=== PATIENT | female | born 1965 | race Caucasian/White ===

== ENCOUNTER 2016-09-20 15:02 | Outpatient (RCR) | payer OTHER, MEDICAID ==
[~2016-09-20 15:02] MED LIST: ASP81CT; ASP81TEC PO; C250T; CLD600T; CTLP20T PO; ENAL2.5T PO; FRSM20T PO; GABA600T2; GBPN600T; HYDR-3720; INSULIN PUMP; LEVO75TA57; MTC10T; MTP25TSR PO; MULT1TAB63; OMEP40CA36 PO; ONDA8TAB6 PO; ONDAN4ODT PO; OTC POTASSIUM; POTA10TA6 PO; PRILOSEC; VARE1TAB17 PO; decadron; humalog; levemir; oxycodone
[2016-09-20 15:18] LABS: BASOPHILS # (AUTO) 0.1 10^3/uL (0.0-0.1); BASOPHILS % (AUTO) 1 % (0-10); EOSINOPHILS # (AUTO) 0.1 10^3/uL (0.0-0.3); EOSINOPHILS % (AUTO) 2 % (0-10); LYMPHOCYTES # (AUTO) 1.1 X 10^3 (1.0-4.0); LYMPHOCYTES % (AUTO) 31 % (12-44); MEAN CORPUSCULAR HEMOGLOBIN 32 PG (25-34); MEAN CORPUSCULAR HGB CONC 34 G/DL (32-36); MEAN CORPUSCULAR VOLUME 95 FL (80-99); MEAN PLATELET VOLUME 8.9 FL (7.4-10.4); MONOCYTES # (AUTO) 0.4 X 10^3 (0.0-1.0); MONOCYTES % (AUTO) 10 % (0-12); NEUTROPHILS % (AUTO) 55 % (42-75); PLATELET COUNT 250 10^3/uL (130-400); RED BLOOD COUNT 4.11 10^6/uL (4.35-5.85); RED CELL DISTRIBUTION WIDTH 13.2 % (10.0-14.5); WHITE BLOOD COUNT 3.6 10^3/uL (4.3-11.0)
[2016-09-20 16:15] LABS: ALANINE AMINOTRANSFERASE 22 U/L (0-55); ALBUMIN 3.9 G/DL (3.2-4.5); ANION GAP 6 MMOL/L (5-14); ASPARTATE AMINO TRANSFERASE 26 U/L (5-34); BILIRUBIN,TOTAL 0.3 MG/DL (0.1-1.0); BLOOD UREA NITROGEN 17 MG/DL (7-18); BUN/CREATININE RATIO 20; CALCIUM 9.4 MG/DL (8.5-10.1); CARBON DIOXIDE 26 MMOL/L (21-32); CHLORIDE 105 MMOL/L (98-107); CREATININE SERUM 0.87 MG/DL (0.60-1.30); GFR ESTIMATED > 60; GLUCOSE 304 MG/DL (70-105); POTASSIUM 4.6 MMOL/L (3.6-5.0); SODIUM 137 MMOL/L (135-145); TOTAL PROTEIN 6.9 G/DL (6.4-8.2)
[2016-10-21] MEDS ORDERED: GLUC-144 PO (10:14)
[2016-10-21] MEDS ORDERED: CHOL400C9 PO (10:14)
[2016-10-21] MEDS ORDERED: CALC-6 PO (10:14)
[2016-10-21] MEDS ORDERED: PRAV20TA3 PO (10:14)
[2016-10-21] MEDS ORDERED: INSU100V16 (10:15)
[2016-10-21] MEDS ORDERED: LEVO200T6 PO (10:15)
[2016-10-21] MEDS ORDERED: GABA-488 PO (10:15)
[2016-10-21] MEDS ORDERED: POTA99TA7 PO (10:15)
[2016-10-21] MEDS ORDERED: LETR2.5T5 PO (10:15)
== END 2016-12-19 | disposition home or self-care (01) ==
LOC: ONC 15:02
PROVIDERS: ATTEND Internal Medicine Hematology & Oncology
DX: C50.511 Malignant neoplasm of lower-outer quadrant of right female breast (principal); C77.3 Secondary and unspecified malignant neoplasm of axilla and upper limb lymph nodes; R10.11 Right upper quadrant pain; M85.80 Other specified disorders of bone density and structure, unspecified site; Z17.0 Estrogen receptor positive status [ER+]; Z90.11 Acquired absence of right breast and nipple; Z92.3 Personal history of irradiation; Z79.811 Long term (current) use of aromatase inhibitors
CPT/HCPCS: 36415; 80053; 85025; 99213

== ENCOUNTER 2016-10-21 07:58 | Inpatient (IN) | payer OTHER, MEDICAID ==
[~2016-10-21] VITALS: Ht 170.2 cm; Wt 79.4 kg
[2016-10-21] MEDS ORDERED: NS IV 1000 ML 1,000 ML IV STA (08:10)
[2016-10-21] MEDS ORDERED: ONDANSETRON 4 MG/2 ML (SDV) Z0FRAN IVP ONE (08:15)
--- NOTE | 2016-10-21 08:19 | ED General ---
General Chief Complaint: Glucose Problems Stated Complaint: ELEV BLOOD SUGAR Source of Information: Patient Exam Limitations: No Limitations History of Present Illness Time Seen by Provider: 08:03 Initial Comments Here with report of elevated blood sugars, body aches and overall not feeling well for the last 24-36 hours. States that she believes she may have the flu. Does report nausea and vomiting as well as fatigue. No diarrhea. Patient does have insulin pump but does not seem to know how it's managed or her rates. She is unsure about bolus dosing. States that she just does not feel well. She is requesting ice chips or water but also states that she is nauseated. Timing/Duration: 1-2 Days Severity: Moderate Associated Systoms: No Cough, Fever/Chills, No Headaches, Malaise, Nausea/ Vomiting, No Shortness of Air, Weakness Allergies and Home Medications Allergies Coded Allergies: Penicillins (Verified Allergy, Unknown, 02/13/08) Home Medications Aspirin 81 Mg Tabec, 81 MG PO DAILY, (Reported) Enalapril Maleate 2.5 Mg Tablet, 2.5 MG PO BID, (Reported) Furosemide 20 Mg Tab, 20 MG PO DAILY, (Reported) Levothyroxine Sodium 75 Mcg Tablet, DAILY, Ref 0 (Reported) Metoprolol Succinate 25 Mg Tab.sr.24h, 1 EACH PO DAILY, (Reported) Omeprazole 40 Mg Capsule.dr, 40 MG PO DAILY, (Reported) Ondansetron Hcl 8 Mg Tablet, 8 MG PO PRN, (Reported) Potassium Chloride 10 Meq Tablet.sa, 1 EACH PO DAILY WITH FOOD, (Reported) [decadron] , UD, (Reported) [humalog] , UD, (Reported) [levemir] , UD, (Reported) [oxycodone] , PRN, (Reported) Constitutional: see HPI, chills, No fever EENTM: No nose congestion, No throat pain Respiratory: no symptoms reported, No cough, No short of breath Cardiovascular: no symptoms reported Gastrointestinal: see HPI, No abdominal pain, nausea, vomiting Genitourinary: No dysuria, No frequency, No pain Musculoskeletal: no symptoms reported Skin: no symptoms reported Psychiatric/Neurological: Denies Headache, Weakness Hematologic/Lymphatic: No Symptoms Reported All Other Systems Reviewed Negative Unless Noted: Yes Past Mgkzdeu-Cuapxd-Nvnkzn Hx Patient Social History Alcohol Use: Occasionally Uses Recreational Drug Use: No (2-3CIGS/ DAY) Smoking Status: Current Someday Smoker Recent Hopitalizations: Yes Surgeries HX Surgeries: Yes (C-SECT.X3,RUY, HYSTERECTOMY) Surgeries: Breast, Section, Hysterectomy Respiratory Hx Respiratory Disorders: No Cardiovascular Hx Cardiac Disorders: No Neurological Hx Neurological Disorders: Yes Reproductive System Hx Reproductive Disorders: Yes Sexually Transmitted Disease: No Genitourinary Hx Genitourinary Disorders: No Gastrointestinal Hx Gastrointestinal Disorders: Yes Musculoskeletal Hx Musculoskeletal Disorders: No Endocrine Hx Endocrine Disorders: Yes Endocrine Disorders: Diabetes, Insulin dep, Hypothyroidsim HEENT HX ENT Disorders: No Psychosocial Hx Psychiatric Problems: Yes Blood Transfusions Hx Blood Disorders: No Reviewed Nursing Assessment Reviewed/Agree w Nursing PMH: Yes Family Medical History Significant Family History: No Pertinent Family Hx Physical Exam Vital Signs Capillary Refill : General Appearance: WD/WN HEENT: PERRL/EOMI, Pharynx Normal Neck: Non Tender, Supple Respiratory: Lungs Clear, Normal Breath Sounds Cardiovascular: No Murmur, Tachycardia Gastrointestinal: Non Tender, Soft Back: Normal Inspection, No CVA Tenderness, No Vertebral Tenderness Extremity: Non Tender, No Calf Tenderness Neurologic/Psychiatric: Alert, Oriented x3 Skin: Normal Color, Warm/Dry Progress/Results/Core Measures Results/Orders Lab Results Laboratory Tests Test 10/21/16 08:20 Range/Units My Orders Orders - JASS COLLAZO MD Ondansetron Injection (Zofran Injectio (10/21/16 08:15) Ns Iv 1000 Ml (Sodium Chloride 0.9%) (10/21/16 08:10) Saline Lock/Iv-Start (10/21/16 08:10) Cbc With Automated Diff (10/21/16 08:10) Comprehensive Metabolic Panel (10/21/16 08:10) Hs C Reactive Protein (10/21/16 08:10) Magnesium (10/21/16 08:10) Ua Culture If Indicated (10/21/16 08:10) Influenza A And B Antigens (10/21/16 08:10) Phosphorus (10/21/16 08:10) Chest 1 View, Ap/Pa Only (10/21/16 08:10) Accucheck Stat ONCE (10/21/16 08:19) Medications Given in ED Current Medications Medications Dose Ordered Sig/[place] Route Start Time Stop Time Status Last Admin Dose Admin Ondansetron HCl 4 mg ONCE ONCE IVP 10/21/16 08:15 10/21/16 08:16 DC 10/21/16 08:21 4 MG Progress Note : Progress Note Seen and evaluated. IV, labs, UA, chest x-ray, normal saline 1 L bolus and Zofran 4 mg IV ordered. Monitor patient. Departure Departure-Patient Inst. Referrals: [facility] (PCP/Family) Primary Care Physician JASS COLLAZO MD Oct 21, 2016 08:19
[2016-10-21 08:27] LABS: BASOPHILS % (AUTO) 0 % (0-10); EOSINOPHILS % (AUTO) 0 % (0-10); LYMPHOCYTES # (AUTO) 0.9 X 10^3 (1.0-4.0); LYMPHOCYTES % (AUTO) 6 % (12-44); MEAN CORPUSCULAR HEMOGLOBIN 32 PG (25-34); MEAN CORPUSCULAR HGB CONC 33 G/DL (32-36); MEAN CORPUSCULAR VOLUME 97 FL (80-99); MEAN PLATELET VOLUME 9.8 FL (7.4-10.4); MONOCYTES # (AUTO) 1.5 X 10^3 (0.0-1.0); MONOCYTES % (AUTO) 9 % (0-12); NEUTROPHILS # (AUTO) 13.2 X 10^3 (1.8-7.8); NEUTROPHILS % (AUTO) 85 % (42-75); PLATELET COUNT 249 10^3/uL (130-400); RED BLOOD COUNT 4.53 10^6/uL (4.35-5.85); RED CELL DISTRIBUTION WIDTH 12.4 % (10.0-14.5); WHITE BLOOD COUNT 15.5 10^3/uL (4.3-11.0)
[2016-10-21 08:42] LABS: BAND NEUTROPHILS 7 %; BASOPHILS % (MANUAL) 0 %; EOSINOPHILS % (MANUAL) 0 %; LYMPHOCYTES % (MANUAL) 7 %; NEUTROPHILS % (MANUAL) 76 %
[2016-10-21 08:43] LABS: BURR CELLS SLIGHT
[2016-10-21 08:53] LABS: ALBUMIN 4.6 G/DL (3.2-4.5); BILIRUBIN,TOTAL 0.7 MG/DL (0.1-1.0); CALCIUM 10.2 MG/DL (8.5-10.1); CREATININE SERUM 2.03 MG/DL (0.60-1.30); MAGNESIUM 2.4 MG/DL (1.8-2.4); PHOSPHORUS 8.1 MG/DL (2.3-4.7); POTASSIUM 5.7 MMOL/L (3.6-5.0); hs C REACTIVE PROTEIN 1.13 MG/DL (0.00-0.50)
--- NOTE | 2016-10-21 08:55 | Diagnostic Imaging Report ---
Portable upright radiograph of the chest. INDICATION: Shortness of breath. FINDINGS: The lungs are clear. The heart size is normal. No effusion or pneumothorax The mediastinum and matias appear unremarkable. IMPRESSION: Unremarkable exam. Dictated by: Dictated on workstation # [id number]
[2016-10-21] MEDS ORDERED: inSUlin (REGULAR) HUMAN 1 UNIT/0.01 ML (CHARGE PER UNIT) IV STA (09:25)
[2016-10-21 10:07] LABS: ABG BASE EXCESS -23.6 MMOL/L (-2.5-2.5); ABG OXYGEN SATURATION 98 % (94-100); ABG PO2 123 MMHG (79-93); ABG TCO2 5.5 MMOL/L (21.0-31.0)
[2016-10-21] MEDS ORDERED: GLUC-144 PO (10:14)
[2016-10-21] MEDS ORDERED: PRAV20TA3 PO (10:14)
[2016-10-21] MEDS ORDERED: CALC-6 PO (10:14)
[2016-10-21] MEDS ORDERED: CHOL400C9 PO (10:14)
[2016-10-21] MEDS ORDERED: LEVO200T6 PO (10:15)
[2016-10-21] MEDS ORDERED: INSU100V16 (10:15)
[2016-10-21] MEDS ORDERED: GABA-488 PO (10:15)
[2016-10-21] MEDS ORDERED: LETR2.5T5 PO (10:15)
[2016-10-21] MEDS ORDERED: POTA99TA7 PO (10:15)
[2016-10-21 10:21] LABS: ABG HCO3 5 MMOL/L (23-27); ABG PCO2 19 MMHG (35-45); ABG PH 7.05 (7.37-7.43); ALLENS TEST YES-POS; PATIENT TEMP 98.5
[2016-10-21] MEDS ORDERED: NS IV 1000 ML 1,000 ML IV ONE ×2 (10:47→12:23)
[2016-10-21 12:00] VITALS: BP 93/56
[2016-10-21] MEDS ORDERED: [UNRECOGNIZED DRUG - OTHER] IV SCH ×2 (12:30)
[2016-10-21] MEDS ORDERED: CATHETER FLUSH 10 ML SYR IV PRN (12:30)
[2016-10-21] MEDS ORDERED: NS IV SCH ×2 (12:30)
[2016-10-21] MEDS ORDERED: D5 1/2 NS 1000 ML IV SOLUTION 1,000 ML IV SCH (12:30)
[2016-10-21] MEDS: 1/2 NS W/KCL 20 MEQ/L 1,000 ML IV SCH ×2 (12:34→14:22)
[2016-10-21] MEDS: D5 1/2 NS W/KCL 20 MEQ/L 1,000 ML IV SCH ×3 (12:35→18:48)
[2016-10-21] MEDS: 1/2 NS IV SOLUTION 1,000 ML IV SCH ×2 (13:00→16:47)
[2016-10-21 13:33] LABS: CALCIUM 8.3 MG/DL (8.5-10.1); CREATININE SERUM 1.62 MG/DL (0.60-1.30); POTASSIUM 4.6 MMOL/L (3.6-5.0)
[2016-10-21 15:30] LABS: CALCIUM 9.1 MG/DL (8.5-10.1); CREATININE SERUM 1.71 MG/DL (0.60-1.30); POTASSIUM 4.5 MMOL/L (3.6-5.0)
[2016-10-21 15:56] LABS: BILIRUBIN,URINE NEGATIVE (NEGATIVE); KETONES,URINE 4+ (NEGATIVE); LEUKOCYTE ESTERASE ,URINE NEGATIVE (NEGATIVE); NITRITE,URINE NEGATIVE (NEGATIVE); PH,URINE 5 (5-9); PROTEIN,URINE NEGATIVE (NEGATIVE); SQUAMOUS EPITHELIAL CELL,UR 0-2 /HPF; UROBILINOGEN,URINE NORMAL (NORMAL); WBC,URINE 0-2 /HPF
[2016-10-21 16:00] VITALS: BP 91/47
[2016-10-21 18:58] LABS: CREATININE SERUM 1.27 MG/DL (0.60-1.30); POTASSIUM 5.3 MMOL/L (3.6-5.0)
[2016-10-21 22:00] VITALS: BP 85/45
[2016-10-21 23:00] VITALS: BP 86/50
[2016-10-22] VITALS (19 sets, daily range): BP systolic 86–112; BP diastolic 42–66
[2016-10-22] MEDS: D5 1/2 NS W/KCL 20 MEQ/L 1,000 ML IV SCH ×2 (00:04→07:36)
[2016-10-22] MEDS ORDERED: DEXTROSE 10% IV SOLUTION 1,000 ML IV ONE (00:46)
[2016-10-22] MEDS: DEXTROSE 10% IV SOLUTION 1,000 ML IV SCH ×2 (00:55→07:36)
[2016-10-22 03:01] LABS: ANION GAP 10 MMOL/L (5-14); BLOOD UREA NITROGEN 27 MG/DL (7-18); BUN/CREATININE RATIO 28; CALCIUM 8.8 MG/DL (8.5-10.1); CARBON DIOXIDE 19 MMOL/L (21-32); CHLORIDE 105 MMOL/L (98-107); CREATININE SERUM 0.96 MG/DL (0.60-1.30); GFR ESTIMATED > 60; GLUCOSE 173 MG/DL (70-105); POTASSIUM 4.8 MMOL/L (3.6-5.0); SODIUM 134 MMOL/L (135-145)
[2016-10-22 05:00] LABS: BASOPHILS % (AUTO) 0 % (0-10); EOSINOPHILS % (AUTO) 0 % (0-10); LYMPHOCYTES # (AUTO) 1.3 X 10^3 (1.0-4.0); LYMPHOCYTES % (AUTO) 13 % (12-44); MEAN CORPUSCULAR HGB CONC 34 G/DL (32-36); MEAN CORPUSCULAR VOLUME 93 FL (80-99); MEAN PLATELET VOLUME 8.9 FL (7.4-10.4); MONOCYTES # (AUTO) 1.1 X 10^3 (0.0-1.0); MONOCYTES % (AUTO) 11 % (0-12); NEUTROPHILS % (AUTO) 76 % (42-75); PLATELET COUNT 203 10^3/uL (130-400); RED BLOOD COUNT 3.37 10^6/uL (4.35-5.85); RED CELL DISTRIBUTION WIDTH 12.1 % (10.0-14.5); WHITE BLOOD COUNT 10.5 10^3/uL (4.3-11.0)
[2016-10-22 05:06] LABS: MEAN CORPUSCULAR HEMOGLOBIN 31 PG (25-34)
[2016-10-22] MEDS: ACETAMINOPHEN 500 MG TAB (TYLENOL) PO PRN (05:16)
[2016-10-22 05:17] LABS: ALANINE AMINOTRANSFERASE 25 U/L (0-55); ALBUMIN 3.2 G/DL (3.2-4.5); ANION GAP 8 MMOL/L (5-14); ASPARTATE AMINO TRANSFERASE 27 U/L (5-34); BILIRUBIN,TOTAL 0.7 MG/DL (0.1-1.0); BLOOD UREA NITROGEN 24 MG/DL (7-18); BUN/CREATININE RATIO 27; CALCIUM 8.6 MG/DL (8.5-10.1); CARBON DIOXIDE 18 MMOL/L (21-32); CHLORIDE 106 MMOL/L (98-107); GFR ESTIMATED > 60; GLUCOSE 266 MG/DL (70-105); POTASSIUM 4.4 MMOL/L (3.6-5.0); SODIUM 132 MMOL/L (135-145); TOTAL PROTEIN 5.3 G/DL (6.4-8.2)
[2016-10-22] MEDS: 1/2 NS IV SOLUTION 1,000 ML IV SCH (07:35)
[2016-10-22] MEDS: 1/2 NS W/KCL 20 MEQ/L 1,000 ML IV SCH (07:36)
[2016-10-22] MEDS: LEVOTHYROXINE 100 MCG (LEVOTHROID) TAB PO SCH (10:43)
[2016-10-22] MEDS ORDERED: inSUlin ASPART (NovoLOG) 1 UNIT/0.01 ML (CHARGE PER UNIT) SQ SCH (10:45)
[2016-10-22] MEDS ORDERED: inSUlin ASPART (NovoLOG) 1 UNIT/0.01 ML (CHARGE PER UNIT) SC SCH (11:00)
--- NOTE | 2016-10-22 16:09 | History & Physicial (CHS) ---
HPI History of Present Illness: 51 yo F immunocompromised due to breast cancer treatment that presented to ER with elevated blood sugars, N/V. Patient was found to be in DKA. States that several days ago she started to get body aches and sore throat. Denies any fever or chills. The day of admission she had vomited 2 times. Denies any blood in vomit. Denies any abd pain or diarrhea. States that she has insulin pump and it has been difficult to keep her sugars under control for the last several days. She has had pump since 2007. Source: patient, RN/MD, old records Exam Limitations: no limitations Date seen by provider: Oct 22, 2016 Attending Physician Karlie Bradley MD PCP [facility] Date of Admission Oct 21, 2016 at 10:45 Home Medications Home Medications Reviewed patient Home Medication Reconciliation Form Allergies Coded Allergies: Penicillins (Verified Allergy, Unknown, 02/13/08) QFP-Cvucyn-Euwyma Hx Patient Social History Alcohol Use: Occasionally Uses Recreational Drug Use: No (2-3CIGS/ DAY) Smoking Status: Current Someday Smoker Type Used: Cigarettes Recent Foreign Travel: No Contact w/other who traveled: No Recent Hopitalizations: Yes Recent Infectious Disease Expo: No Physical Abuse Screen: No Sexual Abuse: No Immunizations Up To Date Date of Pneumonia Vaccine: Oct 12, 2011 Past Medical History Breast Cancer Insulin Dependent DM: on insulin pump from Endocrine in [place] Tobacco abuse Family Medical History Significant Family History: No Pertinent Family Hx Review of Systems (CHC) Constitutional: No chills, No dizziness, No fever, malaise, weakness EENTM: throat pain, No ear pain, No mouth pain, No nose congestion Respiratory: no symptoms reported, No cough, No dyspnea on exertion, No short of breath Cardiovascular: no symptoms reported, No chest pain, No edema, No palpitations Gastrointestinal: No abdominal pain, No constipation, No diarrhea, No hematemesis, loss of appetite, nausea, vomiting Genitourinary: no symptoms reported, No discharge, No dysuria, No frequency, No hematuria : No Musculoskeletal: muscle pain Skin: no symptoms reported, No lesions, No rash Psychiatric/Neurological: No Symptoms Reported, Denies Anxiety, Denies Depressed Reviewed Test Results Reviewed Test Results Lab Laboratory Tests Test 10/21/16 08:20 4/27/17 08:27 10/21/16 10:00 10/21/16 10:46 Range/Units White Blood Count 15.5 H 4.3-11.0 10^3/uL Red Blood Count 4.53 4.35-5.85 10^6/uL Hemoglobin 14.4 11.5-16.0 G/DL Hematocrit 44 35-52 % Mean Corpuscular Volume 97 80-99 FL Mean Corpuscular Hemoglobin 32 25-34 PG Mean Corpuscular Hemoglobin Concent 33 32-36 G/DL Red Cell Distribution Width 12.4 10.0-14.5 % Platelet Count 249 130-400 10^3/uL Mean Platelet Volume 9.8 7.4-10.4 FL Neutrophils (%) (Auto) 85 H 42-75 % Lymphocytes (%) (Auto) 6 L 12-44 % Monocytes (%) (Auto) 9 0-12 % Eosinophils (%) (Auto) 0 0-10 % Basophils (%) (Auto) 0 0-10 % Neutrophils # (Auto) 13.2 H 1.8-7.8 X 10^3 Lymphocytes # (Auto) 0.9 L 1.0-4.0 X 10^3 Monocytes # (Auto) 1.5 H 0.0-1.0 X 10^3 Eosinophils # (Auto) 0.0 0.0-0.3 10^3/uL Basophils # (Auto) 0.0 0.0-0.1 10^3/uL Neutrophils % (Manual) 76 % Lymphocytes % (Manual) 7 % Monocytes % (Manual) 10 % Eosinophils % (Manual) 0 % Basophils % (Manual) 0 % Band Neutrophils 7 % Diya Cells SLIGHT Sodium Level 132 L 135-145 MMOL/L Potassium Level 5.7 H 3.6-5.0 MMOL/L Chloride Level 94 L 98-107 MMOL/L Carbon Dioxide Level 6 *L 21-32 MMOL/L Anion Gap 32 H 5-14 MMOL/L Blood Urea Nitrogen 41 H 7-18 MG/DL Creatinine 2.03 H 0.60-1.30 MG/DL Estimat Glomerular Filtration Rate 26 BUN/Creatinine Ratio 20 Glucose Level 665 *H 70-105 MG/DL Calcium Level 10.2 H 8.5-10.1 MG/DL Phosphorus Level 8.1 H 2.3-4.7 MG/DL Magnesium Level 2.4 1.8-2.4 MG/DL Total Bilirubin 0.7 0.1-1.0 MG/DL Aspartate Amino Transf (AST/SGOT) 35 H 5-34 U/L Alanine Aminotransferase (ALT/SGPT) 31 0-55 U/L Alkaline Phosphatase 80 40-136 U/L C-Reactive Protein High Sensitivity 1.13 H 0.00-0.50 MG/DL Total Protein 8.0 6.4-8.2 G/DL Albumin 4.6 H 3.2-4.5 G/DL Glucometer 546 *H 538 *H 70-110 MG/DL Blood Gas Puncture Site L BRACH Blood Gas Patient Temperature 98.5 Arterial Blood pH 7.05 *L 7.37-7.43 Arterial Blood Partial Pressure CO2 19 *L 35-45 MMHG Arterial Blood Partial Pressure O2 123 H 79-93 MMHG Arterial Blood HCO3 5 *L 23-27 MMOL/L Arterial Blood Total CO2 5.5 L 21.0-31.0 MMOL/L Arterial Blood Oxygen Saturation 98 94-100 % Arterial Blood Base Excess -23.6 L -2.5-2.5 MMOL/L Tom Test YES-POS Blood Gas Ventilator Setting NO Blood Gas Inspired Oxygen RA Test 10/21/16 12:28 10/21/16 12:35 10/21/16 14:01 10/21/16 14:50 Range/Units Glucometer 512 *H 467 *H 70-110 MG/DL Sodium Level 135 136 135-145 MMOL/L Potassium Level 4.6 4.5 3.6-5.0 MMOL/L Chloride Level 103 102 98-107 MMOL/L Carbon Dioxide Level 9 *L 9 *L 21-32 MMOL/L Anion Gap 23 H 25 H 5-14 MMOL/L Blood Urea Nitrogen 40 H 42 H 7-18 MG/DL Creatinine 1.62 H 1.71 H 0.60-1.30 MG/DL Estimat Glomerular Filtration Rate 34 32 BUN/Creatinine Ratio 25 25 Glucose Level 538 *H 451 *H 70-105 MG/DL Hemoglobin A1c 8.8 H 4.5-6.2 % Calcium Level 8.3 L 9.1 8.5-10.1 MG/DL Test 10/21/16 15:05 10/21/16 15:17 10/21/16 16:21 10/21/16 17:32 Range/Units Glucometer 392 H 343 H 291 H 70-110 MG/DL Urine Color YELLOW Urine Clarity CLEAR Urine pH 5 5-9 Urine Specific [place] 1.020 1.016-1.022 Urine Protein NEGATIVE NEGATIVE Urine Glucose (UA) 4+ H NEGATIVE Urine Ketones 4+ H NEGATIVE Urine Nitrite NEGATIVE NEGATIVE Urine Bilirubin NEGATIVE NEGATIVE Urine Urobilinogen NORMAL NORMAL MG/DL Urine Leukocyte Esterase NEGATIVE NEGATIVE Urine RBC (Auto) 2+ H NEGATIVE Urine RBC 0-2 /HPF Urine WBC 0-2 /HPF Urine Squamous Epithelial Cells 0-2 /HPF Urine Crystals NONE /LPF Urine Bacteria TRACE /HPF Urine Casts NONE /LPF Urine Mucus SMALL H /LPF Urine Culture Indicated NO Test 10/21/16 18:25 10/21/16 18:40 10/21/16 19:44 10/21/16 20:51 Range/Units Sodium Level 134 L 135-145 MMOL/L Potassium Level 5.3 H 3.6-5.0 MMOL/L Chloride Level 111 H 98-107 MMOL/L Carbon Dioxide Level 11 L 21-32 MMOL/L Anion Gap 12 5-14 MMOL/L Blood Urea Nitrogen 35 H 7-18 MG/DL Creatinine 1.27 0.60-1.30 MG/DL Estimat Glomerular Filtration Rate 45 BUN/Creatinine Ratio 28 Glucose Level 263 H 70-105 MG/DL Calcium Level 9.0 8.5-10.1 MG/DL Glucometer 247 H 226 H 224 H 70-110 MG/DL Test 10/21/16 21:52 10/21/16 22:46 10/21/16 23:56 10/22/16 00:42 Range/Units Glucometer 189 H 153 H 121 H 106 70-110 MG/DL Test 10/22/16 01:38 10/22/16 02:11 10/22/16 02:16 10/22/16 02:53 Range/Units Glucometer 126 H 139 H 197 H 70-110 MG/DL Sodium Level 134 L 135-145 MMOL/L Potassium Level 4.8 3.6-5.0 MMOL/L Chloride Level 105 98-107 MMOL/L Carbon Dioxide Level 19 L 21-32 MMOL/L Anion Gap 10 5-14 MMOL/L Blood Urea Nitrogen 27 H 7-18 MG/DL Creatinine 0.96 0.60-1.30 MG/DL Estimat Glomerular Filtration Rate > 60 BUN/Creatinine Ratio 28 Glucose Level 173 H 70-105 MG/DL Calcium Level 8.8 8.5-10.1 MG/DL Test 10/22/16 03:37 10/22/16 04:45 10/22/16 04:47 10/22/16 05:40 Range/Units Glucometer 276 H 265 H 236 H 70-110 MG/DL White Blood Count 10.5 4.3-11.0 10^3/uL Red Blood Count 3.37 L 4.35-5.85 10^6/uL Hemoglobin 10.6 #L 11.5-16.0 G/DL Hematocrit 31 L 35-52 % Mean Corpuscular Volume 93 80-99 FL Mean Corpuscular Hemoglobin 31 25-34 PG Mean Corpuscular Hemoglobin Concent 34 32-36 G/DL Red Cell Distribution Width 12.1 10.0-14.5 % Platelet Count 203 130-400 10^3/uL Mean Platelet Volume 8.9 7.4-10.4 FL Neutrophils (%) (Auto) 76 H 42-75 % Lymphocytes (%) (Auto) 13 12-44 % Monocytes (%) (Auto) 11 0-12 % Eosinophils (%) (Auto) 0 0-10 % Basophils (%) (Auto) 0 0-10 % Neutrophils # (Auto) 8.0 H 1.8-7.8 X 10^3 Lymphocytes # (Auto) 1.3 1.0-4.0 X 10^3 Monocytes # (Auto) 1.1 H 0.0-1.0 X 10^3 Eosinophils # (Auto) 0.0 0.0-0.3 10^3/uL Basophils # (Auto) 0.0 0.0-0.1 10^3/uL Sodium Level 132 L 135-145 MMOL/L Potassium Level 4.4 3.6-5.0 MMOL/L Chloride Level 106 98-107 MMOL/L Carbon Dioxide Level 18 L 21-32 MMOL/L Anion Gap 8 5-14 MMOL/L Blood Urea Nitrogen 24 H 7-18 MG/DL Creatinine 0.90 0.60-1.30 MG/DL Estimat Glomerular Filtration Rate > 60 BUN/Creatinine Ratio 27 Glucose Level 266 H 70-105 MG/DL Calcium Level 8.6 8.5-10.1 MG/DL Total Bilirubin 0.7 0.1-1.0 MG/DL Aspartate Amino Transf (AST/SGOT) 27 5-34 U/L Alanine Aminotransferase (ALT/SGPT) 25 0-55 U/L Alkaline Phosphatase 48 40-136 U/L Total Protein 5.3 L 6.4-8.2 G/DL Albumin 3.2 3.2-4.5 G/DL Test 10/22/16 06:42 10/22/16 08:41 10/22/16 09:54 10/22/16 12:47 Range/Units Glucometer 192 H 154 H 218 H 278 H 70-110 MG/DL Radiology ADMIT DATE: 10/21/16/ER Signed Date of Exam: 10/21/16 CHEST 1 VIEW, AP/PA ONLY Portable upright radiograph of the chest. INDICATION: Shortness of breath. FINDINGS: The lungs are clear. The heart size is normal. No effusion or pneumothorax The mediastinum and matias appear unremarkable. IMPRESSION: Unremarkable exam. Physical Exam-(CHC) Physical Exam Vital Signs VS - Last 72 Hours, by Label 10/21/16 10/21/16 10/21/16 10/21/16 08:01 11:32 12:00 12:07 Temp 97.2 97.5 Pulse 100 92 88 Resp 18 16 B/P (MAP) 104/35 93/56 Pulse Ox 96 96 96 O2 Delivery Room Air Room Air 10/21/16 10/21/16 10/21/16 10/21/16 12:32 13:10 15:15 16:00 Temp 98.9 Pulse 109 109 98 Resp 18 B/P (MAP) 91/47 Pulse Ox 96 98 O2 Delivery Room Air 10/21/16 10/21/16 10/21/16 10/21/16 18:59 19:00 20:05 20:55 Temp 99.1 Pulse 95 Pulse Ox 96 96 10/21/16 10/21/16 10/21/16 10/22/16 20:55 22:00 23:00 00:00 Pulse 100 91 93 B/P (MAP) 85/45 86/50 93/48 Pulse Ox 96 97 99 99 O2 Delivery Room Air Room Air Room Air 10/22/16 10/22/16 10/22/16 10/22/16 00:00 01:00 01:00 02:00 Pulse 90 90 88 B/P (MAP) 93/47 95/49 Pulse Ox 99 99 99 O2 Delivery Room Air Room Air 10/22/16 10/22/16 10/22/16 10/22/16 03:00 04:00 04:00 05:00 Pulse 87 92 92 B/P (MAP) 94/52 86/46 97/55 Pulse Ox 99 95 96 95 O2 Delivery Room Air Room Air Room Air 10/22/16 10/22/16 10/22/16 10/22/16 06:00 07:00 07:31 07:40 Pulse 87 89 B/P (MAP) Pulse Ox 97 97 96 O2 Delivery Room Air 10/22/16 10/22/16 10/22/16 10/22/16 08:00 09:00 11:28 12:00 Temp 98.0 98.7 Pulse Ox 96 99 10/22/16 10/22/16 13:00 15:21 Pulse 104 Pulse Ox 99 Capillary Refill : Less Than 3 Seconds General Appearance: WD/WN, no apparent distress HEENT: PERRL/EOMI, normal ENT inspection, pharyngeal erythema Neck: non-tender, full range of motion, supple, normal inspection, No lymphadenopathy (R), No lymphadenopathy (L) Respiratory: chest non-tender, lungs clear, normal breath sounds, no respiratory distress, no accessory muscle use Cardiovascular: normal peripheral pulses, regular rate, rhythm, no edema, no gallop, no JVD, no murmur Gastrointestinal: normal bowel sounds, non tender, soft, no organomegaly, No guarding, No rebound Back: normal inspection, no CVA tenderness, no vertebral tenderness Extremities: normal range of motion, non-tender, normal inspection, no pedal edema, no calf tenderness, normal capillary refill Neurologic/Psychiatric: bean dumper II-XII nml as tested, no motor/sensory deficits, alert, normal mood/affect, oriented x 3 Skin: normal color, warm/dry Lymphatic: no adenopathy Assessment/Plan Assessment/Plan Plan 51 yo F known DM with insulin pump that was admitted in DKA DKA in insulin Dependent DM: pump controlled - Drip was d/c this AM and patient was transitioned to sub cutaneous insulin - Will get pump started this afternoon and continue to monitor sugars - A1c 8.8, down from 10.9 1.5 months ago - Continue PO hydration, D/c IV fluids Nausea and Vomiting - Zofran PRN - Influenza pending Normocytic Anemia - No signs of acute bleeding, at patients baseline - Fe studies pending Hypothyroidism - TSH pending, Continue home dose of 200 mcg HLD - Continue Statin Hypokalemia: Replaced PO, repeat BMP in AM HypoMg: Replaced IV and PO, repeat in AM FEN: DM diet DVT PPX: Lovenox Dispo: Will get patient started back on insulin pump and monitor blood sugars if stable plan to d/c in AM Diagnosis/Problems: Clinical Quality Measures DVT/VTE Risk/Contraindication: Risk Factor Score Per Nursin RFS Level Per Nursing on Admit: 2=Moderate Copy Copies To 1: [facility] R MD Oct 22, 2016 16:09
[2016-10-22] MEDS ORDERED: ENOXAPARIN 40 MG/0.4 ML (LOVENOX) SYR SC SCH (18:00)
[2016-10-22] MEDS: GABAPENTIN 300 MG (NEURONTIN) CAP PO SCH (20:58)
[2016-10-22] MEDS ORDERED: SIMvastatin 10 MG (ZOCOR) TAB PO SCH (21:00)
[2016-10-23] VITALS: BP 102/58
[2016-10-23 04:00] VITALS: BP 102/58
[2016-10-23 04:18] LABS: BASOPHILS % (AUTO) 1 % (0-10); EOSINOPHILS % (AUTO) 1 % (0-10); LYMPHOCYTES # (AUTO) 1.6 X 10^3 (1.0-4.0); LYMPHOCYTES % (AUTO) 25 % (12-44); MEAN CORPUSCULAR HEMOGLOBIN 32 PG (25-34); MEAN CORPUSCULAR HGB CONC 34 G/DL (32-36); MEAN CORPUSCULAR VOLUME 94 FL (80-99); MEAN PLATELET VOLUME 9.2 FL (7.4-10.4); MONOCYTES # (AUTO) 0.5 X 10^3 (0.0-1.0); MONOCYTES % (AUTO) 8 % (0-12); NEUTROPHILS % (AUTO) 65 % (42-75); PLATELET COUNT 200 10^3/uL (130-400); RED BLOOD COUNT 3.74 10^6/uL (4.35-5.85); RED CELL DISTRIBUTION WIDTH 12.9 % (10.0-14.5); WHITE BLOOD COUNT 6.2 10^3/uL (4.3-11.0)
[2016-10-23 04:38] LABS: ALANINE AMINOTRANSFERASE 25 U/L (0-55); ALBUMIN 3.8 G/DL (3.2-4.5); ANION GAP 9 MMOL/L (5-14); ASPARTATE AMINO TRANSFERASE 20 U/L (5-34); BILIRUBIN,TOTAL 0.7 MG/DL (0.1-1.0); BLOOD UREA NITROGEN 12 MG/DL (7-18); BUN/CREATININE RATIO 16; CALCIUM 9.6 MG/DL (8.5-10.1); CARBON DIOXIDE 27 MMOL/L (21-32); CHLORIDE 104 MMOL/L (98-107); CREATININE SERUM 0.73 MG/DL (0.60-1.30); GFR ESTIMATED > 60; GLUCOSE 109 MG/DL (70-105); POTASSIUM 3.8 MMOL/L (3.6-5.0); SODIUM 140 MMOL/L (135-145); TOTAL PROTEIN 6.5 G/DL (6.4-8.2)
[2016-10-23] MEDS: LEVOTHYROXINE 100 MCG (LEVOTHROID) TAB PO SCH (05:26)
[2016-10-23] MEDS: ACETAMINOPHEN 500 MG TAB (TYLENOL) PO PRN (06:23)
[2016-10-23] MEDS: GABAPENTIN 300 MG (NEURONTIN) CAP PO SCH (08:57)
[2016-10-23] MEDS ORDERED: LETROZOLE 2.5 MG (FEMARA) TAB PO SCH (09:00)
--- NOTE | 2016-10-23 12:05 | Discharge Summary ---
Diagnosis/Chief Complaint Date of Admission Oct 21, 2016 at 10:45 Date of Discharge 10/23/16 Admission Diagnosis Admission Diagnosis DKA in Insulin Dependent DM on pump Nausea and Vomiting ESTHER Discharge Diagnosis See Above Chief Complaint/HPI Chief Complaint/HPI 51 yo F immunocompromised due to breast cancer treatment that presented to ER with elevated blood sugars, N/V. Patient was found to be in DKA. States that several days ago she started to get body aches and sore throat. Denies any fever or chills. The day of admission she had vomited 2 times. Denies any blood in vomit. Denies any abd pain or diarrhea. States that she has insulin pump and it has been difficult to keep her sugars under control for the last several days. She has had pump since 2007. Discharge Summary-Simple/Stand Procedures None Consultations No Consults Discharge Physical Examination Allergies: Coded Allergies: Penicillins (Verified Allergy, Unknown, 02/13/08) Vitals & I&Os Vital Sign - Last 12Hours Date Time Temp Pulse Resp B/P (MAP) Pulse Ox O2 Delivery O2 Flow Rate FiO2 10/23/16 09:00 98 10/23/16 07:29 97.1 10/23/16 07:00 86 10/23/16 04:00 16 102/58 Room Air Intake and Output 10/23/16 00:00 Intake Total 485 ml Output Total 1250 ml Balance -765 ml General Appearance: Alert, Oriented X3, Cooperative, No Acute Distress HEENT: Atraumatic, PERRLA, EOMI, Mucous Memb Moist/[place] Respiratory: Clear to Auscultation, Normal Air Movement Cardiovascular: Regular Rate, Normal S1, Normal S2, No Murmurs Abdominal: Normal Bowel Sounds, Soft, No Tenderness, No Hepatosplenomegaly, No Masses Extremities: No Edema, Normal Pulses, No Tenderness/Swelling Skin: No Rashes, No Breakdown Neuro: Normal Gait, Normal Speech, Strength at 5/5 X4 Ext, Sensation Intact, Cranial Nerves 3-12 NL Psych/Mental Status: Mental Status NL, Mood NL Hospital Course See final discharge diagnosis. Labs A1c: 8.8 Pending Labs None pending Radiology Reviewed ADMIT DATE: 10/21/16/ER Signed Date of Exam: 10/21/16 CHEST 1 VIEW, AP/PA ONLY Portable upright radiograph of the chest. INDICATION: Shortness of breath. FINDINGS: The lungs are clear. The heart size is normal. No effusion or pneumothorax The mediastinum and matias appear unremarkable. IMPRESSION: Unremarkable exam. Discussion & Recommendations 51 yo F with known IDDM on insulin pump who presented in DKA DKA in IDDM controlled with pump: Patient was placed on insulin drip and her pump was turned off. Labs improved with hydration and drip. Day 2 patient was placed back on her pump with her basal insulin unchanged and patient bolus as she normally would. We continued to monitor blood sugars and they were much better controlled. Abdominal pain, N/V resolved. A1c 8.8 which patient states is down from over 10 one and a half months ago. Patient follows with Endocrinology in [place] for her pump and sees him next month. Nausea and Vomiting: Likely viral and exacerbated by DKA. Resolved at time of discharge. Acute Renal Failure: Patient was very dehydrated at time of admission. Cr quickly returned to baseline after aggressive fluid hydration. Has appt with [facility] next week with Dr Gabriel Discharge Condition at discharge Stable Instructions to patient/family Please see electonic discharge instructions given to patient. Discharge Medications Reviewed and agree with Discharge Medication list on patient's Discharge Instruction sheet Clinical Quality Measures DVT/VTE Risk/Contraindication: Risk Factor Score Per Nursin RFS Level Per Nursing on Admit: 2=Moderate Copy Copies To 1: [facility] MD Oct 23, 2016 12:05
--- NOTE | 2016-10-23 12:14 | Discharge Instructions ---
Discharge [facility] Discharge Medications New, Converted or Re-Newed RX: Other (No new medication) Continued Medications: Calcium Carbonate/Vitamin D3 (Calcium 600 + Vit D 200 Tablet) 1 Each Tablet 1 TAB PO DAILY, TAB Cholecalciferol (Vitamin D3) (Vitamin D3) 400 Unit Capsule 400 UNIT PO DAILY, CAP Gabapentin (Gabapentin) 300 Mg Capsule 300 MG PO BID, CAP LAST FILLED #60 08-12-16 Glucosamine HCl/Chondr Garcia A Na (Osteo Bi-Flex Caplet) 1 Each Tablet 1 TAB PO BID, TAB Insulin Aspart (Novolog) 100 Unit/1 Ml Susp PER INSULIN PUMP, EA Letrozole (Letrozole) 2.5 Mg Tablet 2.5 MG PO DAILY, TAB LAST FILLED #30 17 Levothyroxine Sodium (Levothyroxine Sodium) 200 Mcg Tablet 200 MCG PO DAILY, TAB Potassium (Potassium) 99 Mg Tablet 99 MG PO DAILY, TAB Pravastatin Sodium (Pravastatin Sodium) 20 Mg Tablet 20 MG PO HS, TAB Patient Instructions Goal/Follow Up Appt: You have a follow up appt with Dr Gabriel on October 28 1:20pm After this appt you will follow with your PCP Stephanie Brooks Patient Instructions: Make sure that you check your blood sugars Follow diabetic diet Stay well hydrated Return to The Hospital For: Nausea and Vomiting chest pain Shortness of breath Activity & Diet Discharge Diet: ADA Diet Activity as Tolerated: Yes Copy Copies To 1: [facility]ahnie HOLLY R MD Oct 23, 2016 12:14
[2016-10-23 13:24] VITALS: BP 102/58
== END 2016-10-23 13:27 | disposition home or self-care (01) | DRG 638 ==
LOC: EDUNIT# 07:58 → ER 07:59 → ICU 10:45 → 4TH 10-22 14:21 → ICU 10-22 14:21
PROVIDERS: ADMIT Family Medicine; ATTEND Family Medicine
DX: E13.10 Other specified diabetes mellitus with ketoacidosis without coma (principal); N17.9 Acute kidney failure, unspecified; F17.210 Nicotine dependence, cigarettes, uncomplicated; C50.511 Malignant neoplasm of lower-outer quadrant of right female breast; E03.9 Hypothyroidism, unspecified; D64.9 Anemia, unspecified; E78.5 Hyperlipidemia, unspecified; E87.6 Hypokalemia; E83.42 Hypomagnesemia; Z79.4 Long term (current) use of insulin
CPT/HCPCS: 36415; 71010; 80048; 80053; 81000; 82805; 82962; 83036; 83735; 84100; 85007; 85025; 85027; 86141; 87804; 94760; 96361; 96374; 96375

== ENCOUNTER → 2017-03-10 | Outpatient (CLI) | payer OTHER, MEDICAID ==
[~2017-03-10] MED LIST changes: +CALC-6 PO; +CHOL400C9 PO; +GABA-488 PO; +GLUC-144 PO; +INSU100V16; +LETR2.5T5 PO; +LEVO200T6 PO; +POTA99TA7 PO; +PRAV20TA3 PO
--- NOTE | 2017-03-10 21:44 | Diagnostic Imaging Report ---
Diagnostic left breast mammogram with tomography. INDICATION: History of breast cancer. COMPARISON: 09/22/15. The current study was also evaluated with a Computer Aided Detection (CAD) system. FINDINGS: The left breast is composed of scattered fibroglandular densities. There is a benign-appearing calcification seen. There is no mass, architectural distortion or suspicious cluster of calcification. Allowing for technique and positional differences, no suspicious change is seen. IMPRESSION: No significant change. ACR BI-RADS Category 2: Benign findings. Result letter will be mailed to the patient. Note: At least 10% of breast cancer is not imaged by mammography. Dictated by: Dictated on workstation # [id number]
== END ==
LOC: RAD 08:49
PROVIDERS: ATTEND Nurse Practitioner Adult Health
DX: C50.511 Malignant neoplasm of lower-outer quadrant of right female breast (principal); Z84.81 Family history of carrier of genetic disease

== ENCOUNTER 2017-03-30 12:48 | Outpatient (RCR) | payer OTHER, MEDICAID ==
[2017-03-30 13:23] LABS: BASOPHILS # (AUTO) 0.1 10^3/uL (0.0-0.1); BASOPHILS % (AUTO) 1 % (0-10); EOSINOPHILS # (AUTO) 0.1 10^3/uL (0.0-0.3); EOSINOPHILS % (AUTO) 1 % (0-10); HEMATOCRIT 43 % (35-52); HEMOGLOBIN 14.7 G/DL (11.5-16.0); LYMPHOCYTES # (AUTO) 1.4 X 10^3 (1.0-4.0); LYMPHOCYTES % (AUTO) 34 % (12-44); MEAN CORPUSCULAR HEMOGLOBIN 32 PG (25-34); MEAN CORPUSCULAR HGB CONC 34 G/DL (32-36); MEAN CORPUSCULAR VOLUME 93 FL (80-99); MEAN PLATELET VOLUME 9.4 FL (7.4-10.4); MONOCYTES # (AUTO) 0.3 X 10^3 (0.0-1.0); MONOCYTES % (AUTO) 7 % (0-12); NEUTROPHILS # (AUTO) 2.4 X 10^3 (1.8-7.8); NEUTROPHILS % (AUTO) 57 % (42-75); PLATELET COUNT 214 10^3/uL (130-400); RED BLOOD COUNT 4.64 10^6/uL (4.35-5.85); RED CELL DISTRIBUTION WIDTH 12.5 % (10.0-14.5); WHITE BLOOD COUNT 4.1 10^3/uL (4.3-11.0)
[2017-03-30 13:47] LABS: ALANINE AMINOTRANSFERASE 18 U/L (0-55); ALBUMIN 4.4 GM/DL (3.2-4.5); ALKALINE PHOSPHATASE 66 U/L (40-136); BILIRUBIN,TOTAL 0.7 MG/DL (0.1-1.0); BUN/CREATININE RATIO 19; CALCIUM 9.8 MG/DL (8.5-10.1); CARBON DIOXIDE 23 MMOL/L (21-32); CHLORIDE 103 MMOL/L (98-107); CREATININE SERUM 0.74 MG/DL (0.60-1.30); GFR ESTIMATED > 60; GLUCOSE 209 MG/DL (70-105); POTASSIUM 3.7 MMOL/L (3.6-5.0); SODIUM 137 MMOL/L (135-145); TOTAL PROTEIN 7.8 GM/DL (6.4-8.2)
== END 2017-06-28 | disposition home or self-care (01) ==
LOC: ONC 12:48
PROVIDERS: ATTEND Internal Medicine Hematology & Oncology
DX: C50.511 Malignant neoplasm of lower-outer quadrant of right female breast (principal); C77.3 Secondary and unspecified malignant neoplasm of axilla and upper limb lymph nodes; R10.11 Right upper quadrant pain; M85.80 Other specified disorders of bone density and structure, unspecified site; Z17.0 Estrogen receptor positive status [ER+]; Z90.11 Acquired absence of right breast and nipple; Z92.3 Personal history of irradiation; Z79.811 Long term (current) use of aromatase inhibitors
CPT/HCPCS: 36415; 80053; 85025; 99213

== ENCOUNTER 2017-09-28 15:28 | Outpatient (RCR) | payer OTHER, MEDICAID ==
[2017-09-28 15:48] LABS: BASOPHILS % (AUTO) 1 % (0-10); EOSINOPHILS # (AUTO) 0.2 10^3/uL (0.0-0.3); EOSINOPHILS % (AUTO) 4 % (0-10); HEMATOCRIT 38 % (35-52); HEMOGLOBIN 13.3 G/DL (11.5-16.0); LYMPHOCYTES % (AUTO) 23 % (12-44); MEAN CORPUSCULAR HEMOGLOBIN 32 PG (25-34); MEAN CORPUSCULAR HGB CONC 35 G/DL (32-36); MEAN CORPUSCULAR VOLUME 92 FL (80-99); MEAN PLATELET VOLUME 9.2 FL (7.4-10.4); MONOCYTES # (AUTO) 0.3 X 10^3 (0.0-1.0); MONOCYTES % (AUTO) 7 % (0-12); NEUTROPHILS # (AUTO) 2.9 X 10^3 (1.8-7.8); NEUTROPHILS % (AUTO) 65 % (42-75); PLATELET COUNT 235 10^3/uL (130-400); RED BLOOD COUNT 4.16 10^6/uL (4.35-5.85); RED CELL DISTRIBUTION WIDTH 12.3 % (10.0-14.5); WHITE BLOOD COUNT 4.5 10^3/uL (4.3-11.0)
[2017-09-28 16:14] LABS: ALANINE AMINOTRANSFERASE 23 U/L (0-55); ALBUMIN 4.1 GM/DL (3.2-4.5); ALKALINE PHOSPHATASE 71 U/L (40-136); BILIRUBIN,TOTAL 0.2 MG/DL (0.1-1.0); BUN/CREATININE RATIO 33; CALCIUM 9.5 MG/DL (8.5-10.1); CARBON DIOXIDE 27 MMOL/L (21-32); CHLORIDE 103 MMOL/L (98-107); CREATININE SERUM 0.76 MG/DL (0.60-1.30); GFR ESTIMATED > 60; GLUCOSE 308 MG/DL (70-105); SODIUM 137 MMOL/L (135-145)
== END 2017-12-27 | disposition home or self-care (01) ==
LOC: ONC 15:28
PROVIDERS: ATTEND Internal Medicine Hematology & Oncology
DX: C50.511 Malignant neoplasm of lower-outer quadrant of right female breast (principal); C77.3 Secondary and unspecified malignant neoplasm of axilla and upper limb lymph nodes; M85.80 Other specified disorders of bone density and structure, unspecified site; Z17.0 Estrogen receptor positive status [ER+]; Z90.11 Acquired absence of right breast and nipple; Z92.3 Personal history of irradiation; Z79.811 Long term (current) use of aromatase inhibitors
CPT/HCPCS: 36415; 80053; 85025; 99213

== ENCOUNTER 2018-06-01 14:10 | Emergency (ER) | payer MEDICAID ==
[~2018-06-01] VITALS: Ht 170.2 cm; Wt 81.6 kg
[2018-06-01] MEDS ORDERED: NS IV 1000 ML 1,000 ML IV SCH (14:32)
--- NOTE | 2018-06-01 14:44 | ED Integumentary General ---
General Stated Complaint: NAUSEA;RASH Source: patient, other Exam Limitations: no limitations History of Present Illness Date Seen by Provider: Jun 01, 2018 Time Seen by Provider: 14:26 Initial Comments The patient presents to ER by private conveyance with chief complaint that she' s having a rash that started up today. Started on her back of her right arm above the elbow and then has also appeared on her right anterior trunk and around her right flank to the belly button and just crossing the midline at the level of her breast as well as around her back. Bright red itchy painful. She had a shingles vaccination shot about one year ago. She's had nausea body aches feeling poorly and spent all day yesterday asleep in bed which is unusual for her. She has a history of mastectomy on the right side secondary to breast cancer about 5 years ago. She is status post chemotherapy therapy. She is not on any immunosuppressants. She has not taken any new medications, new soaps or shampoos or laundry detergent, dryer sheets etc. She has 3 dogs that go outside as well as a cat which Occasionally sleeps with her. She denies any tick bites or bug bites. Allergies and Home Medications Allergies Coded Allergies: Penicillins (Verified Allergy, Unknown, 02/13/08) Home Medications Calcium Carbonate/Vitamin D3 1 Each Tablet, 1 TAB PO DAILY, (Reported) Cholecalciferol (Vitamin D3) 400 Unit Capsule, 400 UNIT PO DAILY, (Reported) Gabapentin 300 Mg Capsule, 300 MG PO BID, (Reported) LAST FILLED #60 2-16-17 Glucosamine HCl/Chondr Garcia A Na 1 Each Tablet, 1 TAB PO BID, (Reported) Insulin Aspart 100 Unit/1 Ml Susp, PER INSULIN PUMP, (Reported) Letrozole 2.5 Mg Tablet, 2.5 MG PO DAILY, (Reported) LAST FILLED #30 2-16-17 Levothyroxine Sodium 200 Mcg Tablet, 200 MCG PO DAILY, (Reported) Potassium 99 Mg Tablet, 99 MG PO DAILY, (Reported) Pravastatin Sodium 20 Mg Tablet, 20 MG PO HS, (Reported) Patient Home Medication List Home Medication List Reviewed: Yes Review of Systems Review of Systems Constitutional: No chills, No diaphoresis, No fever; malaise EENTM: No ear discharge, No ear pain Respiratory: No cough, No short of breath Cardiovascular: No chest pain, No edema Gastrointestinal: No abdominal pain, No constipation, No diarrhea; nausea; No vomiting Genitourinary: No discharge, No dysuria Musculoskeletal: No back pain, No joint pain Skin: pruritus, rash Psychiatric/Neurological: Denies Numbness, Denies Paresthesia Past Cgvneqq-Sbmmez-Irgias Hx Patient Social History Alcohol Use: Occasionally Uses Alcohol Beverage of Choice: Beer Recreational Drug Use: No Smoking Status: Current Everyday Smoker Type Used: Cigarettes Recent Hopitalizations: Yes Immunizations Up To Date Date of Pneumonia Vaccine: Oct 12, 2011 Seasonal Allergies Seasonal Allergies: No Past Medical History Surgeries: Yes (C-SECT.X3,RUY, HYSTERECTOMY) Breast, Section, Hysterectomy Respiratory: No Cardiac: No Neurological: Yes Reproductive Disorders: Yes Sexually Transmitted Disease: No Genitourinary: No Gastrointestinal: No Musculoskeletal: No Endocrine: Yes Diabetes, Insulin dep, Hypothyroidsim HEENT: No Cancer: Yes Breast Did You Recieve Any Treatments: Yes What Type of Treatment Did You: Chemotherapy, Radiation Psychosocial: No Integumentary: No Blood Disorders: No Family Medical History No Pertinent Family Hx Physical Exam Vital Signs Capillary Refill : General Appearance: WD/WN, mild distress HEENT: PERRL/EOMI, normal ENT inspection, pharynx normal Neck: non-tender, full range of motion, supple, normal inspection Cardiovascular: normal peripheral pulses, regular rate, rhythm Respiratory: lungs clear, normal breath sounds, no respiratory distress, no accessory muscle use Gastrointestinal: normal bowel sounds, non tender, soft Extremities: normal capillary refill Neurologic/Psychiatric: alert, normal mood/affect, oriented x 3 Skin: rash (erythematous confluence is along the right trunk just crossing the midline at the level of the breast and down to the waistline going around the right flank and along the right back. Irregular border. Blanchable. There is also a similar irregularly bordered erythematous patch approximately 8 cm diameter on the distal portion overlying the triceps heads of the right arm. There is no scaling, papules, crusting. Mildly tender but described as painful and very pruritic.) Progress/Results/Core Measures Results/Orders Lab Results Laboratory Tests Test 06/01/18 15:21 06/01/18 15:31 06/01/18 15:41 Range/Units White Blood Count 13.0 H 4.3-11.0 10^3/uL Red Blood Count 4.29 L 4.35-5.85 10^6/uL Hemoglobin 13.4 11.5-16.0 G/DL Hematocrit 40 35-52 % Mean Corpuscular Volume 92 80-99 FL Mean Corpuscular Hemoglobin 31 25-34 PG Mean Corpuscular Hemoglobin Concent 34 32-36 G/DL Red Cell Distribution Width 12.9 10.0-14.5 % Platelet Count 225 130-400 10^3/uL Mean Platelet Volume 9.2 7.4-10.4 FL Neutrophils (%) (Auto) 84 H 42-75 % Lymphocytes (%) (Auto) 9 L 12-44 % Monocytes (%) (Auto) 7 0-12 % Eosinophils (%) (Auto) 0 0-10 % Basophils (%) (Auto) 0 0-10 % Neutrophils # (Auto) 10.9 H 1.8-7.8 X 10^3 Lymphocytes # (Auto) 1.2 1.0-4.0 X 10^3 Monocytes # (Auto) 0.9 0.0-1.0 X 10^3 Eosinophils # (Auto) 0.0 0.0-0.3 10^3/uL Basophils # (Auto) 0.0 0.0-0.1 10^3/uL Sodium Level 133 L 135-145 MMOL/L Potassium Level 3.6 3.6-5.0 MMOL/L Chloride Level 100 98-107 MMOL/L Carbon Dioxide Level 24 21-32 MMOL/L Anion Gap 9 5-14 MMOL/L Blood Urea Nitrogen 11 7-18 MG/DL Creatinine 0.70 0.60-1.30 MG/DL Estimat Glomerular Filtration Rate > 60 BUN/Creatinine Ratio 16 Glucose Level 216 H 70-105 MG/DL Calcium Level 9.2 8.5-10.1 MG/DL Corrected Calcium 9.4 8.5-10.1 MG/DL Total Bilirubin 0.7 0.1-1.0 MG/DL Aspartate Amino Transf (AST/SGOT) 17 5-34 U/L Alanine Aminotransferase (ALT/SGPT) 14 0-55 U/L Alkaline Phosphatase 82 40-136 U/L C-Reactive Protein High Sensitivity 13.31 H 0.00-0.50 MG/DL Total Protein 6.9 6.4-8.2 GM/DL Albumin 3.7 3.2-4.5 GM/DL Lactic Acid Level 0.89 0.50-2.00 MMOL/L My Orders Orders - ESDRAS DUMONT Cbc With Automated Diff (06/01/18 14:32) Comprehensive Metabolic Panel (06/01/18 14:32) Hs C Reactive Protein (06/01/18 14:32) Blood Culture (06/01/18 14:32) Saline Lock/Iv-Start (06/01/18 14:32) Ns Iv 1000 Ml (Sodium Chloride 0.9%) (06/01/18 14:32) Lactic Acid Analyzer (06/01/18 14:32) Ondansetron Injection (Zofran Injectio (06/01/18 14:45) Ketorolac Injection (Toradol Injection) (06/01/18 14:45) Hydroxyzine Oral (Vistaril Capsule) (06/01/18 15:00) Chest Pa/Lat (2 View) (06/01/18 15:00) Medications Given in ED Current Medications Medications Dose Ordered Sig/One[place] Route Start Time Stop Time Status Last Admin Dose Admin Hydroxyzine Pamoate 50 mg ONCE ONCE PO 06/01/18 15:00 12 15:01 DC 18 15:24 50 MG Ketorolac Tromethamine 30 mg ONCE ONCE IVP 06/01/18 14:45 06/01/18 14:46 DC 06/01/18 15:05 30 MG Ondansetron HCl 4 mg ONCE ONCE IVP 06/01/18 14:45 06/01/18 14:46 DC 06/01/18 15:05 4 MG Progress Progress Note : Time: 14:57 Progress Note We'll check basic labs, culture. If this was smaller. We will think about contact dermatitis. Because of her history of breast cancer and lymph node disruption on the same side we'll consider a more broad differential includes malignancy. It crosses the midline and does not conform to just one dermatome so a single lesion does not seem to explain this. The patch on the arm and the large confluence covering 75% of the right side of the chest do not touch. It originated on the arm and then showed up later the same day on her chest. It is not necessarily on any of the light exposed surfaces. Start something for pain, nausea and antibiotics and reevaluate. Chest x-ray to look for significant adenopathy. Diagnostic Imaging Diagonstic Imaging: Xray Plain Films/CT/US/NM/MRI: chest Comments [facility], [facility]. [place], [place] NAME: CLARE PHILIP [facility] REC#: [id number] PT STATUS: REG ER : 1965 PHYSICIAN: ESDRAS DUMONT MD ADMIT DATE: 06/01/18/ER Draft Date of Exam:06/01/18 CHEST PA/LAT (2 VIEW) Procedure: Chest PA/LAT (2 view). Indication: Nausea and rash. Shortness of breath. Comparison: 10/21/2016. Findings: No focal pneumonic consolidation, pleural effusion or pneumothorax. Stable right apical subpleural scarring which may be due to radiation fibrosis. Normal heart size and pulmonary vasculature. Right axillary lymph node dissection and right mastectomy are noted. Impression: No acute cardiopulmonary process. Dictated on workstation # [id number] Dict: 06/01/18 1629 Trans: 06/01/18 1636 [facility] [id number] Interpreted by: NAA ASH MD Electronically signed by: Reviewed: Reviewed by Me Departure Impression Primary Impression: Pruritic erythematous rash Disposition: 01 HOME, SELF-CARE Condition: Stable Departure-Patient Inst. Decision time for Depature: 17:07 Referrals: VONNIE BAUMANN MD (PCP) Primary Care Physician EUGENIO BELTRAN (Family) Primary Care Physician Patient Instructions: Skin Rash (DC) Add. Discharge Instructions: Use a hypoallergenic skin ointment such as Nutraderm, Cetaphil, CeraVe daily to keep your skin moisturized healthy. Take Claritin or Zyrtec one tablet once or twice a day for the itching. You can also use the Vistaril 1-2 tablets every 6 hours as needed for breakthrough itching. Vistaril will cause drowsiness. If you 're having significant pain that is not treated with Tylenol 1000 mg or ibuprofen 800 mg and you can use tramadol 1 tablet every 6 hours as needed. Follow up with your primary care provider and if your rash persists consider doing a biopsy. Scripts Tramadol HCl (Tramadol HCl) 50 Mg Tablet 50 MG PO Q6H PRN for PAIN, #20 TAB 0 Refills Prov: ESDRAS DUMONT 06/01/18 Hydroxyzine Pamoate (Vistaril) 25 Mg Capsule 1-2 EA PO Q6H PRN for ITCHING, #30 CAP 0 Refills Prov: ESDRAS DUMONT 06/01/18 Copy Copies To 1: JACOB DAWSON TITUS J Jun 01, 2018 14:44
[2018-06-01] MEDS ORDERED: ONDANSETRON 4 MG/2 ML (SDV) Z0FRAN IVP ONE (14:45)
[2018-06-01] MEDS ORDERED: KETOROLAC 30 MG/ML VIAL IVP ONE (14:45)
[2018-06-01] MEDS ORDERED: hydrOXYzine (VISTARIL) 25 MG CAP PO ONE (15:00)
[2018-06-01 15:27] LABS: BASOPHILS % (AUTO) 0 % (0-10); EOSINOPHILS % (AUTO) 0 % (0-10); HEMATOCRIT 40 % (35-52); HEMOGLOBIN 13.4 G/DL (11.5-16.0); LYMPHOCYTES # (AUTO) 1.2 X 10^3 (1.0-4.0); LYMPHOCYTES % (AUTO) 9 % (12-44); MEAN CORPUSCULAR HEMOGLOBIN 31 PG (25-34); MEAN CORPUSCULAR HGB CONC 34 G/DL (32-36); MEAN CORPUSCULAR VOLUME 92 FL (80-99); MEAN PLATELET VOLUME 9.2 FL (7.4-10.4); MONOCYTES # (AUTO) 0.9 X 10^3 (0.0-1.0); MONOCYTES % (AUTO) 7 % (0-12); NEUTROPHILS # (AUTO) 10.9 X 10^3 (1.8-7.8); NEUTROPHILS % (AUTO) 84 % (42-75); PLATELET COUNT 225 10^3/uL (130-400); RED BLOOD COUNT 4.29 10^6/uL (4.35-5.85); RED CELL DISTRIBUTION WIDTH 12.9 % (10.0-14.5)
[2018-06-01 16:09] LABS: ALANINE AMINOTRANSFERASE 14 U/L (0-55); ALBUMIN 3.7 GM/DL (3.2-4.5); ALKALINE PHOSPHATASE 82 U/L (40-136); BILIRUBIN,TOTAL 0.7 MG/DL (0.1-1.0); BUN/CREATININE RATIO 16; CALCIUM 9.2 MG/DL (8.5-10.1); CARBON DIOXIDE 24 MMOL/L (21-32); CHLORIDE 100 MMOL/L (98-107); GFR ESTIMATED > 60; GLUCOSE 216 MG/DL (70-105); POTASSIUM 3.6 MMOL/L (3.6-5.0); SODIUM 133 MMOL/L (135-145); TOTAL PROTEIN 6.9 GM/DL (6.4-8.2)
--- OUTSIDE RECORDS SUMMARY | 2018-06-01 16:21 | XMS REPORT ---
Author Author EUGENIO BELTRAN Organization [facility] Address [address] [place] [address] Care Team Providers Care Director Of Student Life Name Role Phone EUGENIO BELTRAN Unavailable PROBLEMS Type Condition ICD9-CM Code [id number] Code Onset Dates Condition Status SNOMED Code Problem Primary osteoarthritis involving multiple joints M15.0 Active 833081585 Problem Rheumatoid arthritis involving multiple sites with positive rheumatoid factor M05.79 Active 652557647 Problem Dysthymia F34.1 Active 38245188 Problem Diabetes E11.9 Active 23894486 Problem Hypothyroid E03.9 Active 09559868 Problem Rheumatoid arthritis M06.9 Active 55885430 Problem History of breast cancer Z85.3 Active 327107262 ALLERGIES Substance Reaction Event Type Date Status Penicillin G Sodium hives Drug Allergy Jan, Active ENCOUNTERS Encounter Location Date Diagnosis [facility] [id number] [place] [address] 20145- 4193 Jan, Diabetes E11.9 ; Hypothyroid E03.9 ; Dysthymia F34.1 and History of breast cancer Z85.3 [facility] [address], [place] [address] Dec, [facility] [id number] [place] [address] 14516- 0818 Sep, Diabetes E11.9 [facility] [address], [place] [address] 0538 Aug, [facility] [id number] [place] [address] 73312- 5159 Jul, [facility] [address], [place] [address] 2418 Jul, [facility] [id number] [address] 7785 Jul, [facility] [id number] [place] [address] 66633- 1623 Jul, Diabetes E11.9 and Dysthymia F34.1 [facility] [id number] [place] [address] 33656- 6989 Jul, [facility] [id number] [place] [address] 45330- 5710 Jun, Callus L84 and Diabetes E11.9 [facility] [id number] [place] [address] 84260- 4518 May, [facility] [id number] [place] [address] 96272- 7254 Apr, [facility] [id number] [place] [address] 53082- 2599 Apr, [facility] [id number] [place] [address] 13292- 7746 Apr, Diabetes E11.9 ; Hypothyroid E03.9 ; Dysthymia F34.1 ; Tobacco abuse Z72.0 ; Colon cancer screening Z12.11 and Encounter for immunization Z23 [facility] [address], [place] [address]- 0286 Dec, [facility] [id number] [place] [address] 68095- 4746 Dec, [facility] [id number] [place] [address] 61926- 1939 Dec, Hypothyroid E03.9 and Diabetes E11.9 [facility] [id number] [place] [address] 22919- 6367 Nov, [facility] [id number] [place] [address] 74224- 0410 Nov, [facility] [id number] [place] [address] 44101- 8690 Nov, [facility] [address], [place] [address]- 1118 Nov, Hypothyroid E03.9 [facility] [address] 7435 October, Hypothyroid E03.9 [facility] [address] [place] [address] 06006- 0705 October, Diabetes E11.9 [facility] [id number] [place] [address] 27723- 8814 Aug, Hypothyroid E03.9 [facility] [id number] [place] [address] 72915- 1941 Aug, Hypothyroid E03.9 [facility] [address], [place] [address]- 8177 Apr, Hypothyroid E03.9 [facility] [id number] [place] [address] 27546- 4634 Apr, Diabetes E11.9 and Hypothyroid E03.9 [facility] [id number] [place] [address] 73156- 9036 Mar, Encounter for immunization Z23 [facility] [address] [place] [address] 24779- 8940 Feb, Diabetes E11.9 [facility] [address] [place] [address] 42495- 5054 Jan, [facility] [address], [place] [address]- 5593 Jan, [facility] [id number] [place] [address] 16906- 6518 Jan, Diabetes E11.9 [facility] [id number] [address]- 2905 Dec, Trigger middle finger of right hand M65.331 ; Trigger finger of right thumb M65.311 ; Trigger finger of left thumb M65.312 and Trigger ring finger of left hand M65.342 [facility] [address] [place] [address]- 8556 Dec, [facility] [id number] [place] [address]- 2546 Dec, Hypothyroid E03.9 [facility] [address] [place] [address]- 6496 Nov, [facility] [id number], [place] [address]- 9379 October, [facility] [id number] [address]- 7823 October, Hypothyroid E03.9 [facility] [address] [place] [address]- 4696 October, [facility] [address], [place] [address]- 8658 Sep, Hypothyroid E03.9 and Diabetes E11.9 [facility] [address] [address]- 5582 Sep, Diabetes E11.9 and Hypothyroid E03.9 [facility] [address], [place] [address]- 2927 Sep, [facility] [address], [place] [address]- 0438 Aug, [facility] [id number] [address]- 254 Aug, [facility] [address] [address] 8880 Aug, [facility] [id number] [address]- 2544 Aug, [facility] [address], [place] [address]- 8518 Aug, [facility] [id number], [place] [address]- 4936 Jul, [facility] [address]- 2696 Jun, [facility] [address] 9579 Jun, Rheumatoid arthritis involving multiple sites with positive rheumatoid factor M05.79 [facility] [address] 3250 Jun, [facility] [id number] [place] [address] 565077- 3960 May, [facility] [address] [place] [address] 108060- 1672 May, Rheumatoid arthritis involving multiple sites with positive rheumatoid factor M05.79 [facility] [id number] [place] [address] 23790- 9197 May, [facility] [address], [place] [address]- 9694 May, Rheumatoid arthritis involving multiple sites with positive rheumatoid factor M05.79 [facility] [address], [place] [address]- 4745 Apr, Diabetes E11.9 ; Long-term insulin use Z79.4 ; Insulin pump in place Z96.41 ; Arthralgia of hand, unspecified laterality M79.643 and History of breast cancer Z85.3 [facility] [address], [place] [address]- 9370 Apr, [facility] [id number] [address]- 3603 Mar, [facility] [address], [place] [address]- 2259 Mar, [facility] [address], [place] [address]- 3730 28 Feb, 2015 UTI (urinary tract infection) 599.0 [facility] [address] [id number], [place] [address]- 8826 28 Feb, 2015 UTI (urinary tract infection) 599.0 [facility] [address] [id number], [place] [address]- 7466 28 Feb, 2015 UTI (urinary tract infection) 599.0 [facility] [address] [id number], [place] [address]- 3925 28 Feb, 2015 UTI (urinary tract infection) 599.0 [facility] [address] [id number], [place] [address]- 1281 22 Feb, 2015 [facility] [address] [id number], [place] [address]- 2484 17 Feb, 2015 [facility] [address] [id number], [place] [address]- 8341 15 Feb, 2015 [facility] [address] [id number], [place] [address]- 7210 14 Feb, 2015 [facility] [address] [id number], [place] [address]- 4578 11 Nov, 2014 Trigger finger of right hand 727.03 [facility] [address] [id number], [place] [address]- 3752 14 Sep, 2014 [facility] [address] [id number], [place] [address]- 8752 13 Sep, 2014 [facility] [address] [id number], [place] [address]- 3152 Aug, [facility] [address] [id number], [place] [address]- 8186 Aug, [facility] [address] [id number], [place] [address]- 7280 02 Aug, 2014 [facility] [address] [id number], [place] [address]- 7395 Aug, [facility] [place] [facility] [address] [id number] [place] [address]- 5224 Jul, [facility] [place] [facility] [address] [id number] [place] [address]- 8697 Jul, [facility] [place] [facility] [address] [id number] [place] [address]- 6079 Jul, [facility] [place] [facility] [address] [id number] [place] [address]- 7577 Jul, [facility] [place] [facility] [address] [id number] [place] [address]- 7894 Jun, [facility] [place] [facility] [address] [id number] [place] [address]- 6760 Jun, [facility] [place] [facility] [address] [id number] [place] [address]- 8600 May, [facility] [place] [facility] [address] [id number] [place] [address]- 9793 May, [facility] [place] [facility] [address] [id number] [place] [address]- 6777 May, [facility] [place] [facility] [address] [id number] [place] [address]- 4098 May, [facility] [place] [facility] [address] [id number] [place] [address]- 0209 Apr, [facility] [place] [facility] [address] [id number] [place] [address]- 7433 Apr, [facility] [place] [facility] [address] [id number] [place] [address]- 6637 Mar, [facility] [place] [facility] [address] [id number] [place] [address]- 6398 14 Mar, 2014 [facility] [place] [facility] [address] [id number] [place] [address]- 7379 14 Mar, 2014 [facility] [place] [facility] [address] [id number] [place] [address]- 0146 14 Mar, 2013 [facility] [place] [facility] [address] [id number] [place] [address]- 1219 09 Mar, 2013 [facility] [place] [facility] [address] [id number] [place] [address]- 6938 09 Mar, 2013 [facility] [place] [facility] [address] [id number] [place] [address]- 0581 07 Mar, 2013 [facility] [place] [facility] [address] [id number] [place] [address]- 1618 07 Mar, 2013 [facility] [place] [facility] [address] [id number] [place] [address]- 8217 25 Sep, 2013 [facility] [place] [facility] [address] [id number] [place] [address]- 0463 25 Sep, 2013 [facility] [place] [facility] [address] [id number] [place] [address]- 4247 18 Sep, 2013 [facility] [place] [facility] [address] [id number] [place] [address]- 1879 18 Sep, 2013 [facility] [place] [facility] [address] [id number] [place] [address]- 254 10 Sep, 2013 [facility] [place] [facility] [address] [id number] [place] [address]- 5338 10 Sep, 2013 [facility] [place] [facility] [address] [id number] [place] [address]- 254 05 Sep, 2013 [facility] [place] [facility] [address] [id number] [place] [address]- 2549 05 Sep, 2013 [facility] [place] [facility] [address] [id number] [place] [address]- 2543 05 Sep, 2013 [facility] [place] [facility] [address] [id number] [place] [address]- 2545 05 Sep, 2013 [facility] [place] [facility] [address] [id number] [place] [address]- 0386 Feb, [facility] [place] [facility] [address] [id number] [place] [address]- 6441 Feb, [facility] [place] [facility] [address] [id number] [place] [address]- 4628 Jan, [facility] [place] [facility] [address] [id number] [place] [address]- 6679 Jan, [facility] [place] [facility] [address] [id number] [place] [address]- 1994 Jan, [facility] [place] [facility] [address] [id number] [place] [address]- 4235 Jan, [facility] [place] [facility] [address] [id number] [place] [address]- 9648 Dec, [facility] [place] [facility] [address] [id number] [place] [address]- 5785 Dec, [facility] [place] [facility] [address] [id number] [place] [address]- 5056 Dec, [facility] [place] [facility] [address] [id number] [place] [address]- 9410 Dec, [facility] [place] [facility] [address] [id number] [place] [address]- 9398 Dec, [facility] [place] [facility] [address] [id number] [place] [address]- 8501 Dec, [facility] [place] [facility] [address] [id number] [place] [address]- 6845 Dec, [facility] [place] [facility] [address] [id number] [place] [address]- 7840 Dec, [facility] [place] [facility] [address] [id number] [place] [address]- 6069 Dec, [facility] [place] [facility] [address] [id number] [place] [address]- 0417 Dec, [facility] [place] [facility] [address] [id number] [place] [address]- 2200 Dec, [facility] [place] [facility] [address] [id number] [place] [address]- 0553 Dec, [facility] [place] [facility] [address] [id number] [place] [address]- 0733 October, [facility] [place] [facility] [address] [id number] [place] [address]- 2643 October, [facility] [place] [facility] [address] [id number] [place] [address]- 4857 Aug, [facility] [place] [facility] [address] [id number] [place] [address]- 3858 Aug, [facility] [place] [facility] [address] [id number] [place] [address]- 2618 Aug, [facility] [place] [facility] [address] [id number] [place] [address]- 7793 Aug, [facility] [place] [facility] [address] [id number] [place] [address]- 8919 Jun, [facility] [place] [facility] [address] [id number] [place] [address]- 6435 Jun, [facility] [place] [facility] [address] [id number] [place] [address]- 4571 Jun, [facility] [place] [facility] [address] [id number] [place] [address]- 6292 Jun, [facility] [place] [facility] [address] [id number] [place] [address]- 5663 Jun, [facility] [place] [facility] [address] [id number] [place] [address]- 6632 Jun, [facility] [place] [facility] [address] [id number] [place] [address]- 5730 Jun, [facility] [place] [facility] [address] [id number] [place] [address]- 7635 Jun, [facility] [place] [facility] [address] [id number] [place] [address]- 0442 May, [facility] [place] [facility] [address] [id number] [place] [address]- 8522 May, [facility] [place] [facility] [address] [id number] [place] [address]- 0957 Apr, [facility] [place] [facility] [address] [id number] [place] [address]- 7651 Apr, [facility] [place] [facility] [address] [id number] [place] [address]- 5271 15 Apr, 2013 [facility] [place] [facility] [address] [id number] [place] [address]- 4828 Apr, [facility] [place] [facility] [address] [id number] [place] [address]- 1609 Apr, [facility] [place] [facility] [address] [id number] [place] [address]- 2872 Mar, [facility] [place] [facility] [address] [id number] [place] [address]- 5534 Mar, [facility] [place] [facility] [address] [id number] [place] [address]- 0244 Mar, [facility] [place] [facility] [address] [id number] [place] [address]- 3547 Mar, [facility] [place] [facility] [address] [id number] [place] [address]- 2855 Feb, [facility] [place] [facility] [address] [id number] [place] [address]- 2541 Jan, [facility] [place] [facility] [address] [id number] [place] [address]- 2546 Dec, [facility] [place] [facility] [address] [id number] [place] [address]- 2546 Dec, [facility] [place] [facility] [address] [id number] [place] [address]- 5974 Dec, [facility] [address] [id number] [place] [address]- 9617 Dec, [facility] [address] [id number] [place] [address]- 6557 Nov, [facility] [address] [id number] [place] [address]- 5089 October, [facility] [address] [id number] [place] [address]- 4612 October, [facility] [address] [id number] [place] [address]- 7408 October, [facility] [address] [id number] [place] [address]- 2407 October, [facility] [address] [id number] [place] [address]- 7544 October, [facility] [address] [id number] [place] [address]- 7191 October, [facility] [address] [id number] [place] [address]- 5437 October, [facility] [address] [id number] [place] [address]- 2191 October, [facility] [address] [id number] [place] [address]- 1373 Sep, [facility] [place] [facility] [address] [id number] [place] [address]- 5133 Sep, [facility] [place] [facility] [address] [id number] [place] [address]- 1930 Sep, [facility] [place] [facility] [address] [id number] [place] [address]- 2306 Aug, [facility] [place] [facility] [address] [id number] [place] [address]- 2544 Aug, [facility] [place] [facility] [address] [id number] [place] [address]- 4767 28 Aug, 2012 [facility] [place] [facility] [address] [id number] [place] [address]- 8357 27 Aug, 2012 [facility] [place] [facility] [address] [id number] [place] [address]- 7046 14 Aug, 2012 [facility] [place] [facility] [address] [id number] [place] [address]- 9311 05 Aug, 2012 [facility] [place] [facility] [address] [id number] [place] [address] Jul, [facility] [place] [facility] [address] [id number] [place] [address] Jun, [facility] [place] [facility] [address] [id number] [place] [address] 24 Mar, 2012 [facility] [place] [facility] [address] [id number] [place] [address] 24 Mar, 2012 [facility] [place] [facility] [address] [id number] [place] [address] Mar, [facility] [place] [facility] [address] [id number] [place] [address] 18 Mar, 2012 [facility] [place] [facility] [address] [id number] [place] [address] 18 Mar, 2012 [facility] [place] [facility] [address] [id number] [place] [address]46 25 Feb, 2012 [facility] [place] [facility] [address] [id number] [place] [address] 24 Feb, 2011 [facility] [place] [facility] [address] [id number] [place] [address] 20 Sep, 2011 [facility] [place] [facility] [address] [id number] [place] [address]46 04 Sep, 2011 [facility] [place] [facility] [address] [id number] [place] [address] 2543 04 Feb, 2012 [facility] [place] [facility] [address] [id number] [place] [address] Jan, [facility] [place] [facility] [address] [id number] [place] [address] Nov, [facility] [place] [facility] [address] [id number] [place] [address] Nov, [facility] [place] [facility] [address] [id number] [place] [address] Nov, [facility] [address] [id number] [place] [address] Sep, [facility] [place] [facility] [address] [id number] [place] [address] Sep, [facility] [address] [id number] [place] [address] Sep, [facility] [address] [id number] [place] [address] Aug, [facility] [address] [id number] [place] [address] 47[address] Aug, [facility] [address] [id number] [place] [address] Jul, [facility] [place] [facility] [address] [id number] [place] [address] Jul, [facility] [address] [id number] [place] [address] Jun, [facility] [place] [facility] [address] [id number] [place] [address] Jun, [facility] [place] [facility] [address] [id number] [place] [address] May, [facility] [place] [facility] [address] [id number] [place] [address] May, [facility] [place] [facility] [address] [id number], [place] [address] 20 May, 2011 [facility] [address] [id number] [place] [address] 14 May, 2011 [facility] [place] [facility] [address] [id number] [place] [address] 14 May, 2011 [facility] [address] [id number] [place] [address] 23 Apr, 2011 [facility] [place] [facility] [address] [id number] [place] [address] 10 Aug, 2010 [facility] [address] [id number] [place] [address] 18 Jul, 2010 [facility] [place] [facility] [address] [id number] [place] [address] 18 Apr, 2010 [facility] [address] [facility] [id number] [place] [address] Apr, [facility] [place] [facility] [address] [id number] [place] [address] Apr, [facility] [address] [facility] [id number] [place] [address] 14 Mar, 2010 [facility] [place] [facility] [address] [facility] [id number] [place] [address] Jan, [facility] [address] [id number] [place] [address] 16 Sep, 2009 [facility] [place] [facility] [address] [id number], [place] [address] Jun, [facility] [place] [facility] [address] [id number] [place] [address] 29 May, 2009 [facility] [place] [facility] [address] [id number] [place] [address] 07 May, 2009 [facility] [place] [facility] [address] [facility] [id number] [place] [address] May, [facility] [place] [facility] [address] [facility] [place] [id number] [place] [address] Mar, [facility] [address] [facility] [place] [id number], [place] [address] Feb, [facility] [address] [facility] [place] [id number][place] [address] Nov, [facility] [address] [facility] [place] [id number], [place] [address] Aug, IMMUNIZATIONS No Known Immunizations SOCIAL HISTORY Never Assessed REASON FOR VISIT DM check up. KENNA Dumont PLAN OF CARE Activity Details Follow Up 3 Months Reason:DM VITAL SIGNS Height 67 in 2018-02-06 Weight 187.5 lbs 2018-02-06 Temperature 97.2 degrees Fahrenheit 2018-02-06 Heart Rate 68 bpm 2018-02-06 Respiratory Rate 18 2018-02-06 BMI 29.36 kg/m2 2018-02-06 Blood pressure systolic 124 mmHg 2018-02-06 Blood pressure diastolic 60 mmHg 2018-02-06 MEDICATIONS Medication Instructions Dosage Frequency Start Date End Date Duration Status Eun Contour Test N/A test blood sugar Feb, Active Ibuprofen 200 MG Active Eun Contour next Link w/Device Active B Complex Active Vitamin D 1000 UNIT Orally Once a day 1 tablet 24h Active Gabapentin 300 MG Orally 2 times a day 1 capsule 12h 90 Active Gelatin 650 MG Orally Once a day 4 capsules after a meal 24h Not- Taking Femara 2.5 mg take 1 tablet (2.5 mg) by oral route once daily Apr, Active Krill Oil Ultra Strength 1500 MG Orally Once a day 1 capsule 24h Active Levothyroxine Sodium 200 MCG TAKE ONE TABLET BY MOUTH ONCE DAILY 90 Active Ketone Test N/A In Vitro PRN as directed Feb, Active Escitalopram Oxalate 20 MG Orally Once a day 1 tablet 24h Jul, 90 Active Osteo Bi-Flex Regular Strength 250-200 MG Orally 2 times a day 1 tablet with a meal 12h Active potassium Oral Once a day 1 tablet 24h Active Humalog 100 UNIT/ML as directed per insulin pump Sep, Active Calcium Oral Once a day 2 tablets 24h Active Wellbutrin XL 150 MG Orally Once a day 1 tablet in the morning 24h Jan, 90 days Active RESULTS Name Result Date Reference Range A1C (IN HOUSE) 2018-02-06 A1C IN HOUSE 10.2 4.3 - 5.6 % Previous A1c 10.2 Lot [id number] Exp date 08/2019 PROCEDURES Procedure Date Ordered Result Body Site GLYCATED HEMOGLOBIN TEST Feb 06, 2018 INSTRUCTIONS MEDICATIONS ADMINISTERED No Known Medications MEDICAL (GENERAL) HISTORY Type Description Date Medical History DM Medical History Cholecystectomy Medical History Breast Cancer 04/2012 Surgical History post cholecystectomy Surgical History Hysterectomy Surgical History Masectomy Surgical History section x 3 Surgical History carpal tunnel release bilateral Surgical History bilateral trigger finger release Hospitalization History DKA at in [place] September 2016
--- OUTSIDE RECORDS SUMMARY | 2018-06-01 16:21 | XMS REPORT ---
Author Author EUGENIO BELTRAN Organization [facility] Address [address] [place] [address] Care Team Providers Care Sql Architect Name Role Phone EUGENIO BELTRAN Unavailable PROBLEMS Type Condition ICD9-CM Code [id number] Code Onset Dates Condition Status SNOMED Code Problem Primary osteoarthritis involving multiple joints M15.0 Active 563930096 Problem Rheumatoid arthritis involving multiple sites with positive rheumatoid factor M05.79 Active 498470958 Problem Dysthymia F34.1 Active 56335969 Problem Diabetes E11.9 Active 38685174 Problem Hypothyroid E03.9 Active 43552451 Problem Rheumatoid arthritis M06.9 Active 52964408 Problem History of breast cancer Z85.3 Active [id number] ALLERGIES No Information ENCOUNTERS Encounter Location Date Diagnosis [facility] [id number] [place] [address] 48530- 4930 Mar, Encounter for immunization Z23 [facility] [id number] [place] [address] 84397- 3654 Jan, Diabetes E11.9 ; Hypothyroid E03.9 ; Dysthymia F34.1 and History of breast cancer Z85.3 [facility] [id number] [place] [address] 00779- 9529 Dec, [facility] [place] [id number] [place] [address] 40486- 5001 Sep, Diabetes E11.9 [facility] [place] [id number] [place] [address] 50187- 1057 Aug, [facility] [place] [id number] [place] [address] 78675- 8019 Jul, [facility] [place] [id number] [place] [address] 33298- 6493 Jul, [facility] [address] [address] 2460 Jul, [facility] [id number] [place] [address] 57597- 1510 Jul, Diabetes E11.9 and Dysthymia F34.1 [facility] [id number] [place] [address] 53601- 6280 Jul, [facility] [id number] [place] [address] 79449- 6296 Jun, Callus L84 and Diabetes E11.9 [facility] [id number] [place] [address] 77053- 6313 May, [facility] [id number] [place] [address] 27698- 1507 Apr, [facility] [id number] [place] [address] 90647- 2327 Apr, [facility] [id number] [place] [address] 11016- 0714 Apr, Diabetes E11.9 ; Hypothyroid E03.9 ; Dysthymia F34.1 ; Tobacco abuse Z72.0 ; Colon cancer screening Z12.11 and Encounter for immunization Z23 [facility] [address], [place] [address] 6180 Dec, [facility] [id number] [place] [address] 28476- 7623 Dec, [facility] [id number] [place] [address] 16615- 0267 Dec, Hypothyroid E03.9 and Diabetes E11.9 [facility] [id number] [place] [address] 81616- 3502 Nov, [facility] [id number] [place] [address] 24922- 4866 Nov, [facility] [address], [place] [address]- 8717 Nov, [facility] [address] [place] [address]- 7977 Nov, Hypothyroid E03.9 [facility] [address] [place] [address]- 3516 October, Hypothyroid E03.9 [facility] [id number] [place] [address] 40090- 3955 October, Diabetes E11.9 [facility] [id number] [place] [address], [place] [address]- 4882 Aug, Hypothyroid E03.9 [facility] [address] [place] [address]- 0090 Aug, Hypothyroid E03.9 [facility] [id number] [place] [address], [place] [address]- 8179 Apr, Hypothyroid E03.9 [facility] [address] [place] [address]- 8242 Apr, Diabetes E11.9 and Hypothyroid E03.9 [facility] [address] [address]- 8468 Mar, Encounter for immunization Z23 [facility] [address], [place] [address]- 8957 Feb, Diabetes E11.9 [facility] [address], [place] [address]- 0277 Jan, [facility] [id number] [place] [address]- 8408 Jan, [facility] [address], [place] [address]- 1728 Jan, Diabetes E11.9 [facility] [address] [place] [address]- 7947 Dec, Trigger middle finger of right hand M65.331 ; Trigger finger of right thumb M65.311 ; Trigger finger of left thumb M65.312 and Trigger ring finger of left hand M65.342 [facility] [address], [place] [address]- 3937 Dec, [facility] [address], [place] [address]- 3313 Dec, Hypothyroid E03.9 [facility] [id number] [place] [address] 44311- 3860 Nov, [facility] [id number] [place] [address] 96737- 6941 October, [facility] [id number] [address]- 4282 October, Hypothyroid E03.9 [facility] [address] [place] [address] 39873- 4544 October, [facility] [id number] [place] [address] 62244- 9476 Sep, Hypothyroid E03.9 and Diabetes E11.9 [facility] [address], [place] [address]- 6987 Sep, Diabetes E11.9 and Hypothyroid E03.9 [facility] [address], [place] [address]- 0594 Sep, [facility] [address], [place] [address]- 0992 Aug, [facility] [address], [place] [address]- 1601 Aug, [facility] [address], [place] [address]- 8425 Aug, [facility] [address], [place] [address]- 7982 Aug, [facility] [id number], [place] [address]- 4931 Aug, [facility] [address], [place] [address]- 5003 Jul, [facility] [address] 1166 Jun, [facility] [address] 3119 Jun, Rheumatoid arthritis involving multiple sites with positive rheumatoid factor M05.79 [facility] [address], [place] [address]- 7197 Jun, [facility] [address] 7392 May, [facility] [address] 5113 May, Rheumatoid arthritis involving multiple sites with positive rheumatoid factor M05.79 [facility] [address], [place] [address]- 2307 May, [facility] [address] 9610 May, Rheumatoid arthritis involving multiple sites with positive rheumatoid factor M05.79 [facility] [address] 2357 Apr, Diabetes E11.9 ; Long-term insulin use Z79.4 ; Insulin pump in place Z96.41 ; Arthralgia of hand, unspecified laterality M79.643 and History of breast cancer Z85.3 [facility] [id number] 2376 Apr, [facility] [address] 6536 Mar, [facility] [id number] 3142 Mar, [facility] [address] [id number], [place] [address]- 9043 28 Feb, 2015 UTI (urinary tract infection) 599.0 [facility] [address] [id number], [place] [address] 2546 28 Feb, 2015 UTI (urinary tract infection) 599.0 [facility] [address] [id number], [place] [address] 2546 28 Feb, 2015 UTI (urinary tract infection) 599.0 [facility] [address] [id number], [place] [address] 2547 28 Feb, 2015 UTI (urinary tract infection) 599.0 [facility] [address] [id number], [place] [address]- 2106 22 Feb, 2015 [facility] [address] [id number], [place] [address]- 7666 17 Feb, 2015 [facility] [address] [id number], [place] [address]- 5468 15 Feb, 2015 [facility] [address] [id number], [place] [address]- 2042 14 Feb, 2015 [facility] [address] [facility] [id number], [place] [address]- 6279 Nov, Trigger finger of right hand 727.03 [facility] [address] [id number], [place] [address]- 7826 Sep, [facility] [address] [id number], [place] [address]- 254 Sep, [facility] [address] [id number] 6181 Aug, [facility] [address] [id number] 5816 Aug, [facility] [address] [id number] 5151 Aug, [facility] [place] [facility] [address] [id number] [place] [address]- 5558 Aug, [facility] [place] [facility] [address] [id number] [place] [address]- 4558 Jul, [facility] [place] [facility] [address] [id number] [place] [address]- 1356 Jul, [facility] [place] [facility] [address] [id number] [place] [address]- 4350 Jul, [facility] [place] [facility] [address] [id number] [place] [address]- 2391 Jul, [facility] [place] [facility] [address] [id number] [place] [address]- 2276 Jun, [facility] [place] [facility] [address] [id number] [place] [address]- 6908 Jun, [facility] [place] [facility] [address] [id number] [place] [address]- 3567 18 May, 2014 [facility] [place] [facility] [address] [id number] [place] [address]- 8928 18 May, 2014 [facility] [place] [facility] [address] [id number] [place] [address]- 8228 18 May, 2014 [facility] [place] [facility] [address] [id number] [place] [address]- 1687 18 May, 2014 [facility] [place] [facility] [address] [id number] [place] [address]- 3301 Apr, [facility] [place] [facility] [address] [id number] [place] [address]- 1221 Apr, [facility] [place] [facility] [address] [id number] [place] [address]- 4967 14 Mar, 2014 [facility] [place] [facility] [address] [id number] [place] [address]- 8596 14 Mar, 2014 [facility] [place] [facility] [address] [id number], [place] [address]- 9666 14 Mar, 2014 [facility] [place] [facility] [address] [id number] [place] [address]- 9251 14 Mar, 2014 [facility] [place] [facility] [address] [id number] [place] [address]- 9647 Mar, [facility] [place] [facility] [address] [id number] [place] [address]- 0593 Mar, [facility] [place] [facility] [address] [id number] [place] [address]- 6947 Mar, [facility] [place] [facility] [address] [id number] [place] [address]- 3002 Mar, [facility] [place] [facility] [address] [id number] [place] [address]- 0545 25 Feb, 2013 [facility] [place] [facility] [address] [id number] [place] [address]- 0862 25 Feb, 2013 [facility] [place] [facility] [address] [id number] [place] [address]- 8177 18 Sep, 2013 [facility] [place] [facility] [address] [id number] [place] [address]- 8308 18 Sep, 2013 [facility] [place] [facility] [address] [id number] [place] [address]- 6426 10 Feb, 2013 [facility] [place] [facility] [address] [id number], [place] [address]- 8234 10 Sep, 2013 [facility] [place] [facility] [address] [id number], [place] [address]- 6519 05 Sep, 2013 [facility] [place] [facility] [address] [id number] [place] [address]- 2544 05 Sep, 2013 [facility] [place] [facility] [address] [id number], [place] [address]- 2542 05 Sep, 2013 [facility] [place] [facility] [address] [id number] [place] [address]- 2549 05 Sep, 2013 [facility] [place] [facility] [address] [id number] [place] [address]- 9034 Feb, [facility] [place] [facility] [address] [id number] [place] [address]- 1926 Feb, [facility] [place] [facility] [address] [id number] [place] [address]- 2736 Jan, [facility] [place] [facility] [address] [id number] [place] [address]- 2284 Jan, [facility] [place] [facility] [address] [id number] [place] [address]- 6541 Jan, [facility] [place] [facility] [address] [id number] [place] [address]- 1128 Jan, [facility] [place] [facility] [address] [id number] [place] [address]- 0647 Dec, [facility] [place] [facility] [address] [id number] [place] [address]- 2177 Dec, [facility] [place] [facility] [address] [id number] [place] [address]- 6890 Dec, [facility] [place] [facility] [address] [id number] [place] [address]- 9149 Dec, [facility] [place] [facility] [address] [id number] [place] [address]- 3727 Dec, [facility] [place] [facility] [address] [id number] [place] [address]- 7307 Dec, [facility] [place] [facility] [address] [id number] [place] [address]- 5448 Dec, [facility] [place] [facility] [address] [id number] [place] [address]- 2452 Dec, [facility] [place] [facility] [address] [id number] [place] [address]- 9261 Dec, [facility] [place] [facility] [address] [id number] [place] [address]- 2802 Dec, [facility] [place] [facility] [address] [id number] [place] [address]- 9953 Dec, [facility] [place] [facility] [address] [id number] [place] [address]- 8763 Dec, [facility] [place] [facility] [address] [id number] [place] [address]- 5981 October, [facility] [place] [facility] [address] [id number] [place] [address]- 6511 October, [facility] [place] [facility] [address] [id number] [place] [address]- 4274 Aug, [facility] [place] [facility] [address] [id number] [place] [address]- 9271 Aug, [facility] [place] [facility] [address] [id number] [place] [address]- 9030 Aug, [facility] [place] [facility] [address] [id number] [place] [address]- 3498 Aug, [facility] [place] [facility] [address] [id number] [place] [address]- 8979 Jun, [facility] [place] [facility] [address] [id number] [place] [address]- 5415 Jun, [facility] [place] [facility] [address] [id number] [place] [address]- 2533 Jun, [facility] [place] [facility] [address] [id number] [place] [address]- 1613 15 Jun, 2013 [facility] [place] [facility] [address] [id number] [place] [address]- 5037 Jun, [facility] [place] [facility] [address] [id number] [place] [address]- 9701 Jun, [facility] [place] [facility] [address] [id number] [place] [address]- 4225 Jun, [facility] [place] [facility] [address] [id number] [place] [address]- 8233 14 Jun, 2013 [facility] [address] [id number] [place] [address]- 5021 May, [facility] [place] [facility] [address] [id number] [place] [address]- 4212 20 May, 2013 [facility] [place] [facility] [address] [id number] [place] [address]- 2214 Apr, [facility] [place] [facility] [address] [id number] [place] [address]- 7581 20 Apr, 2013 [facility] [place] [facility] [address] [id number] [place] [address]- 1783 15 Apr, 2013 [facility] [place] [facility] [address] [id number] [place] [address]- 7091 Apr, [facility] [place] [facility] [address] [id number] [place] [address]- 8653 Apr, [facility] [place] [facility] [address] [id number] [place] [address]- 6480 Mar, [facility] [place] [facility] [address] [id number] [place] [address]- 6094 Mar, [facility] [place] [facility] [address] [id number] [place] [address]- 7249 Mar, [facility] [place] [facility] [address] [id number] [place] [address]- 7323 Mar, [facility] [place] [facility] [address] [id number], [place] [address]- 6140 Feb, [facility] [place] [facility] [address] [id number] [place] [address]- 1294 Jan, [facility] [place] [facility] [address] [id number] [place] [address]- 1507 Dec, [facility] [place] [facility] [address] [id number] [place] [address]- 6557 Dec, [facility] [place] [facility] [address] [id number] [place] [address] 2542 Dec, [facility] [address] [id number] [place] [address]- 2255 Dec, [facility] [address] [id number] [place] [address]- 2546 Nov, [facility] [address] [id number] [place] [address]- 7476 October, [facility] [address] [id number] [place] [address]- 8176 October, [facility] [address] [id number] [place] [address]- 0099 October, [facility] [address] [id number] [place] [address]- 8971 October, [facility] [address] [id number] [place] [address]- 9595 October, [facility] [address] [id number] [place] [address]- 3852 October, [facility] [address] [id number] [place] [address]- 9416 October, [facility] [address] [id number] [place] [address]- 2797 October, [facility] [address] [id number] [place] [address]- 9815 Sep, [facility] [place] [facility] [address] [id number] [place] [address]- 2549 Sep, [facility] [place] [facility] [address] [id number] [place] [address]- 4526 Sep, [facility] [place] [facility] [address] [id number] [place] [address]- 254 Aug, [facility] [place] [facility] [address] [id number] [place] [address]- 1553 Aug, 2012 [facility] [place] [facility] [address] [id number] [place] [address]- 1131 28 Aug, 2012 [facility] [place] [facility] [address] [id number] [place] 2176 27 Aug, 2012 [facility] [place] [facility] [address] [id number] [place] [address]- 1706 14 Aug, 2012 [facility] [place] [facility] [address] [id number] [place] [address]- 6630 05 Aug, 2012 [facility] [place] [facility] [address] [id number] [place] [address]- 9247 Jul, [facility] [place] [facility] [address] [id number] [place] 8558 Jun, [facility] [place] [facility] [address] [id number] [place] [address]- 1285 24 Mar, 2012 [facility] [place] [facility] [address] [id number] [place] [address]- 7447 24 Mar, 2012 [facility] [place] [facility] [address] [id number] [place] [address]- 6967 Mar, [facility] [place] [facility] [address] [id number] [place] [address]- 1605 Mar, [facility] [place] [facility] [address] [id number], [place] [address]- 1393 18 Mar, 2012 [facility] [place] [facility] [address] [id number], [place] [address]- 254 25 Feb, 2012 [facility] [place] [facility] [address] [id number] [place] [address] 24 Feb, 2012 [facility] [place] [facility] [address] [id number] [place] [address] 20 Feb, 2012 [facility] [place] [facility] [address] [id number] [place] [address]46 04 Feb, 2012 [facility] [place] [facility] [address] [id number] [place] [address] 04 Feb, 2012 [facility] [address] [id number] [place] [address] Jan, [facility] [address] [id number] [place] [address] Nov, [facility] [address] [id number] [place] [address] Nov, [facility] [address] [id number] [place] [address] Nov, [facility] [address] [id number] [place] [address] Sep, [facility] [address] [id number] [place] [address] Sep, [facility] [address] [id number] [place] [address] Sep, [facility] [address] [id number] [place] [address] Aug, [facility] [address] [id number] [place] [address] Aug, [facility] [address] [id number] [place] [address] Jul, [facility] [address] [id number] [place] [address] Jul, [facility] [address] [id number] [place] [address] Jun, [facility] [address] [id number] [place] [address] Jun, [facility] [address] [id number] [place] [address] May, [facility] [address] [id number] [place] [address] May, [facility] [address] [id number] [place] [address] May, [facility] [place] [facility] [address] [id number] [place] [address] 14 May, 2011 [facility] [place] [facility] [address] [id number] [id number] [address] 14 May, 2011 [facility] [place] [facility] [address] [id number] [place] [address] Apr, [facility] [place] [facility] [address] [id number] [place] [address] Aug, [facility] [place] [facility] [address] [id number] [place] [address] 18 Jul, 2010 [facility] [place] [facility] [address] [id number] [place] [address] Apr, [facility] [place] [facility] [address] [id number] [place] [address] 18 Apr, 2010 [facility] [place] [facility] [address] [id number] [place] [address] Apr, [facility] [place] [facility] [address] [id number] [place] [address] 14 Mar, 2010 [facility] [place] [facility] [address] [id number] [place] [address] Jan, [facility] [place] [facility] [address] [id number] [place] [address] 16 Sep, 2009 [facility] [place] [facility] [address] [id number] [place] [address] Jun, [facility] [place] [facility] [address] [id number] [place] [address] 29 May, 2009 [facility] [place] [facility] [address] [id number] [place] [address] 07 May, 2009 [facility] [place] [facility] [address] [id number], [place] [address] May, [facility] [address] [facility] [id number], [place] [address] Mar, [facility] [address] [facility] [id number], [place] [address] Feb, [facility] [address] [facility] [id number], [place] [address] Nov, [facility] [address] [facility] [id number], [place] [address] Aug, IMMUNIZATIONS Vaccine Route Administration Date Status FLULAVAL QUAD 0.5ML (6 MO & UP) 2018 IM Intramuscular Apr 05, 2018 Administered SOCIAL HISTORY Never Assessed REASON FOR VISIT Flu shot PLAN OF CARE VITAL SIGNS MEDICATIONS Unknown Medications RESULTS No Results PROCEDURES Procedure Date Ordered Result Body Site FLULAVAL QUAD 0.5ML (6 MO AND UP) 2018 Apr 05, 2018 SINGLE IMMUNIZATION ADMIN Apr 05, 2018 INSTRUCTIONS MEDICATIONS ADMINISTERED No Known Medications MEDICAL (GENERAL) HISTORY Type Description Date Medical History DM Medical History Cholecystectomy Medical History Breast Cancer 04/2012 Surgical History post cholecystectomy Surgical History Hysterectomy Surgical History Masectomy Surgical History section x 3 Surgical History carpal tunnel release bilateral Surgical History bilateral trigger finger release Hospitalization History DKA at in [place] September 2016
--- OUTSIDE RECORDS SUMMARY | 2018-06-01 16:22 | XMS REPORT ---
Author Author EUGENIO BELTRAN Organization [facility] Address [address] [place] [address] Care Team Providers Care Client Manager Large Law Name Role Phone EUGENIO BELTRAN Unavailable PROBLEMS Type Condition ICD9-CM Code PQC60-FV Code Onset Dates Condition Status SNOMED Code Problem Primary osteoarthritis involving multiple joints M15.0 Active 937029527 Problem Rheumatoid arthritis involving multiple sites with positive rheumatoid factor M05.79 Active 236809917 Problem Dysthymia F34.1 Active 19419378 Problem Diabetes E11.9 Active 66568878 Problem Hypothyroid E03.9 Active 13667830 Problem Rheumatoid arthritis M06.9 Active 55725193 Problem History of breast cancer Z85.3 Active [id number] ALLERGIES No Information ENCOUNTERS Encounter Location Date Diagnosis [place] [id number] [place] [address]61- 1944 Jan, Diabetes E11.9 ; Hypothyroid E03.9 ; Dysthymia F34.1 and History of breast cancer Z85.3 [facility] [address] [place] [address] 68284- 1192 Dec, [facility] [id number] [place] [address] 81505- 2729 Sep, Diabetes E11.9 [facility] [address] [place] [address] 28746- 3382 Aug, [facility] [id number] [place] [address] 54488- 9214 Jul, [facility] [id number] [place] [address] 31845- 6588 Jul, [facility] [id number] [place] [address] 26165- 8885 Jul, [facility] [id number] [place] [address] 99205- 1451 Jul, Diabetes E11.9 and Dysthymia F34.1 [facility] [id number] [place] [address] 36779- 6736 Jul, [facility] [id number] [place] [address] 50415- 6918 Jun, Callus L84 and Diabetes E11.9 [facility] [id number] [place] [address] 83796- 4744 May, [facility] [address] [address]397- 5525 Apr, [facility] [id number] [place] [address] 04055- 7563 Apr, [facility] [id number] [place] [address] 32673- 7178 Apr, Diabetes E11.9 ; Hypothyroid E03.9 ; Dysthymia F34.1 ; Tobacco abuse Z72.0 ; Colon cancer screening Z12.11 and Encounter for immunization Z23 [facility] [id number] [place] [address] 56483- 1713 Dec, [facility] [id number] [place] [address] 18787- 8920 Dec, [facility] [id number] [place] [address] 66536- 9953 Dec, Hypothyroid E03.9 and Diabetes E11.9 [facility] [id number] [place] [address] 51792- 5652 Nov, [facility] [id number] [place] [address] 56141- 3605 Nov, [facility] [id number] [place] [address] 27503- 3798 Nov, [facility] [address] [address] 1899 Nov, Hypothyroid E03.9 [facility] [address] [place] [address] 95013- 1099 October, Hypothyroid E03.9 [facility] [address] [address]- 5505 October, Diabetes E11.9 [facility] [address] [place] [address] 72772- 0509 Aug, Hypothyroid E03.9 [facility] [address] [place] [address] 57491- 6008 Aug, Hypothyroid E03.9 [facility] [address] [address]- 9870 Apr, Hypothyroid E03.9 [facility] [id number] [place] [address] 00390- 3577 Apr, Diabetes E11.9 and Hypothyroid E03.9 [facility] [address] [address]- 9800 Mar, Encounter for immunization Z23 [facility] [address] [address]- 8051 Feb, Diabetes E11.9 [facility] [address] [address]- 0109 Jan, [facility] [address] [address]- 9949 Jan, [facility] [address] [address]- 8831 Jan, Diabetes E11.9 [facility] [address] [address]- 5295 Dec, Trigger middle finger of right hand M65.331 ; Trigger finger of right thumb M65.311 ; Trigger finger of left thumb M65.312 and Trigger ring finger of left hand M65.342 [facility] [id number] [place] [address]- 5268 Dec, [facility] [address] [place] [address]- 3586 Dec, Hypothyroid E03.9 [facility] [id number] [place] [address]- 8340 Nov, [facility] [id number] [place] [address]- 9404 October, [facility] [address] [place] [address]- 1966 October, Hypothyroid E03.9 [facility] [address] [place] [address]- 1165 October, [facility] [id number] [place] [address]- 0826 Sep, Hypothyroid E03.9 and Diabetes E11.9 [facility] [id number] [place] [address]- 7899 Sep, Diabetes E11.9 and Hypothyroid E03.9 [facility] [address] [place] [address]- 8086 Sep, [facility] [address] [address]- 3849 Aug, [facility] [id number] [address]- 1493 Aug, [facility] [id number] [place] [address]- 4311 Aug, [facility] [id number] [address]- 0071 Aug, [facility] [id number] [place] [address]- 8427 Aug, [facility] [address], [place] [address]- 8318 Jul, [facility] [address], [place] [address]- 1243 Jun, [facility] [address], [place] [address]- 8083 Jun, Rheumatoid arthritis involving multiple sites with positive rheumatoid factor M05.79 [facility] [address] [place] [address] 71178- 3400 Jun, [facility] [address] [place] [address] 77710- 3364 May, [facility] [id number] [place] [address] 49258- 8086 May, Rheumatoid arthritis involving multiple sites with positive rheumatoid factor M05.79 [place] [id number] [place] [address] 56770- 9786 May, [facility] [address] [address]- 7982 May, Rheumatoid arthritis involving multiple sites with positive rheumatoid factor M05.79 [facility] [address] [place] [address] 18559- 5521 Apr, Diabetes E11.9 ; Long-term insulin use Z79.4 ; Insulin pump in place Z96.41 ; Arthralgia of hand, unspecified laterality M79.643 and History of breast cancer Z85.3 [facility] [address], [place] [address]- 5870 Apr, [facility] [address] [place] [address] 66270- 4606 Mar, [facility] [address] [address]- 6464 Mar, [facility] [address], [place] [address]- 0954 Feb, UTI (urinary tract infection) 599.0 [facility] [place] [facility] [address] [id number], [place] [address]- 8219 28 Feb, 2015 UTI (urinary tract infection) 599.0 [facility] [place] [facility] [address] [id number], [place] [address]- 9816 28 Feb, 2015 UTI (urinary tract infection) 599.0 [facility] [place] [facility] [address] [id number], [place] [address]- 6966 28 Feb, 2015 UTI (urinary tract infection) 599.0 [facility] [place] [facility] [address] [id number], [place] [address]- 7338 22 Feb, 2015 [facility] [address] [id number], [place] [address]- 8806 17 Feb, 2015 [facility] [address] [id number], [place] [address]- 9334 15 Feb, 2015 [facility] [address] [id number], [place] [address]- 8669 14 Feb, 2015 [facility] [address] [id number], [place] [address]- 2779 11 Nov, 2014 Trigger finger of right hand 727.03 [facility] [address] [id number], [place] [address]- 4424 14 Sep, 2014 [facility] [place] [facility] [address] [id number], [place] [address]- 3414 13 Sep, 2014 [facility] [place] [facility] [address] [id number], [place] [address]- 3827 Aug, [facility] [place] [facility] [address] [id number], [place] [address]- 3169 Aug, [facility] [place] [facility] [address] [id number], [place] [address]- 7736 Aug, [facility] [place] [facility] [address] [id number], [place] [address]- 1816 Aug, [facility] [address] [id number] [place] [address]- 6864 24 Jul, 2014 [facility] [place] [facility] [address] [id number] [place] [address]- 1860 Jul, 2014 [facility] [place] [facility] [address] [id number] [place] [address]- 0646 20 Jul, 2014 [facility] [place] [facility] [address] [id number] [place] 8047 20 Jul, 2014 [facility] [place] [facility] [address] [id number] [place] [address]- 7795 14 Jun, 2014 [facility] [place] [facility] [address] [id number] [place] [address]- 5642 14 Jun, 2014 [facility] [place] [facility] [address] [id number] [place] [address]- 8790 18 May, 2014 [facility] [place] [facility] [address] [id number] [place] [address]- 1756 18 May, 2014 [facility] [place] [facility] [address] [id number] [place] [address]- 5196 18 May, 2014 [facility] [place] [facility] [address] [id number] [place] [address]- 6119 18 May, 2014 [facility] [place] [facility] [address] [id number] [place] [address]- 0757 12 Apr, 2014 [facility] [place] [facility] [address] [id number] [place] [address]- 6810 12 Apr, 2014 [facility] [place] [facility] [address] [id number] [place] [address]- 4511 14 Mar, 2014 [facility] [place] [facility] [address] [id number] [place] [address]- 7246 14 Mar, 2014 [facility] [place] [facility] [address] [id number] [place] [address]- 8339 14 Mar, 2014 [facility] [place] [facility] [address] [id number] [place] [address]- 3832 14 Mar, 2014 [facility] [place] [facility] [address] [id number] [place] [address]- 4641 09 Mar, 2014 [facility] [place] [facility] [address] [id number] [place] [address]- 2010 09 Mar, 2014 [facility] [place] [facility] [address] [id number] [place] [address]- 4730 Mar, [facility] [place] [facility] [address] [id number] [place] [address]- 7320 Mar, [facility] [place] [facility] [address] [id number] [place] [address]- 4103 25 Sep, 2013 [facility] [place] [facility] [address] [id number] [place] [address]- 3889 25 Feb, 2013 [facility] [place] [facility] [address] [id number] [place] [address]- 3428 18 Sep, 2013 [facility] [place] [facility] [address] [id number] [place] [address]- 4382 18 Sep, 2013 [facility] [place] [facility] [address] [id number] [place] [address]- 7605 10 Sep, 2013 [facility] [place] [facility] [address] [id number] [place] [address]- 5219 10 Sep, 2013 [facility] [place] [facility] [address] [id number], [place] [address]- 5506 05 Sep, 2013 [facility] [place] [facility] [address] [id number], [place] [address]- 1774 05 Sep, 2013 [facility] [place] [facility] [address] [id number] [place] [address]- 3995 05 Sep, 2013 [facility] [place] [facility] [address] [id number], [place] [address]- 7852 05 Sep, 2013 [facility] [place] [facility] [address] [id number], [place] [address]- 3568 03 Sep, 2013 [facility] [place] [facility] [address] [id number] [place] [address]- 9066 Feb, [facility] [place] [facility] [address] [id number] [place] [address]- 9924 Jan, [facility] [place] [facility] [address] [id number] [place] [address]- 7844 Jan, [facility] [place] [facility] [address] [id number] [place] [address]- 3808 Jan, [facility] [place] [facility] [address] [id number] [place] [address]- 3648 Jan, [facility] [place] [facility] [address] [id number] [place] [address]- 6885 Dec, [facility] [place] [facility] [address] [id number] [place] [address]- 5684 Dec, [facility] [place] [facility] [address] [id number] [place] [address]- 9591 Dec, [facility] [place] [facility] [address] [id number] [place] [address]- 8903 Dec, [facility] [place] [facility] [address] [id number] [place] [address]- 2269 Dec, [facility] [place] [facility] [address] [id number] [place] [address]- 2805 Dec, [facility] [place] [facility] [address] [id number] [place] [address]- 5229 Dec, [facility] [place] [facility] [address] [id number] [place] [address]- 2442 Dec, [facility] [place] [facility] [address] [id number] [place] [address]- 1556 Dec, [facility] [place] [facility] [address] [id number] [place] [address]- 0471 Dec, [facility] [place] [facility] [address] [id number] [place] [address]- 1306 Dec, [facility] [place] [facility] [address] [id number] [place] [address]- 1200 Dec, [facility] [place] [facility] [address] [id number] [place] [address]- 5108 October, [facility] [place] [facility] [address] [id number] [place] [address]- 2141 October, [facility] [place] [facility] [address] [id number] [place] [address]- 5831 Aug, [facility] [place] [facility] [address] [id number] [place] [address]- 0750 Aug, [facility] [place] [facility] [address] [id number] [place] [address]- 4978 Aug, [facility] [place] [facility] [address] [id number] [place] [address]- 6783 Aug, [facility] [place] [facility] [address] [id number] [place] [address]- 7873 Jun, [facility] [place] [facility] [address] [id number] [place] [address]- 7344 Jun, [facility] [place] [facility] [address] [id number] [place] [address]- 3585 Jun, [facility] [place] [facility] [address] [id number] [place] [address]- 6934 Jun, [facility] [place] [facility] [address] [id number] [place] [address]- 5958 Jun, [facility] [place] [facility] [address] [id number] [place] [address]- 6215 Jun, [facility] [place] [facility] [address] [id number] [place] [address]- 2990 Jun, [facility] [place] [facility] [address] [id number] [place] [address]- 4770 Jun, [facility] [place] [facility] [address] [id number] [place] [address]- 6711 May, [facility] [place] [facility] [address] [id number] [place] [address]- 5539 May, [facility] [place] [facility] [address] [id number] [place] [address]- 0704 Apr, [facility] [place] [facility] [address] [id number] [place] [address]- 8442 Apr, [facility] [place] [facility] [address] [id number] [place] [address]- 0983 15 Apr, 2013 [facility] [place] [facility] [address] [id number] [place] [address]- 6756 Apr, [facility] [place] [facility] [address] [id number] [place] [address]- 0421 Apr, [facility] [place] [facility] [address] [id number] [place] [address]- 7128 Mar, [facility] [place] [facility] [address] [id number] [place] [address]- 3052 Mar, [facility] [place] [facility] [address] [id number] [place] [address]- 6252 Mar, [facility] [place] [facility] [address] [id number] [place] [address]- 7494 Mar, [facility] [place] [facility] [address] [id number] [place] [address]- 7024 Feb, [facility] [place] [facility] [address] [id number] [place] [address]- 4947 Jan, [facility] [place] [facility] [address] [id number] [place] [address]- 3970 Dec, [facility] [place] [facility] [address] [id number] [place] [address]- 3605 Dec, [facility] [place] [facility] [address] [id number] [place] [address]- 0977 Dec, [facility] [place] [facility] [address] [id number] [place] [address]- 2546 Dec, [facility] [address] [id number] [place] [address]- 8463 Nov, [facility] [address] [id number] [place] [address]- 2546 October, [facility] [place] [facility] [address] [id number] [place] [address]- 6066 October, [facility] [address] [id number] [place] [address]- 0306 October, [facility] [address] [id number] [place] [address]- 0786 October, [facility] [address] [id number] [place] [address]- 5356 October, [facility] [place] [facility] [address] [id number] [place] [address]- 7186 October, [facility] [place] [facility] [address] [id number] [place] [address]- 3859 October, [facility] [address] [id number] [place] [address]- 6256 October, [facility] [address] [id number] [place] [address]- 1946 Sep, [facility] [address] [id number] [place] [address]- 2546 Sep, [facility] [address] [id number] [place] [address]- 2546 Sep, [facility] [address] [id number] [place] [address]- 2546 Aug, [facility] [address] [id number] [place] [address]- 2546 Aug, [facility] [address] [id number] [place] [address]- 2735 Aug, [facility] [place] [facility] [address] [id number] [place] [address]- 1189 27 Aug, 2012 [facility] [place] [facility] [address] [id number] [place] [address]- 9196 14 Aug, 2012 [facility] [place] [facility] [address] [id number] [place] [address]- 7264 05 Aug, 2012 [facility] [place] [facility] [address] [id number] [place] [address]- 4394 Jul, [facility] [place] [facility] [address] [id number] [place] [address]- 6328 Jun, [facility] [place] [facility] [address] [id number] [place] [address]- 0749 Mar, [facility] [place] [facility] [address] [id number] [place] [address]- 3584 Mar, [facility] [place] [facility] [address] [id number] [place] [address]- 6819 Mar, [facility] [place] [facility] [address] [id number] [place] [address]- 7563 Mar, [facility] [place] [facility] [address] [id number] [place] [address] Mar, [facility] [place] [facility] [address] [id number] [place] [address] 25 Feb, 2012 [facility] [place] [facility] [address] [id number] [place] [address] 24 Feb, 2012 [facility] [place] [facility] [address] [id number] [place] [address] 20 Feb, 2012 [facility] [place] [facility] [address] [id number] [place] [address] 04 Feb, 2012 [facility] [place] [facility] [address] [id number] [place] [address] 04 Feb, 2012 [facility] [place] [facility] [address] [id number] [place] [address] 30 Jan, 2012 [facility] [address] [id number] [place] [address] 07 Nov, 2011 [facility] [place] [facility] [address] [id number] [place] [address] 06 Nov, 2011 [facility] [address] [id number] [place] [address] 05 Nov, 2011 [facility] [place] [facility] [address] [id number] [place] [address] 30 Sep, 2011 [facility] [address] [id number] [place] [address] Sep, [facility] [place] [facility] [address] [id number] [place] [address] Sep, [facility] [address] [id number] [place] [address] Aug, [facility] [place] [facility] [address] [id number] [place] [address] Aug, [facility] [address] [id number] [place] [address] Jul, [facility] [address] [id number] [place] [address] Jul, [facility] [address] [id number] [place] [address] Jun, [facility] [place] [facility] [address] [id number] [place] [address] Jun, [facility] [place] [facility] [address] [id number] [place] [address] May, [facility] [place] [facility] [address] [id number] [place] [address] May, [facility] [place] [facility] [address] [id number] [place] [address] May, [facility] [place] [facility] [address] [id number] [place] [address] 14 May, 2011 [facility] [address] [id number] [place] [address] 14 May, 2011 [facility] [place] [facility] [address] [id number] [place] [address] 23 Apr, 2011 [facility] [address] [id number] [place] [address] Aug, [facility] [address] [id number] [place] [address] Jul, [facility] [place] [facility] [address] [id number] [place] [address] Apr, [facility] [address] [id number] [place] [address] Apr, [facility] [address] [id number] [place] [address] Apr, [facility] [address] [id number] [place] [address] Mar, [facility] [address] [id number] [place] [address] Jan, [facility] [place] [facility] [address] [id number] [place] [address] 16 Sep, 2009 [facility] [place] [facility] [address] [id number] [place] [address] Jun, [facility] [place] [facility] [address] [id number] [place] [address] May, [facility] [place] [facility] [address] [id number] [place] [address] May, [facility] [place] [facility] [address] [id number] [place] [address] May, [facility] [place] [facility] [address] [id number] [place] [address] Mar, [facility] [address] [facility] [id number] [place] [address] Feb, [facility] [address] [facility] [id number], [place] [address] Nov, [facility] [address] [facility] [id number] [place] [address] Aug, IMMUNIZATIONS No Known Immunizations SOCIAL HISTORY Never Assessed REASON FOR VISIT Ipro start PLAN OF CARE VITAL SIGNS MEDICATIONS No Known Medications RESULTS No Results PROCEDURES No Known procedures INSTRUCTIONS MEDICATIONS ADMINISTERED No Known Medications MEDICAL (GENERAL) HISTORY Type Description Date Medical History DM Medical History Cholecystectomy Medical History Breast Cancer 04/2012 Surgical History post cholecystectomy Surgical History Hysterectomy Surgical History Masectomy Surgical History section x 3 Surgical History carpal tunnel release bilateral Surgical History bilateral trigger finger release Hospitalization History DKA at in [place] September 2016
--- OUTSIDE RECORDS SUMMARY | 2018-06-01 16:23 | XMS REPORT ---
Author Author EUGEINO BELTRAN Organization [facility] Address [address] [place] [address] Care Team Providers Care Checker Cashier Name Role Phone EUGENIO BELTRAN Unavailable PROBLEMS Type Condition ICD9-CM Code [id number] Code Onset Dates Condition Status SNOMED Code Problem Primary osteoarthritis involving multiple joints M15.0 Active 851403229 Problem Rheumatoid arthritis involving multiple sites with positive rheumatoid factor M05.79 Active 935780843 Problem Dysthymia F34.1 Active 95498655 Problem Diabetes E11.9 Active 52179884 Problem Hypothyroid E03.9 Active 16875578 Problem Rheumatoid arthritis M06.9 Active 78520781 Problem History of breast cancer Z85.3 Active [id number] ALLERGIES No Information ENCOUNTERS Encounter Location Date Diagnosis [address] [id number] [place] [address] 10280- 3417 Jan, Diabetes E11.9 ; Hypothyroid E03.9 ; Dysthymia F34.1 and History of breast cancer Z85.3 [facility] [id number] [place] [address] 89714- 6529 Dec, [facility] [id number] [place] [address] 95664- 7377 Sep, Diabetes E11.9 [facility] [id number] [place] [address] 99172- 2837 Aug, [facility] [id number] [place] [address] 56320- 3790 Jul, [facility] [id number] [place] [address] 08118- 3207 Jul, [facility] [id number] [place] [address] 59035- 3170 Jul, [facility] [id number] [place] [address] 63108- 6479 Jul, Diabetes E11.9 and Dysthymia F34.1 [facility] [id number] [place] [address] 55039- 5653 Jul, [facility] [id number] [place] [address] 66583- 5226 Jun, Callus L84 and Diabetes E11.9 [facility] [id number] [place] [address] 28449- 8021 May, [facility] [address] [address]- 0293 Apr, [facility] [id number] [place] [address] 84664- 9656 Apr, [facility] [id number] [place] [address] 62184- 4701 Apr, Diabetes E11.9 ; Hypothyroid E03.9 ; Dysthymia F34.1 ; Tobacco abuse Z72.0 ; Colon cancer screening Z12.11 and Encounter for immunization Z23 [facility] [id number] [place] [address] 23491- 8555 Dec, [facility] [id number] [place] [address] 66304- 8200 Dec, [facility] [id number] [place] [address] 22227- 3567 Dec, Hypothyroid E03.9 and Diabetes E11.9 [facility] [id number] [place] [address] 08734- 9107 Nov, [facility] [id number] [place] [address] 50373- 1417 Nov, [facility] [id number] [place] [address] 03948- 1850 Nov, [facility] [address] [address]- 2533 Nov, Hypothyroid E03.9 [facility] [id number] [place] [address] 02556- 6204 October, Hypothyroid E03.9 [facility] [address] [address]- 8601 October, Diabetes E11.9 [facility] [id number] [place] [address] 81308- 4986 Aug, Hypothyroid E03.9 [facility] [id number] [place] [address] 68313- 3694 Aug, Hypothyroid E03.9 [facility] [address] [address]- 3053 Apr, Hypothyroid E03.9 [facility] [id number] [place] [address] 37511- 2967 Apr, Diabetes E11.9 and Hypothyroid E03.9 [facility] [address] [address]- 4134 Mar, Encounter for immunization Z23 [facility] [address] [address]- 0749 Feb, Diabetes E11.9 [facility] [address] [address]- 2465 Jan, [facility] [address], [place] [address]- 8367 Jan, [facility] [address] [address]- 3234 Jan, Diabetes E11.9 [facility] [address] [address]- 1790 Dec, Trigger middle finger of right hand M65.331 ; Trigger finger of right thumb M65.311 ; Trigger finger of left thumb M65.312 and Trigger ring finger of left hand M65.342 [facility] [id number] [address]- 8640 Dec, [facility] [address] [address]- 7676 Dec, Hypothyroid E03.9 [facility] [id number] [address]- 0436 Nov, [facility] [id number] [address]- 7658 October, [facility] [address] [address]- 5113 October, Hypothyroid E03.9 [facility] [address] [address]- 0332 October, [facility] [id number] [address]- 9320 Sep, Hypothyroid E03.9 and Diabetes E11.9 [facility] [id number] [address]- 6513 Sep, Diabetes E11.9 and Hypothyroid E03.9 [facility] [address] [address]- 8042 Sep, [facility] [address], [place] [address]- 2945 Aug, [facility] [id number] [address]- 5257 Aug, [facility] [id number] [address]- 8504 Aug, [facility] [id number] [address]- 5585 Aug, [facility] [id number] [address]- 4080 Aug, [facility] [address], [place] [address]- 6938 Jul, [facility] [address], [place] [address]- 1009 Jun, [facility] [address], [place] [address]- 4157 Jun, Rheumatoid arthritis involving multiple sites with positive rheumatoid factor M05.79 [facility] [id number] [place] [address] 16034- 5037 Jun, [facility] [id number] [place] [address] 97668- 5730 May, [facility] [id number] [place] [address] 76183- 2027 May, Rheumatoid arthritis involving multiple sites with positive rheumatoid factor M05.79 [place] [id number] [place] [address] 35566- 2676 May, [facility] [address], [place] [address]- 5460 May, Rheumatoid arthritis involving multiple sites with positive rheumatoid factor M05.79 [facility] [id number] [place] [address] 47887- 5260 Apr, Diabetes E11.9 ; Long-term insulin use Z79.4 ; Insulin pump in place Z96.41 ; Arthralgia of hand, unspecified laterality M79.643 and History of breast cancer Z85.3 [facility] [address], [place] [address]- 6187 Apr, [facility] [id number] [place] [address] 28252- 3988 Mar, [facility] [address], [place] [address]- 8395 Mar, [facility] [address], [place] [address]- 8825 Feb, UTI (urinary tract infection) 599.0 [facility] [address] [id number], [place] [address]- 5423 28 Feb, 2015 UTI (urinary tract infection) 599.0 [facility] [address] [id number], [place] [address]- 9706 28 Feb, 2015 UTI (urinary tract infection) 599.0 [facility] [address] [id number], [place] [address]- 5446 28 Feb, 2015 UTI (urinary tract infection) 599.0 [facility] [address] [id number], [place] [address]- 2434 22 Feb, 2015 [facility] [address] [id number], [place] [address]- 5686 17 Feb, 2015 [facility] [address] [id number], [place] [address]- 5870 15 Feb, 2015 [facility] [address] [id number], [place] [address]- 6034 14 Feb, 2015 [facility] [address] [id number], [place] [address]- 7269 11 Nov, 2014 Trigger finger of right hand 727.03 [facility] [address] [id number], [place] [address]- 1646 14 Sep, 2014 [facility] [address] [id number], [place] [address]- 8823 13 Sep, 2014 [facility] [address] [id number], [place] [address]- 4273 Aug, [facility] [address] [id number], [place] [address]- 0511 Aug, [facility] [address] [id number], [place] [address]- 4550 Aug, [facility] [address] [id number], [place] [address]- 0476 Aug, [facility] [address] [id number] [place] [address]- 5275 24 Jul, 2014 [facility] [place] [facility] [address] [id number] [place] [address]- 9653 Jul, 2014 [facility] [place] [facility] [address] [id number] [place] [address]- 0561 20 Jul, 2014 [facility] [place] [facility] [address] [id number] [place] 1525 20 Jul, 2014 [facility] [place] [facility] [address] [id number] [place] [address]- 9715 14 Jun, 2014 [facility] [place] [facility] [address] [id number] [place] [address]- 4779 14 Jun, 2014 [facility] [place] [facility] [address] [id number] [place] [address]- 9625 18 May, 2014 [facility] [place] [facility] [address] [id number] [place] [address]- 6558 18 May, 2014 [facility] [place] [facility] [address] [id number] [place] [address]- 2739 18 May, 2014 [facility] [place] [facility] [address] [id number] [place] [address]- 8190 18 May, 2014 [facility] [place] [facility] [address] [id number] [place] [address]- 9056 12 Apr, 2014 [facility] [place] [facility] [address] [id number] [place] [address]- 5813 12 Apr, 2014 [facility] [place] [facility] [address] [id number] [place] [address]- 5051 14 Mar, 2014 [facility] [place] [facility] [address] [id number] [place] [address]- 4642 14 Mar, 2014 [facility] [place] [facility] [address] [id number] [place] [address]- 1188 14 Mar, 2014 [facility] [place] [facility] [address] [id number] [place] [address]- 7799 14 Mar, 2014 [facility] [place] [facility] [address] [id number] [place] [address]- 7354 09 Mar, 2014 [facility] [place] [facility] [address] [id number] [place] [address]- 9902 09 Mar, 2014 [facility] [place] [facility] [address] [id number] [place] [address]- 2150 Mar, [facility] [place] [facility] [address] [id number] [place] [address]- 7307 Mar, [facility] [place] [facility] [address] [id number] [place] [address]- 4069 25 Sep, 2013 [facility] [place] [facility] [address] [id number] [place] [address]- 0646 25 Feb, 2013 [facility] [place] [facility] [address] [id number] [place] [address]- 7955 18 Sep, 2013 [facility] [place] [facility] [address] [id number] [place] [address]- 8190 18 Sep, 2013 [facility] [place] [facility] [address] [id number] [place] [address]- 2284 10 Sep, 2013 [facility] [place] [facility] [address] [id number] [place] [address]- 4927 10 Sep, 2013 [facility] [place] [facility] [address] [id number], [place] [address]- 0370 05 Sep, 2013 [facility] [place] [facility] [address] [id number], [place] [address]- 2201 05 Sep, 2013 [facility] [place] [facility] [address] [id number] [place] [address]- 6437 05 Sep, 2013 [facility] [place] [facility] [address] [id number], [place] [address]- 8549 05 Sep, 2013 [facility] [place] [facility] [address] [id number], [place] [address]- 4618 03 Sep, 2013 [facility] [place] [facility] [address] [id number] [place] [address]- 6294 Feb, [facility] [place] [facility] [address] [id number] [place] [address]- 4014 Jan, [facility] [place] [facility] [address] [id number] [place] [address]- 9209 Jan, [facility] [place] [facility] [address] [id number] [place] [address]- 2046 Jan, [facility] [place] [facility] [address] [id number] [place] [address]- 8545 Jan, [facility] [place] [facility] [address] [id number] [place] [address]- 9052 Dec, [facility] [place] [facility] [address] [id number] [place] [address]- 5798 Dec, [facility] [place] [facility] [address] [id number] [place] [address]- 0914 Dec, [facility] [place] [facility] [address] [id number] [place] [address]- 2641 Dec, [facility] [place] [facility] [address] [id number] [place] [address]- 8212 Dec, [facility] [place] [facility] [address] [id number] [place] [address]- 0182 Dec, [facility] [place] [facility] [address] [id number] [place] [address]- 4544 Dec, [facility] [place] [facility] [address] [id number] [place] [address]- 6863 Dec, [facility] [place] [facility] [address] [id number] [place] [address]- 6478 Dec, [facility] [place] [facility] [address] [id number] [place] [address]- 4305 Dec, [facility] [place] [facility] [address] [id number] [place] [address]- 6461 Dec, [facility] [place] [facility] [address] [id number] [place] [address]- 5754 Dec, [facility] [place] [facility] [address] [id number] [place] [address]- 3404 October, [facility] [place] [facility] [address] [id number] [place] [address]- 7539 October, [facility] [place] [facility] [address] [id number] [place] [address]- 1072 Aug, [facility] [place] [facility] [address] [id number] [place] [address]- 5487 Aug, [facility] [place] [facility] [address] [id number] [place] [address]- 3343 Aug, [facility] [place] [facility] [address] [id number] [place] [address]- 2066 Aug, [facility] [place] [facility] [address] [id number] [place] [address]- 9161 Jun, [facility] [place] [facility] [address] [id number] [place] [address]- 3034 Jun, [facility] [place] [facility] [address] [id number] [place] [address]- 5366 Jun, [facility] [place] [facility] [address] [id number] [place] [address]- 4382 Jun, [facility] [place] [facility] [address] [id number] [place] [address]- 3554 Jun, [facility] [place] [facility] [address] [id number] [place] [address]- 4586 Jun, [facility] [place] [facility] [address] [id number] [place] [address]- 9377 Jun, [facility] [place] [facility] [address] [id number] [place] [address]- 6365 Jun, [facility] [place] [facility] [address] [id number] [place] [address]- 5696 May, [facility] [place] [facility] [address] [id number] [place] [address]- 7717 May, [facility] [place] [facility] [address] [id number] [place] [address]- 7148 Apr, [facility] [place] [facility] [address] [id number] [place] [address]- 4871 Apr, [facility] [place] [facility] [address] [id number] [place] [address]- 4286 15 Apr, 2013 [facility] [place] [facility] [address] [id number] [place] [address]- 0333 Apr, [facility] [place] [facility] [address] [id number] [place] [address]- 0009 Apr, [facility] [place] [facility] [address] [id number] [place] [address]- 2703 Mar, [facility] [place] [facility] [address] [id number] [place] [address]- 1413 Mar, [facility] [place] [facility] [address] [id number] [place] [address]- 6742 Mar, [facility] [place] [facility] [address] [id number] [place] [address]- 7930 Mar, [facility] [place] [facility] [address] [id number] [place] [address]- 5793 Feb, [facility] [place] [facility] [address] [id number] [place] [address]- 2779 Jan, [facility] [place] [facility] [address] [id number] [place] [address]- 0091 Dec, [facility] [place] [facility] [address] [id number] [place] [address]- 0524 Dec, [facility] [place] [facility] [address] [id number] [place] [address]- 1291 Dec, [facility] [place] [facility] [address] [id number] [place] [address]- 2546 Dec, [facility] [address] [id number] [place] [address]- 2268 Nov, [facility] [address] [id number] [place] [address]- 2546 October, [facility] [address] [id number] [place] [address]- 1446 October, [facility] [address] [id number] [place] [address]- 9641 October, [facility] [address] [id number] [place] [address]- 0986 October, [facility] [address] [id number] [place] [address]- 0786 October, [facility] [address] [id number] [place] [address]- 3206 October, [facility] [address] [id number] [place] [address]- 9534 October, [facility] [address] [id number] [place] [address]- 3256 October, [facility] [address] [id number] [place] [address]- 2656 Sep, [facility] [address] [id number] [place] [address]- 2546 Sep, [facility] [address] [id number] [place] [address]- 2546 Sep, [facility] [address] [id number] [place] [address]- 2546 Aug, [facility] [address] [id number] [place] [address]- 2546 Aug, [facility] [address] [id number] [place] [address]- 1861 Aug, [facility] [place] [facility] [address] [id number] [place] [address]- 5649 27 Aug, 2012 [facility] [place] [facility] [address] [id number] [place] [address]- 3093 14 Aug, 2012 [facility] [place] [facility] [address] [id number] [place] [address]- 9205 05 Aug, 2012 [facility] [place] [facility] [address] [id number] [place] [address]- 6524 Jul, [facility] [place] [facility] [address] [id number] [place] [address] Jun, [facility] [place] [facility] [address] [id number] [place] [address] Mar, [facility] [place] [facility] [address] [id number] [place] [address] Mar, [facility] [place] [facility] [address] [id number] [place] [address] Mar, [facility] [place] [facility] [address] [id number] [place] [address] Mar, [facility] [place] [facility] [address] [id number] [place] [address] Mar, [facility] [place] [facility] [address] [id number] [place] [address] 25 Feb, 2012 [facility] [place] [facility] [address] [id number] [place] [address] 24 Feb, 2012 [facility] [place] [facility] [address] [id number] [place] [address] 20 Feb, 2012 [facility] [place] [facility] [address] [id number] [place] [address] 04 Feb, 2012 [facility] [place] [facility] [address] [id number] [place] [address] 04 Feb, 2012 [facility] [place] [facility] [address] [id number] [place] [address] 30 Jan, 2012 [facility] [address] [id number] [place] [address] 07 Nov, 2011 [facility] [place] [facility] [address] [id number] [place] [address]- [address] 06 Nov, 2011 [facility] [address] [id number] [place] [address] 05 Nov, 2011 [facility] [place] [facility] [address] [id number] [place] [address] 30 Sep, 2011 [facility] [address] [id number] [place] [address] Sep, [facility] [place] [facility] [address] [id number] [place] [address] Sep, [facility] [address] [id number] [place] [address] Aug, [facility] [place] [facility] [address] [id number] [place] [address] Aug, [facility] [address] [id number] [place] [address] Jul, [facility] [address] [id number] [place] [address] Jul, [facility] [address] [id number] [place] [address] Jun, [facility] [place] [facility] [address] [id number] [place] [address] Jun, [facility] [place] [facility] [address] [id number] [place] [address] May, [facility] [place] [facility] [address] [id number] [place] [address] May, [facility] [place] [facility] [address] [id number] [place] [address] May, [facility] [place] [facility] [address] [id number] [place] [address]- [address] 14 May, 2011 [facility] [address] [id number] [place] [address] 14 May, 2011 [facility] [place] [facility] [address] [id number] [place] [address]- [address] 23 Apr, 2011 [facility] [address] [id number] [place] [address] Aug, [facility] [address] [id number] [place] [address]661 Jul, [facility] [place] [facility] [address] [id number] [place] [address] Apr, [facility] [address] [id number] [place] [address] Apr, [facility] [address] [id number] [place] [address] Apr, [facility] [address] [id number] [place] [address] Mar, [facility] [address] [id number] [place] [address] Jan, [facility] [place] [facility] [address] [id number] [place] [address] 16 Sep, 2009 [facility] [place] [facility] [address] [id number] [place] [address] Jun, [facility] [place] [facility] [address] [id number] [place] [address] May, [facility] [place] [facility] [address] [id number] [place] [address]- 8466 May, [facility] [place] [facility] [address] [id number] [place] [address]295 May, [facility] [place] [facility] [address] [id number] [place] [address] Mar, [facility] [address] [facility] [id number] [place] [address] Feb, [facility] [address] [facility] [id number], [place] [address] Nov, [facility] [address] [facility] [id number] [place] [address] Aug, IMMUNIZATIONS No Known Immunizations SOCIAL HISTORY Never Assessed REASON FOR VISIT [employer] upload info PLAN OF CARE VITAL SIGNS MEDICATIONS No [...] finger release Hospitalization History DKA at in [place] September 2016
--- OUTSIDE RECORDS SUMMARY | 2018-06-01 16:23 | XMS REPORT ---
Author Author EUGENIO BELTRAN Organization [facility] Address [address] [place] [address] Care Team Providers Care Seismic Prospecting Observer Helper Name Role Phone EUGENIO BELTRAN Unavailable PROBLEMS Type Condition ICD9-CM Code MWL99-XB Code Onset Dates Condition Status SNOMED Code Problem Dysthymia F34.1 Active 25926009 Problem Rheumatoid arthritis M06.9 Active 64693535 Problem Hypothyroid E03.9 Active 40446590 Problem Primary osteoarthritis involving multiple joints M15.0 Active 745690381 Problem History of breast cancer Z85.3 Active 501704448 Problem Diabetes E11.9 Active [id number] ALLERGIES No Information ENCOUNTERS Encounter Location Date Diagnosis [place] [id number] [place] [address]277- 3778 Jan, [facility] [id number] [place] [address] 30308- 0330 Dec, [facility] [id number] [place] [address] 21734- 9039 Sep, Diabetes E[address].9 [facility] [id number] [place] [address] 59355- 7024 Aug, [facility] [id number] [place] [address] 26677- 4060 Jul, [facility] [id number] [place] [address] 10316- 9218 Jul, [facility] [id number] [place] [address] 03552- 4028 Jul, [facility] [id number] [place] [address] 94893- 7709 Jul, Diabetes E11.[address] [facility] [address] [address] Jul, [facility] [id number] [place] [address] 17303- 0128 Jun, Callus L[address] [facility] [id number] [place] [address] 60402- 9984 May, [facility] [id number] [place] [address] 04801- 9067 Apr, [facility] [id number] [place] [address] 32712- 2724 Apr, [facility] [id number] [place] [address] 00593- 6189 Apr, Diabetes E11.9 ; Hypothyroid E03.9 ; Dysthymia F34.1 ; Tobacco abuse Z72.0 ; Colon cancer screening Z12.11 and Encounter for immunization Z23 [facility] [id number] [place] [address] 72299- 0640 Dec, [facility] [id number] [place] [address] 15893- 3890 Dec, [facility] [id number] [place] [address] 43104- 2745 Dec, Hypothyroid E03.[address] [facility] [id number] [place] [address] 05940- 9761 Nov, [facility] [id number] [place] [address] 74861- 9411 Nov, [facility] [id number] [place] [address] 98120- 1228 Nov, [facility] [id number] [place] [address] 53624- 9972 Nov, Hypothyroid E03.9 [facility] [id number] [address]- 5347 October, Hypothyroid E03.9 [facility] [id number] [place] [address] 75592- 6530 October, Diabetes E11.9 [facility] [id number] [place] [address] 54369- 4009 Aug, [address]roid E03.9 [facility] [id number] [place] [address] 05242- 8079 Aug, Hypothyroid E03.9 [facility] [id number] [place] [address] 28115- 8372 Apr, [address]roid E03.9 [facility] [id number] [place] [address] 74525- 2581 Apr, Diabetes E11.[address] [facility] [id number] [place] [address] 29099- 5218 Mar, Encounter for immunization Z23 [facility] [id number] [place] [address] 27731- 8818 Feb, Diabetes E11.9 [facility] [id number] [place] [address] 00672- 1043 Jan, [facility] [address], [place] [address]- 3686 Jan, [facility] [id number] [place] [address] 85090- 9914 Jan, Diabetes E11.9 [facility] [id number] [address]- 6220 Dec, Trigger middle finger of right hand M65.331 ; Trigger finger of right thumb M65.311 ; Trigger finger of left thumb M65.312 and Trigger ring finger of left hand M65.342 [facility] [address], [place] [address]- 6485 Dec, [facility] [address] [facility] [id number] [place] [address]- 7816 Dec, Hypothyroid E03.9 [facility] [address] [facility] [id number] [place] [address]- 0943 Nov, [facility] [address] [facility] [id number] [place] [address] October, [facility] [address] [facility] [id number] [place] [address]- 2905 October, Hypothyroid E03.9 [facility] [address] [facility] [id number] [place] 0[address] October, [facility] [address] [facility] [id number] [place] [address]- 3400 Sep, Hypothyroid E03.[address] [facility] [address] [facility] [id number] [place] [address]- 1007 Sep, Diabetes E11.[address] [facility] [id number] [place] [address]- [address]91 Sep, [facility] [id number] [address] 3713 Aug, [facility] [id number] [address] 6373 Aug, [facility] [address] [facility] [id number] [place] [address]- 2923 Aug, [facility] [address] [facility] [id number] [place] [address]- 5326 Aug, [facility] [address] [facility] [id number] [place] [address]04 Aug, [facility] [address] [facility] [id number] [place] [address]- 9716 Jul, [facility] [id number] [address]- 4936 Jun, [facility] [id number] 2355 Jun, Rheumatoid arthritis involving multiple sites with positive rheumatoid factor M05.79 [facility] [address] [facility] [id number], [place] [address]- 4526 Jun, [facility] [address] 2575 May, [facility] [address], [place] [address]- 6637 May, Rheumatoid arthritis involving multiple sites with positive rheumatoid factor M05.79 [facility] [id number] [place] [address] 54578- 4626 May, [facility] [address] 1626 May, Rheumatoid arthritis involving multiple sites with positive rheumatoid factor M05.79 [facility] [address], [place] [address]- 0592 Apr, Diabetes E11.9 ; Long-term insulin use Z79.4 ; Insulin pump in place Z96.41 ; Arthralgia of hand, unspecified laterality M79.643 and History of breast cancer Z85.3 [facility] [id number], [place] [address]- 0380 Apr, [facility] [id number] [address] 2873 Mar, [facility] [id number] 3813 Mar, [facility] [id number] 8370 Feb, UTI (urinary tract infection) 599.0 [facility] [id number] 8214 Feb, UTI (urinary tract infection) 599.0 [facility] [address] [id number], [place] [address]- 5134 28 Feb, 2015 UTI (urinary tract infection) 599.0 [facility] [address] [id number], [place] [address] 2546 28 Feb, 2015 UTI (urinary tract infection) 599.0 [facility] [address] [id number], [place] [address]- 1736 22 Feb, 2015 [facility] [address] [id number], [place] [address] 2542 17 Feb, 2015 [facility] [address] [id number], [place] [address]- 6532 15 Feb, 2015 [facility] [address] [id number], [place] [address]- 6661 14 Feb, 2015 [facility] [address] [facility] [id number], [place] [address]- 9554 11 Nov, 2014 Trigger finger of right hand 727.03 [facility] [address] [id number], [place] [address]- 8150 Sep, [facility] [address] [id number], [place] [address]- 4076 [address], [address] [facility] [address] [id number], [place] [address]- 0524 Aug, [facility] [address] [id number], [place] [address]- 2541 Aug, [facility] [address] [id number], [place] [address]- 6090 Aug, [facility] [address] [id number], [place] [address] 2544 Aug, [facility] [address] [id number], [place] [address]- 2513 24 Jul, 2014 [facility] [address] [id number], [place] [address]- 1728 Jul, [facility] [place] [facility] [address] [id number] [place] [address]- 0958 Jul, [facility] [place] [facility] [address] [id number] [place] 9205 20 Jul, 2014 [facility] [place] [facility] [address] [id number] [place] [address]- 9836 14 Jun, 2014 [facility] [place] [facility] [address] [id number] [place] [address]- 7434 14 Jun, 2014 [facility] [place] [facility] [address] [id number] [place] [address]- 8704 18 May, 2014 [facility] [place] [facility] [address] [id number] [place] [address]- 5882 18 May, 2014 [facility] [place] [facility] [address] [id number] [place] [address]- 2230 18 May, 2014 [facility] [place] [facility] [address] [id number] [place] [address]- 1779 18 May, 2014 [facility] [place] [facility] [address] [id number] [place] [address]- 9596 Apr, [facility] [place] [facility] [address] [id number] [place] [address]- 0036 Apr, [facility] [place] [facility] [address] [id number], [place] [address]- 0256 14 Mar, 2014 [facility] [place] [facility] [address] [id number], [place] [address]- 8499 14 Mar, 2014 [facility] [place] [facility] [address] [id number] [place] [address]- 2241 14 Mar, 2014 [facility] [place] [facility] [address] [id number], [place] [address]- 5796 14 Mar, 2014 [facility] [place] [facility] [address] [id number] [place] [address]- 4579 09 Mar, 2014 [facility] [place] [facility] [address] [id number] [place] [address]- 0394 09 Mar, 2013 [facility] [place] [facility] [address] [id number] [place] [address]- 3758 07 Mar, 2013 [facility] [place] [facility] [address] [id number] [place] [address]- 8536 07 Mar, 2013 [facility] [place] [facility] [address] [id number] [place] [address]- 2919 25 Feb, 2013 [facility] [place] [facility] [address] [id number] [place] [address]- 5699 25 Sep, 2013 [facility] [place] [facility] [address] [id number] [place] [address]- 0533 18 Feb, 2013 [facility] [place] [facility] [address] [id number] [place] [address]- 3807 18 Feb, 2013 [facility] [place] [facility] [address] [id number] [place] [address]- 8865 10 Feb, 2013 [facility] [place] [facility] [address] [id number] [place] [address]- 2541 10 Feb, 2013 [facility] [place] [facility] [address] [id number] [place] [address]- 2540 05 Sep, 2013 [facility] [place] [facility] [address] [id number] [place] [address]- 1996 05 Sep, 2013 [facility] [place] [facility] [address] [id number] [place] [address]- 2543 05 Sep, 2013 [facility] [place] [facility] [address] [id number] [place] [address] 2548 05 Sep, 2013 [facility] [place] [facility] [address] [id number] [place] [address]- 2545 03 Feb, 2013 [facility] [place] [facility] [address] [id number] [place] [address]- 2546 03 Feb, 2013 [facility] [place] [facility] [address] [id number] [place] [address]- 7404 Jan, [facility] [place] [facility] [address] [id number] [place] [address]- 5463 Jan, [facility] [place] [facility] [address] [id number] [place] [address]- 8517 Jan, [facility] [place] [facility] [address] [id number] [place] [address]- 8959 Jan, [facility] [place] [facility] [address] [id number] [place] [address]- 9385 Dec, [facility] [place] [facility] [address] [id number] [place] [address]- 4967 Dec, [facility] [place] [facility] [address] [id number] [place] [address]- 5786 Dec, [facility] [place] [facility] [address] [id number] [place] [address]- 6077 Dec, [facility] [place] [facility] [address] [id number] [place] [address]- 9851 Dec, [facility] [place] [facility] [address] [id number] [place] [address]- 2241 Dec, [facility] [place] [facility] [address] [id number] [place] [address]- 2142 Dec, [facility] [place] [facility] [address] [id number] [place] [address]- 3450 Dec, [facility] [place] [facility] [address] [id number] [place] [address]- 7362 Dec, [facility] [place] [facility] [address] [id number] [place] [address]- 0480 Dec, [facility] [place] [facility] [address] [id number] [place] [address]- 0130 Dec, [facility] [place] [facility] [address] [id number] [place] [address]- 8536 Dec, [facility] [place] [facility] [address] [id number] [place] [address]- 2227 October, [facility] [place] [facility] [address] [id number] [place] [address]- 9814 October, [facility] [place] [facility] [address] [id number] [place] [address]- 2838 Aug, [facility] [place] [facility] [address] [id number] [place] [address]- 8166 Aug, [facility] [place] [facility] [address] [id number] [place] [address]- 3796 Aug, [facility] [place] [facility] [address] [id number] [place] [address]- 3860 Aug, [facility] [place] [facility] [address] [id number] [place] [address]- 9228 Jun, [facility] [place] [facility] [address] [id number] [place] [address]- 7201 Jun, [facility] [place] [facility] [address] [id number] [place] [address]- 4704 Jun, [facility] [place] [facility] [address] [id number] [place] [address]- 5933 Jun, [facility] [place] [facility] [address] [id number] [place] [address]- 8191 Jun, [facility] [place] [facility] [address] [id number] [place] [address]- 1307 Jun, [facility] [place] [facility] [address] [id number] [place] [address]- 6585 Jun, [facility] [place] [facility] [address] [id number] [place] [address]- 3200 Jun, [facility] [place] [facility] [address] [id number] [place] [address]- 5552 May, [facility] [place] [facility] [address] [id number] [place] [address]- 9521 May, [facility] [place] [facility] [address] [id number] [place] [address]- 8016 Apr, [facility] [place] [facility] [address] [id number] [place] [address]- 5949 Apr, [facility] [place] [facility] [address] [id number] [place] [address]- 5852 15 Apr, 2013 [facility] [place] [facility] [address] [id number] [place] [address]- 2245 Apr, [facility] [place] [facility] [address] [id number] [place] [address]- 3283 Apr, [facility] [place] [facility] [address] [id number] [place] [address]- 0736 Mar, [facility] [place] [facility] [address] [id number] [place] [address]- 2369 Mar, [facility] [place] [facility] [address] [id number] [place] [address]- 6063 Mar, [facility] [place] [facility] [address] [id number] [place] [address]- 3514 Mar, [facility] [place] [facility] [address] [id number] [place] [address]- 6448 Feb, [facility] [place] [facility] [address] [id number] [place] [address]- 3413 Jan, [facility] [place] [facility] [address] [id number] [place] [address]- 7471 Dec, [facility] [place] [facility] [address] [id number] [place] [address]- 1933 Dec, [facility] [place] [facility] [address] [id number] [place] [address]- 5520 Dec, [facility] [place] [facility] [address] [id number] [place] [address]- 8454 Dec, [facility] [place] [facility] [address] [id number] [place] [address]- 9917 Nov, [facility] [address] [id number] [place] [address]- 1376 October, [facility] [address] [id number] [place] [address]- 9726 October, [facility] [address] [id number] [place] [address]- 1454 October, [facility] [address] [id number] [place] [address]- 5396 October, [facility] [address] [id number] [place] [address]- 8351 October, [facility] [address] [id number] [place] [address]- 7017 October, [facility] [address] [id number] [place] [address]- 6296 October, [facility] [address] [id number] [place] [address]- 9366 October, [facility] [address] [id number] [place] [address]- 9502 Sep, [facility] [place] [facility] [address] [id number] [place] [address]- 3425 Sep, [facility] [address] [id number] [place] [address]- 0592 Sep, [facility] [place] [facility] [address] [id number] [place] [address]- 9307 Aug, [facility] [place] [facility] [address] [id number] [place] [address]- 8419 Aug, [facility] [place] [facility] [address] [id number] [place] [address]- 9995 Aug, [facility] [place] [facility] [address] [id number] [place] [address]- 3136 Aug, [facility] [place] [facility] [address] [id number] [place] [address]- 0298 Aug, [facility] [address] [id number] [place] [address]- 0262 Aug, [facility] [place] [facility] [address] [id number] [place] [address]- 1965 Jul, [facility] [address] [id number] [place] [address]- 1128 Jun, [facility] [place] [facility] [address] [id number] [place] [address]- 8260 Mar, [facility] [address] [id number] [place] [address]- 8537 Mar, [facility] [place] [facility] [address] [id number] [place] [address]- 9109 Mar, [facility] [place] [facility] [address] [id number] [place] [address]- 9860 Mar, [facility] [address] [id number] [place] [address]- 0001 Mar, [facility] [place] [facility] [address] [id number] [place] [address]- 8505 25 Feb, 2012 [facility] [place] [facility] [address] [id number] [place] [address]- 3236 24 Feb, 2012 [facility] [place] [facility] [address] [id number] [place] [address] 2542 20 Feb, 2012 [facility] [place] [facility] [address] [id number] [place] [address] 2549 Feb, [facility] [place] [facility] [address] [id number] [place] [address]- 9028 04 Feb, 2012 [facility] [place] [facility] [address] [id number] [place] [address] 30 Jan, 2012 [facility] [place] [facility] [address] [id number] [place] [address] Nov, [facility] [address] [id number] [place] [address] 06 Nov, 2011 [facility] [place] [facility] [address] [id number] [place] [address] Nov, [facility] [place] [facility] [address] [id number] [place] [address] 30 Sep, 2011 [facility] [place] [facility] [address] [id number] [place] [address] Sep, [facility] [address] [id number] [place] [address] 2006 Sep, [facility] [place] [facility] [address] [id number] [place] [address] Aug, [facility] [place] [facility] [address] [id number] [place] [address] Aug, [facility] [address] [id number] [place] [address] Jul, [facility] [place] [facility] [address] [id number] [place] [address] Jul, [facility] [place] [facility] [address] [id number] [place] [address] Jun, [facility] [place] [facility] [address] [id number] [place] [address] Jun, [facility] [place] [facility] [address] [id number] [place] [address] May, [facility] [place] [facility] [address] [id number] [place] [address] May, [facility] [place] [facility] [address] [id number] [place] [address] May, [facility] [place] [facility] [address] [id number] [place] [address] 14 May, 2011 [facility] [place] [facility] [address] [id number] [place] [address] 14 May, 2011 [facility] [address] [id number] [place] [address] 23 Apr, 2011 [facility] [place] [facility] [address] [id number] [place] 10 Aug, 2010 [facility] [place] [facility] [address] [id number] [place] [address] 18 Jul, 2010 [facility] [place] [facility] [address] [id number] [place] [address] Apr, [facility] [place] [facility] [address] [id number] [place] [address] Apr, [facility] [place] [facility] [address] [id number] [place] [address] Apr, [facility] [place] [facility] [address] [id number] [place] [address] 14 Mar, 2010 [facility] [place] [facility] [address] [id number] [place] [address] Jan, [facility] [place] [facility] [address] [id number] [place] [address] 16 Sep, 2009 [facility] [place] [facility] [address] [facility] [id number] [place] [address] Jun, [facility] [place] [facility] [address] [id number] [place] [address] 29 May, 2009 [facility] [place] [facility] [address] [id number], [place] [address] 07 May, 2009 [facility] [place] [facility] [address] [id number] [place] [address] May, [facility] [place] [facility] [address] [id number] [place] [address] 29 Mar, 2009 [facility] [place] [facility] [address] [id number], [place] [address] 10 Feb, 2009 [facility] [place] [facility] [address] [facility] [id number] [place] [address] Nov, [facility] [address] [facility] [id number], [place] [address] Aug, IMMUNIZATIONS No Known Immunizations SOCIAL HISTORY Never Assessed REASON FOR VISIT Novolog/Med Change PLAN OF CARE VITAL SIGNS MEDICATIONS Medication Instructions Dosage Frequency Start Date End Date Duration Status Humalog 100 UNIT/ML as directed per insulin pump Sep, Active RESULTS No Results PROCEDURES No Known procedures INSTRUCTIONS MEDICATIONS ADMINISTERED No Known Medications MEDICAL (GENERAL) HISTORY Type Description Date Medical History DM Medical History Cholecystectomy Medical History Breast Cancer 04/2012 Surgical History post cholecystectomy Surgical History Hysterectomy Surgical History Masectomy Surgical History section x 3 Surgical History carpal tunnel release bilateral Surgical History bilateral trigger finger release Hospitalization History DKA at in [place] September 2016
--- OUTSIDE RECORDS SUMMARY | 2018-06-01 16:24 | XMS REPORT ---
Author Author EUGENIO BELTRAN Organization [facility] Address [address] [place] [address] Care Team Providers Care Air Pumper Name Role Phone EUGENIO BELTRAN Unavailable PROBLEMS Type Condition ICD9-CM Code XVB64-IN Code Onset Dates Condition Status SNOMED Code Problem Dysthymia F34.1 Active 44470254 Problem Rheumatoid arthritis M06.9 Active 06544138 Problem Hypothyroid E03.9 Active 20795389 Problem Primary osteoarthritis involving multiple joints M15.0 Active 243942865 Problem History of breast cancer Z85.3 Active 148950614 Problem Diabetes E11.9 Active 79756829 ALLERGIES No Information ENCOUNTERS Encounter Location Date Diagnosis [facility] [id number] [place] [address] 13796- 5590 Jan, [facility] [id number] [place] [address] 01531- 3784 Dec, [facility] [id number] [place] [address] 62930- 8907 Sep, Diabetes E11.9 [facility] [id number] [place] [address] 97319- 2993 Sep, [facility] [id number] [place] [address] 09373- 7921 Aug, [facility] [id number] [place] [address] 47569- 5920 Jul, [facility] [id number] [place] [address] 71810- 8732 Jul, [facility] [id number] [place] [address] 05976- 7520 Jul, [facility] [id number] [place] [address] 16445- 9858 Jul, Diabetes E11.9 and Dysthymia F34.1 [facility] [address] 17160- 8547 Jul, [facility] [id number] [place] [address] 66909- 6036 Jun, Callus L84 and Diabetes E11.9 [facility] [address] 49641- 7846 May, [facility] [address] 89972- 3270 Apr, [facility] [address] 02374- 4183 Apr, [facility] [address] 95326- 0740 Apr, Diabetes E11.9 ; Hypothyroid E03.9 ; Dysthymia F34.1 ; Tobacco abuse Z72.0 ; Colon cancer screening Z12.11 and Encounter for immunization Z23 [facility] [id number] [place] [address] 31025- 1614 Dec, [facility] [id number] [place] [address] 62245- 3395 Dec, [facility] [id number] [place] [address] 25804- 2253 Dec, Hypothyroid E03.9 and Diabetes E11.9 [facility] [id number] [place] [address] 39095- 7822 Nov, [facility] [address] 54603- 0678 Nov, [facility] [id number] [place] [address] 50322- 5090 Nov, [facility] [address] 52513- 5454 Nov, Hypothyroid E03.9 [facility] [address] [address] 8906 October, Hypothyroid E03.9 [facility] [address] [address]- 5736 October, Diabetes E11.9 [facility] [id number] [place] [address] 63394- 0057 Aug, Hypothyroid E03.9 [facility] [address] [address]- 1048 Aug, Hypothyroid E03.9 [facility] [id number] [place] [address] 84380- 3082 Apr, Hypothyroid E03.9 [facility] [id number] [place] [address] 58045- 0149 Apr, Diabetes E11.9 and Hypothyroid E03.9 [facility] [address], [place] [address]- 6767 Mar, Encounter for immunization Z23 [facility] [id number] [place] [address] 62666- 9326 Feb, Diabetes E11.9 [facility] [address], [place] [address]- 5077 Jan, [facility] [id number] [place] [address] 36544- 6314 Jan, [facility] [id number] [address]- 3260 Jan, Diabetes E11.9 [facility] [address] 8586 Dec, Trigger middle finger of right hand M65.331 ; Trigger finger of right thumb M65.311 ; Trigger finger of left thumb M65.312 and Trigger ring finger of left hand M65.342 [facility] [address] [id number] [place] [address]- 4579 Dec, [facility] [address] [facility] [id number] [place] [address]- 7087 Dec, Hypothyroid E03.9 [facility] [address] [facility] [id number] [place] [address]- 8014 Nov, [facility] [address] [facility] [id number] [place] [address]- 0068 October, [facility] [address] [facility] [id number] [place] [address]- 8740 October, Hypothyroid E03.9 [facility] [address] [facility] [id number] [place] [address]- 5856 October, [facility] [address] [facility] [id number] [place] [address]- 9690 Sep, Hypothyroid E03.9 and Diabetes E11.9 [facility] [address] [facility] [id number] [place] [address]- 4128 Sep, Diabetes E11.9 and Hypothyroid E03.9 [facility] [address] [facility] [id number] [place] [address]- 9138 Sep, [facility] [address] [facility] [id number] [place] [address]- 0162 Aug, [facility] [address] [facility] [id number] [place] [address]- 9743 Aug, [facility] [address] [facility] [id number] [place] [address]- 2119 Aug, [facility] [address] [facility] [id number] [place] [address]- 5608 Aug, [facility] [address] [facility] [id number] [place] [address]- 8922 08 Aug, 2015 [facility] [address] [facility] [id number] [place] [address]- 2093 Jul, [facility] [id number] [address]- 3866 Jun, [facility] [id number] [place] [address] 678151- 8980 Jun, Rheumatoid arthritis involving multiple sites with positive rheumatoid factor M05.79 [facility] [id number] [place] [address] 11209- 9356 Jun, [facility] [id number] [place] [address] 74233- 8543 May, [facility] [id number] [place] [address] 871154- 7960 May, Rheumatoid arthritis involving multiple sites with positive rheumatoid factor M05.79 [address] [id number] [place] [address] 58519- 9304 May, [facility] [id number] [place] [address] 45223- 8168 May, Rheumatoid arthritis involving multiple sites with positive rheumatoid factor M05.79 [facility] [id number] [place] [address] 745682- 8185 Apr, Diabetes E11.9 ; Long-term insulin use Z79.4 ; Insulin pump in place Z96.41 ; Arthralgia of hand, unspecified laterality M79.643 and History of breast cancer Z85.3 [facility] [id number] [place] [address] 23128- 7175 Apr, [facility] [address], [place] [address]- 2696 Mar, [facility] [id number] [place] [address] 965747- 1997 Mar, [facility] [address], [place] [address]- 0324 Feb, UTI (urinary tract infection) 599.0 [facility] [id number] [address]- 4791 28 Feb, 2015 UTI (urinary tract infection) 599.0 [facility] [address] [id number] [place] [address]- 8926 28 Feb, 2015 UTI (urinary tract infection) 599.0 [facility] [address] [id number], [place] [address] 2546 28 Feb, 2014 UTI (urinary tract infection) 599.0 [facility] [address] [id number], [place] [address] 2546 22 Feb, 2015 [facility] [address] [id number], [place] [address]- 7547 17 Feb, 2015 [facility] [address] [id number], [place] [address]- 1808 15 Feb, 2015 [facility] [address] [id number], [place] [address]- 7808 14 Feb, 2015 [facility] [address] [id number], [place] [address]- 0443 11 Nov, 2014 Trigger finger of right hand 727.03 [facility] [address] [id number], [place] [address]- 9506 14 Sep, 2014 [facility] [address] [id number], [place] [address]- 7391 13 Sep, 2014 [facility] [address] [id number], [place] [address]- 9472 03 Aug, 2014 [facility] [address] [id number], [place] [address]- 2077 Aug, [facility] [address] [id number], [place] [address]- 3827 02 Aug, 2014 [facility] [address] [id number], [place] [address]- 3193 02 Aug, 2014 [facility] [address] [id number], [place] [address]- 4090 Jul, 2014 [facility] [place] [facility] [address] [id number] [place] [address]- 0776 Jul, [facility] [place] [facility] [address] [id number] [place] [address]- 0449 Jul, [facility] [place] [facility] [address] [id number] [place] [address]- 7336 Jul, [facility] [place] [facility] [address] [id number] [place] [address]- 5458 14 Jun, 2014 [facility] [place] [facility] [address] [id number] [place] [address]- 2367 14 Jun, 2014 [facility] [place] [facility] [address] [id number] [place] [address]- 0599 18 May, 2014 [facility] [place] [facility] [address] [id number] [place] [address]- 2152 18 May, 2014 [facility] [place] [facility] [address] [id number] [place] [address]- 7416 18 May, 2014 [facility] [place] [facility] [address] [id number] [place] [address]- 1391 18 May, 2014 [facility] [place] [facility] [address] [id number] [place] [address]- 2803 Apr, [facility] [place] [facility] [address] [id number], [place] [address]- 8103 Apr, [facility] [place] [facility] [address] [id number], [place] [address]- 6629 14 Mar, 2014 [facility] [place] [facility] [address] [id number] [place] [address]- 9957 14 Mar, 2014 [facility] [place] [facility] [address] [id number] [place] [address]- 3526 14 Mar, 2014 [facility] [place] [facility] [address] [id number] [place] [address]- 4588 14 Mar, 2014 [facility] [place] [facility] [address] [id number] [place] [address]- 6895 09 Mar, 2013 [facility] [place] [facility] [address] [id number] [place] [address]- 6805 09 Mar, 2013 [facility] [place] [facility] [address] [id number] [place] [address]- 8976 Mar, 2013 [facility] [place] [facility] [address] [id number] [place] [address]- 0332 07 Mar, 2013 [facility] [place] [facility] [address] [id number] [place] [address]- 3536 25 Sep, 2013 [facility] [place] [facility] [address] [id number] [place] [address]- 0557 25 Sep, 2013 [facility] [place] [facility] [address] [id number] [place] [address]- 3779 18 Sep, 2013 [facility] [place] [facility] [address] [id number] [place] [address]- 0446 18 Sep, 2013 [facility] [place] [facility] [address] [id number] [place] [address]- 2544 10 Sep, 2013 [facility] [place] [facility] [address] [id number] [place] [address]- 2548 10 Sep, 2013 [facility] [place] [facility] [address] [id number] [place] [address]- 5209 05 Sep, 2013 [facility] [place] [facility] [address] [id number] [place] [address]- 2541 05 Sep, 2013 [facility] [place] [facility] [address] [id number] [place] [address] 2542 05 Sep, 2013 [facility] [place] [facility] [address] [id number] [place] [address] 2546 05 Sep, 2013 [facility] [place] [facility] [address] [id number] [place] [address]- 2541 03 Sep, 2013 [facility] [place] [facility] [address] [id number] [place] [address]- 9942 Feb, [facility] [place] [facility] [address] [id number] [place] [address]- 1296 Jan, [facility] [place] [facility] [address] [id number] [place] [address]- 1495 Jan, [facility] [place] [facility] [address] [id number] [place] [address]- 7886 Jan, [facility] [place] [facility] [address] [id number] [place] [address]- 0045 Jan, [facility] [place] [facility] [address] [id number] [place] [address]- 6335 Dec, [facility] [place] [facility] [address] [id number] [place] [address]- 7592 Dec, [facility] [place] [facility] [address] [id number] [place] [address]- 3932 Dec, [facility] [place] [facility] [address] [id number] [place] [address]- 8734 Dec, [facility] [place] [facility] [address] [id number] [place] [address]- 8623 Dec, [facility] [place] [facility] [address] [id number] [place] [address]- 0415 Dec, [facility] [place] [facility] [address] [id number] [place] [address]- 1047 Dec, [facility] [place] [facility] [address] [id number] [place] [address]- 6172 Dec, [facility] [place] [facility] [address] [id number] [place] [address]- 1227 Dec, [facility] [place] [facility] [address] [id number] [place] [address]- 5798 Dec, [facility] [place] [facility] [address] [id number] [place] [address]- 9074 Dec, [facility] [place] [facility] [address] [id number] [place] [address]- 0165 07 Dec, 2013 [facility] [place] [facility] [address] [id number] [place] [address]- 9509 October, [facility] [place] [facility] [address] [id number] [place] [address]- 8806 October, [facility] [place] [facility] [address] [id number] [place] [address]- 8361 Aug, [facility] [place] [facility] [address] [id number] [place] [address]- 0428 Aug, [facility] [place] [facility] [address] [id number] [place] [address]- 2545 Aug, [facility] [place] [facility] [address] [id number] [place] [address]- 6160 Aug, [facility] [place] [facility] [address] [id number] [place] [address]- 8201 Jun, [facility] [place] [facility] [address] [id number] [place] [address]- 5430 Jun, [facility] [place] [facility] [address] [id number] [place] [address]- 5783 Jun, [facility] [place] [facility] [address] [id number] [place] [address]- 6947 15 Jun, 2013 [facility] [place] [facility] [address] [id number] [place] [address]- 4261 14 Jun, 2013 [facility] [place] [facility] [address] [id number] [place] [address]- 0131 14 Jun, 2013 [facility] [place] [facility] [address] [id number] [place] [address]- 9503 Jun, [facility] [place] [facility] [address] [id number] [place] [address]- 1266 Jun, [facility] [place] [facility] [address] [id number] [place] [address]- 0831 May, [facility] [place] [facility] [address] [id number] [place] [address]- 5980 May, [facility] [place] [facility] [address] [id number] [place] [address]- 9724 Apr, [facility] [place] [facility] [address] [id number] [place] [address]- 7226 Apr, [facility] [place] [facility] [address] [id number] [place] [address]- 5424 15 Apr, 2013 [facility] [place] [facility] [address] [id number] [place] [address]- 1457 Apr, [facility] [place] [facility] [address] [id number] [place] [address]- 8077 Apr, [facility] [place] [facility] [address] [id number] [place] [address]- 3619 Mar, [facility] [place] [facility] [address] [id number] [place] [address]- 7460 Mar, [facility] [place] [facility] [address] [id number] [place] [address]- 7539 Mar, [facility] [place] [facility] [address] [id number] [place] [address]- 1256 Mar, [facility] [place] [facility] [address] [id number] [place] [address]- 0553 Feb, [facility] [place] [facility] [address] [id number] [place] [address]- 1167 Jan, [facility] [place] [facility] [address] [id number] [place] [address]- 7902 Dec, [facility] [place] [facility] [address] [id number] [place] [address]- 1776 Dec, [facility] [place] [facility] [address] [id number] [place] [address]- 0514 Dec, [facility] [place] [facility] [address] [id number] [place] [address]- 6270 Dec, [facility] [address] [id number] [place] [address]- 4034 Nov, [facility] [address] [id number] [place] [address]- 9596 October, [facility] [address] [id number] [place] [address]- 9746 October, [facility] [address] [id number] [place] [address]- 2950 October, [facility] [address] [id number] [place] [address]- 7200 October, [facility] [address] [id number] [place] [address]- 0946 October, [facility] [address] [id number] [place] [address]- 1586 October, [facility] [address] [id number] [place] [address]- 0484 October, [facility] [address] [id number] [place] [address]- 6346 October, [facility] [address] [id number] [place] [address]- 0716 Sep, [facility] [address] [id number] [place] [address]- 2246 Sep, [facility] [place] [facility] [address] [id number] [place] [address]- 2543 Sep, [facility] [place] [facility] [address] [id number] [place] [address]- 2541 Aug, [facility] [place] [facility] [address] [id number] [place] [address]- 7677 Aug, [facility] [place] [facility] [address] [id number] [place] [address]- 2197 Aug, [facility] [place] [facility] [address] [id number] [place] [address]- 0827 27 Aug, 2012 [facility] [address] [id number] [place] [address]- 2508 Aug, [facility] [place] [facility] [address] [id number] [place] [address]- 6378 05 Aug, 2012 [facility] [address] [id number] [place] [address]- 7507 Jul, [facility] [place] [facility] [address] [id number] [place] [address]- 9624 Jun, [facility] [address] [id number] [place] [address]- 3905 Mar, [facility] [address] [id number] [place] [address]- 0843 Mar, [facility] [place] [facility] [address] [id number] [place] [address]- 7059 Mar, [facility] [address] [id number] [place] [address]- 9928 Mar, [facility] [place] [facility] [address] [id number] [place] [address]- 5055 Mar, [facility] [address] [id number] [place] [address]- 7626 25 Feb, 2012 [facility] [place] [facility] [address] [id number] [place] [address] 24 Feb, 2012 [facility] [place] [facility] [address] [id number] [place] [address] 20 Feb, 2012 [facility] [place] [facility] [address] [id number] [place] [address] Feb, [facility] [place] [facility] [address] [id number] [place] [address] Feb, [facility] [place] [facility] [address] [id number] [place] [address] 30 Jan, 2012 [facility] [address] [id number] [place] [address] 07 Nov, 2011 [facility] [place] [facility] [address] [id number] [place] [address] Nov, [facility] [place] [facility] [address] [id number] [place] [address] 05 Nov, 2011 [facility] [place] [facility] [address] [id number] [place] [address] 30 Sep, 2011 [facility] [place] [facility] [address] [id number] [place] [address] Sep, [facility] [place] [facility] [address] [id number] [place] [address] Sep, [facility] [place] [facility] [address] [id number] [place] [address] Aug, [facility] [place] [facility] [address] [id number] [place] [address] Aug, [facility] [place] [facility] [address] [id number] [place] [address] Jul, [facility] [place] [facility] [address] [id number] [place] [address] Jul, [facility] [place] [facility] [address] [id number] [place] [address] Jun, [facility] [place] [facility] [address] [id number] [place] [address] Jun, [facility] [place] [facility] [address] [id number] [place] [address] May, [facility] [place] [facility] [address] [id number] [place] [address] May, [facility] [place] [facility] [address] [id number] [place] [address] May, [facility] [place] [facility] [address] [id number] [place] [address] 14 May, 2011 [facility] [address] [id number] [place] [address] 14 May, 2011 [facility] [place] [facility] [address] [id number] [place] [address] 23 Apr, 2011 [facility] [place] [facility] [address] [id number] [place] [address] Aug, [facility] [place] [facility] [address] [id number] [place] [address] 18 Jul, 2010 [facility] [place] [facility] [address] [id number] [place] [address] Apr, [facility] [place] [facility] [address] [id number] [place] [address] Apr, [facility] [place] [facility] [address] [id number] [place] [address] Apr, [facility] [place] [facility] [address] [id number] [place] [address] Mar, [facility] [place] [facility] [address] [id number] [place] [address] Jan, [facility] [place] [facility] [address] [facility] [id number] [place] [address] 16 Sep, 2009 [facility] [place] [facility] [address] [id number] [place] [address] Jun, [facility] [place] [facility] [address] [id number], [place] [address] 29 May, 2009 [facility] [place] [facility] [address] [id number] [place] [address] May, [facility] [place] [facility] [address] [id number] [place] [address] May, [facility] [place] [facility] [address] [id number], [place] [address] 29 Mar, 2009 [facility] [place] [facility] [address] [facility] [id number] [place] [id number] Feb, [facility] [address] [facility] [id number], [place] [address] Nov, [facility] [address] [facility] [id number], [place] [address] Aug, IMMUNIZATIONS No Known Immunizations SOCIAL HISTORY Never Assessed REASON FOR VISIT IPRO results shared with pt PLAN OF CARE VITAL SIGNS MEDICATIONS Unknown Medications RESULTS No Results PROCEDURES No Known procedures INSTRUCTIONS MEDICATIONS ADMINISTERED No Known Medications MEDICAL (GENERAL) HISTORY Type Description Date Medical History DM Medical History Cholecystectomy Medical History Breast Cancer 04/2012 Surgical History post cholecystectomy Surgical History Hysterectomy Surgical History Masectomy Surgical History section x 3 Surgical History carpal tunnel release bilateral Surgical History bilateral trigger finger release Hospitalization History DKA at in [place] September 2016
--- OUTSIDE RECORDS SUMMARY | 2018-06-01 16:24 | XMS REPORT ---
Author Author EUGENIO BELTRAN Organization [facility] Address [address] [place] [address] Care Team Providers Care Staff Development Manager Name Role Phone EUGENIO BELTRAN Unavailable PROBLEMS Type Condition ICD9-CM Code INE19-LG Code Onset Dates Condition Status SNOMED Code Problem Dysthymia F34.1 Active 39866653 Problem Rheumatoid arthritis M06.9 Active 57673600 Problem Hypothyroid E03.9 Active 68042558 Problem Primary osteoarthritis involving multiple joints M15.0 Active 612042384 Problem History of breast cancer Z85.3 Active 886369986 Problem Diabetes E11.9 Active [id number] ALLERGIES No Information ENCOUNTERS Encounter Location Date Diagnosis [facility] [id number] [place] [address] 94784- 5664 Jan, [facility] [id number] [place] [address] 29275- 6643 Dec, [facility] [id number] [place] [address] 66511- 9180 Sep, Diabetes E11.9 [facility] [id number] [place] [address] 09232- 4271 Sep, [facility] [id number] [place] [address] 13853- 2361 Aug, [facility] [id number] [place] [address] 58314- 9051 Jul, [facility] [id number] [place] [address] 60028- 2145 Jul, [facility] [id number] [place] [address] 83255- 9963 Jul, [facility] [id number] [place] [address] 47990- 7315 Jul, Diabetes E11.9 and Dysthymia F34.1 [facility] [address] 72877- 2027 Jul, [facility] [id number] [place] [address] 49644- 0501 Jun, Callus L84 and Diabetes E11.9 [facility] [address] 18671- 4924 May, [facility] [address] 63588- 9731 Apr, [facility] [address] 16531- 9910 Apr, [facility] [address] 03955- 9736 Apr, Diabetes E11.9 ; Hypothyroid E03.9 ; Dysthymia F34.1 ; Tobacco abuse Z72.0 ; Colon cancer screening Z12.11 and Encounter for immunization Z23 [facility] [id number] [place] [address] 09911- 4231 Dec, [facility] [id number] [place] [address] 00223- 6034 Dec, [facility] [id number] [place] [address] 44763- 5672 Dec, Hypothyroid E03.9 and Diabetes E11.9 [facility] [id number] [place] [address] 90496- 1984 Nov, [facility] [address] 23459- 7323 Nov, [facility] [id number] [place] [address] 47471- 1662 Nov, [facility] [address] 30540- 2029 Nov, Hypothyroid E03.9 [facility] [address] [address] 5506 October, Hypothyroid E03.9 [facility] [address] [address]- 6076 October, Diabetes E11.9 [facility] [address] [place] [address] 48815- 5814 Aug, Hypothyroid E03.9 [facility] [address] [address]- 5830 Aug, Hypothyroid E03.9 [facility] [address] [place] [address] 27646- 0980 Apr, Hypothyroid E03.9 [facility] [address] [place] [address] 27381- 1230 Apr, Diabetes E11.9 and Hypothyroid E03.9 [facility] [address] [address]- 1162 Mar, Encounter for immunization Z23 [facility] [id number] [place] [address] 57939- 5296 Feb, Diabetes E11.9 [facility] [address] [address]- 6789 Jan, [facility] [address] [place] [address] 06774- 3265 Jan, [facility] [id number] [address]- 6266 Jan, Diabetes E11.9 [facility] [address] 3168 Dec, Trigger middle finger of right hand M65.331 ; Trigger finger of right thumb M65.311 ; Trigger finger of left thumb M65.312 and Trigger ring finger of left hand M65.342 [facility] [address] [id number] [place] [address]- 4255 Dec, [facility] [address] [facility] [id number] [place] [address]- 5516 Dec, Hypothyroid E03.9 [facility] [address] [facility] [id number] [place] [address]- 3451 Nov, [facility] [address] [facility] [id number] [place] [address]- 4993 October, [facility] [address] [facility] [id number] [place] [address]- 2694 October, Hypothyroid E03.9 [facility] [address] [facility] [id number] [place] [address]- 0953 October, [facility] [address] [facility] [id number] [place] [address]- 4079 Sep, Hypothyroid E03.9 and Diabetes E11.9 [facility] [address] [facility] [id number] [place] [address]- 7509 Sep, Diabetes E11.9 and Hypothyroid E03.9 [facility] [address] [facility] [id number] [place] [address]- 9286 Sep, [facility] [address] [facility] [id number] [place] [address]- 6344 Aug, [facility] [address] [facility] [id number] [place] [address]- 8064 Aug, [facility] [address] [facility] [id number] [place] [address]- 9378 Aug, [facility] [address] [facility] [id number] [place] [address]- 9929 Aug, [facility] [address] [facility] [id number] [place] [address]- 9623 08 Aug, 2015 [facility] [address] [facility] [id number] [place] [address]- 2000 Jul, [facility] [id number] [address]- 1139 Jun, [facility] [address] [place] [address] 175668- 5618 Jun, Rheumatoid arthritis involving multiple sites with positive rheumatoid factor M05.79 [facility] [address] [place] [address] 85020- 7037 Jun, [facility] [address] [place] [address] 09816- 0340 May, [facility] [id number] [place] [address] 203603- 2217 May, Rheumatoid arthritis involving multiple sites with positive rheumatoid factor M05.79 [facility] [address] [place] [address] 06685- 0355 May, [facility] [id number] [place] [address] 88445- 1783 May, Rheumatoid arthritis involving multiple sites with positive rheumatoid factor M05.79 [facility] [address] [place] [address] 562992- 3193 Apr, Diabetes E11.9 ; Long-term insulin use Z79.4 ; Insulin pump in place Z96.41 ; Arthralgia of hand, unspecified laterality M79.643 and History of breast cancer Z85.3 [facility] [address] [place] [address] 03152- 5887 Apr, [facility] [address] [address]- 4543 Mar, [facility] [address] [place] [address] 114811- 5229 Mar, [facility] [address] [address]- 8106 Feb, UTI (urinary tract infection) 599.0 [facility] [id number] [address]- 1407 28 Feb, 2015 UTI (urinary tract infection) 599.0 [facility] [address] [id number] [place] [address]- 2906 28 Feb, 2015 UTI (urinary tract infection) 599.0 [facility] [address] [id number] [address] 2546 28 Feb, 2014 UTI (urinary tract infection) 599.0 [facility] [address] [id number] [address] 2546 22 Feb, 2015 [facility] [address] [id number] [address]- 0592 17 Feb, 2015 [facility] [address] [id number] [address]- 4554 15 Feb, 2015 [facility] [address] [id number] [address]- 5161 14 Feb, 2015 [facility] [address] [id number] [place] [address]- 1758 11 Nov, 2014 Trigger finger of right hand 727.03 [facility] [address] [id number] [place] [address]- 9402 14 Sep, 2014 [facility] [address] [id number] [place] [address]- 9591 13 Sep, 2014 [facility] [address] [id number] [address]- 1880 03 Aug, 2014 [facility] [address] [id number] [place] [address]- 6997 Aug, [facility] [address] [id number] [place] [address]- 0014 02 Aug, 2014 [facility] [address] [id number] [address]- 3957 02 Aug, 2014 [facility] [address] [id number] [place] [address]- 4839 Jul, 2014 [facility] [place] [facility] [address] [id number] [place] [address]- 7500 Jul, [facility] [place] [facility] [address] [id number] [place] [address]- 6540 Jul, [facility] [place] [facility] [address] [id number] [place] [address]- 7751 Jul, [facility] [place] [facility] [address] [id number] [place] [address]- 5821 14 Jun, 2014 [facility] [place] [facility] [address] [id number] [place] [address]- 5095 14 Jun, 2014 [facility] [place] [facility] [address] [id number] [place] [address]- 5659 18 May, 2014 [facility] [place] [facility] [address] [id number] [place] [address]- 9981 18 May, 2014 [facility] [place] [facility] [address] [id number] [place] [address]- 9129 18 May, 2014 [facility] [place] [facility] [address] [id number] [place] [address]- 4713 18 May, 2014 [facility] [place] [facility] [address] [id number] [place] [address]- 7658 Apr, [facility] [place] [facility] [address] [id number] [place] [address]- 6889 Apr, [facility] [place] [facility] [address] [id number] [place] [address]- 0345 14 Mar, 2014 [facility] [place] [facility] [address] [id number] [place] [address]- 5118 14 Mar, 2014 [facility] [place] [facility] [address] [id number] [place] [address]- 0066 14 Mar, 2014 [facility] [place] [facility] [address] [id number] [place] [address]- 7194 14 Mar, 2014 [facility] [place] [facility] [address] [id number] [place] [address]- 0995 09 Mar, 2013 [facility] [place] [facility] [address] [id number] [place] [address]- 6377 09 Mar, 2013 [facility] [place] [facility] [address] [id number] [place] [address]- 9846 Mar, 2013 [facility] [place] [facility] [address] [id number] [place] [address]- 5541 07 Mar, 2013 [facility] [place] [facility] [address] [id number] [place] [address]- 4415 25 Sep, 2013 [facility] [place] [facility] [address] [id number] [place] [address]- 9261 25 Sep, 2013 [facility] [place] [facility] [address] [id number] [place] [address]- 4653 18 Sep, 2013 [facility] [place] [facility] [address] [id number] [place] [address]- 7948 18 Sep, 2013 [facility] [place] [facility] [address] [id number] [place] [address]- 2545 10 Sep, 2013 [facility] [place] [facility] [address] [id number] [place] [address]- 2543 10 Sep, 2013 [facility] [place] [facility] [address] [id number] [place] [address]- 6293 05 Sep, 2013 [facility] [place] [facility] [address] [id number] [place] [address]- 2543 05 Sep, 2013 [facility] [place] [facility] [address] [id number] [place] [address] 2545 05 Sep, 2013 [facility] [place] [facility] [address] [id number] [place] [address] 2546 05 Sep, 2013 [facility] [place] [facility] [address] [id number] [place] [address]- 2545 03 Sep, 2013 [facility] [place] [facility] [address] [id number] [place] [address]- 2928 Feb, [facility] [place] [facility] [address] [id number] [place] [address]- 7196 Jan, [facility] [place] [facility] [address] [id number] [place] [address]- 9509 Jan, [facility] [place] [facility] [address] [id number] [place] [address]- 3223 Jan, [facility] [place] [facility] [address] [id number] [place] [address]- 5820 Jan, [facility] [place] [facility] [address] [id number] [place] [address]- 7938 Dec, [facility] [place] [facility] [address] [id number] [place] [address]- 2796 Dec, [facility] [place] [facility] [address] [id number] [place] [address]- 4794 Dec, [facility] [place] [facility] [address] [id number] [place] [address]- 7585 Dec, [facility] [place] [facility] [address] [id number] [place] [address]- 1668 Dec, [facility] [place] [facility] [address] [id number] [place] [address]- 7241 Dec, [facility] [place] [facility] [address] [id number] [place] [address]- 4072 Dec, [facility] [place] [facility] [address] [id number] [place] [address]- 0195 Dec, [facility] [place] [facility] [address] [id number] [place] [address]- 3263 Dec, [facility] [place] [facility] [address] [id number] [place] [address]- 6228 Dec, [facility] [place] [facility] [address] [id number] [place] [address]- 9723 Dec, [facility] [place] [facility] [address] [id number] [place] [address]- 3037 07 Dec, 2013 [facility] [place] [facility] [address] [id number] [place] [address]- 8069 October, [facility] [place] [facility] [address] [id number] [place] [address]- 1262 October, [facility] [place] [facility] [address] [id number] [place] [address]- 0457 Aug, [facility] [place] [facility] [address] [id number] [place] [address]- 3008 Aug, [facility] [place] [facility] [address] [id number] [place] [address]- 1232 Aug, [facility] [place] [facility] [address] [id number] [place] [address]- 6290 Aug, [facility] [place] [facility] [address] [id number] [place] [address]- 5916 Jun, [facility] [place] [facility] [address] [id number] [place] [address]- 4070 Jun, [facility] [place] [facility] [address] [id number] [place] [address]- 5030 Jun, [facility] [place] [facility] [address] [id number] [place] [address]- 4648 15 Jun, 2013 [facility] [place] [facility] [address] [id number] [place] [address]- 2865 14 Jun, 2013 [facility] [place] [facility] [address] [id number] [place] [address]- 9973 14 Jun, 2013 [facility] [place] [facility] [address] [id number] [place] [address]- 5956 Jun, [facility] [place] [facility] [address] [id number] [place] [address]- 6140 Jun, [facility] [place] [facility] [address] [id number] [place] [address]- 4446 May, [facility] [place] [facility] [address] [id number] [place] [address]- 6918 May, [facility] [place] [facility] [address] [id number] [place] [address]- 3825 Apr, [facility] [place] [facility] [address] [id number] [place] [address]- 5213 Apr, [facility] [place] [facility] [address] [id number] [place] [address]- 2564 15 Apr, 2013 [facility] [place] [facility] [address] [id number] [place] [address]- 9497 Apr, [facility] [place] [facility] [address] [id number] [place] [address]- 1475 Apr, [facility] [place] [facility] [address] [id number] [place] [address]- 0614 Mar, [facility] [place] [facility] [address] [id number] [place] [address]- 9338 Mar, [facility] [place] [facility] [address] [id number] [place] [address]- 0772 Mar, [facility] [place] [facility] [address] [id number] [place] [address]- 9668 Mar, [facility] [place] [facility] [address] [id number] [place] [address]- 6610 Feb, [facility] [place] [facility] [address] [id number] [place] [address]- 2818 Jan, [facility] [place] [facility] [address] [id number] [place] [address]- 5575 Dec, [facility] [place] [facility] [address] [id number] [place] [address]- 6738 Dec, [facility] [place] [facility] [address] [id number] [place] [address]- 4164 Dec, [facility] [place] [facility] [address] [id number] [place] [address]- 4162 Dec, [facility] [address] [id number] [place] [address]- 1718 Nov, [facility] [address] [id number] [place] [address]- 0896 October, [facility] [address] [id number] [place] [address]- 0814 October, [facility] [address] [id number] [place] [address]- 4011 October, [facility] [address] [id number] [place] [address]- 8982 October, [facility] [address] [id number] [place] [address]- 5066 October, [facility] [address] [id number] [place] [address]- 6636 October, [facility] [address] [id number] [place] [address]- 0890 October, [facility] [address] [id number] [place] [address]- 1171 October, [facility] [address] [id number] [place] [address]- 8140 Sep, [facility] [address] [id number] [place] [address]- 6086 Sep, [facility] [place] [facility] [address] [id number] [place] [address]- 2549 Sep, [facility] [place] [facility] [address] [id number] [place] [address]- 2543 Aug, [facility] [place] [facility] [address] [id number] [place] [address]- 6112 Aug, [facility] [place] [facility] [address] [id number] [place] [address]- 0260 Aug, [facility] [place] [facility] [address] [id number] [place] [address]- 4224 27 Aug, 2012 [facility] [address] [id number] [place] [address]- 1895 Aug, [facility] [place] [facility] [address] [id number] [place] [address]- 7995 05 Aug, 2012 [facility] [address] [id number] [place] [address]- 0982 Jul, [facility] [place] [facility] [address] [id number] [place] [address]- 5980 Jun, [facility] [address] [id number] [place] [address]- 9093 Mar, [facility] [address] [id number] [place] [address]- 1209 Mar, [facility] [place] [facility] [address] [id number] [place] [address]- 1510 Mar, [facility] [address] [id number] [place] [address]- 6160 Mar, [facility] [place] [facility] [address] [id number] [place] [address]- 0354 Mar, [facility] [address] [id number] [place] [address]- 5698 25 Feb, 2012 [facility] [place] [facility] [address] [id number] [place] [address]- 2545 24 Feb, 2012 [facility] [place] [facility] [address] [id number] [place] [address]- 2540 20 Feb, 2012 [facility] [place] [facility] [address] [id number] [place] [address] Feb, [facility] [place] [facility] [address] [id number] [place] [address] Feb, [facility] [place] [facility] [address] [id number] [place] [address] 30 Jan, 2012 [facility] [address] [id number] [place] [address] 07 Nov, 2011 [facility] [place] [facility] [address] [id number] [place] [address] Nov, [facility] [place] [facility] [address] [id number] [place] [address] 05 Nov, 2011 [facility] [place] [facility] [address] [id number] [place] [address] 30 Sep, 2011 [facility] [place] [facility] [address] [id number] [place] [address] Sep, [facility] [place] [facility] [address] [id number] [place] [address] Sep, [facility] [place] [facility] [address] [id number] [place] [address] Aug, [facility] [place] [facility] [address] [id number] [place] [address] Aug, [facility] [place] [facility] [address] [id number] [place] [address] Jul, [facility] [place] [facility] [address] [id number] [place] [address] Jul, [facility] [place] [facility] [address] [id number] [place] [address] Jun, [facility] [place] [facility] [address] [id number] [place] [address] Jun, [facility] [place] [facility] [address] [id number] [place] [address] May, [facility] [place] [facility] [address] [id number] [place] [address] May, [facility] [place] [facility] [address] [id number] [place] [address] May, [facility] [place] [facility] [address] [id number] [place] [address] 14 May, 2011 [facility] [address] [id number] [place] 14 May, 2011 [facility] [place] [facility] [address] [id number] [place] [address]- [address]61 23 Apr, 2011 [facility] [place] [facility] [address] [id number] [place] [address] Aug, [facility] [place] [facility] [address] [id number] [place] [address] 18 Jul, 2010 [facility] [place] [facility] [address] [id number] [place] [address] Apr, [facility] [place] [facility] [address] [id number] [place] [address] Apr, [facility] [place] [facility] [address] [id number] [place] [address] Apr, [facility] [place] [facility] [address] [id number] [place] [address] Mar, [facility] [place] [facility] [address] [id number] [place] [address] Jan, [facility] [place] [facility] [address] [facility] [id number] [place] [address] 16 Sep, 2009 [facility] [place] [facility] [address] [id number] [place] [address] Jun, [facility] [place] [facility] [address] [id number] [address] 29 May, 2009 [facility] [place] [facility] [address] [id number] [place] [address] May, [facility] [place] [facility] [address] [id number] [place] [address] May, [facility] [place] [facility] [address] [id number] [address] 29 Mar, 2009 [facility] [place] [facility] [address] [facility] [id number] [place] [address] Feb, [facility] [address] [facility] [id number] [address] Nov, [facility] [address] [facility] [id number] [place] [address] Aug, IMMUNIZATIONS No Known Immunizations SOCIAL HISTORY Never Assessed REASON FOR VISIT IPro start PLAN OF CARE VITAL SIGNS MEDICATIONS Unknown [...] finger release Hospitalization History DKA at in [place] September 2016
--- OUTSIDE RECORDS SUMMARY | 2018-06-01 16:25 | XMS REPORT ---
Author Author EUGENIO BELTRAN [facility] Address [address] [place] [address] Care Team Providers Care Egg Candler Name Role Phone EUGENIO BELTRAN Unavailable PROBLEMS Type Condition ICD9-CM Code [id number] Code Onset Dates Condition Status SNOMED Code Problem Dysthymia F34.1 Active 93856022 Problem Rheumatoid arthritis M06.9 Active 28641767 Problem Hypothyroid E03.9 Active 14843366 Problem Primary osteoarthritis involving multiple joints M15.0 Active 713439199 Problem History of breast cancer Z85.3 Active 252791455 Problem Diabetes E11.9 Active 05448637 ALLERGIES No Information SOCIAL HISTORY Never Assessed PLAN OF CARE VITAL SIGNS MEDICATIONS Medication Instructions Dosage Frequency Start Date End Date Duration Status Gabapentin 300 MG Orally 2 times a day 1 capsule 12h Dec, 30 Active RESULTS No Results PROCEDURES No Known procedures IMMUNIZATIONS No Known Immunizations MEDICAL (GENERAL) HISTORY Type Description Date Medical History DM Medical History Cholecystectomy Medical History Breast Cancer 04/2012 Surgical History post cholecystectomy Surgical History Hysterectomy Surgical History Masectomy Surgical History section x 3 Surgical History carpal tunnel release bilateral Surgical History bilateral trigger finger release Hospitalization History [place]KA at in [place] September 2016
--- OUTSIDE RECORDS SUMMARY | 2018-06-01 16:25 | XMS REPORT ---
Author Author EUGENIO BELTRAN Organization [facility] Address [address] [place] [address] Care Team Providers Care Tassel Maker Name Role Phone EUGENIO BELTRAN Unavailable PROBLEMS Type Condition ICD9-CM Code SOC42-HX Code Onset Dates Condition Status SNOMED Code Problem Dysthymia F34.1 Active 91411359 Problem Rheumatoid arthritis M06.9 Active 66808435 Problem Hypothyroid E03.9 Active 92112670 Problem Primary osteoarthritis involving multiple joints M15.0 Active 775161015 Problem History of breast cancer Z85.3 Active 439035419 Problem Diabetes E11.9 Active 23612220 ALLERGIES No Information ENCOUNTERS Encounter Location Date Diagnosis [place] [id number] [place] [address] 07426- 4511 Sep, Diabetes E11.9 [facility] [id number] [place] [address] 82275- 4497 Sep, [facility] [id number] [place] [address] 40060- 1522 Aug, [facility] [id number] [place] [address] 00528- 5039 Jul, [facility] [id number] [place] [address] 30754- 1783 Jul, [facility] [id number] [place] [address] 23877- 1946 Jul, [facility] [id number] [place] [address] 66405- 3360 Jul, Diabetes E11.9 and Dysthymia F34.1 [facility] [id number] [place] [address] 09204- 1607 Jul, [facility] [address] [address] 6114 Jun, Callus L84 and Diabetes E11.9 [facility] [id number] [place] [address] 16949- 3851 May, [facility] [id number] [place] [address] 23596- 7264 Apr, [facility] [id number] [place] [address] 81015- 2484 Apr, [facility] [id number] [place] [address] 64224- 2363 Apr, Diabetes E11.9 ; Hypothyroid E03.9 ; Dysthymia F34.1 ; Tobacco abuse Z72.0 ; Colon cancer screening Z12.11 and Encounter for immunization Z23 [facility] [id number] [place] [address] 35898- 6349 Dec, [facility] [id number] [place] [address] 46091- 2455 Dec, [facility] [id number] [place] [address] 04172- 6641 Dec, Hypothyroid E03.9 and Diabetes E11.9 [facility] [id number] [place] [address] 58942- 4301 Nov, [facility] [id number] [place] [address] 90329- 7412 Nov, [facility] [id number] [place] [address] 56234- 5475 Nov, [facility] [id number] [place] [address] 32749- 9395 Nov, Hypothyroid E03.9 [facility] [id number] [address]- 3939 October, Hypothyroid E03.9 [facility] [address] [address]- 1011 October, Diabetes E11.9 [facility] [id number] [place] [address] 44284- 9695 Aug, Hypothyroid E03.9 [facility] [address] [address]- 2291 Aug, Hypothyroid E03.9 [facility] [id number] [place] [address] 31081- 5897 Apr, Hypothyroid E03.9 [facility] [id number] [place] [address] 02510- 2793 Apr, Diabetes E11.9 and Hypothyroid E03.9 [facility] [id number] [place] [address] 22951- 5681 Mar, Encounter for immunization Z23 [facility] [id number] [place] [address] 76897- 9504 Feb, Diabetes E11.9 [facility] [id number] [place] [address] 88206- 4878 Jan, [facility] [id number] [place] [address] 49832- 6287 Jan, [facility] [address] [address]- 6286 Jan, Diabetes E11.9 [facility] [address] [address]- 8160 Dec, Trigger middle finger of right hand M65.331 ; Trigger finger of right thumb M65.311 ; Trigger finger of left thumb M65.312 and Trigger ring finger of left hand M65.342 [facility] [address] [address]- 5419 Dec, [facility] [address], [place] [address]- 2548 Dec, Hypothyroid E03.9 [facility] [address] [id number] [place] [address]- 6791 Nov, [facility] [address] [facility] [address] [facility] [id number] [place] [address]- 4097 October, [facility] [address] [facility] [id number] [place] [address]- 5956 October, Hypothyroid E03.9 [facility] [address] [facility] [id number] [place] [address]- 1422 October, [facility] [address] [facility] [id number] [place] [address]- 7650 Sep, Hypothyroid E03.9 and Diabetes E11.9 [facility] [address] [facility] [id number] [place] [address]- 9276 Sep, Diabetes E11.9 and Hypothyroid E03.9 [facility] [address] [facility] [id number] [place] [address]- 4068 Sep, [facility] [id number] [place] [address]- 1109 Aug, [facility] [address] [facility] [id number] [place] [address]- 7347 Aug, [facility] [address] [facility] [id number] [place] [address]- 6470 Aug, [facility] [address] [facility] [id number] [place] [address]- 2693 Aug, [facility] [address] [facility] [id number] [place] 1524 Aug, [facility] [address] [facility] [id number] [place] 9102 Jul, [facility] [address] [facility] [id number] [place] [address]- 5516 Jun, [facility] [address] [facility] [id number], [place] [address]- 3429 Jun, Rheumatoid arthritis involving multiple sites with positive rheumatoid factor M05.79 [facility] [address] [facility] [id number], [place] [address]- 6250 Jun, [facility] [address] [facility] [id number] [address]- 9643 May, [facility] [address] [address]- 2731 May, Rheumatoid arthritis involving multiple sites with positive rheumatoid factor M05.79 [facility] [id number] 7713 May, [facility] [address] [place] [address] 68058- 8916 May, Rheumatoid arthritis involving multiple sites with positive rheumatoid factor M05.79 [place] [address] [place] [address] 64833- 0862 Apr, Diabetes E11.9 ; Long-term insulin use Z79.4 ; Insulin pump in place Z96.41 ; Arthralgia of hand, unspecified laterality M79.643 and History of breast cancer Z85.3 [place] [id number] [address]- 8785 Apr, [place] [id number] [address]- 2145 Mar, [facility] [id number] [address]- 5718 Mar, [facility] [id number] [address]- 7669 Feb, UTI (urinary tract infection) 599.0 [place] [id number] 4515 Feb, UTI (urinary tract infection) 599.0 [facility] [id number] [address]- 1173 Feb, UTI (urinary tract infection) 599.0 [facility] [address] [id number] [address]- 6367 28 Feb, 2015 UTI (urinary tract infection) 599.0 [facility] [address] [id number], [place] [address]- 0988 22 Feb, 2015 [facility] [address] [id number], [place] [address]- 0353 17 Feb, 2015 [facility] [address] [id number], [place] [address]- 8966 15 Feb, 2015 [facility] [address] [id number], [place] [address]- 5669 14 Feb, 2015 [facility] [address] [facility] [id number], [place] [address]- 9827 Nov, Trigger finger of right hand 727.03 [facility] [address] [id number], [place] [address]- 9589 Sep, [facility] [address] [facility] [id number], [place] [address]- 9372 Sep, [facility] [address] [facility] [id number], [place] [address]- 6821 Aug, [facility] [address] [facility] [id number], [place] [address]- 5089 Aug, [facility] [address] [id number], [place] [address]- 5412 Aug, [facility] [address] [id number], [place] [address]- 6273 Aug, [facility] [address] [id number], [place] [address]- 7731 Jul, [facility] [address] [id number], [place] [address]- 7636 Jul, [facility] [address] [id number], [place] [address]- 1099 Jul, [facility] [place] [facility] [address] [id number] [place] [address]- 4511 Jul, [facility] [place] [facility] [address] [id number] [place] [address]- 7548 14 Jun, 2014 [facility] [place] [facility] [address] [id number] [place] [address]- 5177 Jun, [facility] [place] [facility] [address] [id number] [place] [address]- 6483 18 May, 2014 [facility] [place] [facility] [address] [id number] [place] [address]- 9670 May, [facility] [place] [facility] [address] [id number] [place] [address]- 9164 May, [facility] [place] [facility] [address] [id number] [place] [address]- 9115 May, [facility] [place] [facility] [address] [id number] [place] [address]- 6998 Apr, [facility] [place] [facility] [address] [id number] [place] [address]- 7940 Apr, [facility] [place] [facility] [address] [id number] [place] [address]- 4822 Mar, [facility] [place] [facility] [address] [id number], [place] [address]- 7245 Mar, [facility] [place] [facility] [address] [id number], [place] [address]- 2950 Mar, [facility] [place] [facility] [address] [id number] [place] [address]- 4103 Mar, [facility] [place] [facility] [address] [id number], [place] [address]- 8036 Mar, [facility] [place] [facility] [address] [id number] [place] [address]- 3623 Mar, [facility] [place] [facility] [address] [id number] [place] [address]- 9925 07 Mar, 2013 [facility] [place] [facility] [address] [id number] [place] [address]- 1052 07 Mar, 2013 [facility] [place] [facility] [address] [id number] [place] [address]- 5836 25 Feb, 2013 [facility] [place] [facility] [address] [id number] [place] [address]- 4096 25 Feb, 2013 [facility] [place] [facility] [address] [id number] [place] [address]- 8608 18 Feb, 2013 [facility] [place] [facility] [address] [id number] [place] [address]- 3939 18 Feb, 2013 [facility] [place] [facility] [address] [id number] [place] [address]- 0495 10 Feb, 2013 [facility] [place] [facility] [address] [id number] [place] [address]- 7759 10 Feb, 2013 [facility] [place] [facility] [address] [id number] [place] [address]- 9279 05 Sep, 2013 [facility] [place] [facility] [address] [id number] [place] [address]- 2544 05 Feb, 2013 [facility] [place] [facility] [address] [id number] [place] [address]- 0016 05 Sep, 2013 [facility] [place] [facility] [address] [id number] [place] [address]- 2547 05 Sep, 2013 [facility] [place] [facility] [address] [id number] [place] [address]- 2549 03 Feb, 2013 [facility] [place] [facility] [address] [id number] [place] [address]- 2547 Feb, 2013 [facility] [place] [facility] [address] [id number] [place] [address]- 9258 Jan, [facility] [place] [facility] [address] [id number] [place] [address]- 7956 Jan, [facility] [place] [facility] [address] [id number] [place] [address]- 1750 Jan, [facility] [place] [facility] [address] [id number] [place] [address]- 8829 Jan, [facility] [place] [facility] [address] [id number] [place] [address]- 6017 Dec, [facility] [place] [facility] [address] [id number] [place] [address]- 9327 Dec, [facility] [place] [facility] [address] [id number] [place] [address]- 0734 Dec, [facility] [place] [facility] [address] [id number] [place] [address]- 4692 Dec, [facility] [place] [facility] [address] [id number] [place] [address]- 8759 Dec, [facility] [place] [facility] [address] [id number] [place] [address]- 0464 Dec, [facility] [place] [facility] [address] [id number] [place] [address]- 0492 Dec, [facility] [place] [facility] [address] [id number] [place] [address]- 2194 Dec, [facility] [place] [facility] [address] [id number] [place] [address]- 7766 Dec, [facility] [place] [facility] [address] [id number] [place] [address]- 2983 Dec, [facility] [place] [facility] [address] [id number] [place] [address]- 7246 Dec, [facility] [place] [facility] [address] [id number] [place] [address]- 1788 Dec, [facility] [place] [facility] [address] [id number] [place] [address]- 6824 October, [facility] [place] [facility] [address] [id number] [place] [address]- 2621 October, [facility] [place] [facility] [address] [id number] [place] [address]- 2260 Aug, [facility] [place] [facility] [address] [id number] [place] [address]- 6141 19 Aug, 2013 [facility] [place] [facility] [address] [id number] [place] [address]- 1116 10 Aug, 2013 [facility] [place] [facility] [address] [id number] [place] [address]- 4158 10 Aug, 2013 [facility] [place] [facility] [address] [id number] [place] [address]- 5925 Jun, [facility] [place] [facility] [address] [id number] [place] [address]- 0886 31 Jun, 2013 [facility] [place] [facility] [address] [id number] [place] [address]- 2934 15 Jun, 2013 [facility] [place] [facility] [address] [id number] [place] [address]- 3878 15 Jun, 2013 [facility] [place] [facility] [address] [id number] [place] [address]- 5860 14 Jun, 2013 [facility] [place] [facility] [address] [id number] [place] [address]- 2611 14 Jun, 2013 [facility] [place] [facility] [address] [id number] [place] [address]- 2587 14 Jun, 2013 [facility] [place] [facility] [address] [id number] [place] [address]- 2680 14 Jun, 2013 [facility] [place] [facility] [address] [id number] [place] [address]- 8575 May, [facility] [place] [facility] [address] [id number] [place] [address]- 2802 May, [facility] [place] [facility] [address] [id number] [place] [address]- 7597 Apr, [facility] [place] [facility] [address] [id number] [place] [address]- 5247 Apr, [facility] [place] [facility] [address] [id number] [place] [address]- 6055 15 Apr, 2013 [facility] [place] [facility] [address] [id number] [place] [address]- 9675 Apr, [facility] [place] [facility] [address] [id number] [place] [address]- 4761 Apr, [facility] [place] [facility] [address] [id number] [place] [address]- 1685 Mar, [facility] [place] [facility] [address] [id number] [place] [address]- 4741 Mar, [facility] [place] [facility] [address] [id number] [place] [address]- 9498 Mar, [facility] [place] [facility] [address] [id number] [place] [address]- 6249 Mar, [facility] [place] [facility] [address] [id number] [place] [address]- 1117 Feb, [facility] [place] [facility] [address] [id number] [place] [address]- 2308 Jan, [facility] [place] [facility] [address] [id number] [place] [address]- 3698 Dec, [facility] [place] [facility] [address] [id number] [place] [address]- 8751 Dec, [facility] [place] [facility] [address] [id number] [place] [address]- 5589 Dec, [facility] [place] [facility] [address] [id number] [place] [address]- 8934 Dec, [facility] [place] [facility] [address] [id number] [place] [address]- 8293 Nov, [facility] [place] [facility] [address] [id number] [place] [address]- 6966 October, [facility] [address] [id number] [place] [address]- 0582 October, [facility] [address] [id number] [place] [address]- 9840 October, [facility] [address] [id number] [place] [address]- 5892 October, [facility] [address] [id number] [place] [address]- 4352 October, [facility] [address] [id number] [place] [address]- 4496 October, [facility] [address] [id number] [place] [address]- 5727 October, [facility] [address] [id number] [place] [address]- 6033 October, [facility] [address] [id number] [place] [address]- 1759 Sep, [facility] [address] [id number] [place] [address]- 8962 Sep, [facility] [place] [facility] [address] [id number] [place] [address]- 5358 Sep, [facility] [address] [id number] [place] [address]- 3084 31 Aug, 2012 [facility] [place] [facility] [address] [id number] [place] [address]- 7160 29 Aug, 2012 [facility] [place] [facility] [address] [id number] [place] [address]- 2502 28 Aug, 2012 [facility] [place] [facility] [address] [id number] [place] [address]- 8216 27 Aug, 2012 [facility] [place] [facility] [address] [id number] [place] [address] 14 Aug, 2012 [facility] [place] [facility] [address] [id number] [place] [address] Aug, [facility] [address] [id number] [place] [address] Jul, [facility] [place] [facility] [address] [id number] [place] [address] Jun, [facility] [address] [id number] [place] [address] Mar, [facility] [place] [facility] [address] [id number] [place] [address] 77[address] Mar, [facility] [address] [id number] [place] [address], [place] [address]- [address] Mar, [facility] [place] [facility] [address] [id number] [place] [address] Mar, [facility] [place] [facility] [address] [id number] [place] [address] Mar, [facility] [address] [id number] [place] [address] Feb, [facility] [place] [facility] [address] [id number] [place] [address] 24 Feb, 2012 [facility] [address] [id number] [place] [address] Feb, [facility] [place] [facility] [address] [id number] [place] [address] 254 Feb, [facility] [place] [facility] [address] [id number] [place] [address]- [address] Feb, [facility] [place] [facility] [address] [id number] [place] [address] Jan, [facility] [place] [facility] [address] [id number] [place] [address] Nov, [facility] [place] [facility] [address] [facility] [id number] [place] [address] Nov, [facility] [address] [id number] [place] [address]- 2016 05 Nov, 2011 [facility] [place] [facility] [address] [id number] [place] [address] 30 Sep, 2011 [facility] [place] [facility] [address] [id number] [place] [address]- [address] Sep, [facility] [place] [facility] [address] [id number] [place] [address] Sep, [facility] [address] [id number] [place] [address] 39[address] Aug, [facility] [place] [facility] [address] [id number] [place] [address]- [address] Aug, [facility] [address] [id number] [place] [address]- [address] 08 Jul, 2011 [facility] [address] [id number] [place] [address]- 4756 Jul, [facility] [address] [id number] [place] [address] 4776 Jun, [facility] [address] [id number] [place] [address]- [address] Jun, [facility] [address] [id number] [place] [address] 1566 May, [facility] [place] [facility] [address] [id number] [place] [address]- [address] May, [facility] [place] [facility] [address] [id number] [place] [address] 114[address] 20 May, 2011 [facility] [place] [facility] [address] [id number] [place] [address] 14 May, 2011 [facility] [place] [facility] [address] [id number] [place] [address]- [address] 14 May, 2011 [facility] [place] [facility] [address] [id number] [place] [address]- [address] Apr, [facility] [address] [id number] [place] [address]- 379[address] Aug, [facility] [place] [facility] [address] [id number] [place] [address]- [address]687 Jul, [facility] [place] [facility] [address] [id number] [place] [address]- [address] Apr, [facility] [place] [facility] [address] [id number] [place] [address]- [address] Apr, [facility] [place] [facility] [address] [id number] [place] [address]- [address] Apr, [facility] [place] [facility] [address] [id number] [place] [address]- [address] 14 Mar, 2010 [facility] [place] [facility] [address] [id number] [place] [address] Jan, [facility] [place] [facility] [address] [id number] [place] [address]- [address] 16 Sep, 2009 [facility] [place] [facility] [address] [id number] [place] [address]- [address] Jun, [facility] [place] [facility] [address] [facility] [id number] [place] [address]- [address] May, [facility] [place] [facility] [address] [id number] [place] [address]- 89[address] 07 May, 2009 [facility] [place] [facility] [address] [id number] [address] May, [facility] [place] [facility] [address] [id number], [place] [address] 29 Mar, 2009 [facility] [place] [facility] [address] [id number] [place] [address] 5319 10 Feb, 2009 [facility] [place] [facility] [address] [id number], [place] [address] 11 Nov, 2008 [facility] [place] [facility] [address] [facility] [id number] [place] [address] Aug, IMMUNIZATIONS No Known Immunizations SOCIAL HISTORY Never Assessed REASON FOR VISIT Medication refill request PLAN OF CARE VITAL SIGNS MEDICATIONS Medication Instructions Dosage Frequency Start Date End Date Duration Status Gabapentin 300 MG Orally 2 times a day 1 capsule 12h 90 Active Levothyroxine Sodium 200 MCG Orally Once a day 1 tablet 24h 90 days Active NovoLog 100 UNIT/ML Subcutaneous per pump as directed Feb, Active RESULTS No Results PROCEDURES No Known procedures INSTRUCTIONS MEDICATIONS ADMINISTERED No Known Medications MEDICAL (GENERAL) HISTORY Type Description Date Medical History DM Medical History Cholecystectomy Medical History Breast Cancer 04/2012 Surgical History post cholecystectomy Surgical History Hysterectomy Surgical History Masectomy Surgical History section x 3 Surgical History carpal tunnel release bilateral Surgical History bilateral trigger finger release Hospitalization History DKA at in [place] September 2016
--- OUTSIDE RECORDS SUMMARY | 2018-06-01 16:25 | XMS REPORT ---
Author Author EUGENIO BELTRAN Organization [facility] Address [address] [place] [address] Care Team Providers Care Polisher And Buffer Name Role Phone EUGENIO BELTRAN Unavailable PROBLEMS Type Condition ICD9-CM Code TCQ30-VH Code Onset Dates Condition Status SNOMED Code Problem Dysthymia F34.1 Active 92114270 Problem Rheumatoid arthritis M06.9 Active 90484653 Problem Hypothyroid E03.9 Active 08751677 Problem Primary osteoarthritis involving multiple joints M15.0 Active 780677428 Problem History of breast cancer Z85.3 Active 489402541 Problem Diabetes E11.9 Active [id number] ALLERGIES No Information ENCOUNTERS Encounter Location Date Diagnosis [facility] [id number] [place] [address] 70863- 6606 Jan, [facility] [id number] [place] [address] 28055- 8425 Dec, [facility] [id number] [place] [address] 21896- 5247 Sep, Diabetes E11.9 [facility] [id number] [place] [address] 00420- 9900 Sep, [facility] [id number] [place] [address] 56790- 9550 Aug, [facility] [id number] [place] [address] 36619- 8409 Jul, [facility] [id number] [place] [address] 31899- 3564 Jul, [facility] [id number] [place] [address] 98486- 6178 Jul, [facility] [id number] [place] [address] 12663- 6560 Jul, Diabetes E11.9 and Dysthymia F34.1 [facility] [address] 27097- 1571 Jul, [facility] [id number] [place] [address] 14129- 4759 Jun, Callus L84 and Diabetes E11.9 [facility] [address] 93777- 4731 May, [facility] [address] 13612- 8387 Apr, [facility] [address] 72115- 9870 Apr, [facility] [address] 58759- 4201 Apr, Diabetes E11.9 ; Hypothyroid E03.9 ; Dysthymia F34.1 ; Tobacco abuse Z72.0 ; Colon cancer screening Z12.11 and Encounter for immunization Z23 [facility] [id number] [place] [address] 12504- 6424 Dec, [facility] [id number] [place] [address] 36974- 2020 Dec, [facility] [id number] [place] [address] 09267- 5891 Dec, Hypothyroid E03.9 and Diabetes E11.9 [facility] [id number] [place] [address] 45186- 3287 Nov, [facility] [address] 42896- 0431 Nov, [facility] [id number] [place] [address] 14759- 1930 Nov, [facility] [address] 43057- 1059 Nov, Hypothyroid E03.9 [facility] [address] [address]- 4106 October, Hypothyroid E03.9 [facility] [address] [address]- 8676 October, Diabetes E11.9 [facility] [id number] [place] [address] 94564- 3542 Aug, Hypothyroid E03.9 [facility] [address] [address]- 7745 Aug, Hypothyroid E03.9 [facility] [id number] [place] [address] 98550- 1029 Apr, Hypothyroid E03.9 [facility] [id number] [place] [address] 55863- 0067 Apr, Diabetes E11.9 and Hypothyroid E03.9 [facility] [address] [address]- 8053 Mar, Encounter for immunization Z23 [facility] [id number] [place] [address] 41417- 4966 Feb, Diabetes E11.9 [facility] [address] [address]- 6542 Jan, [facility] [id number] [place] [address] 46098- 1959 Jan, [facility] [id number] [address]- 0829 Jan, Diabetes E11.9 [facility] [address] 9155 Dec, Trigger middle finger of right hand M65.331 ; Trigger finger of right thumb M65.311 ; Trigger finger of left thumb M65.312 and Trigger ring finger of left hand M65.342 [facility] [address] [id number] [place] [address]- 0156 Dec, [facility] [address] [facility] [id number] [place] [address]- 0049 Dec, Hypothyroid E03.9 [facility] [address] [facility] [id number] [place] [address]- 0018 Nov, [facility] [address] [facility] [id number] [place] [address]- 7524 October, [facility] [address] [facility] [id number] [place] [address]- 6820 October, Hypothyroid E03.9 [facility] [address] [facility] [id number] [place] [address]- 5999 October, [facility] [address] [facility] [id number] [place] [address]- 3673 Sep, Hypothyroid E03.9 and Diabetes E11.9 [facility] [address] [facility] [id number] [place] [address]- 6814 Sep, Diabetes E11.9 and Hypothyroid E03.9 [facility] [address] [facility] [id number] [place] [address]- 1463 Sep, [facility] [address] [facility] [id number] [place] [address]- 2246 Aug, [facility] [address] [facility] [id number] [place] [address]- 8794 Aug, [facility] [address] [facility] [id number] [place] [address]- 5351 Aug, [facility] [address] [facility] [id number] [place] [address]- 0176 Aug, [facility] [address] [facility] [id number] [place] [address]- 1997 08 Aug, 2015 [facility] [address] [facility] [id number] [place] [address]- 5093 Jul, [facility] [id number] [address]- 4076 Jun, [facility] [id number] [place] [address] 020449- 6855 Jun, Rheumatoid arthritis involving multiple sites with positive rheumatoid factor M05.79 [facility] [id number] [place] [address] 67414- 9016 Jun, [facility] [id number] [place] [address] 66691- 6803 May, [facility] [id number] [place] [address] 355407- 4288 May, Rheumatoid arthritis involving multiple sites with positive rheumatoid factor M05.79 [id number] [place] [address] 93998- 8462 May, [facility] [id number] [place] [address] 20414- 3245 May, Rheumatoid arthritis involving multiple sites with positive rheumatoid factor M05.79 [facility] [address] [place] [address] 994061- 4971 Apr, Diabetes E11.9 ; Long-term insulin use Z79.4 ; Insulin pump in place Z96.41 ; Arthralgia of hand, unspecified laterality M79.643 and History of breast cancer Z85.3 [facility] [address] [place] [address] 35845- 9726 Apr, [facility] [address] [address]- 0383 Mar, [facility] [id number] [place] [address] 295273- 2749 Mar, [facility] [address] [address]- 1569 Feb, UTI (urinary tract infection) 599.0 [facility] [id number] [address]- 6383 28 Feb, 2015 UTI (urinary tract infection) 599.0 [facility] [address] [id number] [place] [address]- 5106 28 Feb, 2015 UTI (urinary tract infection) 599.0 [facility] [address] [id number] [address] 2546 28 Feb, 2014 UTI (urinary tract infection) 599.0 [facility] [address] [id number] [address] 2546 22 Feb, 2015 [facility] [address] [id number] [address]- 8800 17 Feb, 2015 [facility] [address] [id number] [address]- 5702 15 Feb, 2015 [facility] [address] [id number] [address]- 6080 14 Feb, 2015 [facility] [address] [id number], [place] [address]- 0404 11 Nov, 2014 Trigger finger of right hand 727.03 [facility] [address] [id number] [address]- 5662 14 Sep, 2014 [facility] [address] [id number], [place] [address]- 1903 13 Sep, 2014 [facility] [address] [id number] [address]- 3754 03 Aug, 2014 [facility] [address] [id number], [place] [address]- 5441 Aug, [facility] [address] [id number], [place] [address]- 1503 02 Aug, 2014 [facility] [address] [id number] [address]- 8801 02 Aug, 2014 [facility] [address] [id number] [address]- 2254 Jul, 2014 [facility] [place] [facility] [address] [id number] [place] [address]- 8063 Jul, [facility] [place] [facility] [address] [id number] [place] [address]- 0358 Jul, [facility] [place] [facility] [address] [id number] [place] [address]- 1761 Jul, [facility] [place] [facility] [address] [id number] [place] [address]- 9804 14 Jun, 2014 [facility] [place] [facility] [address] [id number] [place] [address]- 7919 14 Jun, 2014 [facility] [place] [facility] [address] [id number] [place] [address]- 0696 18 May, 2014 [facility] [place] [facility] [address] [id number] [place] [address]- 6735 18 May, 2014 [facility] [place] [facility] [address] [id number] [place] [address]- 6643 18 May, 2014 [facility] [place] [facility] [address] [id number] [place] [address]- 1526 18 May, 2014 [facility] [place] [facility] [address] [id number] [place] [address]- 9938 Apr, [facility] [place] [facility] [address] [id number], [place] [address]- 5726 Apr, [facility] [place] [facility] [address] [id number], [place] [address]- 7877 14 Mar, 2014 [facility] [place] [facility] [address] [id number] [place] [address]- 4546 14 Mar, 2014 [facility] [place] [facility] [address] [id number] [place] [address]- 4484 14 Mar, 2014 [facility] [place] [facility] [address] [id number] [place] [address]- 2458 14 Mar, 2014 [facility] [place] [facility] [address] [id number] [place] [address]- 2443 09 Mar, 2013 [facility] [place] [facility] [address] [id number] [place] [address]- 8016 09 Mar, 2013 [facility] [place] [facility] [address] [id number] [place] [address]- 7316 Mar, 2013 [facility] [place] [facility] [address] [id number] [place] [address]- 4659 07 Mar, 2013 [facility] [place] [facility] [address] [id number] [place] [address]- 6664 25 Sep, 2013 [facility] [place] [facility] [address] [id number] [place] [address]- 3098 25 Sep, 2013 [facility] [place] [facility] [address] [id number] [place] [address]- 2784 18 Sep, 2013 [facility] [place] [facility] [address] [id number] [place] [address]- 1357 18 Sep, 2013 [facility] [place] [facility] [address] [id number] [place] [address]- 2541 10 Sep, 2013 [facility] [place] [facility] [address] [id number] [place] [address]- 2543 10 Sep, 2013 [facility] [place] [facility] [address] [id number] [place] [address]- 3755 05 Sep, 2013 [facility] [place] [facility] [address] [id number] [place] [address]- 2549 05 Sep, 2013 [facility] [place] [facility] [address] [id number] [place] [address] 2543 05 Sep, 2013 [facility] [place] [facility] [address] [id number] [place] [address] 2546 05 Sep, 2013 [facility] [place] [facility] [address] [id number] [place] [address]- 2542 03 Sep, 2013 [facility] [place] [facility] [address] [id number] [place] [address]- 1055 Feb, [facility] [place] [facility] [address] [id number] [place] [address]- 7623 Jan, [facility] [place] [facility] [address] [id number] [place] [address]- 5650 Jan, [facility] [place] [facility] [address] [id number] [place] [address]- 3519 Jan, [facility] [place] [facility] [address] [id number] [place] [address]- 9001 Jan, [facility] [place] [facility] [address] [id number] [place] [address]- 4503 Dec, [facility] [place] [facility] [address] [id number] [place] [address]- 7649 Dec, [facility] [place] [facility] [address] [id number] [place] [address]- 5108 Dec, [facility] [place] [facility] [address] [id number] [place] [address]- 7768 Dec, [facility] [place] [facility] [address] [id number] [place] [address]- 5213 Dec, [facility] [place] [facility] [address] [id number] [place] [address]- 4493 Dec, [facility] [place] [facility] [address] [id number] [place] [address]- 8158 Dec, [facility] [place] [facility] [address] [id number] [place] [address]- 7658 Dec, [facility] [place] [facility] [address] [id number] [place] [address]- 9841 Dec, [facility] [place] [facility] [address] [id number] [place] [address]- 4206 Dec, [facility] [place] [facility] [address] [id number] [place] [address]- 3893 Dec, [facility] [place] [facility] [address] [id number] [place] [address]- 0469 07 Dec, 2013 [facility] [place] [facility] [address] [id number] [place] [address]- 8248 October, [facility] [place] [facility] [address] [id number] [place] [address]- 9870 October, [facility] [place] [facility] [address] [id number] [place] [address]- 4191 Aug, [facility] [place] [facility] [address] [id number] [place] [address]- 9581 Aug, [facility] [place] [facility] [address] [id number] [place] [address]- 7975 Aug, [facility] [place] [facility] [address] [id number] [place] [address]- 6088 Aug, [facility] [place] [facility] [address] [id number] [place] [address]- 6671 Jun, [facility] [place] [facility] [address] [id number] [place] [address]- 6370 Jun, [facility] [place] [facility] [address] [id number] [place] [address]- 9986 Jun, [facility] [place] [facility] [address] [id number] [place] [address]- 1418 15 Jun, 2013 [facility] [place] [facility] [address] [id number] [place] [address]- 0162 14 Jun, 2013 [facility] [place] [facility] [address] [id number] [place] [address]- 3098 14 Jun, 2013 [facility] [place] [facility] [address] [id number] [place] [address]- 1555 Jun, [facility] [place] [facility] [address] [id number] [place] [address]- 9902 Jun, [facility] [place] [facility] [address] [id number] [place] [address]- 2985 May, [facility] [place] [facility] [address] [id number] [place] [address]- 7779 May, [facility] [place] [facility] [address] [id number] [place] [address]- 2961 Apr, [facility] [place] [facility] [address] [id number] [place] [address]- 9911 Apr, [facility] [place] [facility] [address] [id number] [place] [address]- 9090 15 Apr, 2013 [facility] [place] [facility] [address] [id number] [place] [address]- 2051 Apr, [facility] [place] [facility] [address] [id number] [place] [address]- 7258 Apr, [facility] [place] [facility] [address] [id number] [place] [address]- 3075 Mar, [facility] [place] [facility] [address] [id number] [place] [address]- 2821 Mar, [facility] [place] [facility] [address] [id number] [place] [address]- 3757 Mar, [facility] [place] [facility] [address] [id number] [place] [address]- 1492 Mar, [facility] [place] [facility] [address] [id number] [place] [address]- 1721 Feb, [facility] [place] [facility] [address] [id number] [place] [address]- 5569 Jan, [facility] [place] [facility] [address] [id number] [place] [address]- 5159 Dec, [facility] [place] [facility] [address] [id number] [place] [address]- 1597 Dec, [facility] [place] [facility] [address] [id number] [place] [address]- 3251 Dec, [facility] [place] [facility] [address] [id number] [place] [address]- 2320 Dec, [facility] [address] [id number] [place] [address]- 3294 Nov, [facility] [address] [id number] [place] [address]- 7006 October, [facility] [address] [id number] [place] [address]- 2219 October, [facility] [address] [id number] [place] [address]- 2145 October, [facility] [address] [id number] [place] [address]- 3323 October, [facility] [address] [id number] [place] [address]- 9276 October, [facility] [address] [id number] [place] [address]- 5786 October, [facility] [address] [id number] [place] [address]- 8450 October, [facility] [address] [id number] [place] [address]- 4942 October, [facility] [address] [id number] [place] [address]- 5685 Sep, [facility] [address] [id number] [place] [address]- 2866 Sep, [facility] [place] [facility] [address] [id number] [place] [address]- 2547 Sep, [facility] [place] [facility] [address] [id number] [place] [address]- 2543 Aug, [facility] [place] [facility] [address] [id number] [place] [address]- 7873 Aug, [facility] [place] [facility] [address] [id number] [place] [address]- 9128 Aug, [facility] [place] [facility] [address] [id number] [place] [address]- 8146 27 Aug, 2012 [facility] [address] [id number] [place] [address]- 5896 Aug, [facility] [place] [facility] [address] [id number] [place] [address]- 5771 05 Aug, 2012 [facility] [address] [id number] [place] [address]- 4723 Jul, [facility] [place] [facility] [address] [id number] [place] [address]- 2316 Jun, [facility] [address] [id number] [place] [address]- 4443 Mar, [facility] [address] [id number] [place] [address]- 9281 Mar, [facility] [place] [facility] [address] [id number] [place] [address]- 2172 Mar, [facility] [address] [id number] [place] [address]- 1699 Mar, [facility] [place] [facility] [address] [id number] [place] [address]- 0627 Mar, [facility] [address] [id number] [place] [address]- 7027 25 Feb, 2012 [facility] [place] [facility] [address] [id number] [place] [address]- 2547 24 Feb, 2012 [facility] [place] [facility] [address] [id number] [place] [address]- 2544 20 Feb, 2012 [facility] [place] [facility] [address] [id number] [place] [address]- 8302 Feb, [facility] [place] [facility] [address] [id number] [place] [address]- 2543 Feb, [facility] [place] [facility] [address] [id number] [place] [address]- 15[address] 30 Jan, 2012 [facility] [address] [id number] [place] [address] 07 Nov, 2011 [facility] [place] [facility] [address] [id number] [place] [address] Nov, [facility] [place] [facility] [address] [id number] [place] [address] 05 Nov, 2011 [facility] [place] [facility] [address] [id number] [place] [address] 30 Sep, 2011 [facility] [place] [facility] [address] [id number] [place] [address] Sep, [facility] [place] [facility] [address] [id number] [place] [id number] Sep, [facility] [place] [facility] [address] [id number] [place] [address] Aug, [facility] [place] [facility] [address] [id number] [place] [address] Aug, [facility] [place] [facility] [address] [id number] [place] [address] Jul, [facility] [place] [facility] [address] [id number] [place] [address] Jul, [facility] [place] [facility] [address] [id number] [place] [address] Jun, [facility] [place] [facility] [address] [id number] [place] [address] Jun, [facility] [place] [facility] [address] [id number] [place] [address] May, [facility] [place] [facility] [address] [id number] [place] [address] May, [facility] [place] [facility] [address] [id number] [place] [address] May, [facility] [place] [facility] [address] [id number] [place] [address] 14 May, 2011 [facility] [address] [id number] [place] [address] 14 May, 2011 [facility] [place] [facility] [address] [id number] [place] [address] 23 Apr, 2011 [facility] [place] [facility] [address] [id number] [place] [address] Aug, [facility] [place] [facility] [address] [id number] [place] [address] 18 Jul, 2010 [facility] [place] [facility] [address] [id number] [place] [address] Apr, [facility] [place] [facility] [address] [id number] [place] [address] Apr, [facility] [place] [facility] [address] [id number] [place] [address] Apr, [facility] [place] [facility] [address] [id number] [place] [address] Mar, [facility] [place] [facility] [address] [id number] [place] [address] Jan, [facility] [place] [facility] [address] [facility] [id number] [place] [address] 16 Sep, 2009 [facility] [place] [facility] [address] [id number] [place] [address] Jun, [facility] [place] [facility] [address] [id number] [address] 29 May, 2009 [facility] [place] [facility] [address] [id number] [place] [address] May, [facility] [place] [facility] [address] [id number] [place] [address] May, [facility] [place] [facility] [address] [id number], [place] [address] 29 Mar, 2009 [facility] [place] [facility] [address] [facility] [id number] [place] [address] Feb, [facility] [address] [facility] [id number][place] [address] Nov, [facility] [address] [facility] [id number] [place] [address] Aug, IMMUNIZATIONS No Known Immunizations SOCIAL HISTORY Never Assessed REASON FOR VISIT ipro request PLAN OF CARE VITAL SIGNS MEDICATIONS Unknown [...] finger release Hospitalization History [facility] at in [place] September 2016
--- OUTSIDE RECORDS SUMMARY | 2018-06-01 16:25 | XMS REPORT ---
Author Author EUGENIO BELTRAN [facility] Address [address] [place] [address] Care Team Providers Care Advanced Manufacturing Consultant Name Role Phone EUGENIO BELTRAN Unavailable PROBLEMS Type Condition ICD9-CM Code CLF05-WH Code Onset Dates Condition Status SNOMED Code Problem Dysthymia F34.1 Active 78468903 Problem Rheumatoid arthritis M06.9 Active 40050098 Problem Hypothyroid E03.9 Active 52222819 Problem Primary osteoarthritis involving multiple joints M15.0 Active 667040663 Problem History of breast cancer Z85.3 Active 572472899 Problem Diabetes E11.9 Active 48805163 ALLERGIES No Information SOCIAL HISTORY Never Assessed PLAN OF CARE VITAL SIGNS MEDICATIONS Medication Instructions Dosage Frequency Start Date End Date Duration Status Levothyroxine Sodium 200 MCG Orally Once a day 1 tablet 24h 60 days Active RESULTS No Results PROCEDURES No Known procedures IMMUNIZATIONS No Known Immunizations MEDICAL (GENERAL) HISTORY Type Description Date Medical History DM Medical History Cholecystectomy Medical History Breast Cancer 04/2012 Surgical History post cholecystectomy Surgical History Hysterectomy Surgical History Masectomy Surgical History section x 3 Surgical History carpal tunnel release bilateral Surgical History bilateral trigger finger release Hospitalization History DKA at in [place] September 2016
--- OUTSIDE RECORDS SUMMARY | 2018-06-01 16:26 | XMS REPORT ---
Author Author EUGENIO BELTRAN [facility] Address [address] [place] [address] Care Team Providers Care Hardware Installation Coordinator Name Role Phone EUGENIO BELTRAN Unavailable PROBLEMS Type Condition ICD9-CM Code ITU77-SC Code Onset Dates Condition Status SNOMED Code Problem Dysthymia F34.1 Active 92210751 Problem Rheumatoid arthritis M06.9 Active 11433730 Problem Hypothyroid E03.9 Active 45743583 Problem Primary osteoarthritis involving multiple joints M15.0 Active 665619684 Problem History of breast cancer Z85.3 Active 783254894 Problem Diabetes E11.9 Active 88842236 ALLERGIES No Information SOCIAL HISTORY Never Assessed PLAN OF CARE VITAL SIGNS MEDICATIONS Unknown [...] finger release Hospitalization History DKA at in [place] September 2016
--- OUTSIDE RECORDS SUMMARY | 2018-06-01 16:26 | XMS REPORT ---
Author Author EUGENIO BELTRAN Organization [facility] Address [address] [place] [address] Care Team Providers Care Mortgage Loan Processing Clerk Name Role Phone EUGENIO BELTRAN Unavailable PROBLEMS Type Condition ICD9-CM Code [id number] Code Onset Dates Condition Status SNOMED Code Problem Dysthymia F34.1 Active 98321918 Problem Rheumatoid arthritis M06.9 Active 59351737 Problem Hypothyroid E03.9 Active 38171995 Problem Primary osteoarthritis involving multiple joints M15.0 Active 522125150 Problem History of breast cancer Z85.3 Active 769186782 Problem Diabetes E11.9 Active 21856225 ALLERGIES Substance Reaction Event Type Date Status Penicillin G Sodium hives Drug Allergy Dec, Active ENCOUNTERS Encounter Location Date Diagnosis [facility] [id number] [place] [address]69- 0575 Sep, [facility] [id number] [place] [address] 70618- 1139 Aug, [facility] [id number] [place] [address] 15118- 7794 Jul, [facility] [id number] [place] [address] 92826- 2176 Jul, [facility] [id number] [place] [address] 09063- 8113 Jul, [facility] [id number] [place] [address] 68879- 3875 Jul, Diabetes E11.9 and Dysthymia F34.1 [facility] [id number] [place] [address] 38158- 9324 Jul, [facility] [address] [id number] [address] 5185 Jun, Callus L84 and Diabetes E11.9 [facility] [id number] [place] [address] 27820- 3858 May, [facility] [id number] [place] [address] 81819- 2019 Apr, [facility] [id number] [place] [address] 21253- 0801 Apr, [facility] [id number] [place] [address] 71784- 3744 Apr, Diabetes E11.9 ; Hypothyroid E03.9 ; Dysthymia F34.1 ; Tobacco abuse Z72.0 ; Colon cancer screening Z12.11 and Encounter for immunization Z23 [facility] [id number] [place] [address] 36180- 6800 Dec, [facility] [id number] [place] [address] 85683- 5309 Dec, [facility] [id number] [place] [address] 01326- 3089 Dec, Hypothyroid E03.9 and Diabetes E11.9 [facility] [id number] [place] [address] 86192- 9825 Nov, [facility] [id number] [place] [address] 89742- 8088 Nov, [facility] [id number] [place] [address] 97593- 6836 Nov, [facility] [id number] [place] [address] 29714- 0127 Nov, Hypothyroid E03.9 [facility] [address] [id number] [address] 1609 October, Hypothyroid E03.9 [facility] [id number] [place] [address] 46910- 0940 October, Diabetes E11.9 [facility] [id number] [address]- 4669 Aug, Hypothyroid E03.9 [facility] [id number] [place] [address] 21762- 7583 Aug, Hypothyroid E03.9 [facility] [id number] [place] [address] 64936- 6439 Apr, Hypothyroid E03.9 [facility] [id number] [place] [address] 74586- 3989 Apr, Diabetes E11.9 and Hypothyroid E03.9 [facility] [id number] [place] [address] 15781- 1185 Mar, Encounter for immunization Z23 [facility] [id number] [place] [address] 41950- 0407 Feb, Diabetes E11.9 [facility] [id number] [place] [address] 65938- 3239 Jan, [facility] [id number] [place] [address] 38847- 2153 Jan, [facility] [id number] [place] [address] 40205- 4726 Jan, Diabetes E11.9 [facility] [id number] [place] [address] 37156- 6689 Dec, Trigger middle finger of right hand M65.331 ; Trigger finger of right thumb M65.311 ; Trigger finger of left thumb M65.312 and Trigger ring finger of left hand M65.342 [facility] [id number] [place] [address] 76321- 7814 Dec, [facility] [id number] [place] [address] 21791- 4546 Dec, Hypothyroid E03.9 [facility] [id number] [place] [address] 11932- 9534 Nov, [facility] [address] [facility] [id number] [place] [address]- 6878 October, [facility] [address] [facility] [id number], [place] [address]- 1646 October, Hypothyroid E03.9 [facility] [id number] [address]- 6196 October, [facility] [address] [facility] [id number], [place] [address]- 5812 Sep, Hypothyroid E03.9 and Diabetes E11.9 [facility] [address] [facility] [id number] [place] [address]- 1152 Sep, Diabetes E11.9 and Hypothyroid E03.9 [facility] [id number] [address]- 8374 Sep, [facility] [id number] [address]- 1919 Aug, [facility] [id number] [place] [address]- 1639 Aug, [facility] [id number] [place] [address]- 9251 Aug, [facility] [id number] [address]- 3838 Aug, [facility] [id number] [address]- 2680 Aug, [facility] [id number] [place] [address]- 0400 Jul, [facility] [id number] [address]- 7406 Jun, [facility] [id number] [address]- 9883 Jun, Rheumatoid arthritis involving multiple sites with positive rheumatoid factor M05.79 [facility] [address] [facility] [id number], [place] [address]- 6910 Jun, [facility] [id number], [place] [address]- 8236 May, [facility] [id number] [address]- 5066 May, Rheumatoid arthritis involving multiple sites with positive rheumatoid factor M05.79 [facility] [id number] 2849 May, [facility] [id number], [place] [address]- 1363 May, Rheumatoid arthritis involving multiple sites with positive rheumatoid factor M05.79 [facility] [id number] [address]- 8047 Apr, Diabetes E11.9 ; Long-term insulin use Z79.4 ; Insulin pump in place Z96.41 ; Arthralgia of hand, unspecified laterality M79.643 and History of breast cancer Z85.3 [facility] [id number], [place] [address]- 4706 Apr, [facility] [id number] [address]- 4762 Mar, [facility] [id number], [place] [address]- 1811 Mar, [facility] [id number] [address]- 3162 Feb, UTI (urinary tract infection) 599.0 [facility] [id number] [address]- 0080 Feb, UTI (urinary tract infection) 599.0 [facility] [id number], [place] [address]- 6920 Feb, UTI (urinary tract infection) 599.0 [facility] [id number] [address]- 3940 28 Feb, 2015 UTI (urinary tract infection) 599.0 [facility] [address] [id number] [place] [address]- 4286 22 Feb, 2015 [facility] [address] [id number] [place] [address]- 2189 17 Feb, 2015 [facility] [address] [id number], [place] [address]- 2476 15 Feb, 2015 [facility] [address] [id number] [place] [address]- 3988 14 Feb, 2015 [facility] [address] [id number] [place] [address]- 8033 11 Nov, 2014 Trigger finger of right hand 727.03 [facility] [id number], [place] [address]- 8471 14 Sep, 2014 [facility] [id number], [place] [address]- 0703 13 Sep, 2014 [facility] [id number], [place] [address]- 5635 Aug, [facility] [id number] [address]- 8522 Aug, [facility] [id number] [address]- 0908 Aug, [facility] [address] [facility] [id number], [place] [address]- 5287 Aug, [facility] [address] [id number], [place] [address]- 9649 Jul, [facility] [address] [facility] [id number] 8602 Jul, [facility] [address] [facility] [id number], [place] [address]- 6430 Jul, [facility] [place] [facility] [address] [id number] [place] [address]- 6604 Jul, [facility] [place] [facility] [address] [id number] [place] [address]- 4279 Jun, [facility] [place] [facility] [address] [id number] [place] [address]- 4390 Jun, [facility] [place] [facility] [address] [id number] [place] [address]- 1360 May, [facility] [place] [facility] [address] [id number] [place] [address]- 7576 May, [facility] [place] [facility] [address] [id number] [place] [address]- 9038 May, [facility] [place] [facility] [address] [id number] [place] [address]- 7710 May, [facility] [place] [facility] [address] [id number] [place] [address]- 9443 Apr, [facility] [place] [facility] [address] [id number] [place] [address]- 5052 Apr, [facility] [place] [facility] [address] [id number] [place] [address]- 2235 Mar, [facility] [place] [facility] [address] [id number] [place] [address]- 0246 Mar, [facility] [place] [facility] [address] [id number] [place] [address]- 6916 Mar, [facility] [place] [facility] [address] [id number] [place] [address]- 4314 Mar, [facility] [place] [facility] [address] [id number] [place] [address]- 9688 Mar, [facility] [place] [facility] [address] [id number] [place] [address]- 3654 Mar, [facility] [place] [facility] [address] [id number] [place] [address]- 3290 Mar, [facility] [place] [facility] [address] [id number] [place] [address]- 5972 07 Mar, 2014 [facility] [place] [facility] [address] [id number] [place] [address]- 1751 25 Feb, 2013 [facility] [place] [facility] [address] [id number] [place] [address]- 6026 25 Feb, 2013 [facility] [place] [facility] [address] [id number] [place] [address]- 2118 18 Feb, 2013 [facility] [place] [facility] [address] [id number] [place] [address]- 7426 18 Feb, 2013 [facility] [place] [facility] [address] [id number] [place] [address]- 3074 10 Feb, 2013 [facility] [place] [facility] [address] [id number] [place] [address]- 0685 Feb, 2013 [facility] [place] [facility] [address] [id number] [place] [address]- 0149 05 Feb, 2013 [facility] [place] [facility] [address] [id number] [place] [address]- 7776 05 Feb, 2013 [facility] [place] [facility] [address] [id number] [place] [address]- 7387 05 Feb, 2013 [facility] [place] [facility] [address] [id number] [place] [address]- 4413 Feb, 2013 [facility] [place] [facility] [address] [id number], [place] [address]- 5882 Feb, 2013 [facility] [place] [facility] [address] [id number] [place] [address]- 4241 Feb, [facility] [place] [facility] [address] [id number] [place] [address]- 8683 Jan, [facility] [place] [facility] [address] [id number] [place] [address]- 1466 Jan, [facility] [place] [facility] [address] [id number] [place] [address]- 8733 Jan, [facility] [place] [facility] [address] [id number] [place] [address]- 6378 Jan, [facility] [place] [facility] [address] [id number] [place] [address]- 3196 Dec, [facility] [place] [facility] [address] [id number] [place] [address]- 3656 Dec, [facility] [place] [facility] [address] [id number] [place] [address]- 6210 Dec, [facility] [place] [facility] [address] [id number] [place] [address]- 3859 Dec, [facility] [place] [facility] [address] [id number] [place] [address]- 7219 Dec, [facility] [place] [facility] [address] [id number] [place] [address]- 8027 Dec, [facility] [place] [facility] [address] [id number] [place] [address]- 5363 Dec, [facility] [place] [facility] [address] [id number] [place] [address]- 4745 Dec, [facility] [place] [facility] [address] [id number] [place] [address]- 7481 Dec, [facility] [place] [facility] [address] [id number] [place] [address]- 9641 Dec, [facility] [place] [facility] [address] [id number] [place] [address]- 8970 Dec, [facility] [place] [facility] [address] [id number] [place] [address]- 5719 Dec, [facility] [place] [facility] [address] [id number] [place] [address]- 3593 October, [facility] [place] [facility] [address] [id number] [place] [address]- 0207 October, [facility] [place] [facility] [address] [id number] [place] [address]- 1278 19 Aug, 2013 [facility] [place] [facility] [address] [id number] [place] [address]- 7496 19 Aug, 2013 [facility] [place] [facility] [address] [id number] [place] [address]- 4530 10 Aug, 2013 [facility] [place] [facility] [address] [id number] [place] [address]- 0749 10 Aug, 2013 [facility] [place] [facility] [address] [id number] [place] [address]- 6585 31 Jun, 2013 [facility] [place] [facility] [address] [id number] [place] [address]- 5619 31 Jun, 2013 [facility] [place] [facility] [address] [id number] [place] [address]- 9825 15 Jun, 2013 [facility] [place] [facility] [address] [id number] [place] [address]- 9123 15 Jun, 2013 [facility] [place] [facility] [address] [id number] [place] [address]- 5110 14 Jun, 2013 [facility] [place] [facility] [address] [id number] [place] [address]- 4413 14 Jun, 2013 [facility] [place] [facility] [address] [id number] [place] [address]- 2397 14 Jun, 2013 [facility] [place] [facility] [address] [id number] [place] [address]- 8917 14 Jun, 2013 [facility] [place] [facility] [address] [id number] [place] [address]- 6839 May, [facility] [place] [facility] [address] [id number] [place] [address]- 0127 May, [facility] [place] [facility] [address] [id number] [place] [address]- 2207 Apr, [facility] [place] [facility] [address] [id number] [place] [address]- 7142 Apr, [facility] [place] [facility] [address] [id number] [place] [address]- 7128 15 Apr, 2013 [facility] [place] [facility] [address] [id number] [place] [address]- 4844 Apr, [facility] [place] [facility] [address] [id number] [place] [address]- 8651 Apr, [facility] [place] [facility] [address] [id number] [place] [address]- 7842 Mar, [facility] [place] [facility] [address] [id number] [place] [address]- 7874 Mar, [facility] [place] [facility] [address] [id number] [place] [address]- 4939 Mar, [facility] [place] [facility] [address] [id number] [place] [address]- 3178 Mar, [facility] [place] [facility] [address] [id number] [place] [address]- 5449 Feb, [facility] [place] [facility] [address] [id number] [place] [address]- 9744 Jan, [facility] [place] [facility] [address] [id number] [place] [address]- 3406 Dec, [facility] [place] [facility] [address] [id number], [place] [address]- 5463 Dec, [facility] [place] [facility] [address] [id number], [place] [address]- 4968 Dec, [facility] [place] [facility] [address] [id number] [place] [address] Dec, [facility] [place] [facility] [address] [id number], [place] [address] Nov, [facility] [place] [facility] [address] [id number] [place] [address] October, [facility] [place] [facility] [address] [id number] [place] [address] October, [facility] [address] [id number] [place] [address] October, [facility] [address] [id number] [place] [address] October, [facility] [address] [id number] [place] [address] October, [facility] [address] [id number] [place] [address] October, [facility] [address] [id number] [place] [address] October, [facility] [address] [id number] [place] [address] October, [facility] [address] [id number] [place] [address] Sep, [facility] [address] [id number] [place] [address] Sep, [facility] [address] [id number] [place] [address] Sep, [facility] [address] [id number] [place] [address] 31 Aug, 2012 [facility] [address] [id number] [place] [address] 29 Aug, 2012 [facility] [address] [id number] [place] [address] 28 Aug, 2012 [facility] [address] [id number] [place] [address] 27 Aug, 2012 [facility] [address] [id number] [place] [address] 14 Aug, 2012 [facility] [address] [id number] [place] [address] Aug, [facility] [place] [facility] [address] [id number] [place] [address] Jul, [facility] [place] [facility] [address] [id number] [place] [address]- [address] Jun, [facility] [place] [facility] [address] [id number] [place] [address] Mar, [facility] [place] [facility] [address] [id number] [place] [address] Mar, [facility] [place] [facility] [address] [id number] [place] [address] Mar, [facility] [place] [facility] [address] [id number] [place] [address] Mar, [facility] [place] [facility] [address] [facility] [id number] [place] [address] Mar, [facility] [place] [facility] [address] [id number] [place] [address] Feb, [facility] [place] [facility] [address] [id number] [place] [address] 24 Feb, 2012 [facility] [place] [facility] [address] [facility] [id number], [place] [address] Feb, [facility] [place] [facility] [address] [facility] [id number], [place] [address] Feb, [facility] [place] [facility] [address] [id number], [place] [address] Feb, [facility] [place] [facility] [address] [id number] [place] [address] Jan, [facility] [place] [facility] [address] [id number], [place] [address] Nov, [facility] [place] [facility] [address] [facility] [id number], [place] [address] Nov, [facility] [place] [facility] [address] [id number], [place] [address] 05 Nov, 2011 [facility] [address] [id number] [place] [address] 30 Sep, 2011 [facility] [place] [facility] [address] [id number] [place] [address] 26 Sep, 2011 [facility] [address] [id number] [place] [address] Sep, [facility] [address] [id number] [place] [address] 23 Aug, 2011 [facility] [address] [id number] [place] [address] 110[address] Aug, [facility] [address] [id number] [place] [address] 08 Jul, 2011 [facility] [address] [facility] [id number] [place] [address] Jul, [facility] [address] [id number] [place] [address] Jun, [facility] [address] [id number] [place] [address] Jun, [facility] [address] [facility] [id number] [place] [address] May, [facility] [address] [id number] [place] [address] May, [facility] [place] [facility] [address] [id number] [place] [address]- [address] 20 May, 2011 [facility] [place] [facility] [address] [id number] [place] [address]- [address]686 14 May, 2011 [facility] [place] [facility] [address] [id number] [place] [address]- [address] 14 May, 2011 [facility] [place] [facility] [address] [facility] [id number] [place] [address] Apr, [facility] [place] [facility] [address] [id number] [place] [address] Aug, [facility] [place] [facility] [address] [id number] [place] [address]- [address] Jul, [facility] [place] [facility] [address] [id number] [place] [address] Apr, [facility] [place] [facility] [address] [id number] [place] [address] Apr, [facility] [place] [facility] [address] [id number] [place] [address] Apr, [facility] [place] [facility] [address] [id number] [place] [address] 14 Mar, 2010 [facility] [place] [facility] [address] [id number] [place] [address] Jan, [facility] [place] [facility] [address] [id number] [place] [address] 16 Sep, 2009 [facility] [place] [facility] [address] [id number] [place] [address] Jun, [facility] [place] [facility] [address] [id number] [place] [address] May, [facility] [place] [facility] [address] [id number] [place] [address] May, [facility] [place] [facility] [address] [id number], [place] [address] May, [facility] [place] [facility] [address] [id number] [place] [address] 29 Mar, 2009 [facility] [place] [facility] [address] [id number] [place] [address] 10 Feb, 2009 [facility] [place] [facility] [address] [id number] [place] [address] Nov, [facility] [place] [facility] [address] [id number] [place] [address] Aug, IMMUNIZATIONS No Known Immunizations SOCIAL HISTORY Never Assessed REASON FOR VISIT Thyroid f/u, Diabetes f/u, ABoggsLPN PLAN OF CARE Activity Details Follow Up 3 Months Reason:DM VITAL SIGNS Height 67 in 2016-12-27 Weight 181.3 lbs 2016-12-27 Temperature 98.1 degrees Fahrenheit 2016-12-27 Heart Rate 64 bpm 2016-12-27 Respiratory Rate 18 2016-12-27 BMI 28.39 kg/m2 2016-12-27 Blood pressure systolic 102 mmHg 2016-12-27 Blood pressure diastolic 70 mmHg 2016-12-27 MEDICATIONS Medication Instructions Dosage Frequency Start Date End Date Duration Status Ketone Test N/A In Vitro PRN as directed Feb, Active NovoLog 100 UNIT/ML Subcutaneous per pump as directed Feb, Active Calcium Oral Once a day 2 tablets 24h Active GlucaGen HypoKit 1 MG Injection PRN as directed Feb, Active Femara 2.5 mg take 1 tablet (2.5 mg) by oral route once daily Apr, Active Eun Contour Test N/A test blood sugar Feb, Active Krill Oil Ultra Strength 1500 MG Orally Once a day 1 capsule 24h Active B Complex Active Osteo Bi-Flex Regular Strength 250-200 MG Orally 2 times a day 1 tablet with a meal 12h Active Eun Contour next Link w/Device Active Vitamin D 1000 UNIT Orally Once a day 1 tablet 24h Active potassium Oral Once a day 1 tablet 24h Active Gelatin 650 MG Orally Once a day 4 capsules after a meal 24h Active Levothyroxine Sodium 200 MCG Orally Once a day 1 tablet 24h 60 days Active Gabapentin 300 MG Orally 2 times a day 1 capsule 12h Dec, 30 Active RESULTS No Results PROCEDURES Procedure Date Ordered Result Body Site ASSAY THYROID STIM HORMONE December 27, 2016 VENIPUNCT, ROUTINE* December 27, 2016 INSTRUCTIONS MEDICATIONS ADMINISTERED No Known Medications MEDICAL (GENERAL) HISTORY Type Description Date Medical History DM Medical History Cholecystectomy Medical History Breast Cancer 04/2012 Surgical History post cholecystectomy Surgical History Hysterectomy Surgical History Masectomy Surgical History section x 3 Surgical History carpal tunnel release bilateral Surgical History bilateral trigger finger release Hospitalization History DKA at in [place] September 2016
--- OUTSIDE RECORDS SUMMARY | 2018-06-01 16:26 | XMS REPORT ---
Author Author EUGENIO BELTRAN [facility] Address [address] [place] [address] Care Team Providers Care Desk Pen Set Assembler Name Role Phone EUGENIO BELTRAN Unavailable PROBLEMS Type Condition ICD9-CM Code [id number] Code Onset Dates Condition Status SNOMED Code Problem Diabetes E11.9 Active 85447995 Problem Hypothyroid E03.9 Active 20952136 Problem Primary osteoarthritis involving multiple joints M15.0 Active 850523515 Problem Rheumatoid arthritis M06.9 Active 34866464 Problem History of breast cancer Z85.3 Active [id number] ALLERGIES No Information SOCIAL HISTORY Never Assessed PLAN OF CARE VITAL SIGNS MEDICATIONS Unknown Medications RESULTS Name Result Date Reference Range TSH 2016-09-16 TSH 11.770 0.450-4.500 PROCEDURES Procedure Date Ordered Result Body Site ASSAY THYROID STIM HORMONE September 16, 2016 VENIPUNCT, ROUTINE* September 16, 2016 IMMUNIZATIONS No Known Immunizations MEDICAL (GENERAL) HISTORY Type Description Date Medical History DM Medical History Cholecystectomy Medical History Breast Cancer 04/2012 Surgical History post cholecystectomy Surgical History Hysterectomy Surgical History Masectomy Surgical History section x 3 Surgical History carpal tunnel release bilateral Surgical History bilateral trigger finger release Hospitalization History DKA at in [place] September 2016
--- OUTSIDE RECORDS SUMMARY | 2018-06-01 16:26 | XMS REPORT ---
Author Author VONNIE BAUMANN Organization [facility] Address [address] [place] [address] Care Team Providers Care Pathology Assistant Name Role Phone VONNIE BAUMANN Unavailable PROBLEMS Type Condition ICD9-CM Code [id number] Code Onset Dates Condition Status SNOMED Code Problem Diabetes E11.9 Active 41336190 Problem Hypothyroid E03.9 Active 90302386 Problem Primary osteoarthritis involving multiple joints M15.0 Active 615148334 Problem Rheumatoid arthritis M06.9 Active 93036328 Problem History of breast cancer Z85.3 Active 351028340 ALLERGIES Substance Reaction Event Type Date Status Penicillin G Potassium Unknown Drug Allergy October, Active SOCIAL HISTORY Never Assessed PLAN OF CARE Activity Details Follow Up prn. Continue regular f//u with Dr Quiroz Reason: VITAL SIGNS Height 67 in 2016-10-28 Weight 180.9 lbs 2016-10-28 Temperature 98.2 degrees Fahrenheit 2016-10-28 Heart Rate 84 bpm 2016-10-28 Respiratory Rate 20 2016-10-28 BMI 28.33 kg/m2 2016-10-28 Blood pressure systolic 90 mmHg 2016-10-28 Blood pressure diastolic 62 mmHg 2016-10-28 MEDICATIONS Medication Instructions Dosage Frequency Start Date End Date Duration Status potassium 1 tab Active Gabapentin 300 MG Orally 2 times a day 1 capsule 12h Dec, 90 days Active Levothyroxine Sodium 200 MCG Orally Once a day 1 tablet 24h 30 Active Calcium Oral 2 times a day 1 tab 12h Active Eun Contour next Link w/Device Active B Complex Active Osteo Bi-Flex Regular Strength 250-200 MG Orally 2 times a day 1 tablet with a meal 12h Active Ketone Test N/A In Vitro PRN as directed Feb, Active GlucaGen HypoKit 1 MG Injection PRN as directed Feb, Active Eun Contour Test N/A test blood sugar Feb, Active Pravastatin Sodium 10 MG Orally Once a day 1 tablet 24h Active NovoLog 100 UNIT/ML Subcutaneous per pump as directed Feb, Active Femara 2.5 mg take 1 tablet (2.5 mg) by oral route once daily Apr, Active RESULTS No Results PROCEDURES No Known procedures IMMUNIZATIONS No Known Immunizations MEDICAL (GENERAL) HISTORY Type Description Date Medical History DM Medical History Cholecystectomy Medical History Breast Cancer 04/2012 Surgical History post cholecystectomy Surgical History Hysterectomy Surgical History Masectomy Surgical History section x 3 Surgical History carpal tunnel release bilateral Surgical History bilateral trigger finger release Hospitalization History DKA at in [place] September 2016
--- OUTSIDE RECORDS SUMMARY | 2018-06-01 16:27 | XMS REPORT ---
Author Author EUGENIO BELTRAN Organization [facility] Address [address] [place] [address] Care Team Providers Care [employer] Faculty Member Name Role Phone EUGENIO BELTRAN Unavailable PROBLEMS Type Condition ICD9-CM Code [id number] Code Onset Dates Condition Status SNOMED Code Problem Dysthymia F34.1 Active 30638856 Problem Rheumatoid arthritis M06.9 Active 31032781 Problem Hypothyroid E03.9 Active 80473869 Problem Primary osteoarthritis involving multiple joints M15.0 Active 238561718 Problem History of breast cancer Z85.3 Active 244596229 Problem Diabetes E11.9 Active 03658525 ALLERGIES Substance Reaction Event Type Date Status Penicillin G Sodium hives Drug Allergy Apr, Active ENCOUNTERS Encounter Location Date Diagnosis [facility] [id number] [place] [address] 99733- 3539 Sep, Diabetes E11.9 [facility] [id number] [place] [address] 54249- 1694 Sep, [facility] [id number] [place] [address] 47664- 1166 Aug, [facility] [id number] [place] [address] 48639- 6418 Jul, [facility] [id number] [place] [address] 14226- 1071 Jul, [facility] [id number] [place] [address] 18443- 5171 Jul, [facility] [id number] [place] [address] 12685- 4488 Jul, Diabetes E11.9 and Dysthymia F34.1 [facility] [address] [address] [address] 0849 Jul, [facility] [id number] [place] [address] 47236- 1305 Jun, Callus L84 and Diabetes E11.9 [facility] [id number] [place] [address] 03218- 5498 May, [facility] [address] 0[address]- 7770 Apr, [facility] [id number] [place] [address] 09351- 3411 Apr, [facility] [address] 96336- 7791 Apr, Diabetes E11.9 ; Hypothyroid E03.9 ; Dysthymia F34.1 ; Tobacco abuse Z72.0 ; Colon cancer screening Z12.11 and Encounter for immunization Z23 [facility] [id number] [place] [address] 49199- 4235 Dec, [facility] [id number] [place] [address] 73087- 7309 Dec, [facility] [id number] [place] [address] 83975- 3985 Dec, Hypothyroid E03.9 and Diabetes E11.9 [facility] [id number] [place] [address] 17838- 8186 Nov, [facility] [id number] [place] [address] 91684- 9216 Nov, [facility] [id number] [place] [address] 93796- 4319 Nov, [facility] [id number] [place] [address] 02328- 3738 Nov, Hypothyroid E03.9 [facility] [id number] [place] [address] 14556- 7357 October, Hypothyroid E03.9 [facility] [address] [address]- 4809 October, Diabetes E11.9 [facility] [address] [address]- 1411 Aug, Hypothyroid E03.9 [facility] [address] [address]- 6497 Aug, Hypothyroid E03.9 [facility] [id number] [place] [address] 28938- 6746 Apr, Hypothyroid E03.9 [facility] [id number] [place] [address] 95837- 3149 Apr, Diabetes E11.9 and Hypothyroid E03.9 [facility] [id number] [place] [address] 01450- 2726 Mar, Encounter for immunization Z23 [facility] [id number] [place] [address] 72302- 8446 Feb, Diabetes E11.9 [facility] [id number] [place] [address] 13525- 9578 Jan, [facility] [address] [address]- 6704 Jan, [facility] [id number] [place] [address] 67427- 6387 Jan, Diabetes E11.9 [facility] [address] [address]- 2917 Dec, Trigger middle finger of right hand M65.331 ; Trigger finger of right thumb M65.311 ; Trigger finger of left thumb M65.312 and Trigger ring finger of left hand M65.342 [facility] [address] [address]- 2823 Dec, [facility] [id number] [place] [address] 44075- 0493 Dec, Hypothyroid E03.9 [facility] [address] [facility] [place] [place] [id number] [place] [address]- 3696 Nov, [facility] [address] [facility] [place] [place] [id number] [place] [address]- 0366 October, [facility] [address] [facility] [place] [place] [id number] [place] 0418 October, Hypothyroid E03.9 [facility] [address] [facility] [place] [place] [id number] [place] [address]- 7043 October, [facility] [address] [facility] [place] [place] [id number] [place] [address], [place] 9500 Sep, Hypothyroid E03.9 and Diabetes E11.9 [facility] [address] [place] [address]- 5155 Sep, Diabetes E11.9 and Hypothyroid E03.9 [facility] [address] [place] [address]- 7026 Sep, [facility] [address] [place] [address]- 8443 Aug, [facility] [address] [facility] [place] [id number] [place] [address]- 6935 Aug, [facility] [address] [facility] [place] [place] [id number] [place] [address]- 8777 Aug, [facility] [address] [facility] [place] [id number] [address]- 9823 Aug, [facility] [address] [facility] [place] [id number] [place] [address]- 7107 Aug, [facility] [address] [facility] [place] [id number] [place] [address]- 2196 Jul, [facility] [address] [facility] [place] [id number] [place] [address]- 1855 Jun, [facility] [id number] [address]- 2856 Jun, Rheumatoid arthritis involving multiple sites with positive rheumatoid factor M05.79 [facility] [address] [address]- 0824 Jun, [facility] [address] [address]- 1642 May, [facility] [address] [address]- 9267 May, Rheumatoid arthritis involving multiple sites with positive rheumatoid factor M05.79 [address] [address] [place] [address] 324571- 6078 May, [address] [address] [address]- 4212 May, Rheumatoid arthritis involving multiple sites with positive rheumatoid factor M05.79 [address] [address] [place] [address] 70172- 4614 Apr, Diabetes E11.9 ; Long-term insulin use Z79.4 ; Insulin pump in place Z96.41 ; Arthralgia of hand, unspecified laterality M79.643 and History of breast cancer Z85.3 [address] [facility] [id number] [address]- 6299 Apr, [address] [address] [address]- 6173 Mar, [facility] [id number] [address]- 0387 Mar, [address] [address]- 4272 Feb, UTI (urinary tract infection) 599.0 [id number] [address]- 6536 Feb, UTI (urinary tract infection) 599.0 [address] [address]- 2334 28 Feb, 2015 UTI (urinary tract infection) 599.0 [facility] [address] [id number] [address]- 1126 28 Feb, 2015 UTI (urinary tract infection) 599.0 [facility] [address] [id number] [address] 2546 22 Feb, 2015 [facility] [address] [id number] [address] 2546 17 Feb, 2015 [facility] [address] [id number] [address] 2546 15 Feb, 2015 [facility] [address] [id number] [address]- 0226 14 Feb, 2015 [facility] [address] [id number] [address]- 4143 Nov, Trigger finger of right hand 727.03 [facility] [address] [id number] [address]- 2958 Sep, [facility] [address] [id number] [address]- 5237 Sep, [facility] [address] [id number] [address]- 8019 Aug, [facility] [address] [id number] [address] 2546 Aug, [facility] [address] [id number] [address]- 2549 Aug, [facility] [address] [id number] [address] 2546 Aug, [facility] [address] [id number] [address]- 6155 Jul, [facility] [address] [id number] [address]- 1864 Jul, [facility] [place] [facility] [address] [id number] [place] [address]- 5210 20 Jul, 2014 [facility] [place] [facility] [address] [id number] [place] [address]- 4617 20 Jul, 2014 [facility] [place] [facility] [address] [id number] [place] [address]- 3276 14 Jun, 2014 [facility] [place] [facility] [address] [id number] [place] [address]- 9916 14 Jun, 2014 [facility] [place] [facility] [address] [id number] [place] [address]- 1783 18 May, 2014 [facility] [place] [facility] [address] [id number] [place] [address]- 5461 18 May, 2014 [facility] [place] [facility] [address] [id number] [place] [address]- 6865 18 May, 2014 [facility] [place] [facility] [address] [id number] [place] [address]- 4133 18 May, 2014 [facility] [place] [facility] [address] [id number] [place] [address]- 3846 Apr, [facility] [place] [facility] [address] [id number] [place] [address]- 5708 Apr, [facility] [place] [facility] [address] [id number] [place] [address]- 4120 14 Mar, 2014 [facility] [place] [facility] [address] [id number] [place] [address]- 2489 14 Mar, 2014 [facility] [place] [facility] [address] [id number] [place] [address]- 0401 14 Mar, 2014 [facility] [place] [facility] [address] [id number] [place] [address]- 2767 14 Mar, 2014 [facility] [place] [facility] [address] [id number] [place] [address]- 7352 09 Mar, 2014 [facility] [place] [facility] [address] [id number] [place] [address]- 8563 Mar, [facility] [place] [facility] [address] [id number] [place] [address]- 2293 Mar, [facility] [place] [facility] [address] [id number] [place] [address]- 1680 Mar, [facility] [place] [facility] [address] [id number] [place] [address]- 6117 25 Feb, 2013 [facility] [place] [facility] [address] [id number] [place] [address]- 8157 25 Feb, 2013 [facility] [place] [facility] [address] [id number] [place] [address]- 2862 18 Feb, 2013 [facility] [place] [facility] [address] [id number] [place] [address]- 8369 18 Feb, 2013 [facility] [place] [facility] [address] [id number] [place] [address]- 0805 10 Feb, 2013 [facility] [place] [facility] [address] [id number] [place] [address]- 9350 10 Feb, 2013 [facility] [place] [facility] [address] [id number] [place] [address]- 3830 05 Sep, 2013 [facility] [place] [facility] [address] [id number] [place] [address]- 7202 05 Sep, 2013 [facility] [place] [facility] [address] [id number] [place] [address]- 4345 05 Sep, 2013 [facility] [place] [facility] [address] [id number] [address]- 6898 05 Sep, 2013 [facility] [place] [facility] [address] [id number] [place] [address]- 2542 03 Sep, 2013 [facility] [place] [facility] [address] [id number] [place] [address]- 1295 03 Feb, 2013 [facility] [place] [facility] [address] [id number] [place] [address]- 0466 Jan, [facility] [place] [facility] [address] [id number] [place] [address]- 8806 Jan, [facility] [place] [facility] [address] [id number] [place] [address]- 1244 Jan, [facility] [place] [facility] [address] [id number] [place] [address]- 7743 Jan, [facility] [place] [facility] [address] [id number] [place] [address]- 1900 Dec, [facility] [place] [facility] [address] [id number] [place] [address]- 0365 Dec, [facility] [place] [facility] [address] [id number] [place] [address]- 4453 Dec, [facility] [place] [facility] [address] [id number] [place] [address]- 5060 Dec, [facility] [place] [facility] [address] [id number] [place] [address]- 6705 Dec, [facility] [place] [facility] [address] [id number] [place] [address]- 2808 Dec, [facility] [place] [facility] [address] [id number] [place] [address]- 5518 Dec, [facility] [place] [facility] [address] [id number] [place] [address]- 3189 Dec, [facility] [place] [facility] [address] [id number] [place] [address]- 1043 Dec, [facility] [place] [facility] [address] [id number] [place] [address]- 3178 Dec, [facility] [place] [facility] [address] [id number] [place] [address]- 2874 Dec, [facility] [place] [facility] [address] [id number] [place] [address]- 0409 Dec, [facility] [place] [facility] [address] [id number] [place] [address]- 8299 October, [facility] [place] [facility] [address] [id number] [place] [address]- 2693 October, [facility] [place] [facility] [address] [id number] [place] [address]- 2553 Aug, [facility] [place] [facility] [address] [id number] [place] [address]- 8864 Aug, [facility] [place] [facility] [address] [id number] [place] [address]- 0441 Aug, [facility] [place] [facility] [address] [id number] [place] [address]- 5370 Aug, [facility] [place] [facility] [address] [id number] [place] [address]- 8145 Jun, [facility] [place] [facility] [address] [id number] [place] [address]- 8910 Jun, [facility] [place] [facility] [address] [id number] [place] [address]- 2044 15 Jun, 2013 [facility] [place] [facility] [address] [id number] [place] [address]- 6750 Jun, [facility] [place] [facility] [address] [id number] [place] [address]- 2280 Jun, [facility] [place] [facility] [address] [id number] [place] [address]- 1088 14 Jun, 2013 [facility] [place] [facility] [address] [id number] [place] [address]- 7923 Jun, [facility] [place] [facility] [address] [id number] [place] [address]- 4573 Jun, [facility] [place] [facility] [address] [id number] [place] [address]- 6821 May, [facility] [place] [facility] [address] [id number] [place] [address]- 6100 May, [facility] [place] [facility] [address] [id number] [address]- 5238 Apr, [facility] [place] [facility] [address] [id number] [place] [address]- 2582 Apr, [facility] [place] [facility] [address] [id number] [place] [address]- 3796 15 Apr, 2013 [facility] [place] [facility] [address] [id number] [place] [address]- 8842 14 Apr, 2013 [facility] [place] [facility] [address] [id number] [place] [address]- 5361 14 Apr, 2013 [facility] [place] [facility] [address] [id number] [place] [address]- 6366 Mar, [facility] [place] [facility] [address] [id number] [place] [address]- 1552 Mar, [facility] [place] [facility] [address] [id number] [place] [address]- 2507 Mar, [facility] [place] [facility] [address] [id number] [place] [address]- 3378 Mar, [facility] [place] [facility] [address] [id number] [place] [address]- 6309 Feb, [facility] [place] [facility] [address] [id number] [place] [address]- 8109 Jan, [facility] [place] [facility] [address] [id number] [place] [address]- 1837 Dec, [facility] [place] [facility] [address] [id number] [place] [address]- 8518 Dec, [facility] [place] [facility] [address] [id number] [place] [address]- 1351 Dec, [facility] [place] [facility] [address] [id number] [place] [address]- 7269 Dec, [facility] [place] [facility] [address] [id number] [place] [address]- 5311 Nov, [facility] [place] [facility] [address] [id number] [place] [address]- 1878 October, [facility] [address] [id number] [place] [address]- 9445 October, [facility] [address] [id number] [place] [address]- 3496 October, [facility] [address] [id number] [place] [address]- 8616 October, [facility] [address] [id number] [place] [address]- 3496 October, [facility] [address] [id number] [place] [address]- 0672 October, [facility] [address] [id number] [place] [address]- 9267 October, [facility] [address] [id number] [place] [address]- 7366 October, [facility] [address] [id number] [place] [address]- 3475 Sep, [facility] [address] [id number] [place] [address]- 8126 Sep, [facility] [address] [id number] [place] [address]- 7303 Sep, [facility] [address] [id number] [place] [address]- 4875 31 Aug, 2012 [facility] [address] [id number] [place] [address]- 2856 29 Aug, 2012 [facility] [address] [id number] [place] [address]- 0723 28 Aug, 2012 [facility] [address] [id number] [place] [address]- 8546 27 Aug, 2012 [facility] [address] [id number] [place] [address]- 2174 Aug, [facility] [place] [facility] [address] [id number] [place] [address]- 4632 Aug, [facility] [place] [facility] [address] [id number] [place] [address]- 7370 Jul, [facility] [place] [facility] [address] [id number] [place] [address]- 0007 Jun, [facility] [place] [facility] [address] [id number] [place] [address]- 0618 Mar, [facility] [place] [facility] [address] [id number] [place] [address]- 9518 Mar, [facility] [place] [facility] [address] [id number] [place] [address]- 1370 Mar, [facility] [place] [facility] [address] [id number] [place] [address]- 6905 Mar, [facility] [place] [facility] [address] [id number] [place] [address]- 0784 Mar, [facility] [place] [facility] [address] [id number] [place] [address]- 7729 Feb, [facility] [place] [facility] [address] [id number] [place] [address]- 2664 24 Feb, 2012 [facility] [place] [facility] [address] [id number] [place] [address]- 9254 Feb, [facility] [place] [facility] [address] [id number] [place] [address]- 8466 Feb, [facility] [place] [facility] [address] [id number] [place] [address] Feb, [facility] [place] [facility] [address] [id number] [place] [address] Jan, [facility] [place] [facility] [address] [id number] [place] [address] Nov, [facility] [place] [facility] [address] [id number] [place] [address] 06 Nov, 2011 [facility] [address] [id number] [place] [address] 05 Nov, 2011 [facility] [place] [facility] [address] [id number] [place] [address] 30 Sep, 2011 [facility] [address] [id number] [place] [address] Sep, [facility] [place] [facility] [address] [id number] [place] [address] Sep, [facility] [address] [id number] [place] [address] Aug, [facility] [place] [facility] [address] [id number] [place] [address] Aug, [facility] [address] [id number] [place] [address] 08 Jul, 2011 [facility] [address] [id number] [place] [address] Jul, [facility] [place] [facility] [address] [id number] [place] [address] Jun, [facility] [address] [id number] [place] [address] Jun, [facility] [address] [id number] [place] [address] May, [facility] [place] [facility] [address] [id number] [place] [address] May, [facility] [place] [facility] [address] [id number] [place] [address] 20 May, 2011 [facility] [place] [facility] [address] [id number] [place] [address] 14 May, 2011 [facility] [place] [facility] [address] [id number] [place] [address] 14 May, 2011 [facility] [place] [facility] [address] [id number] [place] [address] 23 Apr, 2011 [facility] [place] [facility] [address] [id number] [place] [address] Aug, [facility] [place] [facility] [address] [id number] [place] [address] 18 Jul, 2010 [facility] [place] [facility] [address] [id number] [place] [address] Apr, [facility] [address] [id number] [place] [address] Apr, [facility] [place] [facility] [address] [id number] [place] [address] Apr, [facility] [place] [facility] [address] [id number] [place] [address] 14 Mar, 2010 [facility] [address] [id number] [place] [address] Jan, [facility] [place] [facility] [address] [id number] [place] [address] 16 Sep, 2009 [facility] [place] [facility] [address] [id number] [place] [address] Jun, [facility] [place] [facility] [address] [id number] [place] [address] 29 May, 2009 [facility] [place] [facility] [address] [id number] [place] [address] 07 May, 2009 [facility] [place] [facility] [address] [id number] [place] [address] May, [facility] [place] [facility] [address] [id number] [place] [address] 29 Mar, 2009 [facility] [place] [facility] [address] [id number] [place] [address] 10 Feb, 2009 [facility] [place] [facility] [address] [id number] [place] [address] Nov, [facility] [address] [facility] [place] [id number] [place] [address] Aug, IMMUNIZATIONS Vaccine Route Administration Date Status FLUARIX QUAD (3 AND UP) 2016 IM Intramuscular May 04, 2017 Administered ZOSTER (ZOSTAVAX) SC Subcutaneous May 04, 2017 Administered SOCIAL HISTORY Never Assessed REASON FOR VISIT Diabetes and thyroid-Luca PAPPAS PLAN OF CARE Activity Details Follow Up 4 Weeks Reason:dysthymia VITAL SIGNS Height 67 in 2017-05-04 Weight 173.6 lbs 2017-05-04 Temperature 98.6 degrees Fahrenheit 2017-05-04 Heart Rate 76 bpm 2017-05-04 Respiratory Rate 18 2017-05-04 BMI 27.19 kg/m2 2017-05-04 Blood pressure systolic 108 mmHg 2017-05-04 Blood pressure diastolic 72 mmHg 2017-05-04 MEDICATIONS Medication Instructions Dosage Frequency Start Date End Date Duration Status Ketone Test N/A In Vitro PRN as directed Feb, Active Femara 2.5 mg take 1 tablet (2.5 mg) by oral route once daily Apr, Active Osteo Bi-Flex Regular Strength 250-200 MG Orally 2 times a day 1 tablet with a meal 12h Active Calcium Oral Once a day 2 tablets 24h Active B Complex Active NovoLog 100 UNIT/ML Subcutaneous per pump as directed Feb, Active Gabapentin 300 MG Orally 2 times a day 1 capsule 12h 90 Active Krill Oil Ultra Strength 1500 MG Orally Once a day 1 capsule 24h Active Eun Contour next Link w/Device Active Eun Contour Test N/A test blood sugar Feb, Active Gelatin 650 MG Orally Once a day 4 capsules after a meal 24h Active potassium Oral Once a day 1 tablet 24h Active Wellbutrin SR 150 MG Orally Twice a day 1 tablet 12h Apr, 30 day(s) Active Levothyroxine Sodium 200 MCG Orally Once a day 1 tablet 24h 90 days Active GlucaGen HypoKit 1 MG Injection PRN as directed Feb, Active Vitamin D 1000 UNIT Orally Once a day 1 tablet 24h Active RESULTS No Results PROCEDURES Procedure Date Ordered Result Body Site GLYCATED HEMOGLOBIN TEST May 04, 2017 MICROALBUMIN, SEMIQUANT May 04, 2017 SINGLE IMMUNIZATION ADMIN May 04, 2017 ZOSTER (ZOSTAVAX) May 04, 2017 IMMUNIZATION ADMIN, EACH ADD (please include units) May 04, 2017 FLUARIX QUAD (3 AND UP) 2016May 04, 2017 [facility] May 04, 2017 VENIPUNCT, ROUTINE* May 04, 2017 INSTRUCTIONS MEDICATIONS ADMINISTERED No Known Medications MEDICAL (GENERAL) HISTORY Type Description Date Medical History DM Medical History Cholecystectomy Medical History Breast Cancer 04/2012 Surgical History post cholecystectomy Surgical History Hysterectomy Surgical History Masectomy Surgical History section x 3 Surgical History carpal tunnel release bilateral Surgical History bilateral trigger finger release Hospitalization History [facility] at in [place] September 2016
--- OUTSIDE RECORDS SUMMARY | 2018-06-01 16:28 | XMS REPORT ---
Author Author EUGENIO BELTRAN Organization [facility] Address [address] [place] [address] Care Team Providers Care Crystal Cutter Name Role Phone EUGENIO BELTRAN Unavailable PROBLEMS Type Condition ICD9-CM Code [id number] Code Onset Dates Condition Status SNOMED Code Problem Dysthymia F34.1 Active 62563890 Problem Rheumatoid arthritis M06.9 Active 90032523 Problem Hypothyroid E03.9 Active 89298290 Problem Primary osteoarthritis involving multiple joints M15.0 Active 675079959 Problem History of breast cancer Z85.3 Active 180767058 Problem Diabetes E11.9 Active [id number] ALLERGIES No Information ENCOUNTERS Encounter Location Date Diagnosis [place] [address] [address] Sep, [place] [address] [address]16- 8905 Aug, [place] [address] [place] [id number] [place] [address] 45159- 8528 Jul, [facility] [address] [place] [id number] [place] [address] 65109- 7404 Jul, [place] [address] [place] [id number] [place] [address] 59729- 9763 Jul, [facility] [address] [place] [id number] [place] [address] 25111- 5275 Jul, Diabetes E11.9 and Dysthymia F34.1 [facility] [address] [place] [id number] [place] [address] 58753- 6273 Jul, [place] [address] 9[address]30- 4613 Jun, Callus L84 and Diabetes E11.9 [facility] [address] [address] 0[address] May, [facility] [address] [place] [id number] [place] [address] 48940- 8316 Apr, [facility] [id number] [address] 0549 Apr, [facility] [address] [place] [id number] [place] [address] 57047- 9565 Apr, Diabetes E11.9 ; Hypothyroid E03.9 ; Dysthymia F34.1 ; Tobacco abuse Z72.0 ; Colon cancer screening Z12.11 and Encounter for immunization Z23 [facility] [id number] [address] 0089 Dec, [facility] [address] [place] [id number] [place] [address] 47789- 0895 Dec, [facility] [address] [address] 4890 Dec, Hypothyroid E03.9 and Diabetes E11.9 [facility] [address] [place] [address] [id number] [address] 8820 Nov, [facility] [address] [address]- 5673 Nov, [facility] [address] [place] [address] [id number] [address] 3464 Nov, [facility] [address], [place] [address]- 8822 Nov, Hypothyroid E03.9 [facility] [address] [place] [id number] [address]- 6420 October, Hypothyroid E03.9 [facility] [address] [address]- 7733 October, Diabetes E11.9 [facility] [address] [address]- 5571 Aug, Hypothyroid E03.9 [facility] [address] [place] [id number] [place] [address] 54480- 2069 Aug, Hypothyroid E03.9 [facility] [id number] [place] [address] 58699- 9308 Apr, Hypothyroid E03.9 [facility] [address] [place] [id number] [place] [address] 55714- 2653 Apr, Diabetes E11.9 and Hypothyroid E03.9 [facility] [address] [place] [id number] [place] [address] 71996- 9865 Mar, Encounter for immunization Z23 [facility] [address] [place] [id number] [place] [address] 48902- 8976 Feb, Diabetes E11.9 [facility] [address] [place] [id number] [place] [address] 52201- 1153 Jan, [facility] [address] [place] [id number] [place] [address] 59911- 7493 Jan, [facility] [address] [place] [id number] [place] [address] 92287- 2740 Jan, Diabetes E11.9 [facility] [address] [address]- 0282 Dec, Trigger middle finger of right hand M65.331 ; Trigger finger of right thumb M65.311 ; Trigger finger of left thumb M65.312 and Trigger ring finger of left hand M65.342 [facility] [address] [address]- 5104 Dec, [facility] [id number] [place] [address] 60681- 9699 Dec, Hypothyroid E03.9 [facility] [address] [address]- 0306 Nov, [facility] [address] [facility] [id number] [id number] [address] October, [facility] [address] [facility] [id number] [place] 9269 October, Hypothyroid E03.9 [facility] [address] [facility] [id number] [place] [address]444 October, [facility] [address] [facility] [id number] [place] [address]- 4239 Sep, Hypothyroid E03.9 and Diabetes E11.9 [facility] [address] [facility] [id number] [place] [address]- 7987 Sep, Diabetes E11.9 and Hypothyroid E03.9 [facility] [address] [facility] [id number] [place] [address]- 7139 Sep, [facility] [address] [place] [id number] [address]- 7061 Aug, [facility] [address] [facility] [id number] [place] [address]- 5832 Aug, [facility] [address] [place] [id number] [address]- 6571 Aug, [facility] [address] [place] [id number] 5289 Aug, [facility] [address] [place] [address]- 9451 Aug, [facility] [address] [facility] [id number] [place] 3630 Jul, [facility] [address] [place] [id number] [address]- 5677 Jun, [facility] [address] [place] [id number] [address]- 3495 Jun, Rheumatoid arthritis involving multiple sites with positive rheumatoid factor M05.79 [facility] [address] [place] [id number] [address]- 8364 15 Jun, 2015 [facility] [address] 6252 May, [facility] [address] 8775 May, Rheumatoid arthritis involving multiple sites with positive rheumatoid factor M05.79 [facility] [address] [place] [id number] [place] [address] 96828- 8826 May, [facility] [address] 3662 May, Rheumatoid arthritis involving multiple sites with positive rheumatoid factor M05.79 [facility] [id number] [place] [address] 332868- 9065 Apr, Diabetes E11.9 ; Long-term insulin use Z79.4 ; Insulin pump in place Z96.41 ; Arthralgia of hand, unspecified laterality M79.643 and History of breast cancer Z85.3 [facility] [address] [address]- 9106 Apr, [facility] [address] [address]- 9247 Mar, [facility] [address] [place] [id number] [address]- 0832 Mar, [facility] [address] [place] [id number] [address]- 9732 Feb, UTI (urinary tract infection) 599.0 [facility] [address] [place] [id number] [address]- 5836 Feb, UTI (urinary tract infection) 599.0 [facility] [address] [place] [id number] [address]- 0936 Feb, UTI (urinary tract infection) 599.0 [facility] [address] [address]- 2801 28 Feb, 2015 UTI (urinary tract infection) 599.0 [facility] [address] [id number] [address]- 2459 22 Feb, 2015 [facility] [address] [facility] [id number] [address]- 5846 17 Feb, 2015 [facility] [address] [facility] [id number] [address]- 6787 15 Feb, 2015 [facility] [address] [facility] [id number] [address]- 3605 14 Feb, 2015 [facility] [address] [place] [id number] [place] [address] 83175- 6259 11 Nov, 2014 Trigger finger of right hand 727.03 [facility] [address] [place] [address] [id number] [address]- 4582 14 Sep, 2014 [facility] [address] [place] [id number] [place] [address] 46002- 3850 Sep, [facility] [address] [facility] [id number] [address]- 4381 Aug, [facility] [address] [place] [id number] [address]- 8867 Aug, [facility] [address] [place] [id number] [address]- 4836 Aug, [facility] [address] [place] [id number] [address]- 3649 Aug, [facility] [address] [facility] [id number] [address]- 6112 Jul, [facility] [address] [facility] [id number] [address]- 2157 Jul, [facility] [address] [facility] [id number], [place] [address]- 6246 Jul, [facility] [address] [place] [id number] [address]- 4867 Jul, [facility] [place] [facility] [address] [id number] [place] [address]- 4850 14 Jun, 2014 [facility] [place] [facility] [address] [id number] [place] [address]- 0787 14 Jun, 2014 [facility] [place] [facility] [address] [facility] [id number] [place] 0854 May, [facility] [place] [facility] [address] [id number] [place] [address]- 0399 May, [facility] [place] [facility] [address] [id number] [place] [address]- 8135 May, [facility] [place] [facility] [address] [id number] [place] [address]- 8001 May, [facility] [place] [facility] [address] [id number] [place] [address]- 2650 Apr, [facility] [place] [facility] [address] [id number] [place] [address]- 4312 Apr, [facility] [place] [facility] [address] [id number] [place] [address]- 0557 Mar, [facility] [place] [facility] [address] [id number] [place] [address]- 4688 Mar, [facility] [place] [facility] [address] [id number] [address]- 7449 14 Mar, 2014 [facility] [place] [facility] [address] [id number] [address]- 6788 Mar, [facility] [place] [facility] [address] [id number] [place] [address]- 9736 Mar, [facility] [place] [facility] [address] [id number] [address]- 8606 Mar, [facility] [place] [facility] [address] [id number], [place] [address]- 0775 Mar, [facility] [place] [facility] [address] [id number] [place] [address]- 8961 07 Mar, 2013 [facility] [place] [facility] [address] [id number] [place] [address]- 3933 25 Feb, 2013 [facility] [place] [facility] [address] [id number] [place] [address]- 2546 25 Feb, 2013 [facility] [place] [facility] [address] [id number] [place] [address]- 2334 18 Feb, 2013 [facility] [place] [facility] [address] [id number] [place] [address]- 2548 18 Feb, 2013 [facility] [place] [facility] [address] [id number] [place] [address]- 0050 10 Feb, 2013 [facility] [place] [facility] [address] [id number] [place] [address]- 5070 10 Feb, 2013 [facility] [place] [facility] [address] [id number] [place] [address]- 2519 05 Feb, 2013 [facility] [place] [facility] [address] [id number] [place] [address]- 1213 05 Feb, 2013 [facility] [place] [facility] [address] [id number] [place] [address]- 2545 05 Feb, 2013 [facility] [place] [facility] [address] [id number] [place] [address]- 2549 05 Feb, 2013 [facility] [place] [facility] [address] [id number] [place] [address]- 2549 03 Feb, 2013 [facility] [place] [facility] [address] [id number] [place] [address]- 6513 03 Feb, 2013 [facility] [place] [facility] [address] [id number] [place] [address]- 7715 Jan, [facility] [place] [facility] [address] [id number] [place] [address]- 6779 Jan, [facility] [place] [facility] [address] [id number] [place] [address]- 5104 Jan, [facility] [place] [facility] [address] [id number] [place] [address]- 6367 Jan, [facility] [place] [facility] [address] [id number] [place] [address]- 6854 Dec, [facility] [place] [facility] [address] [id number] [place] [address]- 3886 Dec, [facility] [place] [facility] [address] [id number] [place] [address]- 4280 Dec, [facility] [place] [facility] [address] [id number] [place] [address]- 8769 Dec, [facility] [place] [facility] [address] [id number] [place] [address]- 5591 Dec, [facility] [place] [facility] [address] [id number] [place] [address]- 2504 Dec, [facility] [place] [facility] [address] [id number] [place] [address]- 6350 Dec, [facility] [place] [facility] [address] [id number] [place] [address]- 9189 Dec, [facility] [place] [facility] [address] [id number] [place] [address]- 6738 Dec, [facility] [place] [facility] [address] [id number] [place] [address]- 0136 Dec, [facility] [place] [facility] [address] [id number] [place] [address]- 0485 Dec, [facility] [place] [facility] [address] [id number] [place] [address]- 7483 Dec, [facility] [place] [facility] [address] [id number] [place] [address]- 9749 October, [facility] [place] [facility] [address] [id number] [place] [address]- 5875 October, [facility] [place] [facility] [address] [id number] [place] [address]- 0075 19 Aug, 2013 [facility] [place] [facility] [address] [id number] [place] [address]- 6194 19 Aug, 2013 [facility] [place] [facility] [address] [id number] [place] [address]- 7590 10 Aug, 2013 [facility] [place] [facility] [address] [id number] [place] [address]- 4379 10 Aug, 2013 [facility] [place] [facility] [address] [id number] [place] [address]- 0853 Jun, [facility] [place] [facility] [address] [id number] [place] [address]- 0836 31 Jun, 2013 [facility] [place] [facility] [address] [id number] [place] [address]- 9543 15 Jun, 2013 [facility] [place] [facility] [address] [id number] [place] [address]- 7675 15 Jun, 2013 [facility] [place] [facility] [address] [id number] [place] [address]- 8588 14 Jun, 2013 [facility] [place] [facility] [address] [id number] [place] [address]- 3252 14 Jun, 2013 [facility] [place] [facility] [address] [id number] [place] [address]- 3205 14 Jun, 2013 [facility] [place] [facility] [address] [id number] [place] [address]- 9891 14 Jun, 2013 [facility] [place] [facility] [address] [id number] [place] [address]- 1410 May, [facility] [place] [facility] [address] [id number] [place] [address]- 9483 May, [facility] [place] [facility] [address] [id number] [place] [address]- 0264 Apr, [facility] [place] [facility] [address] [id number] [place] [address]- 7221 Apr, [facility] [place] [facility] [address] [id number] [place] [address]- 2546 15 Apr, 2013 [facility] [address] [id number] [place] [address]- 0564 14 Apr, 2013 [facility] [place] [facility] [address] [id number] [place] [address]- 2546 Apr, [facility] [place] [facility] [address] [id number] [place] [address]- 1526 Mar, [facility] [place] [facility] [address] [id number] [place] [address] 2549 Mar, [facility] [place] [facility] [address] [id number] [place] [address]- 0944 Mar, [facility] [place] [facility] [address] [id number] [place] [address]- 2452 Mar, [facility] [place] [facility] [address] [id number] [place] [address]- 7984 Feb, [facility] [place] [facility] [address] [id number] [place] [address]- 3121 Jan, [facility] [place] [facility] [address] [id number] [place] [address]- 9226 Dec, [facility] [place] [facility] [address] [id number] [place] [address]- 6790 Dec, [facility] [place] [facility] [address] [id number] [place] [address]- 2541 Dec, [facility] [place] [facility] [address] [id number] [place] [address]- 2546 Dec, [facility] [place] [facility] [address] [id number] [place] [address]- 2546 Nov, [facility] [place] [facility] [address] [id number] [place] [address]- 2546 October, [facility] [place] [facility] [address] [id number] [place] [address]- 9681 October, [facility] [address] [id number] [place] [address]- 9382 October, [facility] [address] [id number] [place] [address]- 8177 October, [facility] [address] [id number] [place] [address]- 3639 October, [facility] [address] [id number] [place] [address]- 0843 October, [facility] [address] [id number] [place] [address]- 8652 October, [facility] [address] [id number] [place] [address]- 6699 October, [facility] [address] [id number] [place] [address]- 1159 Sep, [facility] [address] [id number] [place] [address]- 7406 Sep, [facility] [address] [id number] [place] [address]- 6748 Sep, [facility] [address] [id number] [place] [address]- 0531 31 Aug, 2012 [facility] [address] [id number] [place] [address]- 3660 29 Aug, 2012 [facility] [place] [facility] [address] [id number] [place] [address]- 6455 28 Aug, 2012 [facility] [place] [facility] [address] [id number] [place] [address]- 2646 27 Aug, 2012 [facility] [place] [facility] [address] [id number] [place] [address]- 3467 14 Aug, 2012 [facility] [place] [facility] [address] [id number] [place] [address]- 0767 05 Aug, 2012 [facility] [place] [facility] [address] [id number] [place] [address]- 1876 Jul, [facility] [place] [facility] [address] [id number] [place] [address]- 4924 Jun, [facility] [place] [facility] [address] [id number] [place] [address]- 5569 Mar, [facility] [place] [facility] [address] [id number] [place] [address]- 2870 Mar, [facility] [place] [facility] [address] [id number] [place] [address] Mar, [facility] [place] [facility] [address] [id number] [place] [address] Mar, [facility] [place] [facility] [address] [id number] [place] [address] Mar, [facility] [place] [facility] [address] [id number] [place] [address] 25 Feb, 2012 [facility] [place] [facility] [address] [id number] [place] [address] 24 Feb, 2012 [facility] [place] [facility] [address] [id number] [place] [address] 20 Feb, 2012 [facility] [place] [facility] [address] [id number] [place] [address] Feb, [facility] [place] [facility] [address] [id number] [place] [address] Feb, [facility] [place] [facility] [address] [id number] [place] [address] Jan, [facility] [place] [facility] [address] [id number] [place] [address] Nov, [facility] [place] [facility] [address] [id number] [place] [address] Nov, [facility] [place] [facility] [address] [id number] [place] [address] Nov, [facility] [place] [facility] [address] [id number] [place] [address] 30 Sep, 2011 [facility] [address] [id number] [place] [address] Sep, [facility] [place] [facility] [address] [id number] [place] [address] Sep, [facility] [place] [facility] [address] [id number] [place] [address] Aug, [facility] [address] [id number] [place] [address] Aug, [facility] [place] [facility] [address] [id number] [place] [address] 08 Jul, 2011 [facility] [address] [id number] [place] [address] Jul, [facility] [address] [id number] [place] [address] Jun, [facility] [address] [id number] [place] [address] Jun, [facility] [address] [id number] [place] [address] May, [facility] [address] [id number] [place] [address] May, [facility] [place] [facility] [address] [id number] [place] [address] May, [facility] [place] [facility] [address] [id number] [place] [address] May, [facility] [place] [facility] [address] [id number] [place] [address] May, [facility] [place] [facility] [address] [id number] [place] [address] Apr, [facility] [place] [facility] [address] [id number] [address] Aug, [facility] [address] [facility] [id number] [address] Jul, [facility] [address] [facility] [id number] [address] Apr, [facility] [address] [facility] [id number], [place] [address] Apr, [facility] [address] [facility] [id number] [address] Apr, [facility] [address] [facility] [id number] [address] Mar, [facility] [address] [facility] [id number][place] [address] [address] Jan, [facility] [id number] [address] [address] Sep, [facility] [address] [facility] [id number], [place] [address] Jun, [facility] [id number], [place] [address] May, [facility] [address] [facility] [id number][place] [address] May, [facility] [address] [facility] [id number][place] [address] May, [facility] [address] [facility] [id number][place] [address] Mar, [facility] [address] [facility] [id number][place] [address] Feb, [facility] [address] [facility] [id number][place] [address] Nov, [facility] [address] [facility] [id number], [place] [address] Aug, IMMUNIZATIONS No Known Immunizations SOCIAL HISTORY Never Assessed REASON FOR VISIT Refill request PLAN OF CARE VITAL SIGNS MEDICATIONS Medication Instructions Dosage Frequency Start Date End Date Duration Status Levothyroxine Sodium 200 MCG Orally Once a day 1 tablet 24h 90 days Active RESULTS No Results PROCEDURES No [...] finger release Hospitalization History DKA at in [place] September 2016
--- OUTSIDE RECORDS SUMMARY | 2018-06-01 16:28 | XMS REPORT ---
Author Author EUGENIO BETLRAN Organization [facility] Address [address] [place] [address] Care Team Providers Care Art Therapy Certified Supervisor Name Role Phone EUGENIO BELTRAN Unavailable PROBLEMS Type Condition ICD9-CM Code [id number] Code Onset Dates Condition Status SNOMED Code Problem Dysthymia F34.1 Active 70076680 Problem Rheumatoid arthritis M06.9 Active 00685739 Problem Hypothyroid E03.9 Active 16276011 Problem Primary osteoarthritis involving multiple joints M15.0 Active 710497003 Problem History of breast cancer Z85.3 Active 710419601 Problem Diabetes E11.9 Active 55109484 ALLERGIES No Information ENCOUNTERS Encounter Location Date Diagnosis [place] [id number] [place] [address] 36966- 8258 Sep, Diabetes E11.9 [facility] [id number] [place] [address] 32705- 7533 Sep, [facility] [id number] [place] [address] 22729- 5146 Aug, [facility] [id number] [place] [address] 59927- 4321 Jul, [facility] [id number] [place] [address] 96817- 4216 Jul, [facility] [id number] [place] [address] 11986- 3249 Jul, [facility] [id number] [place] [address] 62580- 3287 Jul, Diabetes E11.9 and Dysthymia F34.1 [facility] [id number] [place] [address] 68800- 8405 Jul, [facility] [address] [address] 4823 Jun, Callus L84 and Diabetes E11.9 [facility] [id number] [place] [address] 31857- 8025 May, [facility] [id number] [place] [address] 13510- 8722 Apr, [facility] [id number] [place] [address] 37871- 3587 Apr, [facility] [id number] [place] [address] 93559- 4743 Apr, Diabetes E11.9 ; Hypothyroid E03.9 ; Dysthymia F34.1 ; Tobacco abuse Z72.0 ; Colon cancer screening Z12.11 and Encounter for immunization Z23 [facility] [id number] [place] [address] 31792- 2567 Dec, [facility] [id number] [place] [address] 22742- 9258 Dec, [facility] [id number] [place] [address] 82329- 4295 Dec, Hypothyroid E03.9 and Diabetes E11.9 [facility] [id number] [place] [address] 73732- 9777 Nov, [facility] [id number] [place] [address] 56939- 7130 Nov, [facility] [id number] [place] [address] 29547- 6269 Nov, [facility] [id number] [place] [address] 20047- 2152 Nov, Hypothyroid E03.9 [facility] [id number] [address] 0020 October, Hypothyroid E03.9 [facility] [address] [address] 7799 October, Diabetes E11.9 [facility] [id number] [place] [address] 35238- 9525 Aug, Hypothyroid E03.9 [facility] [address] [address]- 2971 Aug, Hypothyroid E03.9 [facility] [id number] [place] [address] 27851- 8908 Apr, Hypothyroid E03.9 [facility] [id number] [place] [address] 30389- 5025 Apr, Diabetes E11.9 and Hypothyroid E03.9 [facility] [id number] [place] [address] 57191- 1392 Mar, Encounter for immunization Z23 [facility] [id number] [place] [address] 14229- 2290 Feb, Diabetes E11.9 [facility] [id number] [place] [address] 95548- 8572 Jan, [facility] [id number] [place] [address] 58501- 1140 Jan, [facility] [address] [address]- 9150 Jan, Diabetes E11.9 [facility] [address] [address]- 8962 Dec, Trigger middle finger of right hand M65.331 ; Trigger finger of right thumb M65.311 ; Trigger finger of left thumb M65.312 and Trigger ring finger of left hand M65.342 [facility] [address], [place] [address]- 4777 Dec, [facility] [address] [address]- 4052 Dec, Hypothyroid E03.9 [facility] [address] [id number] [place] [address]- 0883 Nov, [facility] [address] [facility] [id number] [place] [address]- 8342 October, [facility] [address] [facility] [id number] [place] [address]- 8470 October, Hypothyroid E03.9 [facility] [address] [facility] [id number] [place] [address]- 8979 October, [facility] [address] [facility] [id number] [place] [address]- 1598 Sep, Hypothyroid E03.9 and Diabetes E11.9 [facility] [address] [facility] [id number] [place] [address]- 2658 Sep, Diabetes E11.9 and Hypothyroid E03.9 [facility] [address] [facility] [id number] [place] [address]- 5349 Sep, [facility] [id number] [address]- 2281 Aug, [facility] [address] [facility] [id number] [place] [address]- 5432 Aug, [facility] [address] [facility] [id number] [place] [address]- 7962 Aug, [facility] [address] [facility] [id number] [place] [address]- 0755 Aug, [facility] [address] [facility] [id number] [place] 9035 Aug, [facility] [address] [facility] [id number] [place] 7504 Jul, [facility] [address] [facility] [id number] [place] [address]- 9927 Jun, [facility] [address] [facility] [id number] [address]- 4941 Jun, Rheumatoid arthritis involving multiple sites with positive rheumatoid factor M05.79 [facility] [address] [facility] [id number] [address]- 2366 Jun, [facility] [address] [facility] [id number], [place] [address]- 6989 May, [facility] [address] [address]- 9940 May, Rheumatoid arthritis involving multiple sites with positive rheumatoid factor M05.79 [facility] [id number] 7069 May, [facility] [address] [place] [address] 74264- 0626 May, Rheumatoid arthritis involving multiple sites with positive rheumatoid factor M05.79 [place] [address] [place] [address] 24593- 4261 Apr, Diabetes E11.9 ; Long-term insulin use Z79.4 ; Insulin pump in place Z96.41 ; Arthralgia of hand, unspecified laterality M79.643 and History of breast cancer Z85.3 [place] [id number] [address]- 2714 Apr, [place] [id number] [address]- 2759 Mar, [facility] [id number] [address]- 5527 Mar, [facility] [id number] [address]- 1082 Feb, UTI (urinary tract infection) 599.0 [place] [id number] 4148 Feb, UTI (urinary tract infection) 599.0 [facility] [id number] [address]- 3445 Feb, UTI (urinary tract infection) 599.0 [facility] [address] [id number] [address]- 0343 28 Feb, 2015 UTI (urinary tract infection) 599.0 [facility] [address] [id number], [place] [address]- 6498 22 Feb, 2015 [facility] [address] [id number], [place] [address]- 7995 17 Feb, 2015 [facility] [address] [id number], [place] [address]- 5750 15 Feb, 2015 [facility] [address] [id number], [place] [address]- 8796 14 Feb, 2015 [facility] [address] [facility] [id number] [address]- 9747 Nov, Trigger finger of right hand 727.03 [facility] [address] [id number], [place] [address]- 3220 Sep, [facility] [address] [facility] [id number], [place] [address]- 8150 Sep, [facility] [address] [facility] [id number], [place] [address]- 9584 Aug, [facility] [address] [facility] [id number] [address]- 8864 Aug, [facility] [address] [id number], [place] [address]- 5437 Aug, [facility] [address] [id number], [place] [address]- 9999 Aug, [facility] [address] [id number], [place] [address]- 0925 Jul, [facility] [address] [id number], [place] [address]- 3435 Jul, [facility] [address] [id number], [place] [address]- 2509 Jul, [facility] [place] [facility] [address] [id number] [place] [address]- 0862 Jul, [facility] [place] [facility] [address] [id number] [place] [address]- 0767 14 Jun, 2014 [facility] [place] [facility] [address] [id number] [place] [address]- 6438 Jun, [facility] [place] [facility] [address] [id number] [place] [address]- 0711 18 May, 2014 [facility] [place] [facility] [address] [id number] [place] [address]- 6922 May, [facility] [place] [facility] [address] [id number] [place] [address]- 4118 May, [facility] [place] [facility] [address] [id number] [place] [address]- 2899 May, [facility] [place] [facility] [address] [id number] [place] [address]- 1487 Apr, [facility] [place] [facility] [address] [id number] [place] [address]- 9056 Apr, [facility] [place] [facility] [address] [id number] [place] [address]- 7139 Mar, [facility] [place] [facility] [address] [id number], [place] [address]- 0215 Mar, [facility] [place] [facility] [address] [id number], [place] [address]- 9089 Mar, [facility] [place] [facility] [address] [id number] [place] [address]- 7322 Mar, [facility] [place] [facility] [address] [id number], [place] [address]- 9670 Mar, [facility] [place] [facility] [address] [id number] [place] [address]- 5097 Mar, [facility] [place] [facility] [address] [id number] [place] [address]- 3729 07 Mar, 2013 [facility] [place] [facility] [address] [id number] [place] [address]- 0673 07 Mar, 2013 [facility] [place] [facility] [address] [id number] [place] [address]- 4156 25 Feb, 2013 [facility] [place] [facility] [address] [id number] [place] [address]- 6176 25 Feb, 2013 [facility] [place] [facility] [address] [id number] [place] [address]- 5672 18 Feb, 2013 [facility] [place] [facility] [address] [id number] [place] [address]- 9151 18 Feb, 2013 [facility] [place] [facility] [address] [id number] [place] [address]- 1588 10 Feb, 2013 [facility] [place] [facility] [address] [id number] [place] [address]- 9688 10 Feb, 2013 [facility] [place] [facility] [address] [id number] [place] [address]- 0059 05 Sep, 2013 [facility] [place] [facility] [address] [id number] [place] [address]- 2547 05 Feb, 2013 [facility] [place] [facility] [address] [id number] [place] [address]- 9640 05 Sep, 2013 [facility] [place] [facility] [address] [id number] [place] [address]- 2544 05 Sep, 2013 [facility] [place] [facility] [address] [id number] [place] [address]- 2548 03 Feb, 2013 [facility] [place] [facility] [address] [id number] [place] [address]- 2548 Feb, 2013 [facility] [place] [facility] [address] [id number] [place] [address]- 7454 Jan, [facility] [place] [facility] [address] [id number] [place] [address]- 4861 Jan, [facility] [place] [facility] [address] [id number] [place] [address]- 3955 Jan, [facility] [place] [facility] [address] [id number] [place] [address]- 2315 Jan, [facility] [place] [facility] [address] [id number] [place] [address]- 3048 Dec, [facility] [place] [facility] [address] [id number] [place] [address]- 4438 Dec, [facility] [place] [facility] [address] [id number] [place] [address]- 1387 Dec, [facility] [place] [facility] [address] [id number] [place] [address]- 2962 Dec, [facility] [place] [facility] [address] [id number] [place] [address]- 1025 Dec, [facility] [place] [facility] [address] [id number] [place] [address]- 5138 Dec, [facility] [place] [facility] [address] [id number] [place] [address]- 3633 Dec, [facility] [place] [facility] [address] [id number] [place] [address]- 8133 Dec, [facility] [place] [facility] [address] [id number] [place] [address]- 4639 Dec, [facility] [place] [facility] [address] [id number] [place] [address]- 5623 Dec, [facility] [place] [facility] [address] [id number] [place] [address]- 2965 Dec, [facility] [place] [facility] [address] [id number] [place] [address]- 1630 Dec, [facility] [place] [facility] [address] [id number] [place] [address]- 6283 October, [facility] [place] [facility] [address] [id number] [place] [address]- 6494 October, [facility] [place] [facility] [address] [id number] [place] [address]- 0311 Aug, [facility] [place] [facility] [address] [id number] [place] [address]- 6209 19 Aug, 2013 [facility] [place] [facility] [address] [id number] [place] [address]- 9172 10 Aug, 2013 [facility] [place] [facility] [address] [id number] [place] [address]- 0374 10 Aug, 2013 [facility] [place] [facility] [address] [id number] [place] [address]- 4823 Jun, [facility] [place] [facility] [address] [id number] [place] [address]- 3492 31 Jun, 2013 [facility] [place] [facility] [address] [id number] [place] [address]- 8596 15 Jun, 2013 [facility] [place] [facility] [address] [id number] [place] [address]- 1030 15 Jun, 2013 [facility] [place] [facility] [address] [id number] [place] [address]- 3532 14 Jun, 2013 [facility] [place] [facility] [address] [id number] [place] [address]- 8953 14 Jun, 2013 [facility] [place] [facility] [address] [id number] [place] [address]- 7009 14 Jun, 2013 [facility] [place] [facility] [address] [id number] [place] [address]- 5773 14 Jun, 2013 [facility] [place] [facility] [address] [id number] [place] [address]- 1659 May, [facility] [place] [facility] [address] [id number] [place] [address]- 3125 May, [facility] [place] [facility] [address] [id number] [place] [address]- 0928 Apr, [facility] [place] [facility] [address] [id number] [place] [address]- 6334 Apr, [facility] [place] [facility] [address] [id number] [place] [address]- 5857 15 Apr, 2013 [facility] [place] [facility] [address] [id number] [place] [address]- 1787 Apr, [facility] [place] [facility] [address] [id number] [place] [address]- 6209 Apr, [facility] [place] [facility] [address] [id number] [place] [address]- 4333 Mar, [facility] [place] [facility] [address] [id number] [place] [address]- 7038 Mar, [facility] [place] [facility] [address] [id number] [place] [address]- 6351 Mar, [facility] [place] [facility] [address] [id number] [place] [address]- 6573 Mar, [facility] [place] [facility] [address] [id number] [place] [address]- 8243 Feb, [facility] [place] [facility] [address] [id number] [place] [address]- 6012 Jan, [facility] [place] [facility] [address] [id number] [place] [address]- 4167 Dec, [facility] [place] [facility] [address] [id number] [place] [address]- 6967 Dec, [facility] [place] [facility] [address] [id number] [place] [address]- 7251 Dec, [facility] [place] [facility] [address] [id number] [place] [address]- 8222 Dec, [facility] [place] [facility] [address] [id number] [place] [address]- 6945 Nov, [facility] [place] [facility] [address] [id number] [place] [address]- 4534 October, [facility] [address] [id number] [place] [address]- 1301 October, [facility] [address] [id number] [place] [address]- 1059 October, [facility] [address] [id number] [place] [address]- 7586 October, [facility] [address] [id number] [place] [address]- 3735 October, [facility] [address] [id number] [place] [address]- 4578 October, [facility] [address] [id number] [place] [address]- 4300 October, [facility] [address] [id number] [place] [address]- 2709 October, [facility] [address] [id number] [place] [address]- 4170 Sep, [facility] [address] [id number] [place] [address]- 4632 Sep, [facility] [place] [facility] [address] [id number] [place] [address]- 1956 Sep, [facility] [address] [id number] [place] [address]- 8195 31 Aug, 2012 [facility] [place] [facility] [address] [id number] [place] [address]- 9348 29 Aug, 2012 [facility] [place] [facility] [address] [id number] [place] [address]- 6344 28 Aug, 2012 [facility] [place] [facility] [address] [id number] [place] [address]- 8525 27 Aug, 2012 [facility] [place] [facility] [address] [id number] [place] [address]- 9924 14 Aug, 2012 [facility] [place] [facility] [address] [id number] [place] [address] Aug, [facility] [address] [id number] [place] [address] Jul, [facility] [place] [facility] [address] [id number] [place] [address] Jun, [facility] [address] [id number] [place] [address] Mar, [facility] [place] [facility] [address] [id number] [place] [address] Mar, [facility] [address] [id number] [place] [address], [place] [address] Mar, [facility] [place] [facility] [address] [id number] [place] [address] Mar, [facility] [place] [facility] [address] [id number] [place] [address] 1669 Mar, [facility] [address] [id number] [place] [address] Feb, [facility] [place] [facility] [address] [id number] [place] [address] 24 Feb, 2012 [facility] [address] [id number] [place] [address] Feb, [facility] [place] [facility] [address] [id number] [place] [address] Feb, [facility] [place] [facility] [address] [id number] [place] [address] 74[address] Feb, [facility] [place] [facility] [address] [id number] [place] [address] Jan, [facility] [place] [facility] [address] [id number] [place] [address] Nov, [facility] [place] [facility] [address] [facility] [id number] [place] [address] Nov, [facility] [address] [id number] [place] [address] 05 Nov, 2011 [facility] [place] [facility] [address] [id number] [place] [address] 30 Sep, 2011 [facility] [place] [facility] [address] [id number] [place] [address] Sep, [facility] [place] [facility] [address] [id number] [place] [address] 4[address] Sep, [facility] [address] [id number] [place] [address] 3696 Aug, [facility] [place] [facility] [address] [id number] [place] [address]- 4306 Aug, [facility] [address] [id number] [place] [address] 6256 08 Jul, 2011 [facility] [address] [id number] [place] [address] Jul, [facility] [address] [id number] [place] [address] 0896 Jun, [facility] [address] [id number] [place] [address] 37[address] Jun, [facility] [address] [id number] [place] [address] May, [facility] [place] [facility] [address] [id number] [place] [address] May, [facility] [place] [facility] [address] [id number] [place] [address] 20 May, 2011 [facility] [place] [facility] [address] [id number] [place] [address]- [address] 14 May, 2011 [facility] [place] [facility] [address] [id number] [place] [address]- [address] 14 May, 2011 [facility] [place] [facility] [address] [id number] [place] [address] Apr, [facility] [address] [id number] [place] [address] Aug, [facility] [place] [facility] [address] [id number] [place] [address] Jul, [facility] [place] [facility] [address] [id number] [place] [address]604 Apr, [facility] [place] [facility] [address] [id number] [place] [address] Apr, [facility] [place] [facility] [address] [id number] [place] [address] Apr, [facility] [place] [facility] [address] [id number] [place] [address] 14 Mar, 2010 [facility] [place] [facility] [address] [id number] [place] [address] Jan, [facility] [place] [facility] [address] [id number] [place] [address] 16 Sep, 2009 [facility] [place] [facility] [address] [id number] [place] [address] Jun, [facility] [place] [facility] [address] [facility] [id number] [place] [address] 6704 May, [facility] [place] [facility] [address] [id number] [place] [address]244 07 May, 2009 [facility] [place] [facility] [address] [id number] [address] May, [facility] [place] [facility] [address] [id number], [place] [address] 29 Mar, 2009 [facility] [place] [facility] [address] [id number] [place] [address] 10 Feb, 2009 [facility] [place] [facility] [address] [id number], [place] [address] 11 Nov, 2008 [facility] [place] [facility] [address] [facility] [id number] [place] [address] Aug, IMMUNIZATIONS No Known Immunizations SOCIAL HISTORY Never Assessed REASON FOR VISIT referral PLAN OF CARE VITAL SIGNS MEDICATIONS Unknown [...] finger release Hospitalization History [facility] at in [place] September 2016
--- OUTSIDE RECORDS SUMMARY | 2018-06-01 16:29 | XMS REPORT ---
Author Author EUGENIO BELTRAN Organization [facility] Address [address] [place] [address] Care Team Providers Care Manager E Learning Name Role Phone EUGENIO BELTRAN Unavailable PROBLEMS Type Condition ICD9-CM Code SLL65-EA Code Onset Dates Condition Status SNOMED Code Problem Dysthymia F34.1 Active 59370680 Problem Rheumatoid arthritis M06.9 Active 38230984 Problem Hypothyroid E03.9 Active 62227762 Problem Primary osteoarthritis involving multiple joints M15.0 Active 563799648 Problem History of breast cancer Z85.3 Active 400721686 Problem Diabetes E11.9 Active 53034686 ALLERGIES No Information ENCOUNTERS Encounter Location Date Diagnosis [place] [address] [address]- [address] Sep, [place] [address] [address]- 9412 Aug, [place] [address] [place] [id number] [place] [address] 34780- 6495 Jul, [facility] [address] [place] [id number] [place] [address] 86536- 8549 Jul, [place] [address] [place] [id number] [place] [address] 96797- 5416 Jul, [facility] [address] [place] [id number] [place] [address] 96512- 0851 Jul, Diabetes E11.9 and Dysthymia F34.1 [facility] [address] [place] [id number] [place] [address] 44346- 5698 Jul, [place] [address] 74508- 8859 Jun, Callus L84 and Diabetes E11.9 [facility] [address], [place] [address] 3452 May, [facility] [address] [place] [id number] [place] [address] 18446- 6173 Apr, [facility] [id number] [address]- 9841 Apr, [facility] [address] [place] [id number] [place] [address] 80202- 6485 Apr, Diabetes E11.9 ; Hypothyroid E03.9 ; Dysthymia F34.1 ; Tobacco abuse Z72.0 ; Colon cancer screening Z12.11 and Encounter for immunization Z23 [facility] [address] [address] [id number] [address] 2615 Dec, [facility] [address] [place] [id number] [place] [address] 08931- 9720 Dec, [facility] [address], [place] [address]- 0155 Dec, Hypothyroid E03.9 and Diabetes E11.9 [facility] [address] [place] [address] [id number] [address]- 3676 Nov, [facility] [address], [place] [address]- 4492 Nov, [facility] [address] [place] [address] [id number] [address]- 2255 Nov, [facility] [address], [place] [address]- 0772 Nov, Hypothyroid E03.9 [facility] [address] [place] [address] [id number] [address]- 3678 October, Hypothyroid E03.9 [facility] [address], [place] [address]- 4359 October, Diabetes E11.9 [facility] [address], [place] [address]- 1053 Aug, Hypothyroid E03.9 [facility] [address] [place] [id number] [place] [address] 82141- 5928 Aug, Hypothyroid E03.9 [facility] [id number] [place] [address] 34415- 1602 Apr, Hypothyroid E03.9 [facility] [address] [place] [id number] [place] [address] 73526- 4303 Apr, Diabetes E11.9 and Hypothyroid E03.9 [facility] [address] [place] [id number] [place] [address] 84336- 8310 Mar, Encounter for immunization Z23 [facility] [address] [place] [id number] [place] [address] 54462- 3978 Feb, Diabetes E11.9 [facility] [address] [place] [id number] [place] [address] 15514- 3704 Jan, [facility] [address] [place] [id number] [place] [address] 40903- 5857 Jan, [facility] [address] [place] [id number] [place] [address] 92023- 7717 Jan, Diabetes E11.9 [facility] [address], [place] [address]- 5175 Dec, Trigger middle finger of right hand M65.331 ; Trigger finger of right thumb M65.311 ; Trigger finger of left thumb M65.312 and Trigger ring finger of left hand M65.342 [facility] [address], [place] [address]- 8704 Dec, [facility] [id number] [place] [address] 48535- 1208 Dec, Hypothyroid E03.9 [facility] [address], [place] [address]- 7673 Nov, [facility] [address] [facility] [id number] [place] [address] October, [facility] [address] [facility] [id number] [place] 4219 October, Hypothyroid E03.9 [facility] [address] [facility] [id number] [place]83 October, [facility] [address] [facility] [id number] [place] [address]- 4248 Sep, Hypothyroid E03.9 and Diabetes E11.9 [facility] [address] [facility] [id number] [place] [address]- 6096 Sep, Diabetes E11.9 and Hypothyroid E03.9 [facility] [address] [facility] [id number] [place] [address]- 7957 Sep, [facility] [address] [place] [id number] [address]- 8965 Aug, [facility] [address] [facility] [id number] [place] [address]- 3968 Aug, [facility] [address] [place] [id number] [address]- 1905 Aug, [facility] [address] [place] [id number] 9229 Aug, [facility] [address] [place] [address]- 0921 Aug, [facility] [address] [facility] [id number] [place] 8470 Jul, [facility] [address] [place] [id number] [address]- 7507 Jun, [facility] [address] [place] [id number] [address]- 9336 Jun, Rheumatoid arthritis involving multiple sites with positive rheumatoid factor M05.79 [facility] [address] [place] [id number] [address]- 1153 15 Jun, 2015 [facility] [address] 6218 May, [facility] [address] 7511 May, Rheumatoid arthritis involving multiple sites with positive rheumatoid factor M05.79 [facility] [address] [place] [id number] [place] [address] 72553- 1006 May, [facility] [address] 1702 May, Rheumatoid arthritis involving multiple sites with positive rheumatoid factor M05.79 [facility] [address] [place] [address] 472594- 4642 Apr, Diabetes E11.9 ; Long-term insulin use Z79.4 ; Insulin pump in place Z96.41 ; Arthralgia of hand, unspecified laterality M79.643 and History of breast cancer Z85.3 [facility] [address], [place] [address]- 7840 Apr, [facility] [address], [place] [address]- 7802 Mar, [facility] [address] [place] [id number] [address]- 3923 Mar, [facility] [address] [place] [id number] [address]- 5112 Feb, UTI (urinary tract infection) 599.0 [facility] [address] [place] [id number] [address]- 8336 Feb, UTI (urinary tract infection) 599.0 [facility] [address] [place] [id number] [address]- 8076 Feb, UTI (urinary tract infection) 599.0 [facility] [address], [place] [address]- 3643 28 Feb, 2015 UTI (urinary tract infection) 599.0 [facility] [address] [id number] [address]- 9098 22 Feb, 2015 [facility] [address] [facility] [id number], [place] [address]- 4146 17 Feb, 2015 [facility] [address] [facility] [id number], [place] [address]- 4428 15 Feb, 2015 [facility] [address] [facility] [id number], [place] [address]- 0249 14 Feb, 2015 [facility] [address] [place] [id number] [place] [address] 36711- 9164 11 Nov, 2014 Trigger finger of right hand 727.03 [facility] [address] [place] [id number] [address]- 6645 14 Sep, 2014 [facility] [address] [place] [id number] [place] [address] 36222- 7000 Sep, [facility] [address] [facility] [id number], [place] [address]- 4951 Aug, [facility] [address] [place] [id number] [address]- 8906 Aug, [facility] [address] [place] [address] [id number], [place] [address]- 2681 Aug, [facility] [address] [place] [address] [id number], [place] [address]- 1546 Aug, [facility] [address] [facility] [id number] [address]- 8807 Jul, [facility] [address] [facility] [id number], [place] [address]- 9181 Jul, [facility] [address] [facility] [id number], [place] [address]- 7701 Jul, [facility] [address] [place] [address] [id number], [place] [address]- 9218 Jul, [facility] [place] [facility] [address] [id number] [place] [address]- 3953 14 Jun, 2014 [facility] [place] [facility] [address] [id number] [place] [address]- 4304 14 Jun, 2014 [facility] [place] [facility] [address] [facility] [id number] [place] 0009 May, [facility] [place] [facility] [address] [id number] [place] [address]- 3357 May, [facility] [place] [facility] [address] [id number] [place] [address]- 6908 May, [facility] [place] [facility] [address] [id number] [place] [address]- 2011 May, [facility] [place] [facility] [address] [id number] [place] [address]- 6887 Apr, [facility] [place] [facility] [address] [id number] [place] [address]- 1741 Apr, [facility] [place] [facility] [address] [id number] [place] [address]- 4668 Mar, [facility] [place] [facility] [address] [id number] [place] [address]- 5278 Mar, [facility] [place] [facility] [address] [id number], [place] [address]- 6819 14 Mar, 2014 [facility] [place] [facility] [address] [id number], [place] [address]- 8403 Mar, [facility] [place] [facility] [address] [id number] [place] [address]- 9874 Mar, [facility] [place] [facility] [address] [id number], [place] [address]- 4372 Mar, [facility] [place] [facility] [address] [id number], [place] [address]- 7482 Mar, [facility] [place] [facility] [address] [id number] [place] [address]- 1031 07 Mar, 2013 [facility] [place] [facility] [address] [id number] [place] [address]- 7428 25 Feb, 2013 [facility] [place] [facility] [address] [id number] [place] [address]- 2546 25 Feb, 2013 [facility] [place] [facility] [address] [id number] [place] [address]- 3681 18 Feb, 2013 [facility] [place] [facility] [address] [id number] [place] [address]- 254 18 Feb, 2013 [facility] [place] [facility] [address] [id number] [place] [address]- 6418 10 Feb, 2013 [facility] [place] [facility] [address] [id number] [place] [address]- 3616 10 Feb, 2013 [facility] [place] [facility] [address] [id number] [place] [address]- 9554 05 Feb, 2013 [facility] [place] [facility] [address] [id number] [place] [address]- 7979 05 Feb, 2013 [facility] [place] [facility] [address] [id number] [place] [address]- 2548 05 Feb, 2013 [facility] [place] [facility] [address] [id number] [place] [address]- 2543 05 Feb, 2013 [facility] [place] [facility] [address] [id number] [place] [address]- 2542 03 Feb, 2013 [facility] [place] [facility] [address] [id number] [place] [address]- 2692 03 Feb, 2013 [facility] [place] [facility] [address] [id number] [place] [address]- 9476 Jan, [facility] [place] [facility] [address] [id number] [place] [address]- 0681 Jan, [facility] [place] [facility] [address] [id number] [place] [address]- 1888 Jan, [facility] [place] [facility] [address] [id number] [place] [address]- 2721 Jan, [facility] [place] [facility] [address] [id number] [place] [address]- 4144 Dec, [facility] [place] [facility] [address] [id number] [place] [address]- 1160 Dec, [facility] [place] [facility] [address] [id number] [place] [address]- 5117 Dec, [facility] [place] [facility] [address] [id number] [place] [address]- 9686 Dec, [facility] [place] [facility] [address] [id number] [place] [address]- 4422 Dec, [facility] [place] [facility] [address] [id number] [place] [address]- 7873 Dec, [facility] [place] [facility] [address] [id number] [place] [address]- 7159 Dec, [facility] [place] [facility] [address] [id number] [place] [address]- 9994 Dec, [facility] [place] [facility] [address] [id number] [place] [address]- 2408 Dec, [facility] [place] [facility] [address] [id number] [place] [address]- 7589 Dec, [facility] [place] [facility] [address] [id number] [place] [address]- 2258 Dec, [facility] [place] [facility] [address] [id number] [place] [address]- 1665 Dec, [facility] [place] [facility] [address] [id number] [place] [address]- 9616 October, [facility] [place] [facility] [address] [id number] [place] [address]- 6196 October, [facility] [place] [facility] [address] [id number] [place] [address]- 2655 19 Aug, 2013 [facility] [place] [facility] [address] [id number] [place] [address]- 4506 19 Aug, 2013 [facility] [place] [facility] [address] [id number] [place] [address]- 7346 10 Aug, 2013 [facility] [place] [facility] [address] [id number] [place] [address]- 5556 10 Aug, 2013 [facility] [place] [facility] [address] [id number] [place] [address]- 8515 Jun, [facility] [place] [facility] [address] [id number] [place] [address]- 5407 31 Jun, 2013 [facility] [place] [facility] [address] [id number] [place] [address]- 2393 15 Jun, 2013 [facility] [place] [facility] [address] [id number] [place] [address]- 5079 15 Jun, 2013 [facility] [place] [facility] [address] [id number] [place] [address]- 1604 14 Jun, 2013 [facility] [place] [facility] [address] [id number] [place] [address]- 6758 14 Jun, 2013 [facility] [place] [facility] [address] [id number] [place] [address]- 7627 14 Jun, 2013 [facility] [place] [facility] [address] [id number] [place] [address]- 7586 14 Jun, 2013 [facility] [place] [facility] [address] [id number] [place] [address]- 5147 May, [facility] [place] [facility] [address] [id number] [place] [address]- 8369 May, [facility] [place] [facility] [address] [id number] [place] [address]- 6225 Apr, [facility] [place] [facility] [address] [id number] [place] [address]- 0167 Apr, [facility] [place] [facility] [address] [id number] [place] [address]- 2546 15 Apr, 2013 [facility] [address] [id number] [place] [address]- 6382 14 Apr, 2013 [facility] [place] [facility] [address] [id number] [place] [address]- 2546 Apr, [facility] [place] [facility] [address] [id number] [place] [address]- 1166 Mar, [facility] [place] [facility] [address] [id number] [place] [address] 254 Mar, [facility] [place] [facility] [address] [id number] [place] [address]- 9027 Mar, [facility] [place] [facility] [address] [id number] [place] [address]- 7414 Mar, [facility] [place] [facility] [address] [id number] [place] [address]- 8811 Feb, [facility] [place] [facility] [address] [id number] [place] [address]- 5267 Jan, [facility] [place] [facility] [address] [id number] [place] [address]- 4101 Dec, [facility] [place] [facility] [address] [id number] [place] [address]- 4246 Dec, [facility] [place] [facility] [address] [id number] [place] [address]- 2548 Dec, [facility] [place] [facility] [address] [id number] [place] [address]- 2546 Dec, [facility] [place] [facility] [address] [id number] [place] [address]- 2546 Nov, [facility] [place] [facility] [address] [id number] [place] [address]- 2546 October, [facility] [place] [facility] [address] [id number] [place] [address]- 2774 October, [facility] [address] [id number] [place] [address]- 4257 October, [facility] [address] [id number] [place] [address]- 9774 October, [facility] [address] [id number] [place] [address]- 8845 October, [facility] [address] [id number] [place] [address]- 8558 October, [facility] [address] [id number] [place] [address]- 5481 October, [facility] [address] [id number] [place] [address]- 9184 October, [facility] [address] [id number] [place] [address]- 7164 Sep, [facility] [address] [id number] [place] [address]- 0368 Sep, [facility] [address] [id number] [place] [address]- 4547 Sep, [facility] [address] [id number] [place] [address]- 3951 31 Aug, 2012 [facility] [address] [id number] [place] [address]- 2707 29 Aug, 2012 [facility] [place] [facility] [address] [id number] [place] [address]- 3936 28 Aug, 2012 [facility] [place] [facility] [address] [id number] [place] [address]- 5385 27 Aug, 2012 [facility] [place] [facility] [address] [id number] [place] [address]- 0072 14 Aug, 2012 [facility] [place] [facility] [address] [id number] [place] [address]- 3208 05 Aug, 2012 [facility] [place] [facility] [address] [id number] [place] [address]- 3393 Jul, [facility] [place] [facility] [address] [id number] [place] [address]- 1100 Jun, [facility] [place] [facility] [address] [id number] [place] [address]- 6657 Mar, [facility] [place] [facility] [address] [id number] [place] [address]- 6607 Mar, [facility] [place] [facility] [address] [id number] [place] [address]- 6774 Mar, [facility] [place] [facility] [address] [id number] [place] [address]- 6551 Mar, [facility] [place] [facility] [address] [id number] [place] [address]- 6964 Mar, [facility] [place] [facility] [address] [id number] [place] [address]- 8793 25 Feb, 2012 [facility] [place] [facility] [address] [id number] [place] [address]- 2718 24 Feb, 2012 [facility] [place] [facility] [address] [id number] [place] [address]- 2208 20 Feb, 2012 [facility] [place] [facility] [address] [id number] [place] [address]- 9206 Feb, [facility] [place] [facility] [address] [id number] [place] [address]- 3476 Feb, [facility] [place] [facility] [address] [id number] [place] [address] Jan, [facility] [place] [facility] [address] [id number] [place] [address] Nov, [facility] [place] [facility] [address] [id number] [place] [address] Nov, [facility] [place] [facility] [address] [id number] [place] [address] Nov, [facility] [place] [facility] [address] [id number] [place] [address] 30 Sep, 2011 [facility] [address] [id number] [place] [address] Sep, [facility] [place] [facility] [address] [id number] [place] [address] Sep, [facility] [place] [facility] [address] [id number] [place] [address] Aug, [facility] [address] [id number] [place] [address] Aug, [facility] [place] [facility] [address] [id number] [place] [address] 08 Jul, 2011 [facility] [address] [id number] [place] [address] Jul, [facility] [address] [id number] [place] [address] Jun, [facility] [address] [id number] [place] [address] Jun, [facility] [address] [id number] [place] [address] May, [facility] [address] [id number] [place] [address] May, [facility] [place] [facility] [address] [id number] [place] [address] May, [facility] [place] [facility] [address] [id number] [place] [address] May, [facility] [place] [facility] [address] [id number] [place] [address] May, [facility] [place] [facility] [address] [id number] [place] [address] Apr, [facility] [place] [facility] [address] [id number], [place] [address] Aug, [facility] [address] [facility] [id number], [place] [address] Jul, [facility] [address] [facility] [id number], [place] [address] Apr, [facility] [address] [facility] [id number], [place] [address] Apr, [facility] [address] [facility] [id number], [place] [address] Apr, [facility] [address] [facility] [id number][place] [address] Mar, [facility] [address] [facility] [id number][place] [address] Jan, [facility] [id number] [address] Sep, [facility] [address] [facility] [id number], [place] [address] Jun, [facility] [id number], [place] [address] May, [facility] [address] [facility] [id number], [place] [address] May, [facility] [address] [facility] [id number][place] [address] May, [facility] [address] [facility] [id number], [place] [address] Mar, [facility] [address] [facility] [id number], [place] [address] Feb, [facility] [address] [facility] [id number], [place] [address] Nov, [facility] [address] [facility] [id number] [address] Aug, IMMUNIZATIONS No Known Immunizations SOCIAL HISTORY Never Assessed REASON FOR VISIT Refill request PLAN OF CARE VITAL SIGNS MEDICATIONS Medication Instructions Dosage Frequency Start Date End Date Duration Status NovoLog 100 UNIT/ML Subcutaneous per pump as [...] finger release Hospitalization History DKA at in [place] September 2016
--- OUTSIDE RECORDS SUMMARY | 2018-06-01 16:30 | XMS REPORT ---
Author Author EUGENIO BELTRAN [facility] Address [address] [place] [address] Care Team Providers Care Motor Builder Assembler Name Role Phone EUGENIO BELTRAN Unavailable PROBLEMS Type Condition ICD9-CM Code [id number] Code Onset Dates Condition Status SNOMED Code Problem Diabetes E11.9 Active 56154085 Problem Hypothyroid E03.9 Active 73271348 Problem Primary osteoarthritis involving multiple joints M15.0 Active 264039619 Problem Rheumatoid arthritis M06.9 Active 20830892 Problem History of breast cancer Z85.3 Active 449739410 ALLERGIES No Information SOCIAL HISTORY Never Assessed PLAN OF CARE VITAL SIGNS MEDICATIONS Unknown Medications RESULTS Name Result Date Reference Range TSH 2016-11-23 TSH 0.198 0.450-4.500 PROCEDURES Procedure Date Ordered Result Body Site ASSAY THYROID STIM HORMONE November 23, 2016 VENIPUNCT, ROUTINE* November 23, 2016 IMMUNIZATIONS No Known Immunizations MEDICAL (GENERAL) HISTORY Type Description Date Medical History DM Medical History Cholecystectomy Medical History Breast Cancer 04/2012 Surgical History post cholecystectomy Surgical History Hysterectomy Surgical History Masectomy Surgical History section x 3 Surgical History carpal tunnel release bilateral Surgical History bilateral trigger finger release Hospitalization History DKA at in [place] September 2016
--- OUTSIDE RECORDS SUMMARY | 2018-06-01 16:30 | XMS REPORT ---
Author Author EUGENIO BELTRAN Organization [facility] Address [address] [place] [address] Care Team Providers Care Recordist Chief Name Role Phone EUGENIO BELTRAN Unavailable PROBLEMS Type Condition ICD9-CM Code IYY39-NS Code Onset Dates Condition Status SNOMED Code Problem Dysthymia F34.1 Active 03179550 Problem Rheumatoid arthritis M06.9 Active 89504621 Problem Hypothyroid E03.9 Active 88104806 Problem Primary osteoarthritis involving multiple joints M15.0 Active 753924349 Problem History of breast cancer Z85.3 Active 281080886 Problem Diabetes E11.9 Active [id number] ALLERGIES No Information ENCOUNTERS Encounter Location Date Diagnosis [place] [id number] [place] [address] 29344- 4674 Sep, Diabetes E11.9 [facility] [id number] [place] [address] 22028- 8105 Sep, [facility] [id number] [place] [address] 21309- 4739 Aug, [facility] [id number] [place] [address] 60064- 0847 Jul, [facility] [id number] [place] [address] 78444- 8282 Jul, [facility] [id number] [place] [address] 58550- 9190 Jul, [facility] [id number] [place] [address] 08754- 6010 Jul, Diabetes E11.9 and Dysthymia F34.1 [facility] [id number] [place] [address] 65019- 3435 Jul, [facility] [address], [place] [address] 5423 Jun, Callus L84 and Diabetes E11.9 [facility] [id number] [place] [address] 48107- 5848 May, [facility] [id number] [place] [address] 13742- 6819 Apr, [facility] [id number] [place] [address] 58862- 5645 Apr, [facility] [id number] [place] [address] 92951- 8523 Apr, Diabetes E11.9 ; Hypothyroid E03.9 ; Dysthymia F34.1 ; Tobacco abuse Z72.0 ; Colon cancer screening Z12.11 and Encounter for immunization Z23 [facility] [id number] [place] [address] 89012- 8508 Dec, [facility] [id number] [place] [address] 05694- 0322 Dec, [facility] [id number] [place] [address] 73921- 7824 Dec, Hypothyroid E03.9 and Diabetes E11.9 [facility] [id number] [place] [address] 39590- 2662 Nov, [facility] [id number] [place] [address] 37328- 6998 Nov, [facility] [id number] [place] [address] 78654- 4025 Nov, [facility] [id number] [place] [address] 57898- 1901 Nov, Hypothyroid E03.9 [facility] [id number] [address] 4594 October, Hypothyroid E03.9 [facility] [address], [place] [address]- 5288 October, Diabetes E11.9 [facility] [id number] [place] [address] 84188- 8349 Aug, Hypothyroid E03.9 [facility] [address] [address]- 6757 Aug, Hypothyroid E03.9 [facility] [id number] [place] [address] 39102- 8898 Apr, Hypothyroid E03.9 [facility] [id number] [place] [address] 33103- 3463 Apr, Diabetes E11.9 and Hypothyroid E03.9 [facility] [id number] [place] [address] 45677- 6551 Mar, Encounter for immunization Z23 [facility] [id number] [place] [address] 77673- 8967 Feb, Diabetes E11.9 [facility] [id number] [place] [address] 46015- 6389 Jan, [facility] [id number] [place] [address] 10284- 8704 Jan, [facility] [address], [place] [address]- 0459 Jan, Diabetes E11.9 [facility] [address], [place] [address]- 7607 Dec, Trigger middle finger of right hand M65.331 ; Trigger finger of right thumb M65.311 ; Trigger finger of left thumb M65.312 and Trigger ring finger of left hand M65.342 [facility] [address], [place] [address]- 6525 Dec, [facility] [address], [place] [address]- 4403 Dec, Hypothyroid E03.9 [facility] [address] [id number] [place] [address]- 7379 Nov, [facility] [address] [facility] [place] [id number] [place] [address]- 8038 October, [facility] [address] [facility] [place] [id number] [place] [address]- 2471 October, Hypothyroid E03.9 [facility] [address] [facility] [place] [id number] [place] [address]- 1980 October, [facility] [address] [facility] [place] [id number] [place] [address]- 5870 Sep, Hypothyroid E03.9 and Diabetes E11.9 [facility] [address] [facility] [place] [id number] [place] [address]- 4924 Sep, Diabetes E11.9 and Hypothyroid E03.9 [facility] [address] [facility] [place] [id number] [place] [address]- 4471 Sep, [facility] [id number] [address]- 4010 Aug, [facility] [address] [facility] [place] [id number] [place] [address]- 5857 Aug, [facility] [address] [facility] [place] [id number] [place] [address]- 8050 Aug, [facility] [address] [facility] [place] [id number] [place] [address]- 1712 Aug, [facility] [address] [facility] [place] [id number] [place] 5064 Aug, [facility] [address] [facility] [place] [id number] [place] 7938 Jul, [facility] [address] [facility] [place] [id number] [place] [address]- 6810 Jun, [facility] [address] [facility] [id number], [place] [address]- 3561 Jun, Rheumatoid arthritis involving multiple sites with positive rheumatoid factor M05.79 [facility] [address] [facility] [place] [id number], [place] [address]- 6589 Jun, [facility] [address] [facility] [id number] [address]- 6809 May, [facility] [address], [place] [address]- 2633 May, Rheumatoid arthritis involving multiple sites with positive rheumatoid factor M05.79 [facility] [id number] 8332 May, [facility] [id number] [place] [address] 74244- 6195 May, Rheumatoid arthritis involving multiple sites with positive rheumatoid factor M05.79 [place] [id number] [place] [address] 61658- 1800 Apr, Diabetes E11.9 ; Long-term insulin use Z79.4 ; Insulin pump in place Z96.41 ; Arthralgia of hand, unspecified laterality M79.643 and History of breast cancer Z85.3 [place] [id number], [place] [address]- 9510 Apr, [place] [id number], [place] [address]- 9628 Mar, [facility] [id number], [place] [address]- 0030 Mar, [facility] [id number], [place] [address]- 0322 Feb, UTI (urinary tract infection) 599.0 [place] [id number] 0740 Feb, UTI (urinary tract infection) 599.0 [facility] [id number], [place] [address]- 1829 Feb, UTI (urinary tract infection) 599.0 [facility] [address] [id number], [place] [address]- 8215 28 Feb, 2015 UTI (urinary tract infection) 599.0 [facility] [address] [id number], [place] [address]- 7497 22 Feb, 2015 [facility] [address] [id number], [place] [address]- 8931 17 Feb, 2015 [facility] [address] [id number], [place] [address]- 9360 15 Feb, 2015 [facility] [address] [id number], [place] [address]- 1465 14 Feb, 2015 [facility] [address] [facility] [place] [id number], [place] [address]- 0814 Nov, Trigger finger of right hand 727.03 [facility] [address] [id number], [place] [address]- 9305 Sep, [facility] [address] [facility] [place] [id number], [place] [address]- 6971 Sep, [facility] [address] [facility] [place] [id number], [place] [address]- 6493 Aug, [facility] [address] [facility] [place] [id number], [place] [address]- 6844 Aug, [facility] [address] [id number], [place] [address]- 8017 Aug, [facility] [address] [id number], [place] [address]- 8747 Aug, [facility] [address] [id number], [place] [address]- 6176 Jul, [facility] [address] [id number], [place] [address]- 4560 Jul, [facility] [address] [id number], [place] [address]- 5444 Jul, [facility] [place] [facility] [address] [id number] [place] [address]- 7602 Jul, [facility] [place] [facility] [address] [id number] [place] [address]- 4739 14 Jun, 2014 [facility] [place] [facility] [address] [id number] [place] [address]- 2708 Jun, [facility] [place] [facility] [address] [id number] [place] [address]- 1445 18 May, 2014 [facility] [place] [facility] [address] [id number] [place] [address]- 2460 May, [facility] [place] [facility] [address] [id number] [place] [address]- 1146 May, [facility] [place] [facility] [address] [id number] [place] [address]- 7755 May, [facility] [place] [facility] [address] [id number] [place] [address]- 6878 Apr, [facility] [place] [facility] [address] [id number] [place] [address]- 1994 Apr, [facility] [place] [facility] [address] [id number] [place] [address]- 6418 Mar, [facility] [place] [facility] [address] [id number], [place] [address]- 3554 Mar, [facility] [place] [facility] [address] [id number], [place] [address]- 8143 Mar, [facility] [place] [facility] [address] [id number] [place] [address]- 5533 Mar, [facility] [place] [facility] [address] [id number], [place] [address]- 0733 Mar, [facility] [place] [facility] [address] [id number] [place] [address]- 5843 Mar, [facility] [place] [facility] [address] [id number] [place] [address]- 7594 07 Mar, 2013 [facility] [place] [facility] [address] [id number] [place] [address]- 7030 07 Mar, 2013 [facility] [place] [facility] [address] [id number] [place] [address]- 2386 25 Feb, 2013 [facility] [place] [facility] [address] [id number] [place] [address]- 5226 25 Feb, 2013 [facility] [place] [facility] [address] [id number] [place] [address]- 8957 18 Feb, 2013 [facility] [place] [facility] [address] [id number] [place] [address]- 4050 18 Feb, 2013 [facility] [place] [facility] [address] [id number] [place] [address]- 5019 10 Feb, 2013 [facility] [place] [facility] [address] [id number] [place] [address]- 7312 10 Feb, 2013 [facility] [place] [facility] [address] [id number] [place] [address]- 3536 05 Sep, 2013 [facility] [place] [facility] [address] [id number] [place] [address]- 2548 05 Feb, 2013 [facility] [place] [facility] [address] [id number] [place] [address]- 9191 05 Sep, 2013 [facility] [place] [facility] [address] [id number] [place] [address]- 2549 05 Sep, 2013 [facility] [place] [facility] [address] [id number] [place] [address]- 2544 03 Feb, 2013 [facility] [place] [facility] [address] [id number] [place] [address]- 254 Feb, 2013 [facility] [place] [facility] [address] [id number] [place] [address]- 8688 Jan, [facility] [place] [facility] [address] [id number] [place] [address]- 1387 Jan, [facility] [place] [facility] [address] [id number] [place] [address]- 4999 Jan, [facility] [place] [facility] [address] [id number] [place] [address]- 4650 Jan, [facility] [place] [facility] [address] [id number] [place] [address]- 8327 Dec, [facility] [place] [facility] [address] [id number] [place] [address]- 2920 Dec, [facility] [place] [facility] [address] [id number] [place] [address]- 0827 Dec, [facility] [place] [facility] [address] [id number] [place] [address]- 1629 Dec, [facility] [place] [facility] [address] [id number] [place] [address]- 8093 Dec, [facility] [place] [facility] [address] [id number] [place] [address]- 9864 Dec, [facility] [place] [facility] [address] [id number] [place] [address]- 4471 Dec, [facility] [place] [facility] [address] [id number] [place] [address]- 3520 Dec, [facility] [place] [facility] [address] [id number] [place] [address]- 4428 Dec, [facility] [place] [facility] [address] [id number] [place] [address]- 5119 Dec, [facility] [place] [facility] [address] [id number] [place] [address]- 6085 Dec, [facility] [place] [facility] [address] [id number] [place] [address]- 6760 Dec, [facility] [place] [facility] [address] [id number] [place] [address]- 8971 October, [facility] [place] [facility] [address] [id number] [place] [address]- 2466 October, [facility] [place] [facility] [address] [id number] [place] [address]- 5237 Aug, [facility] [place] [facility] [address] [id number] [place] [address]- 7830 19 Aug, 2013 [facility] [place] [facility] [address] [id number] [place] [address]- 2840 10 Aug, 2013 [facility] [place] [facility] [address] [id number] [place] [address]- 4380 10 Aug, 2013 [facility] [place] [facility] [address] [id number] [place] [address]- 2378 Jun, [facility] [place] [facility] [address] [id number] [place] [address]- 1427 31 Jun, 2013 [facility] [place] [facility] [address] [id number] [place] [address]- 7388 15 Jun, 2013 [facility] [place] [facility] [address] [id number] [place] [address]- 4016 15 Jun, 2013 [facility] [place] [facility] [address] [id number] [place] [address]- 3828 14 Jun, 2013 [facility] [place] [facility] [address] [id number] [place] [address]- 8906 14 Jun, 2013 [facility] [place] [facility] [address] [id number] [place] [address]- 1849 14 Jun, 2013 [facility] [place] [facility] [address] [id number] [place] [address]- 8781 14 Jun, 2013 [facility] [place] [facility] [address] [id number] [place] [address]- 7439 May, [facility] [place] [facility] [address] [id number] [place] [address]- 8746 May, [facility] [place] [facility] [address] [id number] [place] [address]- 5999 Apr, [facility] [place] [facility] [address] [id number] [place] [address]- 9568 Apr, [facility] [place] [facility] [address] [id number] [place] [address]- 9491 15 Apr, 2013 [facility] [place] [facility] [address] [id number] [place] [address]- 4589 Apr, [facility] [place] [facility] [address] [id number] [place] [address]- 1825 Apr, [facility] [place] [facility] [address] [id number] [place] [address]- 6319 Mar, [facility] [place] [facility] [address] [id number] [place] [address]- 9076 Mar, [facility] [place] [facility] [address] [id number] [place] [address]- 1999 Mar, [facility] [place] [facility] [address] [id number] [place] [address]- 6958 Mar, [facility] [place] [facility] [address] [id number] [place] [address]- 4551 Feb, [facility] [place] [facility] [address] [id number] [place] [address]- 1644 Jan, [facility] [place] [facility] [address] [id number] [place] [address]- 0825 Dec, [facility] [place] [facility] [address] [id number] [place] [address]- 4265 Dec, [facility] [place] [facility] [address] [id number] [place] [address]- 0647 Dec, [facility] [place] [facility] [address] [id number] [place] [address]- 7182 Dec, [facility] [place] [facility] [address] [id number] [place] [address]- 7122 Nov, [facility] [place] [facility] [address] [id number] [place] [address]- 7584 October, [facility] [address] [id number] [place] [address]- 8962 October, [facility] [address] [id number] [place] [address]- 3386 October, [facility] [address] [id number] [place] [address]- 8996 October, [facility] [address] [id number] [place] [address]- 9789 October, [facility] [address] [id number] [place] [address]- 3229 October, [facility] [address] [id number] [place] [address]- 3635 October, [facility] [address] [id number] [place] [address]- 4368 October, [facility] [address] [id number] [place] [address]- 7208 Sep, [facility] [address] [id number] [place] [address]- 6796 Sep, [facility] [place] [facility] [address] [id number] [place] [address]- 4125 Sep, [facility] [address] [id number] [place] [address]- 9560 31 Aug, 2012 [facility] [place] [facility] [address] [id number] [place] [address]- 2640 29 Aug, 2012 [facility] [place] [facility] [address] [id number] [place] [address]- 2544 28 Aug, 2012 [facility] [place] [facility] [address] [id number] [place] [address]- 9669 27 Aug, 2012 [facility] [place] [facility] [address] [id number] [place] [address]- 8977 14 Aug, 2012 [facility] [place] [facility] [address] [id number] [place] [address]- 9997 Aug, [facility] [address] [id number] [place] [address]- 3375 Jul, [facility] [place] [facility] [address] [id number] [place] [address] Jun, [facility] [address] [id number] [place] [address] Mar, [facility] [place] [facility] [address] [id number] [place] [address] Mar, [facility] [address] [id number] [place] [address], [place] [address] Mar, [facility] [place] [facility] [address] [id number] [place] [address] Mar, [facility] [place] [facility] [address] [id number] [place] [address] Mar, [facility] [address] [id number] [place] [address] Feb, [facility] [place] [facility] [address] [id number] [place] [address] 24 Feb, 2012 [facility] [address] [id number] [place] [address] Feb, [facility] [place] [facility] [address] [id number] [place] [address] Feb, [facility] [place] [facility] [address] [id number] [place] [address] Feb, [facility] [place] [facility] [address] [id number] [place] [address] Jan, [facility] [place] [facility] [address] [id number] [place] [address] Nov, [facility] [place] [facility] [address] [facility] [place] [id number] [place] [address] Nov, [facility] [address] [id number] [place] [address] 05 Nov, 2011 [facility] [place] [facility] [address] [id number] [place] [address] 30 Sep, 2011 [facility] [place] [facility] [address] [id number] [place] [address] 2016 Sep, [facility] [place] [facility] [address] [id number] [place] [address] Sep, [facility] [address] [id number] [place] [address] Aug, [facility] [place] [facility] [address] [id number] [place] [address] Aug, [facility] [address] [id number] [place] [address] 08 Jul, 2011 [facility] [address] [id number] [place] [address] Jul, [facility] [address] [id number] [place] [address] Jun, [facility] [address] [id number] [place] [address] Jun, [facility] [address] [id number] [place] [address] May, [facility] [place] [facility] [address] [id number] [place] [address] May, [facility] [place] [facility] [address] [id number] [place] [address] 20 May, 2011 [facility] [place] [facility] [address] [id number] [place] [address] 14 May, 2011 [facility] [place] [facility] [address] [id number] [place] [address]- [address] 14 May, 2011 [facility] [place] [facility] [address] [id number] [place] [address]- [address] Apr, [facility] [address] [id number] [place] [address] Aug, [facility] [place] [facility] [address] [id number] [place] [address] Jul, [facility] [place] [facility] [address] [id number] [place] [address] Apr, [facility] [place] [facility] [address] [id number] [place] [address] Apr, [facility] [place] [facility] [address] [id number] [place] [address] Apr, [facility] [place] [facility] [address] [id number] [place] [address] 14 Mar, 2010 [facility] [place] [facility] [address] [id number] [place] [address] Jan, [facility] [place] [facility] [address] [id number] [place] [address] 16 Sep, 2009 [facility] [place] [facility] [address] [id number] [place] [address] Jun, [facility] [place] [facility] [address] [facility] [place] [id number] [place] [address] May, [facility] [place] [facility] [address] [id number] [place] [address] 07 May, 2009 [facility] [place] [facility] [address] [id number], [place] [address] May, [facility] [place] [facility] [address] [id number], [place] [address] 29 Mar, 2009 [facility] [place] [facility] [address] [id number] [place] [address] 10 Feb, 2009 [facility] [place] [facility] [address] [id number], [place] [address] 11 Nov, 2008 [facility] [place] [facility] [address] [facility] [place] [id number] [place] [address] Aug, IMMUNIZATIONS No Known Immunizations SOCIAL HISTORY Never Assessed REASON FOR VISIT Medication question PLAN OF CARE VITAL SIGNS MEDICATIONS Unknown [...] finger release Hospitalization History DKA at in [place] September 2016
--- NOTE | 2018-06-01 16:37 | Diagnostic Imaging Report ---
Procedure: Chest PA/LAT (2 view). Indication: Nausea and rash. Shortness of breath. Comparison: 10/21/2016. Findings: No focal pneumonic consolidation, pleural effusion or pneumothorax. Stable right apical subpleural scarring which may be due to radiation fibrosis. Normal heart size and pulmonary vasculature. Right axillary lymph node dissection and right mastectomy are noted. Impression: No acute cardiopulmonary process. Dictated by: Dictated on workstation # [id number]
--- OUTSIDE RECORDS SUMMARY | 2018-06-01 16:41 | XMS REPORT | Continuity of Care Document ---
Author Author [facility] Address Unknown Phone Unavailable Allergies Active Description Code Type Severity Reaction Onset Reported/Identified Relationship to Patient Clinical Status Yes Penicillins [id number] Drug Allergy Unknown N/A 02/13/2008 Yes Penicillins Drug Allergy 08/26/2008 Yes Penicillins Drug Allergy N/A N/A 08/26/2008 Medications There is no data. Problems Date Dx Coded Attending Type Code Diagnosis Diagnosed By 01/18/2008 110.5 TINEA CORPORIS 01/18/2008 250.03 DIABETES MELLITUS TYPE I - UNCONTROLLED 01/18/2008 599.0 URINARY TRACT INFECTION 01/18/2008 EUGENIO BELTRAN APRN 110.5 TINEA CORPORIS 01/18/2008 EUGENIO BELTRAN APRN 250.03 DIABETES MELLITUS TYPE I - UNCONTROLLED 01/18/2008 EUGENIO BELTRAN APRN 599.0 URINARY TRACT INFECTION 01/18/2008 110.5 TINEA CORPORIS 01/18/2008 250.03 DIABETES MELLITUS TYPE I - UNCONTROLLED 01/18/2008 599.0 URINARY TRACT INFECTION 01/18/2008 EUGENIO BELTRAN APRN 110.5 TINEA CORPORIS 01/18/2008 EUGENIO BELTRAN APRN 250.03 DIABETES MELLITUS TYPE I - UNCONTROLLED 01/18/2008 EUGENIO BELTRAN APRN 599.0 URINARY TRACT INFECTION 01/18/2008 110.5 TINEA CORPORIS 01/18/2008 250.03 DIABETES MELLITUS TYPE I - UNCONTROLLED 01/18/2008 599.0 URINARY TRACT INFECTION 01/18/2008 110.5 TINEA CORPORIS 01/18/2008 250.03 DIABETES MELLITUS TYPE I - UNCONTROLLED 01/18/2008 599.0 URINARY TRACT INFECTION 01/18/2008 110.5 TINEA CORPORIS 01/18/2008 250.03 DIABETES MELLITUS TYPE I - UNCONTROLLED 01/18/2008 599.0 URINARY TRACT INFECTION 01/18/2008 110.5 TINEA CORPORIS 01/18/2008 250.03 DIABETES MELLITUS TYPE I - UNCONTROLLED 01/18/2008 599.0 URINARY TRACT INFECTION 01/18/2008 110.5 TINEA CORPORIS 01/18/2008 250.03 DIABETES MELLITUS TYPE I - UNCONTROLLED 01/18/2008 599.0 URINARY TRACT INFECTION 01/18/2008 DEVIN DUARTE EUGENIO S 110.5 TINEA CORPORIS 01/18/2008 DEVIN DUARTE EUGENIO S 250.03 DIABETES MELLITUS TYPE I - UNCONTROLLED 01/18/2008 DEVIN DUARTE EUGENIO S 599.0 URINARY TRACT INFECTION 01/18/2008 DAWSON DO JACOB K 110.5 TINEA CORPORIS 01/18/2008 DAWSON DO JACOB K 250.03 DIABETES MELLITUS TYPE I - UNCONTROLLED 01/18/2008 DAWSON DO JACOB K 599.0 URINARY TRACT INFECTION 01/18/2008 DEVIN DUARTE EUGENIO S 110.5 TINEA CORPORIS 01/18/2008 THOMAS BELTRAN APRNNDA S 250.03 DIABETES MELLITUS TYPE I - UNCONTROLLED 01/18/2008 DEVIN DUARTE EUGENIO S 599.0 URINARY TRACT INFECTION 01/18/2008 DAWSON DO JACOB K 110.5 TINEA CORPORIS 01/18/2008 DAWSON DO JACOB K 250.03 DIABETES MELLITUS TYPE I - UNCONTROLLED 01/18/2008 DAWSON DO, JACOB K 599.0 URINARY TRACT INFECTION 01/18/2008 DEVIN DUARTE EUGENIO S 110.5 TINEA CORPORIS 01/18/2008 DEVIN DUARTE EUGENIO S 250.03 DIABETES MELLITUS TYPE I - UNCONTROLLED 01/18/2008 DEVIN DUARTE EUGENIO S 599.0 URINARY TRACT INFECTION 01/18/2008 DEVIN DUARTE EUGENIO S 110.5 TINEA CORPORIS 01/18/2008 DEVIN DUARTE EUGENIO S 250.03 DIABETES MELLITUS TYPE I - UNCONTROLLED 01/18/2008 DEVIN DUARTE, EUGENIO S 599.0 URINARY TRACT INFECTION 01/18/2008 DEVIN DUARTE EUGENIO S 110.5 TINEA CORPORIS 01/18/2008 DEVIN DUARTE EUGENIO S 250.03 DIABETES MELLITUS TYPE I - UNCONTROLLED 01/18/2008 DEVIN DUARTE EUGENIO S 599.0 URINARY TRACT INFECTION 01/18/2008 THOMAS BELTRAN APRNNDA S 110.5 TINEA CORPORIS 01/18/2008 DEVIN DUARTE EUGENIO S 250.03 DIABETES MELLITUS TYPE I - UNCONTROLLED 01/18/2008 DEVIN DUARTE EUGENIO S 599.0 URINARY TRACT INFECTION 01/18/2008 DAWSON DO, JACOB K 110.5 TINEA CORPORIS 01/18/2008 DAWSON DO, JACOB K 250.03 DIABETES MELLITUS TYPE I - UNCONTROLLED 01/18/2008 DAWSON DO, JACOB K 599.0 URINARY TRACT INFECTION 01/18/2008 FRANCISCO DELCID APRN 110.5 TINEA CORPORIS 01/18/2008 FRANCISCO DELCID APRN 250.03 DIABETES MELLITUS TYPE I - UNCONTROLLED 01/18/2008 FRANCISCO DELCID APRN 599.0 URINARY TRACT INFECTION 01/18/2008 FRANCISCO DELCID APRN 110.5 TINEA CORPORIS 01/18/2008 FRANCISCO DELCID APRN 250.03 DIABETES MELLITUS TYPE I - UNCONTROLLED 01/18/2008 FRANCISCO DELCID APRN 599.0 URINARY TRACT INFECTION 01/18/2008 FRANCISCO DELCID APRN 110.5 TINEA CORPORIS 01/18/2008 FRANCISCO DELCID APRN 250.03 DIABETES MELLITUS TYPE I - UNCONTROLLED 01/18/2008 FRANCISCO DELCID APRN 599.0 URINARY TRACT INFECTION 01/18/2008 PATRICE BELTRAN APRNA S 110.5 TINEA CORPORIS 01/18/2008 THOMAS BELTRAN APRNNDA S 250.03 DIABETES MELLITUS TYPE I - UNCONTROLLED 01/18/2008 THOMAS BELTRAN APRNNDA S 599.0 URINARY TRACT INFECTION 01/18/2008 MARCOS WESLEY APRN A 110.5 TINEA CORPORIS 01/18/2008 DICK WESLEY APRNIDI A 250.03 DIABETES MELLITUS TYPE I - UNCONTROLLED 01/18/2008 DICK WESLEY APRNIDI A 599.0 URINARY TRACT INFECTION 01/18/2008 THOMAS BELTRAN APRNNDA S 110.5 TINEA CORPORIS 01/18/2008 THOMAS BELTRAN APRNNDA S 250.03 DIABETES MELLITUS TYPE I - UNCONTROLLED 01/18/2008 THOMAS BELTRAN APRNNDA S 599.0 URINARY TRACT INFECTION 04/11/2008 V04.81 NEED FOR PROPHYLACTIC VACCINATION AND INOCULATION AGAINST INFLUENZA 04/11/2008 DEVIN SANTIAGONTHOMASEUGENIO S V04.81 NEED FOR PROPHYLACTIC VACCINATION AND INOCULATION AGAINST INFLUENZA 04/11/2008 V04.81 NEED FOR PROPHYLACTIC VACCINATION AND INOCULATION AGAINST INFLUENZA 04/11/2008 DEVINOCRKY SANTIAGONTHOMASEUGENIO S V04.81 NEED FOR PROPHYLACTIC VACCINATION AND INOCULATION AGAINST INFLUENZA 04/11/2008 V04.81 NEED FOR PROPHYLACTIC VACCINATION AND INOCULATION AGAINST INFLUENZA 04/11/2008 V04.81 NEED FOR PROPHYLACTIC VACCINATION AND INOCULATION AGAINST INFLUENZA 04/11/2008 V04.81 NEED FOR PROPHYLACTIC VACCINATION AND INOCULATION AGAINST INFLUENZA 04/11/2008 V04.81 NEED FOR PROPHYLACTIC VACCINATION AND INOCULATION AGAINST INFLUENZA 04/11/2008 V04.81 NEED FOR PROPHYLACTIC VACCINATION AND INOCULATION AGAINST INFLUENZA 04/11/2008 DEVINCORKY SANTIAGONTHOMASEUGENIO S V04.81 NEED FOR PROPHYLACTIC VACCINATION AND INOCULATION AGAINST INFLUENZA 04/11/2008 JACOB DAWSON DO K V04.81 NEED FOR PROPHYLACTIC VACCINATION AND INOCULATION AGAINST INFLUENZA 04/11/2008 DEVINCORKY SANTIAGONTHOMASEUGENIO S V04.81 NEED FOR PROPHYLACTIC VACCINATION AND INOCULATION AGAINST INFLUENZA 04/11/2008 JACOB DAWSON DO K V04.81 NEED FOR PROPHYLACTIC VACCINATION AND INOCULATION AGAINST INFLUENZA 04/11/2008 DEVINCORKY SANTIAGOPetr EUGENIO S V04.81 NEED FOR PROPHYLACTIC VACCINATION AND INOCULATION AGAINST INFLUENZA 04/11/2008 DEVINCORKY SANTIAGOPetr EUGENIO S V04.81 NEED FOR PROPHYLACTIC VACCINATION AND INOCULATION AGAINST INFLUENZA 04/11/2008 DEVINCORKY SANTIAGOPetr EUGENIO S V04.81 NEED FOR PROPHYLACTIC VACCINATION AND INOCULATION AGAINST INFLUENZA 04/11/2008 DEVINCORKY SANTIAGONTHOMASEUGENIO S V04.81 NEED FOR PROPHYLACTIC VACCINATION AND INOCULATION AGAINST INFLUENZA 04/11/2008 LONA DAWSON DOA K V04.81 NEED FOR PROPHYLACTIC VACCINATION AND INOCULATION AGAINST INFLUENZA 04/11/2008 FRANCISCO DELCID APRN V04.81 NEED FOR PROPHYLACTIC VACCINATION AND INOCULATION AGAINST INFLUENZA 04/11/2008 FRANCISCO DELCID APRN V04.81 NEED FOR PROPHYLACTIC VACCINATION AND INOCULATION AGAINST INFLUENZA 04/11/2008 FRANCISCO DELCID APRN V04.81 NEED FOR PROPHYLACTIC VACCINATION AND INOCULATION AGAINST INFLUENZA 04/11/2008 PATRICE BELTRAN APRNA S V04.81 NEED FOR PROPHYLACTIC VACCINATION AND INOCULATION AGAINST INFLUENZA 04/11/2008 MARCOS WESLEY APRN V04.81 NEED FOR PROPHYLACTIC VACCINATION AND INOCULATION AGAINST INFLUENZA 04/11/2008 THOMAS BELTRAN APRNNDA S V04.81 NEED FOR PROPHYLACTIC VACCINATION AND INOCULATION AGAINST INFLUENZA 08/26/2008 726.0 ADHESIVE CAPSULITIS OF SHOULDER 08/26/2008 THOMAS BELTRAN APRNNDA S 726.0 ADHESIVE CAPSULITIS OF SHOULDER 08/26/2008 726.0 ADHESIVE CAPSULITIS OF SHOULDER 08/26/2008 THOMAS BELTRAN APRNNDA S 726.0 ADHESIVE CAPSULITIS OF SHOULDER 08/26/2008 726.0 ADHESIVE CAPSULITIS OF SHOULDER 08/26/2008 726.0 ADHESIVE CAPSULITIS OF SHOULDER 08/26/2008 726.0 ADHESIVE CAPSULITIS OF SHOULDER 08/26/2008 726.0 ADHESIVE CAPSULITIS OF SHOULDER 08/26/2008 726.0 ADHESIVE CAPSULITIS OF SHOULDER 08/26/2008 DEVIN DUARET EUGENIO S 726.0 ADHESIVE CAPSULITIS OF SHOULDER 08/26/2008 DAWSON DO, JACOB K 726.0 ADHESIVE CAPSULITIS OF SHOULDER 08/26/2008 DEVIN DUARTE EUGENIO S 726.0 ADHESIVE CAPSULITIS OF SHOULDER 08/26/2008 DAWSON DO, JACOB K 726.0 ADHESIVE CAPSULITIS OF SHOULDER 08/26/2008 DEVIN DUARTE EUGENIO S 726.0 ADHESIVE CAPSULITIS OF SHOULDER 08/26/2008 DEVIN DUARTE EUGENIO S 726.0 ADHESIVE CAPSULITIS OF SHOULDER 08/26/2008 DEVIN DUARTE EUGENIO S 726.0 ADHESIVE CAPSULITIS OF SHOULDER 08/26/2008 DEVIN DUARTE EUGENIO S 726.0 ADHESIVE CAPSULITIS OF SHOULDER 08/26/2008 DAWSON DO, JACOB K 726.0 ADHESIVE CAPSULITIS OF SHOULDER 08/26/2008 FRANCISCO DELCID APRN 726.0 ADHESIVE CAPSULITIS OF SHOULDER 08/26/2008 FRANCISCO DELCID APRN 726.0 ADHESIVE CAPSULITIS OF SHOULDER 08/26/2008 FRANCISCO DELCID APRN 726.0 ADHESIVE CAPSULITIS OF SHOULDER 08/26/2008 EUGENIO BELTRAN APRN S 726.0 ADHESIVE CAPSULITIS OF SHOULDER 08/26/2008 MARCOS WESLEY APRN 726.0 ADHESIVE CAPSULITIS OF SHOULDER 08/26/2008 EUGENIO BELTRAN APRN S 726.0 ADHESIVE CAPSULITIS OF SHOULDER 11/22/2008 719.41 PAIN IN JOINT INVOLVING SHOULDER REGION 11/22/2008 EUGENIO BELTRAN APRN S 719.41 PAIN IN JOINT INVOLVING SHOULDER REGION 11/22/2008 719.41 PAIN IN JOINT INVOLVING SHOULDER REGION 11/22/2008 EUGENIO BELTRAN APRN S 719.41 PAIN IN JOINT INVOLVING SHOULDER REGION 11/22/2008 719.41 PAIN IN JOINT INVOLVING SHOULDER REGION 11/22/2008 719.41 PAIN IN JOINT INVOLVING SHOULDER REGION 11/22/2008 719.41 PAIN IN JOINT INVOLVING SHOULDER REGION 11/22/2008 719.41 PAIN IN JOINT INVOLVING SHOULDER REGION 11/22/2008 719.41 PAIN IN JOINT INVOLVING SHOULDER REGION 11/22/2008 EUGENIO BELTRAN APRN S 719.41 PAIN IN JOINT INVOLVING SHOULDER REGION 11/22/2008 JACOB DAWSON DO K 719.41 PAIN IN JOINT INVOLVING SHOULDER REGION 11/22/2008 EUGENIO BELTRAN APRN S 719.41 PAIN IN JOINT INVOLVING SHOULDER REGION 11/22/2008 JACOB DAWSON DO K 719.41 PAIN IN JOINT INVOLVING SHOULDER REGION 11/22/2008 EUGENIO BELTRAN APRN S 719.41 PAIN IN JOINT INVOLVING SHOULDER REGION 11/22/2008 EUGENIO BELTRAN APRN S 719.41 PAIN IN JOINT INVOLVING SHOULDER REGION 11/22/2008 EUGENIO BELTRAN APRN S 719.41 PAIN IN JOINT INVOLVING SHOULDER REGION 11/22/2008 EUGENIO BELTRAN APRN S 719.41 PAIN IN JOINT INVOLVING SHOULDER REGION 11/22/2008 LONA DAWSON DOA K 719.41 PAIN IN JOINT INVOLVING SHOULDER REGION 11/22/2008 FRANCISCO DELCID APRN 719.41 PAIN IN JOINT INVOLVING SHOULDER REGION 11/22/2008 FRANCISCO DELCID APRN 719.41 PAIN IN JOINT INVOLVING SHOULDER REGION 11/22/2008 FRANCISCO DELCID APRN 719.41 PAIN IN JOINT INVOLVING SHOULDER REGION 11/22/2008 EUGENIO BELTRAN APRN S 719.41 PAIN IN JOINT INVOLVING SHOULDER REGION 11/22/2008 MARCOS WESLEY APRN 719.41 PAIN IN JOINT INVOLVING SHOULDER REGION 11/22/2008 PATRICE BELTRAN APRNA S 719.41 PAIN IN JOINT INVOLVING SHOULDER REGION 03/06/2009 244.9 UNSPECIFIED ACQUIRED HYPOTHYROIDISM 03/06/2009 THOMAS BELTRAN APRNNDA S 244.9 UNSPECIFIED ACQUIRED HYPOTHYROIDISM 03/06/2009 244.9 UNSPECIFIED ACQUIRED HYPOTHYROIDISM 03/06/2009 THOMAS BELTRAN APRNNDA S 244.9 UNSPECIFIED ACQUIRED HYPOTHYROIDISM 03/06/2009 244.9 UNSPECIFIED ACQUIRED HYPOTHYROIDISM 03/06/2009 244.9 UNSPECIFIED ACQUIRED HYPOTHYROIDISM 03/06/2009 244.9 UNSPECIFIED ACQUIRED HYPOTHYROIDISM 03/06/2009 244.9 UNSPECIFIED ACQUIRED HYPOTHYROIDISM 03/06/2009 244.9 UNSPECIFIED ACQUIRED HYPOTHYROIDISM 03/06/2009 THOMAS BELTRAN APRNNDA S 244.9 UNSPECIFIED ACQUIRED HYPOTHYROIDISM 03/06/2009 DAWSON DO, JACOB K 244.9 UNSPECIFIED ACQUIRED HYPOTHYROIDISM 03/06/2009 THOMAS BELTRAN APRNNDA S 244.9 UNSPECIFIED ACQUIRED HYPOTHYROIDISM 03/06/2009 DAWSON DO, JACOB K 244.9 UNSPECIFIED ACQUIRED HYPOTHYROIDISM 03/06/2009 THOMAS BELTRAN APRNNDA S 244.9 UNSPECIFIED ACQUIRED HYPOTHYROIDISM 03/06/2009 THOMAS BELTRAN APRNNDA S 244.9 UNSPECIFIED ACQUIRED HYPOTHYROIDISM 03/06/2009 THOMAS BELTRAN APRNNDA S 244.9 UNSPECIFIED ACQUIRED HYPOTHYROIDISM 03/06/2009 THOMAS BELTRAN APRNNDA S 244.9 UNSPECIFIED ACQUIRED HYPOTHYROIDISM 03/06/2009 DAWSON DO, JACOB K 244.9 UNSPECIFIED ACQUIRED HYPOTHYROIDISM 03/06/2009 FRANCISCO DELCID APRN D 244.9 UNSPECIFIED ACQUIRED HYPOTHYROIDISM 03/06/2009 FRANCISCO DELCID APRN 244.9 UNSPECIFIED ACQUIRED HYPOTHYROIDISM 03/06/2009 FRANCISCO DELCID APRN 244.9 UNSPECIFIED ACQUIRED HYPOTHYROIDISM 03/06/2009 PATRICE BELTRAN APRNA S 244.9 UNSPECIFIED ACQUIRED HYPOTHYROIDISM 03/06/2009 LUPILLO MALWARE ANALYST, MARCOS A 244.9 UNSPECIFIED ACQUIRED HYPOTHYROIDISM 03/06/2009 DEVIN MALWARE ANALYST, EUGENIO S 244.9 UNSPECIFIED ACQUIRED HYPOTHYROIDISM 07/15/2009 250.6 NEUROPATHY DIABETIC 07/15/2009 V06.4 Need For Vaccination Mmr 07/15/2009 DEVIN MALWARE ANALYST, EUGENIO S 250.6 NEUROPATHY DIABETIC 07/15/2009 DEVIN MALWARE ANALYST, EUGENIO S V06.4 Need For Vaccination Mmr 07/15/2009 250.6 NEUROPATHY DIABETIC 07/15/2009 V06.4 Need For Vaccination Mmr 07/15/2009 DEVIN MALWARE ANALYST, EUGENIO S 250.6 NEUROPATHY DIABETIC 07/15/2009 DEVIN MALWARE ANALYST, EUGENIO S V06.4 Need For Vaccination Mmr 07/15/2009 250.6 NEUROPATHY DIABETIC 07/15/2009 V06.4 Need For Vaccination Mmr 07/15/2009 250.6 NEUROPATHY DIABETIC 07/15/2009 V06.4 Need For Vaccination Mmr 07/15/2009 250.6 NEUROPATHY DIABETIC 07/15/2009 V06.4 Need For Vaccination Mmr 07/15/2009 250.6 NEUROPATHY DIABETIC 07/15/2009 V06.4 Need For Vaccination Mmr 07/15/2009 250.6 NEUROPATHY DIABETIC 07/15/2009 V06.4 Need For Vaccination Mmr 07/15/2009 DEVIN SANTIAGON, EUGENIO S 250.6 NEUROPATHY DIABETIC 07/15/2009 DEVIN SANTIAGON, EUGENIO S V06.4 Need For Vaccination Mmr 07/15/2009 DAWSON DO, JACOB K 250.6 NEUROPATHY DIABETIC 07/15/2009 DAWSON DO, JACOB K V06.4 Need For Vaccination Mmr 07/15/2009 DEVIN MALWARE ANALYST, EUGENIO S 250.6 NEUROPATHY DIABETIC 07/15/2009 DEVIN MALWARE ANALYST, EUGENIO S V06.4 Need For Vaccination Mmr 07/15/2009 DAWSON DO, JACOB K 250.6 NEUROPATHY DIABETIC 07/15/2009 DAWSON DO, JACOB K V06.4 Need For Vaccination Mmr 07/15/2009 DEVIN MALWARE ANALYST, EUGENIO S 250.6 NEUROPATHY DIABETIC 07/15/2009 DEVIN MALWARE ANALYST, EUGENIO S V06.4 Need For Vaccination Mmr 07/15/2009 DEVIN SANTIAGON, EUGENIO S 250.6 NEUROPATHY DIABETIC 07/15/2009 DEVIN MALWARE ANALYST, EUGENIO S V06.4 Need For Vaccination Mmr 07/15/2009 DEVIN MALWARE ANALYST, EUGENIO S 250.6 NEUROPATHY DIABETIC 07/15/2009 DEVIN MALWARE ANALYST, EUGENIO S V06.4 Need For Vaccination Mmr 07/15/2009 DEVIN MALWARE ANALYST, EUGENIO S 250.6 NEUROPATHY DIABETIC 07/15/2009 DEVIN MALWARE ANALYST, EUGENIO S V06.4 Need For Vaccination Mmr 07/15/2009 DAWSON DO, JACOB K 250.6 NEUROPATHY DIABETIC 07/15/2009 DAWSON DO, JACOB K V06.4 Need For Vaccination Mmr 07/15/2009 DELCID MALWARE ANALYST, FRANCISCO D 250.6 NEUROPATHY DIABETIC 07/15/2009 DELCID MALWARE ANALYSTTRON D V06.4 Need For Vaccination Mmr 07/15/2009 DELCID MALWARE ANALYST, FRANCISCO D 250.6 NEUROPATHY DIABETIC 07/15/2009 DELCID MALWARE ANALYSTTRON D V06.4 Need For Vaccination Mmr 07/15/2009 DELCID MALWARE ANALYSTTRON D 250.6 NEUROPATHY DIABETIC 07/15/2009 DELCID MALWARE ANALYSTTRON D V06.4 Need For Vaccination Mmr 07/15/2009 DEVIN MALWARE ANALYST, EUGENIO S 250.6 NEUROPATHY DIABETIC 07/15/2009 DEVIN MALWARE ANALYST, EUGENIO S V06.4 Need For Vaccination Mmr 07/15/2009 LUPILLO MALWARE ANALYST, MARCOS A 250.6 NEUROPATHY DIABETIC 07/15/2009 LUPILLO MALWARE ANALYST, MARCOS A V06.4 Need For Vaccination Mmr 07/15/2009 DEVIN MALWARE ANALYST, EUGENIO S 250.6 NEUROPATHY DIABETIC 07/15/2009 DEVIN MALWARE ANALYST, EUGENIO S V06.4 Need For Vaccination Mmr 10/10/2009 627.9 MENOPAUSAL AND POSTMENOPAUSAL DISORDER UNSPECIFIED 10/10/2009 V72.31 SUBSTATION SUPERINTENDENT EXAM, ROUTINE 10/10/2009 THOMAS BELTRAN APRNNDA S 627.9 MENOPAUSAL AND POSTMENOPAUSAL DISORDER UNSPECIFIED 10/10/2009 DEVIN MALWARE ANALYST, EUGENIO S V72.31 SUBSTATION SUPERINTENDENT EXAM, ROUTINE 10/10/2009 627.9 MENOPAUSAL AND POSTMENOPAUSAL DISORDER UNSPECIFIED 10/10/2009 V72.31 SUBSTATION SUPERINTENDENT EXAM, ROUTINE 10/10/2009 DEVIN MALWARE ANALYST, EUGENIO S 627.9 MENOPAUSAL AND POSTMENOPAUSAL DISORDER UNSPECIFIED 10/10/2009 DEVIN MALWARE ANALYST, EUGENIO S V72.31 SUBSTATION SUPERINTENDENT EXAM, ROUTINE 10/10/2009 627.9 MENOPAUSAL AND POSTMENOPAUSAL DISORDER UNSPECIFIED 10/10/2009 V72.31 SUBSTATION SUPERINTENDENT EXAM, ROUTINE 10/10/2009 627.9 MENOPAUSAL AND POSTMENOPAUSAL DISORDER UNSPECIFIED 10/10/2009 V72.31 SUBSTATION SUPERINTENDENT EXAM, ROUTINE 10/10/2009 627.9 MENOPAUSAL AND POSTMENOPAUSAL DISORDER UNSPECIFIED 10/10/2009 V72.31 SUBSTATION SUPERINTENDENT EXAM, ROUTINE 10/10/2009 627.9 MENOPAUSAL AND POSTMENOPAUSAL DISORDER UNSPECIFIED 10/10/2009 V72.31 SUBSTATION SUPERINTENDENT EXAM, ROUTINE 10/10/2009 627.9 MENOPAUSAL AND POSTMENOPAUSAL DISORDER UNSPECIFIED 10/10/2009 V72.31 SUBSTATION SUPERINTENDENT EXAM, ROUTINE 10/10/2009 DEVIN MALWARE ANALYST, EUGENIO S 627.9 MENOPAUSAL AND POSTMENOPAUSAL DISORDER UNSPECIFIED 10/10/2009 DEVIN MALWARE ANALYST, EUGENIO S V72.31 SUBSTATION SUPERINTENDENT EXAM, ROUTINE 10/10/2009 DAWSON DO, JACOB K 627.9 MENOPAUSAL AND POSTMENOPAUSAL DISORDER UNSPECIFIED 10/10/2009 DAWSON DO, JACOB K V72.31 SUBSTATION SUPERINTENDENT EXAM, ROUTINE 10/10/2009 DEVIN MALWARE ANALYST, EUGENIO S 627.9 MENOPAUSAL AND POSTMENOPAUSAL DISORDER UNSPECIFIED 10/10/2009 DEVIN MALWARE ANALYST, EUGENIO S V72.31 SUBSTATION SUPERINTENDENT EXAM, ROUTINE 10/10/2009 DAWSON DO, JACOB K 627.9 MENOPAUSAL AND POSTMENOPAUSAL DISORDER UNSPECIFIED 10/10/2009 DAWSON DO JACOB K V72.31 SUBSTATION SUPERINTENDENT EXAM, ROUTINE 10/10/2009 DEVIN MALWARE ANALYST, EUGENIO S 627.9 MENOPAUSAL AND POSTMENOPAUSAL DISORDER UNSPECIFIED 10/10/2009 DEVIN MALWARE ANALYST, EUGENIO S V72.31 SUBSTATION SUPERINTENDENT EXAM, ROUTINE 10/10/2009 DEVIN MALWARE ANALYST, EUGENIO S 627.9 MENOPAUSAL AND POSTMENOPAUSAL DISORDER UNSPECIFIED 10/10/2009 DEVIN MALWARE ANALYST, EUGENIO S V72.31 SUBSTATION SUPERINTENDENT EXAM, ROUTINE 10/10/2009 DEVIN MALWARE ANALYST, EUGENIO S 627.9 MENOPAUSAL AND POSTMENOPAUSAL DISORDER UNSPECIFIED 10/10/2009 DEVIN MALWARE ANALYST, EUGENIO S V72.31 SUBSTATION SUPERINTENDENT EXAM, ROUTINE 10/10/2009 DEVIN MALWARE ANALYST, EUGENIO S 627.9 MENOPAUSAL AND POSTMENOPAUSAL DISORDER UNSPECIFIED 10/10/2009 DEVIN MALWARE ANALYST, EUGENIO S V72.31 SUBSTATION SUPERINTENDENT EXAM, ROUTINE 10/10/2009 DAWSON DO, JACOB K 627.9 MENOPAUSAL AND POSTMENOPAUSAL DISORDER UNSPECIFIED 10/10/2009 DAWSON DO, JACOB K V72.31 SUBSTATION SUPERINTENDENT EXAM, ROUTINE 10/10/2009 DELCID MALWARE ANALYST, FRANCISCO D 627.9 MENOPAUSAL AND POSTMENOPAUSAL DISORDER UNSPECIFIED 10/10/2009 DELCID MALWARE ANALYST, FRANCISCO D V72.31 SUBSTATION SUPERINTENDENT EXAM, ROUTINE 10/10/2009 DELCID MALWARE ANALYST, FRANCISCO D 627.9 MENOPAUSAL AND POSTMENOPAUSAL DISORDER UNSPECIFIED 10/10/2009 DELCID MALWARE ANALYST, FRANCISCO D V72.31 SUBSTATION SUPERINTENDENT EXAM, ROUTINE 10/10/2009 DELCID MALWARE ANALYST, FRANCISCO D 627.9 MENOPAUSAL AND POSTMENOPAUSAL DISORDER UNSPECIFIED 10/10/2009 DELCID MALWARE ANALYST, FRANCISCO D V72.31 SUBSTATION SUPERINTENDENT EXAM, ROUTINE 10/10/2009 DEVIN DUARTE, EUGENIO S 627.9 MENOPAUSAL AND POSTMENOPAUSAL DISORDER UNSPECIFIED 10/10/2009 DEVIN MALWARE ANALYST, EUGENIO S V72.31 SUBSTATION SUPERINTENDENT EXAM, ROUTINE 10/10/2009 LUPILLO MALWARE ANALYST, MARCOS A 627.9 MENOPAUSAL AND POSTMENOPAUSAL DISORDER UNSPECIFIED 10/10/2009 LUPILLO MALWARE ANALYST, MARCOS A V72.31 SUBSTATION SUPERINTENDENT EXAM, ROUTINE 10/10/2009 DEVIN MALWARE ANALYST, EUGENIO S 627.9 MENOPAUSAL AND POSTMENOPAUSAL DISORDER UNSPECIFIED 10/10/2009 DEVIN MALWARE ANALYST, EUGENIO S V72.31 SUBSTATION SUPERINTENDENT EXAM, ROUTINE 01/28/2010 V03.82 Pcv7 Pcv13 Pcv23, Streptococcus Pneumoniae [pneumococcus] 01/28/2010 EUGENIO BELTRAN APRN S V03.82 Pcv7 Pcv13 Pcv23, Streptococcus Pneumoniae [pneumococcus] 01/28/2010 V03.82 Pcv7 Pcv13 Pcv23, Streptococcus Pneumoniae [pneumococcus] 01/28/2010 EUGENIO BELTRAN APRN V03.82 Pcv7 Pcv13 Pcv23, Streptococcus Pneumoniae [pneumococcus] 01/28/2010 V03.82 Pcv7 Pcv13 Pcv23, Streptococcus Pneumoniae [pneumococcus] 01/28/2010 V03.82 Pcv7 Pcv13 Pcv23, Streptococcus Pneumoniae [pneumococcus] 01/28/2010 V03.82 Pcv7 Pcv13 Pcv23, Streptococcus Pneumoniae [pneumococcus] 01/28/2010 V03.82 Pcv7 Pcv13 Pcv23, Streptococcus Pneumoniae [pneumococcus] 01/28/2010 V03.82 Pcv7 Pcv13 Pcv23, Streptococcus Pneumoniae [pneumococcus] 01/28/2010 EUGENIO BELTRAN APRN V03.82 Pcv7 Pcv13 Pcv23, Streptococcus Pneumoniae [pneumococcus] 01/28/2010 DAWSON DOJACOB K V03.82 Pcv7 Pcv13 Pcv23, Streptococcus Pneumoniae [pneumococcus] 01/28/2010 EUGENIO BELTRAN APRN V03.82 Pcv7 Pcv13 Pcv23, Streptococcus Pneumoniae [pneumococcus] 01/28/2010 DAWSON DOJACOB K V03.82 Pcv7 Pcv13 Pcv23, Streptococcus Pneumoniae [pneumococcus] 01/28/2010 EUGENIO BELTRAN APRN V03.82 Pcv7 Pcv13 Pcv23, Streptococcus Pneumoniae [pneumococcus] 01/28/2010 EUGENIO BELTRAN APRN S V03.82 Pcv7 Pcv13 Pcv23, Streptococcus Pneumoniae [pneumococcus] 01/28/2010 EUGENIO BELTRAN APRN V03.82 Pcv7 Pcv13 Pcv23, Streptococcus Pneumoniae [pneumococcus] 01/28/2010 EUGENIO BELTRAN APRN V03.82 Pcv7 Pcv13 Pcv23, Streptococcus Pneumoniae [pneumococcus] 01/28/2010 DAWSON DOJACOB K V03.82 Pcv7 Pcv13 Pcv23, Streptococcus Pneumoniae [pneumococcus] 01/28/2010 FRANCISCO DELCID APRN V03.82 Pcv7 Pcv13 Pcv23, Streptococcus Pneumoniae [pneumococcus] 01/28/2010 FRNACISCO DELCID APRN V03.82 Pcv7 Pcv13 Pcv23, Streptococcus Pneumoniae [pneumococcus] 01/28/2010 FRANCISCO DELCID APRN V03.82 Pcv7 Pcv13 Pcv23, Streptococcus Pneumoniae [pneumococcus] 01/28/2010 EUGENIO BELTRAN APRN S V03.82 Pcv7 Pcv13 Pcv23, Streptococcus Pneumoniae [pneumococcus] 01/28/2010 MARCOS WESLEY APRN V03.82 Pcv7 Pcv13 Pcv23, Streptococcus Pneumoniae [pneumococcus] 01/28/2010 DEVIN MALWARE ANALYST, EUGENIO S V03.82 Pcv7 Pcv13 Pcv23, Streptococcus Pneumoniae [pneumococcus] 02/04/2010 709.9 Skin Lesions 02/04/2010 DEVIN MALWARE ANALYST, EUGENIO S 709.9 Skin Lesions 02/04/2010 709.9 Skin Lesions 02/04/2010 DEVIN MALWARE ANALYST, EUGENIO S 709.9 Skin Lesions 02/04/2010 709.9 Skin Lesions 02/04/2010 709.9 Skin Lesions 02/04/2010 709.9 Skin Lesions 02/04/2010 709.9 Skin Lesions 02/04/2010 709.9 Skin Lesions 02/04/2010 DEVIN MALWARE ANALYST, EUGENIO S 709.9 Skin Lesions 02/04/2010 DAWSON DO JACOB K 709.9 Skin Lesions 02/04/2010 DEVIN MALWARE ANALYST, EUGENIO S 709.9 Skin Lesions 02/04/2010 DAWSON DO JACOB K 709.9 Skin Lesions 02/04/2010 DEVIN MALWARE ANALYST, EUGENIO S 709.9 Skin Lesions 02/04/2010 DEVIN MALWARE ANALYST, EUGENIO S 709.9 Skin Lesions 02/04/2010 DEVIN MALWARE ANALYST, EUGENIO S 709.9 Skin Lesions 02/04/2010 DEVIN MALWARE ANALYST, EUGENIO S 709.9 Skin Lesions 02/04/2010 DAWSON DO JACOB K 709.9 Skin Lesions 02/04/2010 DELCID TR DUARTEON D 709.9 Skin Lesions 02/04/2010 DELCID MALWARE ANALYSTTR HumphreysON D 709.9 Skin Lesions 02/04/2010 DELCID MALWARE ANALYSTTR HumphreysON D 709.9 Skin Lesions 02/04/2010 DEVIN MALWARE ANALYST, EUGENIO S 709.9 Skin Lesions 02/04/2010 MARCOS WESLEY APRN A 709.9 Skin Lesions 02/04/2010 DEVIN MALWARE ANALYST, EUGENIO S 709.9 Skin Lesions 02/23/2010 706.2 Sebaceous Cyst 02/23/2010 DEVIN DUARTE, EUGENIO S 706.2 Sebaceous Cyst 02/23/2010 706.2 Sebaceous Cyst 02/23/2010 DEVIN MALWARE ANALYST, EUGENIO S 706.2 Sebaceous Cyst 02/23/2010 706.2 Sebaceous Cyst 02/23/2010 706.2 Sebaceous Cyst 02/23/2010 706.2 Sebaceous Cyst 02/23/2010 706.2 Sebaceous Cyst 02/23/2010 706.2 Sebaceous Cyst 02/23/2010 DEVIN MALWARE ANALYST, EUGENIO S 706.2 Sebaceous Cyst 02/23/2010 DAWSON DO, JACOB K 706.2 Sebaceous Cyst 02/23/2010 DEVIN MALWARE ANALYST, EUGENIO S 706.2 Sebaceous Cyst 02/23/2010 DAWSON DO, JACOB K 706.2 Sebaceous Cyst 02/23/2010 DEVIN MALWARE ANALYST, EUGENIO S 706.2 Sebaceous Cyst 02/23/2010 DEVIN MALWARE ANALYST, EUGENIO S 706.2 Sebaceous Cyst 02/23/2010 DEVIN MALWARE ANALYST, EUGENIO S 706.2 Sebaceous Cyst 02/23/2010 DEVIN MALWARE ANALYST, EUGENIO S 706.2 Sebaceous Cyst 02/23/2010 DAWSON DO, JACOB K 706.2 Sebaceous Cyst 02/23/2010 TR DELCID APRNON D 706.2 Sebaceous Cyst 02/23/2010 DELCID MALWARE ANALYSTTR HumphreysON D 706.2 Sebaceous Cyst 02/23/2010 DELCID MALWARE ANALYST, FRANCISCO D 706.2 Sebaceous Cyst 02/23/2010 DEVIN SANTIAGON, EUGENIO S 706.2 Sebaceous Cyst 02/23/2010 LUPILLO DUARTE MARCOS A 706.2 Sebaceous Cyst 02/23/2010 DEVIN MALWARE ANALYST, EUGENIO S 706.2 Sebaceous Cyst 04/29/2010 250.61 NEUROPATHY WITH NEUROLOGICAL MANIFESTATIONS TYPE I [JUVENILE TYPE] NOT STATED UNCONTROLLED 04/29/2010 305.1 NONDEPENDENT TOBACCO USE DISORDER 04/29/2010 DEVIN DUARTE, EUGENIO S 250.61 NEUROPATHY WITH NEUROLOGICAL MANIFESTATIONS TYPE I [JUVENILE TYPE] NOT STATED UNCONTROLLED 04/29/2010 THOMAS BELTRAN APRNNDA S 305.1 NONDEPENDENT TOBACCO USE DISORDER 04/29/2010 250.61 NEUROPATHY WITH NEUROLOGICAL MANIFESTATIONS TYPE I [JUVENILE TYPE] NOT STATED UNCONTROLLED 04/29/2010 305.1 NONDEPENDENT TOBACCO USE DISORDER 04/29/2010 EUGENIO BELTRAN APRN S 250.61 NEUROPATHY WITH NEUROLOGICAL MANIFESTATIONS TYPE I [JUVENILE TYPE] NOT STATED UNCONTROLLED 04/29/2010 EUGENIO BELTRAN APRN S 305.1 NONDEPENDENT TOBACCO USE DISORDER 04/29/2010 250.61 NEUROPATHY WITH NEUROLOGICAL MANIFESTATIONS TYPE I [JUVENILE TYPE] NOT STATED UNCONTROLLED 04/29/2010 305.1 NONDEPENDENT TOBACCO USE DISORDER 04/29/2010 250.61 NEUROPATHY WITH NEUROLOGICAL MANIFESTATIONS TYPE I [JUVENILE TYPE] NOT STATED UNCONTROLLED 04/29/2010 305.1 NONDEPENDENT TOBACCO USE DISORDER 04/29/2010 250.61 NEUROPATHY WITH NEUROLOGICAL MANIFESTATIONS TYPE I [JUVENILE TYPE] NOT STATED UNCONTROLLED 04/29/2010 305.1 NONDEPENDENT TOBACCO USE DISORDER 04/29/2010 250.61 NEUROPATHY WITH NEUROLOGICAL MANIFESTATIONS TYPE I [JUVENILE TYPE] NOT STATED UNCONTROLLED 04/29/2010 305.1 NONDEPENDENT TOBACCO USE DISORDER 04/29/2010 250.61 NEUROPATHY WITH NEUROLOGICAL MANIFESTATIONS TYPE I [JUVENILE TYPE] NOT STATED UNCONTROLLED 04/29/2010 305.1 NONDEPENDENT TOBACCO USE DISORDER 04/29/2010 EUGENIO BELTRAN APRN S 250.61 NEUROPATHY WITH NEUROLOGICAL MANIFESTATIONS TYPE I [JUVENILE TYPE] NOT STATED UNCONTROLLED 04/29/2010 EUGENIO BELTRAN APRN S 305.1 NONDEPENDENT TOBACCO USE DISORDER 04/29/2010 EUNICE DO JACOB K 250.61 NEUROPATHY WITH NEUROLOGICAL MANIFESTATIONS TYPE I [JUVENILE TYPE] NOT STATED UNCONTROLLED 04/29/2010 DAWSON DO JACOB K 305.1 NONDEPENDENT TOBACCO USE DISORDER 04/29/2010 EUGENIO BELTRAN APRN S 250.61 NEUROPATHY WITH NEUROLOGICAL MANIFESTATIONS TYPE I [JUVENILE TYPE] NOT STATED UNCONTROLLED 04/29/2010 PATRICE BELTRAN APRNA S 305.1 NONDEPENDENT TOBACCO USE DISORDER 04/29/2010 DAWSON DO JACOB K 250.61 NEUROPATHY WITH NEUROLOGICAL MANIFESTATIONS TYPE I [JUVENILE TYPE] NOT STATED UNCONTROLLED 04/29/2010 DAWSON DO JACOB K 305.1 NONDEPENDENT TOBACCO USE DISORDER 04/29/2010 PATRICE BELTRAN APRNA S 250.61 NEUROPATHY WITH NEUROLOGICAL MANIFESTATIONS TYPE I [JUVENILE TYPE] NOT STATED UNCONTROLLED 04/29/2010 DEVIN DUARTE, EUGENIO S 305.1 NONDEPENDENT TOBACCO USE DISORDER 04/29/2010 PATRICE BELTRAN APRNA S 250.61 NEUROPATHY WITH NEUROLOGICAL MANIFESTATIONS TYPE I [JUVENILE TYPE] NOT STATED UNCONTROLLED 04/29/2010 DEVIN DUARTE, EUGENIO S 305.1 NONDEPENDENT TOBACCO USE DISORDER 04/29/2010 DEVIN DUARTE EUGENIO S 250.61 NEUROPATHY WITH NEUROLOGICAL MANIFESTATIONS TYPE I [JUVENILE TYPE] NOT STATED UNCONTROLLED 04/29/2010 DEVIN DUARTE EUGENIO S 305.1 NONDEPENDENT TOBACCO USE DISORDER 04/29/2010 THOMAS BELTRAN APRNNDA S 250.61 NEUROPATHY WITH NEUROLOGICAL MANIFESTATIONS TYPE I [JUVENILE TYPE] NOT STATED UNCONTROLLED 04/29/2010 DEVIN DUARTE EUGENIO S 305.1 NONDEPENDENT TOBACCO USE DISORDER 04/29/2010 LONA DAWSON DOA K 250.61 NEUROPATHY WITH NEUROLOGICAL MANIFESTATIONS TYPE I [JUVENILE TYPE] NOT STATED UNCONTROLLED 04/29/2010 JACOB DAWSON DO K 305.1 NONDEPENDENT TOBACCO USE DISORDER 04/29/2010 FRANCISCO DELCID APRN 250.61 NEUROPATHY WITH NEUROLOGICAL MANIFESTATIONS TYPE I [JUVENILE TYPE] NOT STATED UNCONTROLLED 04/29/2010 FRANCISCO DELCID APRN 305.1 NONDEPENDENT TOBACCO USE DISORDER 04/29/2010 FRANCISCO DELCID APRN 250.61 NEUROPATHY WITH NEUROLOGICAL MANIFESTATIONS TYPE I [JUVENILE TYPE] NOT STATED UNCONTROLLED 04/29/2010 FRANCISCO DELCID APRN 305.1 NONDEPENDENT TOBACCO USE DISORDER 04/29/2010 FRANCISCO DELCID APRN 250.61 NEUROPATHY WITH NEUROLOGICAL MANIFESTATIONS TYPE I [JUVENILE TYPE] NOT STATED UNCONTROLLED 04/29/2010 FRANCISCO DELCID APRN 305.1 NONDEPENDENT TOBACCO USE DISORDER 04/29/2010 PATRICE BELTRAN APRNA S 250.61 NEUROPATHY WITH NEUROLOGICAL MANIFESTATIONS TYPE I [JUVENILE TYPE] NOT STATED UNCONTROLLED 04/29/2010 THOMAS BELTRAN APRNNDA S 305.1 NONDEPENDENT TOBACCO USE DISORDER 04/29/2010 MARCOS WESLEY APRN A 250.61 NEUROPATHY WITH NEUROLOGICAL MANIFESTATIONS TYPE I [JUVENILE TYPE] NOT STATED UNCONTROLLED 04/29/2010 LUPILLO DUARTE MARCOS A 305.1 NONDEPENDENT TOBACCO USE DISORDER 04/29/2010 EUGENIO BELTRAN APRN 250.61 NEUROPATHY WITH NEUROLOGICAL MANIFESTATIONS TYPE I [JUVENILE TYPE] NOT STATED UNCONTROLLED 04/29/2010 EUGENIO BELTRAN APRN 305.1 NONDEPENDENT TOBACCO USE DISORDER 08/25/2010 Ot 244.9 HYPOTHYROIDISM NOS 08/25/2010 Ot 250.13 DIAB W KETOACIDOSIS, TYPE I [JUVENILE TY 08/25/2010 Ot 250.63 DIAB W NEURO MANIFEST, TYPE I [JUVENILE 08/25/2010 Ot 275.2 DIS MAGNESIUM METABOLISM 08/25/2010 Ot 275.3 DIS PHOSPHORUS METABOL 08/25/2010 Ot 276.8 HYPOPOTASSEMIA 08/25/2010 Ot 311 DEPRESSIVE DISORDER NEC 08/25/2010 Ot 357.2 NEUROPATHY IN DIABETES 08/25/2010 Ot 584.9 ACUTE RENAL FAILURE, UNSPECIFIED 08/25/2010 Ot V45.85 INSULIN PUMP STATUS 08/26/2010 782.3 EDEMA 08/26/2010 786.05 SHORTNESS OF BREATH 08/26/2010 EUGENIO BELTRAN APRN 782.3 EDEMA 08/26/2010 EUGENIO BELTRAN APRN 786.05 SHORTNESS OF BREATH 08/26/2010 782.3 EDEMA 08/26/2010 786.05 SHORTNESS OF BREATH 08/26/2010 EUGENIO BELTRAN APRN 782.3 EDEMA 08/26/2010 EUGENIO BELTRAN APRN 786.05 SHORTNESS OF BREATH 08/26/2010 782.3 EDEMA 08/26/2010 786.05 SHORTNESS OF BREATH 08/26/2010 782.3 EDEMA 08/26/2010 786.05 SHORTNESS OF BREATH 08/26/2010 782.3 EDEMA 08/26/2010 786.05 SHORTNESS OF BREATH 08/26/2010 782.3 EDEMA 08/26/2010 786.05 SHORTNESS OF BREATH 08/26/2010 782.3 EDEMA 08/26/2010 786.05 SHORTNESS OF BREATH 08/26/2010 EUGENIO BELTRAN APRN 782.3 EDEMA 08/26/2010 EUGENIO BELTRAN APRN 786.05 SHORTNESS OF BREATH 08/26/2010 JACOB DAWSON DO 782.3 EDEMA 08/26/2010 DAWSON DO, JACOB K 786.05 SHORTNESS OF BREATH 08/26/2010 DEVIN MALWARE ANALYST, EUGENIO S 782.3 EDEMA 08/26/2010 DEVIN MALWARE ANALYST, EUGENIO S 786.05 SHORTNESS OF BREATH 08/26/2010 DAWSON DO, JACOB K 782.3 EDEMA 08/26/2010 DAWSON DO, JACOB K 786.05 SHORTNESS OF BREATH 08/26/2010 DEVIN MALWARE ANALYST, EUGENIO S 782.3 EDEMA 08/26/2010 DEVIN MALWARE ANALYST, EUGENIO S 786.05 SHORTNESS OF BREATH 08/26/2010 DEVIN MALWARE ANALYST, EUGENIO S 782.3 EDEMA 08/26/2010 DEVIN MALWARE ANALYST, EUGENIO S 786.05 SHORTNESS OF BREATH 08/26/2010 DEVIN MALWARE ANALYST, EUGENIO S 782.3 EDEMA 08/26/2010 DEVIN MALWARE ANALYST, EUGENIO S 786.05 SHORTNESS OF BREATH 08/26/2010 DEVIN MALWARE ANALYST, EUGENIO S 782.3 EDEMA 08/26/2010 DEVIN MALWARE ANALYST, EUGENIO S 786.05 SHORTNESS OF BREATH 08/26/2010 DAWSON DO, JACOB K 782.3 EDEMA 08/26/2010 DAWSON DO, JACOB K 786.05 SHORTNESS OF BREATH 08/26/2010 DELCID FRANCISCO DUARTE D 782.3 EDEMA 08/26/2010 DELCID FRANCISCO DUARTE 786.05 SHORTNESS OF BREATH 08/26/2010 DELCID FRANCISCO DUARTE 782.3 EDEMA 08/26/2010 DELCID FRANCISCO DUARTE 786.05 SHORTNESS OF BREATH 08/26/2010 DELCID TR DUARTEON D 782.3 EDEMA 08/26/2010 DELCID FRANCISCO DUARTE 786.05 SHORTNESS OF BREATH 08/26/2010 DEVIN MALWARE ANALYST, EUGENIO S 782.3 EDEMA 08/26/2010 DEVIN MALWARE ANALYST, EUGENIO S 786.05 SHORTNESS OF BREATH 08/26/2010 LUPILLO MALWARE ANALYST, MARCOS A 782.3 EDEMA 08/26/2010 LUPILLO MALWARE ANALYST, MARCOS A 786.05 SHORTNESS OF BREATH 08/26/2010 DEVIN MALWARE ANALYST, EUGENIO S 782.3 EDEMA 08/26/2010 DEVIN MALWARE ANALYST EUGENIO S 786.05 SHORTNESS OF BREATH 09/03/2010 V67.9 Unspecified Follow-up Examination 09/03/2010 DEVIN MALWARE ANALYST, EUGENIO S V67.9 Unspecified Follow-up Examination 09/03/2010 V67.9 Unspecified Follow-up Examination 09/03/2010 DEVIN MALWARE ANALYST, EUGENIO S V67.9 Unspecified Follow-up Examination 09/03/2010 V67.9 Unspecified Follow-up Examination 09/03/2010 V67.9 Unspecified Follow-up Examination 09/03/2010 V67.9 Unspecified Follow-up Examination 09/03/2010 V67.9 Unspecified Follow-up Examination 09/03/2010 V67.9 Unspecified Follow-up Examination 09/03/2010 DEVIN DUARTE, EUGENIO S V67.9 Unspecified Follow-up Examination 09/03/2010 DAWSON DO, JACOB K V67.9 Unspecified Follow-up Examination 09/03/2010 DEVIN MALWARE ANALYST, EUGENIO S V67.9 Unspecified Follow-up Examination 09/03/2010 DAWSON DO, JACOB K V67.9 Unspecified Follow-up Examination 09/03/2010 DEVIN MALWARE ANALYST, EUGENIO S V67.9 Unspecified Follow-up Examination 09/03/2010 DEVIN MALWARE ANALYST, EUGENIO S V67.9 Unspecified Follow-up Examination 09/03/2010 DEVIN DUARTE, EUGENIO S V67.9 Unspecified Follow-up Examination 09/03/2010 DEVIN SANTIAGON, EUGENIO S V67.9 Unspecified Follow-up Examination 09/03/2010 DAWSON DO, JACOB K V67.9 Unspecified Follow-up Examination 09/03/2010 DELCID MALWARE ANALYST, FRANCISCO D V67.9 Unspecified Follow-up Examination 09/03/2010 DELCID MALWARE ANALYST, FRANCISCO D V67.9 Unspecified Follow-up Examination 09/03/2010 DELCID MALWARE ANALYST, FRANCISCO D V67.9 Unspecified Follow-up Examination 09/03/2010 DEVIN SANTIAGON EUGENIO S V67.9 Unspecified Follow-up Examination 09/03/2010 LUPILLO DUARTE MARCOS A V67.9 Unspecified Follow-up Examination 09/03/2010 EUGENIO BELTRAN APRN S V67.9 Unspecified Follow-up Examination 11/17/2010 V68.1 ISSUE OF REPEAT PRESCRIPTIONS 11/17/2010 PATRICE BELTRAN APRNA S V68.1 ISSUE OF REPEAT PRESCRIPTIONS 11/17/2010 V68.1 ISSUE OF REPEAT PRESCRIPTIONS 11/17/2010 PATRICE BELTRAN APRNA S V68.1 ISSUE OF REPEAT PRESCRIPTIONS 11/17/2010 V68.1 ISSUE OF REPEAT PRESCRIPTIONS 11/17/2010 V68.1 ISSUE OF REPEAT PRESCRIPTIONS 11/17/2010 V68.1 ISSUE OF REPEAT PRESCRIPTIONS 11/17/2010 V68.1 ISSUE OF REPEAT PRESCRIPTIONS 11/17/2010 V68.1 ISSUE OF REPEAT PRESCRIPTIONS 11/17/2010 PATRICE BELTRAN APRNA S V68.1 ISSUE OF REPEAT PRESCRIPTIONS 11/17/2010 DAWSON DO JACOB K V68.1 ISSUE OF REPEAT PRESCRIPTIONS 11/17/2010 PATRICE BELTRAN APRNA S V68.1 ISSUE OF REPEAT PRESCRIPTIONS 11/17/2010 DAWSON DO JACOB K V68.1 ISSUE OF REPEAT PRESCRIPTIONS 11/17/2010 PATRICE BELTRAN APRNA S V68.1 ISSUE OF REPEAT PRESCRIPTIONS 11/17/2010 PATRICE BELTRAN APRNA S V68.1 ISSUE OF REPEAT PRESCRIPTIONS 11/17/2010 PATRICE BELTRAN APRNA S V68.1 ISSUE OF REPEAT PRESCRIPTIONS 11/17/2010 PATRICE BELTRAN APRNA S V68.1 ISSUE OF REPEAT PRESCRIPTIONS 11/17/2010 DAWSON DO JACOB K V68.1 ISSUE OF REPEAT PRESCRIPTIONS 11/17/2010 FRANCISCO DELCID APRN V68.1 ISSUE OF REPEAT PRESCRIPTIONS 11/17/2010 FRANCISCO DELCID APRN V68.1 ISSUE OF REPEAT PRESCRIPTIONS 11/17/2010 FRANCISCO DELCID APRN V68.1 ISSUE OF REPEAT PRESCRIPTIONS 11/17/2010 PATRICE BELTRAN APRNA S V68.1 ISSUE OF REPEAT PRESCRIPTIONS 11/17/2010 MARCOS WESLEY APRN A V68.1 ISSUE OF REPEAT PRESCRIPTIONS 11/17/2010 PATRICE BELTRAN APRNA S V68.1 ISSUE OF REPEAT PRESCRIPTIONS 12/25/2010 110.1 ONYCHOMYCOSIS 12/25/2010 110.4 Tinea Pedis 12/25/2010 703.8 Onychocryptosis 12/25/2010 EUGENIO BELTRAN APRN S 110.1 ONYCHOMYCOSIS 12/25/2010 EUGENIO BELTRAN APRN S 110.4 Tinea Pedis 12/25/2010 EUGENIO BELTRAN APRN S 703.8 Onychocryptosis 12/25/2010 110.1 ONYCHOMYCOSIS 12/25/2010 110.4 Tinea Pedis 12/25/2010 703.8 Onychocryptosis 12/25/2010 EUGENIO BELTRAN APRN S 110.1 ONYCHOMYCOSIS 12/25/2010 EUGENIO BELTRAN APRN S 110.4 Tinea Pedis 12/25/2010 EUGENIO BELTRAN APRN S 703.8 Onychocryptosis 12/25/2010 110.1 ONYCHOMYCOSIS 12/25/2010 110.4 Tinea Pedis 12/25/2010 703.8 Onychocryptosis 12/25/2010 110.1 ONYCHOMYCOSIS 12/25/2010 110.4 Tinea Pedis 12/25/2010 703.8 Onychocryptosis 12/25/2010 110.1 ONYCHOMYCOSIS 12/25/2010 110.4 Tinea Pedis 12/25/2010 703.8 Onychocryptosis 12/25/2010 110.1 ONYCHOMYCOSIS 12/25/2010 110.4 Tinea Pedis 12/25/2010 703.8 Onychocryptosis 12/25/2010 110.1 ONYCHOMYCOSIS 12/25/2010 110.4 Tinea Pedis 12/25/2010 703.8 Onychocryptosis 12/25/2010 EUGENIO BELTRAN APRN S 110.1 ONYCHOMYCOSIS 12/25/2010 EUGENIO BELTRAN APRN S 110.4 Tinea Pedis 12/25/2010 EUGENIO BELTRAN APRN S 703.8 Onychocryptosis 12/25/2010 DAWSON DOLONAA K 110.1 ONYCHOMYCOSIS 12/25/2010 DAWSON DO, JACOB K 110.4 Tinea Pedis 12/25/2010 DAWSON DO, JACOB K 703.8 Onychocryptosis 12/25/2010 DEVIN MALWARE ANALYST, EUGENIO S 110.1 ONYCHOMYCOSIS 12/25/2010 DEVIN MALWARE ANALYST, EUGENIO S 110.4 Tinea Pedis 12/25/2010 DEVIN MALWARE ANALYST, EUGENIO S 703.8 Onychocryptosis 12/25/2010 DAWSON DO, JACOB K 110.1 ONYCHOMYCOSIS 12/25/2010 DAWSON DO, JACOB K 110.4 Tinea Pedis 12/25/2010 DAWSON DO, JACOB K 703.8 Onychocryptosis 12/25/2010 DEVIN MALWARE ANALYST, EUGENIO S 110.1 ONYCHOMYCOSIS 12/25/2010 DEVIN MALWARE ANALYST, EUGENIO S 110.4 Tinea Pedis 12/25/2010 DEVIN MALWARE ANALYST, EUGENIO S 703.8 Onychocryptosis 12/25/2010 DEVIN MALWARE ANALYST, EUGENIO S 110.1 ONYCHOMYCOSIS 12/25/2010 DEVIN MALWARE ANALYST, EUGENIO S 110.4 Tinea Pedis 12/25/2010 DEVIN MALWARE ANALYST, EUGENIO S 703.8 Onychocryptosis 12/25/2010 DEVIN MALWARE ANALYST, EUGENIO S 110.1 ONYCHOMYCOSIS 12/25/2010 DEVIN MALWARE ANALYST, EUGENIO S 110.4 Tinea Pedis 12/25/2010 DEVIN MALWARE ANALYST, EUGENIO S 703.8 Onychocryptosis 12/25/2010 DEVIN MALWARE ANALYST, EUGENIO S 110.1 ONYCHOMYCOSIS 12/25/2010 DEVIN MALWARE ANALYST, EUGENIO S 110.4 Tinea Pedis 12/25/2010 DEVIN MALWARE ANALYST, EUGENIO S 703.8 Onychocryptosis 12/25/2010 DAWSON DO, JACOB K 110.1 ONYCHOMYCOSIS 12/25/2010 DAWSON DO, JACOB K 110.4 Tinea Pedis 12/25/2010 DAWSON DO, JACOB K 703.8 Onychocryptosis 12/25/2010 DELCID MALWARE ANALYST, FRANCISCO D 110.1 ONYCHOMYCOSIS 12/25/2010 DELCID MALWARE ANALYST, FRANCISCO D 110.4 Tinea Pedis 12/25/2010 DELCID MALWARE ANALYST, FRANCISCO D 703.8 Onychocryptosis 12/25/2010 DELCID MALWARE ANALYST, FRANCISCO D 110.1 ONYCHOMYCOSIS 12/25/2010 DELCID MALWARE ANALYST, FRANCISCO D 110.4 Tinea Pedis 12/25/2010 DELCID MALWARE ANALYST, FRANCISCO D 703.8 Onychocryptosis 12/25/2010 DELCID MALWARE ANALYST, FRANCISCO D 110.1 ONYCHOMYCOSIS 12/25/2010 DELCID MALWARE ANALYST, FRANCISCO D 110.4 Tinea Pedis 12/25/2010 DELCID MALWARE ANALYST, FRANCISCO D 703.8 Onychocryptosis 12/25/2010 DEVIN MALWARE ANALYST, EUGENIO S 110.1 ONYCHOMYCOSIS 12/25/2010 DEVIN MALWARE ANALYST, EUGENIO S 110.4 Tinea Pedis 12/25/2010 DEVIN MALWARE ANALYST, EUGENIO S 703.8 Onychocryptosis 12/25/2010 LUPILLO MALWARE ANALYST, MARCOS A 110.1 ONYCHOMYCOSIS 12/25/2010 LUPILLO MALWARE ANALYST, MARCOS A 110.4 Tinea Pedis 12/25/2010 LUPILLO MALWARE ANALYST, MARCOS A 703.8 Onychocryptosis 12/25/2010 DEVIN MALWARE ANALYST, EUGENIO S 110.1 ONYCHOMYCOSIS 12/25/2010 DEVIN DUARTE, EUGENIO S 110.4 Tinea Pedis 12/25/2010 DEVIN DUARTE, EUGENIO S 703.8 Onychocryptosis 01/05/2011 V74.1 Tb Screening 01/05/2011 DEVIN DUARTE EUGENIO S V74.1 Tb Screening 01/05/2011 V74.1 Tb Screening 01/05/2011 DEVIN DUARTE EUGENIO S V74.1 Tb Screening 01/05/2011 V74.1 Tb Screening 01/05/2011 V74.1 Tb Screening 01/05/2011 V74.1 Tb Screening 01/05/2011 V74.1 Tb Screening 01/05/2011 V74.1 Tb Screening 01/05/2011 THOMAS BELTRAN APRNNDA S V74.1 Tb Screening 01/05/2011 DAWSON DO, JACOB K V74.1 Tb Screening 01/05/2011 DEVIN MALWARE ANALYST, EUGENIO S V74.1 Tb Screening 01/05/2011 DAWSON DO, JACOB K V74.1 Tb Screening 01/05/2011 DEVIN MALWARE ANALYST, EUGENIO S V74.1 Tb Screening 01/05/2011 DEVIN MALWARE ANALYST, EUGENIO S V74.1 Tb Screening 01/05/2011 DEVIN MALWARE ANALYST, EUGENIO S V74.1 Tb Screening 01/05/2011 DEVIN MALWARE ANALYST, EUGENIO S V74.1 Tb Screening 01/05/2011 DAWSON DO, JACOB K V74.1 Tb Screening 01/05/2011 DELCID MALWARE ANALYSTTR HumphreysON D V74.1 Tb Screening 01/05/2011 DELCID MALWARE ANALYST, FRANCISCO D V74.1 Tb Screening 01/05/2011 DELCID MALWARE ANALYSTTR HumphreysON D V74.1 Tb Screening 01/05/2011 DEVIN MALWARE ANALYST, EUGENIO S V74.1 Tb Screening 01/05/2011 LUPILLO MALWARE ANALYST, MARCOS A V74.1 Tb Screening 01/05/2011 DEVIN MALWARE ANALYST, EUGENIO S V74.1 Tb Screening 01/30/2011 Ot 250.01 DIAB NESTOR WO COMPL, TYPE I [JUVENILE TYP 01/30/2011 Ot 791.9 ABN URINE FINDINGS NEC 01/30/2011 Ot V58.67 LONG-TERM ( 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 OF INSULIN 02/01/2011 790.4 ABNORMAL LFT ( ELEVATED) 02/01/2011 PATRICE BELTRAN APRNA S 790.4 ABNORMAL LFT (ELEVATED) 02/01/2011 790.4 ABNORMAL LFT ( ELEVATED) 02/01/2011 THOMAS BELTRAN APRNNDA S 790.4 ABNORMAL LFT (ELEVATED) 02/01/2011 790.4 ABNORMAL LFT ( ELEVATED) 02/01/2011 790.4 ABNORMAL LFT ( ELEVATED) 02/01/2011 790.4 ABNORMAL LFT ( ELEVATED) 02/01/2011 790.4 ABNORMAL LFT ( ELEVATED) 02/01/2011 790.4 ABNORMAL LFT ( ELEVATED) 02/01/2011 DEVIN MALWARE ANALYST, EUGENIO S 790.4 ABNORMAL LFT (ELEVATED) 02/01/2011 DAWSON DO, JACOB K 790.4 ABNORMAL LFT (ELEVATED) 02/01/2011 DEVIN MALWARE ANALYST, EUGENIO S 790.4 ABNORMAL LFT (ELEVATED) 02/01/2011 DAWSON DO, JACOB K 790.4 ABNORMAL LFT (ELEVATED) 02/01/2011 DEVIN MALWARE ANALYST, EUGENIO S 790.4 ABNORMAL LFT (ELEVATED) 02/01/2011 DEVIN MALWARE ANALYST, EUGENIO S 790.4 ABNORMAL LFT (ELEVATED) 02/01/2011 DEVIN MALWARE ANALYST, EUGENIO S 790.4 ABNORMAL LFT (ELEVATED) 02/01/2011 DEVIN MALWARE ANALYST, EUGENIO S 790.4 ABNORMAL LFT (ELEVATED) 02/01/2011 DAWSON DO, JACOB K 790.4 ABNORMAL LFT (ELEVATED) 02/01/2011 DELCID MALWARE ANALYST FRANCISCO D 790.4 ABNORMAL LFT (ELEVATED) 02/01/2011 DELCID MALWARE ANALYSTTRON D 790.4 ABNORMAL LFT (ELEVATED) 02/01/2011 DELCID MALWARE ANALYST FRANCISCO D 790.4 ABNORMAL LFT (ELEVATED) 02/01/2011 DEVIN MALWARE ANALYST, EUGENIO S 790.4 ABNORMAL LFT (ELEVATED) 02/01/2011 LUPILLO DUARTE MARCOS A 790.4 ABNORMAL LFT (ELEVATED) 02/01/2011 DEVIN MALWARE ANALYST, EUGENIO S 790.4 ABNORMAL LFT (ELEVATED) 02/11/2011 717.3 Other And Unspecified Derangement Of Medial Meniscus 02/11/2011 EUGENIO BELTRAN APRN S 717.3 Other And Unspecified Derangement Of Medial Meniscus 02/11/2011 717.3 Other And Unspecified Derangement Of Medial Meniscus 02/11/2011 EUGENIO BELTRAN APRN S 717.3 Other And Unspecified Derangement Of Medial Meniscus 02/11/2011 717.3 Other And Unspecified Derangement Of Medial Meniscus 02/11/2011 717.3 Other And Unspecified Derangement Of Medial Meniscus 02/11/2011 717.3 Other And Unspecified Derangement Of Medial Meniscus 02/11/2011 717.3 Other And Unspecified Derangement Of Medial Meniscus 02/11/2011 717.3 Other And Unspecified Derangement Of Medial Meniscus 02/11/2011 DEVIN MALWARE ANALYST, EUGENIO S 717.3 Other And Unspecified Derangement Of Medial Meniscus 02/11/2011 DAWSON DO, JACOB K 717.3 Other And Unspecified Derangement Of Medial Meniscus 02/11/2011 DEVIN MALWARE ANALYST, EUGENIO S 717.3 Other And Unspecified Derangement Of Medial Meniscus 02/11/2011 DAWSON DO, JACOB K 717.3 Other And Unspecified Derangement Of Medial Meniscus 02/11/2011 DEVIN MALWARE ANALYST, EUGENIO S 717.3 Other And Unspecified Derangement Of Medial Meniscus 02/11/2011 DEVIN MALWARE ANALYST, EUGENIO S 717.3 Other And Unspecified Derangement Of Medial Meniscus 02/11/2011 DEVIN MALWARE ANALYST, EUGENIO S 717.3 Other And Unspecified Derangement Of Medial Meniscus 02/11/2011 DEVIN MALWARE ANALYST, EUGENIO S 717.3 Other And Unspecified Derangement Of Medial Meniscus 02/11/2011 DAWSON DO, JACOB K 717.3 Other And Unspecified Derangement Of Medial Meniscus 02/11/2011 DECLID MALWARE ANALYSTFRANCISCO D 717.3 Other And Unspecified Derangement Of Medial Meniscus 02/11/2011 DELCID MALWARE ANALYSTTRON D 717.3 Other And Unspecified Derangement Of Medial Meniscus 02/11/2011 DELCID MALWARE ANALYSTTRON D 717.3 Other And Unspecified Derangement Of Medial Meniscus 02/11/2011 DEVIN SANTIAGON EUGENIO S 717.3 Other And Unspecified Derangement Of Medial Meniscus 02/11/2011 LUPILLOPetr DUARTE MARCOS A 717.3 Other And Unspecified Derangement Of Medial Meniscus 02/11/2011 DEVIN MALWARE ANALYSTTHOMASEUGENIO S 717.3 Other And Unspecified Derangement Of Medial Meniscus 03/23/2011 709.9 Skin Lesions 03/23/2011 PATRICE BELTRAN APRNA S 709.9 Skin Lesions 03/23/2011 709.9 Skin Lesions 03/23/2011 PATRICE BELTRAN APRNA S 709.9 Skin Lesions 03/23/2011 709.9 Skin Lesions 03/23/2011 709.9 Skin Lesions 03/23/2011 709.9 Skin Lesions 03/23/2011 709.9 Skin Lesions 03/23/2011 709.9 Skin Lesions 03/23/2011 DEVIN MALWARE ANALYST, EUGENIO S 709.9 Skin Lesions 03/23/2011 DAWSON DO, JACOB K 709.9 Skin Lesions 03/23/2011 DEVIN MALWARE ANALYST, EUGENIO S 709.9 Skin Lesions 03/23/2011 DAWSON DO, JACOB K 709.9 Skin Lesions 03/23/2011 DEVIN MALWARE ANALYST, EUGENIO S 709.9 Skin Lesions 03/23/2011 DEVIN MALWARE ANALYST, EUGENIO S 709.9 Skin Lesions 03/23/2011 DEVIN MALWARE ANALYST, EUGENIO S 709.9 Skin Lesions 03/23/2011 DEVIN MALWARE ANALYST, EUGENIO S 709.9 Skin Lesions 03/23/2011 DAWSON DO, JACOB K 709.9 Skin Lesions 03/23/2011 DELCID MALWARE ANALYST, FRANCISCO D 709.9 Skin Lesions 03/23/2011 DELCID MALWARE ANALYST, FRANCISCO D 709.9 Skin Lesions 03/23/2011 DELCID MALWARE ANALYST, FRANCISCO D 709.9 Skin Lesions 03/23/2011 DEVIN MALWARE ANALYST, EUGENIO S 709.9 Skin Lesions 03/23/2011 LUPILLO MALWARE ANALYST, MARCOS A 709.9 Skin Lesions 03/23/2011 DEVIN MALWARE ANALYST, EUGENIO S 709.9 Skin Lesions 09/07/2011 729.5 ARM PAIN 09/07/2011 THOMAS BELTRAN APRNNDA S 729.5 ARM PAIN 09/07/2011 729.5 ARM PAIN 09/07/2011 DEVIN MALWARE ANALYST, EUGENIO S 729.5 ARM PAIN 09/07/2011 729.5 ARM PAIN 09/07/2011 729.5 pain in the left foot 09/07/2011 729.5 pain in the left foot 09/07/2011 729.5 pain in the left foot 09/07/2011 729.5 pain in the left foot 09/07/2011 THOMAS BELTRAN APRNNDA S 729.5 pain in the left foot 09/07/2011 DAWSON DO, JACOB K 729.5 pain in the left foot 09/07/2011 DEVIN MALWARE ANALYST, EUGENIO S 729.5 pain in the left foot 09/07/2011 DAWSON DO, JACOB K 729.5 pain in the left foot 09/07/2011 DEVIN MALWARE ANALYST, EUGENIO S 729.5 pain in the left foot 09/07/2011 DEVIN MALWARE ANALYST, EUGENIO S 729.5 pain in the left foot 09/07/2011 DEVIN MALWARE ANALYST, EUGENIO S 729.5 pain in the left foot 09/07/2011 DEVIN MALWARE ANALYST, EUGENIO S 729.5 pain in the left foot 09/07/2011 DWASON DO, JACOB K 729.5 pain in the left foot 09/07/2011 DELCID MALWARE ANALYSTTRON D 729.5 pain in the left foot 09/07/2011 DELCID MALWARE ANALYSTTRON D 729.5 pain in the left foot 09/07/2011 DELCID MALWARE ANALYSTTRON D 729.5 pain in the left foot 09/07/2011 DEVIN MALWARE ANALYST, EUGENIO S 729.5 PAIN IN THE LEFT FOOT 09/07/2011 LUPILLO MALWARE ANALYST, MARCOS A 729.5 PAIN IN THE LEFT FOOT 09/07/2011 DEVIN MALWARE ANALYST, EUGENIO S 729.5 PAIN IN THE LEFT FOOT 11/30/2011 V74.1 TB SCREENING 11/30/2011 THOMAS BELTRAN APRNNDA S V74.1 TB SCREENING 11/30/2011 V74.1 TB SCREENING 11/30/2011 DEVIN MALWARE ANALYSTTHOMAS HumphreysNDA S V74.1 TB SCREENING 11/30/2011 V74.1 TB SCREENING 11/30/2011 V74.1 TB SCREENING 11/30/2011 V74.1 TB SCREENING 11/30/2011 V74.1 TB SCREENING 11/30/2011 V74.1 TB SCREENING 11/30/2011 THOMAS BELTRAN APRNNDA S V74.1 TB SCREENING 11/30/2011 DAWSON DOLONAA K V74.1 TB SCREENING 11/30/2011 THOMAS BELTRAN APRNNDA S V74.1 TB SCREENING 11/30/2011 DAWSON DO, JACOB K V74.1 TB SCREENING 11/30/2011 DEVIN MALWARE ANALYST, EUGENIO S V74.1 TB SCREENING 11/30/2011 DEVIN MALWARE ANALYST, EUGENIO S V74.1 TB SCREENING 11/30/2011 DEVIN MALWARE ANALYST, EUGENIO S V74.1 TB SCREENING 11/30/2011 DEVIN MALWARE ANALYST, EUGENIO S V74.1 TB SCREENING 11/30/2011 DAWSON DO JACOB K V74.1 TB SCREENING 11/30/2011 DELCID MALWARE ANALYST, FRANCISCO D V74.1 TB SCREENING 11/30/2011 DELCID MALWARE ANALYST, FRANCISCO D V74.1 TB SCREENING 11/30/2011 DELCID MALWARE ANALYST, FRANCISCO D V74.1 TB SCREENING 11/30/2011 DEVIN MALWARE ANALYST, EUGENIO S V74.1 TB SCREENING 11/30/2011 LUPILLO MALWARE ANALYST, MARCOS A V74.1 TB SCREENING 11/30/2011 DEVIN MALWARE ANALYST, EUGENIO S V74.1 TB SCREENING 02/24/2012 700 CORNS AND CALLOSITIES 02/24/2012 786.2 COUGH 02/24/2012 DEVIN MALWARE ANALYST, EUGENIO S 700 CORNS AND CALLOSITIES 02/24/2012 DEVIN MALWARE ANALYST, EUGENIO S 786.2 COUGH 02/24/2012 700 CORNS AND CALLOSITIES 02/24/2012 786.2 COUGH 02/24/2012 DEVIN DUARTE, EUGENIO S 700 CORNS AND CALLOSITIES 02/24/2012 DEVIN MALWARE ANALYST, EUGENIO S 786.2 COUGH 02/24/2012 700 CORNS AND CALLOSITIES 02/24/2012 786.2 COUGH 02/24/2012 700 CORNS AND CALLOSITIES 02/24/2012 786.2 COUGH 02/24/2012 700 CORNS AND CALLOSITIES 02/24/2012 786.2 COUGH 02/24/2012 700 CORNS AND CALLOSITIES 02/24/2012 786.2 COUGH 02/24/2012 700 CORNS AND CALLOSITIES 02/24/2012 786.2 COUGH 02/24/2012 DEVIN MALWARE ANALYST, EUGENIO S 700 CORNS AND CALLOSITIES 02/24/2012 DEVIN DUARTE, EUGENIO S 786.2 COUGH 02/24/2012 DAWSON DO JACOB K 700 CORNS AND CALLOSITIES 02/24/2012 DAWSON DO, JACOB K 786.2 COUGH 02/24/2012 DEVIN MALWARE ANALYST, EUGENIO S 700 CORNS AND CALLOSITIES 02/24/2012 DEVIN MALWARE ANALYST, EUGENIO S 786.2 COUGH 02/24/2012 DAWSON DO, JACOB K 700 CORNS AND CALLOSITIES 02/24/2012 DAWSON DO, JACOB K 786.2 COUGH 02/24/2012 DEVIN MALWARE ANALYST, EUGENIO S 700 CORNS AND CALLOSITIES 02/24/2012 DEVIN MALWARE ANALYST, EUGENIO S 786.2 COUGH 02/24/2012 DEVIN MALWARE ANALYST, EUGENIO S 700 CORNS AND CALLOSITIES 02/24/2012 DEVIN MALWARE ANALYST, EUGENIO S 786.2 COUGH 02/24/2012 DEVIN MALWARE ANALYST, EUGENIO S 700 CORNS AND CALLOSITIES 02/24/2012 DEVIN MALWARE ANALYST, EUGENIO S 786.2 COUGH 02/24/2012 DEVIN MALWARE ANALYST, EUGENIO S 700 CORNS AND CALLOSITIES 02/24/2012 DEVIN MALWARE ANALYST, EUGENIO S 786.2 COUGH 02/24/2012 DAWSON DO, JACOB K 700 CORNS AND CALLOSITIES 02/24/2012 DAWSON DO, JACOB K 786.2 COUGH 02/24/2012 DELCID MALWARE ANALYST, FRANCISCO D 700 CORNS AND CALLOSITIES 02/24/2012 DELCID MALWARE ANALYST, FRANCISCO D 786.2 COUGH 02/24/2012 DELCID MALWARE ANALYST, FRANCISCO D 700 CORNS AND CALLOSITIES 02/24/2012 DELCID MALWARE ANALYSTTR HumphreysON D 786.2 COUGH 02/24/2012 DELCID MALWARE ANALYST, FRANCISCO D 700 CORNS AND CALLOSITIES 02/24/2012 DELCID MALWARE ANALYST FRANCISCO D 786.2 COUGH 02/24/2012 DEVNI MALWARE ANALYST, EUGENIO S 700 CORNS AND CALLOSITIES 02/24/2012 DEVIN MALWARE ANALYST, EUGENIO S 786.2 COUGH 02/24/2012 LUPILLO MALWARE ANALYST, MARCOS A 700 CORNS AND CALLOSITIES 02/24/2012 LUPILLO MALWARE ANALYST, MARCOS A 786.2 COUGH 02/24/2012 DEVIN MALWARE ANALYST, EUGENIO S 700 CORNS AND CALLOSITIES 02/24/2012 DEVIN MALWARE ANALYST, EUGENIO S 786.2 COUGH 04/13/2012 239.3 BREAST MASS 04/13/2012 V76.10 BREAST CANCER SCREENING 04/13/2012 V76.2 CERVICAL CANCER SCREENING (PAP SMEAR) 04/13/2012 EUGENIO BELTRAN APRN S 239.3 BREAST MASS 04/13/2012 EUGENIO BELTRAN APRN S V76.10 BREAST CANCER SCREENING 04/13/2012 EUGENIO BELTRAN APRN S V76.2 CERVICAL CANCER SCREENING (PAP SMEAR) 04/13/2012 239.3 BREAST MASS 04/13/2012 V76.10 BREAST CANCER SCREENING 04/13/2012 V76.2 CERVICAL CANCER SCREENING (PAP SMEAR) 04/13/2012 EUGENIO BELTRAN APRN S 239.3 BREAST MASS 04/13/2012 EUGENIO BELTRAN APRN S V76.10 BREAST CANCER SCREENING 04/13/2012 EUGENIO BELTRAN APRN S V76.2 CERVICAL CANCER SCREENING (PAP SMEAR) 04/13/2012 239.3 BREAST MASS 04/13/2012 V76.10 BREAST CANCER SCREENING 04/13/2012 V76.2 CERVICAL CANCER SCREENING (PAP SMEAR) 04/13/2012 239.3 BREAST MASS 04/13/2012 V76.10 BREAST CANCER SCREENING 04/13/2012 V76.2 CERVICAL CANCER SCREENING (PAP SMEAR) 04/13/2012 239.3 BREAST MASS 04/13/2012 V76.10 BREAST CANCER SCREENING 04/13/2012 V76.2 CERVICAL CANCER SCREENING (PAP SMEAR) 04/13/2012 239.3 BREAST MASS 04/13/2012 V76.10 BREAST CANCER SCREENING 04/13/2012 V76.2 CERVICAL CANCER SCREENING (PAP SMEAR) 04/13/2012 239.3 BREAST MASS 04/13/2012 V76.10 BREAST CANCER SCREENING 04/13/2012 V76.2 CERVICAL CANCER SCREENING (PAP SMEAR) 04/13/2012 EUGENIO BELTRAN APRN S 239.3 BREAST MASS 04/13/2012 EUGENIO BELTRAN APRN S V76.10 BREAST CANCER SCREENING 04/13/2012 EUGENIO BELTRAN APRN S V76.2 CERVICAL CANCER SCREENING (PAP SMEAR) 04/13/2012 JACOB DAWSON DO 239.3 BREAST MASS 04/13/2012 DAWSON DO, JACOB K V76.10 BREAST CANCER SCREENING 04/13/2012 DAWSON DO, JACOB K V76.2 CERVICAL CANCER SCREENING (PAP SMEAR) 04/13/2012 DEVIN MALWARE ANALYST, EUGENIO S 239.3 BREAST MASS 04/13/2012 DEVIN MALWARE ANALYST, EUGENIO S V76.10 BREAST CANCER SCREENING 04/13/2012 DEVIN MALWARE ANALYST, EUGENIO S V76.2 CERVICAL CANCER SCREENING (PAP SMEAR) 04/13/2012 DAWSON DO, JACOB K 239.3 BREAST MASS 04/13/2012 DAWSON DO, JACBO K V76.10 BREAST CANCER SCREENING 04/13/2012 DAWSON DO, JACOB K V76.2 CERVICAL CANCER SCREENING (PAP SMEAR) 04/13/2012 DEVIN MALWARE ANALYST, EUGENIO S 239.3 BREAST MASS 04/13/2012 DEVIN MALWARE ANALYST, EUGENIO S V76.10 BREAST CANCER SCREENING 04/13/2012 DEVIN DUARTE EUGENIO S V76.2 CERVICAL CANCER SCREENING (PAP SMEAR) 04/13/2012 DEVIN DUARTE, EUGENIO S 239.3 BREAST MASS 04/13/2012 DEVIN MALWARE ANALYST, EUGENIO S V76.10 BREAST CANCER SCREENING 04/13/2012 DEVIN MALWARE ANALYST, EUGENIO S V76.2 CERVICAL CANCER SCREENING (PAP SMEAR) 04/13/2012 DEVIN MALWARE ANALYST, EUGENIO S 239.3 BREAST MASS 04/13/2012 DEVIN MALWARE ANALYST, EUGENIO S V76.10 BREAST CANCER SCREENING 04/13/2012 DEVIN DUARTE, EUGENIO S V76.2 CERVICAL CANCER SCREENING (PAP SMEAR) 04/13/2012 DEVIN MALWARE ANALYST, EUGENIO S 239.3 BREAST MASS 04/13/2012 DEVIN MALWARE ANALYST, EUGENIO S V76.10 BREAST CANCER SCREENING 04/13/2012 DEVIN MALWARE ANALYST, EUGENIO S V76.2 CERVICAL CANCER SCREENING (PAP SMEAR) 04/13/2012 DAWSON DO, JACOB K 239.3 BREAST MASS 04/13/2012 DAWSON DO, JACOB K V76.10 BREAST CANCER SCREENING 04/13/2012 DAWSON DO, JACOB K V76.2 CERVICAL CANCER SCREENING (PAP SMEAR) 04/13/2012 FRANCISCO DELCID APRN D 239.3 BREAST MASS 04/13/2012 FRANCISCO DELCID APRN D V76.10 BREAST CANCER SCREENING 04/13/2012 FRANCISCO DELCID APRN V76.2 CERVICAL CANCER SCREENING (PAP SMEAR) 04/13/2012 DELCIDFRANCISCO Olson APRN D 239.3 BREAST MASS 04/13/2012 DELCIDFRANCISCO Olson APRN D V76.10 BREAST CANCER SCREENING 04/13/2012 DELCDIFRANCISCO Olson APRN V76.2 CERVICAL CANCER SCREENING (PAP SMEAR) 04/13/2012 DELCIDFRANCISCO Olson APRN D 239.3 BREAST MASS 04/13/2012 DELCIDFRANCISCO Olson APRN V76.10 BREAST CANCER SCREENING 04/13/2012 FRANCISCO DELCID APRN V76.2 CERVICAL CANCER SCREENING (PAP SMEAR) 04/13/2012 EUGENIO BELTRAN APRN S 239.3 BREAST MASS 04/13/2012 EUGENIO BELTRAN APRN S V76.10 BREAST CANCER SCREENING 04/13/2012 EUGENIO BELTRAN APRN S V76.2 CERVICAL CANCER SCREENING (PAP SMEAR) 04/13/2012 LUPILLOMAROCS Humphreys APRN A 239.3 BREAST MASS 04/13/2012 LUPILLOMARCOS ISABEL APRN A V76.10 BREAST CANCER SCREENING 04/13/2012 MARCOS WESLEY APRN A V76.2 CERVICAL CANCER SCREENING (PAP SMEAR) 04/13/2012 PATRICE BELTRAN APRNA S 239.3 BREAST MASS 04/13/2012 EUGENIO BELTRAN APRN S V76.10 BREAST CANCER SCREENING 04/13/2012 EUGENIO BELTRAN APRN S V76.2 CERVICAL CANCER SCREENING (PAP SMEAR) 07/03/2012 Ot 174.4 MAL PAWEL BREAST UP-OUTER 07/03/2012 Ot 196.3 MAL PAWEL LYMPH -AXILLA/ARM 07/03/2012 Ot 244.9 HYPOTHYROIDISM NOS 07/03/2012 Ot 250.01 DIAB NESTOR WO COMPL, TYPE I [JUVENILE TYP 07/03/2012 Ot 305.1 TOBACCO USE DISORDER 07/03/2012 Ot V16.0 FAMILY HX-GI MALIGNANCY 07/03/2012 Ot V16.1 FM HX-TRACH/ BRONCHOG MAL 07/03/2012 Ot V16.41 FAM HX-MAL NEOP-OVARY 07/03/2012 Ot V45.71 ACQUIRED ABSENCE OF BREAST AND NIPPLE 07/03/2012 Ot V45.77 ACQRD ABSENCE OF GENITAL ORGANS 07/03/2012 Ot V58.67 LONG-TERM ( 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 OF INSULIN 07/03/2012 Ot V58.69 OTH MED,LT, CURRENT USE 07/03/2012 Ot V86.0 ESTROGEN RECEPTOR POSITIVE STATUS [ER+] 07/18/2012 Ot 174.4 MAL PAWEL BREAST UP-OUTER 07/18/2012 Ot 196.3 MAL PAWEL LYMPH -AXILLA/ARM 07/18/2012 Ot 244.9 HYPOTHYROIDISM NOS 07/18/2012 Ot 250.01 DIAB NESTOR WO COMPL, TYPE I [JUVENILE TYP 07/18/2012 Ot 305.1 TOBACCO USE DISORDER 07/18/2012 Ot V45.71 ACQUIRED ABSENCE OF BREAST AND NIPPLE 07/18/2012 Ot V45.77 ACQRD ABSENCE OF GENITAL ORGANS 07/18/2012 Ot V58.11 ENCOUNTER FOR ANTINEOPLASTIC CHEMOTHERAP 07/18/2012 Ot V58.67 LONG-TERM ( 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 OF INSULIN 07/18/2012 Ot V58.69 OT MED,LT, CURRENT USE 07/18/2012 Ot V86.0 ESTROGEN RECEPTOR POSITIVE STATUS [ER+] 09/20/2012 682.2 CELLULITIS AND ABSCESS OF TRUNK 09/20/2012 EUGENIO BELTRAN APRN S 682.2 CELLULITIS AND ABSCESS OF TRUNK 09/20/2012 682.2 CELLULITIS AND ABSCESS OF TRUNK 09/20/2012 682.2 CELLULITIS AND ABSCESS OF TRUNK 09/20/2012 682.2 CELLULITIS AND ABSCESS OF TRUNK 09/20/2012 682.2 CELLULITIS AND ABSCESS OF TRUNK 09/20/2012 682.2 CELLULITIS AND ABSCESS OF TRUNK 09/20/2012 EUGENIO BELTRAN APRN S 682.2 CELLULITIS AND ABSCESS OF TRUNK 09/20/2012 JACOB DAWSON DO 682.2 CELLULITIS AND ABSCESS OF TRUNK 09/20/2012 EUGENIO BELTRAN APRN S 682.2 CELLULITIS AND ABSCESS OF TRUNK 09/20/2012 JACOB DAWSON DO 682.2 CELLULITIS AND ABSCESS OF TRUNK 09/20/2012 EUGENIO BELTRAN APRN S 682.2 CELLULITIS AND ABSCESS OF TRUNK 09/20/2012 DEVIN MALWARE ANALYST, EUGENIO S 682.2 CELLULITIS AND ABSCESS OF TRUNK 09/20/2012 DEVIN MALWARE ANALYST, EUGENIO S 682.2 CELLULITIS AND ABSCESS OF TRUNK 09/20/2012 DEVIN MALWARE ANALYST, EUGENIO S 682.2 CELLULITIS AND ABSCESS OF TRUNK 09/20/2012 DAWSON DO, JACOB K 682.2 CELLULITIS AND ABSCESS OF TRUNK 09/20/2012 DELCID MALWARE ANALYST, FRANCISCO D 682.2 CELLULITIS AND ABSCESS OF TRUNK 09/20/2012 DELCID MALWARE ANALYST, FRANCISCO D 682.2 CELLULITIS AND ABSCESS OF TRUNK 09/20/2012 DELCID MALWARE ANALYST, FRANCISCO D 682.2 CELLULITIS AND ABSCESS OF TRUNK 09/20/2012 DEVIN MALWARE ANALYST, EUGENIO S 682.2 CELLULITIS AND ABSCESS OF TRUNK 09/20/2012 LUPILLO MALWARE ANALYST, MARCOS A 682.2 CELLULITIS AND ABSCESS OF TRUNK 09/20/2012 DEVIN MALWARE ANALYST, EUGENIO S 682.2 CELLULITIS AND ABSCESS OF TRUNK 09/21/2012 V58.31 WOUND DRESSING 09/21/2012 DEVIN MALWARE ANALYST, EUEGNIO S V58.31 WOUND DRESSING 09/21/2012 V58.31 WOUND DRESSING 09/21/2012 V58.31 WOUND DRESSING 09/21/2012 V58.31 WOUND DRESSING 09/21/2012 V58.31 WOUND DRESSING 09/21/2012 V58.31 WOUND DRESSING 09/21/2012 DEVIN MALWARE ANALYST, EUGENIO S V58.31 WOUND DRESSING 09/21/2012 DAWSON DO, JACOB K V58.31 WOUND DRESSING 09/21/2012 DEVIN MALWARE ANALYST, EUGENIO S V58.31 WOUND DRESSING 09/21/2012 DAWSON DO, JACOB K V58.31 WOUND DRESSING 09/21/2012 DEVIN MALWARE ANALYST, EUGENIO S V58.31 WOUND DRESSING 09/21/2012 DEVIN MALWARE ANALYST, EUGENIO S V58.31 WOUND DRESSING 09/21/2012 DEVIN MALWARE ANALYST, EUGENIO S V58.31 WOUND DRESSING 09/21/2012 DEVIN MALWARE ANALYST, EUGENIO S V58.31 WOUND DRESSING 09/21/2012 DAWSON DO, JACOB K V58.31 WOUND DRESSING 09/21/2012 FRANCISCO DELCID APRN V58.31 WOUND DRESSING 09/21/2012 FRANCISCO DECLID APRN V58.31 WOUND DRESSING 09/21/2012 FRANCISCO DELCID APRN V58.31 WOUND DRESSING 09/21/2012 PATRICE BELTRAN APRNA S V58.31 WOUND DRESSING 09/21/2012 MARCOS WESLEY APRN V58.31 WOUND DRESSING 09/21/2012 PATRICE BELTRAN APRNA S V58.31 WOUND DRESSING 10/19/2012 KAREEM PENN Ot 174.4 MAL PAWEL BREAST UP-OUTER 10/19/2012 KAREEM PENN Ot 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 10/19/2012 KAREEM PENN Ot V58.11 ENCOUNTER FOR ANTINEOPLASTIC CHEMOTHERAP 10/19/2012 KAREEM PENN Ot V58.69 OTH MED,LT,CURRENT USE 10/19/2012 KAREEM PENN Ot V86.0 ESTROGEN RECEPTOR POSITIVE STATUS [ER+] 11/27/2012 250.80 DIABETES WITH OTHER SPECIFIED MANIFESTATIONS TYPE II OR UNSPECIFIED TYPE NOT STATED UNCONTROLLED 11/27/2012 EUGENIO BELTRAN APRN S 250.80 DIABETES WITH OTHER SPECIFIED MANIFESTATIONS TYPE II OR UNSPECIFIED TYPE NOT STATED UNCONTROLLED 11/27/2012 JACOB DAWSON DO 250.80 DIABETES WITH OTHER SPECIFIED MANIFESTATIONS TYPE II OR UNSPECIFIED TYPE NOT STATED UNCONTROLLED 11/27/2012 EUGENIO BELTRAN APRN S 250.80 DIABETES WITH OTHER SPECIFIED MANIFESTATIONS TYPE II OR UNSPECIFIED TYPE NOT STATED UNCONTROLLED 11/27/2012 JACOB DAWSON DO 250.80 DIABETES WITH OTHER SPECIFIED MANIFESTATIONS TYPE II OR UNSPECIFIED TYPE NOT STATED UNCONTROLLED 11/27/2012 THOMAS BELTRAN APRNNDA S 250.80 DIABETES WITH OTHER SPECIFIED MANIFESTATIONS TYPE II OR UNSPECIFIED TYPE NOT STATED UNCONTROLLED 11/27/2012 THOMAS BELTRAN APRNNDA S 250.80 DIABETES WITH OTHER SPECIFIED MANIFESTATIONS TYPE II OR UNSPECIFIED TYPE NOT STATED UNCONTROLLED 11/27/2012 THOMAS BELTRAN APRNNDA S 250.80 DIABETES WITH OTHER SPECIFIED MANIFESTATIONS TYPE II OR UNSPECIFIED TYPE NOT STATED UNCONTROLLED 11/27/2012 PATRICE BELTRAN APRNA S 250.80 DIABETES WITH OTHER SPECIFIED MANIFESTATIONS TYPE II OR UNSPECIFIED TYPE NOT STATED UNCONTROLLED 11/27/2012 EUNICE PEDRO JACOB K 250.80 DIABETES WITH OTHER SPECIFIED MANIFESTATIONS TYPE II OR UNSPECIFIED TYPE NOT STATED UNCONTROLLED 11/27/2012 FRANCISCO DELCID APRN 250.80 DIABETES WITH OTHER SPECIFIED MANIFESTATIONS TYPE II OR UNSPECIFIED TYPE NOT STATED UNCONTROLLED 11/27/2012 FRANCISCO DELCID APRN 250.80 DIABETES WITH OTHER SPECIFIED MANIFESTATIONS TYPE II OR UNSPECIFIED TYPE NOT STATED UNCONTROLLED 11/27/2012 FRANCISCO DELCID APRN 250.80 DIABETES WITH OTHER SPECIFIED MANIFESTATIONS TYPE II OR UNSPECIFIED TYPE NOT STATED UNCONTROLLED 11/27/2012 EUGENIO BELTRAN APRN S 250.80 DIABETES WITH OTHER SPECIFIED MANIFESTATIONS TYPE II OR UNSPECIFIED TYPE NOT STATED UNCONTROLLED 11/27/2012 MARCOS WESLEY APRN 250.80 DIABETES WITH OTHER SPECIFIED MANIFESTATIONS TYPE II OR UNSPECIFIED TYPE NOT STATED UNCONTROLLED 11/27/2012 EUGENIO BELTRAN APRN S 250.80 DIABETES WITH OTHER SPECIFIED MANIFESTATIONS TYPE II OR UNSPECIFIED TYPE NOT STATED UNCONTROLLED 01/18/2013 MUMTAZ MOYA [employer] Ot 174.9 MALIGN NEOPL BREAST NOS 01/18/2013 MUMTAZ MOYA [employer] Ot 457.1 OTHER LYMPHEDEMA 01/18/2013 MUMTAZ MOYA [employer] Ot V57.21 ENCOUNTER FOR OCCUPATIONAL THERAPY 01/24/2013 KAREEM PENN Ot 174.4 MAL PAWEL BREAST UP-OUTER 01/24/2013 KAREEM PENN Ot 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 01/24/2013 KAREEM PENN Ot V58.0 ENCOUNTER FOR RADIOTHERAPY 01/24/2013 KAREEM PENN Ot V58.11 ENCOUNTER FOR ANTINEOPLASTIC CHEMOTHERAP 01/24/2013 KAREEM PENN Ot V58.69 OTH MED,LT,CURRENT USE 01/24/2013 KAREEM PENN Ot V86.0 ESTROGEN RECEPTOR POSITIVE STATUS [ER+] 04/25/2013 KAREEM PENN Ot 174.4 MAL PAWEL BREAST UP-OUTER 04/25/2013 KAREEM PENN Ot 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 04/25/2013 KAREEM PENN Ot V58.0 ENCOUNTER FOR RADIOTHERAPY 04/25/2013 KAREEM PENN Ot V58.11 ENCOUNTER FOR ANTINEOPLASTIC CHEMOTHERAP 04/25/2013 KAREEM PENN Ot V58.69 OTH MED,LT,CURRENT USE 04/25/2013 KAREEM PENN Ot V86.0 ESTROGEN RECEPTOR POSITIVE STATUS [ER+] 07/31/2013 KAREEM PENN Ot 174.4 MAL PAWEL BREAST UP-OUTER 07/31/2013 KAREEM PENN Ot 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 07/31/2013 KAREEM PENN Ot V58.11 ENCOUNTER FOR ANTINEOPLASTIC CHEMOTHERAP 07/31/2013 KAREEM PENN Ot V58.69 OTH MED,LT,CURRENT USE 07/31/2013 KAREEM PENN Ot V86.0 ESTROGEN RECEPTOR POSITIVE STATUS [ER+] 02/27/2014 JACOB DAWSON DO 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 02/27/2014 FRANCISCO DELCID APRN 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 02/27/2014 FRANCISCO DELCID APRN 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 02/27/2014 FRANCISCO DELCID APRN 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 02/27/2014 EUGENIO BELTRAN APRN 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 02/27/2014 MARCOS WESLEY APRN 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 02/27/2014 EUGENIO BELTRAN APRN 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 03/14/2014 FRANCISCO DELCID APRN 727.03 TRIGGER FINGER (ACQUIRED) 03/14/2014 FRANCISCO DELCID APRN 727.03 TRIGGER FINGER (ACQUIRED) 03/14/2014 FRANCISCO DELCID APRN 727.03 TRIGGER FINGER (ACQUIRED) 03/14/2014 EUGENIO BELTRAN APRN 727.03 TRIGGER FINGER (ACQUIRED) 03/14/2014 MARCOS WESLEY APRN 727.03 TRIGGER FINGER (ACQUIRED) 03/14/2014 EUGENIO BELTRAN APRN 727.03 TRIGGER FINGER (ACQUIRED) 05/10/2014 ADRI GREEN, MADELINE Jackson Ot 174.9 05/10/2014 ADRI GREEN, MADELINE Jackson Ot 244.9 05/10/2014 ADRI GREEN, MADELINE Jackson Ot 397.0 05/10/2014 ADRI GREEN, MADELINE Jackson Ot 401.9 05/10/2014 ADRI GREEN, MADELINE J Ot 424.0 05/10/2014 ADRI GREEN, MADELINE Jackson Ot 782.3 05/13/2014 GRIFFIN MUMTAZ S [employer] Ot 174.9 05/13/2014 GRIFFIN DCAH S [employer] MENDER Ot 196.3 05/13/2014 MOYA, DCAH S [employer] MENDER Ot V15.3 05/13/2014 MOYA, DCAH S [employer] MENDER Ot V16.41 05/13/2014 GRIFFIN DCAH S [employer] MENDER Ot V45.71 05/13/2014 MOYA DCAH S [employer] MENDER Ot V58.69 05/13/2014 GRIFFIN MUMTAZ S [employer] MENDER Ot V86.0 05/13/2014 GRIFFIN DCAH S [employer] MENDER Ot V87.41 05/16/2014 MOYA DCAH S [employer] M[employer]ER Ot 174.9 05/16/2014 MOYA MUMTAZ S [employer] MENDER Ot 196.3 05/16/2014 GRIFFIN MUMTAZ S [employer] MENDER Ot V15.3 05/16/2014 GRIFFIN MUMTAZ S [employer] MENDER Ot V16.41 05/16/2014 MOYA MUMTAZ S [employer] MENDER Ot V45.71 05/16/2014 MOYAMUMTAZ Tenorio S [employer] MENDER Ot V58.69 05/16/2014 GRIFFIN MUMTAZ S [employer] MENDER Ot V86.0 05/16/2014 GRIFFIN MUMTAZ S [employer] MENDER Ot V87.41 05/16/2014 ADRI GREEN, MADELINE J Ot 174.9 05/16/2014 ADRI GREEN, MADELINE Jackson Ot 244.9 05/16/2014 ADRI GREEN, MADELINE Jackson Ot 397.0 05/16/2014 ADRI GREEN, MADELINE J Ot 401.9 05/16/2014 ADRI GREEN, MADELINE J Ot 424.0 05/16/2014 ADRI GREEN, MADELINE Jackson Ot 782.3 06/03/2014 MUMTAZ MOYA S [employer] MENDER Ot 174.9 06/13/2014 DELCID MALWARE ANALYST, FRANCISCO D 717.3 OTHER AND UNSPECIFIED DERANGEMENT OF MEDIAL MENISCUS 06/13/2014 PATRICE BELTRAN APRNA S 717.3 OTHER AND UNSPECIFIED DERANGEMENT OF MEDIAL MENISCUS 06/13/2014 LUPILLO DUARTE, MARCOS A 717.3 OTHER AND UNSPECIFIED DERANGEMENT OF MEDIAL MENISCUS 06/13/2014 PATRICE BELTRAN APRNA S 717.3 OTHER AND UNSPECIFIED DERANGEMENT OF MEDIAL MENISCUS 08/07/2014 FILI, BOBAN N Ot 174.9 08/07/2014 FILI, BOBAN N Ot 196.3 08/07/2014 FILI, BOBAN N Ot V15.3 08/07/2014 FILI, BOBAN N Ot V45.71 08/07/2014 FILI, BOBAN N Ot V58.69 08/07/2014 FILI, BOBAN N Ot V86.0 08/07/2014 FILI, BOBAN N Ot V87.41 08/26/2014 PATRICE BELTRAN APRNA S 466.0 BRONCHITIS, ACUTE 08/26/2014 LUPILLO DUARTE MARCOS A 466.0 BRONCHITIS, ACUTE 08/26/2014 THOMAS BELTRAN APRNNDA S 466.0 BRONCHITIS, ACUTE 10/15/2014 LUPILLO DUARTE MARCOS A 599.0 URINARY TRACT INFECTION 10/15/2014 PATRICE BELTRAN APRNA S 599.0 URINARY TRACT INFECTION 10/16/2014 FILI, BOBAN N Ot 174.9 10/16/2014 FILI, BOBAN N Ot 196.3 10/16/2014 FILI, BOBAN N Ot V15.3 10/16/2014 FILI, BOBAN N Ot V45.71 10/16/2014 FILI, BOBAN N Ot V58.69 10/16/2014 FILI, BOBAN N Ot V86.0 10/16/2014 FILI, BOBAN N Ot V87.41 11/15/2014 FILI, BOBAN N Ot 174.9 11/15/2014 FILI, BOBAN N Ot 196.3 11/15/2014 FILI, BOBAN N Ot V15.3 11/15/2014 FILI, BOBAN N Ot V45.71 11/15/2014 FILI, BOBAN N Ot V58.69 11/15/2014 KAREEM PENN N Ot V86.0 11/15/2014 KAREEM PENN N Ot V87.41 11/28/2014 MOYAMUMTAZ Tenorio S [employer]ER Ot 611.72 11/28/2014 MOYAMUMTAZ Tenorio S [employer] M[employer]ER Ot 793.11 11/28/2014 MUMTAZ MOYA S [employer] MENDER Ot V10.3 11/28/2014 MOYAMUMTAZ S [employer] MENDER Ot V45.71 11/28/2014 MOYAMUMTAZ Tenorio S [employer] M[employer]ER Ot V84.01 12/04/2014 MOYAMUMTAZ S [employer] MENDER Ot 174.9 12/04/2014 MOYAMUMTAZ S [employer] MENDER Ot 174.9 12/09/2014 MOYAMUMTAZ S [employer] MENDER Ot 174.9 12/09/2014 MOYAMUMTAZ S [employer] MENDER Ot 196.3 12/09/2014 MOYAMUMTAZ Tenorio S [employer] MENDER Ot 250.00 12/09/2014 MOYAMUMTAZ Tenorio S [employer] MENDER Ot 305.1 12/09/2014 MOYAMUMTAZ Tenorio S [employer] MENDER Ot V15.3 12/09/2014 MOYAMUMTAZ Tenorio S [employer] MENDER Ot V45.71 12/09/2014 MOYAMUMTAZ Tenorio S [employer] MENDER Ot V58.67 12/09/2014 MOYAMUMTAZ Tenorio S [employer] MENDER Ot V58.69 12/09/2014 MOYAMUMTAZ Tenorio S [employer] MENDER Ot V86.0 12/09/2014 MOYAMUMTAZ Tenorio S [employer] MENDER Ot V87.41 12/21/2014 MOYAMUMTAZ Tenorio S [employer] MENDER Ot 174.9 12/21/2014 MOYAMUMTAZ Tenorio S [employer] MENDER Ot 611.72 12/21/2014 MOYAMUMTAZ Tenorio S [employer] MENDER Ot 793.11 12/21/2014 MOYAMUMTAZ Tenorio S [employer] MENDER Ot V10.3 12/21/2014 MOYAMUMTAZ S [employer] MENDER Ot V45.71 12/21/2014 MOYAMUMTAZ Tenorio S [employer] MENDER Ot V84.01 03/06/2015 KAREEM PENN N Ot 174.9 03/06/2015 KAREEM PENN N Ot 196.3 03/06/2015 KAREEM PENN N Ot V15.3 03/06/2015 FILIKAREEM LANGE N Ot V45.71 03/06/2015 KAREEM PENN N Ot V58.69 03/06/2015 KAREEM PENN N Ot V86.0 03/06/2015 KAREEM PENN N Ot V87.41 03/06/2015 MOYAMUMTAZ Tenorio [employer] M[employer]ER Ot 174.9 03/06/2015 MOYAMUMTAZ Tenorio S [employer] MENDER Ot 196.3 03/06/2015 MOYAMUMTAZ Tenorio S [employer] MENDER Ot 250.00 03/06/2015 MOYAUMMTAZ S [employer] MENDER Ot 305.1 03/06/2015 MOYAMUMTAZ Tenorio S [employer] Ot V15.3 03/06/2015 MOYAMUMTAZ S [employer] Ot V45.71 03/06/2015 MOYAMUMTAZ S [employer] Ot V58.67 03/06/2015 MOYAMUMTAZ S [employer] Ot V58.69 03/06/2015 MOYAMUMTAZ Tenorio S [employer] Ot V86.0 03/06/2015 MOYAMUMTAZ Tenorio S [employer] Ot V87.41 03/06/2015 MOYAMUMTAZ Tenorio S [employer] Ot 611.72 03/06/2015 MOYAMUMTAZ Tenorio S [employer] Ot 793.11 03/06/2015 MOYAMUMTAZ Tenorio S [employer] Ot V10.3 03/06/2015 MOYAMUMTAZ Tenorio S [employer] Ot V45.71 03/06/2015 MOYAMUMTAZ Tenorio S [employer] Ot V84.01 03/06/2015 MOYAMUMTAZ Tenorio S [employer] Ot 174.9 03/06/2015 MOYAMUMTAZ Tenorio S [employer] Ot 196.3 03/06/2015 MOYAMUMTAZ Tenorio S [employer] Ot 250.00 03/06/2015 MOYAMUMTAZ S [employer] Ot 305.1 03/06/2015 MOYAMUMTAZ Tenorio S [employer] Ot 733.90 03/06/2015 MOYAMUMTAZ S [employer] Ot V15.3 03/06/2015 MOYAMUMTAZ S [employer] Ot V45.71 03/06/2015 MOYAMUMTAZ S [employer] Ot V58.67 03/06/2015 MOYAMUMTAZ S [employer] Ot V58.69 03/06/2015 MOYAMUMTAZ S [employer] Ot V86.0 03/06/2015 MOYA, HILAH S [employer] Ot V87.41 03/06/2015 MOYAMUMTAZ Tenorio S [employer] Ot 174.9 03/06/2015 MOYAMUMTAZ Tenorio S [employer] Ot 196.3 03/06/2015 MUMTAZ MOYA S [employer] Ot 250.00 03/06/2015 MUMTAZ MOYA S [employer] Ot 305.1 03/06/2015 MOYAMUMTAZ Tenorio S [employer] Ot 733.90 03/06/2015 MOYAMUMTAZ Tenorio S [employer] Ot V15.3 03/06/2015 MOYAMUMTAZ S [employer] Ot V45.71 03/06/2015 MOYAMUMTAZ S [employer] Ot V58.67 03/06/2015 MOYAMUMTAZ S [employer] Ot V58.69 03/06/2015 MUMTAZ MOYA S [employer] Ot V86.0 03/06/2015 MOYAMUMTAZ Tenorio S [employer] Ot V87.41 04/09/2015 MUMTAZ MOYA S [employer] Ot 174.9 04/09/2015 MOYAMUMTAZ Tenorio S [employer] Ot 256.2 04/09/2015 MOYAMUMTAZ Tenorio S [employer] Ot 733.90 04/09/2015 MOYAMUMTAZ Tenorio [employer] Ot 793.11 04/09/2015 MUMTAZ MOYA S [employer] Ot V84.01 05/26/2015 ENDER PAZ Ot E10.9 05/26/2015 ENDER PAZ Ot E66.8 05/26/2015 ENDER PAZ Ot I10 05/26/2015 ENDER PAZ Ot R60.9 06/02/2015 MUMTAZ MOYA [employer] Ot 174.9 06/02/2015 MOYAMUMTAZ Tenorio S [employer] Ot 256.2 06/02/2015 MOYAMUMTAZ Tenorio S [employer] Ot 733.90 06/02/2015 MOYAMUMTAZ Tenorio S [employer] Ot 793.11 06/02/2015 MOYAMUMTAZ Tenorio S [employer] Ot V84.01 06/26/2015 JASPER GREEN, MARK [place] Ot M06.9 08/10/2015 KAREEM PENN Ot C50.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 08/10/2015 KAREEM PENN Ot C50.919 08/10/2015 KAREEM PENN Ot C77.3 SEC AND UNSP MALIG NEOPLASM OF AXILLA AN 08/10/2015 KAREEM PENN Ot M85.80 OTH DISRD OF BONE DENSITY AND STRUCTURE, 08/10/2015 KAREEM PENN Ot Z17.0 ESTROGEN RECEPTOR POSITIVE STATUS [ER+] 08/10/2015 KAREEM PENN Ot Z79.811 [facility] (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 OF AROMATASE INH 08/10/2015 KAREEM PENN Ot Z90.11 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 08/10/2015 KAREEM PENN Ot Z92.3 PERSONAL HISTORY OF IRRADIATION 08/12/2015 KAREEM PNEN Ot 174.9 08/12/2015 KAREEM PENN Ot 196.3 08/12/2015 KAREEM PENN Ot V15.3 08/12/2015 KAREEM PENN Ot V45.71 08/12/2015 KAREEM PENN Ot V58.69 08/12/2015 KAREEM PENN Ot V86.0 08/12/2015 KAREEM PENN Ot V87.41 08/12/2015 MUMTAZ MOYA [employer] Ot 174.9 08/12/2015 MUMTAZ MOYA [employer] Ot 196.3 08/12/2015 MUMTAZ MOYA [employer] Ot 250.00 08/12/2015 MUMTAZ MOYA [employer] Ot 305.1 08/12/2015 MUMTAZ MOYA [employer] Ot V15.3 08/12/2015 MUMTAZ MOYA [employer] Ot V45.71 08/12/2015 MUMTAZ MOYA [employer] Ot V58.67 08/12/2015 MUMTAZ MOYA [employer] Ot V58.69 08/12/2015 MUMTAZ MOYA [employer] Ot V86.0 08/12/2015 MUMTAZ MOYA [employer] Ot V87.41 08/12/2015 MUMTAZ MOYA [employer] Ot 611.72 08/12/2015 MUMTAZ MOYA [employer] Ot 793.11 08/12/2015 MUMTAZ MOYA [employer] Ot V10.3 08/12/2015 MUMTAZ MOYA [employer] Ot V45.71 08/12/2015 MUMTAZ MOYA [employer] Ot V84.01 08/12/2015 MUMTAZ MOYA S [employer] Ot 174.9 08/12/2015 MUMTAZ MOYA S [employer] Ot 196.3 08/12/2015 MUMTAZ MOYA [employer] Ot 250.00 08/12/2015 MUMTAZ MOYA S [employer] Ot 305.1 08/12/2015 MUMTAZ MOYA S [employer] Ot 733.90 08/12/2015 MUMTAZ MOYA S [employer] Ot V15.3 08/12/2015 MUMTAZ MOYA S [employer] Ot V45.71 08/12/2015 MUMTAZ MOYA S [employer] Ot V58.67 08/12/2015 MUMTAZ MOYA S [employer] Ot V58.69 08/12/2015 MUMTAZ MOYA S [employer] Ot V86.0 08/12/2015 MUMTAZ MOYA S [employer] Ot V87.41 08/12/2015 MUMTAZ MOYA S KNIT GOODS MENDER Ot 174.9 08/12/2015 MUMTAZ MOYA KNIT GOODS MENDER Ot 256.2 08/12/2015 MUMTAZ MOYA KNIT GOODS MENDER Ot 733.90 08/12/2015 MUMTAZ MOYA KNIT GOODS MENDER Ot 793.11 08/12/2015 MUMTAZ MOYA KNIT GOODS MENDER Ot V84.01 08/12/2015 ENDER PAZ Ot E10.9 08/12/2015 ENDER PAZ Ot E66.8 08/12/2015 ENDER PAZ Ot I10 08/12/2015 ENDER PAZ Ot R60.9 08/12/2015 MARK HUTCHINSON MD Ot M06.9 08/12/2015 KAREEM PENN Ot C50.919 08/25/2015 MOYAMUMTAZ Tenorio S KNIT GOODS MENDER Ot C50.911 08/25/2015 MOYAMUMTAZ Tenorio S KNIT GOODS MENDER Ot C77.3 08/25/2015 MOYAMUMTAZ S KNIT GOODS MENDER Ot M85.80 08/25/2015 MOYAMUMTAZ Tenorio S KNIT GOODS MENDER Ot Z15.01 08/25/2015 MUMTAZ MOYA KNIT GOODS MENDER Ot Z17.0 08/25/2015 MUMTAZ MOYA KNIT GOODS MENDER Ot Z79.811 08/25/2015 MUMTAZ MOYA KNIT GOODS MENDER Ot Z90.11 08/25/2015 MUMTAZ MOYA KNIT GOODS MENDER Ot Z92.3 09/10/2015 MUMTAZ MOYA KNIT GOODS MENDER Ot C50.911 09/10/2015 MUMTAZ MOYA KNIT GOODS MENDER Ot C77.3 09/10/2015 MUMTAZ MOYA KNIT GOODS MENDER Ot M85.80 09/10/2015 MUMTAZ MOYA KNIT GOODS MENDER Ot Z15.01 09/10/2015 MUMTAZ MOYA KNIT GOODS MENDER Ot Z17.0 09/10/2015 MUMTAZ MOYA KNIT GOODS MENDER Ot Z79.811 09/10/2015 MUMTAZ MOYA KNIT GOODS MENDER Ot Z90.11 09/10/2015 MUMTAZ MOYA KNIT GOODS MENDER Ot Z92.3 09/22/2015 Ot 611.72 09/22/2015 Ot 793.81 09/22/2015 Ot 174.9 09/22/2015 Ot V58.69 09/22/2015 Ot 174.4 09/22/2015 Ot 196.3 09/22/2015 Ot V58.11 09/22/2015 Ot V58.69 09/22/2015 Ot V86.0 09/22/2015 Ot 174.9 09/22/2015 Ot 276.69 09/22/2015 Ot 397.0 09/22/2015 Ot 424.0 09/22/2015 Ot V58.69 09/22/2015 Ot V58.83 09/22/2015 Ot V87.41 09/22/2015 Ot 174.9 09/22/2015 Ot V58.69 09/22/2015 Ot V87.41 09/22/2015 Ot V58.69 09/22/2015 Ot V58.83 09/22/2015 Ot 428.0 09/22/2015 KAREEM PENN Ot 996.74 09/22/2015 KEY JOSE KNIT GOODS MENDER Ot 729.5 09/22/2015 EUGENIO BELTRAN KNIT GOODS MENDER Ot 729.5 09/22/2015 DEVIN, EUGENIO KNIT GOODS MENDER Ot 729.81 09/22/2015 MUMTAZ MOYA KNIT GOODS MENDER Ot 174.4 09/22/2015 MOYAMUMTAZ Tenorio S KNIT GOODS MENDER Ot 196.3 09/22/2015 MOYAMUMTAZ Tenorio S KNIT GOODS MENDER Ot 250.00 09/22/2015 MUMTAZ MOYA S KNIT GOODS MENDER Ot 782.3 09/22/2015 MOYAMUMTAZ Tenorio S KNIT GOODS MENDER Ot V45.71 09/22/2015 MOYADC S KNIT GOODS MENDER Ot V58.67 09/22/2015 MOYA, HIL S KNIT GOODS MENDER Ot V58.69 09/22/2015 DC MOYA S KNIT GOODS MENDER Ot V86.0 09/22/2015 MOYA, [place] S KNIT GOODS MENDER Ot 397.0 09/22/2015 MOYAMUMTAZ Tenorio S KNIT GOODS MENDER Ot 424.0 09/22/2015 MOYA, HIL S KNIT GOODS MENDER Ot 782.3 09/22/2015 MOYAMUMTAZ Tenorio S KNIT GOODS MENDER Ot V58.69 09/22/2015 MOYAMUMTAZ Tenorio S KNIT GOODS MENDER Ot V58.83 09/22/2015 MOYA, HIL S KNIT GOODS MENDER Ot V87.41 09/22/2015 MOYA, HIL S KNIT GOODS MENDER Ot 174.4 09/22/2015 MOYAMUMTAZ Tenorio S KNIT GOODS MENDER Ot 196.3 09/22/2015 MOYAMUMTAZ Tenorio S KNIT GOODS MENDER Ot 250.00 09/22/2015 MOYA, HIL S KNIT GOODS MENDER Ot 457.1 09/22/2015 MOYAMUMTAZ Tenorio S KNIT GOODS MENDER Ot 782.3 09/22/2015 MOYAMUMTAZ Tenorio S KNIT GOODS MENDER Ot V45.71 09/22/2015 MOYA, HIL S KNIT GOODS MENDER Ot V58.67 09/22/2015 MOYAMUMTAZ Tenorio S KNIT GOODS MENDER Ot V58.69 09/22/2015 MOYA, [place] S KNIT GOODS MENDER Ot V86.0 09/22/2015 MOYA, HIL S KNIT GOODS MENDER Ot 174.4 09/22/2015 MOYA, HIL S KNIT GOODS MENDER Ot 196.3 09/22/2015 MOYAMUMTAZ Tenorio S KNIT GOODS MENDER Ot 250.00 09/22/2015 MOYADC S KNIT GOODS MENDER Ot V45.71 09/22/2015 MOYADC S KNIT GOODS MENDER Ot V58.67 09/22/2015 MUMTAZ MOYA KNIT GOODS MENDER Ot V58.69 09/22/2015 MOYAMUMTAZ Tenorio S KNIT GOODS MENDER Ot V86.0 09/22/2015 MOYAMUMTAZ Tenorio S KNIT GOODS MENDER Ot 174.9 09/22/2015 MOYAMUMTAZ Tenorio S KNIT GOODS MENDER Ot 397.0 09/22/2015 MOYAMUMTAZ Tenorio S KNIT GOODS MENDER Ot 424.0 09/22/2015 MOYAMUMTAZ Tenorio S KNIT GOODS MENDER Ot 733.90 09/22/2015 MOYAMUMTAZ Tenorio S KNIT GOODS MENDER Ot V58.69 09/22/2015 MOYAMUMTAZ Tenorio S KNIT GOODS MENDER Ot 174.9 09/22/2015 MOYAMUMTAZ S KNIT GOODS MENDER Ot 250.00 09/22/2015 MOYAMUMTAZ Tenorio S KNIT GOODS MENDER Ot 397.0 09/22/2015 MOYAMUMTAZ Tenorio S KNIT GOODS MENDER Ot 424.0 09/22/2015 MOYAMUMTAZ Tenorio S KNIT GOODS MENDER Ot 733.90 09/22/2015 MOYAMUMTAZ Tenorio S KNIT GOODS MENDER Ot V45.71 09/22/2015 MOYAMUMTAZ Tenorio S KNIT GOODS MENDER Ot V58.67 09/22/2015 MOYAMUMTAZ Tenorio S KNIT GOODS MENDER Ot V58.69 09/22/2015 MOYAMUMTAZ Tenorio S KNIT GOODS MENDER Ot V86.0 09/22/2015 MOYAMUMTAZ Tenorio S KNIT GOODS MENDER Ot 174.9 09/22/2015 MOYAMUMTAZ Tenorio S KNIT GOODS MENDER Ot 196.3 09/22/2015 MOYAMUMTAZ Tenorio S KNIT GOODS MENDER Ot 244.9 09/22/2015 MOYAMUMTAZ Tenorio S KNIT GOODS MENDER Ot 250.00 09/22/2015 MOYAMUMTAZ Tenorio S KNIT GOODS MENDER Ot V45.71 09/22/2015 MOYAMUMTAZ Tenorio S KNIT GOODS MENDER Ot V58.67 09/22/2015 MOYAMUMTAZ Tenorio S KNIT GOODS MENDER Ot V58.69 09/22/2015 MOYAMUMTAZ Tenorio S KNIT GOODS MENDER Ot V86.0 09/22/2015 MOYAMUMTAZ S KNIT GOODS MENDER Ot V87.41 09/22/2015 MOYAMUMTAZ S KNIT GOODS MENDER Ot 174.9 09/22/2015 MOYAMUMTAZ S KNIT GOODS MENDER Ot 196.3 09/22/2015 MOYA MUMTAZ S KNIT GOODS MENDER Ot 244.9 09/22/2015 MOYAMUMTAZ S KNIT GOODS MENDER Ot 250.00 09/22/2015 MOYAMUMTAZ Tenorio S KNIT GOODS MENDER Ot V45.71 09/22/2015 MOYAMUMTAZ Tenorio S KNIT GOODS MENDER Ot V58.67 09/22/2015 MOYAMUMTAZ Tenorio S KNIT GOODS MENDER Ot V58.69 09/22/2015 MUMTAZ MOYA S KNIT GOODS MENDER Ot V86.0 09/22/2015 MOYA, HIL S KNIT GOODS MENDER Ot V87.41 09/22/2015 MOYA, [place] S KNIT GOODS MENDER Ot 174.9 09/22/2015 MOYA, [place] S KNIT GOODS MENDER Ot 196.3 09/22/2015 MOYA, [place] S KNIT GOODS MENDER Ot V15.3 09/22/2015 MOYA, [place] S KNIT GOODS MENDER Ot V45.71 09/22/2015 MOYA, [place] S KNIT GOODS MENDER Ot V58.69 09/22/2015 MOYA, HIL S KNIT GOODS MENDER Ot V86.0 09/22/2015 MOYADC S KNIT GOODS MENDER Ot V87.41 09/22/2015 MOYA, [place] S KNIT GOODS MENDER Ot 174.9 09/22/2015 MOYA, [place] S KNIT GOODS MENDER Ot 397.0 09/22/2015 MOYA, [place] S KNIT GOODS MENDER Ot 424.0 09/22/2015 MOYA, [place] S KNIT GOODS MENDER Ot V58.69 09/22/2015 MOYA, HIL S KNIT GOODS MENDER Ot V58.83 09/22/2015 MOYAMUMTAZ Tenorio S KNIT GOODS MENDER Ot V87.41 09/22/2015 MOYA, HIL S KNIT GOODS MENDER Ot 174.9 09/22/2015 MOYA, [place] S KNIT GOODS MENDER Ot 196.3 09/22/2015 MOYA, [place] S KNIT GOODS MENDER Ot V15.3 09/22/2015 MOYA, [place] S KNIT GOODS MENDER Ot V16.41 09/22/2015 MOYA, [place] S KNIT GOODS MENDER Ot V45.71 09/22/2015 MOYA, [place] S KNIT GOODS MENDER Ot V58.69 09/22/2015 MOYA, HIL S KNIT GOODS MENDER Ot V86.0 09/22/2015 MOYAMUMTAZ S KNIT GOODS MENDER Ot V87.41 09/22/2015 MOYADC S KNIT GOODS MENDER Ot 174.9 09/22/2015 MOYA [place] S KNIT GOODS MENDER Ot 793.11 09/22/2015 Ot 174.4 09/22/2015 Ot 196.3 09/22/2015 Ot V58.11 09/22/2015 Ot V58.69 09/22/2015 Ot V86.0 09/22/2015 MUMTAZ MOYA KNIT GOODS MENDER Ot 174.9 09/22/2015 MUMTAZ MOYA S KNIT GOODS MENDER Ot 196.3 09/22/2015 MUMTAZ MOYA S KNIT GOODS MENDER Ot V15.3 09/22/2015 MUMTAZ MOYA S KNIT GOODS MENDER Ot V16.41 09/22/2015 MUMTAZ MOYA S KNIT GOODS MENDER Ot V45.71 09/22/2015 MOYAMUMTAZ Tenorio S KNIT GOODS MENDER Ot V58.69 09/22/2015 MUMTAZ MOYA S KNIT GOODS MENDER Ot V86.0 09/22/2015 MUMTAZ MOYA S KNIT GOODS MENDER Ot V87.41 09/22/2015 MUMTAZ MOYA S KNIT GOODS MENDER Ot 174.9 09/22/2015 MUMTAZ MOYA S KNIT GOODS MENDER Ot 196.3 09/22/2015 MUMTAZ MOYA S KNIT GOODS MENDER Ot V15.3 09/22/2015 MUMTAZ MOYA S KNIT GOODS MENDER Ot V16.41 09/22/2015 MUMTAZ MOYA S KNIT GOODS MENDER Ot V45.71 09/22/2015 MUMTAZ MOYA S KNIT GOODS MENDER Ot V58.69 09/22/2015 MUMTAZ MOYA S KNIT GOODS MENDER Ot V86.0 09/22/2015 MUMTAZ MOYA S KNIT GOODS MENDER Ot V87.41 09/22/2015 MUMTAZ MOYA S KNIT GOODS MENDER Ot 174.9 09/22/2015 MUMTAZ MOYA S KNIT GOODS MENDER Ot 174.9 09/22/2015 MUMTAZ MOYA S KNIT GOODS MENDER Ot 793.11 09/22/2015 ADRI GREEN, MADELINE Jackson Ot 174.9 09/22/2015 ADRI GREEN, MADELINE Jackson Ot 244.9 09/22/2015 ADRI GREEN, MADELINE Jackson Ot 397.0 09/22/2015 ADRI GREEN, MADELINE Jackson Ot 401.9 09/22/2015 ADRI GREEN, MADELINE Jackson Ot 424.0 09/22/2015 ADRI GREEN, MADELINE Jackson Ot 782.3 09/22/2015 GRIFFINMUMTAZ S KNIT GOODS MENDER Ot 174.9 09/22/2015 KAREEM PNEN N Ot 174.9 09/22/2015 KAREEM PENN N Ot 196.3 09/22/2015 KAREEM PENN N Ot V15.3 09/22/2015 KAREEM PENN N Ot V45.71 09/22/2015 KAREEM PENN N Ot V58.69 09/22/2015 KAREEM PENN N Ot V86.0 09/22/2015 KAREEM PENN N Ot V87.41 09/22/2015 MOYAMUMTAZ Tenorio S KNIT GOODS MENDER Ot 174.9 09/22/2015 MOYAMUMTZA S KNIT GOODS MENDER Ot 196.3 09/22/2015 GRIFFIN MUMTAZ S KNIT GOODS MENDER Ot 250.00 09/22/2015 GRIFFIN MUMTAZ S KNIT GOODS MENDER Ot 305.1 09/22/2015 GRIFFIN MUMTAZ S KNIT GOODS MENDER Ot V15.3 09/22/2015 GRIFFIN MUMTAZ S KNIT GOODS MENDER Ot V45.71 09/22/2015 GRIFFIN MUMTAZ S KNIT GOODS MENDER Ot V58.67 09/22/2015 GRIFFIN MUMTAZ S KNIT GOODS MENDER Ot V58.69 09/22/2015 GRIFFIN MUMTAZ S KNIT GOODS MENDER Ot V86.0 09/22/2015 GRIFFIN MUMTAZ S KNIT GOODS MENDER Ot V87.41 09/22/2015 GRIFFIN MUMTAZ S KNIT GOODS MENDER Ot 611.72 09/22/2015 GRIFFIN MUMTAZ S KNIT GOODS MENDER Ot 793.11 09/22/2015 GRIFFIN MUMTAZ S KNIT GOODS MENDER Ot V10.3 09/22/2015 GRIFFIN MUMTAZ S KNIT GOODS MENDER Ot V45.71 09/22/2015 GRIFFIN MUMTAZ S KNIT GOODS MENDER Ot V84.01 09/22/2015 GRIFFIN MUMTAZ S KNIT GOODS MENDER Ot 174.9 09/22/2015 GRIFFIN MUMTAZ S KNIT GOODS MENDER Ot 196.3 09/22/2015 GRIFFIN MUMTAZ S KNIT GOODS MENDER Ot 250.00 09/22/2015 GRIFFIN MUMTAZ S KNIT GOODS MENDER Ot 305.1 09/22/2015 GRIFFIN MUMTAZ S KNIT GOODS MENDER Ot 733.90 09/22/2015 GRIFFIN MUMTAZ S KNIT GOODS MENDER Ot V15.3 09/22/2015 GRIFFIN MUMTAZ S KNIT GOODS MENDER Ot V45.71 09/22/2015 MUMTAZ MOYA KNIT GOODS MENDER Ot V58.67 09/22/2015 MUMTAZ MOYA KNIT GOODS MENDER Ot V58.69 09/22/2015 MOYAMUMTAZ Tenorio S KNIT GOODS MENDER Ot V86.0 09/22/2015 MUMTAZ MOYA S KNIT GOODS MENDER Ot V87.41 09/22/2015 MOYAMUMTAZ Tenorio KNIT GOODS MENDER Ot 174.9 09/22/2015 MOYAMUMTAZ S KNIT GOODS MENDER Ot 256.2 09/22/2015 MOYAMUMTAZ Tenorio S KNIT GOODS MENDER Ot 733.90 09/22/2015 MOYAMUMTAZ Tenorio S KNIT GOODS MENDER Ot 793.11 09/22/2015 GRIFFINMUMTAZ S KNIT GOODS MENDER Ot V84.01 09/22/2015 ENDER PAZ Ot E10.9 09/22/2015 ENDER PAZ Ot E66.8 09/22/2015 ENDER PAZ Ot I10 09/22/2015 ENDER PAZ Ot R60.9 09/22/2015 JASPER GREEN, MARK [place] Ot M06.9 09/22/2015 MOYAMUMTAZ Tenorio KNIT GOODS MENDER Ot C50.911 09/22/2015 MOYAMUMTAZ S KNIT GOODS MENDER Ot C77.3 09/22/2015 MOYAMUMTAZ Tenorio S KNIT GOODS MENDER Ot M85.80 09/22/2015 MOYAMUMTAZ Tenorio S KNIT GOODS MENDER Ot Z15.01 09/22/2015 MOYAMUMTAZ S KNIT GOODS MENDER Ot Z17.0 09/22/2015 MOYAMUMTAZ Tenorio S KNIT GOODS MENDER Ot Z79.811 09/22/2015 MOYAMUMTAZ Tenorio S KNIT GOODS MENDER Ot Z90.11 09/22/2015 MOYAMUMTAZ Tenorio S KNIT GOODS MENDER Ot Z92.3 09/22/2015 KAREEM PENN Ot C50.919 10/03/2015 MOYAMUMTAZ Tenorio S KNIT GOODS MENDER Ot 611.72 10/03/2015 MOYAMUMTAZ Tenorio S KNIT GOODS MENDER Ot 793.11 10/03/2015 MOYAMUMTAZ S KNIT GOODS MENDER Ot V10.3 10/03/2015 GRIFFINMUMTAZ S KNIT GOODS MENDER Ot V45.71 10/03/2015 MOYAMUMTAZ Tenorio S KNIT GOODS MENDER Ot V84.01 10/03/2015 MUMTAZ MOYAP Ot C50.511 10/20/2015 MUMTAZ MOYAP Ot 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 11/07/2015 MUMTAZ MOYA KNIT GOODS MENDER Ot 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 11/07/2015 MUMTAZ MOYAP Ot C77.3 SEC AND UNSP MALIG NEOPLASM OF AXILLA AN 11/07/2015 MUMTAZ MOYA KNIT GOODS MENDER Ot M85.80 OTH DISRD OF BONE DENSITY AND STRUCTURE, 11/07/2015 MUMTAZ MOYA KNIT GOODS MENDER Ot Z17.0 ESTROGEN RECEPTOR POSITIVE STATUS [ER+] 11/07/2015 MOYAMUMTAZ Tenorio KNIT GOODS MENDER Ot 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 11/07/2015 MOYAMUMTAZ Tenorio KNIT GOODS MENDER Ot Z90.11 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 11/07/2015 MOYAMUMTAZ Tenorio KNIT GOODS MENDER Ot Z92.3 PERSONAL HISTORY OF IRRADIATION 11/27/2015 MUMTAZ MOYAP Ot 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 11/27/2015 MUMTAZ MOYAP Ot C77.3 SEC AND UNSP MALIG NEOPLASM OF AXILLA AN 11/27/2015 MUMTAZ MOYAP Ot M85.80 OTH DISRD OF BONE DENSITY AND STRUCTURE, 11/27/2015 MUMTAZ MOYAP Ot Z17.0 ESTROGEN RECEPTOR POSITIVE STATUS [ER+] 11/27/2015 MOYAMUMTAZ Tenorio KNIT GOODS MENDER Ot 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 11/27/2015 MOYAMUMTAZ Tenorio KNIT GOODS MENDER Ot Z90.11 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 11/27/2015 GRIFFINMUMTAZ KNIT GOODS MENDER Ot Z92.3 PERSONAL HISTORY OF IRRADIATION 12/04/2015 Ot 611.72 LUMP OR MASS IN BREAST 12/04/2015 Ot 793.81 MAMMOGRAPHIC MICROCLACIFICATION 12/04/2015 Ot 174.9 MALIGN NEOPL BREAST NOS 12/04/2015 Ot V58.69 OTH MED,LT, CURRENT USE 12/04/2015 Ot 174.4 MAL PAWEL BREAST UP-OUTER 12/04/2015 Ot 196.3 MAL PAWEL LYMPH -AXILLA/ARM 12/04/2015 Ot V58.11 ENCOUNTER FOR ANTINEOPLASTIC CHEMOTHERAP 12/04/2015 Ot V58.69 OTH MED,LT, CURRENT USE 12/04/2015 Ot V86.0 ESTROGEN RECEPTOR POSITIVE STATUS [ER+] 12/04/2015 Ot 174.9 MALIGN NEOPL BREAST NOS 12/04/2015 Ot 276.69 OTHER FLUID OVERLOAD 12/04/2015 Ot 397.0 TRICUSPID VALVE DISEASE 12/04/2015 Ot 424.0 MITRAL VALVE DISORDER 12/04/2015 Ot V58.69 OTH MED,LT, CURRENT USE 12/04/2015 Ot V58.83 ENCOUNTER FOR THERAPEUTIC DRUG MONITORIN 12/04/2015 Ot V87.41 PERSONAL HISTORY OF ANTINEOPLASTIC CHEMO 12/04/2015 Ot 174.9 MALIGN NEOPL BREAST NOS 12/04/2015 Ot V58.69 OTH MED,LT, CURRENT USE 12/04/2015 Ot V87.41 PERSONAL HISTORY OF ANTINEOPLASTIC CHEMO 12/04/2015 Ot V58.69 OTH MED,LT, CURRENT USE 12/04/2015 Ot V58.83 ENCOUNTER FOR THERAPEUTIC DRUG MONITORIN 12/04/2015 Ot 428.0 CONGESTIVE HEART FAILURE NOS 12/04/2015 FILI KAREEM N Ot 996.74 OT COMPL DUE TO [facility] VASCULAR DEVICE,IMP 12/04/2015 KEY JOSE KNIT GOODS MENDER Ot 729.5 PAIN IN LIMB 12/04/2015 DEVINEUGENIO FRIED KNIT GOODS MENDER Ot 729.5 PAIN IN LIMB 12/04/2015 EUGENIO BELTRAN KNIT GOODS MENDER Ot 729.81 SWELLING OF LIMB 12/04/2015 MUMTAZ MOYA KNIT GOODS MENDER Ot 174.4 MAL PAWEL BREAST UP-OUTER 12/04/2015 MUMTAZ MOYA KNIT GOODS MENDER Ot 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 12/04/2015 MUMTAZ MOYA KNIT GOODS MENDER Ot 250.00 DIAB NESTOR WO COMPL, TYPE II OR UNSPEC TY 12/04/2015 MUMTAZ MOYA KNIT GOODS MENDER Ot 782.3 EDEMA 12/04/2015 MUMTAZ MOYA KNIT GOODS MENDER Ot V45.71 ACQUIRED ABSENCE OF BREAST AND NIPPLE 12/04/2015 MUMTAZ MOYA KNIT GOODS MENDER Ot V58.67 LONG-TERM (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 OF INSULIN 12/04/2015 DC MOYARICHARD Coby KNIT GOODS MENDER Ot V58.69 OTH MED,LT,CURRENT USE 12/04/2015 MUMTAZ MOYA KNIT GOODS MENDER Ot V86.0 ESTROGEN RECEPTOR POSITIVE STATUS [ER+] 12/04/2015 MUMTAZ MOYA KNIT GOODS MENDER Ot 397.0 TRICUSPID VALVE DISEASE 12/04/2015 MUMTAZ MOYA KNIT GOODS MENDER Ot 424.0 MITRAL VALVE DISORDER 12/04/2015 MUMTAZ MOYA KNIT GOODS MENDER Ot 782.3 EDEMA 12/04/2015 MUMTAZ MOYA KNIT GOODS MENDER Ot V58.69 OTH MED,LT,CURRENT USE 12/04/2015 MUMTAZ MOYA KNIT GOODS MENDER Ot V58.83 ENCOUNTER FOR THERAPEUTIC DRUG MONITORIN 12/04/2015 MUMTAZ MOYA KNIT GOODS MENDER Ot V87.41 PERSONAL HISTORY OF ANTINEOPLASTIC CHEMO 12/04/2015 MUMTAZ MOYA KNIT GOODS MENDER Ot 174.4 MAL PAWEL BREAST UP-OUTER 12/04/2015 MUMTAZ MOYA KNIT GOODS MENDER Ot 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 12/04/2015 MUMTAZ MOYA KNIT GOODS MENDER Ot 250.00 DIAB NESTOR WO COMPL, TYPE II OR UNSPEC TY 12/04/2015 MUMTAZ MOYA KNIT GOODS MENDER Ot 457.1 OTHER LYMPHEDEMA 12/04/2015 MUMTAZ MOYA KNIT GOODS MENDER Ot 782.3 EDEMA 12/04/2015 MUMTAZ MOYA KNIT GOODS MENDER Ot V45.71 ACQUIRED ABSENCE OF BREAST AND NIPPLE 12/04/2015 MUMTAZ MOYA KNIT GOODS MENDER Ot V58.67 LONG-TERM (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 OF INSULIN 12/04/2015 MUMTAZ MOYA KNIT GOODS MENDER Ot V58.69 OTH MED,LT,CURRENT USE 12/04/2015 MUMTAZ MOYA KNIT GOODS MENDER Ot V86.0 ESTROGEN RECEPTOR POSITIVE STATUS [ER+] 12/04/2015 MUMTAZ MOYA KNIT GOODS MENDER Ot 174.4 MAL PAWEL BREAST UP-OUTER 12/04/2015 MUMTAZ MOYA S KNIT GOODS MENDER Ot 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 12/04/2015 MUMTAZ MOYA S KNIT GOODS MENDER Ot 250.00 DIAB NESTOR WO COMPL, TYPE II OR UNSPEC TY 12/04/2015 MUMTAZ MOYA KNIT GOODS MENDER Ot V45.71 ACQUIRED ABSENCE OF BREAST AND NIPPLE 12/04/2015 DC MOYARICHARD S KNIT GOODS MENDER Ot V58.67 LONG-TERM (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 OF INSULIN 12/04/2015 MUMTAZ MOYA KNIT GOODS MENDER Ot V58.69 OTH MED,LT,CURRENT USE 12/04/2015 DC MOYARICHARD S KNIT GOODS MENDER Ot V86.0 ESTROGEN RECEPTOR POSITIVE STATUS [ER+] 12/04/2015 MUMTAZ MOYA S KNIT GOODS MENDER Ot 174.9 MALIGN NEOPL BREAST NOS 12/04/2015 DC MOYARICHARD S KNIT GOODS MENDER Ot 397.0 TRICUSPID VALVE DISEASE 12/04/2015 DC MOYARICHARD S KNIT GOODS MENDER Ot 424.0 MITRAL VALVE DISORDER 12/04/2015 MUMTAZ MOYA S KNIT GOODS MENDER Ot 733.90 BONE CARTILAGE DIS NOS 12/04/2015 MUMTAZ MOYA S KNIT GOODS MENDER Ot V58.69 OTH MED,LT,CURRENT USE 12/04/2015 MUMTAZ MOYA KNIT GOODS MENDER Ot 174.9 MALIGN NEOPL BREAST NOS 12/04/2015 MUMTAZ MOYA KNIT GOODS MENDER Ot 250.00 DIAB NESTOR WO COMPL, TYPE II OR UNSPEC TY 12/04/2015 DC MOYARICHARD S KNIT GOODS MENDER Ot 397.0 TRICUSPID VALVE DISEASE 12/04/2015 MUMTAZ MOYA S KNIT GOODS MENDER Ot 424.0 MITRAL VALVE DISORDER 12/04/2015 MUMTAZ MOYA S KNIT GOODS MENDER Ot 733.90 BONE CARTILAGE DIS NOS 12/04/2015 MUMTAZ MOYA KNIT GOODS MENDER Ot V45.71 ACQUIRED ABSENCE OF BREAST AND NIPPLE 12/04/2015 MUMTAZ MOYA S KNIT GOODS MENDER Ot V58.67 LONG-TERM (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 OF INSULIN 12/04/2015 MUMTAZ MOYA S KNIT GOODS MENDER Ot V58.69 OTH MED,LT,CURRENT USE 12/04/2015 MUMTAZ MOYA S KNIT GOODS MENDER Ot V86.0 ESTROGEN RECEPTOR POSITIVE STATUS [ER+] 12/04/2015 MUMTAZ MOYA S KNIT GOODS MENDER Ot 174.9 MALIGN NEOPL BREAST NOS 12/04/2015 MUMTAZ MOYA S KNIT GOODS MENDER Ot 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 12/04/2015 MUMTAZ MOYA KNIT GOODS MENDER Ot 244.9 HYPOTHYROIDISM NOS 12/04/2015 MUMTAZ MOYA S KNIT GOODS MENDER Ot 250.00 DIAB NESTOR WO COMPL, TYPE II OR UNSPEC TY 12/04/2015 GRIFFIN MUMTAZ S KNIT GOODS MENDER Ot V45.71 ACQUIRED ABSENCE OF BREAST AND NIPPLE 12/04/2015 MUMTAZ MOYA KNIT GOODS MENDER Ot V58.67 LONG-TERM (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 OF INSULIN 12/04/2015 MUMTAZ MOYA KNIT GOODS MENDER Ot V58.69 OTH MED,LT,CURRENT USE 12/04/2015 MUMTAZ MOYA KNIT GOODS MENDER Ot V86.0 ESTROGEN RECEPTOR POSITIVE STATUS [ER+] 12/04/2015 MUMTAZ MOYA S KNIT GOODS MENDER Ot V87.41 PERSONAL HISTORY OF ANTINEOPLASTIC CHEMO 12/04/2015 MUMTAZ MOYA S KNIT GOODS MENDER Ot 174.9 MALIGN NEOPL BREAST NOS 12/04/2015 MUMTAZ MOYA S KNIT GOODS MENDER Ot 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 12/04/2015 MUMTAZ MOYA KNIT GOODS MENDER Ot 244.9 HYPOTHYROIDISM NOS 12/04/2015 MUMTAZ MOYA S KNIT GOODS MENDER Ot 250.00 DIAB NESTOR WO COMPL, TYPE II OR UNSPEC TY 12/04/2015 MUMTAZ MOYA KNIT GOODS MENDER Ot V45.71 ACQUIRED ABSENCE OF BREAST AND NIPPLE 12/04/2015 MUMTAZ MOYA KNIT GOODS MENDER Ot V58.67 LONG-TERM (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 OF INSULIN 12/04/2015 MUMTAZ MOYA [employer] Ot V58.69 OTH MED,LT,CURRENT USE 12/04/2015 MUMTAZ MOYA [employer] Ot V86.0 ESTROGEN RECEPTOR POSITIVE STATUS [ER+] 12/04/2015 MUMTAZ MOYA [employer] Ot V87.41 PERSONAL HISTORY OF ANTINEOPLASTIC CHEMO 12/04/2015 MUMTAZ MOYA [employer] Ot 174.9 MALIGN NEOPL BREAST NOS 12/04/2015 MUMTAZ MOYA S [employer] Ot 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 12/04/2015 MUMTAZ MOYA [employer] Ot V15.3 HX OF IRRADIATION 12/04/2015 MUMTAZ MOYA S [employer] Ot V45.71 ACQUIRED ABSENCE OF BREAST AND NIPPLE 12/04/2015 MUMTAZ MOYA S [employer] Ot V58.69 OTH MED,LT,CURRENT USE 12/04/2015 MUMTAZ MOYA S [employer] Ot V86.0 ESTROGEN RECEPTOR POSITIVE STATUS [ER+] 12/04/2015 MUMTAZ MOYA [employer] Ot V87.41 PERSONAL HISTORY OF ANTINEOPLASTIC CHEMO 12/04/2015 MUMTAZ MOYA [employer] Ot 174.9 MALIGN NEOPL BREAST NOS 12/04/2015 MUMTAZ MOYA [employer] Ot 397.0 TRICUSPID VALVE DISEASE 12/04/2015 DC MOYARICHARD Coby [employer] Ot 424.0 MITRAL VALVE DISORDER 12/04/2015 MUMTAZ MOYA [employer] Ot V58.69 OTH MED,LT,CURRENT USE 12/04/2015 DC MOYAIRCHARD Tenorio [employer] Ot V58.83 ENCOUNTER FOR THERAPEUTIC DRUG MONITORIN 12/04/2015 MUMTAZ MOYAP Ot V87.41 PERSONAL HISTORY OF ANTINEOPLASTIC CHEMO 12/04/2015 MUMTAZ MOYA [employer] Ot 174.9 MALIGN NEOPL BREAST NOS 12/04/2015 MUMTAZ MOYA [employer] Ot 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 12/04/2015 MUMTAZ MOYA [employer] Ot V15.3 HX OF IRRADIATION 12/04/2015 DC MOYARICHARD Coby [employer] Ot V16.41 FAM HX-MAL NEOP-OVARY 12/04/2015 MUMTAZ MOYA [employer] Ot V45.71 ACQUIRED ABSENCE OF BREAST AND NIPPLE 12/04/2015 MUMTAZ MOYAP Ot V58.69 OTH MED,LT,CURRENT USE 12/04/2015 MUMTAZ MOYA [employer] Ot V86.0 ESTROGEN RECEPTOR POSITIVE STATUS [ER+] 12/04/2015 MUMTAZ MOYA [employer] Ot V87.41 PERSONAL HISTORY OF ANTINEOPLASTIC CHEMO 12/04/2015 MUMTAZ MOYA [employer] Ot 174.9 MALIGN NEOPL BREAST NOS 12/04/2015 DC MOYARICHARD Coby [employer] Ot 793.11 SOLITARY PULMONARY NODULE 12/04/2015 Ot 174.4 MAL PAWEL BREAST UP-OUTER 12/04/2015 Ot 196.3 MAL PAWEL LYMPH -AXILLA/ARM 12/04/2015 Ot V58.11 ENCOUNTER FOR ANTINEOPLASTIC CHEMOTHERAP 12/04/2015 Ot V58.69 OTH MED,LT, CURRENT USE 12/04/2015 Ot V86.0 ESTROGEN RECEPTOR POSITIVE STATUS [ER+] 12/04/2015 MUMTAZ MOYA [employer] Ot 174.9 MALIGN NEOPL BREAST NOS 12/04/2015 MUMTAZ MOYA [employer] Ot 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 12/04/2015 MUMTAZ MOYA [employer] Ot V15.3 HX OF IRRADIATION 12/04/2015 MUMTAZ MOYA [employer] Ot V16.41 FAM HX-MAL NEOP-OVARY 12/04/2015 MOYAMUMTAZ Tenorio [employer] Ot V45.71 ACQUIRED ABSENCE OF BREAST AND NIPPLE 12/04/2015 MOYAMUMTAZ Tenorio [employer] Ot V58.69 OTH MED,LT,CURRENT USE 12/04/2015 MOYAMUMTAZ Tenorio [employer] Ot V86.0 ESTROGEN RECEPTOR POSITIVE STATUS [ER+] 12/04/2015 MOYAMUMTAZ Tenorio [employer] Ot V87.41 PERSONAL HISTORY OF ANTINEOPLASTIC CHEMO 12/04/2015 GRIFFIN MUMTAZ Tenorio [employer] Ot 174.9 MALIGN NEOPL BREAST NOS 12/04/2015 MOYA MUMTAZ Tenorio [employer] Ot 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 12/04/2015 MUTMAZ MOYA [employer] Ot V15.3 HX OF IRRADIATION 12/04/2015 MOYAMUMTAZ Tenorio [employer] Ot V16.41 FAM HX-MAL NEOP-OVARY 12/04/2015 MOYAMUMTAZ Tenorio [employer] Ot V45.71 ACQUIRED ABSENCE OF BREAST AND NIPPLE 12/04/2015 MOYA MUMTAZ Tenorio [employer] Ot V58.69 OTH MED,LT,CURRENT USE 12/04/2015 MOYAMUMTAZ Tenorio [employer] Ot V86.0 ESTROGEN RECEPTOR POSITIVE STATUS [ER+] 12/04/2015 GRIFFIN MUMTAZ Tenorio [employer] Ot V87.41 PERSONAL HISTORY OF ANTINEOPLASTIC CHEMO 12/04/2015 GRIFFIN MUMTAZ Tenorio [employer] Ot 174.9 MALIGN NEOPL BREAST NOS 12/04/2015 GRIFFIN MUMTAZ S [employer] Ot 174.9 MALIGN NEOPL BREAST NOS 12/04/2015 GRIFFIN MUMTAZ Tenorio [employer] Ot 793.11 SOLITARY PULMONARY NODULE 12/04/2015 MADELINE IVAN MD Ot 174.9 MALIGN NEOPL BREAST NOS 12/04/2015 MADELINE IVAN MD Ot 244.9 HYPOTHYROIDISM NOS 12/04/2015 MADELINE IVAN MD Ot 397.0 TRICUSPID VALVE DISEASE 12/04/2015 ADRI GREEN, MADELINE Jackson Ot 401.9 HYPERTENSION NOS 12/04/2015 MADELINE IVAN MD Ot 424.0 MITRAL VALVE DISORDER 12/04/2015 ADRI GREEN, MADELINE Jackson Ot 782.3 EDEMA 12/04/2015 MUMTAZ MOYA [employer] Ot 174.9 MALIGN NEOPL BREAST NOS 12/04/2015 FILI, KAREEM Humphreys Ot 174.9 MALIGN NEOPL BREAST NOS 12/04/2015 FILI KAREEM Humphreys Ot 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 12/04/2015 FILI KAREEM Humphreys Ot V15.3 HX OF IRRADIATION 12/04/2015 GASTON PENNJESSICA Humphreys Ot V45.71 ACQUIRED ABSENCE OF BREAST AND NIPPLE 12/04/2015 KAREEM PENN Petr Ot V58.69 OTH MED,LT,CURRENT USE 12/04/2015 FILI, KAREEM Humphreys Ot V86.0 ESTROGEN RECEPTOR POSITIVE STATUS [ER+] 12/04/2015 FILI, KAREEM Humphreys Ot V87.41 PERSONAL HISTORY OF ANTINEOPLASTIC CHEMO 12/04/2015 MUMTAZ MOYA [employer] Ot 174.9 MALIGN NEOPL BREAST NOS 12/04/2015 MUMTAZ MOYA [employer] Ot 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 12/04/2015 MUMTAZ MOYA [employer] Ot 250.00 DIAB NESTOR WO COMPL, TYPE II OR UNSPEC TY 12/04/2015 MUMTAZ MOYA [employer] Ot 305.1 TOBACCO USE DISORDER 12/04/2015 MUMTAZ MOYA [employer] Ot V15.3 HX OF IRRADIATION 12/04/2015 MUMTAZ MOYA [employer] Ot V45.71 ACQUIRED ABSENCE OF BREAST AND NIPPLE 12/04/2015 MUMTAZ MOYA [employer] Ot V58.67 LONG-TERM (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 OF INSULIN 12/04/2015 MUMTAZ MOYA [employer] Ot V58.69 OTH MED,LT,CURRENT USE 12/04/2015 MUMTAZ MOYA [employer] Ot V86.0 ESTROGEN RECEPTOR POSITIVE STATUS [ER+] 12/04/2015 MUMTAZ MOYA [employer] Ot V87.41 PERSONAL HISTORY OF ANTINEOPLASTIC CHEMO 12/04/2015 MUMTAZ MOYA [employer] Ot 611.72 LUMP OR MASS IN BREAST 12/04/2015 GRIFFIN MUMTAZ Tenorio [employer] Ot 793.11 SOLITARY PULMONARY NODULE 12/04/2015 DC MOYARICHARD Tenorio [employer] Ot V10.3 HX OF BREAST MALIGNANCY 12/04/2015 GRIFFIN MUMTAZ Tenorio [employer] Ot V45.71 ACQUIRED ABSENCE OF BREAST AND NIPPLE 12/04/2015 GRIFFIN MUMTAZ Tenorio [employer] Ot V84.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 12/04/2015 MUMTAZ MOYA Coby [employer] Ot 174.9 MALIGN NEOPL BREAST NOS 12/04/2015 GRIFFIN MUMTAZ Tenorio [employer] Ot 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 12/04/2015 GRIFFIN MUMTAZ Tenorio [employer] Ot 250.00 DIAB NESTOR WO COMPL, TYPE II OR UNSPEC TY 12/04/2015 GRIFFIN MUMTAZ Tenorio [employer] Ot 305.1 TOBACCO USE DISORDER 12/04/2015 GRIFFIN MUMTAZ Tenorio [employer] Ot 733.90 BONE CARTILAGE DIS NOS 12/04/2015 DC MOYARICHARD Tenorio [employer] Ot V15.3 HX OF IRRADIATION 12/04/2015 GRIFFIN MUMTAZ Tenorio [employer] Ot V45.71 ACQUIRED ABSENCE OF BREAST AND NIPPLE 12/04/2015 MUMTAZ MOYA Coby [employer] Ot V58.67 LONG-TERM (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 OF INSULIN 12/04/2015 GRIFFIN MUMTAZ Tenorio [employer] Ot V58.69 OTH MED,LT,CURRENT USE 12/04/2015 GRIFFIN MUMTAZ Tenorio [employer] M[employer] Ot V86.0 ESTROGEN RECEPTOR POSITIVE STATUS [ER+] 12/04/2015 GRIFFIN MUMTAZ Tenorio [employer] Ot V87.41 PERSONAL HISTORY OF ANTINEOPLASTIC CHEMO 12/04/2015 DC MOYARICHARD Tenorio [employer] Ot 174.9 MALIGN NEOPL BREAST NOS 12/04/2015 DC MOYARICHARD Tenorio [employer] Ot 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 12/04/2015 GRIFFIN MUMTAZ Tenorio [employer] Ot 733.90 BONE CARTILAGE DIS NOS 12/04/2015 GRIFFIN MUMTAZ Tenorio [employer] Ot 793.11 SOLITARY PULMONARY NODULE 12/04/2015 GRIFFIN MUMTAZ Tenorio [employer] M[employer] Ot V84.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 12/04/2015 ENDER PAZ Ot E10.9 TYPE 1 DIABETES MELLITUS WITHOUT COMPLIC 12/04/2015 ENDER PAZ Ot E66.8 OTHER OBESITY 12/04/2015 ENDER PAZ Ot I10 ESSENTIAL (PRIMARY) HYPERTENSION 12/04/2015 ENDER PZA Ot R60.9 EDEMA, UNSPECIFIED 12/04/2015 JASPER GREEN, MARK Willoughby Ot M06.9 RHEUMATOID ARTHRITIS, UNSPECIFIED 12/04/2015 MUMTAZ MOYA Ot C50.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 12/04/2015 MUMTAZ MOYA Ot C77.3 SEC AND UNSP MALIG NEOPLASM OF AXILLA AN 12/04/2015 MUMTAZ MOYA Ot M85.80 OTH DISRD OF BONE DENSITY AND STRUCTURE, 12/04/2015 MUMTAZ MOYA Ot Z15.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 12/04/2015 MUMTAZ MOYA Ot Z17.0 ESTROGEN RECEPTOR POSITIVE STATUS [ER+] 12/04/2015 MUMTAZ MOYA [employer] Ot Z79.811 FCI (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 OF AROMATASE INH 12/04/2015 MUMTAZ MOYAP Ot Z90.11 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 12/04/2015 MUMTAZ MOYA Ot Z92.3 PERSONAL HISTORY OF IRRADIATION 12/04/2015 KAREEM PENN Ot C50.919 MALIGNANT NEOPLASM OF UNSP SITE OF UNSPE 12/04/2015 MUMTAZ MOYA Ot 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 12/04/2015 MUMATZ MOYAP Ot 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 12/04/2015 MUMTAZ MOYA Ot C77.3 SEC AND UNSP MALIG NEOPLASM OF AXILLA AN 12/04/2015 MUMTAZ MOYAP Ot M85.80 OTH DISRD OF BONE DENSITY AND STRUCTURE, 12/04/2015 MUMTAZ MOYAP Ot Z17.0 ESTROGEN RECEPTOR POSITIVE STATUS [ER+] 12/04/2015 MUMTAZ MOYA [employer] Ot Z79.811 FCI (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 OF AROMATASE INH 12/04/2015 MUMTAZ MOYA [employer] M[employer] Ot Z90.11 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 12/04/2015 MUMTAZ MOYA [employer] M[employer] Ot Z92.3 PERSONAL HISTORY OF IRRADIATION 12/08/2015 KAREEM PENN Ot C50.919 MALIGNANT NEOPLASM OF UNSP SITE OF UNSPE 01/08/2016 KAREEM PENN Petr Ot 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 01/08/2016 KAREEM PENN Petr Ot C77.3 SEC AND UNSP MALIG NEOPLASM OF AXILLA AN 01/08/2016 KRAEEM PENN Petr Ot M85.80 OT DISRD OF BONE DENSITY AND STRUCTURE, 01/08/2016 KAREEM PENN Petr Ot R10.11 RIGHT UPPER QUADRANT PAIN 01/08/2016 KAREEM PENN Petr Ot Z17.0 ESTROGEN RECEPTOR POSITIVE STATUS [ER+] 01/08/2016 KAREEM PENN Petr Ot Z79.811 FCI (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 OF AROMATASE INH 01/08/2016 KAREEM PENN Petr Ot Z90.11 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 01/08/2016 KAREEM PENN Petr Ot Z92.3 PERSONAL HISTORY OF IRRADIATION 01/24/2016 KAREEM PENN Petr Ot 174.9 MALIGN NEOPL BREAST NOS 01/24/2016 KAREEM PENN Petr Ot 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 01/24/2016 KAREEM PENN Petr Ot V15.3 HX OF IRRADIATION 01/24/2016 KAREEM PENN Petr Ot V45.71 ACQUIRED ABSENCE OF BREAST AND NIPPLE 01/24/2016 KAREEM PENN Petr Ot V58.69 OT MED,LT,CURRENT USE 01/24/2016 KAREEM PENN Petr Ot V86.0 ESTROGEN RECEPTOR POSITIVE STATUS [ER+] 01/24/2016 KAREEM PENN Petr Ot V87.41 PERSONAL HISTORY OF ANTINEOPLASTIC CHEMO 01/24/2016 MUMTAZ MOYA [employer] Ot 174.9 MALIGN NEOPL BREAST NOS 01/24/2016 MUMTAZ MOYA [employer] M[employer] Ot 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 01/24/2016 MUMTAZ MOYA [employer] M[employer]ER Ot 250.00 DIAB NESTOR WO COMPL, TYPE II OR UNSPEC TY 01/24/2016 MUMTAZ MOYA [employer] M[employer] Ot 305.1 TOBACCO USE DISORDER 01/24/2016 MUMTAZ MOYA [employer] M[employer]ER Ot V15.3 HX OF IRRADIATION 01/24/2016 MUMTAZ MOYA [employer] M[employer] Ot V45.71 ACQUIRED ABSENCE OF BREAST AND NIPPLE 01/24/2016 MUMTAZ MOYA [employer] M[employer] Ot V58.67 LONG-TERM (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 OF INSULIN 01/24/2016 MUMTAZ MOYA [employer] M[employer] Ot V58.69 OTH MED,LT,CURRENT USE 01/24/2016 MUMTAZ MOYA [employer] M[employer] Ot V86.0 ESTROGEN RECEPTOR POSITIVE STATUS [ER+] 01/24/2016 MUMTAZ MOYA [employer] M[employer] Ot V87.41 PERSONAL HISTORY OF ANTINEOPLASTIC CHEMO 01/24/2016 MUMTAZ MOYA [employer] M[employer] Ot 611.72 LUMP OR MASS IN BREAST 01/24/2016 MUMTAZ MOYA [employer] M[employer] Ot 793.11 SOLITARY PULMONARY NODULE 01/24/2016 MUMTAZ MOYA [employer] M[employer]ER Ot V10.3 HX OF BREAST MALIGNANCY 01/24/2016 MUMTAZ MOYA [employer] M[employer] Ot V45.71 ACQUIRED ABSENCE OF BREAST AND NIPPLE 01/24/2016 MUMTAZ MOYA [employer] MENDER Ot V84.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 01/24/2016 MUMTAZ MOYA [employer] MENDER Ot 174.9 MALIGN NEOPL BREAST NOS 01/24/2016 MUMTAZ MOYA [employer] M[employer] Ot 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 01/24/2016 MUMTAZ MOYA [employer] MENDER Ot 250.00 DIAB NESTOR WO COMPL, TYPE II OR UNSPEC TY 01/24/2016 MUMTAZ MYOA [employer] M[employer]ER Ot 305.1 TOBACCO USE DISORDER 01/24/2016 MUMTAZ MOYA [employer] MENDER Ot 733.90 BONE CARTILAGE DIS NOS 01/24/2016 MUMTAZ MOYA [employer] M[employer]ER Ot V15.3 HX OF IRRADIATION 01/24/2016 MUMTAZ MOYA [employer] M[employer]ER Ot V45.71 ACQUIRED ABSENCE OF BREAST AND NIPPLE 01/24/2016 MUMTAZ MOYA [employer] M[employer]ER Ot V58.67 LONG-TERM (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 OF INSULIN 01/24/2016 MUMTAZ MOYA [employer] M[employer] Ot V58.69 OTH MED,LT,CURRENT USE 01/24/2016 MUMTAZ MOYA [employer] M[employer]ER Ot V86.0 ESTROGEN RECEPTOR POSITIVE STATUS [ER+] 01/24/2016 MUMTAZ MOYA Ot V87.41 PERSONAL HISTORY OF ANTINEOPLASTIC CHEMO 01/24/2016 MUMTAZ MOYA [employer] M[employer] Ot 174.9 MALIGN NEOPL BREAST NOS 01/24/2016 MUMTAZ MOYA Ot 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 01/24/2016 MUMTAZ MOYA Ot 733.90 BONE CARTILAGE DIS NOS 01/24/2016 MUMTAZ MOYA Ot 793.11 SOLITARY PULMONARY NODULE 01/24/2016 MUTMAZ MOYA Ot V84.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 01/24/2016 ENDER PAZ Ot E10.9 TYPE 1 DIABETES MELLITUS WITHOUT COMPLIC 01/24/2016 ENDER PAZ Ot E66.8 OTHER OBESITY 01/24/2016 ENDER PAZ Ot I10 ESSENTIAL (PRIMARY) HYPERTENSION 01/24/2016 ENDER PAZ Ot R60.9 EDEMA, UNSPECIFIED 01/24/2016 JASPER GREEN, MARK Willoughby Ot M06.9 RHEUMATOID ARTHRITIS, UNSPECIFIED 01/24/2016 MUMTAZ MOYA Ot C50.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 01/24/2016 MUMTAZ MOYA Ot C77.3 SEC AND UNSP MALIG NEOPLASM OF AXILLA AN 01/24/2016 MUMTAZ MOYAP Ot M85.80 OTH DISRD OF BONE DENSITY AND STRUCTURE, 01/24/2016 MUMTAZ MOYAP Ot Z15.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 01/24/2016 MUMTAZ MOYAP Ot Z17.0 ESTROGEN RECEPTOR POSITIVE STATUS [ER+] 01/24/2016 MUMTAZ MOYA Ot 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 01/24/2016 MUMTAZ MOYAP Ot Z90.11 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 01/24/2016 MUMTAZ MOYA Ot Z92.3 PERSONAL HISTORY OF IRRADIATION 01/24/2016 MUMTAZ MOYAP Ot 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 01/24/2016 MUMTAZ MOYA [employer] Ot 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 01/24/2016 MUMTAZ MOYAP Ot C77.3 SEC AND UNSP MALIG NEOPLASM OF AXILLA AN 01/24/2016 MOYAMUMTAZ Tenorio [employer] M[employer]ER Ot M85.80 OTH DISRD OF BONE DENSITY AND STRUCTURE, 01/24/2016 MOYAMUMTAZ Tenorio [employer] M[employer]ER Ot Z17.0 ESTROGEN RECEPTOR POSITIVE STATUS [ER+] 01/24/2016 MOYAMUMTAZ Tenorio [employer] M[employer]ER Ot 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 01/24/2016 MOYAMUMTAZ Tenorio [employer] M[employer]ER Ot Z90.11 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 01/24/2016 MOYAMUMTAZ Tenorio [employer] M[employer]ER Ot Z92.3 PERSONAL HISTORY OF IRRADIATION 02/06/2016 MOYAMUMTAZ TenorioP Ot 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 02/06/2016 MUMTAZ MOYAP Ot C77.3 SEC AND UNSP MALIG NEOPLASM OF AXILLA AN 02/06/2016 MOYAMUMTAZ TenorioP Ot M85.80 OTH DISRD OF BONE DENSITY AND STRUCTURE, 02/06/2016 MOYAMUMTAZ Tenorio [employer]ER Ot Z17.0 ESTROGEN RECEPTOR POSITIVE STATUS [ER+] 02/06/2016 MOYAMUMTAZ Tenorio [employer] M[employer]ER Ot 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 02/06/2016 GRIFFINMUMTAZ [employer] MENDER Ot Z90.11 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 02/06/2016 MOYAMUMTAZ Tenorio [employer] M[employer]ER Ot Z92.3 PERSONAL HISTORY OF IRRADIATION 02/11/2016 Ot 611.72 LUMP OR MASS IN BREAST 02/11/2016 Ot 793.81 MAMMOGRAPHIC MICROCLACIFICATION 02/11/2016 Ot 174.9 MALIGN NEOPL BREAST NOS 02/11/2016 Ot V58.69 OTH MED,LT, CURRENT USE 02/11/2016 Ot 174.4 MAL PAWEL BREAST UP-OUTER 02/11/2016 Ot 196.3 MAL PAWEL LYMPH -AXILLA/ARM 02/11/2016 Ot V58.11 ENCOUNTER FOR ANTINEOPLASTIC CHEMOTHERAP 02/11/2016 Ot V58.69 OTH MED,LT, CURRENT USE 02/11/2016 Ot V86.0 ESTROGEN RECEPTOR POSITIVE STATUS [ER+] 02/11/2016 Ot 174.9 MALIGN NEOPL BREAST NOS 02/11/2016 Ot 276.69 OTHER FLUID OVERLOAD 02/11/2016 Ot 397.0 TRICUSPID VALVE DISEASE 02/11/2016 Ot 424.0 MITRAL VALVE DISORDER 02/11/2016 Ot V58.69 OTH MED,LT, CURRENT USE 02/11/2016 Ot V58.83 ENCOUNTER FOR THERAPEUTIC DRUG MONITORIN 02/11/2016 Ot V87.41 PERSONAL HISTORY OF ANTINEOPLASTIC CHEMO 02/11/2016 Ot 174.9 MALIGN NEOPL BREAST NOS 02/11/2016 Ot V58.69 OTH MED,LT, CURRENT USE 02/11/2016 Ot V87.41 PERSONAL HISTORY OF ANTINEOPLASTIC CHEMO 02/11/2016 Ot V58.69 OTH MED,LT, CURRENT USE 02/11/2016 Ot V58.83 ENCOUNTER FOR THERAPEUTIC DRUG MONITORIN 02/11/2016 Ot 428.0 CONGESTIVE HEART FAILURE NOS 02/11/2016 FILIKAREEM N Ot 996.74 OTH COMPL DUE TO OT VASCULAR DEVICE,IMP 02/11/2016 KEY JOSE [employer] Ot 729.5 PAIN IN LIMB 02/11/2016 DEVINEUGENIO FRIED [employer]ER Ot 729.5 PAIN IN LIMB 02/11/2016 DEVINEUGENIO FRIED [employer] M[employer]ER Ot 729.81 SWELLING OF LIMB 02/11/2016 MUMTAZ MOYA [employer] M[employer]ER Ot 174.4 MAL PAWEL BREAST UP-OUTER 02/11/2016 MUMTAZ MOYA [employer] M[employer] Ot 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 02/11/2016 MUMTAZ MOYA [employer] M[employer] Ot 250.00 DIAB NESTOR WO COMPL, TYPE II OR UNSPEC TY 02/11/2016 MUMTAZ MOYA [employer] M[employer] Ot 782.3 EDEMA 02/11/2016 MUMTAZ MOYA [employer] M[employer]ER Ot V45.71 ACQUIRED ABSENCE OF BREAST AND NIPPLE 02/11/2016 MUMTAZ MOYA [employer] M[employer] Ot V58.67 LONG-TERM (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 OF INSULIN 02/11/2016 MUMTAZ MOYAP Ot V58.69 OTH MED,LT,CURRENT USE 02/11/2016 MUMTAZ MOYA [employer] M[employer] Ot V86.0 ESTROGEN RECEPTOR POSITIVE STATUS [ER+] 02/11/2016 MUMTAZ MOYA [employer] MENDER Ot 397.0 TRICUSPID VALVE DISEASE 02/11/2016 MUMTAZ MOYA [employer] MENDER Ot 424.0 MITRAL VALVE DISORDER 02/11/2016 MUMTAZ MOYA [employer] MENDER Ot 782.3 EDEMA 02/11/2016 MUMTAZ MOYAP Ot V58.69 OT MED,LT,CURRENT USE 02/11/2016 MUMTAZ MOYAP Ot V58.83 ENCOUNTER FOR THERAPEUTIC DRUG MONITORIN 02/11/2016 MUMTAZ MOYAP Ot V87.41 PERSONAL HISTORY OF ANTINEOPLASTIC CHEMO 02/11/2016 MUMTAZ MOYA [employer] M[employer] Ot 174.4 MAL PAWEL BREAST UP-OUTER 02/11/2016 MUMTAZ MOYA [employer] M[employer]ER Ot 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 02/11/2016 MUMTAZ MOYA [employer] M[employer]ER Ot 250.00 DIAB NESTOR WO COMPL, TYPE II OR UNSPEC TY 02/11/2016 MUMTAZ MOYA [employer] M[employer]ER Ot 457.1 OTHER LYMPHEDEMA 02/11/2016 MUMTAZ MOYA [employer] M[employer]ER Ot 782.3 EDEMA 02/11/2016 MUMTAZ MOYA [employer] M[employer]ER Ot V45.71 ACQUIRED ABSENCE OF BREAST AND NIPPLE 02/11/2016 MUMTAZ MOYA [employer] MENDER Ot V58.67 LONG-TERM (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 OF INSULIN 02/11/2016 MUMTAZ MOYA [employer] M[employer]ER Ot V58.69 OT MED,LT,CURRENT USE 02/11/2016 MUMTAZ MOYA [employer] MENDER Ot V86.0 ESTROGEN RECEPTOR POSITIVE STATUS [ER+] 02/11/2016 MUMTAZ MOYA [employer] M[employer]ER Ot 174.4 MAL PAWEL BREAST UP-OUTER 02/11/2016 MUMTAZ MOYA [employer] MENDER Ot 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 02/11/2016 MUMTAZ MOYA [employer] MENDER Ot 250.00 DIAB NESTOR WO COMPL, TYPE II OR UNSPEC TY 02/11/2016 MUMTAZ MOYA [employer] MENDER Ot V45.71 ACQUIRED ABSENCE OF BREAST AND NIPPLE 02/11/2016 MUMTAZ MOYA [employer] MENDER Ot V58.67 LONG-TERM (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 OF INSULIN 02/11/2016 MUMTAZ MOYA S [employer] M[employer]ER Ot V58.69 OTH MED,LT,CURRENT USE 02/11/2016 MUMTAZ MOYA [employer] MENDER Ot V86.0 ESTROGEN RECEPTOR POSITIVE STATUS [ER+] 02/11/2016 MUMTAZ MOYA S [employer] MENDER Ot 174.9 MALIGN NEOPL BREAST NOS 02/11/2016 MUMTAZ MOYA S [employer] MENDER Ot 397.0 TRICUSPID VALVE DISEASE 02/11/2016 MUMTAZ MOYA S [employer] MENDER Ot 424.0 MITRAL VALVE DISORDER 02/11/2016 MUMTAZ MOYA S [employer] MENDER Ot 733.90 BONE CARTILAGE DIS NOS 02/11/2016 MUMTAZ MOYA [employer] MENDER Ot V58.69 OTH MED,LT,CURRENT USE 02/11/2016 MUMTAZ MOYA [employer] MENDER Ot 174.9 MALIGN NEOPL BREAST NOS 02/11/2016 MUMTAZ MOYA S [employer] MENDER Ot 250.00 DIAB NESTOR WO COMPL, TYPE II OR UNSPEC TY 02/11/2016 MUMTAZ MOYA S [employer] MENDER Ot 397.0 TRICUSPID VALVE DISEASE 02/11/2016 MUMTAZ MOYA S [employer] MENDER Ot 424.0 MITRAL VALVE DISORDER 02/11/2016 MUMTAZ MOYA S [employer] MENDER Ot 733.90 BONE CARTILAGE DIS NOS 02/11/2016 MUMTAZ MOYA [employer] MENDER Ot V45.71 ACQUIRED ABSENCE OF BREAST AND NIPPLE 02/11/2016 MUMTAZ MOYA [employer] MENDER Ot V58.67 LONG-TERM (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 OF INSULIN 02/11/2016 MUMTAZ MOYA S [employer] M[employer]ER Ot V58.69 OTH MED,LT,CURRENT USE 02/11/2016 MUMTAZ MOYA S [employer] MENDER Ot V86.0 ESTROGEN RECEPTOR POSITIVE STATUS [ER+] 02/11/2016 MUMTAZ MOYA S [employer] M[employer]ER Ot 174.9 MALIGN NEOPL BREAST NOS 02/11/2016 MUMTAZ MOYA S [employer] MENDER Ot 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 02/11/2016 MUMTAZ MOYA S [employer] M[employer]ER Ot 244.9 HYPOTHYROIDISM NOS 02/11/2016 MUMTAZ MOYA S [employer] MENDER Ot 250.00 DIAB NESTOR WO COMPL, TYPE II OR UNSPEC TY 02/11/2016 MUMTAZ MOYA S [employer] MENDER Ot V45.71 ACQUIRED ABSENCE OF BREAST AND NIPPLE 02/11/2016 MUMTAZ MOYA [employer] MENDER Ot V58.67 LONG-TERM (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 OF INSULIN 02/11/2016 MUMTAZ MOYA [employer] MENDER Ot V58.69 OTH MED,LT,CURRENT USE 02/11/2016 MUMTAZ MOYA [employer] MENDER Ot V86.0 ESTROGEN RECEPTOR POSITIVE STATUS [ER+] 02/11/2016 MUMTAZ MOYA [employer] MENDER Ot V87.41 PERSONAL HISTORY OF ANTINEOPLASTIC CHEMO 02/11/2016 MUMTAZ MOYA [employer] MENDER Ot 174.9 MALIGN NEOPL BREAST NOS 02/11/2016 MUMTAZ MOYA [employer] MENDER Ot 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 02/11/2016 MUMTAZ MOYA [employer] MENDER Ot 244.9 HYPOTHYROIDISM NOS 02/11/2016 MUMTAZ MOYA [employer] MENDER Ot 250.00 DIAB NESTOR WO COMPL, TYPE II OR UNSPEC TY 02/11/2016 MUMTAZ MOYA [employer] MENDER Ot V45.71 ACQUIRED ABSENCE OF BREAST AND NIPPLE 02/11/2016 MUMTAZ MOYA [employer] MENDER Ot V58.67 LONG-TERM (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 OF INSULIN 02/11/2016 MUMTAZ MOYA [employer] MENDER Ot V58.69 OTH MED,LT,CURRENT USE 02/11/2016 MUMTAZ MOYA [employer] MENDER Ot V86.0 ESTROGEN RECEPTOR POSITIVE STATUS [ER+] 02/11/2016 MUMTAZ MOYA [employer] MENDER Ot V87.41 PERSONAL HISTORY OF ANTINEOPLASTIC CHEMO 02/11/2016 MUMTAZ MOYA [employer] MENDER Ot 174.9 MALIGN NEOPL BREAST NOS 02/11/2016 MUMTAZ MOYA [employer] MENDER Ot 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 02/11/2016 MUMTAZ MOYA [employer] MENDER Ot V15.3 HX OF IRRADIATION 02/11/2016 MUMTAZ MOYA [employer] MENDER Ot V45.71 ACQUIRED ABSENCE OF BREAST AND NIPPLE 02/11/2016 MUMTAZ MOYA [employer] MENDER Ot V58.69 OTH MED,LT,CURRENT USE 02/11/2016 MUMTAZ MOYA [employer] MENDER Ot V86.0 ESTROGEN RECEPTOR POSITIVE STATUS [ER+] 02/11/2016 MUMTAZ MOYA [employer] MENDER Ot V87.41 PERSONAL HISTORY OF ANTINEOPLASTIC CHEMO 02/11/2016 MUMTAZ MOYA [employer] MENDER Ot 174.9 MALIGN NEOPL BREAST NOS 02/11/2016 MUMTAZ MOYA [employer] MENDER Ot 397.0 TRICUSPID VALVE DISEASE 02/11/2016 MUMTAZ MOYA [employer] MENDER Ot 424.0 MITRAL VALVE DISORDER 02/11/2016 MUMTAZ MOYAP Ot V58.69 OTH MED,LT,CURRENT USE 02/11/2016 MUMTAZ MOYA [employer] M[employer]ER Ot V58.83 ENCOUNTER FOR THERAPEUTIC DRUG MONITORIN 02/11/2016 MUMTAZ MOYA [employer] MENDER Ot V87.41 PERSONAL HISTORY OF ANTINEOPLASTIC CHEMO 02/11/2016 MUMTAZ MOYA [employer] MENDER Ot 174.9 MALIGN NEOPL BREAST NOS 02/11/2016 MUMTAZ MOYA [employer] MENDER Ot 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 02/11/2016 MUMTAZ MOYA [employer] MENDER Ot V15.3 HX OF IRRADIATION 02/11/2016 MUMTAZ MOYA [employer] MENDER Ot V16.41 FAM HX-MAL NEOP-OVARY 02/11/2016 MUMTAZ MOYA [employer] MENDER Ot V45.71 ACQUIRED ABSENCE OF BREAST AND NIPPLE 02/11/2016 MUMTAZ MOYAP Ot V58.69 OTH MED,LT,CURRENT USE 02/11/2016 MUMTAZ MOYA [employer] M[employer]ER Ot V86.0 ESTROGEN RECEPTOR POSITIVE STATUS [ER+] 02/11/2016 MUMTAZ MOYA [employer] MENDER Ot V87.41 PERSONAL HISTORY OF ANTINEOPLASTIC CHEMO 02/11/2016 MUMTAZ MOYA [employer] MENDER Ot 174.9 MALIGN NEOPL BREAST NOS 02/11/2016 MUMTAZ MOYA [employer] MENDER Ot 793.11 SOLITARY PULMONARY NODULE 02/11/2016 Ot 174.4 MAL PAWEL BREAST UP-OUTER 02/11/2016 Ot 196.3 MAL PAWEL LYMPH -AXILLA/ARM 02/11/2016 Ot V58.11 ENCOUNTER FOR ANTINEOPLASTIC CHEMOTHERAP 02/11/2016 Ot V58.69 OTH MED,LT, CURRENT USE 02/11/2016 Ot V86.0 ESTROGEN RECEPTOR POSITIVE STATUS [ER+] 02/11/2016 MUMTAZ MOYA [employer] M[employer]ER Ot 174.9 MALIGN NEOPL BREAST NOS 02/11/2016 MUMTAZ MOYA [employer] MENDER Ot 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 02/11/2016 GRIFFIN MUMTAZ Tenorio [employer] M[employer]ER Ot V15.3 HX OF IRRADIATION 02/11/2016 DC MOYARICHARD Tenorio [employer] M[employer]ER Ot V16.41 FAM HX-MAL NEOP-OVARY 02/11/2016 MOYA MUMTAZ Tenorio [employer] MENDER Ot V45.71 ACQUIRED ABSENCE OF BREAST AND NIPPLE 02/11/2016 MUMTAZ MOYA [employer] MENDER Ot V58.69 OTH MED,LT,CURRENT USE 02/11/2016 DC MOYARICHARD Tenorio [employer] M[employer] Ot V86.0 ESTROGEN RECEPTOR POSITIVE STATUS [ER+] 02/11/2016 GRIFFIN MUMTAZ Tenorio [employer] MENDER Ot V87.41 PERSONAL HISTORY OF ANTINEOPLASTIC CHEMO 02/11/2016 MUMTAZ MOYA [employer] MENDER Ot 174.9 MALIGN NEOPL BREAST NOS 02/11/2016 MUMTAZ MOYA [employer] MENDER Ot 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 02/11/2016 DC MOYARICHARD Coby [employer] MENDER Ot V15.3 HX OF IRRADIATION 02/11/2016 DC MOYARICHARD Tenorio [employer] MENDER Ot V16.41 FAM HX-MAL NEOP-OVARY 02/11/2016 MOYA MUMTAZ Tenorio [employer] MENDER Ot V45.71 ACQUIRED ABSENCE OF BREAST AND NIPPLE 02/11/2016 DC MOYARICHARD Coby [employer] M[employer]ER Ot V58.69 OTH MED,LT,CURRENT USE 02/11/2016 GRIFFIN MUMTAZ Tenorio [employer] Ot V86.0 ESTROGEN RECEPTOR POSITIVE STATUS [ER+] 02/11/2016 MUMTAZ MOYA [employer] M[employer] Ot V87.41 PERSONAL HISTORY OF ANTINEOPLASTIC CHEMO 02/11/2016 MUMTAZ MOYA [employer] M[employer] Ot 174.9 MALIGN NEOPL BREAST NOS 02/11/2016 MUMTAZ MOYA [employer] M[employer] Ot 174.9 MALIGN NEOPL BREAST NOS 02/11/2016 MUMTAZ MOYA [employer] M[employer] Ot 793.11 SOLITARY PULMONARY NODULE 02/11/2016 ADRI GREEN, MADELINE Jackson Ot 174.9 MALIGN NEOPL BREAST NOS 02/11/2016 MADELINE IVAN MD Ot 244.9 HYPOTHYROIDISM NOS 02/11/2016 MADELINE IVAN MD Ot 397.0 TRICUSPID VALVE DISEASE 02/11/2016 MADELINE IVAN MD Ot 401.9 HYPERTENSION NOS 02/11/2016 ADRI GREEN, MADELINE Jackson Ot 424.0 MITRAL VALVE DISORDER 02/11/2016 MADELINE IVAN MD Ot 782.3 EDEMA 02/11/2016 MUMTAZ MOYA [employer] Ot 174.9 MALIGN NEOPL BREAST NOS 02/11/2016 FILI KAREEM Humphreys Ot 174.9 MALIGN NEOPL BREAST NOS 02/11/2016 FILI KAREEM Humphreys Ot 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 02/11/2016 FILI KAREEM Humphreys Ot V15.3 HX OF IRRADIATION 02/11/2016 KAREEM PENN Petr Ot V45.71 ACQUIRED ABSENCE OF BREAST AND NIPPLE 02/11/2016 KAREEM PENN Petr Ot V58.69 OTH MED,LT,CURRENT USE 02/11/2016 KAREEM PENN Petr Ot V86.0 ESTROGEN RECEPTOR POSITIVE STATUS [ER+] 02/11/2016 KAREEM EPNN Petr Ot V87.41 PERSONAL HISTORY OF ANTINEOPLASTIC CHEMO 02/11/2016 MUMTAZ MOYA [employer] M[employer] Ot 174.9 MALIGN NEOPL BREAST NOS 02/11/2016 MUMTAZ MOYA [employer] M[employer]ER Ot 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 02/11/2016 MUMTAZ MOYA [employer] MENDER Ot 250.00 DIAB NESTOR WO COMPL, TYPE II OR UNSPEC TY 02/11/2016 MUMTAZ MOYA [employer] MENDER Ot 305.1 TOBACCO USE DISORDER 02/11/2016 MUMTAZ MOYA [employer] MENDER Ot V15.3 HX OF IRRADIATION 02/11/2016 MUMTAZ MOYA [employer] MENDER Ot V45.71 ACQUIRED ABSENCE OF BREAST AND NIPPLE 02/11/2016 MUMTAZ MOYA [employer] MENDER Ot V58.67 LONG-TERM (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 OF INSULIN 02/11/2016 MUMTAZ MOYA [employer] MENDER Ot V58.69 OTH MED,LT,CURRENT USE 02/11/2016 MUMTAZ MOYA [employer] MENDER Ot V86.0 ESTROGEN RECEPTOR POSITIVE STATUS [ER+] 02/11/2016 MUMTAZ MOYA [employer] MENDER Ot V87.41 PERSONAL HISTORY OF ANTINEOPLASTIC CHEMO 02/11/2016 MUMTAZ MOYA [employer] MENDER Ot 611.72 LUMP OR MASS IN BREAST 02/11/2016 MUMTAZ MOYA [employer] MENDER Ot 793.11 SOLITARY PULMONARY NODULE 02/11/2016 MUMTAZ MOYA [employer] MENDER Ot V10.3 HX OF BREAST MALIGNANCY 02/11/2016 MUMTAZ MOYA [employer] MENDER Ot V45.71 ACQUIRED ABSENCE OF BREAST AND NIPPLE 02/11/2016 MUMTAZ MOYA [employer] MENDER Ot V84.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 02/11/2016 MUMTAZ MOYA [employer] MENDER Ot 174.9 MALIGN NEOPL BREAST NOS 02/11/2016 MUMTAZ MOYA [employer] MENDER Ot 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 02/11/2016 MUMTAZ MOYA [employer] MENDER Ot 250.00 DIAB NESTOR WO COMPL, TYPE II OR UNSPEC TY 02/11/2016 MUMTAZ MOYA [employer] MENDER Ot 305.1 TOBACCO USE DISORDER 02/11/2016 MUMTAZ MOYA [employer] MENDER Ot 733.90 BONE CARTILAGE DIS NOS 02/11/2016 MUMTAZ MOYA [employer] MENDER Ot V15.3 HX OF IRRADIATION 02/11/2016 MUMTAZ MOYA [employer] MENDER Ot V45.71 ACQUIRED ABSENCE OF BREAST AND NIPPLE 02/11/2016 MUMTAZ MOYA [employer] MENDER Ot V58.67 LONG-TERM (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 OF INSULIN 02/11/2016 MUMTAZ MOYA [employer] MENDER Ot V58.69 OTH MED,LT,CURRENT USE 02/11/2016 MUMTAZ MOYA [employer] MENDER Ot V86.0 ESTROGEN RECEPTOR POSITIVE STATUS [ER+] 02/11/2016 MUMTAZ MOYA Coby [employer] Ot V87.41 PERSONAL HISTORY OF ANTINEOPLASTIC CHEMO 02/11/2016 MUMTAZ MOYA [employer] MENDER Ot 174.9 MALIGN NEOPL BREAST NOS 02/11/2016 MUMTAZ MOYA [employer] MENDER Ot 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 02/11/2016 MUMTAZ MOYA [employer] MENDER Ot 733.90 BONE CARTILAGE DIS NOS 02/11/2016 MUMTAZ MOYA [employer] MENDER Ot 793.11 SOLITARY PULMONARY NODULE 02/11/2016 MUMTAZ MOYA [employer] MENDER Ot V84.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 02/11/2016 ENDER PAZ Ot E10.9 TYPE 1 DIABETES MELLITUS WITHOUT COMPLIC 02/11/2016 ENDER PAZ Ot E66.8 OTHER OBESITY 02/11/2016 ENDER PAZ Ot I10 ESSENTIAL (PRIMARY) HYPERTENSION 02/11/2016 ENDER PAZ Ot R60.9 EDEMA, UNSPECIFIED 02/11/2016 JASPER GREEN, MARK Willoughby Ot M06.9 RHEUMATOID ARTHRITIS, UNSPECIFIED 02/11/2016 MUMTAZ MOYA [employer] MENDER Ot C50.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 02/11/2016 MUMTAZ MOYA [employer] MENDER Ot C77.3 SEC AND UNSP MALIG NEOPLASM OF AXILLA AN 02/11/2016 MUMTAZ MOYAP Ot M85.80 OTH DISRD OF BONE DENSITY AND STRUCTURE, 02/11/2016 MUMTAZ MOYA [employer] MENDER Ot Z15.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 02/11/2016 MUMTAZ MOYA [employer] MENDER Ot Z17.0 ESTROGEN RECEPTOR POSITIVE STATUS [ER+] 02/11/2016 MUMTAZ MOYA [employer] MENDER Ot Z79.811 [facility] (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 OF AROMATASE INH 02/11/2016 MUMTAZ MOYA S [employer] MENDER Ot Z90.11 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 02/11/2016 MUMTAZ MOYA S [employer] Ot Z92.3 PERSONAL HISTORY OF IRRADIATION 02/11/2016 KAREEM PENN Ot 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 02/11/2016 KAREEM PENN Ot C77.3 SEC AND UNSP MALIG NEOPLASM OF AXILLA AN 02/11/2016 KAREEM PENN Ot M85.80 OTH DISRD OF BONE DENSITY AND STRUCTURE, 02/11/2016 KAREEM PENN Ot R10.11 RIGHT UPPER QUADRANT PAIN 02/11/2016 KAREEM PENN Ot Z17.0 ESTROGEN RECEPTOR POSITIVE STATUS [ER+] 02/11/2016 KAREEM PENN Ot Z79.811 [facility] (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 OF AROMATASE INH 02/11/2016 KAREEM PENN Ot Z90.11 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 02/11/2016 KAREEM PENN Ot Z92.3 PERSONAL HISTORY OF IRRADIATION 02/11/2016 MUMTAZ MOYA [employer] Ot 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 02/11/2016 GRIFFINMUMTAZ [employer] MENDER Ot 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 02/11/2016 GRIFFINMUMTAZ [employer] M[employer]ER Ot C77.3 SEC AND UNSP MALIG NEOPLASM OF AXILLA AN 02/11/2016 MOYAMUMTAZ Tenorio Ot M85.80 OTH DISRD OF BONE DENSITY AND STRUCTURE, 02/11/2016 MOYAMUMTAZ TenorioP Ot Z17.0 ESTROGEN RECEPTOR POSITIVE STATUS [ER+] 02/11/2016 MOYAMUMTAZ Tenorio [employer] Ot Z79.811 [facility]CI (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 OF AROMATASE INH 02/11/2016 MOYAMUMTAZP Ot Z90.11 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 02/11/2016 GRIFFINMUMTAZP Ot Z92.3 PERSONAL HISTORY OF IRRADIATION 02/12/2016 Ot 611.72 LUMP OR MASS IN BREAST 02/12/2016 Ot 793.81 MAMMOGRAPHIC MICROCLACIFICATION 02/12/2016 Ot 174.9 MALIGN NEOPL BREAST NOS 02/12/2016 Ot V58.69 OTH MED,LT, CURRENT USE 02/12/2016 Ot 174.4 MAL PAWEL BREAST UP-OUTER 02/12/2016 Ot 196.3 MAL PAWEL LYMPH -AXILLA/ARM 02/12/2016 Ot V58.11 ENCOUNTER FOR ANTINEOPLASTIC CHEMOTHERAP 02/12/2016 Ot V58.69 OTH MED,LT, CURRENT USE 02/12/2016 Ot V86.0 ESTROGEN RECEPTOR POSITIVE STATUS [ER+] 02/12/2016 Ot 174.9 MALIGN NEOPL BREAST NOS 02/12/2016 Ot 276.69 OTHER FLUID OVERLOAD 02/12/2016 Ot 397.0 TRICUSPID VALVE DISEASE 02/12/2016 Ot 424.0 MITRAL VALVE DISORDER 02/12/2016 Ot V58.69 OTH MED,LT, CURRENT USE 02/12/2016 Ot V58.83 ENCOUNTER FOR THERAPEUTIC DRUG MONITORIN 02/12/2016 Ot V87.41 PERSONAL HISTORY OF ANTINEOPLASTIC CHEMO 02/12/2016 Ot 174.9 MALIGN NEOPL BREAST NOS 02/12/2016 Ot V58.69 OTH MED,LT, CURRENT USE 02/12/2016 Ot V87.41 PERSONAL HISTORY OF ANTINEOPLASTIC CHEMO 02/12/2016 Ot V58.69 OTH MED,LT, CURRENT USE 02/12/2016 Ot V58.83 ENCOUNTER FOR THERAPEUTIC DRUG MONITORIN 02/12/2016 Ot 428.0 CONGESTIVE HEART FAILURE NOS 02/12/2016 KAREEM PENN N Ot 996.74 OT COMPL DUE TO OT VASCULAR DEVICE,IMP 02/12/2016 KEY JOSE [employer]ER Ot 729.5 PAIN IN LIMB 02/12/2016 DEVINEUGENIO FRIED [employer]ER Ot 729.5 PAIN IN LIMB 02/12/2016 EUGENIO BELTRAN [employer] Ot 729.81 SWELLING OF LIMB 02/12/2016 MUMTAZ MOYA [employer] Ot 174.4 MAL PAWEL BREAST UP-OUTER 02/12/2016 MUMTAZ MOYA [employer] M[employer]ER Ot 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 02/12/2016 MUMTAZ MOYA [employer] M[employer]ER Ot 250.00 DIAB NESTOR WO COMPL, TYPE II OR UNSPEC TY 02/12/2016 MUMTAZ MOYA [employer] M[employer] Ot 782.3 EDEMA 02/12/2016 MUMTAZ MOYA [employer] M[employer]ER Ot V45.71 ACQUIRED ABSENCE OF BREAST AND NIPPLE 02/12/2016 MUMTAZ MOYA [employer] M[employer] Ot V58.67 LONG-TERM (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 OF INSULIN 02/12/2016 MUMTAZ MOYA [employer] M[employer] Ot V58.69 OT MED,LT,CURRENT USE 02/12/2016 MUMTAZ MOYA [employer] M[employer] Ot V86.0 ESTROGEN RECEPTOR POSITIVE STATUS [ER+] 02/12/2016 MUMTAZ MOYA [employer] M[employer]ER Ot 397.0 TRICUSPID VALVE DISEASE 02/12/2016 MUMTAZ MOYA [employer] MENDER Ot 424.0 MITRAL VALVE DISORDER 02/12/2016 MUMTAZ MOYA [employer] M[employer]ER Ot 782.3 EDEMA 02/12/2016 MUMTAZ MOYA [employer] M[employer]ER Ot V58.69 OTH MED,LT,CURRENT USE 02/12/2016 MUMTAZ MOYA [employer] M[employer]ER Ot V58.83 ENCOUNTER FOR THERAPEUTIC DRUG MONITORIN 02/12/2016 MUMTAZ MOYA [employer] M[employer]ER Ot V87.41 PERSONAL HISTORY OF ANTINEOPLASTIC CHEMO 02/12/2016 MUMTAZ MOYA [employer] M[employer]ER Ot 174.4 MAL PAWEL BREAST UP-OUTER 02/12/2016 MUMTAZ MOYA [employer] M[employer]ER Ot 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 02/12/2016 MUMTAZ MOYA [employer] MENDER Ot 250.00 DIAB NESTOR WO COMPL, TYPE II OR UNSPEC TY 02/12/2016 MUMTAZ MOYA [employer] M[employer]ER Ot 457.1 OTHER LYMPHEDEMA 02/12/2016 MUMTAZ MOYA [employer] M[employer]ER Ot 782.3 EDEMA 02/12/2016 MUMTAZ MOYA [employer] M[employer]ER Ot V45.71 ACQUIRED ABSENCE OF BREAST AND NIPPLE 02/12/2016 MUMTAZ MOYA [employer] M[employer]ER Ot V58.67 LONG-TERM (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 OF INSULIN 02/12/2016 MUMTAZ MOYA [employer] M[employer]ER Ot V58.69 OTH MED,LT,CURRENT USE 02/12/2016 MUMTAZ MOYA [employer] M[employer]ER Ot V86.0 ESTROGEN RECEPTOR POSITIVE STATUS [ER+] 02/12/2016 MUMTAZ MOYA [employer] M[employer]ER Ot 174.4 MAL PAWEL BREAST UP-OUTER 02/12/2016 MUMTAZ MOYA [employer] M[employer]ER Ot 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 02/12/2016 MUMTAZ MOYA [employer] M[employer]ER Ot 250.00 DIAB NESTOR WO COMPL, TYPE II OR UNSPEC TY 02/12/2016 MUMTAZ MOYA [employer] M[employer]ER Ot V45.71 ACQUIRED ABSENCE OF BREAST AND NIPPLE 02/12/2016 MUMTAZ MOYA [employer] M[employer]ER Ot V58.67 LONG-TERM (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 OF INSULIN 02/12/2016 MUMTAZ MOYA [employer] M[employer] Ot V58.69 OTH MED,LT,CURRENT USE 02/12/2016 MUMTAZ MOYA [employer] M[employer]ER Ot V86.0 ESTROGEN RECEPTOR POSITIVE STATUS [ER+] 02/12/2016 MUMTAZ MOYA [employer] M[employer]ER Ot 174.9 MALIGN NEOPL BREAST NOS 02/12/2016 MUMTAZ MOYA [employer] MENDER Ot 397.0 TRICUSPID VALVE DISEASE 02/12/2016 MUMTAZ MOYA [employer] MENDER Ot 424.0 MITRAL VALVE DISORDER 02/12/2016 MUMTAZ MOYA [employer] M[employer]ER Ot 733.90 BONE CARTILAGE DIS NOS 02/12/2016 MUMTAZ MOYA [employer] M[employer]ER Ot V58.69 OTH MED,LT,CURRENT USE 02/12/2016 MUMTAZ MOYA [employer] M[employer] Ot 174.9 MALIGN NEOPL BREAST NOS 02/12/2016 MOYA, HILAH S [employer] MENDER Ot 250.00 DIAB NESTOR WO COMPL, TYPE II OR UNSPEC TY 02/12/2016 MUMTAZ MOYA S [employer] MENDER Ot 397.0 TRICUSPID VALVE DISEASE 02/12/2016 MUMTAZ MOYA [employer] MENDER Ot 424.0 MITRAL VALVE DISORDER 02/12/2016 MUMTAZ MOYA S [employer] M[employer]ER Ot 733.90 BONE CARTILAGE DIS NOS 02/12/2016 MUMTAZ MOYA S [employer] M[employer]ER Ot V45.71 ACQUIRED ABSENCE OF BREAST AND NIPPLE 02/12/2016 MUMTAZ MOYA S [employer] M[employer]ER Ot V58.67 LONG-TERM (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 OF INSULIN 02/12/2016 MUMTAZ MOYA S [employer] M[employer]ER Ot V58.69 OTH MED,LT,CURRENT USE 02/12/2016 MUMTAZ MOYA S [employer] M[employer]ER Ot V86.0 ESTROGEN RECEPTOR POSITIVE STATUS [ER+] 02/12/2016 MUMTAZ MOYA S [employer] M[employer]ER Ot 174.9 MALIGN NEOPL BREAST NOS 02/12/2016 MUMTAZ MOYA S [employer] M[employer]ER Ot 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 02/12/2016 DC MOYARICHARD S [employer] MENDER Ot 244.9 HYPOTHYROIDISM NOS 02/12/2016 DC MOYARICHARD S [employer] MENDER Ot 250.00 DIAB NESTOR WO COMPL, TYPE II OR UNSPEC TY 02/12/2016 MUMTAZ MOYA S [employer] M[employer]ER Ot V45.71 ACQUIRED ABSENCE OF BREAST AND NIPPLE 02/12/2016 MUMTAZ MOYA S [employer] MENDER Ot V58.67 LONG-TERM (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 OF INSULIN 02/12/2016 MUMTAZ MOYA S [employer] M[employer]ER Ot V58.69 OTH MED,LT,CURRENT USE 02/12/2016 MUMTAZ MOYA S [employer] M[employer]ER Ot V86.0 ESTROGEN RECEPTOR POSITIVE STATUS [ER+] 02/12/2016 MUMTAZ MOYA S [employer] MENDER Ot V87.41 PERSONAL HISTORY OF ANTINEOPLASTIC CHEMO 02/12/2016 MUMTAZ MOYA S [employer] M[employer]ER Ot 174.9 MALIGN NEOPL BREAST NOS 02/12/2016 DC MOYAAH S [employer] MENDER Ot 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 02/12/2016 MUMTAZ MOYA S [employer] M[employer]ER Ot 244.9 HYPOTHYROIDISM NOS 02/12/2016 MUMTAZ MOYA S [employer] MENDER Ot 250.00 DIAB NESTOR WO COMPL, TYPE II OR UNSPEC TY 02/12/2016 DC MOYARICHARD Coby [employer] M[employer]ER Ot V45.71 ACQUIRED ABSENCE OF BREAST AND NIPPLE 02/12/2016 MUMTAZ MOYA [employer] MENDER Ot V58.67 LONG-TERM (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 OF INSULIN 02/12/2016 MUMTAZ MOYA [employer] MENDER Ot V58.69 OTH MED,LT,CURRENT USE 02/12/2016 MUMTAZ MOYA [employer] M[employer]ER Ot V86.0 ESTROGEN RECEPTOR POSITIVE STATUS [ER+] 02/12/2016 MUMTAZ MOYA [employer] MENDER Ot V87.41 PERSONAL HISTORY OF ANTINEOPLASTIC CHEMO 02/12/2016 MUMTAZ MOYA [employer] M[employer]ER Ot 174.9 MALIGN NEOPL BREAST NOS 02/12/2016 MUMTAZ MOYA [employer] M[employer]ER Ot 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 02/12/2016 MUMTAZ MOYA [employer] MENDER Ot V15.3 HX OF IRRADIATION 02/12/2016 MUMTAZ MOYA [employer] MENDER Ot V45.71 ACQUIRED ABSENCE OF BREAST AND NIPPLE 02/12/2016 MUMTAZ MOYAP Ot V58.69 OTH MED,LT,CURRENT USE 02/12/2016 MUMTAZ MOYA [employer] M[employer]ER Ot V86.0 ESTROGEN RECEPTOR POSITIVE STATUS [ER+] 02/12/2016 MUMTAZ MOYA [employer] M[employer]ER Ot V87.41 PERSONAL HISTORY OF ANTINEOPLASTIC CHEMO 02/12/2016 MUMTAZ MOYA [employer] M[employer]ER Ot 174.9 MALIGN NEOPL BREAST NOS 02/12/2016 MUMTAZ MOYA [employer] MENDER Ot 397.0 TRICUSPID VALVE DISEASE 02/12/2016 MUMTAZ MOYA [employer] MENDER Ot 424.0 MITRAL VALVE DISORDER 02/12/2016 MUMTAZ MOYA [employer] MENDER Ot V58.69 OTH MED,LT,CURRENT USE 02/12/2016 MUMTAZ MOYA [employer] M[employer]ER Ot V58.83 ENCOUNTER FOR THERAPEUTIC DRUG MONITORIN 02/12/2016 MUMTAZ MOYA [employer] M[employer]ER Ot V87.41 PERSONAL HISTORY OF ANTINEOPLASTIC CHEMO 02/12/2016 MUMTAZ MOYA [employer] M[employer]ER Ot 174.9 MALIGN NEOPL BREAST NOS 02/12/2016 MUMTAZ MOYA [employer] M[employer]ER Ot 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 02/12/2016 MUMTAZ MOYA [employer] MENDER Ot V15.3 HX OF IRRADIATION 02/12/2016 MUMTAZ MOYA [employer] MENDER Ot V16.41 FAM HX-MAL NEOP-OVARY 02/12/2016 MUMTAZ MOYA [employer] MENDER Ot V45.71 ACQUIRED ABSENCE OF BREAST AND NIPPLE 02/12/2016 MUMTAZ MOYA [employer] MENDER Ot V58.69 OTH MED,LT,CURRENT USE 02/12/2016 MUMTAZ MOYA [employer] MENDER Ot V86.0 ESTROGEN RECEPTOR POSITIVE STATUS [ER+] 02/12/2016 MUMTAZ MOYA [employer] MENDER Ot V87.41 PERSONAL HISTORY OF ANTINEOPLASTIC CHEMO 02/12/2016 MUMTAZ MOYA [employer] MENDER Ot 174.9 MALIGN NEOPL BREAST NOS 02/12/2016 MUMTAZ MOYA [employer] MENDER Ot 793.11 SOLITARY PULMONARY NODULE 02/12/2016 Ot 174.4 MAL PAWEL BREAST UP-OUTER 02/12/2016 Ot 196.3 MAL PAWEL LYMPH -AXILLA/ARM 02/12/2016 Ot V58.11 ENCOUNTER FOR ANTINEOPLASTIC CHEMOTHERAP 02/12/2016 Ot V58.69 OTH MED,LT, CURRENT USE 02/12/2016 Ot V86.0 ESTROGEN RECEPTOR POSITIVE STATUS [ER+] 02/12/2016 MUMTAZ MOYA [employer] M[employer]ER Ot 174.9 MALIGN NEOPL BREAST NOS 02/12/2016 MUMTAZ MOYA [employer] MENDER Ot 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 02/12/2016 MUMTAZ MOYA [employer] MENDER Ot V15.3 HX OF IRRADIATION 02/12/2016 MUMTAZ MOYA [employer] MENDER Ot V16.41 FAM HX-MAL NEOP-OVARY 02/12/2016 MUMTAZ MOYA [employer] MENDER Ot V45.71 ACQUIRED ABSENCE OF BREAST AND NIPPLE 02/12/2016 MUMTAZ MOYA [employer] MENDER Ot V58.69 OTH MED,LT,CURRENT USE 02/12/2016 MUMTAZ MOYA [employer] MENDER Ot V86.0 ESTROGEN RECEPTOR POSITIVE STATUS [ER+] 02/12/2016 MUMTAZ MOYA [employer] MENDER Ot V87.41 PERSONAL HISTORY OF ANTINEOPLASTIC CHEMO 02/12/2016 MUMTAZ MOYA [employer] MENDER Ot 174.9 MALIGN NEOPL BREAST NOS 02/12/2016 MUMTAZ MOYA [employer] MENDER Ot 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 02/12/2016 GRIFFIN MUMTAZ Tenorio [employer] M[employer]ER Ot V15.3 HX OF IRRADIATION 02/12/2016 GRIFFINMUMTAZ [employer] MENDER Ot V16.41 FAM HX-MAL NEOP-OVARY 02/12/2016 MOYAMUMTAZ Tenorio [employer] MENDER Ot V45.71 ACQUIRED ABSENCE OF BREAST AND NIPPLE 02/12/2016 MOYAMUMTAZ Tenorio [employer] MENDER Ot V58.69 OTH MED,LT,CURRENT USE 02/12/2016 MOYAMUMTAZ Tenorio [employer] MENDER Ot V86.0 ESTROGEN RECEPTOR POSITIVE STATUS [ER+] 02/12/2016 MOYAMUTMAZ Tenorio [employer] MENDER Ot V87.41 PERSONAL HISTORY OF ANTINEOPLASTIC CHEMO 02/12/2016 DC MOYARICHARD Tenorio [employer] M[employer]ER Ot 174.9 MALIGN NEOPL BREAST NOS 02/12/2016 MOYAMUMTAZ Tenorio [employer] MENDER Ot 174.9 MALIGN NEOPL BREAST NOS 02/12/2016 MOYA MUMTAZ Tenorio [employer] MENDER Ot 793.11 SOLITARY PULMONARY NODULE 02/12/2016 ADRI GREEN, MADELINE J Ot 174.9 MALIGN NEOPL BREAST NOS 02/12/2016 ADRI GREEN, DARCIEHAR J Ot 244.9 HYPOTHYROIDISM NOS 02/12/2016 ADRI GREEN, DARCIEHAR J Ot 397.0 TRICUSPID VALVE DISEASE 02/12/2016 ADRI GREEN, MADELINE J Ot 401.9 HYPERTENSION NOS 02/12/2016 ADRI GREEN, BASHAR J Ot 424.0 MITRAL VALVE DISORDER 02/12/2016 ADRI GREEN, MADELINE J Ot 782.3 EDEMA 02/12/2016 MUMTAZ MOYA [employer] M[employer]ER Ot 174.9 MALIGN NEOPL BREAST NOS 02/12/2016 KAREEM PENN Ot 174.9 MALIGN NEOPL BREAST NOS 02/12/2016 KAREEM PENN Ot 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 02/12/2016 KAREEM PENN Ot V15.3 HX OF IRRADIATION 02/12/2016 KAREEM PENN Ot V45.71 ACQUIRED ABSENCE OF BREAST AND NIPPLE 02/12/2016 KAREEM PENN Ot V58.69 OTH MED,LT,CURRENT USE 02/12/2016 KAREEM PENN Ot V86.0 ESTROGEN RECEPTOR POSITIVE STATUS [ER+] 02/12/2016 FILI, BOBAN N Ot V87.41 PERSONAL HISTORY OF ANTINEOPLASTIC CHEMO 02/12/2016 MUMTAZ MOYA [employer] MENDER Ot 174.9 MALIGN NEOPL BREAST NOS 02/12/2016 MUMTAZ MOYA [employer] MENDER Ot 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 02/12/2016 MUMTAZ MOAY S [employer] MENDER Ot 250.00 DIAB NESTOR WO COMPL, TYPE II OR UNSPEC TY 02/12/2016 MUMTAZ MOYA S [employer] MENDER Ot 305.1 TOBACCO USE DISORDER 02/12/2016 MUMTAZ MOYA [employer] MENDER Ot V15.3 HX OF IRRADIATION 02/12/2016 MUMTAZ MOYA [employer] MENDER Ot V45.71 ACQUIRED ABSENCE OF BREAST AND NIPPLE 02/12/2016 MUMTAZ MOYA [employer] MENDER Ot V58.67 LONG-TERM (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 OF INSULIN 02/12/2016 MUMTAZ MOYA [employer] MENDER Ot V58.69 OTH MED,LT,CURRENT USE 02/12/2016 MUMTAZ MOYA [employer] MENDER Ot V86.0 ESTROGEN RECEPTOR POSITIVE STATUS [ER+] 02/12/2016 MUMTAZ MOYA [employer] MENDER Ot V87.41 PERSONAL HISTORY OF ANTINEOPLASTIC CHEMO 02/12/2016 MUMTAZ MOYA [employer] MENDER Ot 611.72 LUMP OR MASS IN BREAST 02/12/2016 MUMTAZ MOYA [employer] MENDER Ot 793.11 SOLITARY PULMONARY NODULE 02/12/2016 MUMTAZ MOYA [employer] MENDER Ot V10.3 HX OF BREAST MALIGNANCY 02/12/2016 MUMTAZ MOYA [employer] MENDER Ot V45.71 ACQUIRED ABSENCE OF BREAST AND NIPPLE 02/12/2016 MUMTAZ MOYA [employer] MENDER Ot V84.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 02/12/2016 MUMTAZ MOYA [employer] MENDER Ot 174.9 MALIGN NEOPL BREAST NOS 02/12/2016 MUMTAZ MOYA [employer] MENDER Ot 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 02/12/2016 MUMTAZ MOYA [employer] MENDER Ot 250.00 DIAB NESTOR WO COMPL, TYPE II OR UNSPEC TY 02/12/2016 MUMTAZ MOYA S [employer] MENDER Ot 305.1 TOBACCO USE DISORDER 02/12/2016 MUMTAZ MOYA [employer] MENDER Ot 733.90 BONE CARTILAGE DIS NOS 02/12/2016 MUMTAZ MOYA [employer] MENDER Ot V15.3 HX OF IRRADIATION 02/12/2016 GRIFFINMUMTAZ K[employer]IT GOODS MENDER Ot V45.71 ACQUIRED ABSENCE OF BREAST AND NIPPLE 02/12/2016 GRIFFIN MUMTAZ Tenorio [employer] MENDER Ot V58.67 LONG-TERM (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 OF INSULIN 02/12/2016 MOYAMUMTAZP Ot V58.69 OTH MED,LT,CURRENT USE 02/12/2016 GRIFFIN MUMTAZ Tenorio [employer] MENDER Ot V86.0 ESTROGEN RECEPTOR POSITIVE STATUS [ER+] 02/12/2016 GRIFFIN MUMTAZ Tenorio [employer] MENDER Ot V87.41 PERSONAL HISTORY OF ANTINEOPLASTIC CHEMO 02/12/2016 GRIFFIN MUMTAZ Tenorio [employer] M[employer]ER Ot 174.9 MALIGN NEOPL BREAST NOS 02/12/2016 GRIFFIN MUMTAZ Tenorio [employer] MENDER Ot 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 02/12/2016 GRIFFIN MUMTAZ Tenorio [employer] MENDER Ot 733.90 BONE CARTILAGE DIS NOS 02/12/2016 GRIFFIN MUMTAZ LYNNP Ot 793.11 SOLITARY PULMONARY NODULE 02/12/2016 GRIFFIN MUMTAZ Tenorio [employer] M[employer]ER Ot V84.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 02/12/2016 ENDER PAZ Ot E10.9 TYPE 1 DIABETES MELLITUS WITHOUT COMPLIC 02/12/2016 ENDER PAZ Ot E66.8 OTHER OBESITY 02/12/2016 ENDER PAZ Ot I10 ESSENTIAL (PRIMARY) HYPERTENSION 02/12/2016 ENDER PAZ Ot R60.9 EDEMA, UNSPECIFIED 02/12/2016 JASPER GREEN, MARK [place] Ot M06.9 RHEUMATOID ARTHRITIS, UNSPECIFIED 02/12/2016 GRIFFIN MUMTAZ Tenorio [employer] MENDER Ot C50.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 02/12/2016 MUMTAZ MOYAP Ot C77.3 SEC AND UNSP MALIG NEOPLASM OF AXILLA AN 02/12/2016 MUMTAZ MOYA [employer] MENDER Ot M85.80 OTH DISRD OF BONE DENSITY AND STRUCTURE, 02/12/2016 MUMTAZ MOYA Coby [employer] MENDER Ot Z15.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 02/12/2016 DC MOYARICHARD Tenorio [employer] M[employer]ER Ot Z17.0 ESTROGEN RECEPTOR POSITIVE STATUS [ER+] 02/12/2016 MUMTAZ MOYA [employer] MENDER Ot Z79.811 [facility] (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 OF AROMATASE INH 02/12/2016 MUMTAZ MOYA [employer] MENDER Ot Z90.11 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 02/12/2016 MUMTAZ MOYA [employer] MENDER Ot Z92.3 PERSONAL HISTORY OF IRRADIATION 02/12/2016 KAREEM PENN Ot 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 02/12/2016 KAREEM PENN Ot C77.3 SEC AND UNSP MALIG NEOPLASM OF AXILLA AN 02/12/2016 KAREEM PENN Ot M85.80 OTH DISRD OF BONE DENSITY AND STRUCTURE, 02/12/2016 KAREEM PENN Ot R10.11 RIGHT UPPER QUADRANT PAIN 02/12/2016 KAREEM PENN Petr Ot Z17.0 ESTROGEN RECEPTOR POSITIVE STATUS [ER+] 02/12/2016 KAREEM PENN Petr Ot 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 02/12/2016 KAREEM PENN Petr Ot Z90.11 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 02/12/2016 KAREEM PENN Ot Z92.3 PERSONAL HISTORY OF IRRADIATION 02/12/2016 MUMTAZ MOYAP Ot 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 02/12/2016 MUMTAZ MOYA [employer] M[employer]ER Ot 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 02/12/2016 MUMTAZ MOYAP Ot C77.3 SEC AND UNSP MALIG NEOPLASM OF AXILLA AN 02/12/2016 MUMTAZ MYOAP Ot M85.80 OTH DISRD OF BONE DENSITY AND STRUCTURE, 02/12/2016 MUMTAZ MOYA [employer] M[employer]ER Ot Z17.0 ESTROGEN RECEPTOR POSITIVE STATUS [ER+] 02/12/2016 MUMTAZ MOYA [employer] MENDER Ot Z79.811 [facility] (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 OF AROMATASE INH 02/12/2016 MUMTAZ MOYA [employer] MENDER Ot Z90.11 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 02/12/2016 MUMTAZ MOYA [employer] MENDER Ot Z92.3 PERSONAL HISTORY OF IRRADIATION 02/26/2016 Ot 611.72 LUMP OR MASS IN BREAST 02/26/2016 Ot 793.81 MAMMOGRAPHIC MICROCLACIFICATION 02/26/2016 Ot 174.9 MALIGN NEOPL BREAST NOS 02/26/2016 Ot V58.69 OTH MED,LT, CURRENT USE 02/26/2016 Ot 174.4 MAL PAWEL BREAST UP-OUTER 02/26/2016 Ot 196.3 MAL PAWEL LYMPH -AXILLA/ARM 02/26/2016 Ot V58.11 ENCOUNTER FOR ANTINEOPLASTIC CHEMOTHERAP 02/26/2016 Ot V58.69 OTH MED,LT, CURRENT USE 02/26/2016 Ot V86.0 ESTROGEN RECEPTOR POSITIVE STATUS [ER+] 02/26/2016 Ot 174.9 MALIGN NEOPL BREAST NOS 02/26/2016 Ot 276.69 OTHER FLUID OVERLOAD 02/26/2016 Ot 397.0 TRICUSPID VALVE DISEASE 02/26/2016 Ot 424.0 MITRAL VALVE DISORDER 02/26/2016 Ot V58.69 OTH MED,LT, CURRENT USE 02/26/2016 Ot V58.83 ENCOUNTER FOR THERAPEUTIC DRUG MONITORIN 02/26/2016 Ot V87.41 PERSONAL HISTORY OF ANTINEOPLASTIC CHEMO 02/26/2016 Ot 174.9 MALIGN NEOPL BREAST NOS 02/26/2016 Ot V58.69 OTH MED,LT, CURRENT USE 02/26/2016 Ot V87.41 PERSONAL HISTORY OF ANTINEOPLASTIC CHEMO 02/26/2016 Ot V58.69 OTH MED,LT, CURRENT USE 02/26/2016 Ot V58.83 ENCOUNTER FOR THERAPEUTIC DRUG MONITORIN 02/26/2016 Ot 428.0 CONGESTIVE HEART FAILURE NOS 02/26/2016 KAREEM PENN N Ot 996.74 OT COMPL DUE TO [facility] VASCULAR DEVICE,IMP 02/26/2016 KEY JOSE [employer] MENDER Ot 729.5 PAIN IN LIMB 02/26/2016 EUGENIO BELTRAN [employer]ER Ot 729.5 PAIN IN LIMB 02/26/2016 EUGENIO BELTRAN [employer] MENDER Ot 729.81 SWELLING OF LIMB 02/26/2016 MUMTAZ MOYA [employer] M[employer]ER Ot 174.4 MAL PAWEL BREAST UP-OUTER 02/26/2016 MUMTAZ MOYA [employer] MENDER Ot 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 02/26/2016 MUMTAZ MOYA [employer] MENDER Ot 250.00 DIAB NESTOR WO COMPL, TYPE II OR UNSPEC TY 02/26/2016 MUMTAZ MOYA [employer] MENDER Ot 782.3 EDEMA 02/26/2016 MUMTAZ MOYA [employer] MENDER Ot V45.71 ACQUIRED ABSENCE OF BREAST AND NIPPLE 02/26/2016 MUMTAZ MOYA [employer] MENDER Ot V58.67 LONG-TERM (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 OF INSULIN 02/26/2016 MUMTAZ MOYA [employer] MENDER Ot V58.69 OTH MED,LT,CURRENT USE 02/26/2016 MUMTAZ MOYA [employer] MENDER Ot V86.0 ESTROGEN RECEPTOR POSITIVE STATUS [ER+] 02/26/2016 MUMTAZ MOYA [employer] M[employer] Ot 397.0 TRICUSPID VALVE DISEASE 02/26/2016 MUMTAZ MOYA [employer] Ot 424.0 MITRAL VALVE DISORDER 02/26/2016 MUMTAZ MOYAP Ot 782.3 EDEMA 02/26/2016 MUMTAZ MOYA Ot V58.69 OTH MED,LT,CURRENT USE 02/26/2016 MUMTAZ MOYA [employer] Ot V58.83 ENCOUNTER FOR THERAPEUTIC DRUG MONITORIN 02/26/2016 MUMTAZ MOYA [employer] Ot V87.41 PERSONAL HISTORY OF ANTINEOPLASTIC CHEMO 02/26/2016 MUMTAZ MOYA [employer] Ot 174.4 MAL PAWEL BREAST UP-OUTER 02/26/2016 MUMTAZ MOYA [employer] Ot 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 02/26/2016 MUMTAZ MOYA [employer] Ot 250.00 DIAB NESTOR WO COMPL, TYPE II OR UNSPEC TY 02/26/2016 MUMTAZ MOYA [employer] Ot 457.1 OTHER LYMPHEDEMA 02/26/2016 MUMTAZ MOYA [employer] Ot 782.3 EDEMA 02/26/2016 MUMTAZ MOYA [employer] Ot V45.71 ACQUIRED ABSENCE OF BREAST AND NIPPLE 02/26/2016 MUMTAZ MOYA [employer] Ot V58.67 LONG-TERM (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 OF INSULIN 02/26/2016 MUMTAZ MOYA [employer] Ot V58.69 OTH MED,LT,CURRENT USE 02/26/2016 MUMTAZ MOYA [employer] Ot V86.0 ESTROGEN RECEPTOR POSITIVE STATUS [ER+] 02/26/2016 MUMTAZ MOYA [employer] Ot 174.4 MAL PAWEL BREAST UP-OUTER 02/26/2016 MUMTAZ MOYA [employer] Ot 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 02/26/2016 MUMTAZ MOYA [employer] Ot 250.00 DIAB NESTOR WO COMPL, TYPE II OR UNSPEC TY 02/26/2016 MUMTAZ MOYA S [employer] Ot V45.71 ACQUIRED ABSENCE OF BREAST AND NIPPLE 02/26/2016 MUMTAZ MOYA S [employer] Ot V58.67 LONG-TERM (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 OF INSULIN 02/26/2016 MUMTAZ MOYA [employer] Ot V58.69 OTH MED,LT,CURRENT USE 02/26/2016 MUMTAZ MOYA [employer] Ot V86.0 ESTROGEN RECEPTOR POSITIVE STATUS [ER+] 02/26/2016 MUMTAZ MOYA [employer] Ot 174.9 MALIGN NEOPL BREAST NOS 02/26/2016 MUMTAZ MOYA S [employer] Ot 397.0 TRICUSPID VALVE DISEASE 02/26/2016 MUMTAZ MOYA S [employer] Ot 424.0 MITRAL VALVE DISORDER 02/26/2016 MUMTAZ MOYA [employer] Ot 733.90 BONE CARTILAGE DIS NOS 02/26/2016 MUMTAZ MOYA [employer] Ot V58.69 OTH MED,LT,CURRENT USE 02/26/2016 MUMTAZ MOYA [employer] Ot 174.9 MALIGN NEOPL BREAST NOS 02/26/2016 MUMTAZ MOYA [employer] Ot 250.00 DIAB NESTOR WO COMPL, TYPE II OR UNSPEC TY 02/26/2016 MUMTAZ MOYA S [employer] Ot 397.0 TRICUSPID VALVE DISEASE 02/26/2016 MUMTAZ MOYA S [employer] Ot 424.0 MITRAL VALVE DISORDER 02/26/2016 MUMTAZ MOYA [employer] Ot 733.90 BONE CARTILAGE DIS NOS 02/26/2016 MUMTAZ MOYA [employer] Ot V45.71 ACQUIRED ABSENCE OF BREAST AND NIPPLE 02/26/2016 MUMTAZ MOYA [employer] Ot V58.67 LONG-TERM (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 OF INSULIN 02/26/2016 MUMTAZ MOYA S [employer] Ot V58.69 OTH MED,LT,CURRENT USE 02/26/2016 MUMTAZ MOYA S [employer] Ot V86.0 ESTROGEN RECEPTOR POSITIVE STATUS [ER+] 02/26/2016 MUMTAZ MOYA [employer] Ot 174.9 MALIGN NEOPL BREAST NOS 02/26/2016 MUMTAZ MOYA [employer] Ot 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 02/26/2016 MUMTAZ MOYA [employer] Ot 244.9 HYPOTHYROIDISM NOS 02/26/2016 MUMTAZ MOYA S [employer] Ot 250.00 DIAB NESTOR WO COMPL, TYPE II OR UNSPEC TY 02/26/2016 MUMTAZ MOYA [employer] Ot V45.71 ACQUIRED ABSENCE OF BREAST AND NIPPLE 02/26/2016 MUMTAZ MOYA [employer] Ot V58.67 LONG-TERM (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 OF INSULIN 02/26/2016 MUMTAZ MOYA [employer] Ot V58.69 OTH MED,LT,CURRENT USE 02/26/2016 MUMTAZ MOYA [employer] Ot V86.0 ESTROGEN RECEPTOR POSITIVE STATUS [ER+] 02/26/2016 MUMTAZ MOYA [employer] Ot V87.41 PERSONAL HISTORY OF ANTINEOPLASTIC CHEMO 02/26/2016 MUMTAZ MOYA [employer] Ot 174.9 MALIGN NEOPL BREAST NOS 02/26/2016 MUMTAZ MOYA [employer] Ot 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 02/26/2016 MUMTAZ MOYA [employer] Ot 244.9 HYPOTHYROIDISM NOS 02/26/2016 MUMTAZ MOYA [employer] Ot 250.00 DIAB NESTOR WO COMPL, TYPE II OR UNSPEC TY 02/26/2016 MUMTAZ MOYA [employer] Ot V45.71 ACQUIRED ABSENCE OF BREAST AND NIPPLE 02/26/2016 MUMTAZ MOYA [employer] Ot V58.67 LONG-TERM (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 OF INSULIN 02/26/2016 MUMTAZ MOYA [employer] Ot V58.69 OTH MED,LT,CURRENT USE 02/26/2016 MUMTAZ MOYA [employer] Ot V86.0 ESTROGEN RECEPTOR POSITIVE STATUS [ER+] 02/26/2016 MUMTAZ MOYA [employer] Ot V87.41 PERSONAL HISTORY OF ANTINEOPLASTIC CHEMO 02/26/2016 MUMTAZ MOYA [employer] Ot 174.9 MALIGN NEOPL BREAST NOS 02/26/2016 MUMTAZ MOYA [employer] Ot 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 02/26/2016 MUMTAZ MOYA [employer] Ot V15.3 HX OF IRRADIATION 02/26/2016 MUMTAZ MOYA [employer] Ot V45.71 ACQUIRED ABSENCE OF BREAST AND NIPPLE 02/26/2016 MUMTAZ MOYAP Ot V58.69 OTH MED,LT,CURRENT USE 02/26/2016 MUMTAZ MOYA [employer] Ot V86.0 ESTROGEN RECEPTOR POSITIVE STATUS [ER+] 02/26/2016 [employer]UM[employer]Z [employer]YA [employer]ER Ot V87.41 PERSONAL HISTORY OF ANTINEOPLASTIC CHEMO 02/26/2016 MUMTAZ MOYA [employer] Ot 174.9 MALIGN NEOPL BREAST NOS 02/26/2016 MUMTAZ MOYA [employer] Ot 397.0 TRICUSPID VALVE DISEASE 02/26/2016 MUMTAZ MOYA [employer] Ot 424.0 MITRAL VALVE DISORDER 02/26/2016 MUMTAZ MOYAP Ot V58.69 OTH MED,LT,CURRENT USE 02/26/2016 MUMTAZ MOYAP Ot V58.83 ENCOUNTER FOR THERAPEUTIC DRUG MONITORIN 02/26/2016 MUMTAZ MOYAP Ot V87.41 PERSONAL HISTORY OF ANTINEOPLASTIC CHEMO 02/26/2016 MUMTAZ MOYA [employer] Ot 174.9 MALIGN NEOPL BREAST NOS 02/26/2016 MUMTAZ MOYA [employer] Ot 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 02/26/2016 MUMTAZ MOYA [employer] Ot V15.3 HX OF IRRADIATION 02/26/2016 MUMTAZ MOYA [employer] Ot V16.41 FAM HX-MAL NEOP-OVARY 02/26/2016 MUMTAZ MOYA [employer] Ot V45.71 ACQUIRED ABSENCE OF BREAST AND NIPPLE 02/26/2016 MUMTAZ MOYAP Ot V58.69 OTH MED,LT,CURRENT USE 02/26/2016 MUMTAZ MOYA [employer] Ot V86.0 ESTROGEN RECEPTOR POSITIVE STATUS [ER+] 02/26/2016 MUMTAZ MOYA [employer] Ot V87.41 PERSONAL HISTORY OF ANTINEOPLASTIC CHEMO 02/26/2016 MUMTAZ MOYA [employer] Ot 174.9 MALIGN NEOPL BREAST NOS 02/26/2016 MUMTAZ MOYA [employer] Ot 793.11 SOLITARY PULMONARY NODULE 02/26/2016 Ot 174.4 MAL PAWEL BREAST UP-OUTER 02/26/2016 Ot 196.3 MAL PAWEL LYMPH -AXILLA/ARM 02/26/2016 Ot V58.11 ENCOUNTER FOR ANTINEOPLASTIC CHEMOTHERAP 02/26/2016 Ot V58.69 OTH MED,LT, CURRENT USE 02/26/2016 Ot V86.0 ESTROGEN RECEPTOR POSITIVE STATUS [ER+] 02/26/2016 MUMTAZ MOYA [employer] Ot 174.9 MALIGN NEOPL BREAST NOS 02/26/2016 MUMTAZ MOYA [employer] Ot 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 02/26/2016 MUMTAZ MOYA [employer] M[employer] Ot V15.3 HX OF IRRADIATION 02/26/2016 MUMTAZ MOYA [employer] M[employer] Ot V16.41 FAM HX-MAL NEOP-OVARY 02/26/2016 MUMTAZ MOYA [employer] M[employer] Ot V45.71 ACQUIRED ABSENCE OF BREAST AND NIPPLE 02/26/2016 MUMTAZ MOYAP Ot V58.69 OTH MED,LT,CURRENT USE 02/26/2016 MUMTAZ MOYA [employer] Ot V86.0 ESTROGEN RECEPTOR POSITIVE STATUS [ER+] 02/26/2016 MUMTAZ MOYAP Ot V87.41 PERSONAL HISTORY OF ANTINEOPLASTIC CHEMO 02/26/2016 MUMTAZ MOYA [employer] Ot 174.9 MALIGN NEOPL BREAST NOS 02/26/2016 MUMTAZ MOYA [employer] M[employer] Ot 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 02/26/2016 MUMTAZ MOYA [employer] M[employer] Ot V15.3 HX OF IRRADIATION 02/26/2016 MUMTAZ MOYA [employer] Ot V16.41 FAM HX-MAL NEOP-OVARY 02/26/2016 MUMTAZ MOYA [employer] M[employer] Ot V45.71 ACQUIRED ABSENCE OF BREAST AND NIPPLE 02/26/2016 MUMTAZ MOYAP Ot V58.69 OTH MED,LT,CURRENT USE 02/26/2016 MUMTAZ MOYA [employer] Ot V86.0 ESTROGEN RECEPTOR POSITIVE STATUS [ER+] 02/26/2016 MUMTAZ MOYA [employer] Ot V87.41 PERSONAL HISTORY OF ANTINEOPLASTIC CHEMO 02/26/2016 MUMTAZ MOYA [employer] Ot 174.9 MALIGN NEOPL BREAST NOS 02/26/2016 MUMTAZ MOYA [employer] Ot 174.9 MALIGN NEOPL BREAST NOS 02/26/2016 MUMTAZ MOYA [employer] Ot 793.11 SOLITARY PULMONARY NODULE 02/26/2016 ADRI GREEN, MADELINE Jackson Ot 174.9 MALIGN NEOPL BREAST NOS 02/26/2016 ADRI GREEN, MADELINE Jackson Ot 244.9 HYPOTHYROIDISM NOS 02/26/2016 ADRI GREEN, MADELINE Jackson Ot 397.0 TRICUSPID VALVE DISEASE 02/26/2016 MADELINE IVAN MD Ot 401.9 HYPERTENSION NOS 02/26/2016 MADELINE IVAN MD Ot 424.0 MITRAL VALVE DISORDER 02/26/2016 MADELINE IVAN MD Ot 782.3 EDEMA 02/26/2016 MUMTAZ MOYA [employer] Ot 174.9 MALIGN NEOPL BREAST NOS 02/26/2016 KAREEM PENN Ot 174.9 MALIGN NEOPL BREAST NOS 02/26/2016 KAREEM PENN Ot 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 02/26/2016 KAREEM PENN Ot V15.3 HX OF IRRADIATION 02/26/2016 KAREEM PENN Ot V45.71 ACQUIRED ABSENCE OF BREAST AND NIPPLE 02/26/2016 KAREEM PENN Ot V58.69 OTH MED,LT,CURRENT USE 02/26/2016 KAREEM PENN Ot V86.0 ESTROGEN RECEPTOR POSITIVE STATUS [ER+] 02/26/2016 KAREEM PENN Ot V87.41 PERSONAL HISTORY OF ANTINEOPLASTIC CHEMO 02/26/2016 MUMTAZ MOYA [employer] Ot 174.9 MALIGN NEOPL BREAST NOS 02/26/2016 MUMTAZ MOYA [employer] Ot 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 02/26/2016 MUMTAZ MOYA [employer] Ot 250.00 DIAB NESTOR WO COMPL, TYPE II OR UNSPEC TY 02/26/2016 MUMTAZ MOYA [employer] Ot 305.1 TOBACCO USE DISORDER 02/26/2016 MUMTAZ MOYA [employer] Ot V15.3 HX OF IRRADIATION 02/26/2016 MUMTAZ MOYA [employer] Ot V45.71 ACQUIRED ABSENCE OF BREAST AND NIPPLE 02/26/2016 MUMTAZ MOYA [employer] Ot V58.67 LONG-TERM (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 OF INSULIN 02/26/2016 MUMTAZ MOYA [employer] Ot V58.69 OT MED,LT,CURRENT USE 02/26/2016 MUMTAZ MOYA [employer] Ot V86.0 ESTROGEN RECEPTOR POSITIVE STATUS [ER+] 02/26/2016 MUMTAZ MOYA [employer] Ot V87.41 PERSONAL HISTORY OF ANTINEOPLASTIC CHEMO 02/26/2016 MUMTAZ MOYA [employer] Ot 611.72 LUMP OR MASS IN BREAST 02/26/2016 MMUTAZ MOYA [employer] Ot 793.11 SOLITARY PULMONARY NODULE 02/26/2016 MUMTAZ MOYA [employer] Ot V10.3 HX OF BREAST MALIGNANCY 02/26/2016 MUMTAZ MOYA [employer] Ot V45.71 ACQUIRED ABSENCE OF BREAST AND NIPPLE 02/26/2016 MUMTAZ MOYA [employer] Ot V84.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 02/26/2016 MUMTAZ MOYA [employer] Ot 174.9 MALIGN NEOPL BREAST NOS 02/26/2016 MUMTAZ MOYA [employer] Ot 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 02/26/2016 MUMTAZ MOYA [employer] Ot 250.00 DIAB NESTOR WO COMPL, TYPE II OR UNSPEC TY 02/26/2016 MUMTAZ MOYA [employer] Ot 305.1 TOBACCO USE DISORDER 02/26/2016 MUMTAZ MOYA [employer] Ot 733.90 BONE CARTILAGE DIS NOS 02/26/2016 MUMTAZ MOYA [employer] M[employer] Ot V15.3 HX OF IRRADIATION 02/26/2016 MUMTAZ MOYA [employer] M[employer] Ot V45.71 ACQUIRED ABSENCE OF BREAST AND NIPPLE 02/26/2016 MUMTAZ MOYA [employer] Ot V58.67 LONG-TERM (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 OF INSULIN 02/26/2016 MUMTAZ MOYA [employer] Ot V58.69 OTH MED,LT,CURRENT USE 02/26/2016 MUMTAZ MOYA [employer] Ot V86.0 ESTROGEN RECEPTOR POSITIVE STATUS [ER+] 02/26/2016 MUMTAZ MOYA [employer] Ot V87.41 PERSONAL HISTORY OF ANTINEOPLASTIC CHEMO 02/26/2016 MUMTAZ MOYA [employer] Ot 174.9 MALIGN NEOPL BREAST NOS 02/26/2016 MUMTAZ MOYA [employer] M[employer] Ot 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 02/26/2016 MUMTAZ MOYA [employer] Ot 733.90 BONE CARTILAGE DIS NOS 02/26/2016 MUMTAZ MOYA Ot 793.11 SOLITARY PULMONARY NODULE 02/26/2016 MUMTAZ MOYA Ot V84.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 02/26/2016 ENDER PAZ Ot E10.9 TYPE 1 DIABETES MELLITUS WITHOUT COMPLIC 02/26/2016 ENDER PAZ Ot E66.8 OTHER OBESITY 02/26/2016 ENDER PAZ Ot I10 ESSENTIAL (PRIMARY) HYPERTENSION 02/26/2016 ENDER PAZ Ot R60.9 EDEMA, UNSPECIFIED 02/26/2016 JASPER GREEN, MARK Willoughby Ot M06.9 RHEUMATOID ARTHRITIS, UNSPECIFIED 02/26/2016 MUMTAZ MOYA Ot C50.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 02/26/2016 MUMTAZ MOYA Ot C77.3 SEC AND UNSP MALIG NEOPLASM OF AXILLA AN 02/26/2016 MUMTAZ MOYA Ot M85.80 OTH DISRD OF BONE DENSITY AND STRUCTURE, 02/26/2016 MUMTAZ MOYA Ot Z15.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 02/26/2016 MUMTAZ MOYA Ot Z17.0 ESTROGEN RECEPTOR POSITIVE STATUS [ER+] 02/26/2016 MUMTAZ MOYA Ot 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 02/26/2016 MUMTAZ MOYA [employer] Ot Z90.11 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 02/26/2016 MUMTAZ MOYAP Ot Z92.3 PERSONAL HISTORY OF IRRADIATION 02/26/2016 KAREEM PENN Ot 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 02/26/2016 KAREEM PENN Ot C77.3 SEC AND UNSP MALIG NEOPLASM OF AXILLA AN 02/26/2016 KAREEM PENN Ot M85.80 OTH DISRD OF BONE DENSITY AND STRUCTURE, 02/26/2016 KAREEM PENN Ot R10.11 RIGHT UPPER QUADRANT PAIN 02/26/2016 KAREEM PENN Ot Z17.0 ESTROGEN RECEPTOR POSITIVE STATUS [ER+] 02/26/2016 KAREEM PENN Ot Z79.811 [facility] (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 OF AROMATASE INH 02/26/2016 KAREEM PENN Ot Z90.11 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 02/26/2016 KAREEM PENN Ot Z92.3 PERSONAL HISTORY OF IRRADIATION 02/26/2016 MUMTAZ MOYA [employer] M[employer] Ot 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 02/26/2016 MUMTAZ MOYA [employer] M[employer] Ot 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 02/26/2016 MUMTAZ MOYAP Ot C77.3 SEC AND UNSP MALIG NEOPLASM OF AXILLA AN 02/26/2016 MUMTAZ MOYAP Ot M85.80 OTH DISRD OF BONE DENSITY AND STRUCTURE, 02/26/2016 MUMTAZ MOYA [employer] Ot Z17.0 ESTROGEN RECEPTOR POSITIVE STATUS [ER+] 02/26/2016 MUMTAZ MOYA [employer] M[employer] Ot 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 02/26/2016 MUMTAZ MOYA S [employer] M[employer]ER Ot Z90.11 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 02/26/2016 MUMTAZ MOYA [employer] M[employer] Ot Z92.3 PERSONAL HISTORY OF IRRADIATION 02/27/2016 MUMTAZ MOYA [employer] Ot 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 02/27/2016 MUMTAZ MOYA [employer] M[employer]ER Ot Z85.3 PERSONAL HISTORY OF MALIGNANT NEOPLASM O 02/27/2016 MUMTAZ MOYA [employer] M[employer] Ot Z90.11 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 02/27/2016 MUMTAZ MOYA [employer] M[employer] Ot 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 02/27/2016 MUMTAZ MOYA S [employer] M[employer]ER Ot Z85.3 PERSONAL HISTORY OF MALIGNANT NEOPLASM O 02/27/2016 MUMTAZ MOYA S [employer] M[employer]ER Ot Z90.11 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 03/03/2016 KAREEM PENN Ot 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 03/03/2016 KAREEM PENN Ot C77.3 SEC AND UNSP MALIG NEOPLASM OF AXILLA AN 03/03/2016 FILI, BOBAN N Ot M85.80 OTH DISRD OF BONE DENSITY AND STRUCTURE, 03/03/2016 KAREEM PENN Ot R10.11 RIGHT UPPER QUADRANT PAIN 03/03/2016 KAREEM PENN Ot Z17.0 ESTROGEN RECEPTOR POSITIVE STATUS [ER+] 03/03/2016 KAREEM PENN N Ot Z79.811 [facility] (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 OF AROMATASE INH 03/03/2016 KAREEM PENN N Ot Z90.11 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 03/03/2016 KAREEM PENN Ot Z92.3 PERSONAL HISTORY OF IRRADIATION 03/17/2016 KAREEM PENN Ot 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 03/17/2016 KAREEM PENN Ot C77.3 SEC AND UNSP MALIG NEOPLASM OF AXILLA AN 03/17/2016 KAREEM PENN Ot M85.80 OTH DISRD OF BONE DENSITY AND STRUCTURE, 03/17/2016 KAREEM PENN Ot R10.11 RIGHT UPPER QUADRANT PAIN 03/17/2016 KAREEM PENN Ot Z17.0 ESTROGEN RECEPTOR POSITIVE STATUS [ER+] 03/17/2016 KAREEM PENN N Ot Z79.811 [facility] (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 OF AROMATASE INH 03/17/2016 KAREEM PENN N Ot Z90.11 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 03/17/2016 KAREEM PENN N Ot Z92.3 PERSONAL HISTORY OF IRRADIATION 03/24/2016 KAREEM PENN Ot 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 03/24/2016 KAREEM PENN Ot C77.3 SEC AND UNSP MALIG NEOPLASM OF AXILLA AN 03/24/2016 KAREEM PENN Ot M85.80 OTH DISRD OF BONE DENSITY AND STRUCTURE, 03/24/2016 KAREEM PENN Ot R10.11 RIGHT UPPER QUADRANT PAIN 03/24/2016 KAREEM PENN Ot Z17.0 ESTROGEN RECEPTOR POSITIVE STATUS [ER+] 03/24/2016 KAREEM PENN Ot Z79.811 [facility] (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 OF AROMATASE INH 03/24/2016 KAREEM PENN N Ot Z90.11 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 03/24/2016 KAREEM PENN Ot Z92.3 PERSONAL HISTORY OF IRRADIATION 04/15/2016 KAREEM PENN Ot 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 04/15/2016 KAREEM PENN Ot C77.3 SEC AND UNSP MALIG NEOPLASM OF AXILLA AN 04/15/2016 KAREEM PENN Petr Ot M85.80 OTH DISRD OF BONE DENSITY AND STRUCTURE, 04/15/2016 KAREEM PENN Petr Ot R10.11 RIGHT UPPER QUADRANT PAIN 04/15/2016 KAREEM PENN N Ot Z17.0 ESTROGEN RECEPTOR POSITIVE STATUS [ER+] 04/15/2016 KAREEM PENN N Ot 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 04/15/2016 KAREEM PENN N Ot Z90.11 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 04/15/2016 KAREEM PENN Petr Ot Z92.3 PERSONAL HISTORY OF IRRADIATION 04/22/2016 MUMTAZ MOYA [employer] M[employer] Ot 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 04/22/2016 MUMTAZ MOYA [employer] M[employer]ER Ot Z85.3 PERSONAL HISTORY OF MALIGNANT NEOPLASM O 04/22/2016 MUMTAZ MOYA [employer] MENDER Ot Z90.11 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 06/21/2016 KAREEM PENN Petr Ot 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 06/21/2016 KAREEM PENN Ot C77.3 SEC AND UNSP MALIG NEOPLASM OF AXILLA AN 06/21/2016 KAREEM PENN Petr Ot M85.80 OTH DISRD OF BONE DENSITY AND STRUCTURE, 06/21/2016 KAREEM PENN Petr Ot R10.11 RIGHT UPPER QUADRANT PAIN 06/21/2016 KAREEM PENN Ot Z17.0 ESTROGEN RECEPTOR POSITIVE STATUS [ER+] 06/21/2016 KAREEM PENN Petr Ot 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 06/21/2016 KAREEM PENN N Ot Z90.11 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 06/21/2016 KAREEM PENN N Ot Z92.3 PERSONAL HISTORY OF IRRADIATION 06/22/2016 KAREEM PENN Petr Ot 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 06/22/2016 KAREEM PENN Ot C77.3 SEC AND UNSP MALIG NEOPLASM OF AXILLA AN 06/22/2016 KAREEM PENN Ot M85.80 OTH DISRD OF BONE DENSITY AND STRUCTURE, 06/22/2016 KAREEM PENN Ot R10.11 RIGHT UPPER QUADRANT PAIN 06/22/2016 KAREEM PENN Ot Z17.0 ESTROGEN RECEPTOR POSITIVE STATUS [ER+] 06/22/2016 KAREEM PENN Ot Z79.811 [facility] (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 OF AROMATASE INH 06/22/2016 KAREEM PENN Ot Z90.11 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 06/22/2016 KAREEM PENN Ot Z92.3 PERSONAL HISTORY OF IRRADIATION 09/20/2016 Ot 611.72 LUMP OR MASS IN BREAST 09/20/2016 Ot 793.81 MAMMOGRAPHIC MICROCLACIFICATION 09/20/2016 Ot 174.9 MALIGN NEOPL BREAST NOS 09/20/2016 Ot V58.69 OTH MED,LT, CURRENT USE 09/20/2016 Ot 174.4 MAL PAWEL BREAST UP-OUTER 09/20/2016 Ot 196.3 MAL PAWEL LYMPH -AXILLA/ARM 09/20/2016 Ot V58.11 ENCOUNTER FOR ANTINEOPLASTIC CHEMOTHERAP 09/20/2016 Ot V58.69 OTH MED,LT, CURRENT USE 09/20/2016 Ot V86.0 ESTROGEN RECEPTOR POSITIVE STATUS [ER+] 09/20/2016 Ot 174.9 MALIGN NEOPL BREAST NOS 09/20/2016 Ot 276.69 OTHER FLUID OVERLOAD 09/20/2016 Ot 397.0 TRICUSPID VALVE DISEASE 09/20/2016 Ot 424.0 MITRAL VALVE DISORDER 09/20/2016 Ot V58.69 OTH MED,LT, CURRENT USE 09/20/2016 Ot V58.83 ENCOUNTER FOR THERAPEUTIC DRUG MONITORIN 09/20/2016 Ot V87.41 PERSONAL HISTORY OF ANTINEOPLASTIC CHEMO 09/20/2016 Ot 174.9 MALIGN NEOPL BREAST NOS 09/20/2016 Ot V58.69 OTH MED,LT, CURRENT USE 09/20/2016 Ot V87.41 PERSONAL HISTORY OF ANTINEOPLASTIC CHEMO 09/20/2016 Ot V58.69 OTH MED,LT, CURRENT USE 09/20/2016 Ot V58.83 ENCOUNTER FOR THERAPEUTIC DRUG MONITORIN 09/20/2016 Ot 428.0 CONGESTIVE HEART FAILURE NOS 09/20/2016 KAREEM PENN N Ot 996.74 OTH COMPL DUE TO OT VASCULAR DEVICE,IMP 09/20/2016 JOSEYVONMARITO Cooper [employer] Ot 729.5 PAIN IN LIMB 09/20/2016 EUGENIO BELTRAN [employer] Ot 729.5 PAIN IN LIMB 09/20/2016 EUGENIO BELTRAN [employer] Ot 729.81 SWELLING OF LIMB 09/20/2016 MUMTAZ MOYA [employer] Ot 174.4 MAL PAWEL BREAST UP-OUTER 09/20/2016 MUMTAZ MOYA [employer] M[employer] Ot 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 09/20/2016 MUMTAZ MOYA [employer] M[employer] Ot 250.00 DIAB NESTOR WO COMPL, TYPE II OR UNSPEC TY 09/20/2016 MUMTAZ MOYA [employer] M[employer] Ot 782.3 EDEMA 09/20/2016 MUMTAZ MOYAP Ot V45.71 ACQUIRED ABSENCE OF BREAST AND NIPPLE 09/20/2016 MUMTAZ MOYA [employer] M[employer] Ot V58.67 LONG-TERM (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 OF INSULIN 09/20/2016 MUMTAZ MOYAP Ot V58.69 OTH MED,LT,CURRENT USE 09/20/2016 MUMTAZ MOYA [employer] M[employer] Ot V86.0 ESTROGEN RECEPTOR POSITIVE STATUS [ER+] 09/20/2016 MUMTAZ MOYA [employer] M[employer] Ot 397.0 TRICUSPID VALVE DISEASE 09/20/2016 MUMTAZ MOYAP Ot 424.0 MITRAL VALVE DISORDER 09/20/2016 MUMTAZ MOYAP Ot 782.3 EDEMA 09/20/2016 MUMTAZ MOYAP Ot V58.69 OTH MED,LT,CURRENT USE 09/20/2016 MUMTAZ MOYAP Ot V58.83 ENCOUNTER FOR THERAPEUTIC DRUG MONITORIN 09/20/2016 MUMTAZ MOYAP Ot V87.41 PERSONAL HISTORY OF ANTINEOPLASTIC CHEMO 09/20/2016 MUMTAZ MOYA [employer] Ot 174.4 MAL PAWEL BREAST UP-OUTER 09/20/2016 MUMTAZ MOYA [employer] M[employer] Ot 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 09/20/2016 MUMTAZ MOYA S [employer] Ot 250.00 DIAB NESTOR WO COMPL, TYPE II OR UNSPEC TY 09/20/2016 MUMTAZ MOYA [employer] M[employer] Ot 457.1 OTHER LYMPHEDEMA 09/20/2016 MUMTAZ MOYA [employer] M[employer]ER Ot 782.3 EDEMA 09/20/2016 MUMTAZ MOYA [employer] M[employer] Ot V45.71 ACQUIRED ABSENCE OF BREAST AND NIPPLE 09/20/2016 MUMTAZ MOYA [employer] MENDER Ot V58.67 LONG-TERM (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 OF INSULIN 09/20/2016 MUMTAZ MOYA S [employer] M[employer] Ot V58.69 OTH MED,LT,CURRENT USE 09/20/2016 MUMTAZ MOYA S [employer] M[employer] Ot V86.0 ESTROGEN RECEPTOR POSITIVE STATUS [ER+] 09/20/2016 MUMTAZ MOYA [employer] M[employer]ER Ot 174.4 MAL PAWEL BREAST UP-OUTER 09/20/2016 MUMTAZ MOYA [employer] M[employer]ER Ot 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 09/20/2016 MUMTAZ MOYA S [employer] M[employer]ER Ot 250.00 DIAB NESTOR WO COMPL, TYPE II OR UNSPEC TY 09/20/2016 MUMTAZ MOYA [employer] M[employer]ER Ot V45.71 ACQUIRED ABSENCE OF BREAST AND NIPPLE 09/20/2016 MUMTAZ MOYA [employer] M[employer]ER Ot V58.67 LONG-TERM (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 OF INSULIN 09/20/2016 MUMTAZ MOYA [employer] MENDER Ot V58.69 OTH MED,LT,CURRENT USE 09/20/2016 MUMTAZ MOYA S [employer] Ot V86.0 ESTROGEN RECEPTOR POSITIVE STATUS [ER+] 09/20/2016 MUMTAZ MOYA [employer] M[employer] Ot 174.9 MALIGN NEOPL BREAST NOS 09/20/2016 MUMTAZ MOYA S [employer] Ot 397.0 TRICUSPID VALVE DISEASE 09/20/2016 DC MOYAAH S [employer] Ot 424.0 MITRAL VALVE DISORDER 09/20/2016 MUMTAZ MOYA S [employer] Ot 733.90 BONE CARTILAGE DIS NOS 09/20/2016 MUMTAZ MOYA S [employer] Ot V58.69 OTH MED,LT,CURRENT USE 09/20/2016 MUMTAZ MOYA S [employer] Ot 174.9 MALIGN NEOPL BREAST NOS 09/20/2016 MUMTAZ MOYA S [employer] M[employer]ER Ot 250.00 DIAB NESTOR WO COMPL, TYPE II OR UNSPEC TY 09/20/2016 MUMTAZ MOYA S [employer] M[employer] Ot 397.0 TRICUSPID VALVE DISEASE 09/20/2016 MUMTAZ MOYA [employer] MENDER Ot 424.0 MITRAL VALVE DISORDER 09/20/2016 MUMTAZ MOYA [employer] MENDER Ot 733.90 BONE CARTILAGE DIS NOS 09/20/2016 MUMTAZ MOYA S [employer] M[employer]ER Ot V45.71 ACQUIRED ABSENCE OF BREAST AND NIPPLE 09/20/2016 MUMTAZ MOYA S [employer] M[employer]ER Ot V58.67 LONG-TERM (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 OF INSULIN 09/20/2016 MUTMAZ MOYA S [employer] Ot V58.69 OTH MED,LT,CURRENT USE 09/20/2016 MUMTAZ MOYA S [employer] M[employer] Ot V86.0 ESTROGEN RECEPTOR POSITIVE STATUS [ER+] 09/20/2016 MUMTAZ MOYA S [employer] Ot 174.9 MALIGN NEOPL BREAST NOS 09/20/2016 MUMTAZ MOYA S [employer]ER Ot 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 09/20/2016 MUMTAZ MOYA S [employer] M[employer]ER Ot 244.9 HYPOTHYROIDISM NOS 09/20/2016 MUMTAZ MOYA S [employer]ER Ot 250.00 DIAB NESTOR WO COMPL, TYPE II OR UNSPEC TY 09/20/2016 MUMTAZ MOYA S [employer] M[employer]ER Ot V45.71 ACQUIRED ABSENCE OF BREAST AND NIPPLE 09/20/2016 MUMTAZ MOYA S [employer] M[employer]ER Ot V58.67 LONG-TERM (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 OF INSULIN 09/20/2016 MUMTAZ MOYA S [employer] M[employer]ER Ot V58.69 OTH MED,LT,CURRENT USE 09/20/2016 MUMTAZ MOYA S [employer] M[employer]ER Ot V86.0 ESTROGEN RECEPTOR POSITIVE STATUS [ER+] 09/20/2016 MUMTAZ MOYA S [employer] M[employer]ER Ot V87.41 PERSONAL HISTORY OF ANTINEOPLASTIC CHEMO 09/20/2016 MUMTAZ MOYA S [employer] Ot 174.9 MALIGN NEOPL BREAST NOS 09/20/2016 MUMTAZ MOYA S [employer] M[employer]ER Ot 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 09/20/2016 MUMTAZ MOYA S [employer] M[employer]ER Ot 244.9 HYPOTHYROIDISM NOS 09/20/2016 DC MOYAAH S [employer] Ot 250.00 DIAB NESTOR WO COMPL, TYPE II OR UNSPEC TY 09/20/2016 MUMTAZ MOYA S [employer] M[employer]ER Ot V45.71 ACQUIRED ABSENCE OF BREAST AND NIPPLE 09/20/2016 MUMTAZ MOYA [employer] M[employer] Ot V58.67 LONG-TERM (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 OF INSULIN 09/20/2016 MUMTAZ MOYAP Ot V58.69 OTH MED,LT,CURRENT USE 09/20/2016 MUMTAZ MOYA [employer] M[employer] Ot V86.0 ESTROGEN RECEPTOR POSITIVE STATUS [ER+] 09/20/2016 MUMTAZ MOYA [employer] M[employer]ER Ot V87.41 PERSONAL HISTORY OF ANTINEOPLASTIC CHEMO 09/20/2016 MUMTAZ MOYA [employer] M[employer] Ot 174.9 MALIGN NEOPL BREAST NOS 09/20/2016 MUMTAZ MOYA [employer] M[employer] Ot 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 09/20/2016 MUMTAZ MOYAP Ot V15.3 HX OF IRRADIATION 09/20/2016 MUMTAZ MOYA [employer] Ot V45.71 ACQUIRED ABSENCE OF BREAST AND NIPPLE 09/20/2016 MUMTAZ MOYAP Ot V58.69 OTH MED,LT,CURRENT USE 09/20/2016 MUMTAZ MOYA [employer] Ot V86.0 ESTROGEN RECEPTOR POSITIVE STATUS [ER+] 09/20/2016 MUMTAZ MOYA [employer] Ot V87.41 PERSONAL HISTORY OF ANTINEOPLASTIC CHEMO 09/20/2016 MUMTAZ MOYAP Ot 174.9 MALIGN NEOPL BREAST NOS 09/20/2016 MUMTAZ MOYA [employer] Ot 397.0 TRICUSPID VALVE DISEASE 09/20/2016 MUMTAZ MOYAP Ot 424.0 MITRAL VALVE DISORDER 09/20/2016 MUMTAZ MOYAP Ot V58.69 OTH MED,LT,CURRENT USE 09/20/2016 MUMTAZ MOYA [employer] Ot V58.83 ENCOUNTER FOR THERAPEUTIC DRUG MONITORIN 09/20/2016 MUMTAZ MOYA [employer] Ot V87.41 PERSONAL HISTORY OF ANTINEOPLASTIC CHEMO 09/20/2016 MUMTAZ MOYA [employer] Ot 174.9 MALIGN NEOPL BREAST NOS 09/20/2016 MUMTAZ MOYA [employer] M[employer] Ot 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 09/20/2016 MUMTAZ MOYA [employer] M[employer] Ot V15.3 HX OF IRRADIATION 09/20/2016 MUMTAZ MOYA [employer] M[employer] Ot V16.41 FAM HX-MAL NEOP-OVARY 09/20/2016 MUMTAZ MOYA [employer] M[employer] Ot V45.71 ACQUIRED ABSENCE OF BREAST AND NIPPLE 09/20/2016 MUMTAZ MOYAP Ot V58.69 OTH MED,LT,CURRENT USE 09/20/2016 MUMTAZ MOYA [employer] M[employer] Ot V86.0 ESTROGEN RECEPTOR POSITIVE STATUS [ER+] 09/20/2016 MUMTAZ MOYAP Ot V87.41 PERSONAL HISTORY OF ANTINEOPLASTIC CHEMO 09/20/2016 MUMTAZ MOYA [employer] Ot 174.9 MALIGN NEOPL BREAST NOS 09/20/2016 MUMTAZ MOYAP Ot 793.11 SOLITARY PULMONARY NODULE 09/20/2016 Ot 174.4 MAL PAWEL BREAST UP-OUTER 09/20/2016 Ot 196.3 MAL PAWEL LYMPH -AXILLA/ARM 09/20/2016 Ot V58.11 ENCOUNTER FOR ANTINEOPLASTIC CHEMOTHERAP 09/20/2016 Ot V58.69 OTH MED,LT, CURRENT USE 09/20/2016 Ot V86.0 ESTROGEN RECEPTOR POSITIVE STATUS [ER+] 09/20/2016 MUMTAZ MOYA [employer] Ot 174.9 MALIGN NEOPL BREAST NOS 09/20/2016 MUMTAZ MOYA [employer] M[employer] Ot 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 09/20/2016 MUMTAZ MOYA [employer] M[employer] Ot V15.3 HX OF IRRADIATION 09/20/2016 MUMTAZ MOYA [employer] M[employer] Ot V16.41 FAM HX-MAL NEOP-OVARY 09/20/2016 MUMTAZ MOYA [employer] M[employer] Ot V45.71 ACQUIRED ABSENCE OF BREAST AND NIPPLE 09/20/2016 MUMTAZ MOYA [employer] M[employer] Ot V58.69 OTH MED,LT,CURRENT USE 09/20/2016 MUMTAZ MOYA [employer] M[employer] Ot V86.0 ESTROGEN RECEPTOR POSITIVE STATUS [ER+] 09/20/2016 MUMTAZ MOYA [employer] M[employer] Ot V87.41 PERSONAL HISTORY OF ANTINEOPLASTIC CHEMO 09/20/2016 MUMTAZ MOYA [employer] Ot 174.9 MALIGN NEOPL BREAST NOS 09/20/2016 MUMTAZ MOYA [employer] Ot 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 09/20/2016 MUMTAZ MOYA [employer] M[employer] Ot V15.3 HX OF IRRADIATION 09/20/2016 MUMTAZ MOYA [employer] M[employer] Ot V16.41 FAM HX-MAL NEOP-OVARY 09/20/2016 MUMTAZ MOYA [employer] M[employer] Ot V45.71 ACQUIRED ABSENCE OF BREAST AND NIPPLE 09/20/2016 MUMTAZ MOYA Ot V58.69 OTH MED,LT,CURRENT USE 09/20/2016 MUMTAZ MOYA [employer] Ot V86.0 ESTROGEN RECEPTOR POSITIVE STATUS [ER+] 09/20/2016 MUMTAZ MOYA [employer] Ot V87.41 PERSONAL HISTORY OF ANTINEOPLASTIC CHEMO 09/20/2016 MUMTAZ MOYA [employer] Ot 174.9 MALIGN NEOPL BREAST NOS 09/20/2016 MUMTAZ MOYA [employer] Ot 174.9 MALIGN NEOPL BREAST NOS 09/20/2016 MUMTAZ MOYA [employer] M[employer] Ot 793.11 SOLITARY PULMONARY NODULE 09/20/2016 ADRI GREEN, MADELINE J Ot 174.9 MALIGN NEOPL BREAST NOS 09/20/2016 ADRI GREEN, BASHAR J Ot 244.9 HYPOTHYROIDISM NOS 09/20/2016 ADRI GREEN, DARCIEHAR J Ot 397.0 TRICUSPID VALVE DISEASE 09/20/2016 ADRI GREEN, DARCIEHAR J Ot 401.9 HYPERTENSION NOS 09/20/2016 ADRI GREEN, DARCIEHAR J Ot 424.0 MITRAL VALVE DISORDER 09/20/2016 ADRI GREEN, BASHAR J Ot 782.3 EDEMA 09/20/2016 MUMTAZ MOYA [employer] Ot 174.9 MALIGN NEOPL BREAST NOS 09/20/2016 KAREEM PENN Ot 174.9 MALIGN NEOPL BREAST NOS 09/20/2016 KAREEM PENN Ot 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 09/20/2016 KAREEM PENN Ot V15.3 HX OF IRRADIATION 09/20/2016 KAREEM PENN Ot V45.71 ACQUIRED ABSENCE OF BREAST AND NIPPLE 09/20/2016 KAREEM PENN Ot V58.69 OTH MED,LT,CURRENT USE 09/20/2016 KAREEM PENN Ot V86.0 ESTROGEN RECEPTOR POSITIVE STATUS [ER+] 09/20/2016 KAREEM PENN Ot V87.41 PERSONAL HISTORY OF ANTINEOPLASTIC CHEMO 09/20/2016 MUMTAZ MOYA [employer] Ot 174.9 MALIGN NEOPL BREAST NOS 09/20/2016 MUMTAZ MOYA [employer] Ot 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 09/20/2016 MUMTAZ MOYA [employer] Ot 250.00 DIAB NESTOR WO COMPL, TYPE II OR UNSPEC TY 09/20/2016 MUMTAZ MOYA [employer] Ot 305.1 TOBACCO USE DISORDER 09/20/2016 MUMTAZ MOYA [employer] M[employer] Ot V15.3 HX OF IRRADIATION 09/20/2016 MUMTAZ MOYA [employer] M[employer] Ot V45.71 ACQUIRED ABSENCE OF BREAST AND NIPPLE 09/20/2016 MUMTAZ MOYA [employer] Ot V58.67 LONG-TERM (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 OF INSULIN 09/20/2016 MUMTAZ MOYA [employer] GOODS MENDER Ot V58.69 OTH MED,LT,CURRENT USE 09/20/2016 MUMTAZ MOYA [employer] MENDER Ot V86.0 ESTROGEN RECEPTOR POSITIVE STATUS [ER+] 09/20/2016 MUMTAZ MOYA [employer] MENDER Ot V87.41 PERSONAL HISTORY OF ANTINEOPLASTIC CHEMO 09/20/2016 MUMTAZ MOYA [employer] MENDER Ot 611.72 LUMP OR MASS IN BREAST 09/20/2016 MUMTAZ MOYA [employer] MENDER Ot 793.11 SOLITARY PULMONARY NODULE 09/20/2016 MUMTAZ MOYA [employer] MENDER Ot V10.3 HX OF BREAST MALIGNANCY 09/20/2016 MUMTAZ MOYA [employer] MENDER Ot V45.71 ACQUIRED ABSENCE OF BREAST AND NIPPLE 09/20/2016 MUMTAZ MOYA [employer] MENDER Ot V84.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 09/20/2016 MUMTAZ MOYA [employer] MENDER Ot 174.9 MALIGN NEOPL BREAST NOS 09/20/2016 MUMTAZ MOYA [employer] MENDER Ot 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 09/20/2016 MUMTAZ MOYA [employer] MENDER Ot 250.00 DIAB NESTOR WO COMPL, TYPE II OR UNSPEC TY 09/20/2016 MUMTAZ MOYA [employer] MENDER Ot 305.1 TOBACCO USE DISORDER 09/20/2016 MUMTAZ MOYA [employer] MENDER Ot 733.90 BONE CARTILAGE DIS NOS 09/20/2016 MUMTAZ MOYA [employer] MENDER Ot V15.3 HX OF IRRADIATION 09/20/2016 MUMTAZ MOYA [employer] MENDER Ot V45.71 ACQUIRED ABSENCE OF BREAST AND NIPPLE 09/20/2016 MUMTAZ MOYA [employer] MENDER Ot V58.67 LONG-TERM (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 OF INSULIN 09/20/2016 MUMTAZ MOYA [employer] MENDER Ot V58.69 OTH MED,LT,CURRENT USE 09/20/2016 DC MOYARICHARD Coby [employer] MENDER Ot V86.0 ESTROGEN RECEPTOR POSITIVE STATUS [ER+] 09/20/2016 DC MOYARICHARD Tenorio [employer] MENDER Ot V87.41 PERSONAL HISTORY OF ANTINEOPLASTIC CHEMO 09/20/2016 MUMTAZ MOYA [employer] MENDER Ot 174.9 MALIGN NEOPL BREAST NOS 09/20/2016 MUMTAZ MOYAP Ot 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 09/20/2016 MUMTAZ MOYA Ot 733.90 BONE CARTILAGE DIS NOS 09/20/2016 MUMTAZ MOYAP Ot 793.11 SOLITARY PULMONARY NODULE 09/20/2016 MUMTAZ MOYA Ot V84.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 09/20/2016 ENDER PAZ Ot E10.9 TYPE 1 DIABETES MELLITUS WITHOUT COMPLIC 09/20/2016 ENDER PAZ Ot E66.8 OTHER OBESITY 09/20/2016 ENDER PAZ Ot I10 ESSENTIAL (PRIMARY) HYPERTENSION 09/20/2016 ENDER PAZ Ot R60.9 EDEMA, UNSPECIFIED 09/20/2016 JASPER GREEN, MARK Willoughby Ot M06.9 RHEUMATOID ARTHRITIS, UNSPECIFIED 09/20/2016 MUMTAZ MOYAP Ot C50.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 09/20/2016 MUMTAZ MOYAP Ot C77.3 SEC AND UNSP MALIG NEOPLASM OF AXILLA AN 09/20/2016 MUMTAZ MOYAP Ot M85.80 OTH DISRD OF BONE DENSITY AND STRUCTURE, 09/20/2016 MUMTAZ MOYA [employer] MENDER Ot Z15.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 09/20/2016 MUMTAZ MOYA [employer] MENDER Ot Z17.0 ESTROGEN RECEPTOR POSITIVE STATUS [ER+] 09/20/2016 MUMTAZ MOYA [employer] MENDER Ot Z79.811 FCI (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 OF AROMATASE INH 09/20/2016 MUMTAZ MOYA [employer] MENDER Ot Z90.11 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 09/20/2016 MUMTAZ MOYA [employer] MENDER Ot Z92.3 PERSONAL HISTORY OF IRRADIATION 09/20/2016 MUMTAZ MOYAP Ot 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 09/20/2016 MUMTAZ MOYA [employer] MENDER Ot 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 09/20/2016 MUMTAZ MOYAP Ot C77.3 SEC AND UNSP MALIG NEOPLASM OF AXILLA AN 09/20/2016 MUMTAZ MOYAP Ot M85.80 OTH DISRD OF BONE DENSITY AND STRUCTURE, 09/20/2016 MUMTAZ MOYA [employer] MENDER Ot Z17.0 ESTROGEN RECEPTOR POSITIVE STATUS [ER+] 09/20/2016 MOYAMUMTAZ Tenorio [employer] MENDER Ot Z79.811 [facility]CI (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 OF AROMATASE INH 09/20/2016 MUMTAZ MOYA [employer] MENDER Ot Z90.11 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 09/20/2016 MUMTAZ MOYA [employer] MENDER Ot Z92.3 PERSONAL HISTORY OF IRRADIATION 09/20/2016 MUMTAZ MOYA [employer] MENDER Ot 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 09/20/2016 MUMTAZ MOYA [employer] MENDER Ot Z85.3 PERSONAL HISTORY OF MALIGNANT NEOPLASM O 09/20/2016 MUMTAZ MOYA [employer] MENDER Ot Z90.11 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 09/20/2016 KAREEM PENN Ot 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 09/20/2016 KAREEM PENN Ot C77.3 SEC AND UNSP MALIG NEOPLASM OF AXILLA AN 09/20/2016 KAREEM PENN Ot M85.80 OTH DISRD OF BONE DENSITY AND STRUCTURE, 09/20/2016 KAREEM PENN Ot R10.11 RIGHT UPPER QUADRANT PAIN 09/20/2016 KAREEM PENN Ot Z17.0 ESTROGEN RECEPTOR POSITIVE STATUS [ER+] 09/20/2016 KAREEM PENN Ot 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 09/20/2016 KAREEM PENN Ot Z90.11 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 09/20/2016 KAREEM PENN Ot Z92.3 PERSONAL HISTORY OF IRRADIATION 09/21/2016 KAREEM PENN Ot 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 09/21/2016 KAREEM PENN Ot C77.3 SEC AND UNSP MALIG NEOPLASM OF AXILLA AN 09/21/2016 KAREEM PENN Ot M85.80 OT DISRD OF BONE DENSITY AND STRUCTURE, 09/21/2016 KAREEM PENN Ot R10.11 RIGHT UPPER QUADRANT PAIN 09/21/2016 KAREEM PENN Ot Z17.0 ESTROGEN RECEPTOR POSITIVE STATUS [ER+] 09/21/2016 KAREEM PENN Ot Z79.811 [facility]CI (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 OF AROMATASE INH 09/21/2016 KAREEM PENN Ot Z90.11 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 09/21/2016 KAREEM PENN Ot Z92.3 PERSONAL HISTORY OF IRRADIATION 10/21/2016 Ot 611.72 LUMP OR MASS IN BREAST 10/21/2016 Ot 793.81 MAMMOGRAPHIC MICROCLACIFICATION 10/21/2016 Ot 174.9 MALIGN NEOPL BREAST NOS 10/21/2016 Ot V58.69 OT MED,LT, CURRENT USE 10/21/2016 Ot 174.4 MAL PAWEL BREAST UP-OUTER 10/21/2016 Ot 196.3 MAL PAWEL LYMPH -AXILLA/ARM 10/21/2016 Ot V58.11 ENCOUNTER FOR ANTINEOPLASTIC CHEMOTHERAP 10/21/2016 Ot V58.69 OT MED,LT, CURRENT USE 10/21/2016 Ot V86.0 ESTROGEN RECEPTOR POSITIVE STATUS [ER+] 10/21/2016 Ot 174.9 MALIGN NEOPL BREAST NOS 10/21/2016 Ot 276.69 OTHER FLUID OVERLOAD 10/21/2016 Ot 397.0 TRICUSPID VALVE DISEASE 10/21/2016 Ot 424.0 MITRAL VALVE DISORDER 10/21/2016 Ot V58.69 OT MED,LT, CURRENT USE 10/21/2016 Ot V58.83 ENCOUNTER FOR THERAPEUTIC DRUG MONITORIN 10/21/2016 Ot V87.41 PERSONAL HISTORY OF ANTINEOPLASTIC CHEMO 10/21/2016 Ot 174.9 MALIGN NEOPL BREAST NOS 10/21/2016 Ot V58.69 OTH MED,LT, CURRENT USE 10/21/2016 Ot V87.41 PERSONAL HISTORY OF ANTINEOPLASTIC CHEMO 10/21/2016 Ot V58.69 OTH MED,LT, CURRENT USE 10/21/2016 Ot V58.83 ENCOUNTER FOR THERAPEUTIC DRUG MONITORIN 10/21/2016 Ot 428.0 CONGESTIVE HEART FAILURE NOS 10/21/2016 KAREEM PENN N Ot 996.74 OTH COMPL DUE TO OT VASCULAR DEVICE,IMP 10/21/2016 KEY JOSE [employer] MENDER Ot 729.5 PAIN IN LIMB 10/21/2016 EUGENIO BELTRAN [employer] MENDER Ot 729.5 PAIN IN LIMB 10/21/2016 EUGENIO BELTRAN [employer] MENDER Ot 729.81 SWELLING OF LIMB 10/21/2016 MUMTAZ MOYA [employer] MENDER Ot 174.4 MAL PAWEL BREAST UP-OUTER 10/21/2016 MUMTAZ MOYA [employer] MENDER Ot 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 10/21/2016 MUMTAZ MOYA [employer] MENDER Ot 250.00 DIAB NESTOR WO COMPL, TYPE II OR UNSPEC TY 10/21/2016 MUMTAZ MOYA [employer] MENDER Ot 782.3 EDEMA 10/21/2016 MUMTAZ MOYAP Ot V45.71 ACQUIRED ABSENCE OF BREAST AND NIPPLE 10/21/2016 MUMTAZ MOYA [employer] MENDER Ot V58.67 LONG-TERM (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 OF INSULIN 10/21/2016 MUMTAZ MOYAP Ot V58.69 OTH MED,LT,CURRENT USE 10/21/2016 MUMTAZ MOYA [employer] MENDER Ot V86.0 ESTROGEN RECEPTOR POSITIVE STATUS [ER+] 10/21/2016 MUMTAZ MOYA [employer] MENDER Ot 397.0 TRICUSPID VALVE DISEASE 10/21/2016 MUMTAZ MOYA [employer] MENDER Ot 424.0 MITRAL VALVE DISORDER 10/21/2016 MUMTAZ MOYAP Ot 782.3 EDEMA 10/21/2016 MUMTAZ MOYAP Ot V58.69 OTH MED,LT,CURRENT USE 10/21/2016 MUMTAZ MOYAP Ot V58.83 ENCOUNTER FOR THERAPEUTIC DRUG MONITORIN 10/21/2016 MOYA, HILAH S [employer] MENDER Ot V87.41 PERSONAL HISTORY OF ANTINEOPLASTIC CHEMO 10/21/2016 MUMTAZ MOYA S [employer] MENDER Ot 174.4 MAL PAWEL BREAST UP-OUTER 10/21/2016 MUMTAZ MOYA S [employer] MENDER Ot 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 10/21/2016 MUMTAZ MOAY S [employer] MENDER Ot 250.00 DIAB NESTOR WO COMPL, TYPE II OR UNSPEC TY 10/21/2016 MUMTAZ MOYA [employer] MENDER Ot 457.1 OTHER LYMPHEDEMA 10/21/2016 MUMTAZ MOYA S [employer] MENDER Ot 782.3 EDEMA 10/21/2016 MUMTAZ MOYA S [employer] MENDER Ot V45.71 ACQUIRED ABSENCE OF BREAST AND NIPPLE 10/21/2016 MUMTAZ MOYA S [employer] MENDER Ot V58.67 LONG-TERM (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 OF INSULIN 10/21/2016 MUMTAZ MOYA [employer] MENDER Ot V58.69 OTH MED,LT,CURRENT USE 10/21/2016 MUMTAZ MOYA [employer] MENDER Ot V86.0 ESTROGEN RECEPTOR POSITIVE STATUS [ER+] 10/21/2016 MUMTAZ MOYA S [employer] MENDER Ot 174.4 MAL PAWEL BREAST UP-OUTER 10/21/2016 MUMTAZ MOYA S [employer] MENDER Ot 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 10/21/2016 MUMTAZ MOYA S [employer] MENDER Ot 250.00 DIAB NESTOR WO COMPL, TYPE II OR UNSPEC TY 10/21/2016 MUMTAZ MOYA [employer] MENDER Ot V45.71 ACQUIRED ABSENCE OF BREAST AND NIPPLE 10/21/2016 MUMTAZ MOYA S [employer] MENDER Ot V58.67 LONG-TERM (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 OF INSULIN 10/21/2016 MUMTAZ MOYA S [employer] MENDER Ot V58.69 OTH MED,LT,CURRENT USE 10/21/2016 MUMTAZ MOYA S [employer] MENDER Ot V86.0 ESTROGEN RECEPTOR POSITIVE STATUS [ER+] 10/21/2016 MUMTAZ MOYA [employer] MENDER Ot 174.9 MALIGN NEOPL BREAST NOS 10/21/2016 MUMTAZ MOYA S [employer] MENDER Ot 397.0 TRICUSPID VALVE DISEASE 10/21/2016 MUMTAZ MOYA [employer] MENDER Ot 424.0 MITRAL VALVE DISORDER 10/21/2016 MUMTAZ MOYA S [employer] MENDER Ot 733.90 BONE CARTILAGE DIS NOS 10/21/2016 MUMTAZ MOYA [employer] MENDER Ot V58.69 OTH MED,LT,CURRENT USE 10/21/2016 MUMTAZ MOYA [employer] MENDER Ot 174.9 MALIGN NEOPL BREAST NOS 10/21/2016 MUMTAZ MOYA [employer] MENDER Ot 250.00 DIAB NESTOR WO COMPL, TYPE II OR UNSPEC TY 10/21/2016 MUMTAZ MOYA [employer] MENDER Ot 397.0 TRICUSPID VALVE DISEASE 10/21/2016 MUMTAZ MOYA [employer] MENDER Ot 424.0 MITRAL VALVE DISORDER 10/21/2016 MUMTAZ MOYA [employer] MENDER Ot 733.90 BONE CARTILAGE DIS NOS 10/21/2016 MUMTAZ MOYA [employer] MENDER Ot V45.71 ACQUIRED ABSENCE OF BREAST AND NIPPLE 10/21/2016 MUMTAZ MOYA [employer] MENDER Ot V58.67 LONG-TERM (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 OF INSULIN 10/21/2016 MUMTAZ MOYA [employer] MENDER Ot V58.69 OTH MED,LT,CURRENT USE 10/21/2016 MUMTAZ MOYA [employer] MENDER Ot V86.0 ESTROGEN RECEPTOR POSITIVE STATUS [ER+] 10/21/2016 MUMTAZ MOYA [employer] MENDER Ot 174.9 MALIGN NEOPL BREAST NOS 10/21/2016 MUMTAZ MOYA [employer] MENDER Ot 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 10/21/2016 MUMTAZ MOYA [employer] MENDER Ot 244.9 HYPOTHYROIDISM NOS 10/21/2016 MUMTAZ MOYA [employer] MENDER Ot 250.00 DIAB NESTOR WO COMPL, TYPE II OR UNSPEC TY 10/21/2016 MUMTAZ MOYA [employer] MENDER Ot V45.71 ACQUIRED ABSENCE OF BREAST AND NIPPLE 10/21/2016 MUMTAZ MOYA [employer] MENDER Ot V58.67 LONG-TERM (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 OF INSULIN 10/21/2016 MUMTAZ MOYA [employer] MENDER Ot V58.69 OTH MED,LT,CURRENT USE 10/21/2016 MUMTAZ MOYA S [employer] MENDER Ot V86.0 ESTROGEN RECEPTOR POSITIVE STATUS [ER+] 10/21/2016 MUMTAZ MOYA S [employer] MENDER Ot V87.41 PERSONAL HISTORY OF ANTINEOPLASTIC CHEMO 10/21/2016 MUMTAZ MOYA S [employer] MENDER Ot 174.9 MALIGN NEOPL BREAST NOS 10/21/2016 MUMTAZ MOYA S [employer] MENDER Ot 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 10/21/2016 MUMTAZ MOYA [employer] MENDER Ot 244.9 HYPOTHYROIDISM NOS 10/21/2016 MUMTAZ MOYA [employer] MENDER Ot 250.00 DIAB NESTOR WO COMPL, TYPE II OR UNSPEC TY 10/21/2016 MUMTAZ MOYA [employer] MENDER Ot V45.71 ACQUIRED ABSENCE OF BREAST AND NIPPLE 10/21/2016 MUMTAZ MOYA [employer] MENDER Ot V58.67 LONG-TERM (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 OF INSULIN 10/21/2016 MUMTAZ MOYA [employer] MENDER Ot V58.69 OTH MED,LT,CURRENT USE 10/21/2016 MUMTAZ MOYA [employer] MENDER Ot V86.0 ESTROGEN RECEPTOR POSITIVE STATUS [ER+] 10/21/2016 MUMTAZ MOYA [employer] MENDER Ot V87.41 PERSONAL HISTORY OF ANTINEOPLASTIC CHEMO 10/21/2016 MUMTAZ MOYA [employer] MENDER Ot 174.9 MALIGN NEOPL BREAST NOS 10/21/2016 MUMTAZ MOYA [employer] MENDER Ot 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 10/21/2016 MUMTAZ MOYA [employer] MENDER Ot V15.3 HX OF IRRADIATION 10/21/2016 MUMTAZ MOYA [employer] MENDER Ot V45.71 ACQUIRED ABSENCE OF BREAST AND NIPPLE 10/21/2016 MUMTAZ MOYAP Ot V58.69 OTH MED,LT,CURRENT USE 10/21/2016 MUMTAZ MOYA [employer] MENDER Ot V86.0 ESTROGEN RECEPTOR POSITIVE STATUS [ER+] 10/21/2016 MUMTAZ MOYA [employer] MENDER Ot V87.41 PERSONAL HISTORY OF ANTINEOPLASTIC CHEMO 10/21/2016 MUMTAZ MOYA [employer] MENDER Ot 174.9 MALIGN NEOPL BREAST NOS 10/21/2016 MUMTAZ MOYA [employer] MENDER Ot 397.0 TRICUSPID VALVE DISEASE 10/21/2016 MUMTAZ MOYA [employer] MENDER Ot 424.0 MITRAL VALVE DISORDER 10/21/2016 MUMTAZ MOYAP Ot V58.69 OTH MED,LT,CURRENT USE 10/21/2016 MUMTAZ MOYA [employer] MENDER Ot V58.83 ENCOUNTER FOR THERAPEUTIC DRUG MONITORIN 10/21/2016 MUMTAZ MOYA [employer] MENDER Ot V87.41 PERSONAL HISTORY OF ANTINEOPLASTIC CHEMO 10/21/2016 MUMTAZ MOYA [employer] MENDER Ot 174.9 MALIGN NEOPL BREAST NOS 10/21/2016 DC MOYARICHARD Coby [employer] MENDER Ot 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 10/21/2016 MUMTAZ MOYA [employer] MENDER Ot V15.3 HX OF IRRADIATION 10/21/2016 MUMTAZ MOYA [employer] MENDER Ot V16.41 FAM HX-MAL NEOP-OVARY 10/21/2016 MUMTAZ MOYAP Ot V45.71 ACQUIRED ABSENCE OF BREAST AND NIPPLE 10/21/2016 MUMTAZ MOYAP Ot V58.69 OTH MED,LT,CURRENT USE 10/21/2016 MUMTAZ MOYA [employer] MENDER Ot V86.0 ESTROGEN RECEPTOR POSITIVE STATUS [ER+] 10/21/2016 MUMTAZ MOYAP Ot V87.41 PERSONAL HISTORY OF ANTINEOPLASTIC CHEMO 10/21/2016 MUMTAZ MOYA [employer] MENDER Ot 174.9 MALIGN NEOPL BREAST NOS 10/21/2016 MUMTAZ MOYAP Ot 793.11 SOLITARY PULMONARY NODULE 10/21/2016 Ot 174.4 MAL PAWEL BREAST UP-OUTER 10/21/2016 Ot 196.3 MAL PAWEL LYMPH -AXILLA/ARM 10/21/2016 Ot V58.11 ENCOUNTER FOR ANTINEOPLASTIC CHEMOTHERAP 10/21/2016 Ot V58.69 OTH MED,LT, CURRENT USE 10/21/2016 Ot V86.0 ESTROGEN RECEPTOR POSITIVE STATUS [ER+] 10/21/2016 MUMTAZ MOYA [employer] MENDER Ot 174.9 MALIGN NEOPL BREAST NOS 10/21/2016 MUMTAZ MOYAP Ot 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 10/21/2016 MUMTAZ MOYA [employer] MENDER Ot V15.3 HX OF IRRADIATION 10/21/2016 MUMTAZ MOYAP Ot V16.41 FAM HX-MAL NEOP-OVARY 10/21/2016 MUMTAZ MOYA [employer] MENDER Ot V45.71 ACQUIRED ABSENCE OF BREAST AND NIPPLE 10/21/2016 MUMTAZ MOYA [employer] MENDER Ot V58.69 OTH MED,LT,CURRENT USE 10/21/2016 MUMTAZ MOYA [employer] MENDER Ot V86.0 ESTROGEN RECEPTOR POSITIVE STATUS [ER+] 10/21/2016 MUMTAZ MOYA [employer] MENDER Ot V87.41 PERSONAL HISTORY OF ANTINEOPLASTIC CHEMO 10/21/2016 MOYA MUMTAZ Coby [employer] MENDER Ot 174.9 MALIGN NEOPL BREAST NOS 10/21/2016 DC MOYARICHARD Coby [employer] MENDER Ot 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 10/21/2016 DC MOYARICHARD Tenorio [employer] MENDER Ot V15.3 HX OF IRRADIATION 10/21/2016 DC MOYARICHARD Tenorio [employer] MENDER Ot V16.41 FAM HX-MAL NEOP-OVARY 10/21/2016 GRIFFIN MUMTAZ Tenorio [employer] MENDER Ot V45.71 ACQUIRED ABSENCE OF BREAST AND NIPPLE 10/21/2016 GRIFFIN MUMTAZ Coby [employer] MENDER Ot V58.69 OTH MED,LT,CURRENT USE 10/21/2016 DC MOYARICHARD Tenorio [employer] MENDER Ot V86.0 ESTROGEN RECEPTOR POSITIVE STATUS [ER+] 10/21/2016 GRIFFIN MUMTAZ Tenorio [employer] MENDER Ot V87.41 PERSONAL HISTORY OF ANTINEOPLASTIC CHEMO 10/21/2016 MUMTAZ MOYA [employer] MENDER Ot 174.9 MALIGN NEOPL BREAST NOS 10/21/2016 MUMTAZ MOYA [employer] MENDER Ot 174.9 MALIGN NEOPL BREAST NOS 10/21/2016 DC MOYARICHARD Coby [employer] MENDER Ot 793.11 SOLITARY PULMONARY NODULE 10/21/2016 ADRI GREEN, MADELINE Jackson Ot 174.9 MALIGN NEOPL BREAST NOS 10/21/2016 ADRI GREEN, MADELINE Jackson Ot 244.9 HYPOTHYROIDISM NOS 10/21/2016 MADELINE IVAN MD Ot 397.0 TRICUSPID VALVE DISEASE 10/21/2016 MADELINE IVAN MD J Ot 401.9 HYPERTENSION NOS 10/21/2016 MADELINE IVAN MD J Ot 424.0 MITRAL VALVE DISORDER 10/21/2016 ADRI GREEN, MADELINE J Ot 782.3 EDEMA 10/21/2016 MUMTAZ MOYA [employer] MENDER Ot 174.9 MALIGN NEOPL BREAST NOS 10/21/2016 KAREEM PENN Ot 174.9 MALIGN NEOPL BREAST NOS 10/21/2016 KAREEM PENN Ot 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 10/21/2016 KAREEM PENN Ot V15.3 HX OF IRRADIATION 10/21/2016 KAREEM PENN Ot V45.71 ACQUIRED ABSENCE OF BREAST AND NIPPLE 10/21/2016 KAREEM PENN Ot V58.69 OTH MED,LT,CURRENT USE 10/21/2016 KAREEM PENN Ot V86.0 ESTROGEN RECEPTOR POSITIVE STATUS [ER+] 10/21/2016 KAREEM PENN Ot V87.41 PERSONAL HISTORY OF ANTINEOPLASTIC CHEMO 10/21/2016 MUMTAZ MOYA [employer] MENDER Ot 174.9 MALIGN NEOPL BREAST NOS 10/21/2016 MUMTAZ MOYA [employer] MENDER Ot 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 10/21/2016 MUMTAZ MOYA [employer] MENDER Ot 250.00 DIAB NESTOR WO COMPL, TYPE II OR UNSPEC TY 10/21/2016 MUMTAZ MOYA [employer] MENDER Ot 305.1 TOBACCO USE DISORDER 10/21/2016 MUMTAZ MOYA [employer] MENDER Ot V15.3 HX OF IRRADIATION 10/21/2016 MUMTAZ MOYA [employer] MENDER Ot V45.71 ACQUIRED ABSENCE OF BREAST AND NIPPLE 10/21/2016 MUMTAZ MOYA [employer] MENDER Ot V58.67 LONG-TERM (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 OF INSULIN 10/21/2016 MUMTAZ MOYA [employer] MENDER Ot V58.69 OTH MED,LT,CURRENT USE 10/21/2016 MUMATZ MOYA [employer] MENDER Ot V86.0 ESTROGEN RECEPTOR POSITIVE STATUS [ER+] 10/21/2016 MUMTAZ MOYA [employer] MENDER Ot V87.41 PERSONAL HISTORY OF ANTINEOPLASTIC CHEMO 10/21/2016 MUMTAZ MOYA [employer] MENDER Ot 611.72 LUMP OR MASS IN BREAST 10/21/2016 MUMTAZ MOYA [employer] MENDER Ot 793.11 SOLITARY PULMONARY NODULE 10/21/2016 MUMTAZ MOYA [employer] MENDER Ot V10.3 HX OF BREAST MALIGNANCY 10/21/2016 MUMTAZ MOYA [employer] MENDER Ot V45.71 ACQUIRED ABSENCE OF BREAST AND NIPPLE 10/21/2016 MUMTAZ MOYA [employer] MENDER Ot V84.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 10/21/2016 MUMTAZ MOYA [employer] MENDER Ot 174.9 MALIGN NEOPL BREAST NOS 10/21/2016 MUMTAZ MOYA [employer] MENDER Ot 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 10/21/2016 MUMTAZ MOYA [employer] MENDER Ot 250.00 DIAB NESTOR WO COMPL, TYPE II OR UNSPEC TY 10/21/2016 MUMTAZ MOYA [employer] MENDER Ot 305.1 TOBACCO USE DISORDER 10/21/2016 MUMTAZ MOYA [employer] MENDER Ot 733.90 BONE CARTILAGE DIS NOS 10/21/2016 MUMTAZ MOYA [employer] MENDER Ot V15.3 HX OF IRRADIATION 10/21/2016 MUMTAZ MOYA [employer] MENDER Ot V45.71 ACQUIRED ABSENCE OF BREAST AND NIPPLE 10/21/2016 MUMTAZ MOYA [employer] MENDER Ot V58.67 LONG-TERM (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 OF INSULIN 10/21/2016 MUMTAZ MOYAP Ot V58.69 OT MED,LT,CURRENT USE 10/21/2016 MUMTAZ MOYA [employer] MENDER Ot V86.0 ESTROGEN RECEPTOR POSITIVE STATUS [ER+] 10/21/2016 MUMTAZ MOYA [employer] MENDER Ot V87.41 PERSONAL HISTORY OF ANTINEOPLASTIC CHEMO 10/21/2016 MUMTAZ MOYA [employer] MENDER Ot 174.9 MALIGN NEOPL BREAST NOS 10/21/2016 MUMTAZ MOYAP Ot 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 10/21/2016 MUMTAZ MOYA [employer] MENDER Ot 733.90 BONE CARTILAGE DIS NOS 10/21/2016 MUMTAZ MOYAP Ot 793.11 SOLITARY PULMONARY NODULE 10/21/2016 MUMTAZ MOYA [employer] MENDER Ot V84.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 10/21/2016 ENDER PAZ Ot E10.9 TYPE 1 DIABETES MELLITUS WITHOUT COMPLIC 10/21/2016 ENDER PAZ Ot E66.8 OTHER OBESITY 10/21/2016 ENDER PAZ Ot I10 ESSENTIAL (PRIMARY) HYPERTENSION 10/21/2016 ENDER PAZ Ot R60.9 EDEMA, UNSPECIFIED 10/21/2016 JASPER GREEN, MARK Willoughby Ot M06.9 RHEUMATOID ARTHRITIS, UNSPECIFIED 10/21/2016 MUMTAZ MOYAP Ot C50.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 10/21/2016 MUMTAZ MOYAP Ot C77.3 SEC AND UNSP MALIG NEOPLASM OF AXILLA AN 10/21/2016 MUMTAZ MOYA [employer] MENDER Ot M85.80 OT DISRD OF BONE DENSITY AND STRUCTURE, 10/21/2016 MUMTAZ MOYA [employer] MENDER Ot Z15.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 10/21/2016 MUMTAZ MOYA [employer] MENDER Ot Z17.0 ESTROGEN RECEPTOR POSITIVE STATUS [ER+] 10/21/2016 MUMTAZ MOYA [employer] MENDER Ot 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 10/21/2016 MUMTAZ MOYA [employer] MENDER Ot Z90.11 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 10/21/2016 MOYAMUMTAZ Tenorio [employer] MENDER Ot Z92.3 PERSONAL HISTORY OF IRRADIATION 10/21/2016 MUMTAZ MOYAP Ot 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 10/21/2016 MOYAMUMTAZ Tenorio [employer] Ot 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 10/21/2016 MUMTAZ MOYAP Ot C77.3 SEC AND UNSP MALIG NEOPLASM OF AXILLA AN 10/21/2016 MOYAMUMTAZ TenorioP Ot M85.80 OTH DISRD OF BONE DENSITY AND STRUCTURE, 10/21/2016 MUMTAZ MOYAP Ot Z17.0 ESTROGEN RECEPTOR POSITIVE STATUS [ER+] 10/21/2016 MUMTAZ MOYAP Ot Z79.811 [facility] (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 OF AROMATASE INH 10/21/2016 MUMTAZ MOYA [employer] Ot Z90.11 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 10/21/2016 MOYAMUMTAZ Tenorio [employer] Ot Z92.3 PERSONAL HISTORY OF IRRADIATION 10/21/2016 MOYAMUMTAZ Tenorio [employer] M[employer] Ot 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 10/21/2016 MOYAMUMTAZ Tenorio [employer] Ot Z85.3 PERSONAL HISTORY OF MALIGNANT NEOPLASM O 10/21/2016 MOYAMUMTAZ Tenorio [employer] Ot Z90.11 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 10/21/2016 KAREEM PENN Ot 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 10/21/2016 KAREEM PENN Ot C77.3 SEC AND UNSP MALIG NEOPLASM OF AXILLA AN 10/21/2016 KAREEM PENN Ot M85.80 OTH DISRD OF BONE DENSITY AND STRUCTURE, 10/21/2016 KAREEM PENN Ot R10.11 RIGHT UPPER QUADRANT PAIN 10/21/2016 KAREEM PENN Ot Z17.0 ESTROGEN RECEPTOR POSITIVE STATUS [ER+] 10/21/2016 KAREEM PENN Ot Z79.811 [facility] (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 OF AROMATASE INH 10/21/2016 KAREEM PENN Ot Z90.11 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 10/21/2016 KAREEM PENN Ot Z92.3 PERSONAL HISTORY OF IRRADIATION 10/23/2016 ABIMAEL MEEK MD Ot E03.9 HYPOTHYROIDISM, UNSPECIFIED 10/23/2016 ABIMAEL MEEK MD Ot E11.9 TYPE 2 DIABETES MELLITUS WITHOUT COMPLIC 10/23/2016 ABIMAEL MEEK MD Ot F17.210 NICOTINE DEPENDENCE, CIGARETTES, UNCOMPL 10/23/2016 ABIMAEL MEEK MD Ot R11.2 NAUSEA WITH VOMITING, UNSPECIFIED 10/23/2016 ABIMAEL MEEK MD Ot 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 10/23/2016 ABIMAEL MEEK MD Ot 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 10/23/2016 ABIMAEL MEEK MD Ot D64.9 ANEMIA, UNSPECIFIED 10/23/2016 ABIMAEL MEEK MD Ot E03.9 HYPOTHYROIDISM, UNSPECIFIED 10/23/2016 ABIMAEL MEEK MD Ot E11.9 TYPE 2 DIABETES MELLITUS WITHOUT COMPLIC 10/23/2016 ABIMAEL MEEK MD Ot E13.10 OTH DIABETES MELLITUS WITH KETOACIDOSIS 10/23/2016 ABIMAEL MEEK MD Ot E78.5 HYPERLIPIDEMIA, UNSPECIFIED 10/23/2016 ABIMAEL MEEK MD Ot E83.42 HYPOMAGNESEMIA 10/23/2016 ABIMAEL MEEK MD Ot E87.6 HYPOKALEMIA 10/23/2016 ABIMAEL MEEK MD Ot F17.210 NICOTINE DEPENDENCE, CIGARETTES, UNCOMPL 10/23/2016 ABIMAEL MEEK MD Ot N17.9 ACUTE KIDNEY FAILURE, UNSPECIFIED 10/23/2016 ABIMAEL MEEK MD Ot R11.2 NAUSEA WITH VOMITING, UNSPECIFIED 10/23/2016 ABIMAEL MEEK MD Ot 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 10/26/2016 Ot 611.72 LUMP OR MASS IN BREAST 10/26/2016 Ot 793.81 MAMMOGRAPHIC MICROCLACIFICATION 10/26/2016 Ot 174.9 MALIGN NEOPL BREAST NOS 10/26/2016 Ot V58.69 OTH MED,LT, CURRENT USE 10/26/2016 Ot 174.4 MAL PAWEL BREAST UP-OUTER 10/26/2016 Ot 196.3 MAL PAWEL LYMPH -AXILLA/ARM 10/26/2016 Ot V58.11 ENCOUNTER FOR ANTINEOPLASTIC CHEMOTHERAP 10/26/2016 Ot V58.69 OTH MED,LT, CURRENT USE 10/26/2016 Ot V86.0 ESTROGEN RECEPTOR POSITIVE STATUS [ER+] 10/26/2016 Ot 174.9 MALIGN NEOPL BREAST NOS 10/26/2016 Ot 276.69 OTHER FLUID OVERLOAD 10/26/2016 Ot 397.0 TRICUSPID VALVE DISEASE 10/26/2016 Ot 424.0 MITRAL VALVE DISORDER 10/26/2016 Ot V58.69 OTH MED,LT, CURRENT USE 10/26/2016 Ot V58.83 ENCOUNTER FOR THERAPEUTIC DRUG MONITORIN 10/26/2016 Ot V87.41 PERSONAL HISTORY OF ANTINEOPLASTIC CHEMO 10/26/2016 Ot 174.9 MALIGN NEOPL BREAST NOS 10/26/2016 Ot V58.69 OTH MED,LT, CURRENT USE 10/26/2016 Ot V87.41 PERSONAL HISTORY OF ANTINEOPLASTIC CHEMO 10/26/2016 Ot V58.69 OTH MED,LT, CURRENT USE 10/26/2016 Ot V58.83 ENCOUNTER FOR THERAPEUTIC DRUG MONITORIN 10/26/2016 Ot 428.0 CONGESTIVE HEART FAILURE NOS 10/26/2016 KAREEM PENN N Ot 996.74 OTH COMPL DUE TO [facility] VASCULAR DEVICE,IMP 10/26/2016 KEY JOSE [employer] M[employer]ER Ot 729.5 PAIN IN LIMB 10/26/2016 EUGENIO BELTRAN [employer] Ot 729.5 PAIN IN LIMB 10/26/2016 EUGENIO BELTRAN [employer] Ot 729.81 SWELLING OF LIMB 10/26/2016 MUMTAZ MOYA Ot 174.4 MAL PAWEL BREAST UP-OUTER 10/26/2016 MUMTAZ MOYAP Ot 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 10/26/2016 MOYA, HILAH S [employer] M[employer]ER Ot 250.00 DIAB NESTOR WO COMPL, TYPE II OR UNSPEC TY 10/26/2016 MUMTAZ MOYA [employer] M[employer] Ot 782.3 EDEMA 10/26/2016 MUMTAZ MOYA [employer] M[employer] Ot V45.71 ACQUIRED ABSENCE OF BREAST AND NIPPLE 10/26/2016 MUMTAZ MOYA [employer] M[employer] Ot V58.67 LONG-TERM (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 OF INSULIN 10/26/2016 MUMTAZ MOYA [employer] M[employer] Ot V58.69 OTH MED,LT,CURRENT USE 10/26/2016 MUMTAZ MOYA [employer] M[employer] Ot V86.0 ESTROGEN RECEPTOR POSITIVE STATUS [ER+] 10/26/2016 MUMTAZ MOYA [employer] M[employer]ER Ot 397.0 TRICUSPID VALVE DISEASE 10/26/2016 MUMTAZ MOYA [employer] M[employer] Ot 424.0 MITRAL VALVE DISORDER 10/26/2016 MUMTAZ MOYA [employer] Ot 782.3 EDEMA 10/26/2016 MUMTAZ MOYAP Ot V58.69 OTH MED,LT,CURRENT USE 10/26/2016 MUMTAZ MOYA [employer] Ot V58.83 ENCOUNTER FOR THERAPEUTIC DRUG MONITORIN 10/26/2016 DC MOYARICHARD Coby [employer] Ot V87.41 PERSONAL HISTORY OF ANTINEOPLASTIC CHEMO 10/26/2016 MUMTAZ MOYA [employer] Ot 174.4 MAL PAWEL BREAST UP-OUTER 10/26/2016 MUMTAZ MOYA [employer] Ot 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 10/26/2016 MUMTAZ MOYA [employer] Ot 250.00 DIAB NESTOR WO COMPL, TYPE II OR UNSPEC TY 10/26/2016 MUMTAZ MOYA [employer] Ot 457.1 OTHER LYMPHEDEMA 10/26/2016 MUMTAZ MOYA [employer] Ot 782.3 EDEMA 10/26/2016 MUMTAZ MOYA [employer] M[employer] Ot V45.71 ACQUIRED ABSENCE OF BREAST AND NIPPLE 10/26/2016 MUMTAZ MOYA [employer] M[employer] Ot V58.67 LONG-TERM (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 OF INSULIN 10/26/2016 MUMTAZ MOYA [employer] M[employer] Ot V58.69 OTH MED,LT,CURRENT USE 10/26/2016 MUMTAZ MOYA [employer] M[employer]ER Ot V86.0 ESTROGEN RECEPTOR POSITIVE STATUS [ER+] 10/26/2016 MUMTAZ MOYA [employer] Ot 174.4 MAL PAWEL BREAST UP-OUTER 10/26/2016 MUMTAZ MOYA [employer] M[employer] Ot 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 10/26/2016 MUMTAZ MOYA [employer] M[employer]ER Ot 250.00 DIAB NESTOR WO COMPL, TYPE II OR UNSPEC TY 10/26/2016 MUMTAZ MOYA S [employer] M[employer]ER Ot V45.71 ACQUIRED ABSENCE OF BREAST AND NIPPLE 10/26/2016 MUMTAZ MOYA [employer] M[employer]ER Ot V58.67 LONG-TERM (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 OF INSULIN 10/26/2016 MUMTAZ MOYA [employer] M[employer]ER Ot V58.69 OTH MED,LT,CURRENT USE 10/26/2016 MUMTAZ MOYA [employer] M[employer]ER Ot V86.0 ESTROGEN RECEPTOR POSITIVE STATUS [ER+] 10/26/2016 MUMTAZ MOYA S [employer] M[employer]ER Ot 174.9 MALIGN NEOPL BREAST NOS 10/26/2016 MUMTAZ MOYA S [employer] M[employer]ER Ot 397.0 TRICUSPID VALVE DISEASE 10/26/2016 MUMTAZ MOYA S [employer] M[employer]ER Ot 424.0 MITRAL VALVE DISORDER 10/26/2016 MUMTAZ MOYA S [employer] Ot 733.90 BONE CARTILAGE DIS NOS 10/26/2016 DC MOYARICHARD Coby [employer] Ot V58.69 OTH MED,LT,CURRENT USE 10/26/2016 MUMTAZ MOYA [employer] M[employer] Ot 174.9 MALIGN NEOPL BREAST NOS 10/26/2016 MUMTAZ MOYA S [employer] M[employer]ER Ot 250.00 DIAB NESTOR WO COMPL, TYPE II OR UNSPEC TY 10/26/2016 MUMTAZ MOYA S [employer] M[employer]ER Ot 397.0 TRICUSPID VALVE DISEASE 10/26/2016 MUMTAZ MOYA S [employer] M[employer]ER Ot 424.0 MITRAL VALVE DISORDER 10/26/2016 MUMTAZ MOYA S [employer] M[employer]ER Ot 733.90 BONE CARTILAGE DIS NOS 10/26/2016 MUMTAZ MOYA [employer] M[employer]ER Ot V45.71 ACQUIRED ABSENCE OF BREAST AND NIPPLE 10/26/2016 MUMTAZ MOYA [employer] M[employer]ER Ot V58.67 LONG-TERM (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 OF INSULIN 10/26/2016 MUMTAZ MOYA [employer] M[employer]ER Ot V58.69 OTH MED,LT,CURRENT USE 10/26/2016 MUMTAZ MOYA S [employer] M[employer]ER Ot V86.0 ESTROGEN RECEPTOR POSITIVE STATUS [ER+] 10/26/2016 MUMTAZ MOYA S [employer] Ot 174.9 MALIGN NEOPL BREAST NOS 10/26/2016 MUMTAZ MOYA S [employer] M[employer]ER Ot 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 10/26/2016 MUMTAZ MOYA S [employer] M[employer]ER Ot 244.9 HYPOTHYROIDISM NOS 10/26/2016 DC MOYARICHARD S [employer]ER Ot 250.00 DIAB NESTOR WO COMPL, TYPE II OR UNSPEC TY 10/26/2016 MUMTAZ MOYA S [employer] M[employer]ER Ot V45.71 ACQUIRED ABSENCE OF BREAST AND NIPPLE 10/26/2016 MUMTAZ MOYA S [employer] M[employer]ER Ot V58.67 LONG-TERM (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 OF INSULIN 10/26/2016 MUMTAZ MOYA S [employer] M[employer]ER Ot V58.69 OTH MED,LT,CURRENT USE 10/26/2016 MUMTAZ MOYA S [employer] M[employer]ER Ot V86.0 ESTROGEN RECEPTOR POSITIVE STATUS [ER+] 10/26/2016 MUMTAZ MOYA S [employer] M[employer]ER Ot V87.41 PERSONAL HISTORY OF ANTINEOPLASTIC CHEMO 10/26/2016 MUMTAZ MOYA S [employer] M[employer] Ot 174.9 MALIGN NEOPL BREAST NOS 10/26/2016 MUMTAZ MOYA S [employer] M[employer]ER Ot 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 10/26/2016 MUMTAZ MOYA S [employer] M[employer]ER Ot 244.9 HYPOTHYROIDISM NOS 10/26/2016 MUMTAZ MOYA S [employer] M[employer]ER Ot 250.00 DIAB NESTOR WO COMPL, TYPE II OR UNSPEC TY 10/26/2016 DC MOYARICHARD S [employer] M[employer]ER Ot V45.71 ACQUIRED ABSENCE OF BREAST AND NIPPLE 10/26/2016 MUMTAZ MOYA S [employer] M[employer]ER Ot V58.67 LONG-TERM (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 OF INSULIN 10/26/2016 MUMTAZ MOYA S [employer] M[employer]ER Ot V58.69 OTH MED,LT,CURRENT USE 10/26/2016 MUMTAZ MOYA S [employer] M[employer]ER Ot V86.0 ESTROGEN RECEPTOR POSITIVE STATUS [ER+] 10/26/2016 MUMTAZ MOYA S [employer] M[employer]ER Ot V87.41 PERSONAL HISTORY OF ANTINEOPLASTIC CHEMO 10/26/2016 MUMTAZ MOYA S [employer] M[employer] Ot 174.9 MALIGN NEOPL BREAST NOS 10/26/2016 MUMTAZ MOYA S [employer] M[employer]ER Ot 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 10/26/2016 MUMTAZ MOYA S [employer] M[employer]ER Ot V15.3 HX OF IRRADIATION 10/26/2016 GRIFFIN MUMTAZ Tenorio [employer] Ot V45.71 ACQUIRED ABSENCE OF BREAST AND NIPPLE 10/26/2016 DC MOYARICHARD Coby [employer] Ot V58.69 OTH MED,LT,CURRENT USE 10/26/2016 DC MOYARICHARD Coby [employer] Ot V86.0 ESTROGEN RECEPTOR POSITIVE STATUS [ER+] 10/26/2016 MUMTAZ MOYA [employer] M[employer]ER Ot V87.41 PERSONAL HISTORY OF ANTINEOPLASTIC CHEMO 10/26/2016 MUMTAZ MOYA [employer] M[employer]ER Ot 174.9 MALIGN NEOPL BREAST NOS 10/26/2016 DC MOYARICHARD Coby [employer] Ot 397.0 TRICUSPID VALVE DISEASE 10/26/2016 MUMTAZ MOYA [employer] M[employer]ER Ot 424.0 MITRAL VALVE DISORDER 10/26/2016 DC MOYARICHARD Coby LYNNP Ot V58.69 OTH MED,LT,CURRENT USE 10/26/2016 DC MOYARICHARD Coby LYNNP Ot V58.83 ENCOUNTER FOR THERAPEUTIC DRUG MONITORIN 10/26/2016 MUMTAZ MOYA [employer] M[employer] Ot V87.41 PERSONAL HISTORY OF ANTINEOPLASTIC CHEMO 10/26/2016 MUMTAZ MOYA [employer] M[employer] Ot 174.9 MALIGN NEOPL BREAST NOS 10/26/2016 MUMTAZ MOYA [employer] M[employer]ER Ot 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 10/26/2016 MUMTAZ MOYA [employer] M[employer]ER Ot V15.3 HX OF IRRADIATION 10/26/2016 DC MOYARICHARD Coby [employer] Ot V16.41 FAM HX-MAL NEOP-OVARY 10/26/2016 MUMTAZ MOYA [employer] M[employer]ER Ot V45.71 ACQUIRED ABSENCE OF BREAST AND NIPPLE 10/26/2016 MUMTAZ MOYAP Ot V58.69 OTH MED,LT,CURRENT USE 10/26/2016 MUMTAZ MOYA [employer] M[employer]ER Ot V86.0 ESTROGEN RECEPTOR POSITIVE STATUS [ER+] 10/26/2016 MUMTAZ MOYA [employer] M[employer]ER Ot V87.41 PERSONAL HISTORY OF ANTINEOPLASTIC CHEMO 10/26/2016 MUMTAZ MOYA [employer] M[employer]ER Ot 174.9 MALIGN NEOPL BREAST NOS 10/26/2016 MUMTAZ MOYA [employer] M[employer]ER Ot 793.11 SOLITARY PULMONARY NODULE 10/26/2016 Ot 174.4 MAL PAWEL BREAST UP-OUTER 10/26/2016 Ot 196.3 MAL PAWEL LYMPH -AXILLA/ARM 10/26/2016 Ot V58.11 ENCOUNTER FOR ANTINEOPLASTIC CHEMOTHERAP 10/26/2016 Ot V58.69 OTH MED,LT, CURRENT USE 10/26/2016 Ot V86.0 ESTROGEN RECEPTOR POSITIVE STATUS [ER+] 10/26/2016 MUMTAZ MOYA [employer] Ot 174.9 MALIGN NEOPL BREAST NOS 10/26/2016 MUMTAZ MOYA [employer] M[employer] Ot 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 10/26/2016 MUMTAZ MOYA [employer] M[employer]ER Ot V15.3 HX OF IRRADIATION 10/26/2016 MUMTAZ MOYA [employer] M[employer]ER Ot V16.41 FAM HX-MAL NEOP-OVARY 10/26/2016 MUMTAZ MOYA [employer] MENDER Ot V45.71 ACQUIRED ABSENCE OF BREAST AND NIPPLE 10/26/2016 MUMTAZ MOYAP Ot V58.69 OTH MED,LT,CURRENT USE 10/26/2016 MUMTAZ MOYA [employer] M[employer]ER Ot V86.0 ESTROGEN RECEPTOR POSITIVE STATUS [ER+] 10/26/2016 MUMTAZ MOYA [employer] M[employer]ER Ot V87.41 PERSONAL HISTORY OF ANTINEOPLASTIC CHEMO 10/26/2016 MUMTAZ MOYA [employer] M[employer]ER Ot 174.9 MALIGN NEOPL BREAST NOS 10/26/2016 MUMTAZ MOYA [employer] M[employer]ER Ot 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 10/26/2016 MUMTAZ MOYA [employer] MENDER Ot V15.3 HX OF IRRADIATION 10/26/2016 MUMTAZ MOYA [employer] M[employer]ER Ot V16.41 FAM HX-MAL NEOP-OVARY 10/26/2016 MUMTAZ MOYA [employer] MENDER Ot V45.71 ACQUIRED ABSENCE OF BREAST AND NIPPLE 10/26/2016 MUMTAZ MOYA [employer] M[employer]ER Ot V58.69 OTH MED,LT,CURRENT USE 10/26/2016 MUMTAZ MOYA [employer] M[employer]ER Ot V86.0 ESTROGEN RECEPTOR POSITIVE STATUS [ER+] 10/26/2016 MUMTAZ MOYA [employer] M[employer]ER Ot V87.41 PERSONAL HISTORY OF ANTINEOPLASTIC CHEMO 10/26/2016 MUMTAZ MOYA [employer] M[employer]ER Ot 174.9 MALIGN NEOPL BREAST NOS 10/26/2016 MUMTAZ MOYA [employer] M[employer]ER Ot 174.9 MALIGN NEOPL BREAST NOS 10/26/2016 MUMTAZ MOYA [employer] M[employer]ER Ot 793.11 SOLITARY PULMONARY NODULE 10/26/2016 ADRI GREEN, MADELINE Jackson Ot 174.9 MALIGN NEOPL BREAST NOS 10/26/2016 ADRI GREEN, MADELINE Jackson Ot 244.9 HYPOTHYROIDISM NOS 10/26/2016 MADELINE IVAN MD Ot 397.0 TRICUSPID VALVE DISEASE 10/26/2016 MADELINE IVAN MD Ot 401.9 HYPERTENSION NOS 10/26/2016 MADELINE IVAN MD Ot 424.0 MITRAL VALVE DISORDER 10/26/2016 MADELINE IVAN MD Ot 782.3 EDEMA 10/26/2016 MUMTAZ MOYAP Ot 174.9 MALIGN NEOPL BREAST NOS 10/26/2016 KAREEM PENN Ot 174.9 MALIGN NEOPL BREAST NOS 10/26/2016 KAREEM PENN Ot 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 10/26/2016 KAREEM PENN Ot V15.3 HX OF IRRADIATION 10/26/2016 KAREEM PENN Ot V45.71 ACQUIRED ABSENCE OF BREAST AND NIPPLE 10/26/2016 KAREEM PENN Ot V58.69 OTH MED,LT,CURRENT USE 10/26/2016 KAREEM PENN Ot V86.0 ESTROGEN RECEPTOR POSITIVE STATUS [ER+] 10/26/2016 KAREEM PENN Ot V87.41 PERSONAL HISTORY OF ANTINEOPLASTIC CHEMO 10/26/2016 MUMTAZ MOYA [employer] M[employer]ER Ot 174.9 MALIGN NEOPL BREAST NOS 10/26/2016 MUMTAZ MOYA [employer] M[employer]ER Ot 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 10/26/2016 MUMTAZ MOYA [employer] M[employer]ER Ot 250.00 DIAB NESTOR WO COMPL, TYPE II OR UNSPEC TY 10/26/2016 MUMTAZ MOYA [employer] M[employer]ER Ot 305.1 TOBACCO USE DISORDER 10/26/2016 MUMTAZ MOYA [employer] M[employer]ER Ot V15.3 HX OF IRRADIATION 10/26/2016 MUMTAZ MOYA [employer] M[employer]ER Ot V45.71 ACQUIRED ABSENCE OF BREAST AND NIPPLE 10/26/2016 MUMTAZ MOYA [employer] M[employer]ER Ot V58.67 LONG-TERM (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 OF INSULIN 10/26/2016 MUMTAZ MOYA [employer] M[employer]ER Ot V58.69 OTH MED,LT,CURRENT USE 10/26/2016 MUMTAZ MOYA [employer] M[employer]ER Ot V86.0 ESTROGEN RECEPTOR POSITIVE STATUS [ER+] 10/26/2016 MUMTAZ MOYA [employer] M[employer]ER Ot V87.41 PERSONAL HISTORY OF ANTINEOPLASTIC CHEMO 10/26/2016 MUMTAZ MOYA [employer] M[employer]ER Ot 611.72 LUMP OR MASS IN BREAST 10/26/2016 MUMTAZ MOYA [employer] M[employer]ER Ot 793.11 SOLITARY PULMONARY NODULE 10/26/2016 MUMTAZ MOYA [employer] M[employer]ER Ot V10.3 HX OF BREAST MALIGNANCY 10/26/2016 MUMTAZ MOYA [employer] MENDER Ot V45.71 ACQUIRED ABSENCE OF BREAST AND NIPPLE 10/26/2016 MUMTAZ MOYA [employer] MENDER Ot 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.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 10/26/2016 MUMTAZ MOYA [employer] M[employer]ER Ot 174.9 MALIGN NEOPL BREAST NOS 10/26/2016 MUMTAZ MOYA [employer] M[employer]ER Ot 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 10/26/2016 MUMTAZ MOYA [employer] M[employer]ER Ot 250.00 DIAB NESTOR WO COMPL, TYPE II OR UNSPEC TY 10/26/2016 DC MOYARICHARD Coby [employer] Ot 305.1 TOBACCO USE DISORDER 10/26/2016 MUMTAZ MOYA [employer] M[employer]ER Ot 733.90 BONE CARTILAGE DIS NOS 10/26/2016 MUMTAZ MOYA [employer] MENDER Ot V15.3 HX OF IRRADIATION 10/26/2016 MUMTAZ MOYA [employer] MENDER Ot V45.71 ACQUIRED ABSENCE OF BREAST AND NIPPLE 10/26/2016 MUMTAZ MOYA [employer] MENDER Ot V58.67 LONG-TERM (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 OF INSULIN 10/26/2016 MUMTAZ MOYA [employer] M[employer]ER Ot V58.69 OTH MED,LT,CURRENT USE 10/26/2016 MUMTAZ MOYA [employer] M[employer]ER Ot V86.0 ESTROGEN RECEPTOR POSITIVE STATUS [ER+] 10/26/2016 MUMTAZ MOYA [employer] M[employer]ER Ot V87.41 PERSONAL HISTORY OF ANTINEOPLASTIC CHEMO 10/26/2016 MUMTAZ MOYA [employer] M[employer]ER Ot 174.9 MALIGN NEOPL BREAST NOS 10/26/2016 MUMTAZ MOYA [employer] MENDER Ot 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 10/26/2016 MUMTAZ MOYA Ot 733.90 BONE CARTILAGE DIS NOS 10/26/2016 MUMTAZ MOYA Ot 793.11 SOLITARY PULMONARY NODULE 10/26/2016 MUMTAZ MYOA Ot V84.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 10/26/2016 ENDER PAZ Ot E10.9 TYPE 1 DIABETES MELLITUS WITHOUT COMPLIC 10/26/2016 ENDER PAZ Ot E66.8 OTHER OBESITY 10/26/2016 ENDER PAZ Ot I10 ESSENTIAL (PRIMARY) HYPERTENSION 10/26/2016 ENDER PAZ Ot R60.9 EDEMA, UNSPECIFIED 10/26/2016 JASPER GREEN, MARK Willoughby Ot M06.9 RHEUMATOID ARTHRITIS, UNSPECIFIED 10/26/2016 MUMTAZ MOYA Ot C50.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 10/26/2016 MUMTAZ MOYA Ot C77.3 SEC AND UNSP MALIG NEOPLASM OF AXILLA AN 10/26/2016 MUMTAZ MOYA Ot M85.80 OTH DISRD OF BONE DENSITY AND STRUCTURE, 10/26/2016 MUMTAZ MOYA Ot Z15.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 10/26/2016 MUMTAZ MOYA Ot Z17.0 ESTROGEN RECEPTOR POSITIVE STATUS [ER+] 10/26/2016 MUMTAZ MOYAP Ot 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 10/26/2016 MUMTAZ MOYA [employer] M[employer] Ot Z90.11 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 10/26/2016 MUMTAZ MOYA [employer] M[employer]ER Ot Z92.3 PERSONAL HISTORY OF IRRADIATION 10/26/2016 MUMTAZ MOYA Ot 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 10/26/2016 MUMTAZ MOYA Ot 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 10/26/2016 MUMTAZ MOYA Ot C77.3 SEC AND UNSP MALIG NEOPLASM OF AXILLA AN 10/26/2016 MUMTAZ MOYA [employer] M[employer]ER Ot M85.80 OTH DISRD OF BONE DENSITY AND STRUCTURE, 10/26/2016 MUMTAZ MOYA [employer] M[employer]ER Ot Z17.0 ESTROGEN RECEPTOR POSITIVE STATUS [ER+] 10/26/2016 MUMTAZ MOYAP Ot Z79.811 [facility] (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 OF AROMATASE INH 10/26/2016 MUMTAZ MOYA [employer] M[employer]ER Ot Z90.11 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 10/26/2016 MUMTAZ MOYAP Ot Z92.3 PERSONAL HISTORY OF IRRADIATION 10/26/2016 MUMTAZ MOYAP Ot 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 10/26/2016 MUMTAZ MOYAP Ot Z85.3 PERSONAL HISTORY OF MALIGNANT NEOPLASM O 10/26/2016 MUMTAZ MOYAP Ot Z90.11 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 10/26/2016 KAREEM PENN Petr Ot 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 10/26/2016 KAREEM PENN Petr Ot C77.3 SEC AND UNSP MALIG NEOPLASM OF AXILLA AN 10/26/2016 KAREEM PENN Petr Ot M85.80 OTH DISRD OF BONE DENSITY AND STRUCTURE, 10/26/2016 KAREEM PENN Petr Ot R10.11 RIGHT UPPER QUADRANT PAIN 10/26/2016 KAREEM PENN Petr Ot Z17.0 ESTROGEN RECEPTOR POSITIVE STATUS [ER+] 10/26/2016 KAREEM PENN Petr Ot 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 10/26/2016 KAREEM PENN Petr Ot Z90.11 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 10/26/2016 KAREEM PENN Petr Ot Z92.3 PERSONAL HISTORY OF IRRADIATION 12/19/2016 KAREEM PENN Petr Ot 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 12/19/2016 KAREEM PENN Petr Ot C77.3 SEC AND UNSP MALIG NEOPLASM OF AXILLA AN 12/19/2016 KAREEM PENN Petr Ot M85.80 OTH DISRD OF BONE DENSITY AND STRUCTURE, 12/19/2016 KAREEM PENN Petr Ot R10.11 RIGHT UPPER QUADRANT PAIN 12/19/2016 KAREEM PENN Petr Ot Z17.0 ESTROGEN RECEPTOR POSITIVE STATUS [ER+] 12/19/2016 KAREEM PENN Ot Z79.811 [facility] (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 OF AROMATASE INH 12/19/2016 KAREEM PENN Ot Z90.11 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 12/19/2016 KAREEM PENN Ot Z92.3 PERSONAL HISTORY OF IRRADIATION 03/10/2017 KAREEM PENN Ot 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 03/10/2017 KAREEM PENN Ot C77.3 SEC AND UNSP MALIG NEOPLASM OF AXILLA AN 03/10/2017 KAREEM PENN Ot M85.80 OT DISRD OF BONE DENSITY AND STRUCTURE, 03/10/2017 KAREEM PENN Ot R10.11 RIGHT UPPER QUADRANT PAIN 03/10/2017 KAREEM PENN Ot Z17.0 ESTROGEN RECEPTOR POSITIVE STATUS [ER+] 03/10/2017 KAREEM PENN Ot 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 03/10/2017 KAREEM PENN Ot Z90.11 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 03/10/2017 KAREEM PENN Ot Z92.3 PERSONAL HISTORY OF IRRADIATION 03/11/2017 MUMTAZ MOYA Ot 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 03/11/2017 MUMTAZ MOYA [employer] Ot Z84.81 FAMILY HISTORY OF CARRIER OF GENETIC DIS 03/30/2017 Ot 611.72 LUMP OR MASS IN BREAST 03/30/2017 Ot 793.81 MAMMOGRAPHIC MICROCLACIFICATION 03/30/2017 Ot 174.9 MALIGN NEOPL BREAST NOS 03/30/2017 Ot V58.69 OT MED,LT, CURRENT USE 03/30/2017 Ot 174.4 MAL PAWEL BREAST UP-OUTER 03/30/2017 Ot 196.3 MAL PAWEL LYMPH -AXILLA/ARM 03/30/2017 Ot V58.11 ENCOUNTER FOR ANTINEOPLASTIC CHEMOTHERAP 03/30/2017 Ot V58.69 OT MED,LT, CURRENT USE 03/30/2017 Ot V86.0 ESTROGEN RECEPTOR POSITIVE STATUS [ER+] 03/30/2017 Ot 174.9 MALIGN NEOPL BREAST NOS 03/30/2017 Ot 276.69 OTHER FLUID OVERLOAD 03/30/2017 Ot 397.0 TRICUSPID VALVE DISEASE 03/30/2017 Ot 424.0 MITRAL VALVE DISORDER 03/30/2017 Ot V58.69 OTH MED,LT, CURRENT USE 03/30/2017 Ot V58.83 ENCOUNTER FOR THERAPEUTIC DRUG MONITORIN 03/30/2017 Ot V87.41 PERSONAL HISTORY OF ANTINEOPLASTIC CHEMO 03/30/2017 Ot 174.9 MALIGN NEOPL BREAST NOS 03/30/2017 Ot V58.69 OTH MED,LT, CURRENT USE 03/30/2017 Ot V87.41 PERSONAL HISTORY OF ANTINEOPLASTIC CHEMO 03/30/2017 Ot V58.69 OTH MED,LT, CURRENT USE 03/30/2017 Ot V58.83 ENCOUNTER FOR THERAPEUTIC DRUG MONITORIN 03/30/2017 Ot 428.0 CONGESTIVE HEART FAILURE NOS 03/30/2017 KAREEM PENN N Ot 996.74 OTH COMPL DUE TO OT VASCULAR DEVICE,IMP 03/30/2017 KEY JOSE [employer] Ot 729.5 PAIN IN LIMB 03/30/2017 DEVINEUGENIO FRIED [employer] Ot 729.5 PAIN IN LIMB 03/30/2017 EUGENIO BELTRAN [employer] Ot 729.81 SWELLING OF LIMB 03/30/2017 MUMTAZ MOYA [employer] Ot 174.4 MAL PAWEL BREAST UP-OUTER 03/30/2017 MUMTAZ MOYA [employer] M[employer]ER Ot 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 03/30/2017 MUMTAZ MOYA [employer] MENDER Ot 250.00 DIAB NESTOR WO COMPL, TYPE II OR UNSPEC TY 03/30/2017 MUMTAZ MOYAP Ot 782.3 EDEMA 03/30/2017 MUMTAZ MOYAP Ot V45.71 ACQUIRED ABSENCE OF BREAST AND NIPPLE 03/30/2017 MUMTAZ MOYA [employer] Ot V58.67 LONG-TERM (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 OF INSULIN 03/30/2017 MUMTAZ MOYAP Ot V58.69 OTH MED,LT,CURRENT USE 03/30/2017 MUMTAZ MOYA [employer] MENDER Ot V86.0 ESTROGEN RECEPTOR POSITIVE STATUS [ER+] 03/30/2017 MUMTAZ MOYAP Ot 397.0 TRICUSPID VALVE DISEASE 03/30/2017 MUMTAZ MOYAP Ot 424.0 MITRAL VALVE DISORDER 03/30/2017 MUMTAZ MOYA [employer] M[employer]ER Ot 782.3 EDEMA 03/30/2017 MUMTAZ MOYA Ot V58.69 OTH MED,LT,CURRENT USE 03/30/2017 MUMTAZ MOYA [employer] MENDER Ot V58.83 ENCOUNTER FOR THERAPEUTIC DRUG MONITORIN 03/30/2017 MUMTAZ MOYA [employer] MENDER Ot V87.41 PERSONAL HISTORY OF ANTINEOPLASTIC CHEMO 03/30/2017 MUMTAZ MOYA [employer] MENDER Ot 174.4 MAL PAWEL BREAST UP-OUTER 03/30/2017 MUMTAZ MOYA [employer] MENDER Ot 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 03/30/2017 MUMTAZ MOYA [employer] MENDER Ot 250.00 DIAB NESTOR WO COMPL, TYPE II OR UNSPEC TY 03/30/2017 MUMTAZ MOYA [employer] MENDER Ot 457.1 OTHER LYMPHEDEMA 03/30/2017 MUMTAZ MOYA [employer] MENDER Ot 782.3 EDEMA 03/30/2017 MUMTAZ MOYA [employer] MENDER Ot V45.71 ACQUIRED ABSENCE OF BREAST AND NIPPLE 03/30/2017 MUMTAZ MOYA [employer] MENDER Ot V58.67 LONG-TERM (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 OF INSULIN 03/30/2017 MUMTAZ MOYA [employer] MENDER Ot V58.69 OTH MED,LT,CURRENT USE 03/30/2017 MUMTAZ MOYA [employer] MENDER Ot V86.0 ESTROGEN RECEPTOR POSITIVE STATUS [ER+] 03/30/2017 MUMTAZ MOYA [employer] MENDER Ot 174.4 MAL PAWEL BREAST UP-OUTER 03/30/2017 MUMTAZ MOYA [employer] MENDER Ot 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 03/30/2017 MUMTAZ MOYA [employer] MENDER Ot 250.00 DIAB NESTOR WO COMPL, TYPE II OR UNSPEC TY 03/30/2017 MUMTAZ MOYA [employer] MENDER Ot V45.71 ACQUIRED ABSENCE OF BREAST AND NIPPLE 03/30/2017 MUMTAZ MOYA [employer] MENDER Ot V58.67 LONG-TERM (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 OF INSULIN 03/30/2017 MUMTAZ MOYA [employer] MENDER Ot V58.69 OTH MED,LT,CURRENT USE 03/30/2017 MUMTAZ MOYA [employer] MENDER Ot V86.0 ESTROGEN RECEPTOR POSITIVE STATUS [ER+] 03/30/2017 MOYA, HILAH S [employer] Ot 174.9 MALIGN NEOPL BREAST NOS 03/30/2017 DC MOYARICHARD S [employer] Ot 397.0 TRICUSPID VALVE DISEASE 03/30/2017 MUMTAZ MOYA S [employer] Ot 424.0 MITRAL VALVE DISORDER 03/30/2017 MUMTAZ MOYA S [employer] Ot 733.90 BONE CARTILAGE DIS NOS 03/30/2017 MUMTAZ MOYA Coby [employer] Ot V58.69 OTH MED,LT,CURRENT USE 03/30/2017 MUMTAZ MOYA [employer] MENDER Ot 174.9 MALIGN NEOPL BREAST NOS 03/30/2017 DC MOYARICHARD S [employer] MENDER Ot 250.00 DIAB NESTOR WO COMPL, TYPE II OR UNSPEC TY 03/30/2017 MUMTAZ MOYA S [employer] M[employer]ER Ot 397.0 TRICUSPID VALVE DISEASE 03/30/2017 MUMTAZ MOYA S [employer] Ot 424.0 MITRAL VALVE DISORDER 03/30/2017 MUMTAZ MOYA [employer] Ot 733.90 BONE CARTILAGE DIS NOS 03/30/2017 MUMTAZ MOYA [employer] Ot V45.71 ACQUIRED ABSENCE OF BREAST AND NIPPLE 03/30/2017 MUMTAZ MOYA [employer] Ot V58.67 LONG-TERM (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 OF INSULIN 03/30/2017 MUMTAZ MOYA [employer] Ot V58.69 OTH MED,LT,CURRENT USE 03/30/2017 MUMTAZ MOYA [employer] Ot V86.0 ESTROGEN RECEPTOR POSITIVE STATUS [ER+] 03/30/2017 MUMTAZ MOYA [employer] Ot 174.9 MALIGN NEOPL BREAST NOS 03/30/2017 MUMTAZ MOYA [employer] Ot 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 03/30/2017 MUMTAZ MOYA S [employer] Ot 244.9 HYPOTHYROIDISM NOS 03/30/2017 MUMTAZ MOYA S [employer] Ot 250.00 DIAB NESTOR WO COMPL, TYPE II OR UNSPEC TY 03/30/2017 MUMTAZ MOYA S [employer] Ot V45.71 ACQUIRED ABSENCE OF BREAST AND NIPPLE 03/30/2017 MUMTAZ MOYA S [employer] Ot V58.67 LONG-TERM (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 OF INSULIN 03/30/2017 MUMTAZ MOYA [employer] Ot V58.69 OTH MED,LT,CURRENT USE 03/30/2017 MUMTAZ MOYA [employer] Ot V86.0 ESTROGEN RECEPTOR POSITIVE STATUS [ER+] 03/30/2017 MUMTAZ MOYA [employer] Ot V87.41 PERSONAL HISTORY OF ANTINEOPLASTIC CHEMO 03/30/2017 MUMTAZ MOYA [employer] Ot 174.9 MALIGN NEOPL BREAST NOS 03/30/2017 MUMTAZ MOYA [employer] Ot 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 03/30/2017 MUMTAZ MOYAP Ot 244.9 HYPOTHYROIDISM NOS 03/30/2017 MUMTAZ MOYA [employer] Ot 250.00 DIAB NESTOR WO COMPL, TYPE II OR UNSPEC TY 03/30/2017 MUMTAZ MOYA [employer] Ot V45.71 ACQUIRED ABSENCE OF BREAST AND NIPPLE 03/30/2017 MUMTAZ MOYA [employer] Ot V58.67 LONG-TERM (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 OF INSULIN 03/30/2017 MUMTAZ MOYA [employer] Ot V58.69 OTH MED,LT,CURRENT USE 03/30/2017 MUMTAZ MOYA [employer] Ot V86.0 ESTROGEN RECEPTOR POSITIVE STATUS [ER+] 03/30/2017 MUMTAZ MOYA [employer] Ot V87.41 PERSONAL HISTORY OF ANTINEOPLASTIC CHEMO 03/30/2017 MUMTAZ MOYA [employer] Ot 174.9 MALIGN NEOPL BREAST NOS 03/30/2017 MUMTAZ MOYA [employer] Ot 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 03/30/2017 MUMTAZ MOYA [employer] Ot V15.3 HX OF IRRADIATION 03/30/2017 MUMTAZ MOYA [employer] Ot V45.71 ACQUIRED ABSENCE OF BREAST AND NIPPLE 03/30/2017 MUMTAZ MOYA [employer] Ot V58.69 OTH MED,LT,CURRENT USE 03/30/2017 MUMTAZ MOYA [employer] Ot V86.0 ESTROGEN RECEPTOR POSITIVE STATUS [ER+] 03/30/2017 MUMTAZ MOYA [employer] Ot V87.41 PERSONAL HISTORY OF ANTINEOPLASTIC CHEMO 03/30/2017 MUMTAZ MOYA [employer] Ot 174.9 MALIGN NEOPL BREAST NOS 03/30/2017 MUMTAZ MOYA [employer] Ot 397.0 TRICUSPID VALVE DISEASE 03/30/2017 MUMTAZ MOYA [employer] Ot 424.0 MITRAL VALVE DISORDER 03/30/2017 MUMTAZ MOYA [employer] Ot V58.69 OTH MED,LT,CURRENT USE 03/30/2017 GRIFFIN MUMTAZ Tenorio [employer] Ot V58.83 ENCOUNTER FOR THERAPEUTIC DRUG MONITORIN 03/30/2017 DC MOYARICHARD Coby SANCHEZ Ot V87.41 PERSONAL HISTORY OF ANTINEOPLASTIC CHEMO 03/30/2017 DC MOYARICHARD Coby [employer] Ot 174.9 MALIGN NEOPL BREAST NOS 03/30/2017 MUMTAZ MOYA [employer] Ot 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 03/30/2017 DC MOYARICHARD Tenorio [employer] Ot V15.3 HX OF IRRADIATION 03/30/2017 DC MOYARICHARD Coby LYNNP Ot V16.41 FAM HX-MAL NEOP-OVARY 03/30/2017 DC MOYARICHARD Coby LYNNP Ot V45.71 ACQUIRED ABSENCE OF BREAST AND NIPPLE 03/30/2017 DC MOYARICHARD Coby SANCHEZ Ot V58.69 OTH MED,LT,CURRENT USE 03/30/2017 DC MOYARICHARD Coby LYNNP Ot V86.0 ESTROGEN RECEPTOR POSITIVE STATUS [ER+] 03/30/2017 GRIFFIN MUMTAZ Coby [employer] Ot V87.41 PERSONAL HISTORY OF ANTINEOPLASTIC CHEMO 03/30/2017 DC MOYARICHARD Coby LYNNP Ot 174.9 MALIGN NEOPL BREAST NOS 03/30/2017 DC MOYARICHARD Coby LYNNP Ot 793.11 SOLITARY PULMONARY NODULE 03/30/2017 Ot 174.4 MAL PAWEL BREAST UP-OUTER 03/30/2017 Ot 196.3 MAL PAWEL LYMPH -AXILLA/ARM 03/30/2017 Ot V58.11 ENCOUNTER FOR ANTINEOPLASTIC CHEMOTHERAP 03/30/2017 Ot V58.69 OTH MED,LT, CURRENT USE 03/30/2017 Ot V86.0 ESTROGEN RECEPTOR POSITIVE STATUS [ER+] 03/30/2017 DC MOYARICHARD Coby [employer] Ot 174.9 MALIGN NEOPL BREAST NOS 03/30/2017 MUMTAZ MOYA [employer] Ot 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 03/30/2017 GRIFFIN MUMTAZ Coby [employer] Ot V15.3 HX OF IRRADIATION 03/30/2017 DC MOYARICHARD Coby [employer] Ot V16.41 FAM HX-MAL NEOP-OVARY 03/30/2017 MUMTAZ MOAY [employer] Ot V45.71 ACQUIRED ABSENCE OF BREAST AND NIPPLE 03/30/2017 DC MOYARICHARD Coby [employer] Ot V58.69 OTH MED,LT,CURRENT USE 03/30/2017 MUMTAZ MOYA [employer] Ot V86.0 ESTROGEN RECEPTOR POSITIVE STATUS [ER+] 03/30/2017 DC MOYARICHARD Tenorio [employer] Ot V87.41 PERSONAL HISTORY OF ANTINEOPLASTIC CHEMO 03/30/2017 MUMTAZ MOYA [employer] Ot 174.9 MALIGN NEOPL BREAST NOS 03/30/2017 MUMTAZ MOYA [employer] Ot 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 03/30/2017 MUMTAZ MOYA [employer] Ot V15.3 HX OF IRRADIATION 03/30/2017 MUMTAZ MOYA [employer] Ot V16.41 FAM HX-MAL NEOP-OVARY 03/30/2017 DC MOYARICHARD Coby [employer] Ot V45.71 ACQUIRED ABSENCE OF BREAST AND NIPPLE 03/30/2017 MUMTAZ MOYAP Ot V58.69 OTH MED,LT,CURRENT USE 03/30/2017 MUMTAZ MOYA [employer] Ot V86.0 ESTROGEN RECEPTOR POSITIVE STATUS [ER+] 03/30/2017 DC MOYARICHARD Coby [employer] Ot V87.41 PERSONAL HISTORY OF ANTINEOPLASTIC CHEMO 03/30/2017 MUMTAZ MOYA [employer] Ot 174.9 MALIGN NEOPL BREAST NOS 03/30/2017 MUMTAZ MOYA [employer] Ot 174.9 MALIGN NEOPL BREAST NOS 03/30/2017 MUMTAZ MOYA [employer] Ot 793.11 SOLITARY PULMONARY NODULE 03/30/2017 MADELINE IVAN MD Ot 174.9 MALIGN NEOPL BREAST NOS 03/30/2017 MADELINE IVAN MD Ot 244.9 HYPOTHYROIDISM NOS 03/30/2017 MADELINE IVAN MD Ot 397.0 TRICUSPID VALVE DISEASE 03/30/2017 MADELINE IVAN MD Ot 401.9 HYPERTENSION NOS 03/30/2017 MADELINE IVAN MD Ot 424.0 MITRAL VALVE DISORDER 03/30/2017 MADELINE IVAN MD Ot 782.3 EDEMA 03/30/2017 MUMTAZ MOYA [employer] Ot 174.9 MALIGN NEOPL BREAST NOS 03/30/2017 KAREEM PENN Ot 174.9 MALIGN NEOPL BREAST NOS 03/30/2017 KAREEM PENN Ot 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 03/30/2017 KAREEM PENN Ot V15.3 HX OF IRRADIATION 03/30/2017 KAREEM PENN Ot V45.71 ACQUIRED ABSENCE OF BREAST AND NIPPLE 03/30/2017 KAREEM PENN Ot V58.69 OTH MED,LT,CURRENT USE 03/30/2017 KAREEM PENN Ot V86.0 ESTROGEN RECEPTOR POSITIVE STATUS [ER+] 03/30/2017 KAREEM PENN Ot V87.41 PERSONAL HISTORY OF ANTINEOPLASTIC CHEMO 03/30/2017 MUMTAZ MOYA [employer] Ot 174.9 MALIGN NEOPL BREAST NOS 03/30/2017 MUMTAZ MOYA [employer] Ot 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 03/30/2017 MUMTAZ MOYA [employer] Ot 250.00 DIAB NESTOR WO COMPL, TYPE II OR UNSPEC TY 03/30/2017 MUMTAZ MOYA [employer] Ot 305.1 TOBACCO USE DISORDER 03/30/2017 MUMTAZ MOYA [employer] Ot V15.3 HX OF IRRADIATION 03/30/2017 MUMTAZ MOYA [employer] Ot V45.71 ACQUIRED ABSENCE OF BREAST AND NIPPLE 03/30/2017 MUMTAZ MOYA [employer] Ot V58.67 LONG-TERM (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 OF INSULIN 03/30/2017 MUMTAZ MOYAP Ot V58.69 OTH MED,LT,CURRENT USE 03/30/2017 MUMTAZ MOYA [employer] Ot V86.0 ESTROGEN RECEPTOR POSITIVE STATUS [ER+] 03/30/2017 MUMTAZ MOYA [employer] Ot V87.41 PERSONAL HISTORY OF ANTINEOPLASTIC CHEMO 03/30/2017 MUMTAZ MOYA [employer] Ot 611.72 LUMP OR MASS IN BREAST 03/30/2017 MUMTAZ MOYA [employer] Ot 793.11 SOLITARY PULMONARY NODULE 03/30/2017 MUMTAZ MOYA [employer] Ot V10.3 HX OF BREAST MALIGNANCY 03/30/2017 MUMTAZ MOYA [employer] Ot V45.71 ACQUIRED ABSENCE OF BREAST AND NIPPLE 03/30/2017 MUMTAZ MOYA [employer] M[employer] Ot 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.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 03/30/2017 MUMTAZ MOYA [employer] Ot 174.9 MALIGN NEOPL BREAST NOS 03/30/2017 MUMTAZ MOYA [employer] Ot 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 03/30/2017 MUMTAZ MOYA [employer] Ot 250.00 DIAB NESTOR WO COMPL, TYPE II OR UNSPEC TY 03/30/2017 MUMTAZ MOYA [employer] Ot 305.1 TOBACCO USE DISORDER 03/30/2017 MUMTAZ MOYA [employer] Ot 733.90 BONE CARTILAGE DIS NOS 03/30/2017 MUMTAZ MOYA [employer] M[employer] Ot V15.3 HX OF IRRADIATION 03/30/2017 MUMTAZ MOYA [employer] M[employer] Ot V45.71 ACQUIRED ABSENCE OF BREAST AND NIPPLE 03/30/2017 MUMTAZ MOYAP Ot V58.67 LONG-TERM (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 OF INSULIN 03/30/2017 MUMTAZ MOYAP Ot V58.69 OTH MED,LT,CURRENT USE 03/30/2017 MUMTAZ MOYA [employer] Ot V86.0 ESTROGEN RECEPTOR POSITIVE STATUS [ER+] 03/30/2017 MUMTAZ MOYA [employer] M[employer] Ot V87.41 PERSONAL HISTORY OF ANTINEOPLASTIC CHEMO 03/30/2017 MUMTAZ MOYA [employer] Ot 174.9 MALIGN NEOPL BREAST NOS 03/30/2017 MUMTAZ MOYAP Ot 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 03/30/2017 MUMTAZ MOYA [employer] M[employer] Ot 733.90 BONE CARTILAGE DIS NOS 03/30/2017 MUMTAZ MOYAP Ot 793.11 SOLITARY PULMONARY NODULE 03/30/2017 MUMTAZ MOYA [employer] Ot V84.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 03/30/2017 ENDER PAZ Ot E10.9 TYPE 1 DIABETES MELLITUS WITHOUT COMPLIC 03/30/2017 ENDER PAZ Ot E66.8 OTHER OBESITY 03/30/2017 ENDER PAZ Ot I10 ESSENTIAL (PRIMARY) HYPERTENSION 03/30/2017 ENDER PAZ Ot R60.9 EDEMA, UNSPECIFIED 03/30/2017 JASPER GREEN, MARK [place]ough[place] Ot M06.9 RHEUMATOID ARTHRITIS, UNSPECIFIED 03/30/2017 MUMTAZ MOYA [employer] Ot C50.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 03/30/2017 MOYAMUMTAZP Ot C77.3 SEC AND UNSP MALIG NEOPLASM OF AXILLA AN 03/30/2017 MOYAMUMTAZ TenorioP Ot M85.80 OTH DISRD OF BONE DENSITY AND STRUCTURE, 03/30/2017 GRIFFINMUMTAZP Ot Z15.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 03/30/2017 GRIFFINMUMTAZ [employer] Ot Z17.0 ESTROGEN RECEPTOR POSITIVE STATUS [ER+] 03/30/2017 GRIFFIN MUMTAZ Tenorio [employer] Ot Z79.811 [facility]CI (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 OF AROMATASE INH 03/30/2017 GRIFFIN MUMTAZ Tenorio [employer] Ot Z90.11 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 03/30/2017 GRIFFIN MUMTAZ Tenorio [employer] Ot Z92.3 PERSONAL HISTORY OF IRRADIATION 03/30/2017 DC MOYARICHARD Tenorio [employer] Ot 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 03/30/2017 GRIFFIN MUMTAZ Tenorio [employer] Ot 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 03/30/2017 GRIFFIN MUMTAZ LYNNP Ot C77.3 SEC AND UNSP MALIG NEOPLASM OF AXILLA AN 03/30/2017 GRIFFIN MUMTAZ LYNNP Ot M85.80 OTH DISRD OF BONE DENSITY AND STRUCTURE, 03/30/2017 GRIFFIN MUMTAZ Tenorio [employer] Ot Z17.0 ESTROGEN RECEPTOR POSITIVE STATUS [ER+] 03/30/2017 GRIFFIN MUMTAZ Tenorio [employer] Ot Z79.811 [facility] (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 OF AROMATASE INH 03/30/2017 GRIFFIN MUMTAZ Tenorio [employer] Ot Z90.11 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 03/30/2017 MUMTAZ MOYA Coby [employer] Ot Z92.3 PERSONAL HISTORY OF IRRADIATION 03/30/2017 GRIFFIN MUMTAZ Tenorio [employer] Ot 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 03/30/2017 MUMTAZ MOYA Coby [employer] Ot Z85.3 PERSONAL HISTORY OF MALIGNANT NEOPLASM O 03/30/2017 MUMTAZ MOYA Coby [employer] Ot Z90.11 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 03/30/2017 MUMTAZ MOYA [employer] M[employer] Ot 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 03/30/2017 MUMTAZ MOYA [employer] M[employer] Ot Z84.81 FAMILY HISTORY OF CARRIER OF GENETIC DIS 03/31/2017 KAREEM PENN Ot 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 03/31/2017 KAREEM PENN Ot C77.3 SEC AND UNSP MALIG NEOPLASM OF AXILLA AN 03/31/2017 KAREEM PENN N Ot M85.80 OTH DISRD OF BONE DENSITY AND STRUCTURE, 03/31/2017 KAREEM PENN Ot R10.11 RIGHT UPPER QUADRANT PAIN 03/31/2017 KAREEM PENN Petr Ot Z17.0 ESTROGEN RECEPTOR POSITIVE STATUS [ER+] 03/31/2017 KAREEM PENN N Ot Z79.811 [facility]CI (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 OF AROMATASE INH 03/31/2017 KAREEM PENN N Ot Z90.11 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 03/31/2017 KAREEM PENN N Ot Z92.3 PERSONAL HISTORY OF IRRADIATION 05/13/2017 KAREEM PENN Ot 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 05/13/2017 KAREEM PENN Ot C77.3 SEC AND UNSP MALIG NEOPLASM OF AXILLA AN 05/13/2017 KAREEM PENN N Ot M85.80 OTH DISRD OF BONE DENSITY AND STRUCTURE, 05/13/2017 KAREEM PENN Ot R10.11 RIGHT UPPER QUADRANT PAIN 05/13/2017 KAREEM PENN Petr Ot Z17.0 ESTROGEN RECEPTOR POSITIVE STATUS [ER+] 05/13/2017 KAREEM PENN N Ot Z79.811 [facility] (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 OF AROMATASE INH 05/13/2017 KAREEM PENN N Ot Z90.11 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 05/13/2017 KAREEM PENN N Ot Z92.3 PERSONAL HISTORY OF IRRADIATION 06/16/2017 KAREEM PENN Ot 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 06/16/2017 KAREEM PENN Ot C77.3 SEC AND UNSP MALIG NEOPLASM OF AXILLA AN 06/16/2017 KAREEM PENN Ot M85.80 OTH DISRD OF BONE DENSITY AND STRUCTURE, 06/16/2017 KAREEM PENN Ot R10.11 RIGHT UPPER QUADRANT PAIN 06/16/2017 KAREEM PENN Ot Z17.0 ESTROGEN RECEPTOR POSITIVE STATUS [ER+] 06/16/2017 KAREEM PENN Ot 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 06/16/2017 KAREEM PENN Ot Z90.11 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 06/16/2017 KAREEM PENN Ot Z92.3 PERSONAL HISTORY OF IRRADIATION 06/16/2017 Ot 611.72 LUMP OR MASS IN BREAST 06/16/2017 Ot 793.81 MAMMOGRAPHIC MICROCLACIFICATION 06/16/2017 Ot 174.9 MALIGN NEOPL BREAST NOS 06/16/2017 Ot V58.69 OTH MED,LT, CURRENT USE 06/16/2017 Ot 174.4 MAL PAWEL BREAST UP-OUTER 06/16/2017 Ot 196.3 MAL PAWEL LYMPH -AXILLA/ARM 06/16/2017 Ot V58.11 ENCOUNTER FOR ANTINEOPLASTIC CHEMOTHERAP 06/16/2017 Ot V58.69 OTH MED,LT, CURRENT USE 06/16/2017 Ot V86.0 ESTROGEN RECEPTOR POSITIVE STATUS [ER+] 06/16/2017 Ot 174.9 MALIGN NEOPL BREAST NOS 06/16/2017 Ot 276.69 OTHER FLUID OVERLOAD 06/16/2017 Ot 397.0 TRICUSPID VALVE DISEASE 06/16/2017 Ot 424.0 MITRAL VALVE DISORDER 06/16/2017 Ot V58.69 OTH MED,LT, CURRENT USE 06/16/2017 Ot V58.83 ENCOUNTER FOR THERAPEUTIC DRUG MONITORIN 06/16/2017 Ot V87.41 PERSONAL HISTORY OF ANTINEOPLASTIC CHEMO 06/16/2017 Ot 174.9 MALIGN NEOPL BREAST NOS 06/16/2017 Ot V58.69 OTH MED,LT, CURRENT USE 06/16/2017 Ot V87.41 PERSONAL HISTORY OF ANTINEOPLASTIC CHEMO 06/16/2017 Ot V58.69 OTH MED,LT, CURRENT USE 06/16/2017 Ot V58.83 ENCOUNTER FOR THERAPEUTIC DRUG MONITORIN 06/16/2017 Ot 428.0 CONGESTIVE HEART FAILURE NOS 06/16/2017 KAREEM PENN Ot 996.74 OTH COMPL DUE TO OT VASCULAR DEVICE,IMP 06/16/2017 JOSEKEY Allison [employer] Ot 729.5 PAIN IN LIMB 06/16/2017 EUGENOI BELTRAN [employer] Ot 729.5 PAIN IN LIMB 06/16/2017 EUGENIO BELTRAN [employer] Ot 729.81 SWELLING OF LIMB 06/16/2017 MUMTAZ MOYA [employer] Ot 174.4 MAL PAWEL BREAST UP-OUTER 06/16/2017 MUMTAZ MOYA [employer] Ot 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 06/16/2017 MUMTAZ MOYA [employer] M[employer]ER Ot 250.00 DIAB NESTOR WO COMPL, TYPE II OR UNSPEC TY 06/16/2017 MUMTAZ MOYA [employer] M[employer]ER Ot 782.3 EDEMA 06/16/2017 MUMTAZ MOYAP Ot V45.71 ACQUIRED ABSENCE OF BREAST AND NIPPLE 06/16/2017 MUMTAZ MOYA [employer] M[employer] Ot V58.67 LONG-TERM (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 OF INSULIN 06/16/2017 MUMTAZ MOYA [employer] M[employer] Ot V58.69 OTH MED,LT,CURRENT USE 06/16/2017 MUMTAZ MOYA [employer] M[employer] Ot V86.0 ESTROGEN RECEPTOR POSITIVE STATUS [ER+] 06/16/2017 MUMTAZ MOYA [employer] M[employer] Ot 397.0 TRICUSPID VALVE DISEASE 06/16/2017 MUMTAZ MOYA [employer] M[employer]ER Ot 424.0 MITRAL VALVE DISORDER 06/16/2017 MUMTAZ MOYAP Ot 782.3 EDEMA 06/16/2017 MUMTAZ MOYAP Ot V58.69 OTH MED,LT,CURRENT USE 06/16/2017 MUMTAZ MOYA [employer] M[employer] Ot V58.83 ENCOUNTER FOR THERAPEUTIC DRUG MONITORIN 06/16/2017 MUMTAZ MOYA [employer] M[employer] Ot V87.41 PERSONAL HISTORY OF ANTINEOPLASTIC CHEMO 06/16/2017 MUMTAZ MOYA [employer] M[employer] Ot 174.4 MAL PAWEL BREAST UP-OUTER 06/16/2017 MUMTAZ MOYA [employer] M[employer] Ot 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 06/16/2017 MUMTAZ MOYA [employer] M[employer]ER Ot 250.00 DIAB NESTOR WO COMPL, TYPE II OR UNSPEC TY 06/16/2017 MUMTAZ MOYA [employer] M[employer] Ot 457.1 OTHER LYMPHEDEMA 06/16/2017 MUMTAZ MOYA [employer] M[employer] Ot 782.3 EDEMA 06/16/2017 MUMTAZ MOYA [employer] M[employer] Ot V45.71 ACQUIRED ABSENCE OF BREAST AND NIPPLE 06/16/2017 MUMTAZ MOYA [employer] M[employer]ER Ot V58.67 LONG-TERM (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 OF INSULIN 06/16/2017 MUMTAZ MOYA [employer] M[employer]ER Ot V58.69 OTH MED,LT,CURRENT USE 06/16/2017 MUMTAZ MOYA [employer] M[employer]ER Ot V86.0 ESTROGEN RECEPTOR POSITIVE STATUS [ER+] 06/16/2017 MUMTAZ MOYA [employer] M[employer] Ot 174.4 MAL PAWEL BREAST UP-OUTER 06/16/2017 MUMTAZ MOYA [employer] M[employer]ER Ot 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 06/16/2017 MUMTAZ MOYA [employer] MENDER Ot 250.00 DIAB NESTOR WO COMPL, TYPE II OR UNSPEC TY 06/16/2017 MUMTAZ MOYA [employer] MENDER Ot V45.71 ACQUIRED ABSENCE OF BREAST AND NIPPLE 06/16/2017 MUMTAZ MOYA [employer] MENDER Ot V58.67 LONG-TERM (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 OF INSULIN 06/16/2017 MUMTAZ MOYA [employer] MENDER Ot V58.69 OTH MED,LT,CURRENT USE 06/16/2017 MUMTAZ MOYA [employer] MENDER Ot V86.0 ESTROGEN RECEPTOR POSITIVE STATUS [ER+] 06/16/2017 MUMTAZ MOYA [employer] M[employer] Ot 174.9 MALIGN NEOPL BREAST NOS 06/16/2017 MUMTAZ MOYA [employer] MENDER Ot 397.0 TRICUSPID VALVE DISEASE 06/16/2017 MUMTAZ MOYA [employer] MENDER Ot 424.0 MITRAL VALVE DISORDER 06/16/2017 MUMTAZ MOYA [employer] M[employer]ER Ot 733.90 BONE CARTILAGE DIS NOS 06/16/2017 MUMTAZ MOYA [employer] M[employer]ER Ot V58.69 OTH MED,LT,CURRENT USE 06/16/2017 MUMTAZ MOYA [employer] M[employer] Ot 174.9 MALIGN NEOPL BREAST NOS 06/16/2017 MUMTAZ MOYA S [employer] MENDER Ot 250.00 DIAB NESTOR WO COMPL, TYPE II OR UNSPEC TY 06/16/2017 MUMTAZ MOYA S [employer] M[employer]ER Ot 397.0 TRICUSPID VALVE DISEASE 06/16/2017 MUMTAZ MOYA S [employer] MENDER Ot 424.0 MITRAL VALVE DISORDER 06/16/2017 MUMTAZ MOYA Coby [employer] M[employer]ER Ot 733.90 BONE CARTILAGE DIS NOS 06/16/2017 DC MOYARICHARD Tenorio [employer] Ot V45.71 ACQUIRED ABSENCE OF BREAST AND NIPPLE 06/16/2017 MUMTAZ MOYA Coby [employer] M[employer] Ot V58.67 LONG-TERM (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 OF INSULIN 06/16/2017 MUMTAZ MOYA Coby [employer] M[employer] Ot V58.69 OTH MED,LT,CURRENT USE 06/16/2017 MUMTAZ MOYA Coby [employer] M[employer] Ot V86.0 ESTROGEN RECEPTOR POSITIVE STATUS [ER+] 06/16/2017 MUMTAZ MOYA S [employer] M[employer]ER Ot 174.9 MALIGN NEOPL BREAST NOS 06/16/2017 DC MOYARICHARD S [employer]ER Ot 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 06/16/2017 GRIFFIN MUMTAZ S [employer] M[employer]ER Ot 244.9 HYPOTHYROIDISM NOS 06/16/2017 GRIFFIN MUMTAZ S [employer] Ot 250.00 DIAB NESTOR WO COMPL, TYPE II OR UNSPEC TY 06/16/2017 MUMTAZ MOYA S [employer] M[employer]ER Ot V45.71 ACQUIRED ABSENCE OF BREAST AND NIPPLE 06/16/2017 MUMTAZ MOYA Coby [employer] M[employer] Ot V58.67 LONG-TERM (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 OF INSULIN 06/16/2017 MUMTAZ MOYA Coby [employer] M[employer] Ot V58.69 OTH MED,LT,CURRENT USE 06/16/2017 GRIFFIN MUMTAZ Tenorio [employer] Ot V86.0 ESTROGEN RECEPTOR POSITIVE STATUS [ER+] 06/16/2017 MUMTAZ MOYA [employer] M[employer]ER Ot V87.41 PERSONAL HISTORY OF ANTINEOPLASTIC CHEMO 06/16/2017 MUMTAZ MOYA [employer] M[employer] Ot 174.9 MALIGN NEOPL BREAST NOS 06/16/2017 MUMTAZ MOYA S [employer] M[employer]ER Ot 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 06/16/2017 MUMTAZ MOYA S [employer] M[employer]ER Ot 244.9 HYPOTHYROIDISM NOS 06/16/2017 DC MOYARICHARD S [employer] Ot 250.00 DIAB NESTOR WO COMPL, TYPE II OR UNSPEC TY 06/16/2017 GRIFFIN DCRICHARD S [employer] M[employer]ER Ot V45.71 ACQUIRED ABSENCE OF BREAST AND NIPPLE 06/16/2017 MUMTAZ MOYA S [employer] M[employer]ER Ot V58.67 LONG-TERM (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 OF INSULIN 06/16/2017 MUMTAZ MOYAP Ot V58.69 OTH MED,LT,CURRENT USE 06/16/2017 MUMTAZ MOYA [employer] M[employer] Ot V86.0 ESTROGEN RECEPTOR POSITIVE STATUS [ER+] 06/16/2017 MUMTAZ MOYA [employer] M[employer]ER Ot V87.41 PERSONAL HISTORY OF ANTINEOPLASTIC CHEMO 06/16/2017 MUMTAZ MOYA [employer] M[employer] Ot 174.9 MALIGN NEOPL BREAST NOS 06/16/2017 MUMTAZ MOYA [employer] M[employer] Ot 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 06/16/2017 MUMTAZ MOYA [employer] MENDER Ot V15.3 HX OF IRRADIATION 06/16/2017 MUMTAZ MOYA [employer] MENDER Ot V45.71 ACQUIRED ABSENCE OF BREAST AND NIPPLE 06/16/2017 MUMTAZ MOYAP Ot V58.69 OTH MED,LT,CURRENT USE 06/16/2017 MUMTAZ MOYA [employer] M[employer]ER Ot V86.0 ESTROGEN RECEPTOR POSITIVE STATUS [ER+] 06/16/2017 MUMTAZ MOYA [employer] MENDER Ot V87.41 PERSONAL HISTORY OF ANTINEOPLASTIC CHEMO 06/16/2017 MUMTAZ MOYA [employer] M[employer]ER Ot 174.9 MALIGN NEOPL BREAST NOS 06/16/2017 MUMTAZ MOYA [employer] MENDER Ot 397.0 TRICUSPID VALVE DISEASE 06/16/2017 MUMTAZ MOYA [employer] MENDER Ot 424.0 MITRAL VALVE DISORDER 06/16/2017 MUMTAZ MOYA Ot V58.69 OTH MED,LT,CURRENT USE 06/16/2017 MUMTAZ MOYA [employer] M[employer] Ot V58.83 ENCOUNTER FOR THERAPEUTIC DRUG MONITORIN 06/16/2017 MUMTAZ MOYA [employer] M[employer]ER Ot V87.41 PERSONAL HISTORY OF ANTINEOPLASTIC CHEMO 06/16/2017 MUMTAZ MOYA [employer] M[employer] Ot 174.9 MALIGN NEOPL BREAST NOS 06/16/2017 MUMTAZ MOYA [employer] M[employer]ER Ot 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 06/16/2017 MUMTAZ MOYA [employer] MENDER Ot V15.3 HX OF IRRADIATION 06/16/2017 MUMTAZ MOYA [employer] MENDER Ot V16.41 FAM HX-MAL NEOP-OVARY 06/16/2017 MUMTAZ MOYA [employer] MENDER Ot V45.71 ACQUIRED ABSENCE OF BREAST AND NIPPLE 06/16/2017 MUMTAZ MOYAP Ot V58.69 OTH MED,LT,CURRENT USE 06/16/2017 MUMTAZ MOYA [employer] M[employer]ER Ot V86.0 ESTROGEN RECEPTOR POSITIVE STATUS [ER+] 06/16/2017 MUMTAZ MOYA [employer] MENDER Ot V87.41 PERSONAL HISTORY OF ANTINEOPLASTIC CHEMO 06/16/2017 MUMTAZ MOYA [employer] M[employer] Ot 174.9 MALIGN NEOPL BREAST NOS 06/16/2017 MUMTAZ MOYA [employer] M[employer] Ot 793.11 SOLITARY PULMONARY NODULE 06/16/2017 Ot 174.4 MAL PAWEL BREAST UP-OUTER 06/16/2017 Ot 196.3 MAL PAWEL LYMPH -AXILLA/ARM 06/16/2017 Ot V58.11 ENCOUNTER FOR ANTINEOPLASTIC CHEMOTHERAP 06/16/2017 Ot V58.69 OTH MED,LT, CURRENT USE 06/16/2017 Ot V86.0 ESTROGEN RECEPTOR POSITIVE STATUS [ER+] 06/16/2017 MUMTAZ MOYA [employer] Ot 174.9 MALIGN NEOPL BREAST NOS 06/16/2017 MUMTAZ MOYA [employer] M[employer]ER Ot 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 06/16/2017 MUMTAZ MOYA [employer] MENDER Ot V15.3 HX OF IRRADIATION 06/16/2017 MUMTAZ MOYA [employer] MENDER Ot V16.41 FAM HX-MAL NEOP-OVARY 06/16/2017 MUMTAZ MOYA [employer] MENDER Ot V45.71 ACQUIRED ABSENCE OF BREAST AND NIPPLE 06/16/2017 MUMTAZ MOYA [employer] MENDER Ot V58.69 OTH MED,LT,CURRENT USE 06/16/2017 MUMTAZ MOYA [employer] MENDER Ot V86.0 ESTROGEN RECEPTOR POSITIVE STATUS [ER+] 06/16/2017 MUMTAZ MOYA [employer] MENDER Ot V87.41 PERSONAL HISTORY OF ANTINEOPLASTIC CHEMO 06/16/2017 MUMTAZ MOYA [employer] M[employer]ER Ot 174.9 MALIGN NEOPL BREAST NOS 06/16/2017 MUMTAZ MOYA [employer] M[employer]ER Ot 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 06/16/2017 MUMTAZ MOYA [employer] MENDER Ot V15.3 HX OF IRRADIATION 06/16/2017 MUMTAZ MOYA [employer] MENDER Ot V16.41 FAM HX-MAL NEOP-OVARY 06/16/2017 MUMTAZ MOYA [employer] MENDER Ot V45.71 ACQUIRED ABSENCE OF BREAST AND NIPPLE 06/16/2017 MUMTAZ MOYA [employer] MENDER Ot V58.69 OTH MED,LT,CURRENT USE 06/16/2017 MUMTAZ MOYA [employer] MENDER Ot V86.0 ESTROGEN RECEPTOR POSITIVE STATUS [ER+] 06/16/2017 DC MOYARICHARD Coby [employer] Ot V87.41 PERSONAL HISTORY OF ANTINEOPLASTIC CHEMO 06/16/2017 MUMTAZ MOYA [employer] M[employer]ER Ot 174.9 MALIGN NEOPL BREAST NOS 06/16/2017 MUMTAZ MOYA [employer] M[employer]ER Ot 174.9 MALIGN NEOPL BREAST NOS 06/16/2017 MUMTAZ MOYA [employer] MENDER Ot 793.11 SOLITARY PULMONARY NODULE 06/16/2017 ADRI GREEN, BASHAR J Ot 174.9 MALIGN NEOPL BREAST NOS 06/16/2017 ADRI GREEN, BASHAR J Ot 244.9 HYPOTHYROIDISM NOS 06/16/2017 ADRI GREEN, BASHAR J Ot 397.0 TRICUSPID VALVE DISEASE 06/16/2017 ADRI GREEN, BASHAR J Ot 401.9 HYPERTENSION NOS 06/16/2017 ADRI GREEN, BASHAR J Ot 424.0 MITRAL VALVE DISORDER 06/16/2017 ADRI GREEN, BASHAR J Ot 782.3 EDEMA 06/16/2017 MUMTAZ MOYA [employer] Ot 174.9 MALIGN NEOPL BREAST NOS 06/16/2017 KAREEM PENN Ot 174.9 MALIGN NEOPL BREAST NOS 06/16/2017 KAREEM PENN Ot 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 06/16/2017 KAREEM PENN Ot V15.3 HX OF IRRADIATION 06/16/2017 KAREEM PENN Ot V45.71 ACQUIRED ABSENCE OF BREAST AND NIPPLE 06/16/2017 KAREEM PENN Ot V58.69 OTH MED,LT,CURRENT USE 06/16/2017 KAREEM PENN Ot V86.0 ESTROGEN RECEPTOR POSITIVE STATUS [ER+] 06/16/2017 KAREEM PENN Ot V87.41 PERSONAL HISTORY OF ANTINEOPLASTIC CHEMO 06/16/2017 MUMTAZ MOYA [employer] Ot 174.9 MALIGN NEOPL BREAST NOS 06/16/2017 MUMTAZ MOYA [employer] M[employer] Ot 196.3 MAL APWEL LYMPH-AXILLA/ARM 06/16/2017 MUMTAZ MOYA [employer] M[employer] Ot 250.00 DIAB NESTOR WO COMPL, TYPE II OR UNSPEC TY 06/16/2017 MUMTAZ MOYA [employer] M[employer] Ot 305.1 TOBACCO USE DISORDER 06/16/2017 MUMTAZ MOYA [employer] Ot V15.3 HX OF IRRADIATION 06/16/2017 MUMTAZ MOYA [employer] Ot V45.71 ACQUIRED ABSENCE OF BREAST AND NIPPLE 06/16/2017 MUMTAZ MOYA [employer] Ot V58.67 LONG-TERM (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 OF INSULIN 06/16/2017 MUMTAZ MOYA [employer] Ot V58.69 OTH MED,LT,CURRENT USE 06/16/2017 MUMTAZ MOYA [employer] Ot V86.0 ESTROGEN RECEPTOR POSITIVE STATUS [ER+] 06/16/2017 MUMTAZ MOYA [employer] Ot V87.41 PERSONAL HISTORY OF ANTINEOPLASTIC CHEMO 06/16/2017 MUMTAZ MOYA [employer] Ot 611.72 LUMP OR MASS IN BREAST 06/16/2017 MUMTAZ MOYA [employer] Ot 793.11 SOLITARY PULMONARY NODULE 06/16/2017 MUMTAZ MOYA [employer] Ot V10.3 HX OF BREAST MALIGNANCY 06/16/2017 MUMTAZ MOYA [employer] Ot V45.71 ACQUIRED ABSENCE OF BREAST AND NIPPLE 06/16/2017 MUMTAZ MOYA [employer] Ot V84.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 06/16/2017 MUMTAZ MOYA [employer] Ot 174.9 MALIGN NEOPL BREAST NOS 06/16/2017 MUMTAZ MOYA [employer] Ot 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 06/16/2017 MUMTAZ MOYA [employer] Ot 250.00 DIAB NESTOR WO COMPL, TYPE II OR UNSPEC TY 06/16/2017 MUMTAZ MOYA [employer] Ot 305.1 TOBACCO USE DISORDER 06/16/2017 MUMTAZ MOYA [employer] Ot 733.90 BONE CARTILAGE DIS NOS 06/16/2017 MUMTAZ MOYA [employer] Ot V15.3 HX OF IRRADIATION 06/16/2017 MUMTAZ MOYA [employer] Ot V45.71 ACQUIRED ABSENCE OF BREAST AND NIPPLE 06/16/2017 MUMTAZ MOYA [employer] Ot V58.67 LONG-TERM (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 OF INSULIN 06/16/2017 MUMTAZ MOYAP Ot V58.69 OTH MED,LT,CURRENT USE 06/16/2017 MUMTAZ MOYA [employer] Ot V86.0 ESTROGEN RECEPTOR POSITIVE STATUS [ER+] 06/16/2017 MUMTAZ MOYA [employer] Ot V87.41 PERSONAL HISTORY OF ANTINEOPLASTIC CHEMO 06/16/2017 MUMTAZ MOYA [employer] Ot 174.9 MALIGN NEOPL BREAST NOS 06/16/2017 MUMTAZ MOYAP Ot 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 06/16/2017 MUMTAZ MOYAP Ot 733.90 BONE CARTILAGE DIS NOS 06/16/2017 MUMTAZ MOYAP Ot 793.11 SOLITARY PULMONARY NODULE 06/16/2017 MUMTAZ MOYA Ot V84.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 06/16/2017 ENDER PAZ Ot E10.9 TYPE 1 DIABETES MELLITUS WITHOUT COMPLIC 06/16/2017 ENDER PAZ Ot E66.8 OTHER OBESITY 06/16/2017 ENDER PAZ Ot I10 ESSENTIAL (PRIMARY) HYPERTENSION 06/16/2017 ENDER PAZ Ot R60.9 EDEMA, UNSPECIFIED 06/16/2017 JASPER GREEN, MARK [place] Ot M06.9 RHEUMATOID ARTHRITIS, UNSPECIFIED 06/16/2017 MUMTAZ MOYAP Ot C50.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 06/16/2017 MUMTAZ MOYA Ot C77.3 SEC AND UNSP MALIG NEOPLASM OF AXILLA AN 06/16/2017 MUMTAZ MOYAP Ot M85.80 OTH DISRD OF BONE DENSITY AND STRUCTURE, 06/16/2017 MUMTAZ MOYAP Ot Z15.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 06/16/2017 MUMTAZ MOYAP Ot Z17.0 ESTROGEN RECEPTOR POSITIVE STATUS [ER+] 06/16/2017 MUMTAZ MOYAP Ot 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 06/16/2017 MUMTAZ MOYA [employer] Ot Z90.11 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 06/16/2017 MUMTAZ MOYA [employer] Ot Z92.3 PERSONAL HISTORY OF IRRADIATION 06/16/2017 MOYAMUMTAZ Tenorio [employer] Ot 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 06/16/2017 MOYAMUMTAZ Tenorio [employer] Ot 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 06/16/2017 MOYAMUMTAZ TenorioP Ot C77.3 SEC AND UNSP MALIG NEOPLASM OF AXILLA AN 06/16/2017 MOYAMUMTAZ Tenorio [employer] Ot M85.80 OTH DISRD OF BONE DENSITY AND STRUCTURE, 06/16/2017 MOYAMUMTAZ Tenorio [employer] Ot Z17.0 ESTROGEN RECEPTOR POSITIVE STATUS [ER+] 06/16/2017 GRIFFIN MUMTAZ Tenorio [employer] Ot Z79.811 FCI (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 OF AROMATASE INH 06/16/2017 GRIFFINMUMTAZ [employer] Ot Z90.11 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 06/16/2017 MOYAMUMTAZ Tenorio [employer] Ot Z92.3 PERSONAL HISTORY OF IRRADIATION 06/16/2017 MOYAMUMTAZ Tenorio [employer] Ot 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 06/16/2017 MOYAMUMTAZ Tenorio [employer] Ot Z85.3 PERSONAL HISTORY OF MALIGNANT NEOPLASM O 06/16/2017 MOYAMUMTAZ Tenorio [employer] Ot Z90.11 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 06/16/2017 MOYAMUMTAZ Tenorio [employer] Ot 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 06/16/2017 MOYAMUMTAZ Tenorio [employer] Ot Z84.81 FAMILY HISTORY OF CARRIER OF GENETIC DIS 06/16/2017 KAREEM PENN Ot 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 06/16/2017 KAREEM PENN Ot C77.3 SEC AND UNSP MALIG NEOPLASM OF AXILLA AN 06/16/2017 KAREEM PENN Ot M85.80 OTH DISRD OF BONE DENSITY AND STRUCTURE, 06/16/2017 KAREEM PENN Ot R10.11 RIGHT UPPER QUADRANT PAIN 06/16/2017 KAREEM PENN Ot Z17.0 ESTROGEN RECEPTOR POSITIVE STATUS [ER+] 06/16/2017 KAREEM PENN Ot 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 06/16/2017 KAREEM PENN Ot Z90.11 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 06/16/2017 KAREEM PENN Ot Z92.3 PERSONAL HISTORY OF IRRADIATION 06/28/2017 KAREEM PENN Ot 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 06/28/2017 KAREEM PENN Ot C77.3 SEC AND UNSP MALIG NEOPLASM OF AXILLA AN 06/28/2017 KAREEM PENN Ot M85.80 OTH DISRD OF BONE DENSITY AND STRUCTURE, 06/28/2017 KAREEM PENN Ot R10.11 RIGHT UPPER QUADRANT PAIN 06/28/2017 KAREEM PENN Ot Z17.0 ESTROGEN RECEPTOR POSITIVE STATUS [ER+] 06/28/2017 KAREEM PENN Ot 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 06/28/2017 KAREEM PENN Ot Z90.11 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 06/28/2017 KAREEM PENN Ot Z92.3 PERSONAL HISTORY OF IRRADIATION 06/30/2017 KAREEM PENN Ot 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 06/30/2017 KAREEM PENN Ot C77.3 SEC AND UNSP MALIG NEOPLASM OF AXILLA AN 06/30/2017 KAREEM PENN Ot M85.80 OTH DISRD OF BONE DENSITY AND STRUCTURE, 06/30/2017 KAREEM PENN Ot R10.11 RIGHT UPPER QUADRANT PAIN 06/30/2017 KAREEM PENN Ot Z17.0 ESTROGEN RECEPTOR POSITIVE STATUS [ER+] 06/30/2017 KAREEM PENN Ot 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 06/30/2017 KAREEM PENN Ot Z90.11 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 06/30/2017 KAREEM PENN Ot Z92.3 PERSONAL HISTORY OF IRRADIATION 09/29/2017 Ot 611.72 LUMP OR MASS IN BREAST 09/29/2017 Ot 793.81 MAMMOGRAPHIC MICROCLACIFICATION 09/29/2017 Ot 174.9 MALIGN NEOPL BREAST NOS 09/29/2017 Ot V58.69 OTH MED,LT, CURRENT USE 09/29/2017 Ot 174.4 MAL PAWEL BREAST UP-OUTER 09/29/2017 Ot 196.3 MAL PAWLE LYMPH -AXILLA/ARM 09/29/2017 Ot V58.11 ENCOUNTER FOR ANTINEOPLASTIC CHEMOTHERAP 09/29/2017 Ot V58.69 OTH MED,LT, CURRENT USE 09/29/2017 Ot V86.0 ESTROGEN RECEPTOR POSITIVE STATUS [ER+] 09/29/2017 Ot 174.9 MALIGN NEOPL BREAST NOS 09/29/2017 Ot 276.69 OTHER FLUID OVERLOAD 09/29/2017 Ot 397.0 TRICUSPID VALVE DISEASE 09/29/2017 Ot 424.0 MITRAL VALVE DISORDER 09/29/2017 Ot V58.69 OTH MED,LT, CURRENT USE 09/29/2017 Ot V58.83 ENCOUNTER FOR THERAPEUTIC DRUG MONITORIN 09/29/2017 Ot V87.41 PERSONAL HISTORY OF ANTINEOPLASTIC CHEMO 09/29/2017 Ot 174.9 MALIGN NEOPL BREAST NOS 09/29/2017 Ot V58.69 OTH MED,LT, CURRENT USE 09/29/2017 Ot V87.41 PERSONAL HISTORY OF ANTINEOPLASTIC CHEMO 09/29/2017 Ot V58.69 OTH MED,LT, CURRENT USE 09/29/2017 Ot V58.83 ENCOUNTER FOR THERAPEUTIC DRUG MONITORIN 09/29/2017 Ot 428.0 CONGESTIVE HEART FAILURE NOS 09/29/2017 KAREEM PENN N Ot 996.74 OTH COMPL DUE TO [facility] VASCULAR DEVICE,IMP 09/29/2017 KEY JOSE [employer] MENDER Ot 729.5 PAIN IN LIMB 09/29/2017 EUGENIO BELTRAN [employer] Ot 729.5 PAIN IN LIMB 09/29/2017 EUGENIO BELTRAN [employer] Ot 729.81 SWELLING OF LIMB 09/29/2017 MUMTAZ MOYA [employer] Ot 174.4 MAL PAWEL BREAST UP-OUTER 09/29/2017 MUMTAZ MOYA [employer] Ot 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 09/29/2017 MUMTAZ MOYA [employer] Ot 250.00 DIAB NESOTR WO COMPL, TYPE II OR UNSPEC TY 09/29/2017 MUMTAZ MOYA [employer] Ot 782.3 EDEMA 09/29/2017 MUMTAZ MOYA [employer] M[employer]ER Ot V45.71 ACQUIRED ABSENCE OF BREAST AND NIPPLE 09/29/2017 MOYAMUMTAZ Tenorio [employer]ER Ot V58.67 LONG-TERM (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 OF INSULIN 09/29/2017 MOYAMUMTAZ Tenorio [employer] Ot V58.69 OTH MED,LT,CURRENT USE 09/29/2017 MUMTAZ MOYA [employer] M[employer] Ot V86.0 ESTROGEN RECEPTOR POSITIVE STATUS [ER+] 09/29/2017 GRIFFIN MUMTAZ Tenorio [employer] Ot 397.0 TRICUSPID VALVE DISEASE 09/29/2017 GRIFFIN MUMTAZ Tenorio [employer] M[employer]ER Ot 424.0 MITRAL VALVE DISORDER 09/29/2017 GRIFFINMUMTAZ [employer] MENDER Ot 782.3 EDEMA 09/29/2017 GRIFFINMUMTAZ [employer] MENDER Ot V58.69 OTH MED,LT,CURRENT USE 09/29/2017 GRIFFINMUMTAZ [employer] MENDER Ot V58.83 ENCOUNTER FOR THERAPEUTIC DRUG MONITORIN 09/29/2017 GRIFFINMUMTAZ [employer] MENDER Ot V87.41 PERSONAL HISTORY OF ANTINEOPLASTIC CHEMO 09/29/2017 GRIFFIN MUMTAZ Tenorio [employer] M[employer]ER Ot 174.4 MAL PAWEL BREAST UP-OUTER 09/29/2017 GRIFFINMUMTAZ [employer] MENDER Ot 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 09/29/2017 GRIFFINMUMTAZ [employer] MENDER Ot 250.00 DIAB NESTOR WO COMPL, TYPE II OR UNSPEC TY 09/29/2017 MOYAMUMTAZ [employer] MENDER Ot 457.1 OTHER LYMPHEDEMA 09/29/2017 GRIFFIN MUMTAZ Tenorio [employer] M[employer]ER Ot 782.3 EDEMA 09/29/2017 GRIFFIN MUMTAZ Tenorio [employer] M[employer]ER Ot V45.71 ACQUIRED ABSENCE OF BREAST AND NIPPLE 09/29/2017 GRIFFIN MUMTAZ Tenorio [employer] M[employer]ER Ot V58.67 LONG-TERM (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 OF INSULIN 09/29/2017 GRIFFIN MUMTAZ Tenorio [employer] M[employer]ER Ot V58.69 OTH MED,LT,CURRENT USE 09/29/2017 GRIFFINMUMTAZ [employer] MENDER Ot V86.0 ESTROGEN RECEPTOR POSITIVE STATUS [ER+] 09/29/2017 GRIFFIN MUMTAZ eTnorio [employer] M[employer]ER Ot 174.4 MAL PAWEL BREAST UP-OUTER 09/29/2017 GRIFFIN MUMTAZ S [employer] M[employer]ER Ot 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 09/29/2017 GRIFFIN HILAH S [employer]ER Ot 250.00 DIAB NESTOR WO COMPL, TYPE II OR UNSPEC TY 09/29/2017 MOYA, DCAH S [employer] M[employer]ER Ot V45.71 ACQUIRED ABSENCE OF BREAST AND NIPPLE 09/29/2017 GRIFFIN MUMTAZ S [employer] MENDER Ot V58.67 LONG-TERM (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 OF INSULIN 09/29/2017 MUMTAZ MOYA S [employer] MENDER Ot V58.69 OTH MED,LT,CURRENT USE 09/29/2017 MOYA, MUMTAZ S [employer] MENDER Ot V86.0 ESTROGEN RECEPTOR POSITIVE STATUS [ER+] 09/29/2017 GRIFFIN HILAH S [employer] M[employer]ER Ot 174.9 MALIGN NEOPL BREAST NOS 09/29/2017 MOYA HILAH S [employer] M[employer]ER Ot 397.0 TRICUSPID VALVE DISEASE 09/29/2017 MOYA HILAH S [employer] M[employer]ER Ot 424.0 MITRAL VALVE DISORDER 09/29/2017 GRIFFIN HILAH S [employer] M[employer]ER Ot 733.90 BONE CARTILAGE DIS NOS 09/29/2017 DC MOYARICHARD S [employer] MENDER Ot V58.69 OTH MED,LT,CURRENT USE 09/29/2017 MUMTAZ MOYA S [employer] MENDER Ot 174.9 MALIGN NEOPL BREAST NOS 09/29/2017 GRIFFIN MUMTAZ S [employer] MENDER Ot 250.00 DIAB NESTOR WO COMPL, TYPE II OR UNSPEC TY 09/29/2017 DC MOYARICHARD S [employer] MENDER Ot 397.0 TRICUSPID VALVE DISEASE 09/29/2017 MOYA HILAH S [employer] MENDER Ot 424.0 MITRAL VALVE DISORDER 09/29/2017 MOYA HILAH S [employer] M[employer]ER Ot 733.90 BONE CARTILAGE DIS NOS 09/29/2017 DC MOYARICHARD S [employer] MENDER Ot V45.71 ACQUIRED ABSENCE OF BREAST AND NIPPLE 09/29/2017 DC MOYARICHARD S [employer] MENDER Ot V58.67 LONG-TERM (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 OF INSULIN 09/29/2017 MOYADCAH S [employer] MENDER Ot V58.69 OTH MED,LT,CURRENT USE 09/29/2017 DC MOYAAH S [employer] MENDER Ot V86.0 ESTROGEN RECEPTOR POSITIVE STATUS [ER+] 09/29/2017 GRIFFIN HILAH S [employer] M[employer]ER Ot 174.9 MALIGN NEOPL BREAST NOS 09/29/2017 DC MOYAAH S [employer] MENDER Ot 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 09/29/2017 MOYA, HILAH S [employer] MENDER Ot 244.9 HYPOTHYROIDISM NOS 09/29/2017 MOYAMUMTAZ Tenorio S [employer] MENDER Ot 250.00 DIAB NESTOR WO COMPL, TYPE II OR UNSPEC TY 09/29/2017 MOYAMUMTAZ Tenorio S [employer] MENDER Ot V45.71 ACQUIRED ABSENCE OF BREAST AND NIPPLE 09/29/2017 MUMTAZ MOYA S [employer] MENDER Ot V58.67 LONG-TERM (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 OF INSULIN 09/29/2017 MOYAMUMTAZ Tenorio S [employer] MENDER Ot V58.69 OTH MED,LT,CURRENT USE 09/29/2017 MUMTAZ MOYA S [employer] MENDER Ot V86.0 ESTROGEN RECEPTOR POSITIVE STATUS [ER+] 09/29/2017 MOYAMUMTAZ Tenorio S [employer] MENDER Ot V87.41 PERSONAL HISTORY OF ANTINEOPLASTIC CHEMO 09/29/2017 MOYAMUMTAZ Tenorio S [employer] MENDER Ot 174.9 MALIGN NEOPL BREAST NOS 09/29/2017 MOYAMUMTAZ Tenorio S [employer] MENDER Ot 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 09/29/2017 MOYAMUMTAZ Tenorio S [employer] MENDER Ot 244.9 HYPOTHYROIDISM NOS 09/29/2017 MOYAMUMTAZ Tenorio S [employer] MENDER Ot 250.00 DIAB NESTOR WO COMPL, TYPE II OR UNSPEC TY 09/29/2017 MOYAMUMTAZ Tenorio S [employer] MENDER Ot V45.71 ACQUIRED ABSENCE OF BREAST AND NIPPLE 09/29/2017 MOYAMUMTAZ Tenorio S [employer] MENDER Ot V58.67 LONG-TERM (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 OF INSULIN 09/29/2017 MOYAMUMTAZ Tenorio S [employer] MENDER Ot V58.69 OTH MED,LT,CURRENT USE 09/29/2017 MOYAMUMTAZ Tenorio S [employer] MENDER Ot V86.0 ESTROGEN RECEPTOR POSITIVE STATUS [ER+] 09/29/2017 MOYAMUMTAZ Tenorio S [employer] MENDER Ot V87.41 PERSONAL HISTORY OF ANTINEOPLASTIC CHEMO 09/29/2017 MOYAMUMTAZ Tenorio S [employer] MENDER Ot 174.9 MALIGN NEOPL BREAST NOS 09/29/2017 MOYADCAH S [employer] MENDER Ot 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 09/29/2017 MOYAMUMTAZ Tenorio S [employer] MENDER Ot V15.3 HX OF IRRADIATION 09/29/2017 MOYAMUMTAZ S [employer] MENDER Ot V45.71 ACQUIRED ABSENCE OF BREAST AND NIPPLE 09/29/2017 MOYA MUMTAZ S [employer] MENDER Ot V58.69 OTH MED,LT,CURRENT USE 09/29/2017 MUMTAZ MOYA [employer] MENDER Ot V86.0 ESTROGEN RECEPTOR POSITIVE STATUS [ER+] 09/29/2017 MOYAMUMTAZ Tenorio [employer] MENDER Ot V87.41 PERSONAL HISTORY OF ANTINEOPLASTIC CHEMO 09/29/2017 MUMTAZ MOYA [employer] MENDER Ot 174.9 MALIGN NEOPL BREAST NOS 09/29/2017 MUMTAZ MOYA [employer] MENDER Ot 397.0 TRICUSPID VALVE DISEASE 09/29/2017 MOYAMUMTAZ Tenoiro [employer] MENDER Ot 424.0 MITRAL VALVE DISORDER 09/29/2017 MUMTAZ MOYAP Ot V58.69 OTH MED,LT,CURRENT USE 09/29/2017 MUMTAZ MOYAP Ot V58.83 ENCOUNTER FOR THERAPEUTIC DRUG MONITORIN 09/29/2017 MOYAMUMTAZ [employer] MENDER Ot V87.41 PERSONAL HISTORY OF ANTINEOPLASTIC CHEMO 09/29/2017 MOYAMUMTAZ [employer] MENDER Ot 174.9 MALIGN NEOPL BREAST NOS 09/29/2017 MOYA MUMTAZ Tenorio [employer] MENDER Ot 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 09/29/2017 GRIFFIN MUMTAZ Tenorio [employer] MENDER Ot V15.3 HX OF IRRADIATION 09/29/2017 GRIFFIN MUMTAZ Tenorio [employer] MENDER Ot V16.41 FAM HX-MAL NEOP-OVARY 09/29/2017 GRIFFIN MUMTAZ Tenorio [employer] MENDER Ot V45.71 ACQUIRED ABSENCE OF BREAST AND NIPPLE 09/29/2017 GRIFFIN MUMTAZ LYNNP Ot V58.69 OTH MED,LT,CURRENT USE 09/29/2017 OMYAMUMTAZ Tenorio [employer] MENDER Ot V86.0 ESTROGEN RECEPTOR POSITIVE STATUS [ER+] 09/29/2017 MOYAMUMTAZ Tenorio [employer] MENDER Ot V87.41 PERSONAL HISTORY OF ANTINEOPLASTIC CHEMO 09/29/2017 GRIFFINMUMTAZ [employer] MENDER Ot 174.9 MALIGN NEOPL BREAST NOS 09/29/2017 GRIFFINMUMTAZ [employer] MENDER Ot 793.11 SOLITARY PULMONARY NODULE 09/29/2017 Ot 174.4 MAL PAWEL BREAST UP-OUTER 09/29/2017 Ot 196.3 MAL PAWEL LYMPH -AXILLA/ARM 09/29/2017 Ot V58.11 ENCOUNTER FOR ANTINEOPLASTIC CHEMOTHERAP 09/29/2017 Ot V58.69 OTH MED,LT, CURRENT USE 09/29/2017 Ot V86.0 ESTROGEN RECEPTOR POSITIVE STATUS [ER+] 09/29/2017 MUMTAZ MOYA [employer] M[employer]ER Ot 174.9 MALIGN NEOPL BREAST NOS 09/29/2017 MUMTAZ MOYA [employer] MENDER Ot 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 09/29/2017 MUMTAZ MOYA [employer] MENDER Ot V15.3 HX OF IRRADIATION 09/29/2017 MUMTAZ MOYA [employer] MENDER Ot V16.41 FAM HX-MAL NEOP-OVARY 09/29/2017 MUMTAZ MOYA S [employer] MENDER Ot V45.71 ACQUIRED ABSENCE OF BREAST AND NIPPLE 09/29/2017 MUMTAZ MOYA S [employer] MENDER Ot V58.69 OTH MED,LT,CURRENT USE 09/29/2017 MUMTAZ MOYA [employer] MENDER Ot V86.0 ESTROGEN RECEPTOR POSITIVE STATUS [ER+] 09/29/2017 MUMTAZ MOYA [employer] MENDER Ot V87.41 PERSONAL HISTORY OF ANTINEOPLASTIC CHEMO 09/29/2017 MOYAMUMTAZ Tenorio [employer] MENDER Ot 174.9 MALIGN NEOPL BREAST NOS 09/29/2017 MUMTAZ MOYA [employer] MENDER Ot 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 09/29/2017 MUMTAZ MOYA [employer] MENDER Ot V15.3 HX OF IRRADIATION 09/29/2017 MUMTAZ MOYA S [employer] MENDER Ot V16.41 FAM HX-MAL NEOP-OVARY 09/29/2017 MUMTAZ MOYA [employer] MENDER Ot V45.71 ACQUIRED ABSENCE OF BREAST AND NIPPLE 09/29/2017 MOYAMUMTAZ Tenorio [employer] MENDER Ot V58.69 OTH MED,LT,CURRENT USE 09/29/2017 MUMTAZ MOYA [employer] MENDER Ot V86.0 ESTROGEN RECEPTOR POSITIVE STATUS [ER+] 09/29/2017 MOYAMUMTAZ Tenorio S [employer] MENDER Ot V87.41 PERSONAL HISTORY OF ANTINEOPLASTIC CHEMO 09/29/2017 MOYA MUMTAZ S [employer] MENDER Ot 174.9 MALIGN NEOPL BREAST NOS 09/29/2017 MOYAMUMTAZ Tenorio S [employer] MENDER Ot 174.9 MALIGN NEOPL BREAST NOS 09/29/2017 MOYAMUMTAZ Tenorio S [employer] MENDER Ot 793.11 SOLITARY PULMONARY NODULE 09/29/2017 ADRI GREEN, MADELINE Jackson Ot 174.9 MALIGN NEOPL BREAST NOS 09/29/2017 ADRI GREEN, MADELINE Jackson Ot 244.9 HYPOTHYROIDISM NOS 09/29/2017 ADRI GREEN, MADELINE Jackson Ot 397.0 TRICUSPID VALVE DISEASE 09/29/2017 MADELINE IVAN MD Ot 401.9 HYPERTENSION NOS 09/29/2017 ADRI GREEN, MADELINE Jackson Ot 424.0 MITRAL VALVE DISORDER 09/29/2017 MADELINE IVAN MD Ot 782.3 EDEMA 09/29/2017 MUMTAZ MOYA [employer] MENDER Ot 174.9 MALIGN NEOPL BREAST NOS 09/29/2017 FILI, KAREEM Humphreys Ot 174.9 MALIGN NEOPL BREAST NOS 09/29/2017 GASTON PENNJESSICA N Ot 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 09/29/2017 KAREEM PENN Petr Ot V15.3 HX OF IRRADIATION 09/29/2017 KAREEM PENN Petr Ot V45.71 ACQUIRED ABSENCE OF BREAST AND NIPPLE 09/29/2017 KAREEM PENN Petr Ot V58.69 OTH MED,LT,CURRENT USE 09/29/2017 KAREEM PENN Petr Ot V86.0 ESTROGEN RECEPTOR POSITIVE STATUS [ER+] 09/29/2017 KAREEM PENN Petr Ot V87.41 PERSONAL HISTORY OF ANTINEOPLASTIC CHEMO 09/29/2017 MUMTAZ MOYA [employer] MENDER Ot 174.9 MALIGN NEOPL BREAST NOS 09/29/2017 MUMTAZ MOYA [employer] MENDER Ot 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 09/29/2017 MUMTAZ MOYA [employer] MENDER Ot 250.00 DIAB NESTOR WO COMPL, TYPE II OR UNSPEC TY 09/29/2017 MUMTAZ MOYA [employer] MENDER Ot 305.1 TOBACCO USE DISORDER 09/29/2017 MUMTAZ MOYA [employer] MENDER Ot V15.3 HX OF IRRADIATION 09/29/2017 MUMTAZ MOYA [employer] MENDER Ot V45.71 ACQUIRED ABSENCE OF BREAST AND NIPPLE 09/29/2017 MUMTAZ MOYA [employer] MENDER Ot V58.67 LONG-TERM (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 OF INSULIN 09/29/2017 MUMTAZ MOYA [employer] MENDER Ot V58.69 OTH MED,LT,CURRENT USE 09/29/2017 MUMTAZ MOYA [employer] MENDER Ot V86.0 ESTROGEN RECEPTOR POSITIVE STATUS [ER+] 09/29/2017 MUMTAZ MOYA [employer] MENDER Ot V87.41 PERSONAL HISTORY OF ANTINEOPLASTIC CHEMO 09/29/2017 MOYAMUMTAZ Tenorio [employer] MENDER Ot 611.72 LUMP OR MASS IN BREAST 09/29/2017 MOYA MUMTAZ Tenorio [employer] MENDER Ot 793.11 SOLITARY PULMONARY NODULE 09/29/2017 MOYAMUMTAZ Tenorio [employer] MENDER Ot V10.3 HX OF BREAST MALIGNANCY 09/29/2017 MOYAMUMTAZ Tenorio [employer] MENDER Ot V45.71 ACQUIRED ABSENCE OF BREAST AND NIPPLE 09/29/2017 GRIFFIN MUMTAZ Tenorio [employer] MENDER Ot 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.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 09/29/2017 GRIFFIN MUMTAZ Tenorio [employer] MENDER Ot 174.9 MALIGN NEOPL BREAST NOS 09/29/2017 GRIFFIN MUMTAZ Tenorio [employer] MENDER Ot 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 09/29/2017 GRIFFIN MUMTAZ Tenorio [employer] MENDER Ot 250.00 DIAB NESTOR WO COMPL, TYPE II OR UNSPEC TY 09/29/2017 GRIFFIN MUMTAZ Tenorio [employer] MENDER Ot 305.1 TOBACCO USE DISORDER 09/29/2017 GRIFFIN MUMTAZ Tenorio [employer] MENDER Ot 733.90 BONE CARTILAGE DIS NOS 09/29/2017 GRIFFIN MUMTAZ Tenorio [employer] MENDER Ot V15.3 HX OF IRRADIATION 09/29/2017 GRIFFIN MUMTAZ Tenorio [employer] MENDER Ot V45.71 ACQUIRED ABSENCE OF BREAST AND NIPPLE 09/29/2017 GRIFFIN MUMTAZ Tenorio [employer] MENDER Ot V58.67 LONG-TERM (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 OF INSULIN 09/29/2017 GRIFFIN MUMTAZ Tenorio [employer] MENDER Ot V58.69 OTH MED,LT,CURRENT USE 09/29/2017 GRIFFIN MUMTAZ Tenorio [employer] MENDER Ot V86.0 ESTROGEN RECEPTOR POSITIVE STATUS [ER+] 09/29/2017 GRIFFIN MUMTAZ Tenorio [employer] MENDER Ot V87.41 PERSONAL HISTORY OF ANTINEOPLASTIC CHEMO 09/29/2017 GRIFFIN MUMTAZ Tenorio [employer] MENDER Ot 174.9 MALIGN NEOPL BREAST NOS 09/29/2017 GRIFFIN MUMTAZ Tenorio [employer] MENDER Ot 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 09/29/2017 GRIFFIN MUMTAZ Tenorio [employer] MENDER Ot 733.90 BONE CARTILAGE DIS NOS 09/29/2017 GRIFFIN MUMTAZ Tenorio [employer] MENDER Ot 793.11 SOLITARY PULMONARY NODULE 09/29/2017 GRIFFIN MUMTAZ Tenorio [employer] MENDER Ot V84.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 09/29/2017 ENDER PAZ Ot E10.9 TYPE 1 DIABETES MELLITUS WITHOUT COMPLIC 09/29/2017 ENDER PAZ Ot E66.8 OTHER OBESITY 09/29/2017 ENDER PAZ Ot I10 ESSENTIAL (PRIMARY) HYPERTENSION 09/29/2017 ENDER PAZ Ot R60.9 EDEMA, UNSPECIFIED 09/29/2017 MARK HUTCHINSON MD Ot M06.9 RHEUMATOID ARTHRITIS, UNSPECIFIED 09/29/2017 MUMTAZ MOYA Ot C50.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 09/29/2017 MUMTAZ MOYA Ot C77.3 SEC AND UNSP MALIG NEOPLASM OF AXILLA AN 09/29/2017 MUMTAZ MOYA Ot M85.80 OTH DISRD OF BONE DENSITY AND STRUCTURE, 09/29/2017 MUMTAZ MOYA Ot Z15.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 09/29/2017 MUMTAZ MOYA [employer] MENDER Ot Z17.0 ESTROGEN RECEPTOR POSITIVE STATUS [ER+] 09/29/2017 MUMTAZ MOYA [employer] MENDER Ot Z79.811 [facility] (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 OF AROMATASE INH 09/29/2017 MUMTAZ MOYA Ot Z90.11 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 09/29/2017 MUMTAZ MOYA [employer] MENDER Ot Z92.3 PERSONAL HISTORY OF IRRADIATION 09/29/2017 MUMTAZ MOYA Ot 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 09/29/2017 MUMTAZ MOYA [employer] MENDER Ot 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 09/29/2017 MUMTAZ MOYA Ot C77.3 SEC AND UNSP MALIG NEOPLASM OF AXILLA AN 09/29/2017 MUMTAZ MOYAP Ot M85.80 OTH DISRD OF BONE DENSITY AND STRUCTURE, 09/29/2017 MUMTAZ MOYAP Ot Z17.0 ESTROGEN RECEPTOR POSITIVE STATUS [ER+] 09/29/2017 MUMTAZ MOYA [employer] MENDER Ot 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 09/29/2017 MUMTAZ MOYA [employer] MENDER Ot Z90.11 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 09/29/2017 MUMTAZ MOYA [employer] MENDER Ot Z92.3 PERSONAL HISTORY OF IRRADIATION 09/29/2017 MUMTAZ MOYAP Ot 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 09/29/2017 MUMTAZ MOYA [employer] MENDER Ot Z85.3 PERSONAL HISTORY OF MALIGNANT NEOPLASM O 09/29/2017 MUMTAZ MOYA [employer] MENDER Ot Z90.11 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 09/29/2017 MUMTAZ MOYA [employer] MENDER Ot 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 09/29/2017 MUMTAZ MOYA [employer] MENDER Ot Z84.81 FAMILY HISTORY OF CARRIER OF GENETIC DIS 10/07/2017 YONAS FRASER MD, Ot 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 10/07/2017 YONAS FRASER MD, Ot C77.3 SEC AND UNSP MALIG NEOPLASM OF AXILLA AN 10/07/2017 YONAS FRASER MD, Ot M85.80 OT DISRD OF BONE DENSITY AND STRUCTURE, 10/07/2017 YONAS FRASER MD, Ot Z17.0 ESTROGEN RECEPTOR POSITIVE STATUS [ER+] 10/07/2017 YONAS FRASER MD, Ot Z79.811 [facility] (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 OF AROMATASE INH 10/07/2017 YONAS FRASER MD, Ot Z90.11 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 10/07/2017 YONAS FRASER MD, Ot Z92.3 PERSONAL HISTORY OF IRRADIATION 12/27/2017 YONAS FRAESR MD, Ot 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 12/27/2017 YONAS FRASER MD, Ot C77.3 SEC AND UNSP MALIG NEOPLASM OF AXILLA AN 12/27/2017 YONAS FRASER MD, Ot M85.80 OTH DISRD OF BONE DENSITY AND STRUCTURE, 12/27/2017 YONAS FRASER MD, Ot Z17.0 ESTROGEN RECEPTOR POSITIVE STATUS [ER+] 12/27/2017 YONAS FRASER MD, Ot Z79.811 [facility] (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 OF AROMATASE INH 12/27/2017 YONAS FRASER MD, Ot Z90.11 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 12/27/2017 YONAS FRASER MD, Ot Z92.3 PERSONAL HISTORY OF IRRADIATION 12/29/2017 YONAS FRASER MD Ot 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 12/29/2017 YONAS FRASER MD, Ot C77.3 SEC AND UNSP MALIG NEOPLASM OF AXILLA AN 12/29/2017 YONAS FRASER MD Ot M85.80 OTH DISRD OF BONE DENSITY AND STRUCTURE, 12/29/2017 YONAS FRASER MD Ot Z17.0 ESTROGEN RECEPTOR POSITIVE STATUS [ER+] 12/29/2017 YONAS FRASER MD Ot 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 12/29/2017 YONAS FRASER MD Ot Z90.11 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 12/29/2017 YONAS FRASER MD Ot Z92.3 PERSONAL HISTORY OF IRRADIATION 02/28/2018 FILIKAREEM Ot 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 02/28/2018 KAREEM PENN Ot C77.3 SEC AND UNSP MALIG NEOPLASM OF AXILLA AN 02/28/2018 KAREEM PENN Ot M85.80 OTH DISRD OF BONE DENSITY AND STRUCTURE, 02/28/2018 FILIKAREEM Ot Z17.0 ESTROGEN RECEPTOR POSITIVE STATUS [ER+] 02/28/2018 KAREEM PENN Ot 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 02/28/2018 FILIKAREEM Ot Z90.11 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 02/28/2018 KAREEM PENN Ot Z92.3 PERSONAL HISTORY OF IRRADIATION 02/28/2018 KAREEM PENN Ot 996.74 OTH COMPL DUE TO [facility] VASCULAR DEVICE,IMP 02/28/2018 KEY JOES [employer] Ot 729.5 PAIN IN LIMB 02/28/2018 EUGENIO BELTRAN [employer] Ot 729.5 PAIN IN LIMB 02/28/2018 EUGENIO BELTRAN [employer] Ot 729.81 SWELLING OF LIMB 02/28/2018 MUMTAZ MOYA [employer] Ot 174.4 MAL PAWEL BREAST UP-OUTER 02/28/2018 MUMTAZ MOYA [employer] Ot 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 02/28/2018 MUMTAZ MOYA [employer] Ot 250.00 DIAB NESTOR WO COMPL, TYPE II OR UNSPEC TY 02/28/2018 MUMTAZ MOYA [employer] Ot 782.3 EDEMA 02/28/2018 MUMTAZ MOYA [employer] Ot V45.71 ACQUIRED ABSENCE OF BREAST AND NIPPLE 02/28/2018 MUMTAZ MOYA [employer] Ot V58.67 LONG-TERM (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 OF INSULIN 02/28/2018 MUMTAZ MOYA [employer] Ot V58.69 OTH MED,LT,CURRENT USE 02/28/2018 MUMTAZ MOYA [employer] Ot V86.0 ESTROGEN RECEPTOR POSITIVE STATUS [ER+] 02/28/2018 MUMTAZ MOYA [employer] Ot 397.0 TRICUSPID VALVE DISEASE 02/28/2018 MUMTAZ MOYA [employer] Ot 424.0 MITRAL VALVE DISORDER 02/28/2018 MUMTAZ MOYA [employer] Ot 782.3 EDEMA 02/28/2018 MUMTAZ MOYA [employer] Ot V58.69 OTH MED,LT,CURRENT USE 02/28/2018 MUMTAZ MOYA [employer] Ot V58.83 ENCOUNTER FOR THERAPEUTIC DRUG MONITORIN 02/28/2018 MUMTAZ MOYA [employer] Ot V87.41 PERSONAL HISTORY OF ANTINEOPLASTIC CHEMO 02/28/2018 MUMTAZ MOYA [employer] Ot 174.4 MAL PAWEL BREAST UP-OUTER 02/28/2018 MUMTAZ MOYA S [employer] Ot 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 02/28/2018 MUMTAZ MOYA [employer] Ot 250.00 DIAB NESTOR WO COMPL, TYPE II OR UNSPEC TY 02/28/2018 MUMTAZ MOYA [employer] Ot 457.1 OTHER LYMPHEDEMA 02/28/2018 MUMTAZ MOYA [employer] Ot 782.3 EDEMA 02/28/2018 MUMTAZ MOYA S [employer] Ot V45.71 ACQUIRED ABSENCE OF BREAST AND NIPPLE 02/28/2018 MUMTAZ MOYA S [employer] Ot V58.67 LONG-TERM (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 OF INSULIN 02/28/2018 MUMTAZ MOYA [employer] Ot V58.69 OTH MED,LT,CURRENT USE 02/28/2018 MUMTAZ MOYA S [employer] Ot V86.0 ESTROGEN RECEPTOR POSITIVE STATUS [ER+] 02/28/2018 MUMTAZ MOYA [employer] Ot 174.4 MAL PAWEL BREAST UP-OUTER 02/28/2018 MUMTAZ MOYA [employer] Ot 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 02/28/2018 MUMTAZ MOYA S [employer] Ot 250.00 DIAB NESTOR WO COMPL, TYPE II OR UNSPEC TY 02/28/2018 MUMTAZ MOYA S [employer] Ot V45.71 ACQUIRED ABSENCE OF BREAST AND NIPPLE 02/28/2018 MUMTAZ MOYA S [employer] Ot V58.67 LONG-TERM (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 OF INSULIN 02/28/2018 MUMTAZ MOYA [employer] Ot V58.69 OTH MED,LT,CURRENT USE 02/28/2018 MUMTAZ MOYA [employer] Ot V86.0 ESTROGEN RECEPTOR POSITIVE STATUS [ER+] 02/28/2018 MUMTAZ MOYA S [employer] Ot 174.9 MALIGN NEOPL BREAST NOS 02/28/2018 MUMTAZ MOYA S [employer] Ot 397.0 TRICUSPID VALVE DISEASE 02/28/2018 MUMTAZ MOYA S [employer] Ot 424.0 MITRAL VALVE DISORDER 02/28/2018 MUMTAZ MOYA S [employer] Ot 733.90 BONE CARTILAGE DIS NOS 02/28/2018 MUMTAZ MOYA S [employer] Ot V58.69 OTH MED,LT,CURRENT USE 02/28/2018 MUMTAZ MOYA [employer] Ot 174.9 MALIGN NEOPL BREAST NOS 02/28/2018 MUMTAZ MOYA S [employer] Ot 250.00 DIAB NESTOR WO COMPL, TYPE II OR UNSPEC TY 02/28/2018 MUMTAZ MOYA S [employer] Ot 397.0 TRICUSPID VALVE DISEASE 02/28/2018 MUMTAZ MOYA S [employer] Ot 424.0 MITRAL VALVE DISORDER 02/28/2018 MUMTAZ MOYA S [employer] Ot 733.90 BONE CARTILAGE DIS NOS 02/28/2018 MUMTAZ MOYA S [employer] M[employer] Ot V45.71 ACQUIRED ABSENCE OF BREAST AND NIPPLE 02/28/2018 MUMTAZ MOYA [employer] Ot V58.67 LONG-TERM (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 OF INSULIN 02/28/2018 MUMTAZ MOYA S [employer] Ot V58.69 OTH MED,LT,CURRENT USE 02/28/2018 MUMTAZ MOYA S [employer] Ot V86.0 ESTROGEN RECEPTOR POSITIVE STATUS [ER+] 02/28/2018 MUMTAZ MOYA S [employer] Ot 174.9 MALIGN NEOPL BREAST NOS 02/28/2018 MUMTAZ MOYA S [employer] Ot 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 02/28/2018 MUMTAZ MOYA S [employer] Ot 244.9 HYPOTHYROIDISM NOS 02/28/2018 DC MOYARICHARD S [employer]ER Ot 250.00 DIAB NESTOR WO COMPL, TYPE II OR UNSPEC TY 02/28/2018 MUMTAZ MOYA S [employer] Ot V45.71 ACQUIRED ABSENCE OF BREAST AND NIPPLE 02/28/2018 MUMTAZ MOYA S [employer] M[employer] Ot V58.67 LONG-TERM (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 OF INSULIN 02/28/2018 MUMTAZ MOYA S [employer] Ot V58.69 OTH MED,LT,CURRENT USE 02/28/2018 MUMTAZ MOYA S [employer] M[employer] Ot V86.0 ESTROGEN RECEPTOR POSITIVE STATUS [ER+] 02/28/2018 MUMTAZ MOYA S [employer] Ot V87.41 PERSONAL HISTORY OF ANTINEOPLASTIC CHEMO 02/28/2018 MUMTAZ MOYA S [employer] Ot 174.9 MALIGN NEOPL BREAST NOS 02/28/2018 MUMTAZ MOYA S [employer] Ot 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 02/28/2018 MUMTAZ MOYA S [employer] Ot 244.9 HYPOTHYROIDISM NOS 02/28/2018 MUMTAZ MOYA S [employer] Ot 250.00 DIAB NESTOR WO COMPL, TYPE II OR UNSPEC TY 02/28/2018 MUMTAZ MOYA S [employer] Ot V45.71 ACQUIRED ABSENCE OF BREAST AND NIPPLE 02/28/2018 MUMTAZ MOYA S [employer] Ot V58.67 LONG-TERM (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 OF INSULIN 02/28/2018 MUMTAZ MOYA S [employer] Ot V58.69 OTH MED,LT,CURRENT USE 02/28/2018 MUMTAZ MOYA S [employer] Ot V86.0 ESTROGEN RECEPTOR POSITIVE STATUS [ER+] 02/28/2018 MUMTAZ MOYA S [employer] Ot V87.41 PERSONAL HISTORY OF ANTINEOPLASTIC CHEMO 02/28/2018 MUMTAZ MOYA S [employer] Ot 174.9 MALIGN NEOPL BREAST NOS 02/28/2018 MUMTAZ MOYA S [employer] Ot 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 02/28/2018 MUMTAZ MOYA [employer] Ot V15.3 HX OF IRRADIATION 02/28/2018 DC MOYARICHARD Coby [employer] Ot V45.71 ACQUIRED ABSENCE OF BREAST AND NIPPLE 02/28/2018 MUMTAZ MYOA [employer] Ot V58.69 OTH MED,LT,CURRENT USE 02/28/2018 MUMTAZ MOYA [employer] Ot V86.0 ESTROGEN RECEPTOR POSITIVE STATUS [ER+] 02/28/2018 MUMTAZ MOYA [employer] Ot V87.41 PERSONAL HISTORY OF ANTINEOPLASTIC CHEMO 02/28/2018 MUMTAZ MOYA [employer] Ot 174.9 MALIGN NEOPL BREAST NOS 02/28/2018 MUMTAZ MOYA [employer] Ot 397.0 TRICUSPID VALVE DISEASE 02/28/2018 MUMTAZ MOYA [employer] Ot 424.0 MITRAL VALVE DISORDER 02/28/2018 MUMTAZ MOYAP Ot V58.69 OTH MED,LT,CURRENT USE 02/28/2018 MUMTAZ MOYAP Ot V58.83 ENCOUNTER FOR THERAPEUTIC DRUG MONITORIN 02/28/2018 MUMTAZ MOYA [employer] Ot V87.41 PERSONAL HISTORY OF ANTINEOPLASTIC CHEMO 02/28/2018 MUMTAZ MOYA [employer] Ot 174.9 MALIGN NEOPL BREAST NOS 02/28/2018 MUMTAZ MOYA [employer] Ot 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 02/28/2018 MUMTAZ MOYA [employer] Ot V15.3 HX OF IRRADIATION 02/28/2018 MUMTAZ MOYA [employer] Ot V16.41 FAM HX-MAL NEOP-OVARY 02/28/2018 MUMTAZ MOYA [employer] Ot V45.71 ACQUIRED ABSENCE OF BREAST AND NIPPLE 02/28/2018 MUMTAZ MOYA [employer] Ot V58.69 OTH MED,LT,CURRENT USE 02/28/2018 MUMTAZ MOYA [employer] Ot V86.0 ESTROGEN RECEPTOR POSITIVE STATUS [ER+] 02/28/2018 MUMTAZ MOYA [employer] Ot V87.41 PERSONAL HISTORY OF ANTINEOPLASTIC CHEMO 02/28/2018 MUMTAZ MOYA [employer] Ot 174.9 MALIGN NEOPL BREAST NOS 02/28/2018 MUMTAZ MOYA [employer] Ot 793.11 SOLITARY PULMONARY NODULE 02/28/2018 Ot 174.4 MAL PAWEL BREAST UP-OUTER 02/28/2018 Ot 196.3 MAL PAWEL LYMPH -AXILLA/ARM 02/28/2018 Ot V58.11 ENCOUNTER FOR ANTINEOPLASTIC CHEMOTHERAP 02/28/2018 Ot V58.69 OTH MED,LT, CURRENT USE 02/28/2018 Ot V86.0 ESTROGEN RECEPTOR POSITIVE STATUS [ER+] 02/28/2018 MUMTAZ MOYA [employer] Ot 174.9 MALIGN NEOPL BREAST NOS 02/28/2018 MUMTAZ MOYA [employer] Ot 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 02/28/2018 MUMTAZ MOYA [employer] Ot V15.3 HX OF IRRADIATION 02/28/2018 MUMTAZ MOYA [employer] Ot V16.41 FAM HX-MAL NEOP-OVARY 02/28/2018 MUMTAZ MOYA [employer] Ot V45.71 ACQUIRED ABSENCE OF BREAST AND NIPPLE 02/28/2018 MUMTAZ MOYAP Ot V58.69 OTH MED,LT,CURRENT USE 02/28/2018 MUMTAZ MOYA [employer] Ot V86.0 ESTROGEN RECEPTOR POSITIVE STATUS [ER+] 02/28/2018 MUMTAZ MOYA [employer] Ot V87.41 PERSONAL HISTORY OF ANTINEOPLASTIC CHEMO 02/28/2018 MUMTAZ MOYA [employer] Ot 174.9 MALIGN NEOPL BREAST NOS 02/28/2018 MUMTAZ MOYA [employer] Ot 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 02/28/2018 MUMTAZ MOYA [employer] Ot V15.3 HX OF IRRADIATION 02/28/2018 MUMTAZ MOYA [employer] Ot V16.41 FAM HX-MAL NEOP-OVARY 02/28/2018 MUMTAZ MOYA [employer] Ot V45.71 ACQUIRED ABSENCE OF BREAST AND NIPPLE 02/28/2018 MUMTAZ MOYA [employer] Ot V58.69 OTH MED,LT,CURRENT USE 02/28/2018 MUMTAZ MOYA [employer] Ot V86.0 ESTROGEN RECEPTOR POSITIVE STATUS [ER+] 02/28/2018 MUMTAZ MOYA [employer] Ot V87.41 PERSONAL HISTORY OF ANTINEOPLASTIC CHEMO 02/28/2018 MUMTAZ MOYA [employer] Ot 174.9 MALIGN NEOPL BREAST NOS 02/28/2018 MUMTAZ MOYA [employer] Ot 174.9 MALIGN NEOPL BREAST NOS 02/28/2018 MUMTAZ MOYA [employer] Ot 793.11 SOLITARY PULMONARY NODULE 02/28/2018 ADRI GREEN, MADELINE Jackson Ot 174.9 MALIGN NEOPL BREAST NOS 02/28/2018 ADRI GREEN, MADELINE Jackson Ot 244.9 HYPOTHYROIDISM NOS 02/28/2018 ADRI GREEN, MADELINE Jackson Ot 397.0 TRICUSPID VALVE DISEASE 02/28/2018 ADRI GREEN, MADELINE Jackson Ot 401.9 HYPERTENSION NOS 02/28/2018 ADRI GREEN, MADELINE Jackson Ot 424.0 MITRAL VALVE DISORDER 02/28/2018 ADRI GREEN, MADELINE Jackson Ot 782.3 EDEMA 02/28/2018 MUMTAZ MOYA [employer] Ot 174.9 MALIGN NEOPL BREAST NOS 02/28/2018 KAREEM PENN Ot 174.9 MALIGN NEOPL BREAST NOS 02/28/2018 KAREEM PENN Ot 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 02/28/2018 KAREEM PENN Ot V15.3 HX OF IRRADIATION 02/28/2018 KAREEM PENN Ot V45.71 ACQUIRED ABSENCE OF BREAST AND NIPPLE 02/28/2018 KAREEM PENN Ot V58.69 OTH MED,LT,CURRENT USE 02/28/2018 KAREEM PENN Ot V86.0 ESTROGEN RECEPTOR POSITIVE STATUS [ER+] 02/28/2018 KAREEM PENN Ot V87.41 PERSONAL HISTORY OF ANTINEOPLASTIC CHEMO 02/28/2018 MUMTAZ MOYA [employer] Ot 174.9 MALIGN NEOPL BREAST NOS 02/28/2018 MUMTAZ MOYA [employer] Ot 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 02/28/2018 MUMTAZ MOYA [employer] Ot 250.00 DIAB NESTOR WO COMPL, TYPE II OR UNSPEC TY 02/28/2018 MUMTAZ MOYA [employer] Ot 305.1 TOBACCO USE DISORDER 02/28/2018 MUMTAZ MOYA [employer] Ot V15.3 HX OF IRRADIATION 02/28/2018 MUMTAZ MOYA [employer] Ot V45.71 ACQUIRED ABSENCE OF BREAST AND NIPPLE 02/28/2018 MUMTAZ MOYA [employer] Ot V58.67 LONG-TERM (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 OF INSULIN 02/28/2018 MUMTAZ MOYA [employer] Ot V58.69 OTH MED,LT,CURRENT USE 02/28/2018 MUMTAZ MOYA [employer] M[employer] Ot V86.0 ESTROGEN RECEPTOR POSITIVE STATUS [ER+] 02/28/2018 MUMTAZ MOYA [employer] M[employer] Ot V87.41 PERSONAL HISTORY OF ANTINEOPLASTIC CHEMO 02/28/2018 MUMTAZ MOYA [employer] Ot 611.72 LUMP OR MASS IN BREAST 02/28/2018 MUMTAZ OMYA [employer] Ot 793.11 SOLITARY PULMONARY NODULE 02/28/2018 MUMTAZ MOYA [employer] Ot V10.3 HX OF BREAST MALIGNANCY 02/28/2018 MUMTAZ MOYA [employer] Ot V45.71 ACQUIRED ABSENCE OF BREAST AND NIPPLE 02/28/2018 MUMTAZ MOYA [employer] M[employer] Ot V84.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 02/28/2018 MUMTAZ MOYA [employer] Ot 174.9 MALIGN NEOPL BREAST NOS 02/28/2018 MUMTAZ MOYA [employer] Ot 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 02/28/2018 MUMTAZ MOYA [employer] Ot 250.00 DIAB NESTOR WO COMPL, TYPE II OR UNSPEC TY 02/28/2018 DC MOYARICHARD Coby [employer] Ot 305.1 TOBACCO USE DISORDER 02/28/2018 MUMTAZ MOYA [employer] M[employer] Ot 733.90 BONE CARTILAGE DIS NOS 02/28/2018 MUMTAZ MOYA [employer] M[employer] Ot V15.3 HX OF IRRADIATION 02/28/2018 MUMTAZ MOYA [employer] M[employer] Ot V45.71 ACQUIRED ABSENCE OF BREAST AND NIPPLE 02/28/2018 MUMTAZ MOYA [employer] M[employer] Ot V58.67 LONG-TERM (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 OF INSULIN 02/28/2018 MUMTAZ MOYA [employer] M[employer] Ot V58.69 OTH MED,LT,CURRENT USE 02/28/2018 MUMTAZ MOYA [employer] M[employer] Ot V86.0 ESTROGEN RECEPTOR POSITIVE STATUS [ER+] 02/28/2018 MUMTAZ MOYA [employer] M[employer]ER Ot V87.41 PERSONAL HISTORY OF ANTINEOPLASTIC CHEMO 02/28/2018 MUMTAZ MOYA [employer] Ot 174.9 MALIGN NEOPL BREAST NOS 02/28/2018 MUMTAZ MOYA [employer] M[employer] Ot 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 02/28/2018 MUMTAZ MOYA Ot 733.90 BONE CARTILAGE DIS NOS 02/28/2018 MUMTAZ MOYA Ot 793.11 SOLITARY PULMONARY NODULE 02/28/2018 MUMTAZ MOYA Ot V84.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 02/28/2018 ENDER PAZ Ot E10.9 TYPE 1 DIABETES MELLITUS WITHOUT COMPLIC 02/28/2018 ENDER PAZ Ot E66.8 OTHER OBESITY 02/28/2018 ENDER PAZ Ot I10 ESSENTIAL (PRIMARY) HYPERTENSION 02/28/2018 ENDER PAZ Ot R60.9 EDEMA, UNSPECIFIED 02/28/2018 JASPER GREEN, MARK Willoughby Ot M06.9 RHEUMATOID ARTHRITIS, UNSPECIFIED 02/28/2018 MUMTAZ MOYA Ot C50.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 02/28/2018 MUMTAZ MOYA Ot C77.3 SEC AND UNSP MALIG NEOPLASM OF AXILLA AN 02/28/2018 MUMTAZ MOYA Ot M85.80 OTH DISRD OF BONE DENSITY AND STRUCTURE, 02/28/2018 MUMTAZ MOYA Ot Z15.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 02/28/2018 MUMTAZ MOYA Ot Z17.0 ESTROGEN RECEPTOR POSITIVE STATUS [ER+] 02/28/2018 MUMTAZ MOYAP Ot Z79.811 [facility] (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 OF AROMATASE INH 02/28/2018 MUMTAZ MOYA [employer] Ot Z90.11 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 02/28/2018 MUMTAZ MOYAP Ot Z92.3 PERSONAL HISTORY OF IRRADIATION 02/28/2018 MUMTAZ MOYA Ot 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 02/28/2018 MUMTAZ MOYA Ot 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 02/28/2018 MUMTAZ MOYA Ot C77.3 SEC AND UNSP MALIG NEOPLASM OF AXILLA AN 02/28/2018 MUMTAZ MOYA [employer]ER Ot M85.80 OTH DISRD OF BONE DENSITY AND STRUCTURE, 02/28/2018 MUMTAZ MOYA [employer] M[employer]ER Ot Z17.0 ESTROGEN RECEPTOR POSITIVE STATUS [ER+] 02/28/2018 MUMTAZ MOYA [employer]ER Ot 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 02/28/2018 MUMTAZ MOYA [employer] M[employer] Ot Z90.11 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 02/28/2018 MUMTAZ MOYA [employer] M[employer]ER Ot Z92.3 PERSONAL HISTORY OF IRRADIATION 02/28/2018 MUMTAZ MOYAP Ot 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 02/28/2018 MUMTAZ MOYA [employer] M[employer]ER Ot Z85.3 PERSONAL HISTORY OF MALIGNANT NEOPLASM O 02/28/2018 MUMTAZ MOYA [employer] M[employer]ER Ot Z90.11 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 02/28/2018 MUMTAZ MOYAP Ot 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 02/28/2018 MUMTAZ MOYA [employer] M[employer]ER Ot Z84.81 FAMILY HISTORY OF CARRIER OF GENETIC DIS 02/28/2018 KAREEM PENN Petr Ot 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 02/28/2018 KAREEM PENN Petr Ot C77.3 SEC AND UNSP MALIG NEOPLASM OF AXILLA AN 02/28/2018 FILIKAREEM LANGE Petr Ot M85.80 OTH DISRD OF BONE DENSITY AND STRUCTURE, 02/28/2018 KAREEM PENN Petr Ot Z17.0 ESTROGEN RECEPTOR POSITIVE STATUS [ER+] 02/28/2018 KAREEM PENN Petr Ot Z79.811 [facility] (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 OF AROMATASE INH 02/28/2018 KAREEM PENN Petr Ot Z90.11 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 02/28/2018 FILIKAREEM LANGE Petr Ot Z92.3 PERSONAL HISTORY OF IRRADIATION 05/13/2018 KAREEM PENN Petr Ot 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 05/13/2018 KAREEM PENN Petr Ot C77.3 SEC AND UNSP MALIG NEOPLASM OF AXILLA AN 05/13/2018 FILI, GASTONJESSICA Petr Ot M85.80 OTH DISRD OF BONE DENSITY AND STRUCTURE, 05/13/2018 KAREEM PENN Petr Ot Z17.0 ESTROGEN RECEPTOR POSITIVE STATUS [ER+] 05/13/2018 KAREEM PENN Petr Ot Z79.811 [facility] (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 OF AROMATASE INH 05/13/2018 KAREEM PENN Petr Ot Z90.11 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 05/13/2018 KAREEM PENN Petr Ot Z92.3 PERSONAL HISTORY OF IRRADIATION 05/29/2018 YONAS FRASER MD, Ot 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 05/29/2018 YONAS FRASER MD, Ot C77.3 SEC AND UNSP MALIG NEOPLASM OF AXILLA AN 05/29/2018 YONAS FRASER MD, Ot M85.80 OTH DISRD OF BONE DENSITY AND STRUCTURE, 05/29/2018 YONAS FRASER MD, Ot Z17.0 ESTROGEN RECEPTOR POSITIVE STATUS [ER+] 05/29/2018 YONAS FRASER MD, Ot 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 05/29/2018 YONAS FRASER MD, Ot Z90.11 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 05/29/2018 YONAS FRASER MD, Ot Z92.3 PERSONAL HISTORY OF IRRADIATION Procedures Code Description [place] [address] A1C 09/05/2008 70562 A1C 03/06/2009 07309 ROUTINE VENIPUNCTURE 05/29/2009 04583 TSH 05/30/2009 36706 A1C (IN-HOUSE) 06/29/2012 70335 MICRO ALBUMIN-IN HOUSE 06/29/2012 24295 MICROALBUMIN 06/30/2012 Medical O [facility] 07/24/2012 34980 THERAPUTIC INJ SQ/IM 09/21/2012 J0696 ROCEPHIN INJ 09/21/2012 38261 CULTURE WOUND (AEROBIC) 09/24/2012 72171 I/D SIMPLE ABSCESS 09/26/2012 28732 A1C (IN-HOUSE) 10/02/2012 53255 VENOUS DOPPLER UNILATERAL/ LIMITED 11/06/2012 26932 VENOUS DOPPLER UNILATERAL/ LIMITED 11/10/2012 11366 US VENOUS THROMBOSIS IMAGING 11/14/2012 16171 ROUTINE VENIPUNCTURE 11/27/2012 14629 TSH 11/27/2012 36628 ROUTINE VENIPUNCTURE 05/10/2013 79291 A1C (IN-HOUSE) 05/10/2013 79614 TSH 05/11/2013 31384 ROUTINE VENIPUNCTURE 07/10/2013 30409 TB TEST INTRADERMAL 07/10/2013 44440 MICRO ALBUMIN-IN HOUSE 07/10/2013 74216 LIPID PANEL 07/10/2013 38943 LIVER PANEL (LFT) 07/10/2013 86230 TSH 07/10/2013 55407 A1C (IN-HOUSE) 09/03/2013 Cardiolog Madeline Ivan 01/03/2014 41830 A1C (IN-HOUSE) 01/14/2014 45923 MICRO ALBUMIN-IN HOUSE 01/14/2014 61518 XRAY HAND RIGHT 2 VIEWS 02/28/2014 73575 INJ TENDON SHEATH/LIGAMENT 03/14/2014 J1030 DEPO MEDROL 40 MG INJ 03/14/2014 22706 INJ TENDON SHEATH/LIGAMENT 03/21/2014 J1030 DEPO MEDROL 40 MG INJ 03/21/2014 42238 ROUTINE VENIPUNCTURE 08/16/2014 61364 TSH 08/16/2014 45961 MICRO ALBUMIN-IN HOUSE 08/26/2014 49693 A1C (IN-HOUSE) 08/26/2014 81050 MICROALBUMIN 08/26/2014 15200 UA W/ CULTURE IF INDICATED 10/15/2014 07182 CULTURE URINE 10/15/2014 56942 ROUTINE VENIPUNCTURE 10/17/2014 43204 GLUCOSE 10/17/2014 55030 C-PEPTIDE 10/18/2014 Results Test Result Range Complete blood count (CBC) with automated white blood cell (WBC) differential - 02/26/16 08:10 Blood leukocytes automated count (number/volume) 4.3 10*3/uL 4.3-11.0 Blood erythrocytes automated count (number/volume) 3.80 10*6/uL 4.35-5.85 Venous blood hemoglobin measurement (mass/volume) 12.1 g/dL 11.5-16.0 Blood hematocrit (volume fraction) 35 % 35-52 Automated erythrocyte mean corpuscular volume 92 [foz_us] 80-99 Automated erythrocyte mean corpuscular hemoglobin (mass per erythrocyte) 32 pg 25-34 Automated erythrocyte mean corpuscular hemoglobin concentration measurement ( mass/volume) 35 g/dL 32-36 Automated erythrocyte distribution width ratio 12.5 % 10.0-14.5 Automated blood platelet count (count/volume) 237 10*3/uL 130-400 Automated blood platelet mean volume measurement 9.0 [foz_us] 7.4-10.4 Automated blood neutrophils/100 leukocytes 39 % 42-75 Automated blood lymphocytes/100 leukocytes 47 % 12-44 Blood monocytes/100 leukocytes 10 % 0-12 Automated blood eosinophils/100 leukocytes 3 % 0-10 Automated blood basophils/100 leukocytes 1 % 0-10 Blood neutrophils automated count (number/volume) 1.7 10*3 1.8-7.8 Blood lymphocytes automated count (number/volume) 2.0 10*3 1.0-4.0 Blood monocytes automated count (number/volume) 0.4 10*3 0.0-1.0 Automated eosinophil count 0.1 10*3/uL 0.0-0.3 Automated blood basophil count (count/volume) 0.1 10*3/uL 0.0-0.1 Comprehensive metabolic panel - 02/26/16 08:10 Serum or plasma sodium measurement (moles/volume) 132 mmol/L 135-145 Serum or plasma potassium measurement (moles/volume) 3.7 mmol/L 3.6-5.0 Serum or plasma chloride measurement (moles/volume) 99 mmol/L 98-107 Carbon dioxide 23 mmol/L 21-32 Serum or plasma anion gap determination (moles/volume) 10 mmol/L 5-14 Serum or plasma urea nitrogen measurement (mass/volume) 26 mg/dL 7-18 Serum or plasma creatinine measurement (mass/volume) 0.82 mg/dL 0.60-1.30 Serum or plasma urea nitrogen/creatinine mass ratio 32 NRG Serum or plasma creatinine measurement with calculation of estimated glomerular filtration rate > NRG Serum or plasma glucose measurement (mass/volume) 124 mg/dL 70-105 Serum or plasma calcium measurement (mass/volume) 9.2 mg/dL 8.5-10.1 Serum or plasma total bilirubin measurement (mass/volume) 0.3 mg/dL 0.1-1.0 Serum or plasma alkaline phosphatase measurement (enzymatic activity/volume) 63 U/L 40-136 Serum or plasma aspartate aminotransferase measurement (enzymatic activity/ volume) 21 U/L 5-34 Serum or plasma alanine aminotransferase measurement (enzymatic activity/volume ) 23 U/L 0-55 Serum or plasma protein measurement (mass/volume) 6.9 g/dL 6.4-8.2 Serum or plasma albumin measurement (mass/volume) 4.1 g/dL 3.2-4.5 Comp. Metabolic Panel (14) - 05/24/16 08:56 Glucose, Serum 246 mg/dL 65-99 BUN 17 mg/dL 6-24 Creatinine, Serum 0.72 mg/dL 0.57-1.00 eGFR If NonAfricn Am 99 mL/min/1.73 >59 eGFR If Africn Am 114 mL/min/1.73 >59 BUN/Creatinine Ratio 24 9-23 Sodium, Serum 138 mmol/L 136-144 Potassium, Serum 4.4 mmol/L 3.5-5.2 Chloride, Serum 98 mmol/L 97-106 Carbon Dioxide, Total 27 mmol/L 18-29 Calcium, Serum 9.9 mg/dL 8.7-10.2 Protein, Total, Serum 7.3 g/dL 6.0-8.5 Albumin, Serum 4.7 g/dL 3.5-5.5 Globulin, Total 2.6 g/dL 1.5-4.5 A/G Ratio 1.8 1.1-2.5 Bilirubin, Total 0.2 mg/dL 0.0-1.2 Alkaline Phosphatase, S 69 IU/L 39-117 AST (SGOT) 19 IU/L 0-40 ALT (SGPT) 15 IU/L 0-32 Lipid Panel - 05/24/16 08:56 Cholesterol, Total 199 mg/dL 100-199 Triglycerides 49 mg/dL 0-149 HDL Cholesterol 81 mg/dL >39 VLDL Cholesterol Lopez 10 mg/dL 5-40 LDL Cholesterol Calc 108 mg/dL 0-99 TSH - 05/24/16 08:56 TSH 4.100 uIU/mL 0.450-4.500 TSH - 09/16/16 08:15 TSH 11.770 uIU/mL 0.450-4.500 Complete blood count (CBC) with automated white blood cell (WBC) differential - 10/21/16 08:20 Blood leukocytes automated count (number/volume) 15.5 10*3/uL 4.3-11.0 Blood erythrocytes automated count (number/volume) 4.53 10*6/uL 4.35-5.85 Venous blood hemoglobin measurement (mass/volume) 14.4 g/dL 11.5-16.0 Blood hematocrit (volume fraction) 44 % 35-52 Automated erythrocyte mean corpuscular volume 97 [[facility]_us] 80-99 Automated erythrocyte mean corpuscular hemoglobin (mass per erythrocyte) 32 pg 25-34 Automated erythrocyte mean corpuscular hemoglobin concentration measurement ( mass/volume) 33 g/dL 32-36 Automated erythrocyte distribution width ratio 12.4 % 10.0-14.5 Automated blood platelet count (count/volume) 249 10*3/uL 130-400 Automated blood platelet mean volume measurement 9.8 [[facility]_us] 7.4-10.4 Automated blood neutrophils/100 leukocytes 85 % 42-75 Automated blood lymphocytes/100 leukocytes 6 % 12-44 Blood monocytes/100 leukocytes 9 % 0-12 Automated blood eosinophils/100 leukocytes 0 % 0-10 Automated blood basophils/100 leukocytes 0 % 0-10 Blood neutrophils automated count (number/volume) 13.2 10*3 1.8-7.8 Blood lymphocytes automated count (number/volume) 0.9 10*3 1.0-4.0 Blood monocytes automated count (number/volume) 1.5 10*3 0.0-1.0 Automated eosinophil count 0.0 10*3/uL 0.0-0.3 Automated blood basophil count (count/volume) 0.0 10*3/uL 0.0-0.1 Blood manual differential performed detection - 10/21/16 08:20 Blood monocytes/100 leukocytes 10 % [facility] Manual blood segmented neutrophils/100 leukocytes 76 % NR Blood band neutrophils/100 leukocytes 7 % NR Manual blood lymphocytes/100 leukocytes 7 % NR Manual eosinophils/100 leukocytes in nose 0 % NR Manual blood basophils/100 leukocytes 0 % [facility] Blood melissa cells detection by light microscopy SLIGHT [facility] Influenza virus A and B antigen detection - 10/21/16 08:20 FLU RESULT NEGATIVE FOR INFLUENZA A AND B ANTIGENS BY IA [facility] Comprehensive metabolic panel - 10/21/16 08:20 Serum or plasma sodium measurement (moles/volume) 132 mmol/L 135-145 Serum or plasma potassium measurement (moles/volume) 5.7 mmol/L 3.6-5.0 Serum or plasma chloride measurement (moles/volume) 94 mmol/L 98-107 Carbon dioxide 6 mmol/L 21-32 Serum or plasma anion gap determination (moles/volume) 32 mmol/L 5-14 Serum or plasma urea nitrogen measurement (mass/volume) 41 mg/dL 7-18 Serum or plasma creatinine measurement (mass/volume) 2.03 mg/dL 0.60-1.30 Serum or plasma urea nitrogen/creatinine mass ratio 20 NRG Serum or plasma creatinine measurement with calculation of estimated glomerular filtration rate 26 NRG Serum or plasma glucose measurement (mass/volume) 665 mg/dL 70-105 Serum or plasma calcium measurement (mass/volume) 10.2 mg/dL 8.5-10.1 Serum or plasma total bilirubin measurement (mass/volume) 0.7 mg/dL 0.1-1.0 Serum or plasma alkaline phosphatase measurement (enzymatic activity/volume) 80 U/L 40-136 Serum or plasma aspartate aminotransferase measurement (enzymatic activity/ volume) 35 U/L 5-34 Serum or plasma alanine aminotransferase measurement (enzymatic activity/volume ) 31 U/L 0-55 Serum or plasma protein measurement (mass/volume) 8.0 g/dL 6.4-8.2 Serum or plasma albumin measurement (mass/volume) 4.6 g/dL 3.2-4.5 Serum or plasma phosphate measurement (mass/volume) - 10/21/16 08:20 Serum or plasma phosphate measurement (mass/volume) 8.1 mg/dL 2.3-4.7 Magnesium - 10/21/16 08:20 Magnesium 2.4 mg/dL 1.8-2.4 Serum or plasma C reactive protein measurement (mass/volume) - 10/21/16 08:20 Serum or plasma C reactive protein measurement (mass/volume) 1.13 mg /dL 0.00-0.50 Capillary blood glucose measurement by glucometer (mass/volume) - 10/21/16 08: 27 Capillary blood glucose measurement by glucometer (mass/volume) 546 mg/dL 70-110 Arterial blood gas measurement - 10/21/16 10:00 Blood pCO2 19 mm[Hg] 35-45 Blood pO2 123 mm[Hg] 79-93 Arterial blood bicarbonate measurement (moles/volume) 5 mmol/L 23-27 Arterial blood base excess by calculation -23.6 mmol/L - 2.5-2.5 Arterial blood oxygen saturation measurement 98 % 94-100 * Inhaled oxygen flow rate RA NRG Arterial blood pH measurement with patient temperature correction 7.05 7.37-7.43 Arterial blood carbon dioxide, total measurement (moles/volume) 5.5 mmol/L 21.0-31.0 Body site L BRACH NRG Assessment of wrist artery patency prior to arterial puncture YES- POS NRG Setting of ventilation mode NO NRG Measurement of body temperature 98.5 NRG Capillary blood glucose measurement by glucometer (mass/volume) - 10/21/16 10: 46 Capillary blood glucose measurement by glucometer (mass/volume) 538 mg/dL 70-110 Capillary blood glucose measurement by glucometer (mass/volume) - 10/21/16 12: 28 Capillary blood glucose measurement by glucometer (mass/volume) 512 mg/dL 70-110 Whole blood basic metabolic panel - 10/21/16 12:35 Serum or plasma sodium measurement (moles/volume) 135 mmol/L 135-145 Serum or plasma potassium measurement (moles/volume) 4.6 mmol/L 3.6-5.0 Serum or plasma chloride measurement (moles/volume) 103 mmol/L 98-107 Carbon dioxide 9 mmol/L 21-32 Serum or plasma anion gap determination (moles/volume) 23 mmol/L 5-14 Serum or plasma urea nitrogen measurement (mass/volume) 40 mg/dL 7-18 Serum or plasma creatinine measurement (mass/volume) 1.62 mg/dL 0.60-1.30 Serum or plasma urea nitrogen/creatinine mass ratio 25 NRG Serum or plasma creatinine measurement with calculation of estimated glomerular filtration rate 34 NRG Serum or plasma glucose measurement (mass/volume) 538 mg/dL 70-105 Serum or plasma calcium measurement (mass/volume) 8.3 mg/dL 8.5-10.1 Hemoglobin A1c - 10/21/16 12:35 Hemoglobin A1c 8.8 % 4.5-6.2 Capillary blood glucose measurement by glucometer (mass/volume) - 10/21/16 14: 01 Capillary blood glucose measurement by glucometer (mass/volume) 467 mg/dL 70-110 Whole blood basic metabolic panel - 10/21/16 14:50 Serum or plasma sodium measurement (moles/volume) 136 mmol/L 135-145 Serum or plasma potassium measurement (moles/volume) 4.5 mmol/L 3.6-5.0 Serum or plasma chloride measurement (moles/volume) 102 mmol/L 98-107 Carbon dioxide 9 mmol/L 21-32 Serum or plasma anion gap determination (moles/volume) 25 mmol/L 5-14 Serum or plasma urea nitrogen measurement (mass/volume) 42 mg/dL 7-18 Serum or plasma creatinine measurement (mass/volume) 1.71 mg/dL 0.60-1.30 Serum or plasma urea nitrogen/creatinine mass ratio 25 NRG Serum or plasma creatinine measurement with calculation of estimated glomerular filtration rate 32 NRG Serum or plasma glucose measurement (mass/volume) 451 mg/dL 70-105 Serum or plasma calcium measurement (mass/volume) 9.1 mg/dL 8.5-10.1 Capillary blood glucose measurement by glucometer (mass/volume) - 10/21/16 15: 05 Capillary blood glucose measurement by glucometer (mass/volume) 392 mg/dL 70-110 Complete urinalysis with reflex to culture - 10/21/16 15:17 Urine color determination YELLOW NRG Urine clarity determination CLEAR NRG Urine pH measurement by test strip 5 5-9 Specific gravity of urine by test strip 1.020 1.016- 1.022 Urine protein assay by test strip, semi-quantitative NEGATIVE NEGATIVE Urine glucose detection by automated test strip 4+ NEGATIVE Erythrocytes detection in urine sediment by light microscopy 2+ NEGATIVE Urine ketones detection by automated test strip 4+ NEGATIVE Urine nitrite detection by test strip NEGATIVE NEGATIVE Urine total bilirubin detection by test strip NEGATIVE NEGATIVE Urine urobilinogen measurement by automated test strip (mass/volume) NORMAL NORMAL Urine leukocyte esterase detection by dipstick NEGATIVE NEGATIVE Automated urine sediment erythrocyte count by microscopy (number/high power field) [HPF] NRG Automated urine sediment leukocyte count by microscopy (number/high power field ) [HPF] NRG Bacteria detection in urine sediment by light microscopy TRACE NRG Squamous epithelial cells detection in urine sediment by light microscopy 0-2 NRG Crystals detection in urine sediment by light microscopy NONE NRG Casts detection in urine sediment by light microscopy NONE NRG Mucus detection in urine sediment by light microscopy SMALL NRG Complete urinalysis with reflex to culture NO NRG Capillary blood glucose measurement by glucometer (mass/volume) - 10/21/16 16: 21 Capillary blood glucose measurement by glucometer (mass/volume) 343 mg/dL 70-110 Capillary blood glucose measurement by glucometer (mass/volume) - 10/21/16 17: 32 Capillary blood glucose measurement by glucometer (mass/volume) 291 mg/dL 70-110 Whole blood basic metabolic panel - 10/21/16 18:25 Serum or plasma sodium measurement (moles/volume) 134 mmol/L 135-145 Serum or plasma potassium measurement (moles/volume) 5.3 mmol/L 3.6-5.0 Serum or plasma chloride measurement (moles/volume) 111 mmol/L 98-107 Carbon dioxide 11 mmol/L 21-32 Serum or plasma anion gap determination (moles/volume) 12 mmol/L 5-14 Serum or plasma urea nitrogen measurement (mass/volume) 35 mg/dL 7-18 Serum or plasma creatinine measurement (mass/volume) 1.27 mg/dL 0.60-1.30 Serum or plasma urea nitrogen/creatinine mass ratio 28 NRG Serum or plasma creatinine measurement with calculation of estimated glomerular filtration rate 45 NRG Serum or plasma glucose measurement (mass/volume) 263 mg/dL 70-105 Serum or plasma calcium measurement (mass/volume) 9.0 mg/dL 8.5-10.1 Capillary blood glucose measurement by glucometer (mass/volume) - 10/21/16 18: 40 Capillary blood glucose measurement by glucometer (mass/volume) 247 mg/dL 70-110 Capillary blood glucose measurement by glucometer (mass/volume) - 10/21/16 20: 51 Capillary blood glucose measurement by glucometer (mass/volume) 224 mg/dL 70-110 Capillary blood glucose measurement by glucometer (mass/volume) - 10/21/16 21: 52 Capillary blood glucose measurement by glucometer (mass/volume) 189 mg/dL 70-110 Capillary blood glucose measurement by glucometer (mass/volume) - 10/21/16 22: 46 Capillary blood glucose measurement by glucometer (mass/volume) 153 mg/dL 70-110 Capillary blood glucose measurement by glucometer (mass/volume) - 10/21/16 23: 56 Capillary blood glucose measurement by glucometer (mass/volume) 121 mg/dL 70-110 Capillary blood glucose measurement by glucometer (mass/volume) - 10/22/16 00: 42 Capillary blood glucose measurement by glucometer (mass/volume) 106 mg/dL 70-110 Capillary blood glucose measurement by glucometer (mass/volume) - 10/22/16 01: 38 Capillary blood glucose measurement by glucometer (mass/volume) 126 mg/dL 70-110 Capillary blood glucose measurement by glucometer (mass/volume) - 10/22/16 02: 11 Capillary blood glucose measurement by glucometer (mass/volume) 139 mg/dL 70-110 Whole blood basic metabolic panel - 10/22/16 02:16 Serum or plasma sodium measurement (moles/volume) 134 mmol/L 135-145 Serum or plasma potassium measurement (moles/volume) 4.8 mmol/L 3.6-5.0 Serum or plasma chloride measurement (moles/volume) 105 mmol/L 98-107 Carbon dioxide 19 mmol/L 21-32 Serum or plasma anion gap determination (moles/volume) 10 mmol/L 5-14 Serum or plasma urea nitrogen measurement (mass/volume) 27 mg/dL 7-18 Serum or plasma creatinine measurement (mass/volume) 0.96 mg/dL 0.60-1.30 Serum or plasma urea nitrogen/creatinine mass ratio 28 NRG Serum or plasma creatinine measurement with calculation of estimated glomerular filtration rate > NRG Serum or plasma glucose measurement (mass/volume) 173 mg/dL 70-105 Serum or plasma calcium measurement (mass/volume) 8.8 mg/dL 8.5-10.1 Capillary blood glucose measurement by glucometer (mass/volume) - 10/22/16 02: 53 Capillary blood glucose measurement by glucometer (mass/volume) 197 mg/dL 70-110 Capillary blood glucose measurement by glucometer (mass/volume) - 10/22/16 03: 37 Capillary blood glucose measurement by glucometer (mass/volume) 276 mg/dL 70-110 Complete blood count (CBC) with automated white blood cell (WBC) differential - 10/22/16 04:45 Blood leukocytes automated count (number/volume) 10.5 10*3/uL 4.3-11.0 Blood erythrocytes automated count (number/volume) 3.37 10*6/uL 4.35-5.85 Venous blood hemoglobin measurement (mass/volume) 10.6 g/dL 11.5-16.0 Blood hematocrit (volume fraction) 31 % 35-52 Automated erythrocyte mean corpuscular volume 93 [foz_us] 80-99 Automated erythrocyte mean corpuscular hemoglobin (mass per erythrocyte) 31 pg 25-34 Automated erythrocyte mean corpuscular hemoglobin concentration measurement ( mass/volume) 34 g/dL 32-36 Automated erythrocyte distribution width ratio 12.1 % 10.0-14.5 Automated blood platelet count (count/volume) 203 10*3/uL 130-400 Automated blood platelet mean volume measurement 8.9 [foz_us] 7.4-10.4 Automated blood neutrophils/100 leukocytes 76 % 42-75 Automated blood lymphocytes/100 leukocytes 13 % 12-44 Blood monocytes/100 leukocytes 11 % 0-12 Automated blood eosinophils/100 leukocytes 0 % 0-10 Automated blood basophils/100 leukocytes 0 % 0-10 Blood neutrophils automated count (number/volume) 8.0 10*3 1.8-7.8 Blood lymphocytes automated count (number/volume) 1.3 10*3 1.0-4.0 Blood monocytes automated count (number/volume) 1.1 10*3 0.0-1.0 Automated eosinophil count 0.0 10*3/uL 0.0-0.3 Automated blood basophil count (count/volume) 0.0 10*3/uL 0.0-0.1 Comprehensive metabolic panel - 10/22/16 04:45 Serum or plasma sodium measurement (moles/volume) 132 mmol/L 135-145 Serum or plasma potassium measurement (moles/volume) 4.4 mmol/L 3.6-5.0 Serum or plasma chloride measurement (moles/volume) 106 mmol/L 98-107 Carbon dioxide 18 mmol/L 21-32 Serum or plasma anion gap determination (moles/volume) 8 mmol/L 5-14 Serum or plasma urea nitrogen measurement (mass/volume) 24 mg/dL 7-18 Serum or plasma creatinine measurement (mass/volume) 0.90 mg/dL 0.60-1.30 Serum or plasma urea nitrogen/creatinine mass ratio 27 NRG Serum or plasma creatinine measurement with calculation of estimated glomerular filtration rate > NRG Serum or plasma glucose measurement (mass/volume) 266 mg/dL 70-105 Serum or plasma calcium measurement (mass/volume) 8.6 mg/dL 8.5-10.1 Serum or plasma total bilirubin measurement (mass/volume) 0.7 mg/dL 0.1-1.0 Serum or plasma alkaline phosphatase measurement (enzymatic activity/volume) 48 U/L 40-136 Serum or plasma aspartate aminotransferase measurement (enzymatic activity/ volume) 27 U/L 5-34 Serum or plasma alanine aminotransferase measurement (enzymatic activity/volume ) 25 U/L 0-55 Serum or plasma protein measurement (mass/volume) 5.3 g/dL 6.4-8.2 Serum or plasma albumin measurement (mass/volume) 3.2 g/dL 3.2-4.5 Capillary blood glucose measurement by glucometer (mass/volume) - 10/22/16 04: 47 Capillary blood glucose measurement by glucometer (mass/volume) 265 mg/dL 70-110 Capillary blood glucose measurement by glucometer (mass/volume) - 10/22/16 05: 40 Capillary blood glucose measurement by glucometer (mass/volume) 236 mg/dL 70-110 Capillary blood glucose measurement by glucometer (mass/volume) - 10/22/16 06: 42 Capillary blood glucose measurement by glucometer (mass/volume) 192 mg/dL 70-110 Capillary blood glucose measurement by glucometer (mass/volume) - 10/22/16 08: 41 Capillary blood glucose measurement by glucometer (mass/volume) 154 mg/dL 70-110 Capillary blood glucose measurement by glucometer (mass/volume) - 10/22/16 09: 54 Capillary blood glucose measurement by glucometer (mass/volume) 218 mg/dL 70-110 Capillary blood glucose measurement by glucometer (mass/volume) - 10/22/16 12: 47 Capillary blood glucose measurement by glucometer (mass/volume) 278 mg/dL 70-110 Capillary blood glucose measurement by glucometer (mass/volume) - 10/22/16 16: 14 Capillary blood glucose measurement by glucometer (mass/volume) 238 mg/dL 70-110 Capillary blood glucose measurement by glucometer (mass/volume) - 10/22/16 17: 45 Capillary blood glucose measurement by glucometer (mass/volume) 221 mg/dL 70-110 Capillary blood glucose measurement by glucometer (mass/volume) - 10/22/16 22: 13 Capillary blood glucose measurement by glucometer (mass/volume) 221 mg/dL 70-110 Complete blood count (CBC) with automated white blood cell (WBC) differential - 10/23/16 03:36 Blood leukocytes automated count (number/volume) 6.2 10*3/uL 4.3-11.0 Blood erythrocytes automated count (number/volume) 3.74 10*6/uL 4.35-5.85 Venous blood hemoglobin measurement (mass/volume) 11.9 g/dL 11.5-16.0 Blood hematocrit (volume fraction) 35 % 35-52 Automated erythrocyte mean corpuscular volume 94 [foz_us] 80-99 Automated erythrocyte mean corpuscular hemoglobin (mass per erythrocyte) 32 pg 25-34 Automated erythrocyte mean corpuscular hemoglobin concentration measurement ( mass/volume) 34 g/dL 32-36 Automated erythrocyte distribution width ratio 12.9 % 10.0-14.5 Automated blood platelet count (count/volume) 200 10*3/uL 130-400 Automated blood platelet mean volume measurement 9.2 [foz_us] 7.4-10.4 Automated blood neutrophils/100 leukocytes 65 % 42-75 Automated blood lymphocytes/100 leukocytes 25 % 12-44 Blood monocytes/100 leukocytes 8 % 0-12 Automated blood eosinophils/100 leukocytes 1 % 0-10 Automated blood basophils/100 leukocytes 1 % 0-10 Blood neutrophils automated count (number/volume) 4.0 10*3 1.8-7.8 Blood lymphocytes automated count (number/volume) 1.6 10*3 1.0-4.0 Blood monocytes automated count (number/volume) 0.5 10*3 0.0-1.0 Automated eosinophil count 0.0 10*3/uL 0.0-0.3 Automated blood basophil count (count/volume) 0.0 10*3/uL 0.0-0.1 Comprehensive metabolic panel - 10/23/16 03:36 Serum or plasma sodium measurement (moles/volume) 140 mmol/L 135-145 Serum or plasma potassium measurement (moles/volume) 3.8 mmol/L 3.6-5.0 Serum or plasma chloride measurement (moles/volume) 104 mmol/L 98-107 Carbon dioxide 27 mmol/L 21-32 Serum or plasma anion gap determination (moles/volume) 9 mmol/L 5-14 Serum or plasma urea nitrogen measurement (mass/volume) 12 mg/dL 7-18 Serum or plasma creatinine measurement (mass/volume) 0.73 mg/dL 0.60-1.30 Serum or plasma urea nitrogen/creatinine mass ratio 16 NRG Serum or plasma creatinine measurement with calculation of estimated glomerular filtration rate > NRG Serum or plasma glucose measurement (mass/volume) 109 mg/dL 70-105 Serum or plasma calcium measurement (mass/volume) 9.6 mg/dL 8.5-10.1 Serum or plasma total bilirubin measurement (mass/volume) 0.7 mg/dL 0.1-1.0 Serum or plasma alkaline phosphatase measurement (enzymatic activity/volume) 62 U/L 40-136 Serum or plasma aspartate aminotransferase measurement (enzymatic activity/ volume) 20 U/L 5-34 Serum or plasma alanine aminotransferase measurement (enzymatic activity/volume ) 25 U/L 0-55 Serum or plasma protein measurement (mass/volume) 6.5 g/dL 6.4-8.2 Serum or plasma albumin measurement (mass/volume) 3.8 g/dL 3.2-4.5 Capillary blood glucose measurement by glucometer (mass/volume) - 10/23/16 06: 50 Capillary blood glucose measurement by glucometer (mass/volume) 117 mg/dL 70-110 Capillary blood glucose measurement by glucometer (mass/volume) - 10/23/16 12: 11 Capillary blood glucose measurement by glucometer (mass/volume) 230 mg/dL 70-110 TSH - 11/23/16 08:29 TSH 0.198 uIU/mL 0.450-4.500 TSH - 12/27/16 08:37 TSH 0.761 uIU/mL 0.450-4.500 CBC - 05/04/17 11:34 WHITE BLOOD CELL COUNT 3.8 Thousand/uL 3.8-10.8 RED BLOOD CELL COUNT 4.39 Million/uL 3.80-5.10 HEMOGLOBIN 13.9 g/dL 11.7-15.5 HEMATOCRIT 41.3 % 35.0-45.0 MCV 94.1 fL 80.0-100.0 MCH 31.7 pg 27.0-33.0 MCHC 33.7 g/dL 32.0-36.0 RDW 12.1 % 11.0-15.0 PLATELET COUNT 268 Thousand/uL 140-400 MPV 9.7 fL 7.5-12.5 ABSOLUTE NEUTROPHILS 2018 cells/uL 0494-4717 ABSOLUTE LYMPHOCYTES 1269 cells/uL 850-3900 ABSOLUTE MONOCYTES 395 cells/uL 200-950 ABSOLUTE EOSINOPHILS 68 cells/uL 15-500 ABSOLUTE BASOPHILS 49 cells/uL 0-200 NEUTROPHILS 53.1 % NRG LYMPHOCYTES 33.4 % NRG MONOCYTES 10.4 % NRG EOSINOPHILS 1.8 % NRG BASOPHILS 1.3 % NRG Encounters ACCT No. Visit Date/Time Discharge Status Pt. Type Provider Facility Loc./Unit Complaint [id number] 10/17/2014 10:59:00 10/17/2014 23:59:59 CLS Outpatient EUGENIO BELTRAN APRN S [id number] 10/15/2014 08:46:00 10/15/2014 23:59:59 CLS Outpatient MARCOS WESLEY APRN [id number] 08/26/2014 15:53:00 08/26/2014 23:59:59 CLS Outpatient EUGENIO BELTRAN APRN S [id number] 06/13/2014 14:25:00 06/13/2014 23:59:59 CLS Outpatient FRANCISCO DELCID APRN [id number] 03/21/2014 12:14:00 03/21/2014 23:59:59 CLS Outpatient FRANCISCO DELCID APRN Geri [id number] 03/14/2014 14:38:00 03/14/2014 23:59:59 CLS Outpatient FRANCISCO DELCID APRN Geri [id number] 02/27/2014 13:52:00 02/27/2014 23:59:59 CLS Outpatient JACOB DAWSON DO [id number] 01/14/2014 09:11:00 01/14/2014 23:59:59 CLS Outpatient PATRICE BELTRAN APRNA S [id number] 09/03/2013 16:15:00 09/03/2013 23:59:59 CLS Outpatient PATRICE BELTRAN APRNA S [id number] 09/03/2013 16:15:00 09/03/2013 23:59:59 CLS Outpatient EUGENIO BELTRAN APRN S [id number] 07/10/2013 07:58:00 07/10/2013 23:59:59 CLS Outpatient PATRICE BELTRAN APRNA S [id number] 05/10/2013 16:31:00 05/10/2013 23:59:59 CLS Outpatient EUNICE DOJACOB [id number] 05/10/2013 16:31:00 05/10/2013 23:59:59 CLS Outpatient PATRICE BELTRAN APRNA S [id number] 04/16/2013 09:56:00 04/16/2013 23:59:59 CLS Outpatient JACOB DAWSON DO [id number] 01/02/2013 11:25:00 01/02/2013 23:59:59 CLS Outpatient PATRICE BELTRAN APRNA S [id number] 10/02/2012 09:55:00 10/02/2012 23:59:59 CLS Outpatient [id number] 09/25/2012 09:58:00 09/25/2012 23:59:59 CLS Outpatient EUGENIO BELTRAN APRN [id number] 09/22/2012 11:17:00 09/22/2012 23:59:59 CLS Outpatient [id number] 06/29/2012 12:32:00 06/29/2012 23:59:59 CLS Outpatient EUGENIO BELTRAN APRN [id number] 06/29/2012 12:32:00 06/29/2012 23:59:59 CLS Outpatient [id number] 11/27/2012 15:16:00 Document Registration [id number] 11/09/2012 18:37:00 Document Registration [id number] 11/06/2012 15:40:00 Document Registration [id number] 10/02/2012 09:55:00 Document Registration [id number] 04/18/2018 15:03:00 04/18/2018 23:59:59 CLS Outpatient KAREEM PENN [facility] ONC [id number] 09/28/2017 15:28:00 12/27/2017 00:01:00 DIS Outpatient YONAS FRASER MD [facility] ONC [id number] 03/30/2017 12:48:00 06/28/2017 00:01:00 DIS Outpatient KAREEM PENN [facility] ONC [id number] 03/10/2017 08:49:00 03/10/2017 23:59:59 CLS Outpatient MUMTAZ MOYA [facility] RAD BREAST CA [id number] 09/20/2016 15:02:00 12/19/2016 00:01:00 DIS Outpatient KAREEM PENN [facility] ONC [id number] 10/21/2016 10:45:00 10/23/2016 13:27:00 DIS Inpatient ABIMAEL MEEK MD [facility] ICU DKA,ACUTE RENAL FAILURE [id number] 03/23/2016 14:08:00 06/21/2016 00:01:00 DIS Outpatient KAREEM PENN [facility] ONC [id number] 12/04/2015 14:13:00 03/03/2016 00:01:00 DIS Outpatient KAREEM PENN [facility] ONC [id number] 02/26/2016 07:27:00 02/26/2016 23:59:59 CLS Outpatient MUMTAZ MOYA S [employer] [facility] RAD BREAST,CA, OSTEOPENIA [id number] 11/06/2015 14:57:00 11/06/2015 23:59:59 CLS Outpatient MUMTAZ MOYA S [employer] [facility] ONC [id number] 09/22/2015 14:20:00 09/22/2015 23:59:59 CLS Outpatient MUMTAZ MOYA S [employer] [facility] RAD BREAST CA [id number] 08/12/2015 15:00:00 08/12/2015 23:59:59 CLS Outpatient MUMTAZ MOYA S [employer] [facility] ONC [id number] 05/12/2015 14:24:00 08/10/2015 00:01:00 DIS Outpatient KAREEM PENN [facility] ONC [id number] 06/05/2015 15:56:00 06/05/2015 23:59:59 CLS Outpatient MARK HUTCHINSON MD [facility] LAB RHEUMATOID ARTHRITIS [id number] 04/22/2015 07:40:00 04/22/2015 23:59:59 CLS Outpatient ENDER PAZ [facility] CARD HTN,EDEMA, OBESITY [id number] 03/06/2015 11:20:00 03/06/2015 23:59:59 CLS Outpatient MUMTAZ MOYA S [employer] [facility] RAD BREAST CANCER PULMONARY NODULE SURGICAL MENOPAUSE [id number] 02/18/2015 15:11:00 02/18/2015 23:59:59 CLS Outpatient MOYAMUMTAZ Tenorio S [employer] [facility] ONC [id number] 11/26/2014 07:46:00 11/26/2014 23:59:59 CLS Outpatient MUMTAZ MOYA S [employer] [facility] RAD BREAST CANCER BRCA1 + PULMONARY NODULE [id number] 11/08/2014 13:26:00 11/08/2014 23:59:59 CLS Outpatient MOYAMUMTAZ Tenorio S [employer] [facility] ONC [id number] 07/25/2014 08:54:00 07/25/2014 23:59:59 CLS Outpatient KAREEM PENN [facility] ONC [id number] 05/10/2014 07:48:00 05/10/2014 23:59:59 CLS Outpatient MOYA, HILAH S [employer] [facility] RAD BREAST CA [id number] 04/24/2014 14:29:00 04/24/2014 23:59:59 CLS Outpatient MOYA, HILAH S [employer] [facility] ONC [id number] 04/05/2014 08:12:00 04/05/2014 23:59:59 CLS Outpatient ADRI GREEN, MADELINE Jackson [facility] CARD BREAST CA,PERH. EDEMA, ESST. HTN [id number] 12/04/2013 10:57:00 12/04/2013 23:59:59 CLS Outpatient MUMTAZ MOYA S [employer] [facility] RAD PULM NODULE,BREAST CA [id number] 11/05/2013 14:04:00 11/05/2013 23:59:59 CLS Outpatient MUMTAZ MOYA S [employer] [facility] RAD BREAST CA [id number] 11/01/2013 10:59:00 11/01/2013 23:59:59 CLS Outpatient MOYA, HILAH S [employer] [facility] ONC [id number] 08/10/2013 10:42:00 08/10/2013 23:59:59 CLS Outpatient MOYA, HILAH S [employer] [facility] RAD BREAST CA [id number] 07/27/2013 14:03:00 07/31/2013 00:01:00 DIS Outpatient KAREEM PENN [facility] ONC [id number] 07/27/2013 10:32:00 07/27/2013 23:59:59 CLS Outpatient MOYA, HILAH S [employer] [facility] ONC [id number] 07/23/2013 10:00:00 07/23/2013 23:59:59 CLS Outpatient MUMTAZ MOYA [employer] [facility] CARD CARDIO TOXIC CHEMO, BREAST CA [id number] 06/26/2013 09:06:00 06/26/2013 23:59:59 CLS Outpatient MUMTAZ MOYA S [employer] [facility] ONC [id number] 05/02/2013 08:55:00 05/02/2013 23:59:59 CLS Outpatient MUMTAZ MOYA S [employer] [facility] ONC [id number] 03/14/2013 08:57:00 04/25/2013 00:01:00 DIS Outpatient KAREEM PENN [facility] ONC [id number] 04/05/2013 15:06:00 04/05/2013 23:59:59 CLS Outpatient MUMTAZ MOYA S [employer] [facility] ONC [id number] 03/08/2013 14:57:00 03/08/2013 23:59:59 CLS Outpatient MUMTAZ MOYA S [employer] [facility] ONC [id number] 02/23/2013 07:45:00 02/23/2013 23:59:59 CLS Outpatient MUMTAZ MOYA S [employer] [facility] RAD BREAST CA,CARDIO TOXIC CHEMO [id number] 02/08/2013 10:01:00 02/08/2013 23:59:59 CLS Outpatient MUMTAZ MOYA S [employer] [facility] ONC [id number] 01/12/2013 09:43:00 01/24/2013 00:01:00 DIS Outpatient KAREEM PENN [facility] ONC [id number] 01/05/2013 09:45:00 01/18/2013 09:17:00 DIS Outpatient MUMTAZ MOYA [employer] [facility] REHAB BREAST CANCER, LYMPHEDEMA R ARM [id number] 12/14/2012 10:52:00 12/14/2012 23:59:59 CLS Outpatient MUMTAZ MOYA S [employer] [facility] ONC [id number] 11/21/2012 09:06:00 11/21/2012 23:59:59 CLS Outpatient MUMTAZ MOYA [employer] [facility] CARD CARDIOTOXIC CHEMO, BILAT LE EDEMA [id number] 11/16/2012 13:19:00 11/16/2012 23:59:59 CLS Outpatient MUMTAZ MOYA [employer] [facility] ONC [id number] 11/10/2012 09:15:00 11/10/2012 23:59:59 CLS Outpatient EUGENIO BELTRANP [facility] RAD SWELLING REDNESS [id number] 11/07/2012 13:38:00 11/07/2012 23:59:59 CLS Outpatient KEY JOSE [employer] [facility] RAD SWELLING,REDNESS [id number] 10/27/2012 08:05:00 10/27/2012 23:59:59 CLS Outpatient KAREEM PENN [facility] RAD [id number] 10/19/2012 10:17:00 10/19/2012 15:53:00 DIS Outpatient KAREEM PENN [facility] ONC [id number] 06/01/2018 14:11:00 ACT Emergency JULIA GREEN, ESDRAS Jackson [facility] ER NAUSEA;RASH [id number] 06/01/2018 08:15:00 PEN Preadmit MUMTAZ MOYA [employer] [facility] RAD BREAST CANCER [id number] 08/01/2013 00:00:00 Document Registration [id number] 08/23/2012 12:04:00 Document Registration [id number] 08/16/2012 14:15:00 Document Registration [id number] 08/16/2012 13:44:00 Document Registration [id number] 08/09/2012 13:09:00 Document Registration [id number] 07/18/2012 12:51:00 Document Registration [id number] 07/11/2012 13:02:00 Document Registration [id number] 07/03/2012 09:17:00 Document Registration [id number] 06/16/2012 12:28:00 Document Registration [id number] 05/01/2012 09:14:00 Document Registration [id number] 01/29/2011 20:59:00 Document Registration [id number] 08/23/2010 12:43:00 Document Registration [id number] 05/25/2016 08:35:00 Document Registration [id number] 12/28/2016 08:06:00 Document Registration [id number] 03/06/2015 11:21:01 ACT Document Registration [id number] 09/17/2016 09:12:00 Document Registration [id number] 11/24/2016 08:07:00 Document Registration [id number] 08/17/2017 14:00:00 08/17/2017 23:59:59 [facility] Outpatient EUGENIO BELTRAN APRN [facility] [id number] 05/04/2017 11:00:00 Document Registration
[2018-06-01] MEDS ORDERED: TRAM50TA2 PO (17:06)
[2018-06-01] MEDS ORDERED: HYDR25CA PO (17:06)
[2018-06-01 17:15] VITALS: BP 130/127
== END 2018-06-01 17:15 | disposition home or self-care (01) ==
LOC: EDUNIT# 14:10 → ER 14:11
DX: L53.9 Erythematous condition, unspecified (principal); E11.9 Type 2 diabetes mellitus without complications; E03.9 Hypothyroidism, unspecified; Z88.0 Allergy status to penicillin; Z79.4 Long term (current) use of insulin; Z90.11 Acquired absence of right breast and nipple; Z85.3 Personal history of malignant neoplasm of breast; Z92.21 Personal history of antineoplastic chemotherapy; Z90.710 Acquired absence of both cervix and uterus; Z98.890 Other specified postprocedural states; Z90.49 Acquired absence of other specified parts of digestive tract
CPT/HCPCS: 36415; 71046; 80053; 83605; 85025; 86141; 87040

== ENCOUNTER → 2018-07-13 | Outpatient (CLI) | payer OTHER, MEDICAID ==
[~2018-07-13] MED LIST changes: +HYDR25CA PO; +TRAM50TA2 PO
--- NOTE | 2018-07-13 14:43 | Diagnostic Imaging Report ---
INDICATION: Screening for osteoporosis. COMPARISON: 02/26/2016 FINDINGS: The bone mineral density of the hips and spine was measured. The T score for the spine is -0.9. On the prior exam, the T score was -1.6. The T score for the left hip is -0.8, for the right hip -1.2. The respective T-scores on the prior exam are -0.8 and -1.0. It should be noted that the T score for the left femoral neck is -1.9 and for the right femoral neck -2.1. These values do indicate osteopenia. IMPRESSION: 1. There are mixed results. There has been an increase in the bone mineral density of the spine and the T score is now within normal limits. 2. There has been a slight decrease in the bone mineral density of the right hip and there is now mild osteopenia. 3. The total T score for the left hip is unchanged and within normal limits. 4. The T scores for the femoral necks do indicate osteopenia. 5. See below National Osteoporosis Foundation guidelines on when to potentially initiate pharmacologic therapy. AP Spine L1-L4: [BMD (g/cm2): 1.086] [T-Score: -0.9] [Z-Score: -1.2] [BMD Previous: 1.007] [BMD % Change: 7.8] LT Hip Neck: [BMD (g/cm2): 0.775] [T-Score: -1.9] [Z-Score: -1.5] LT Hip Total: [BMD (g/cm2):-0.903] [T-Score:-0.8] [Z-Score: -0.8] [BMD Previous: 0.904] [BMD % Change: na] RT Hip Neck: [BMD (g/cm2):0.743] [T-Score:-2.1] [Z-Score:-1.7] RT Hip Total: [BMD (g/cm2):0.859] [T-score:-1.2] [Z-Score:-1.2] [BMD Previous:0.887] [BMD % Change: na] *Indicates significant change from prior examination based on 95% confidence level. World Health Organization criteria for BMD interpretation classify patients as Normal (T-score at or above -1.0), Osteopenic (T-score between -1.0 and -2.5) or Osteoporotic (T-score at or below -2.5). LIMITATIONS AND MODIFICATION: None. FRACTURE RISK (FRAX SCORE): The ten year probability of (%): Major Osteoporotic Fracture: [ ] Hip Fracture: [ ] Based on the National Osteoporosis Foundation Guidelines, pharmacologic treatment should be initiated in any of the following, unless clinical conditions suggest otherwise: * Any patient with prior fragility fracture of the hip or vertebrae. A spine fracture indicates 5X risk for subsequent spine fracture and 2X risk for subsequent hip fracture. * Osteoporosis (T-score <-2.5). * Postmenopausal women and men age 50 and older with low bone mass/osteopenia (T-score between -1.0 and -2.5) by DXA and 10-year major osteoporotic fracture greater than 20% or a 10-year probability of hip fracture greater than 3%. These fracture risks are supplied above in the FRAX score, if applicable. * Clinician judgement and/or patient preferences may indicate treatment for people with 10-year fracture probabilities above or below these levels. Dictated by: Dictated on workstation # [id number]
--- NOTE | 2018-07-13 21:23 | Diagnostic Imaging Report ---
INDICATION: Right breast carcinoma status post mastectomy. COMPARISON: Correlation is made with prior left mammograms from 03/10/2017 and 09/22/2015. EXAMINATION: 2D and 3D unilateral left diagnostic mammography was performed with CAD. FINDINGS: Scattered fibroglandular densities in the left breast are noted. The parenchyma pattern is stable. No mass or malignant appearing microcalcifications are seen. Left axilla is unremarkable. IMPRESSION: No mammographic features suspicious for malignancy are identified. ACR BI-RADS Category 1: Negative. Result letter will be mailed to the patient. Note: At least 10% of breast cancer is not imaged by mammography. Dictated by: Dictated on workstation # [id number]
== END ==
LOC: RAD 09:00
PROVIDERS: ATTEND Nurse Practitioner Adult Health
DX: Z13.820 Encounter for screening for osteoporosis (principal); C50.511 Malignant neoplasm of lower-outer quadrant of right female breast; E89.40 Asymptomatic postprocedural ovarian failure; M85.89 Other specified disorders of bone density and structure, multiple sites; Z79.811 Long term (current) use of aromatase inhibitors; Z90.11 Acquired absence of right breast and nipple; Z15.01 Genetic susceptibility to malignant neoplasm of breast
CPT/HCPCS: 77080

== ENCOUNTER → 2019-03-02 | Outpatient (CLI) | payer OTHER, MEDICAID ==
[~2019-03-02] MED LIST changes: +CATHETER FLUSH 10 ML SYR IV PRN; +HOLD METFORMIN - RECEIVED CONTRAST 20 ML VIAL IV SCH; +IOHEXOL 350 MG/ML 100 ML (OMNIPAQUE 350) VIAL IV ONE; +NS 100 ML (IVPB) BAG IV ONE
--- NOTE | 2019-03-02 13:43 | Diagnostic Imaging Report ---
INDICATION: Right neck mass. EXAMINATION: Axial imaging through the neck, chest and abdomen was performed after the administration of intravenous contrast. COMPARISON: No prior CT neck study is available for comparison. Comparison is made with prior CT chest and abdomen from 03/06/2015. FINDINGS: CT neck: A BB marker was placed at the area of palpable abnormality in the lower right neck. No underlying mass is identified at this location. The sternocleidomastoid muscle is just deep to the BB marker. No fluid collection at this location is seen. The posterior nasopharynx and oropharynx are unremarkable. Epiglottis and larynx are unremarkable. Submandibular and parotid glands are unremarkable. There appear to be normal-sized jugulodigastric and posterior cervical lymph nodes. IMPRESSION: Unremarkable CT of the neck. CT chest: Postsurgical changes of right mastectomy and right axillary lymph node dissection are noted. No axillary lymphadenopathy is seen. No internal mammary lymphadenopathy is seen. The mediastinum and matias are unremarkable. No pericardial or pleural fluid is detected. Density at right lung apex posteriorly is noted measuring approximately 9 mm. There is a moderate amount of apical pleural parenchymal scarring and thickening. The degree of scarring may be slightly increased since prior. Correlation to prior radiation therapy is recommended. Subpleural nodule in posterolateral right lower lobe stable at 4 mm. No other parenchymal mass is seen. IMPRESSION: Postop changes of right mastectomy and right axillary lymph node dissection. There has been some mild increase in degree of right apical pleural-parenchymal scarring. No thoracic lymphadenopathy or evidence of pulmonary metastatic disease is seen. CT abdomen: No discrete liver mass is identified. The gallbladder is surgically absent. No biliary ductal dilatation is seen. Pancreas and spleen are unremarkable. No adrenal mass is detected. Kidneys are unremarkable. Aorta is non-aneurysmal. No central, retroperitoneal or mesenteric lymphadenopathy is detected. Bowel loops are normal caliber. There is no ascites. IMPRESSION: Stable unremarkable CT of the abdomen. There is no evidence of lymphadenopathy or metastatic disease. Dictated by: Dictated on workstation # [id number]
--- NOTE | 2019-03-02 20:02 | Diagnostic Imaging Report ---
INDICATION: Breast carcinoma. EXAMINATION: Patient was a administered 25.2 mCi technetium 99m MDP intravenously and whole body imaging was performed after a three-hour delay. COMPARISON: Correlation is made with prior whole body bone scan from 03/06/2015. FINDINGS: Uptake of activity by the apical and appendicular skeleton is seen. There is uptake by the kidneys with excretion into the urinary bladder. Previously noted abnormal activity along the right approximately ninth rib is not appreciated on today's study. No suspicious foci of tracer accumulation is identified to suggest osseous metastatic disease. IMPRESSION: No scintigraphic evidence of osseous metastatic disease. Dictated by: Dictated on workstation # [id number]
== END ==
LOC: CARD 12:01
PROVIDERS: ATTEND Nurse Practitioner Adult Health
DX: C50.911 Malignant neoplasm of unspecified site of right female breast (principal); R22.1 Localized swelling, mass and lump, neck; Z15.01 Genetic susceptibility to malignant neoplasm of breast; Z90.11 Acquired absence of right breast and nipple; Z90.49 Acquired absence of other specified parts of digestive tract; Z98.890 Other specified postprocedural states
CPT/HCPCS: 70491; 71260; 74160; 78306

== ENCOUNTER 2019-03-05 14:48 | Outpatient (RCR) | payer OTHER, MEDICAID ==
[2019-02-20 16:05] LABS: BASOPHILS % (AUTO) 1 % (0-10); EOSINOPHILS # (AUTO) 0.1 10^3/uL (0.0-0.3); EOSINOPHILS % (AUTO) 3 % (0-10); HEMATOCRIT 43 % (35-52); HEMOGLOBIN 14.4 G/DL (11.5-16.0); LYMPHOCYTES # (AUTO) 1.2 X 10^3 (1.0-4.0); LYMPHOCYTES % (AUTO) 30 % (12-44); MEAN CORPUSCULAR HEMOGLOBIN 31 PG (25-34); MEAN CORPUSCULAR HGB CONC 34 G/DL (32-36); MEAN CORPUSCULAR VOLUME 92 FL (80-99); MEAN PLATELET VOLUME 9.5 FL (7.4-10.4); MONOCYTES # (AUTO) 0.4 X 10^3 (0.0-1.0); MONOCYTES % (AUTO) 10 % (0-12); NEUTROPHILS # (AUTO) 2.4 X 10^3 (1.8-7.8); NEUTROPHILS % (AUTO) 57 % (42-75); PLATELET COUNT 284 10^3/uL (130-400); RED CELL DISTRIBUTION WIDTH 12.8 % (10.0-14.5); WHITE BLOOD COUNT 4.2 10^3/uL (4.3-11.0)
[2019-02-20 16:29] LABS: ALANINE AMINOTRANSFERASE 18 U/L (0-55); ALBUMIN 4.2 GM/DL (3.2-4.5); ALKALINE PHOSPHATASE 81 U/L (40-136); BILIRUBIN,TOTAL 0.5 MG/DL (0.1-1.0); BUN/CREATININE RATIO 14; CALCIUM 9.7 MG/DL (8.5-10.1); CARBON DIOXIDE 23 MMOL/L (21-32); CHLORIDE 100 MMOL/L (98-107); CREATININE SERUM 0.97 MG/DL (0.60-1.30); GFR ESTIMATED > 60; GLUCOSE 312 MG/DL (70-105); POTASSIUM 4.5 MMOL/L (3.6-5.0); SODIUM 136 MMOL/L (135-145); TOTAL PROTEIN 7.4 GM/DL (6.4-8.2)
[~2019-03-05 14:48] MED LIST changes: -CATHETER FLUSH 10 ML SYR IV PRN; -HOLD METFORMIN - RECEIVED CONTRAST 20 ML VIAL IV SCH; -IOHEXOL 350 MG/ML 100 ML (OMNIPAQUE 350) VIAL IV ONE; -NS 100 ML (IVPB) BAG IV ONE
== END 2019-05-21 | disposition home or self-care (01) ==
LOC: ONC 14:48
PROVIDERS: ATTEND Internal Medicine Hematology & Oncology
DX: C50.511 Malignant neoplasm of lower-outer quadrant of right female breast (principal); C77.3 Secondary and unspecified malignant neoplasm of axilla and upper limb lymph nodes; M85.80 Other specified disorders of bone density and structure, unspecified site; Z17.0 Estrogen receptor positive status [ER+]; Z90.11 Acquired absence of right breast and nipple; Z92.3 Personal history of irradiation; Z79.811 Long term (current) use of aromatase inhibitors
CPT/HCPCS: 36415; 80053; 85025; 99213

== ENCOUNTER → 2019-07-16 | Outpatient (CLI) | payer MEDICAID, BC ==
[~2019-07-16] MED LIST changes: -TRAM50TA2 PO; +TRM50T PO
--- NOTE | 2019-07-16 12:13 | Diagnostic Imaging Report ---
INDICATION: Routine screening. COMPARISON: 07/13/2018 and 03/10/2017. TECHNIQUE: 2D and 3D lateral left screening mammography was performed with CAD. FINDINGS: Scattered fibroglandular densities in the left breast are noted. The parenchymal pattern is stable. No mass or malignant appearing microcalcifications are seen. The left axilla is unremarkable. IMPRESSION: No mammographic features suspicious for malignancy are identified. ACR BI-RADS Category 1: Negative. Result letter will be mailed to the patient. Note: At least 10% of breast cancer is not imaged by mammography. Dictated by: Dictated on workstation # [id number]
== END ==
LOC: RAD 09:44
PROVIDERS: ATTEND Internal Medicine Hematology & Oncology
DX: Z12.31 Encounter for screening mammogram for malignant neoplasm of breast (principal)

== ENCOUNTER 2019-07-19 23:59 | Emergency (ER) | payer OTHER, BC ==
[~2019-07-19] VITALS: Ht 170.1 cm; Wt 95.2 kg
--- NOTE | 2019-07-20 00:24 | ED Lower Extremity ---
General Chief Complaint: Trauma-Non Activation Stated Complaint: FALL AT WORK,SLIPPED LANDING ON LEFT KNEE Source: patient History of Present Illness Date Seen by Provider: Jul 20, 2019 Time Seen by Provider: 00:15 Initial Comments PT ARRIVES VIA POV FROM WORK AT [facility] PT STATES SHE SLIPPED ON WET FLOOR AT WORK AND LANDED DIRECTLY ON HER LEFT KNEE OCCURRED AT 2305 TONIGHT NO OTHER INJURIES NO PRIOR INJURY TO THIS KNEE NO PARESTHESIAS OR MOTOR DEFICITS HAS NOT TAKEN ANYTHING FOR PAIN PCP: VERÓNICA, RODGER BELTRAN Allergies and Home Medications Allergies Coded Allergies: Penicillins (Verified Allergy, Unknown, 07/20/19) Home Medications Calcium Carbonate/Vitamin D3 1 Each Tablet, 1 TAB PO DAILY, (Reported) Cholecalciferol (Vitamin D3) 400 Unit Capsule, 400 UNIT PO DAILY, (Reported) Gabapentin 300 Mg Capsule, 300 MG PO BID, (Reported) LAST FILLED #60 216-17 Glucosamine HCl/Chondr Garcia A Na 1 Each Tablet, 1 TAB PO BID, (Reported) Hydrocodone Bit/Acetaminophen 1 Tab Tab, 1-2 EACH PO Q6H PRN for PAIN-MODERATE Prescribed by: FAUSTO RAMIREZ on 07/20/19 0044 Hydroxyzine Pamoate 25 Mg Capsule, 1-2 EA PO Q6H PRN for ITCHING Prescribed by: ESDRAS DUMONT on 06/01/181705 Insulin Aspart 100 Unit/1 Ml Susp, PER INSULIN PUMP, (Reported) Letrozole 2.5 Mg Tablet, 2.5 MG PO DAILY, (Reported) LAST FILLED #30 16-17 Levothyroxine Sodium 200 Mcg Tablet, 200 MCG PO DAILY, (Reported) Potassium 99 Mg Tablet, 99 MG PO DAILY, (Reported) Pravastatin Sodium 20 Mg Tablet, 20 MG PO HS, (Reported) Tramadol HCl 50 Mg Tablet, 50 MG PO Q6H PRN for PAIN Prescribed by: ESDRAS DUMONT on 06/01/181705 Patient Home Medication List Home Medication List Reviewed: Yes Review of Systems Constitutional: no symptoms reported Respiratory: no symptoms reported Cardiovascular: no symptoms reported Gastrointestinal: no symptoms reported Genitourinary: no symptoms reported Musculoskeletal: see HPI Skin: no symptoms reported Psychiatric/Neurological: No Symptoms Reported Past Cqbzevs-Rwbnfk-Xhtqbg Hx Past Med/Social Hx: Reviewed and Corrections made Patient Social History Alcohol Use: Occasionally Uses (HISTORY OF ABUSE/HEAVY USE, NOW "OCCASIONALY" DRINKS) Alcohol Beverage of Choice: Beer Recreational Drug Use: No Smoking Status: Current Everyday Smoker (1- 2 PPD) Type Used: Cigarettes (1-2 PPD) 2nd Hand Smoke Exposure: Yes Recent Foreign Travel: No Contact w/Someone Who Travel: No Recent Hopitalizations: Yes Immunizations Up To Date Date of Pneumonia Vaccine: Oct 12, 2011 Seasonal Allergies Seasonal Allergies: No Past Medical History Surgeries: Yes ( X 3; CHOLECYSTECTOMY; RIGHT MASTECTOMY; HYSTERECTOMY) Breast, Section, Gallbladder, Hysterectomy, Oophorectomy, Orthopedic Respiratory: No Cardiac: Yes Chronic Edema/Swelling, High Cholesterol Neurological: Yes (PERIPHERAL NEUROPATHY) Headaches /Migraines, Neuropathy 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 Sexually Transmitted Disease: No Genitourinary: No Gastrointestinal: No Musculoskeletal: Yes (BILATERAL CARPAL TUNNEL SURGERY) Endocrine: Yes (IDDM DX AGE 23-HAS INSULIN PUMP;MULTIPLE EPISODES OF DKA ) Diabetes, Insulin dep, Hypothyroidsim HEENT: No Cancer: Yes (RIGHT BREAST CANCER DX 2011/[place] COMPLETED 2012) Breast Did You Recieve Any Treatments: Yes (RIGHT MASTECTOMY) What Type of Treatment Did You: Chemotherapy, Radiation, Surgical Intervention Psychosocial: Yes Depression Integumentary: No Blood Disorders: No Family Medical History Cancer (MPM AND SISTER WITH OVARIAN CANCER) PSH: BILATERAL CARPAL TUNNEL HYST/BSO X 3 CHOLECYSTECTOMY RIGHT MASTECTOMY Physical Exam Vital Signs Vital Signs - First Documented Capillary Refill : Height, Weight, BMI Height: 5'7.00" Weight: 180lbs. 3.2oz. [id number]; 27.4 BMI Method:Stated General Appearance: WD/WN, no apparent distress, other (AMBULATES WITH MILD LIMP ON LEFT) Cardiovascular: normal peripheral pulses, regular rate, rhythm Respiratory: normal breath sounds Hips: bilateral hip normal inspection Legs: bilateral leg non-tender, bilateral leg normal range of motion, bilateral leg no evidence of injury, bilateral leg other (BILATERAL LEG EDEMA 1+ ) Knees: right knee normal inspection; left knee bone tenderness, left knee pain, left knee soft tissue tenderness, left knee other (NO OBVIOUS SWELLING OR BRUISING AT THIS TIME. ROM LIMITED BY PAIN. NO OBVIOUS DEFORMITY. 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 as tested, no motor/sensory deficits, a lert, normal mood/affect, oriented x 3 Skin: normal color, cyanosis; No ecchymosis Procedures/Interventions Splinting and Joint Reduction : Juno wrap: Yes Immobilizers: 24 inch Knee Ordered: Crutches Progress/Results/Core Measures Results/Orders My Orders Orders - JAMESFAUSTO K DO Knee, Left, 4 Views Or > (07/20/19 00:28) Rx-Hydrocodone/Apap 5-325 Mg (Rx-Vicodin (07/20/19 01:00) Vital Signs/I&O 07/20/19 07/20/19 00:10 00:10 Temp 36.3 36.3 Pulse 83 83 Resp 18 18 B/P (MAP) 139/57 (84) 139/57 (84) Pulse Ox 98 98 O2 Delivery Room Air Diagnostic Imaging Comments XRAYS LEFT KNEE--PATELLA FRACTURE, PENDING RADIOLOGIST REVIEW Reviewed: Reviewed by Me Departure Impression Primary Impression: Left patella fracture Disposition: HOME, SELF-CARE Condition: Stable Departure-Patient Inst. Referrals: [facility] [place] (PCP) Primary Care Physician EUGENIO BELTRAN (Family) Primary Care Physician DAVID VINCENT MD, MICHAEL P MD Patient Instructions: Going Up and Down Curbs or Stairs With a Walker or Crutches, How to Use Crutches, Knee Immobilizer (DC), Patella Fracture (DC) Add. Discharge Instructions: JUNO WRAP, KNEE IMMOBILIZER AND CRUTCHES AT ALL TIMES ICE TO AREA AT 20 MINUTE INTERVALS ELEVATE LEFT LEG MUCH POSSIBLE FOLLOW UP WITH DR. VINCENT OR DR. MARSHALL TOMORROW OR TUESDAY FOR FURTHER CARE NO WORK UNTIL RELEASED BY All discharge instructions reviewed with patient and/or family. Voiced understanding. Scripts Hydrocodone Bit/Acetaminophen (Hydrocodone/Acetaminophen 5/325mg Tablet) 1 Tab Tab 1-2 EACH PO Q6H PRN for PAIN-MODERATE MDD 10 for 3 Days, #20 TAB Prov: FAUSTO RAMIREZ DO 07/20/19 FAUSTO RAMIREZ DO Jul 20, 2019 00:24
[2019-07-20] MEDS ORDERED: ACHD5005 PO (00:44)
[2019-07-20] MEDS ORDERED: RX-HYDROCODONE/APAP 5/325 MG #4 TAB PK PO PRN (01:00)
[2019-07-20 01:22] VITALS: BP 139/57
--- NOTE | 2019-07-20 07:08 | Diagnostic Imaging Report ---
INDICATION: Left knee injury. FINDINGS: 4 views of left knee show nondisplaced transverse fracture of the patella. The femur, tibia and fibula appear grossly normal. IMPRESSION: Nondisplaced transverse fracture of the inferior portion of the patella. Dictated by: Dictated on workstation # [id number]
== END 2019-07-20 01:22 | disposition home or self-care (01) ==
LOC: EDUNIT# 23:59 → ER 07-20 00:03
DX: S82.002A Unspecified fracture of left patella, initial encounter for closed fracture (principal); E78.00 Pure hypercholesterolemia, unspecified; E11.42 Type 2 diabetes mellitus with diabetic polyneuropathy; E11.10 Type 2 diabetes mellitus with ketoacidosis without coma; G43.909 Migraine, unspecified, not intractable, without status migrainosus; E03.9 Hypothyroidism, unspecified; F32.9 Major depressive disorder, single episode, unspecified; F17.210 Nicotine dependence, cigarettes, uncomplicated; Z85.3 Personal history of malignant neoplasm of breast; Z90.49 Acquired absence of other specified parts of digestive tract; Z90.710 Acquired absence of both cervix and uterus; Z88.0 Allergy status to penicillin; Z79.4 Long term (current) use of insulin; Z80.41 Family history of malignant neoplasm of ovary; W01.0XXA Fall on same level from slipping, tripping and stumbling without subsequent striking against object, initial encounter; Y92.59 Other trade areas as the place of occurrence of the external cause
CPT/HCPCS: 73564

== ENCOUNTER → 2019-09-04 | Outpatient (CLI) | payer BC, MEDICAID ==
[~2019-09-04] MED LIST changes: +ACHD5005 PO; -LETR2.5T5 PO; +LETR2.5T6 PO
[2019-09-04 15:23] LABS: BASOPHILS % (AUTO) 1 % (0-10); EOSINOPHILS # (AUTO) 0.1 10^3/uL (0.0-0.3); EOSINOPHILS % (AUTO) 3 % (0-10); HEMATOCRIT 39 % (35-52); HEMOGLOBIN 12.8 G/DL (11.5-16.0); LYMPHOCYTES # (AUTO) 1.3 X 10^3 (1.0-4.0); LYMPHOCYTES % (AUTO) 29 % (12-44); MEAN CORPUSCULAR HEMOGLOBIN 30 PG (25-34); MEAN CORPUSCULAR HGB CONC 33 G/DL (32-36); MEAN CORPUSCULAR VOLUME 92 FL (80-99); MONOCYTES # (AUTO) 0.4 X 10^3 (0.0-1.0); MONOCYTES % (AUTO) 8 % (0-12); NEUTROPHILS # (AUTO) 2.8 X 10^3 (1.8-7.8); NEUTROPHILS % (AUTO) 60 % (42-75); PLATELET COUNT 264 10^3/uL (130-400); RED CELL DISTRIBUTION WIDTH 12.8 % (10.0-14.5); WHITE BLOOD COUNT 4.7 10^3/uL (4.3-11.0)
[2019-09-04 15:38] LABS: ALANINE AMINOTRANSFERASE 25 U/L (0-55); ALKALINE PHOSPHATASE 90 U/L (40-136); BILIRUBIN,TOTAL 0.3 MG/DL (0.1-1.0); BUN/CREATININE RATIO 16; CALCIUM 9.6 MG/DL (8.5-10.1); CARBON DIOXIDE 29 MMOL/L (21-32); CHLORIDE 102 MMOL/L (98-107); CREATININE SERUM 0.77 MG/DL (0.60-1.30); GFR ESTIMATED > 60; GLUCOSE 213 MG/DL (70-105); POTASSIUM 4.2 MMOL/L (3.6-5.0); SODIUM 137 MMOL/L (135-145); TOTAL PROTEIN 7.1 GM/DL (6.4-8.2)
== END ==
LOC: EDSTATUS 09-03 15:00 → ONC 15:03
PROVIDERS: ATTEND Internal Medicine Hematology & Oncology
DX: C50.919 Malignant neoplasm of unspecified site of unspecified female breast (principal); E03.9 Hypothyroidism, unspecified; Z15.01 Genetic susceptibility to malignant neoplasm of breast
CPT/HCPCS: 36415; 80053; 84443; 85025; 99213

== ENCOUNTER → 2020-03-27 | Outpatient (CLI) | payer BC, MEDICAID ==
[2020-03-27 10:46] LABS: BASOPHILS # (AUTO) 0.1 10^3/uL (0.0-0.1); BASOPHILS % (AUTO) 1 % (0-10); EOSINOPHILS # (AUTO) 0.3 10^3/uL (0.0-0.3); EOSINOPHILS % (AUTO) 5 % (0-10); HEMATOCRIT 40 % (35-52); HEMOGLOBIN 13.3 g/dL (11.5-16.0); LYMPHOCYTES % (AUTO) 30 % (12-44); MEAN CORPUSCULAR HEMOGLOBIN 31 pg (25-34); MEAN CORPUSCULAR HGB CONC 33 g/dL (32-36); MEAN CORPUSCULAR VOLUME 95 fL (80-99); MEAN PLATELET VOLUME 9.1 fL (9.0-12.2); MONOCYTES # (AUTO) 0.5 10^3/uL (0.0-1.0); MONOCYTES % (AUTO) 7 % (0-12); NEUTROPHILS # (AUTO) 3.6 10^3/uL (1.8-7.8); NEUTROPHILS % (AUTO) 55 % (42-75); PLATELET COUNT 311 10^3/uL (130-400); WHITE BLOOD COUNT 6.5 10^3/uL (4.3-11.0)
[2020-03-27 11:08] LABS: ALANINE AMINOTRANSFERASE 18 U/L (0-55); ALBUMIN 4.4 GM/DL (3.2-4.5); ALKALINE PHOSPHATASE 75 U/L (40-136); BILIRUBIN,TOTAL 0.2 MG/DL (0.1-1.0); BUN/CREATININE RATIO 16; CALCIUM 9.7 MG/DL (8.5-10.1); CARBON DIOXIDE 25 MMOL/L (21-32); CHLORIDE 103 MMOL/L (98-107); CREATININE SERUM 0.91 MG/DL (0.60-1.30); GFR ESTIMATED > 60; GLUCOSE 315 MG/DL (70-105); SODIUM 140 MMOL/L (135-145); TOTAL PROTEIN 7.9 GM/DL (6.4-8.2)
== END ==
LOC: ONC 10:30
PROVIDERS: ATTEND Internal Medicine Hematology & Oncology
DX: C50.511 Malignant neoplasm of lower-outer quadrant of right female breast (principal); Z79.811 Long term (current) use of aromatase inhibitors; Z15.01 Genetic susceptibility to malignant neoplasm of breast; Z90.11 Acquired absence of right breast and nipple; Z92.3 Personal history of irradiation; Z79.899 Other long term (current) drug therapy
CPT/HCPCS: 80053; 82306; 85025; G0463; 99213

== ENCOUNTER → 2020-04-01 | Outpatient (CLI) | payer BC, MEDICAID ==
[~2020-04-01] MED LIST changes: +HOLD METFORMIN - RECEIVED CONTRAST 20 ML VIAL IV SCH; +IOHEXOL 350 MG/ML 100 ML (OMNIPAQUE 350) VIAL IV ONE; +NS 100 ML (IVPB) BAG IV ONE
--- NOTE | 2020-04-01 09:35 | Diagnostic Imaging Report ---
CT NECK/CHEST W Technique: CT imaging of the neck and chest was performed with IV contrast. Automatic exposure controls were utilized to keep dose as low as reasonably achievable. Indication: Breast cancer with neck swelling and hypothyroidism. Comparison: CT neck and chest of 03/02/2019 Findings: NECK: No cervical lymphadenopathy. No thickening of the epiglottis or epiglottic fold. No mass within the floor the mouth. Carotid arteries are patent with mild atherosclerotic plaquing present not resulting in high-grade luminal narrowing. Incidental note of an opacification left frontal sinus. Other paranasal sinuses are clear. Mastoid air cells are also clear. No space-occupying mass. The parotid glands have some patchy calcifications on the left side that are chronic. Submandibular glands are normal. No lytic or blastic skeletal lesions in the neck. CHEST: No endoluminal nodule within trachea. Linear area of postradiation fibrosis in the subpleural periphery of the right upper lobe is stable. No pulmonary mass or nodule has developed that would be suspicious for metastatic disease. No pleural effusion or pneumothorax. No supraclavicular or axillary lymphadenopathy. No mediastinal, hilar or juxtaphrenic lymphadenopathy. Right axillary lymph node dissection is seen. No retropectoral or internal mammary chain lymphadenopathy. Heart is normal in size without pericardial effusion. Normal caliber thoracic aorta. No lytic or blastic skeletal lesions. Impression: 1. No change in the neck or chest to suggest recurrent or metastatic disease. Dictated by: Dictated on workstation # [id number]
== END ==
LOC: RAD 07:45
PROVIDERS: ATTEND Internal Medicine Hematology & Oncology
DX: C50.511 Malignant neoplasm of lower-outer quadrant of right female breast (principal); E03.9 Hypothyroidism, unspecified; R22.1 Localized swelling, mass and lump, neck
CPT/HCPCS: 70491; 71260

== ENCOUNTER 2020-06-23 10:18 | Emergency (ER) | payer BC, MEDICAID ==
[~2020-06-23] VITALS: Ht 170.1 cm; Wt 98.6 kg
[~2020-06-23 10:18] MED LIST changes: -CALC-6 PO; +CALC1TAB84 PO; -HOLD METFORMIN - RECEIVED CONTRAST 20 ML VIAL IV SCH; -IOHEXOL 350 MG/ML 100 ML (OMNIPAQUE 350) VIAL IV ONE; -NS 100 ML (IVPB) BAG IV ONE
[2020-06-23] MEDS ORDERED: NS IV 1000 ML 1,000 ML IV ONE (10:45)
[2020-06-23] MEDS ORDERED: NS IV 1000 ML 1,000 ML IV SCH (10:45)
--- NOTE | 2020-06-23 11:21 | ED General ---
General Stated Complaint: ELEV BLOOD SUGAR/VOMITING Source of Information: Patient Exam Limitations: No Limitations History of Present Illness Date Seen by Provider: Jun 23, 2020 Time Seen by Provider: 11:10 Initial Comments This is a 55 yo female with a history of Type 1 DM who presented via POV with c/o of N/V x2 days. States she has an insulin pump and has been using it despite illness, however her blood glucose has been consistently in the 500's. Denies fever, chills, cough, shortness of breath, abdominal pain. Currently she denies nausea. Allergies and Home Medications Allergies Coded Allergies: Penicillins (Verified Allergy, Unknown, 07/20/19) Home Medications Calcium Carbonate/Vitamin D3 1 Each Tablet, 1 TAB PO DAILY, (Reported) Cefuroxime Axetil 250 Mg Tablet, 250 MG PO BID Prescribed by: GEOVANI ZARCO on 06/23/201906 Cholecalciferol (Vitamin D3) 400 Unit Capsule, 400 UNIT PO DAILY, (Reported) Gabapentin 300 Mg Capsule, 300 MG PO BID, (Reported) LAST FILLED #60 216-17 Glucosamine HCl/Chondr Garcia A Na 1 Each Tablet, 1 TAB PO BID, (Reported) Hydrocodone Bit/Acetaminophen 1 Tab Tab, 1-2 EACH PO Q6H PRN for PAIN-MODERATE Prescribed by: FAUSTO RAMIREZ on 07/20/19 0044 Hydroxyzine Pamoate 25 Mg Capsule, 1-2 EA PO Q6H PRN for ITCHING Prescribed by: ESDRAS DUMONT on 06/01/181705 Insulin Aspart 100 Unit/1 Ml Susp, PER INSULIN PUMP, (Reported) Letrozole 2.5 Mg Tablet, 2.5 MG PO DAILY, (Reported) LAST FILLED #30 16-17 Levothyroxine Sodium 200 Mcg Tablet, 200 MCG PO DAILY, (Reported) Potassium 99 Mg Tablet, 99 MG PO DAILY, (Reported) Pravastatin Sodium 20 Mg Tablet, 20 MG PO HS, (Reported) Tramadol HCl 50 Mg Tablet, 50 MG PO Q6H PRN for PAIN Prescribed by: ESDRAS DUMONT on 06/01/181705 Patient Home Medication List Home Medication List Reviewed: Yes Review of Systems Review of Systems Constitutional: see HPI EENTM: no symptoms reported Respiratory: no symptoms reported Cardiovascular: no symptoms reported Gastrointestinal: see HPI Genitourinary: no symptoms reported Musculoskeletal: no symptoms reported Skin: no symptoms reported Psychiatric/Neurological: No Symptoms Reported Hematologic/Lymphatic: No Symptoms Reported Immunological/Allergic: no symptoms reported All Other Systems Reviewed Negative Unless Noted: Yes Past Ikewzpy-Zijjcf-Looqbo Hx Patient Social History Alcohol Beverage of Choice: Beer Type Used: Cigarettes 2nd Hand Smoke Exposure: Yes Recent Hopitalizations: Yes Immunizations Up To Date Tetanus Booster (TDap): Less than 5yrs PED Vaccines UTD: Yes Date of Pneumonia Vaccine: Oct 12, 2011 Date of Influenza Vaccine: Apr 05, 2019 Seasonal Allergies Seasonal Allergies: No Past Medical History Surgeries: Yes ( X 3; CHOLECYSTECTOMY; RIGHT MASTECTOMY; HYSTERECTOMY) Breast, Section, Gallbladder, Hysterectomy, Oophorectomy, Orthopedic Respiratory: No Cardiac: Yes Chronic Edema/Swelling, High Cholesterol Neurological: Yes (PERIPHERAL NEUROPATHY) Headaches /Migraines, Neuropathy 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 Sexually Transmitted Disease: No Genitourinary: No Gastrointestinal: No Musculoskeletal: Yes (BILATERAL CARPAL TUNNEL SURGERY) Endocrine: Yes (IDDM DX AGE 23-HAS INSULIN PUMP;MULTIPLE EPISODES OF DKA ) Diabetes, Insulin dep, Hypothyroidsim HEENT: No Cancer: Yes (RIGHT BREAST CANCER DX 2011/[place] COMPLETED 2012) Breast Did You Recieve Any Treatments: Yes What Type of Treatment Did You: Chemotherapy, Radiation, Surgical Intervention Psychosocial: Yes Depression Integumentary: No Blood Disorders: No Family Medical History Cancer PSH: BILATERAL CARPAL TUNNEL HYST/BSO X 3 CHOLECYSTECTOMY RIGHT MASTECTOMY Physical Exam Vital Signs Vital Signs - First Documented 06/23/20 10:25 Temp 36.7 Pulse 102 Resp 18 B/P (MAP) 110/59 (76) Pulse Ox 100 O2 Delivery Room Air Capillary Refill : Height, Weight, BMI Height: 5'7.00" Weight: 180lbs. 3.2oz. [id number]; 32.00 BMI Method:Stated General Appearance: No Apparent Distress, WD/WN Eyes: Bilateral Eye Normal Inspection, Bilateral Eye PERRL, Bilateral Eye EOMI HEENT: PERRL/EOMI, Normal ENT Inspection, Pharynx Normal, Moist Mucous Membranes Neck: Full Range of Motion, Supple Respiratory: Lungs Clear, Normal Breath Sounds, No Accessory Muscle Use Cardiovascular: Regular Rate, Rhythm, No Murmur, Normal Peripheral Pulses Gastrointestinal: Normal Bowel Sounds, Non Tender, Soft Extremity: Normal Capillary Refill, Normal Inspection, Normal Range of Motion, No Pedal Edema Neurologic/Psychiatric: Alert, Oriented x3, No Motor/Sensory Deficits, Normal Mood/Affect Skin: Normal Color, Warm/Dry Progress/Results/Core Measures Suspected Sepsis SIRS Temperature: Pulse: Respiratory Rate: Laboratory Tests 06/23/20 11:16: White Blood Count 13.7H Blood Pressure / Mean: Laboratory Tests 06/23/20 11:16: Creatinine 1.54H, Platelet Count 300, Total Bilirubin 0.5 06/23/20 15:56: Creatinine 1.04 Results/Orders Lab Results Laboratory Tests Test 06/23/20 11:16 06/23/20 11:23 06/23/20 11:28 06/23/20 13:58 Range/Units White Blood Count 13.7 H 4.3-11.0 10^3/uL Red Blood Count 4.06 3.80-5.11 10^6/uL Hemoglobin 12.5 11.5-16.0 g/dL Hematocrit 39 35-52 % Mean Corpuscular Volume 96 80-99 fL Mean Corpuscular Hemoglobin 31 25-34 pg Mean Corpuscular Hemoglobin Concent 32 32-36 g/dL Red Cell Distribution Width 12.5 10.0-14.5 % Platelet Count 300 130-400 10^3/uL Mean Platelet Volume 9.4 9.0-12.2 fL Immature Granulocyte % (Auto) 1 % Neutrophils (%) (Auto) 81 H 42-75 % Lymphocytes (%) (Auto) 10 L 12-44 % Monocytes (%) (Auto) 8 0-12 % Eosinophils (%) (Auto) 0 0-10 % Basophils (%) (Auto) 0 0-10 % Neutrophils # (Auto) 11.0 H 1.8-7.8 10^3/uL Lymphocytes # (Auto) 1.3 1.0-4.0 10^3/uL Monocytes # (Auto) 1.1 H 0.0-1.0 10^3/uL Eosinophils # (Auto) 0.0 0.0-0.3 10^3/uL Basophils # (Auto) 0.0 0.0-0.1 10^3/uL Immature Granulocyte # (Auto) 0.2 H 0.0-0.1 10^3/uL Sodium Level 133 L 135-145 MMOL/L Potassium Level 4.6 3.6-5.0 MMOL/L Chloride Level 98 98-107 MMOL/L Carbon Dioxide Level 17 L 21-32 MMOL/L Anion Gap 18 H 5-14 MMOL/L Blood Urea Nitrogen 35 H 7-18 MG/DL Creatinine 1.54 H 0.60-1.30 MG/DL Estimat Glomerular Filtration Rate 35 BUN/Creatinine Ratio 23 Glucose Level 483 *H 70-105 MG/DL Calcium Level 9.3 8.5-10.1 MG/DL Corrected Calcium 9.1 8.5-10.1 MG/DL Magnesium Level 2.2 1.6-2.4 MG/DL Total Bilirubin 0.5 0.1-1.0 MG/DL Aspartate Amino Transf (AST/SGOT) 26 5-34 U/L Alanine Aminotransferase (ALT/SGPT) 22 0-55 U/L Alkaline Phosphatase 105 40-136 U/L Total Protein 8.0 6.4-8.2 GM/DL Albumin 4.3 3.2-4.5 GM/DL Beta-Hydroxybutyrate (Chem panel) 7.11 H 0.00-0.27 MMOL/L Urine Color YELLOW Urine Clarity CLEAR Urine pH 5.5 5-9 Urine Specific [place] 1.025 H 1.016-1.022 Urine Protein NEGATIVE NEGATIVE Urine Glucose (UA) 3+ H NEGATIVE Urine Ketones 3+ H NEGATIVE Urine Nitrite NEGATIVE NEGATIVE Urine Bilirubin 1+ H NEGATIVE Urine Urobilinogen 0.2 < = 1.0 MG/DL Urine Leukocyte Esterase NEGATIVE NEGATIVE Urine RBC (Auto) 1+ H NEGATIVE Urine RBC RARE /HPF Urine WBC 5-10 H /HPF Urine Squamous Epithelial Cells 0-2 /HPF Urine Crystals NONE /LPF Urine Bacteria TRACE /HPF Urine Casts NONE /LPF Urine Mucus NEGATIVE /LPF Urine Culture Indicated NO Glucometer 429 *H 375 H 70-110 MG/DL Test 06/23/20 15:25 06/23/20 15:56 06/23/20 17:12 06/23/20 18:28 Range/Units Blood Gas Puncture Site UNK UNK Blood Gas Patient Temperature 36.7 36 Arterial Blood pH 7.26 *L 7.38 7.37-7.43 Arterial Blood Partial Pressure CO2 40 29 L 35-45 MMHG Arterial Blood Partial Pressure O2 48 L 100 H 79-93 MMHG Arterial Blood HCO3 18 L 17 *L 23-27 MMOL/L Arterial Blood Total CO2 18.8 L 17.9 L 21.0-31.0 MMOL/L Arterial Blood Oxygen Saturation 81 L 97 94-100 % Arterial Blood Base Excess -8.3 L -7.3 L -2.5-2.5 MMOL/L Tom Test NA NA Blood Gas Ventilator Setting NO NO Blood Gas Inspired Oxygen RA RA Sodium Level 136 135-145 MMOL/L Potassium Level 4.0 3.6-5.0 MMOL/L Chloride Level 106 98-107 MMOL/L Carbon Dioxide Level 21 21-32 MMOL/L Anion Gap 9 5-14 MMOL/L Blood Urea Nitrogen 27 H 7-18 MG/DL Creatinine 1.04 0.60-1.30 MG/DL Estimat Glomerular Filtration Rate 55 BUN/Creatinine Ratio 26 Glucose Level 287 H 70-105 MG/DL Calcium Level 8.5 8.5-10.1 MG/DL Glucometer 260 H 70-110 MG/DL Test 06/23/20 19:07 Range/Units Glucometer 275 H 70-110 MG/DL My Orders Orders - GEOVANI ZARCO BUILDING MAINTENANCE WORKER Beta Hydroxybutyrate (06/23/20 12:53) Ns Iv 1000 Ml (Sodium Chloride 0.9%) (06/23/20 13:47) Insulin (Regular) Human (Novolin R (Per (06/23/20 14:30) Insulin (Regular) Human (Novolin R (Per (06/23/20 14:45) Basic Metabolic Panel (06/23/20 15:44) 1/2 Ns Iv Solution (0.45% Sodium Chlorid (06/23/20 16:30) Insulin Regular Drip (Myxredlin 100 Unit (06/23/20 16:30) Arterial Blood Gas (06/23/20 16:37) Arterial Blood Gas (06/23/20 17:43) Accucheck Stat ONCE (06/23/20 18:04) Ceftriaxone For Iv Use (Rocephin For I (06/23/20 19:30) Medications Given in ED Vital Signs/I&O Capillary Refill : Progress Note : Progress Note Upon arrival initial concern is for DKA. Initial labs and UA ordered. Initial labs: WBC-13.7, NA-133, K-4.6, CO2-17, AG-18, BUN-35, Creat-1.54, BG-483, UA-3+ ketones. Orders placed for abg/or vbg. Received 2 liters of NS total and maintenance with 1/2 normal NS. Stopped insulin pump and ordered Regular insulin 5 units IV. Plan is to admit observation to correct acidosis. Discussed case with Dr. Buchanan, recommended continuing to monitor patient in ED at this time while waiting bed. Repeat BMP and ABG shows improvement of PH from 7.26 to PH-7.38, CO2- 17 to 21, NA-133 to 136, AG-18 to 9, BUN 35 to 27, Creat-1.54 to 1.04, BG-260. Was able to correct acidosis throughout ED course. She reported feeling much improved and requested food. BG-275 prior to meal, she corrected Novolog for 60 carbs and gave a 10 unit bolus via pump. Reports feeling comfortable discharging. Reviewed discharge plan of care, she is agreeable with plan. Departure Communication (Admissions) Time/Spoke to Consulting Phy: 18:[address] Buchanan. No beds available at this time for admission. Discussed continuing care in ED and discharging home when stable, she is agreeable with plan. Reviewed the plan of care with the patient at this time and she is agreeable with plan. Impression Primary Impression: Diabetic keto-acidosis Additional Impression: UTI (urinary tract infection) Disposition: 01 HOME, SELF-CARE Condition: Improved Departure-Patient Inst. Decision time for Depature: 19:02 Referrals: [facility]/SHAYNE (PCP) Primary Care Physician EUGENIO BELTRAN (Family) Primary Care Physician Patient Instructions: Nausea and Vomiting, Adult ED, Diabetic Ketoacidosis Add. Discharge Instructions: Plan: 1. Discharge home. 2. Drink plenty of fluids. Take antibiotics as directed and complete full course. 3. Continue taking your insulin, even if your are sick. 4. Follow up with your primary care provider if your symptoms persist. 5. Return for any new or concerning symptoms. Scripts Cefuroxime Axetil (Cefuroxime) 250 Mg Tablet 250 MG PO BID for 7 Days, #10 TAB 0 Refills Prov: GEOVANI ZARCO BUILDING MAINTENANCE WORKER 06/23/20 GEOVANI ZARCO BUILDING MAINTENANCE WORKER Jun 23, 2020 11:21
[2020-06-23 11:31] LABS: BASOPHILS % (AUTO) 0 % (0-10); EOSINOPHILS % (AUTO) 0 % (0-10); HEMATOCRIT 39 % (35-52); HEMOGLOBIN 12.5 g/dL (11.5-16.0); LYMPHOCYTES # (AUTO) 1.3 10^3/uL (1.0-4.0); LYMPHOCYTES % (AUTO) 10 % (12-44); MEAN CORPUSCULAR HEMOGLOBIN 31 pg (25-34); MEAN CORPUSCULAR HGB CONC 32 g/dL (32-36); MEAN CORPUSCULAR VOLUME 96 fL (80-99); MEAN PLATELET VOLUME 9.4 fL (9.0-12.2); MONOCYTES # (AUTO) 1.1 10^3/uL (0.0-1.0); MONOCYTES % (AUTO) 8 % (0-12); NEUTROPHILS % (AUTO) 81 % (42-75); PLATELET COUNT 300 10^3/uL (130-400); WHITE BLOOD COUNT 13.7 10^3/uL (4.3-11.0)
[2020-06-23 11:41] LABS: CLARITY,URINE CLEAR; COLOR,URINE YELLOW; GLUCOSE, URINE (UA) 3+ (NEGATIVE); KETONES,URINE 3+ (NEGATIVE); LEUKOCYTE ESTERASE ,URINE NEGATIVE (NEGATIVE); NITRITE,URINE NEGATIVE (NEGATIVE); PH,URINE 5.5 (5-9); PROTEIN,URINE NEGATIVE (NEGATIVE)
[2020-06-23 11:53] LABS: ALBUMIN 4.3 GM/DL (3.2-4.5); BILIRUBIN,TOTAL 0.5 MG/DL (0.1-1.0); CALCIUM 9.3 MG/DL (8.5-10.1); CREATININE SERUM 1.54 MG/DL (0.60-1.30); MAGNESIUM 2.2 MG/DL (1.6-2.4); POTASSIUM 4.6 MMOL/L (3.6-5.0)
[2020-06-23 11:57] LABS: BACTERIA,URINE TRACE /HPF; RBC,URINE RARE /HPF; SQUAMOUS EPITHELIAL CELL,UR 0-2 /HPF
[2020-06-23 12:17] LABS: BILIRUBIN,URINE 1+ (NEGATIVE)
--- NOTE | 2020-06-23 12:42 | NUR ---
TO ROOM FLUIDS INFUSING NO NEW C/O
[2020-06-23] MEDS ORDERED: NS IV 1000 ML 1,000 ML ONE (13:47)
[2020-06-23] MEDS ORDERED: inSUlin (REGULAR) HUMAN 1 UNIT/0.01 ML (CHARGE PER UNIT) IV ONE ×2 (14:30→14:45)
[2020-06-23 15:28] LABS: ABG BASE EXCESS -8.3 MMOL/L (-2.5-2.5); ABG OXYGEN SATURATION 81 % (94-100); ABG PCO2 40 MMHG (35-45); ABG PO2 48 MMHG (79-93); ABG TCO2 18.8 MMOL/L (21.0-31.0)
[2020-06-23 15:30] LABS: INSPIRED O2 RA; PATIENT TEMP 36.7; VENTILATOR NO
[2020-06-23 15:31] LABS: ABG PH 7.26 (7.37-7.43)
--- NOTE | 2020-06-23 15:58 | NUR ---
TOLERATING ICE CHIPS WELL NO VOMITING WHILE STAY IN ED.
[2020-06-23 16:17] LABS: CALCIUM 8.5 MG/DL (8.5-10.1); CREATININE SERUM 1.04 MG/DL (0.60-1.30)
[2020-06-23] MEDS ORDERED: 1/2 NS IV SOLUTION 1,000 ML IV SCH (16:30)
--- NOTE | 2020-06-23 17:03 | NUR ---
C/O PAIN AT IV SITE IV RESTARTED IN L WRIST BY Manuel MANNING RN
--- NOTE | 2020-06-23 17:58 | NUR ---
FLUIDS STOPPED SO LAB COULD DRAW VENOUS ABG.
[2020-06-23 18:35] LABS: ABG BASE EXCESS -7.3 MMOL/L (-2.5-2.5); ABG OXYGEN SATURATION 97 % (94-100); ABG PCO2 29 MMHG (35-45); ABG PO2 100 MMHG (79-93); ABG TCO2 17.9 MMOL/L (21.0-31.0)
[2020-06-23 18:47] LABS: ABG PH 7.38 (7.37-7.43); INSPIRED O2 RA; PATIENT TEMP 36; VENTILATOR NO
[2020-06-23] MEDS ORDERED: CEFU250T80 PO (19:07)
[2020-06-23] MEDS ORDERED: cefTRIAXone FOR IV USE 1,000 MG in WATER (STERILE) FOR INJECTION 10 ML IV ONE (19:30)
[2020-06-23 19:38] VITALS: BP 119/64
== END 2020-06-23 19:38 | disposition home or self-care (01) ==
LOC: EDUNIT# 10:18 → ER 10:19
DX: E10.10 Type 1 diabetes mellitus with ketoacidosis without coma (principal); N39.0 Urinary tract infection, site not specified; E78.00 Pure hypercholesterolemia, unspecified; E03.9 Hypothyroidism, unspecified; Z80.9 Family history of malignant neoplasm, unspecified; Z77.22 Contact with and (suspected) exposure to environmental tobacco smoke (acute) (chronic); Z88.0 Allergy status to penicillin; Z85.3 Personal history of malignant neoplasm of breast; Z79.890 Hormone replacement therapy; Z79.4 Long term (current) use of insulin
CPT/HCPCS: 36415; 36600; 80048; 80053; 81000; 82010; 82805; 82962; 83735; 85025

== ENCOUNTER → 2020-07-17 | Outpatient (CLI) | payer OTHER, MEDICAID ==
[~2020-07-17] MED LIST changes: +CEFU250T80 PO
--- NOTE | 2020-07-17 09:11 | Diagnostic Imaging Report ---
INDICATION: Routine screening. Correlation is made with prior mammogram 07/16/2019 and 07/13/2018. Unilateral left 2-D and 3-D screening mammography was performed with CAD. Scattered fibroglandular densities are identified in the left breast. The parenchymal pattern is stable. No mass or malignant appearing microcalcifications are seen. Left axilla is unremarkable. IMPRESSION: BI-RADS Category 1 No mammographic features suspicious for malignancy are identified. ACR BI-RADS Category 1: Negative. Result letter will be mailed to the patient. Note: At least 10% of breast cancer is not imaged by mammography. Dictated by: Dictated on workstation # [id number]
== END ==
LOC: RAD 07:30
PROVIDERS: ATTEND Internal Medicine Hematology & Oncology
DX: Z12.31 Encounter for screening mammogram for malignant neoplasm of breast (principal); C50.511 Malignant neoplasm of lower-outer quadrant of right female breast
CPT/HCPCS: 77063

== ENCOUNTER → 2020-11-20 | Outpatient (CLI) | payer OTHER, MEDICAID ==
[2020-11-20 09:12] LABS: BASOPHILS # (AUTO) 0.1 10^3/uL (0.0-0.1); BASOPHILS % (AUTO) 1 % (0-10); EOSINOPHILS # (AUTO) 0.1 10^3/uL (0.0-0.3); EOSINOPHILS % (AUTO) 3 % (0-10); HEMATOCRIT 39 % (35-52); HEMOGLOBIN 13.1 g/dL (11.5-16.0); LYMPHOCYTES # (AUTO) 1.7 10^3/uL (1.0-4.0); LYMPHOCYTES % (AUTO) 34 % (12-44); MEAN CORPUSCULAR HEMOGLOBIN 31 pg (25-34); MEAN CORPUSCULAR HGB CONC 33 g/dL (32-36); MEAN CORPUSCULAR VOLUME 94 fL (80-99); MEAN PLATELET VOLUME 9.5 fL (9.0-12.2); MONOCYTES # (AUTO) 0.4 10^3/uL (0.0-1.0); MONOCYTES % (AUTO) 9 % (0-12); NEUTROPHILS # (AUTO) 2.7 10^3/uL (1.8-7.8); NEUTROPHILS % (AUTO) 53 % (42-75); PLATELET COUNT 272 10^3/uL (130-400); WHITE BLOOD COUNT 5.1 10^3/uL (4.3-11.0)
[2020-11-20 09:31] LABS: ALANINE AMINOTRANSFERASE 13 U/L (0-55); ALBUMIN 4.2 GM/DL (3.2-4.5); ALKALINE PHOSPHATASE 65 U/L (40-136); BILIRUBIN,TOTAL 0.3 MG/DL (0.1-1.0); BUN/CREATININE RATIO 19; CARBON DIOXIDE 25 MMOL/L (21-32); CHLORIDE 101 MMOL/L (98-107); CREATININE SERUM 0.95 MG/DL (0.60-1.30); GFR ESTIMATED > 60; GLUCOSE 348 MG/DL (70-105); SODIUM 135 MMOL/L (135-145); TOTAL PROTEIN 7.4 GM/DL (6.4-8.2)
== END ==
LOC: ONC 08:54
PROVIDERS: ATTEND Internal Medicine Hematology & Oncology
DX: C50.511 Malignant neoplasm of lower-outer quadrant of right female breast (principal); M85.80 Other specified disorders of bone density and structure, unspecified site; C77.9 Secondary and unspecified malignant neoplasm of lymph node, unspecified; I10 Essential (primary) hypertension; E03.9 Hypothyroidism, unspecified; E11.9 Type 2 diabetes mellitus without complications; Z92.21 Personal history of antineoplastic chemotherapy; Z92.3 Personal history of irradiation; Z78.0 Asymptomatic menopausal state
CPT/HCPCS: 80053; 85025; G0463; 99213

== ENCOUNTER → 2020-12-09 | Outpatient (CLI) | payer MEDICAID, OTHER ==
--- NOTE | 2020-12-09 10:59 | Diagnostic Imaging Report ---
INDICATION: Postmenopausal state. COMPARISON: 07/13/2018 FINDINGS: AP Spine L1-L4: [BMD (g/cm2): 1.028] [T-Score: -1.4] [Z-Score: -1.7] [BMD Previous: 1.086] [BMD % Change: -5.3] LT Hip Neck: [BMD (g/cm2): 0.773] [T-Score: -1.9] [Z-Score: -1.6] LT Hip Total: [BMD (g/cm2):0.899] [T-Score:-0.9] [Z-Score: -0.9] [BMD Previous: 0.903] [BMD % Change: -0.4] RT Hip Neck: [BMD (g/cm2):0.756] [T-Score:-2.0] [Z-Score:-1.7] RT Hip Total: [BMD (g/cm2):0.879] [T-score:-1.0] [Z-Score:-1.1] [BMD Previous:0.859] [BMD % Change:2.3] *Indicates significant change from prior examination based on 95% confidence level. World Health Organization criteria for BMD interpretation classify patients as Normal (T-score at or above -1.0), Osteopenic (T-score between -1.0 and -2.5) or Osteoporotic (T-score at or below -2.5). LIMITATIONS AND MODIFICATION: None. FRACTURE RISK (FRAX SCORE): The ten year probability of (%): Major Osteoporotic Fracture: [13.0] Hip Fracture: [2.9] IMPRESSION: 1. Osteopenia (Low bone mass). 2. No significant change in bone mineral density since prior examination. 3. See below National Osteoporosis Foundation guidelines on when to potentially initiate pharmacologic therapy. Based on the National Osteoporosis Foundation Guidelines, pharmacologic treatment should be initiated in any of the following, unless clinical conditions suggest otherwise: * Any patient with prior fragility fracture of the hip or vertebrae. A spine fracture indicates 5X risk for subsequent spine fracture and 2X risk for subsequent hip fracture. * Osteoporosis (T-score <-2.5). * Postmenopausal women and men age 50 and older with low bone mass/osteopenia (T-score between -1.0 and -2.5) by DXA and 10-year major osteoporotic fracture greater than 20% or a 10-year probability of hip fracture greater than 3%. These fracture risks are supplied above in the FRAX score, if applicable. * Clinician judgement and/or patient preferences may indicate treatment for people with 10-year fracture probabilities above or below these levels. Dictated by: Dictated on workstation # [id number]
== END ==
LOC: RAD 09:19
PROVIDERS: ATTEND Nurse Practitioner Adult Health
DX: M85.80 Other specified disorders of bone density and structure, unspecified site (principal); Z78.0 Asymptomatic menopausal state
CPT/HCPCS: 77080

== ENCOUNTER → 2021-05-14 | Outpatient (CLI) | payer MEDICAID ==
[2021-05-14 09:46] LABS: BASOPHILS # (AUTO) 0.1 10^3/uL (0.0-0.1); BASOPHILS % (AUTO) 1 % (0-10); EOSINOPHILS # (AUTO) 0.2 10^3/uL (0.0-0.3); EOSINOPHILS % (AUTO) 2 % (0-10); HEMATOCRIT 38 % (35-52); HEMOGLOBIN 12.5 g/dL (11.5-16.0); LYMPHOCYTES # (AUTO) 1.3 10^3/uL (1.0-4.0); LYMPHOCYTES % (AUTO) 18 % (12-44); MEAN CORPUSCULAR HEMOGLOBIN 32 pg (25-34); MEAN CORPUSCULAR HGB CONC 33 g/dL (32-36); MEAN CORPUSCULAR VOLUME 95 fL (80-99); MEAN PLATELET VOLUME 9.4 fL (9.0-12.2); MONOCYTES # (AUTO) 0.6 10^3/uL (0.0-1.0); MONOCYTES % (AUTO) 8 % (0-12); NEUTROPHILS # (AUTO) 4.8 10^3/uL (1.8-7.8); NEUTROPHILS % (AUTO) 69 % (42-75); PLATELET COUNT 284 10^3/uL (130-400); WHITE BLOOD COUNT 6.9 10^3/uL (4.3-11.0)
[2021-05-14 10:03] LABS: ALBUMIN 3.9 GM/DL (3.2-4.5); BILIRUBIN,TOTAL 0.3 MG/DL (0.1-1.0); CALCIUM 9.3 MG/DL (8.5-10.1); CREATININE SERUM 0.78 MG/DL (0.60-1.30); POTASSIUM 4.1 MMOL/L (3.6-5.0); TOTAL PROTEIN 7.3 GM/DL (6.4-8.2)
== END ==
LOC: ONC 09:26
PROVIDERS: ATTEND Internal Medicine Hematology & Oncology
DX: C50.911 Malignant neoplasm of unspecified site of right female breast (principal); M81.0 Age-related osteoporosis without current pathological fracture; I10 Essential (primary) hypertension; E03.9 Hypothyroidism, unspecified; E66.01 Morbid (severe) obesity due to excess calories; Z79.811 Long term (current) use of aromatase inhibitors; Z90.11 Acquired absence of right breast and nipple
CPT/HCPCS: 80053; 82306; 85025; G0463; 99213

== ENCOUNTER 2022-07-23 09:45 | Day surgery (SDC) | payer OTHER, MEDICAID ==
[~2022-07-23] VITALS: Ht 170 cm; Wt 99.7 kg
[2022-07-23] VITALS (11 sets, daily range): BP systolic 123–150; BP diastolic 61–79
[2022-07-23 10:35] LABS: BASOPHILS # (AUTO) 0.1 10^3/uL (0.0-0.1); BASOPHILS % (AUTO) 0 % (0-10); EOSINOPHILS % (AUTO) 0 % (0-10); HEMATOCRIT 35 % (35-52); HEMOGLOBIN 11.9 g/dL (11.5-16.0); LYMPHOCYTES # (AUTO) 1.1 10^3/uL (1.0-4.0); LYMPHOCYTES % (AUTO) 10 % (12-44); MEAN CORPUSCULAR HEMOGLOBIN 31 pg (25-34); MEAN CORPUSCULAR HGB CONC 34 g/dL (32-36); MEAN CORPUSCULAR VOLUME 91 fL (80-99); MEAN PLATELET VOLUME 9.5 fL (9.0-12.2); MONOCYTES # (AUTO) 0.9 10^3/uL (0.0-1.0); MONOCYTES % (AUTO) 8 % (0-12); NEUTROPHILS # (AUTO) 9.8 10^3/uL (1.8-7.8); NEUTROPHILS % (AUTO) 82 % (42-75); PLATELET COUNT 271 10^3/uL (130-400)
--- NOTE | 2022-07-23 10:38 | ED GI ---
General Chief Complaint: Abdominal/GI Problems Stated Complaint: NAUSEA | VOMITING | Nursing Triage Note: PT CO OF ABD PAIN, SINCE TUESDAY, PT STATES IS IDDM. STATES BS 140 THIS AM. WAS SEEN AT [facility] YESTERDAY AND RECEIVED A BAG OF FLUIDS. N/V/D. DECREASED URINATION Source of Information: Patient Exam Limitations: No Limitations History of Present Illness Date Seen by Provider: Jul 23, 2022 Time Seen by Provider: 10:19 Initial Comments This 57-year-old woman who presents to the emergency room with primary complaints of nausea, vomiting, diarrhea, and abdominal pain. Today is her fourth day of symptoms. She denies any blood in her stools. She has been unable to eat any solids and believes she is dehydrated. She presented to the clinic yesterday where urinalysis was performed. Reportedly dehydration was suspected based on urinalysis, and she was given IV fluids. She has not been taking any prescribed or [id number] medications for her symptoms. She is a type I diabetic with a current fingerstick blood sugar of 163. She denies any fever, chills, shortness of breath, or bloody stools. She reports pain as 8/10 but declines any pain medication at this time. She is not nauseated at present. Her primary care provider is Louisa at [facility]. Vital signs are stable and unremarkable at present. She denies any prior history of bowel obstruction, colitis, or diverticulitis. She has had hysterectomy with BSO and cholecystectomy. She has had decreased urine output without dysuria or hematuria. Allergies and Home Medications Allergies Coded Allergies: Penicillins (Verified Allergy, Unknown, 07/20/19) Patient Home Medication List Home Medication List Reviewed: Yes Calcium Carbonate/Vitamin D3 (Calcium 600 + Vit D 200 Tablet) 1 Each Tablet, 1 TAB PO DAILY, (Reported) Entered as Reported by: FARTUN REESE on 10/21/16 1014 Cefuroxime Axetil (Cefuroxime) 250 Mg Tablet, 250 MG PO BID Prescribed by: GEOVANI ZARCO on 06/23/201906 Cholecalciferol (Vitamin D3) (Vitamin D3) 400 Unit Capsule, 400 UNIT PO DAILY, (Reported) Entered as Reported by: FARTUN REESE on 10/21/16 1014 Gabapentin (Gabapentin) 300 Mg Capsule, 300 MG PO BID, (Reported) Entered as Reported by: FARTUN REESE on 10/21/16 1015 Glucosamine HCl/Chondr Garcia A Na (Osteo Bi-Flex Caplet) 1 Each Tablet, 1 TAB PO BID, (Reported) Entered as Reported by: FARTUN REESE on 10/21/16 1014 Hydrocodone Bit/Acetaminophen (Lortab 5 Mg Tablet) 1 Tab Tab, 1-2 EACH PO Q6H PRN for PAIN-MODERATE Prescribed by: FAUSTO RAMIREZ on 07/20/19 0044 Hydroxyzine Pamoate (Vistaril) 25 Mg Capsule, 1-2 EA PO Q6H PRN for ITCHING Prescribed by: ESDRAS DUMONT on 06/01/18 170 Insulin Aspart (Novolog) 100 Unit/1 Ml Susp, PER INSULIN PUMP, (Reported) Entered as Reported by: FARTUN REESE on 10/21/16 1015 Letrozole (Letrozole) 2.5 Mg Tablet, 2.5 MG PO DAILY, (Reported) Entered as Reported by: FARTUN REESE on 10/21/16 1015 Levothyroxine Sodium (Levothyroxine Sodium) 200 Mcg Tablet, 200 MCG PO DAILY, (Reported) Entered as Reported by: FARTUN REESE on 10/21/16 1015 Potassium (Potassium) 99 Mg Tablet, 99 MG PO DAILY, (Reported) Entered as Reported by: FARTUN REESE on 10/21/16 1015 Pravastatin Sodium (Pravastatin Sodium) 20 Mg Tablet, 20 MG PO HS, (Reported) Entered as Reported by: FARTUN REESE on 10/21/16 1014 Tramadol HCl (Tramadol HCl) 50 Mg Tablet, 50 MG PO Q6H PRN for PAIN Prescribed by: ESDRAS DUMONT on 06/01/18 170 Review of Systems Review of Systems Constitutional: no symptoms reported EENTM: No Symptoms Reported Respiratory: No Symptoms Reported Cardiovascular: No Symptoms Reported Gastrointestinal: See HPI Genitourinary: No Symptoms Reported Musculoskeletal: no symptoms reported Skin: no symptoms reported Psychiatric/Neurological: No Symptoms Reported Endocrine: See HPI Hematologic/Lymphatic: No Symptoms Reported Past Ppmljbu-Mutcoy-Bjnlzw Hx Patient Social History Tobacco Use?: No Smoking Status: Former Smoker Use of E-Cig and/or Vaping dev: Yes Use of E-Cig and/or Vaping Colin: Current Everyday User Substance use?: No Alcohol Use?: Yes Alcohol Frequency: Once in a while Pt feels they are or have been: No Immunizations Up To Date Tetanus Booster (TDap): Less than 5yrs PED Vaccines UTD: Yes Influenza Vaccine Up-to-Date: Yes; Up-to-Date First/Initial COVID19 Vaccinat: Y Second COVID19 Vaccination Al: Y Third COVID19 Vaccination Date: Y Seasonal Allergies Seasonal Allergies: No Past Medical History Surgery/Hospitalization HX: IDDM,MAST R SIDE, , HYST, GB Surgeries: Yes ( X 3; CHOLECYSTECTOMY; HYSTERECTOMY/BSO; B MASTECTOMY) Breast (Wan mastectomy w reconstruction, lymph nodes), Section, Gallbladder, Hysterectomy, Oophorectomy, Orthopedic (Carpal tunnel) Respiratory: No Cardiac: Yes Chronic Edema/Swelling, High Cholesterol Neurological: Yes (PERIPHERAL NEUROPATHY) Headaches /Migraines, Neuropathy 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 Sexually Transmitted Disease: No Genitourinary: No Gastrointestinal: No Musculoskeletal: Yes (BILATERAL CARPAL TUNNEL SURGERY) Endocrine: Yes (IDDM DX AGE 23-HAS INSULIN PUMP;MULTIPLE EPISODES OF DKA ) Diabetes, Insulin dep (Type I), Hypothyroidsim HEENT: No Cancer: Yes (RIGHT BREAST CANCER DX 2011/[place] COMPLETED 2012) Breast Did You Recieve Any Treatments: Yes What Type of Treatment Did You: Chemotherapy, Radiation, Surgical Intervention Psychosocial: Yes Depression Integumentary: No Blood Disorders: No Family Medical History Cancer PSH: BILATERAL CARPAL TUNNEL HYST/BSO X 3 CHOLECYSTECTOMY RIGHT MASTECTOMY Physical Exam Vital Signs Vital Signs - First Documented 07/23/22 10:10 Temp 35.7 Pulse 90 Resp 18 B/P (MAP) 117/59 (78) Pulse Ox 95 Capillary Refill : Less Than 3 Seconds Height/Weight/BMI Height: 5'7.00" Weight: 180lbs. 3.2oz. 81.756272wg; 34.00 BMI Method:Stated General Appearance: WD/WN, no apparent distress HEENT: PERRL/EOMI, normal ENT inspection, other (Mucous membranes somewhat dry) Neck: normal inspection Respiratory: lungs clear, normal breath sounds, no respiratory distress Cardiovascular: regular rate, rhythm, no edema, no murmur Gastrointestinal: soft, abnormal bowel sounds (Decreased); No distended; tenderness (Tenderness to percussion and palpation throughout, tympany with percussion); No mass Extremities: normal inspection, no pedal edema Neurologic/Psychiatric: no motor/sensory deficits, alert, normal mood/affect, oriented x 3 Skin: normal color, warm/dry Progress/Results/Core Measures Results/Orders Lab Results Laboratory Tests Test 07/23/22 10:18 07/23/22 10:25 Range/Units Glucometer 163 H 70-110 MG/DL White Blood Count 12.0 H 4.3-11.0 10^3/uL Red Blood Count 3.85 3.80-5.11 10^6/uL Hemoglobin 11.9 11.5-16.0 g/dL Hematocrit 35 35-52 % Mean Corpuscular Volume 91 80-99 fL Mean Corpuscular Hemoglobin 31 25-34 pg Mean Corpuscular Hemoglobin Concent 34 32-36 g/dL Red Cell Distribution Width 13.3 10.0-14.5 % Platelet Count 271 130-400 10^3/uL Mean Platelet Volume 9.5 9.0-12.2 fL Immature Granulocyte % (Auto) 0 % Neutrophils (%) (Auto) 82 H 42-75 % Lymphocytes (%) (Auto) 10 L 12-44 % Monocytes (%) (Auto) 8 0-12 % Eosinophils (%) (Auto) 0 0-10 % Basophils (%) (Auto) 0 0-10 % Neutrophils # (Auto) 9.8 H 1.8-7.8 10^3/uL Lymphocytes # (Auto) 1.1 1.0-4.0 10^3/uL Monocytes # (Auto) 0.9 0.0-1.0 10^3/uL Eosinophils # (Auto) 0.0 0.0-0.3 10^3/uL Basophils # (Auto) 0.1 0.0-0.1 10^3/uL Immature Granulocyte # (Auto) 0.0 0.0-0.1 10^3/uL Sodium Level 135 135-145 MMOL/L Potassium Level 3.9 3.6-5.0 MMOL/L Chloride Level 103 98-107 MMOL/L Carbon Dioxide Level 20 L 21-32 MMOL/L Anion Gap 12 5-14 MMOL/L Blood Urea Nitrogen 9 7-18 MG/DL Creatinine 0.66 0.60-1.30 MG/DL Estimat Glomerular Filtration Rate 104 BUN/Creatinine Ratio 14 Glucose Level 182 H 70-105 MG/DL Calcium Level 9.1 8.5-10.1 MG/DL Corrected Calcium 9.4 8.5-10.1 MG/DL Magnesium Level 1.8 1.6-2.4 MG/DL Total Bilirubin 0.5 0.1-1.0 MG/DL Aspartate Amino Transf (AST/SGOT) 15 5-34 U/L Alanine Aminotransferase (ALT/SGPT) 15 0-55 U/L Alkaline Phosphatase 72 40-136 U/L C-Reactive Protein High Sensitivity 21.83 H 0.00-0.50 MG/DL Total Protein 7.0 6.4-8.2 GM/DL Albumin 3.6 3.2-4.5 GM/DL Lipase < 4 L 8-78 U/L My Orders Orders - BENJA DEY MD Cbc With Automated Diff (07/23/22 10:20) Comprehensive Metabolic Panel (07/23/22 10:20) Hs C Reactive Protein (07/23/22 10:20) Lipase (07/23/22 10:20) Magnesium (07/23/22 10:20) Ed Iv/Invasive Line Start (07/23/22 10:20) Lactated Ringers (Lr 1000 Ml Iv Solution (07/23/22 10:45) Ct Abdomen/Pelvis W (07/23/22 11:01) Fentanyl Inj (Sublimaze Injection) (07/23/22 11:15) Ondansetron Injection (Zofran Injectio (07/23/22 11:15) Iohexol Injection (Omnipaque 350 Mg/Ml 1 (07/23/22 11:15) Received Contrast (Hold Metformin- Contr (07/23/22 11:15) Ns (Ivpb) (Sodium Chloride 0.9% Ivpb Bag (07/23/22 11:15) Bupivacaine 0.5% W/Epi Inj (Sensorcaine (07/23/22 12:24) Cefazolin Injection (Ancef Injection) (07/23/22 13:01) Ns (Ivpb) (Sodium Chloride 0.9% Ivpb Bag (07/23/22 13:03) Medications Given in ED Vital Signs/I&O 07/23/22 07/23/22 10:10 13:01 Temp 35.7 Pulse 90 88 Resp 18 18 B/P (MAP) 117/59 (78) 104/50 Pulse Ox 95 99 Blood Pressure Mean: 78 Progress Progress Note #1: Time: 10:39 Progress Note Patient was interviewed and examined. Fingerstick blood sugar was obtained and was 163. Labs are being processed including CBC, CMP, lipase, CRP, magnesium, and urinalysis. A liter of LR is being infused. Patient declines treatment for pain or nausea at this time. Remainder of treatment and work-up will be based off lab results. There is concern for acute abdomen and possible surgical abdomen. CT is anticipated after review of labs. Progress Note #2: Time: 12:07 Progress Note Patient was hydrated with a liter of LR. Symptoms were controlled with fentanyl and Zofran. Labs were reviewed. There is elevation in WBC and CRP. Labs are otherwise unremarkable as reviewed above. CT revealed evidence of acute appendicitis. Dr. Stone (general surgeon on-call) was notified and will try to take her directly to the OR from the ER. Dr. Buchanan (hospitalist for [facility]) is being consulted for medical management for [facility]. Progress Note #3: Progress Note Patient was held in the ER until taken for surgery. The remainder of her ER stay was uneventful. Diagnostic Imaging Diagonstic Imaging: CT Plain Films/CT/US/NM/MRI: abdomen, pelvis Comments CT scan was viewed by me. There was significant inflammatory change around the cecum. I did not specifically visualize the appendix. Radiologist report was also reviewed. Appendicitis was suspected by the radiologist without abscess or perforation. See report below: NAME: [facility] REC#: [id number] PT STATUS: REG ER : 1965 PHYSICIAN: BENJA DEY MD ADMIT DATE: 07/23/22/ER Draft Date of Exam:07/23/22 CT ABDOMEN/PELVIS W PROCEDURE: CT abdomen and pelvis with contrast. TECHNIQUE: Multiple contiguous axial images were obtained through the abdomen and pelvis after administration of intravenous contrast. Auto Exposure Controls were utilized during the CT exam to meet ALARA standards for radiation dose reduction. All CT scans use one or more of the following dose optimizing techniques: automated exposure control, MA and/or KvP adjustment based on patient size and exam type or iterative reconstruction. INDICATION: Abdominal pain with nausea, vomiting, and diarrhea. Patient has history of breast carcinoma. FINDINGS: The lung bases are clear. No focal liver mass is identified. The gallbladder is surgically absent. There is no biliary ductal dilatation. The pancreas and spleen are unremarkable. No adrenal mass is detected. The kidneys are unremarkable. The aorta is nonaneurysmal. The bowel loops are of normal caliber. There is significant dilatation and wall thickening involving the appendix in the right lower quadrant. There is periappendiceal inflammation and findings are consistent with acute appendicitis. There may be some reactive wall thickening involving the sigmoid colon adjacent to the inflamed appendix. No free fluid or fluid collection is seen. The bladder is decompressed. The uterus is surgically absent. The bony structures are nonacute. IMPRESSION: Findings consistent with acute appendicitis. No abscess formation or bowel obstruction is identified. Dictated on workstation # [id number] Dict: 07/23/22 1120 Trans: 07/23/22 1129 [id number] Interpreted by: SHANTI RAYMUNDO MD Departure Communication (Admissions) Time/Spoke to Admitting Phy: 12:05 Dr. Stone Time/Spoke to Consulting Phy: 12:10 Dr. Buchanan Impression Primary Impression: Acute appendicitis Qualified Codes: K35.20 - Acute appendicitis with generalized peritonitis, without abscess Additional Impression: Nausea vomiting and diarrhea Disposition: ADMITTED INPATIENT Condition: Stable Admissions Decision to Admit Reason: Admit from ER (General) Decision to Admit/Date: Jul 23, 2022 Time/Decision to Admit Time: 12:05 Departure-Patient Inst. Referrals: [facility]/SHAYNE (PCP) Primary Care Physician EUGENIO BELTRAN (Family) Primary Care Physician Copy Copies To 1: [facility]/BENJA MARTINEZ MD Jul 23, 2022 10:38
[2022-07-23] MEDS ORDERED: LACTATED RINGERS 1,000 ML IV ONE (10:45)
[2022-07-23 10:48] LABS: ALBUMIN 3.6 GM/DL (3.2-4.5); CHLORIDE 103 MMOL/L (98-107); POTASSIUM 3.9 MMOL/L (3.6-5.0); SODIUM 135 MMOL/L (135-145)
[2022-07-23 10:49] LABS: CALCIUM 9.1 MG/DL (8.5-10.1)
[2022-07-23 10:50] LABS: GLUCOSE 182 MG/DL (70-105)
[2022-07-23 10:51] LABS: CARBON DIOXIDE 20 MMOL/L (21-32)
[2022-07-23 10:52] LABS: BILIRUBIN,TOTAL 0.5 MG/DL (0.1-1.0)
[2022-07-23 10:53] LABS: ALKALINE PHOSPHATASE 72 U/L (40-136)
[2022-07-23 10:54] LABS: CREATININE SERUM 0.66 MG/DL (0.60-1.30); GFR ESTIMATED 104
[2022-07-23 10:55] LABS: BUN/CREATININE RATIO 14
[2022-07-23 10:57] LABS: ALANINE AMINOTRANSFERASE 15 U/L (0-55); MAGNESIUM 1.8 MG/DL (1.6-2.4)
[2022-07-23 10:58] LABS: LIPASE < 4 U/L (8-78)
[2022-07-23] MEDS ORDERED: ONDANSETRON 4 MG/2 ML (SDV) Z0FRAN IVP ONE (11:15)
[2022-07-23] MEDS ORDERED: fentaNYL INJ 100 MCG/2 ML AMP IVP ONE ×2 (11:15→14:15)
[2022-07-23] MEDS ORDERED: HOLD METFORMIN - RECEIVED CONTRAST 20 ML VIAL IV SCH (11:15)
[2022-07-23] MEDS ORDERED: NS 100 ML (IVPB) BAG IV ONE (11:15)
[2022-07-23] MEDS ORDERED: IOHEXOL 350 MG/ML 100 ML (OMNIPAQUE 350) VIAL IV ONE (11:15)
--- NOTE | 2022-07-23 11:30 | Diagnostic Imaging Report ---
PROCEDURE: CT abdomen and pelvis with contrast. TECHNIQUE: Multiple contiguous axial images were obtained through the abdomen and pelvis after administration of intravenous contrast. Auto Exposure Controls were utilized during the CT exam to meet ALARA standards for radiation dose reduction. All CT scans use one or more of the following dose optimizing techniques: automated exposure control, MA and/or KvP adjustment based on patient size and exam type or iterative reconstruction. INDICATION: Abdominal pain with nausea, vomiting, and diarrhea. Patient has history of breast carcinoma. FINDINGS: The lung bases are clear. No focal liver mass is identified. The gallbladder is surgically absent. There is no biliary ductal dilatation. The pancreas and spleen are unremarkable. No adrenal mass is detected. The kidneys are unremarkable. The aorta is nonaneurysmal. The bowel loops are of normal caliber. There is significant dilatation and wall thickening involving the appendix in the right lower quadrant. There is periappendiceal inflammation and findings are consistent with acute appendicitis. There may be some reactive wall thickening involving the sigmoid colon adjacent to the inflamed appendix. No free fluid or fluid collection is seen. The bladder is decompressed. The uterus is surgically absent. The bony structures are nonacute. IMPRESSION: Findings consistent with acute appendicitis. No abscess formation or bowel obstruction is identified. Dictated by: Dictated on workstation # [id number]
[2022-07-23] MEDS ORDERED: BUP/EPI 0.5% 1:200,000 (SENSORCAINE) 30 ML VIAL ONE (12:24)
[2022-07-23] MEDS ORDERED: fentaNYL INJ 100 MCG/2 ML AMP ONE (12:27)
[2022-07-23] MEDS ORDERED: MIDAZOLAM 2 MG/2 ML (VERSED) VIAL ONE (12:28)
[2022-07-23] MEDS ORDERED: LACTATED RINGERS 1,000 ML IV PRN (12:30)
[2022-07-23] MEDS ORDERED: ROCURONIUM 50 MG/5 ML (ZEMURON) VIAL IV ONE (12:35)
[2022-07-23] MEDS ORDERED: LIDOCAINE JELLY 2% 6 ML SYRINGE ONE (12:35)
[2022-07-23] MEDS ORDERED: proPOfol 200 MG/20 ML (DIPRIVAN) VIAL IV ONE (12:35)
[2022-07-23] MEDS ORDERED: SEVOFLURANE (ULTANE) 15 ML INHAL SOLN ONE (12:36)
--- NOTE | 2022-07-23 12:50 | Progress Note-Pre Operative ---
Pre-Operative Progress Note Date of Available H&P: Jul 23, 2022 Date H&P Reviewed: Jul 23, 2022 Time H&P Reviewed: 12:30 History & Physical: No changes noted Pre-Operative Diagnosis: acute appendicitis ANISA HEWITT MD Jul 23, 2022 12:50
[2022-07-23] MEDS ORDERED: morphine INJ 10 MG/ML 1ML (SYR OR VIAL) IVP PRN ×2 (13:00)
[2022-07-23] MEDS ORDERED: ONDANSETRON 4 MG/2 ML (SDV) Z0FRAN IVP PRN ×2 (13:00→14:15)
[2022-07-23] MEDS ORDERED: ACETAMINOPHEN 325 MG TABLET PO PRN (13:00)
[2022-07-23] MEDS ORDERED: oxyCODONE/APAP 5/325MG (PERCOCET 5) TABLET PO PRN (13:00)
[2022-07-23] MEDS ORDERED: ceFAZolin INJECTION 2,000 MG ONE (13:01)
[2022-07-23] MEDS ORDERED: NS (IVPB) 50 ML ONE (13:03)
--- NOTE | 2022-07-23 13:28 | HISTORY AND PHYSICAL ---
ATTENDING PRIMARY HEAD SULFIDE OPERATOR: Stephanie Brooks APRN HISTORY OF PRESENT ILLNESS: The patient is a 57-year-old female who presented to the emergency department with nausea, vomiting and diarrhea as well as abdominal pain. She states that the abdominal pain had started last night and persisted and became more localized. A CT scan was performed, which did show an edematous appendix consistent with a noncomplicated appendicitis. She does not report any systemic symptoms. No fever or chills and does not report having any symptoms before in the past. PAST MEDICAL HISTORY: Insulin-dependent diabetes, peripheral neuropathy, migraine headaches, history of right breast cancer. PAST SURGICAL HISTORY: section x3, cholecystectomy, total hysterectomy, bilateral mastectomy. ALLERGIES: PENICILLIN. MEDICATIONS: Cefuroxime, gabapentin, hydrocodone, NovoLog insulin, aspartate insulin, letrozole 2.5 mg daily, levothyroxine, potassium, pravastatin, tramadol. SOCIAL HISTORY: Former cigarette smoker, does vape daily. Does drink alcohol socially. FAMILY HISTORY: Noncontributory. VITAL SIGNS: Temperature 37.5, blood pressure 117/59, pulse 90, respirations 18, pulse ox 95% on room air. REVIEW OF SYSTEMS: A well-nourished female, currently in no acute distress. She is not experiencing shortness of breath or difficulty breathing. No chest pain, palpitations or diaphoresis. Intermittent episodes of nausea and vomiting of bilious material. No hematemesis, no coffee-ground emesis. She also has been having loose stools. No red blood per rectum, no dark tarry stools. No fever or chills. No recent inadvertent weight loss. All other review of systems negative. PHYSICAL EXAMINATION: CHEST: Clear. Good breath sounds bilaterally. HEART: Regular, no murmurs. EXTREMITIES: No lower extremity edema. Negative Homans sign. HEENT: No scleral icterus. No cervical lymphadenopathy. ABDOMEN: Soft, nondistended. There is pain in the right lower abdominal quadrant with a McBurney's point tenderness with voluntary guarding, no rebound. SKIN: Warm and dry. LABORATORY DATA: WBC 12.0, hemoglobin 11.9, hematocrit 59, platelets 271, BUN 9, creatinine 0.66. ASSESSMENT AND PLAN: A 57-year-old female with acute noncomplicated appendicitis. The natural history of appendicitis was explained to the patient including the risks and benefits of surgery and she is in full understanding of this and would like to proceed with a laparoscopic appendectomy, which we will proceed with. Job ID: [id number] DocumentID: [id number] Dictated Date: 07/23/2022 12:55:59 Director Of Architecture Date: 07/23/2022 13:27:00 Dictated By: ANISA HEWITT MD
--- NOTE | 2022-07-23 14:02 | Progress Note-Post Operative ---
Post-Operative Progess Note Surgeon (s)/Junior Art Director (s) Surgeon ANISA HEWITT MD Junior Art Director: none Pre-Operative Diagnosis acute appendicitis Post-Operative Diagnosis same Procedure & Operative Findings Date of Procedure 07/23/22 Procedure Performed/Findings laparoscopic appendectomy Anesthesia Type get Estimated Blood Loss Estimated blood loss (mL): minimal Specimens/Packing Specimens Removed appendix ANISA HEWITT MD Jul 23, 2022 14:02
--- NOTE | 2022-07-23 14:13 | Anesthesia-General Post-Op ---
General Patient Condition Mental Status/LOC: Same as Preop Cardiovascular: Satisfactory Nausea/Vomiting: Absent Respiratory: Satisfactory Pain: Controlled Complications: Absent Post Op Complications Complications None Follow Up Care/Instructions Patient Instructions None needed. Anesthesia/Patient Condition Patient Condition Patient is doing well, no complaints, stable vital signs, no apparent adverse anesthesia problems. No complications reported per nursing. LENNOX SANTILLAN CRNA Jul 23, 2022 14:13
[2022-07-23] MEDS ORDERED: HYDROmorphone 2 MG/ML VIAL (DILAUDID) IV ONE (14:15)
[2022-07-23] MEDS ORDERED: morphine INJ 10 MG/ML 1ML (SYR OR VIAL) IVP ONE (14:15)
[2022-07-23] MEDS ORDERED: MEPERIDINE (DEMEROL) INJ 50 MG/ML IVP ONE (14:15)
[2022-07-23] MEDS ORDERED: PROMETHAZINE INJ 25 MG/ML (PHENERGAN) AMP IVP ONE (14:15)
[2022-07-23] MEDS ORDERED: ONDANSETRON 4 MG/2 ML (SDV) Z0FRAN ONE (14:31)
--- NOTE | 2022-07-23 23:11 | OPERATIVE REPORT ---
DATE OF SERVICE: 07/23/2022 ATTENDING PRIMARY PLATE MILL HAND: Stephanie Brooks APRN PREOPERATIVE DIAGNOSIS: Acute appendicitis. POSTOPERATIVE DIAGNOSIS: Acute appendicitis. PROCEDURE: Laparoscopic appendectomy. SURGEON:. Anisa Hewitt MD ANESTHESIA: General endotracheal. ESTIMATED BLOOD LOSS: Minimal. FINDINGS: Necrotic tip of the appendix, no perforation. DISPOSITION: The patient tolerated the procedure well. INDICATIONS: The patient is a 57-year-old female who presented with a 1-day history of pain, which was initially diffuse throughout the abdomen, which was associated with nausea and vomiting as well as diarrhea. She states that the pain became more localized towards the right lower abdominal quadrant. She does not report any systemic symptoms of fever or chills and does not report having these symptoms before in the past. A CT scan was performed, which did show inflammation of the pancreas consistent with acute appendicitis. DESCRIPTION OF PROCEDURE: The patient was brought to the operating room, laid supine on the table. After adequate IV pain and sedative medications and general endotracheal intubation, the abdomen was prepped and draped in standard surgical fashion. An 0.5% Marcaine with epinephrine was then used to anesthetize the overlying skin in the left upper abdominal quadrant and a transverse skin incision made using #15 blade. An 0 silk suture was applied to the medial aspect of the incision for retraction and a Veress needle inserted with a low opening pressure of 0 mmHg. The Veress needle was removed and a 5 mm XL trocar placed followed by 5 mm 45-degree angle laparoscope visualized the peritoneal cavity. A 4-quadrant abdominal exploration was performed. There was inflammation of the ileocecal fat fold of Treves and the appendix cannot be visualized at this time. Under direct visualization, we then proceeded to place a supraumbilical 10mm port after the skin and peritoneal lining were anesthetized using 0.5% Marcaine and a skin incision made using a #15 blade. In a similar manner, a suprapubic 5 mm port was placed. The patient was then placed in a Trendelenburg position. The appendix was inflamed with early necrotic changes of the tip of the appendix, none at the base. There was no perforation. The appendix was then gently dissected out and the appendix at the cecal base as the mesentery were then stapled and transected with a HIREN 45 mm stapler with visualization with good hemostasis. Good hemostasis was observed. The area was then copiously irrigated and suctioned out with no abscess pockets identified. The appendix was then removed through the 10 mm port site using an EndoCatch bag. The 10 mm port site fascia and peritoneum were then closed under direct visualization using a Leandro-Wilbur device and 0 Vicryl suture. The abdomen was desufflated. The remaining ports were removed. All skin incisions were closed using 4-0 Monocryl running subcuticular sutures. Wounds were then cleaned and covered with Dermabond. The patient tolerated the procedure well. POSTOPERATIVE PLAN: We will start IV and oral pain medications as well as a clear liquid diet. Once she is tolerating clears with good pain control with oral pain medications, ambulating well, we will discharge her home where she will be instructed to no heavy lifting or exertion for the next 2 weeks. Job ID: [id number] DocumentID: [id number] Dictated Date: 07/23/2022 14:01:01 Media Executive Date: 07/23/2022 23:08:00 Dictated By: ANISA HEWITT MD MTDD
[2022-07-24] MEDS ORDERED: CIPR500T5 PO (17:17)
[2022-07-24] MEDS ORDERED: ONDA4TAB11 SL (17:17)
[2022-07-24] MEDS ORDERED: METR-145 PO (17:17)
== END 2022-07-23 16:06 | disposition home or self-care (01) ==
LOC: EDUNIT# 09:45 → ER 09:48 → SDC 13:06 → ER 16:06
PROVIDERS: ATTEND Surgery
DX: K35.891 Other acute appendicitis without perforation, with gangrene (principal); E10.40 Type 1 diabetes mellitus with diabetic neuropathy, unspecified; Z79.4 Long term (current) use of insulin; F17.290 Nicotine dependence, other tobacco product, uncomplicated; Z85.3 Personal history of malignant neoplasm of breast; Z96.41 Presence of insulin pump (external) (internal)
CPT/HCPCS: 36415; 74177; 80053; 82947; 83690; 83735; 85025; 86141

== ENCOUNTER 2022-07-24 15:54 | Emergency (ER) | payer OTHER, MEDICAID ==
[~2022-07-24] VITALS: Ht 177.8 cm; Wt 99.7 kg
[2022-07-24] MEDS ORDERED: morphine INJ 10 MG/ML 1ML (SYR OR VIAL) IVP STA (16:07)
--- NOTE | 2022-07-24 16:09 | ED Abdominal Pain ---
General Chief Complaint: Abdominal/GI Problems Stated Complaint: POST OP ABD PAIN Nursing Triage Note: VOMITED ONE TIME AT HOME, HAD LBM ON TUESDAY. TODAY C/O NAUSEA, VOMITING AND BLOATING. APPENDECTOMY YESTERDAY Source of Information: Patient Exam Limitations: No Limitations (URIEL SMALL APRN) History of Present Illness Date Seen by Provider: Jul 24, 2022 Time Seen by Provider: 16:00 Initial Comments Patient is a 57-year-old female who presents to the emergency department for evaluation of increased abdominal pain in the context of a laparoscopic appendectomy yesterday. Patient states her last bowel movement was on and she has not passed gas nor had a bowel movement since the surgery. She states she has had persistent nausea and one episode of emesis today. She states she also feels like she has some abdominal bloating. She states she has not been able to tolerate abdomen prescribed to her by her surgeon due to vomiting afterwards. She denies any fever. States she has had some blood- tinged drainage from the surgical incision around her bellybutton but states the other surgical wounds have looked good. (URIEL SMALL APRN) Allergies and Home Medications Allergies Coded Allergies: Penicillins (Verified Allergy, Unknown, 07/24/22) Patient Home Medication List Home Medication List Reviewed: Yes (URIEL SMALL APRN) Calcium Carbonate/Vitamin D3 (Calcium 600 + Vit D 200 Tablet) 1 Each Tablet, 1 TAB PO DAILY, (Reported) Entered as Reported by: FARTUN REESE on 10/21/16 1014 Cefuroxime Axetil (Cefuroxime) 250 Mg Tablet, 250 MG PO BID Prescribed by: GEOVANI ZARCO on 06/23/20 190 Cholecalciferol (Vitamin D3) (Vitamin D3) 400 Unit Capsule, 400 UNIT PO DAILY, (Reported) Entered as Reported by: FARTUN REESE on 10/21/16 1014 Ciprofloxacin HCl (Ciprofloxacin HCl) 500 Mg Tablet, 500 MG PO BID Prescribed by: Uriel Small on 07/24/22 1717 Gabapentin (Gabapentin) 300 Mg Capsule, 300 MG PO BID, (Reported) Entered as Reported by: FARTUN REESE on 10/21/16 1015 Glucosamine HCl/Chondr Garcia A Na (Osteo Bi-Flex Caplet) 1 Each Tablet, 1 TAB PO BID, (Reported) Entered as Reported by: FARTUN REESE on 10/21/16 1014 Hydrocodone Bit/Acetaminophen (Lortab 5 Mg Tablet) 1 Tab Tab, 1-2 EACH PO Q6H PRN for PAIN-MODERATE Prescribed by: FAUSTO RAMIREZ on 07/20/19 0044 Hydroxyzine Pamoate (Vistaril) 25 Mg Capsule, 1-2 EA PO Q6H PRN for ITCHING Prescribed by: ESDRAS DUMONT on 06/01/18 170 Insulin Aspart (Novolog) 100 Unit/1 Ml Susp, PER INSULIN PUMP, (Reported) Entered as Reported by: FARTUN REESE on 10/21/16 1015 Letrozole (Letrozole) 2.5 Mg Tablet, 2.5 MG PO DAILY, (Reported) Entered as Reported by: FARTUN REESE on 10/21/16 101 Levothyroxine Sodium (Levothyroxine Sodium) 200 Mcg Tablet, 200 MCG PO DAILY, (Reported) Entered as Reported by: FARTUN REESE on 10/21/16 1015 Metronidazole (Metronidazole) 500 Mg Tablet, 500 MG PO Q8H Prescribed by: Uriel Small on 07/24/22 1717 Ondansetron (Ondansetron Odt) 4 Mg Tab.rapdis, 4 MG SL Q4H PRN for NAUSEA/VOMITING Prescribed by: Uriel Small on 07/24/22 171 Potassium (Potassium) 99 Mg Tablet, 99 MG PO DAILY, (Reported) Entered as Reported by: FARTUN REESE on 10/21/16 1015 Pravastatin Sodium (Pravastatin Sodium) 20 Mg Tablet, 20 MG PO HS, (Reported) Entered as Reported by: FARTUN REESE on 10/21/16 101 Tramadol HCl (Tramadol HCl) 50 Mg Tablet, 50 MG PO Q6H PRN for PAIN Prescribed by: ESDRAS DUMONT on 06/01/18 170 Review of Systems Review of Systems Constitutional: no symptoms reported EENTM: No Symptoms Reported Cardiovascular: No Symptoms Reported Gastrointestinal: See HPI, Abdominal Pain, Nausea, Vomiting Genitourinary: No Symptoms Reported Musculoskeletal: no symptoms reported Skin: no symptoms reported Psychiatric/Neurological: No Symptoms Reported Endocrine: No Symptoms Reported Hematologic/Lymphatic: No Symptoms Reported (URIEL SMALL APRN) Past Zyrqpca-Iknnby-Dfjvjq Hx Patient Social History Tobacco Use?: No Use of E-Cig and/or Vaping dev: Yes E-Cig or Vaping type used: Nicotine Substance use?: No Alcohol Use?: Yes Alcohol Frequency: Once in a while (URIEL SMALL APRN) Immunizations Up To Date Tetanus Booster (TDap): Less than 5yrs PED Vaccines UTD: Yes Influenza Vaccine Up-to-Date: Yes; Up-to-Date First/Initial COVID19 Vaccinat: Y Second COVID19 Vaccination Al: Y Third COVID19 Vaccination Date: Y (URIEL SMALL APRN) Seasonal Allergies Seasonal Allergies: No (URIEL SMALL APRN) Past Medical History Surgery/Hospitalization HX: IDDM,MAST R SIDE, , HYST, GB, APPENDECTOMY Surgeries: Yes ( X 3; CHOLECYSTECTOMY; HYSTERECTOMY/BSO; B MASTECTOMY) Breast, Section, Gallbladder, Hysterectomy, Oophorectomy, Orthopedic Respiratory: No Currently Using CPAP: No Currently Using BIPAP: No Cardiac: Yes Chronic Edema/Swelling, High Cholesterol Neurological: Yes (PERIPHERAL NEUROPATHY) Headaches /Migraines, Neuropathy Reproductive Disorders: Yes [employer] History: Hysterectomy Sexually Transmitted Disease: No Genitourinary: No Gastrointestinal: No Musculoskeletal: Yes (BILATERAL CARPAL TUNNEL SURGERY) Endocrine: Yes (IDDM DX AGE 23-HAS INSULIN PUMP;MULTIPLE EPISODES OF DKA ) Diabetes, Insulin dep, Hypothyroidsim HEENT: No Cancer: Yes (RIGHT BREAST CANCER DX 2011/[place] COMPLETED 2012) Breast Did You Recieve Any Treatments: Yes What Type of Treatment Did You: Chemotherapy, Radiation, Surgical Intervention Psychosocial: Yes Depression Integumentary: No Blood Disorders: No (URIEL SMALL APRN) Family Medical History Cancer PSH: BILATERAL CARPAL TUNNEL HYST/BSO X 3 CHOLECYSTECTOMY RIGHT MASTECTOMY (URIEL SMALL APRN) Physical Exam Vital Signs Vital Signs - First Documented 07/24/22 16:01 Temp 36.5 Pulse 83 Resp 18 B/P (MAP) 117/76 (90) Pulse Ox 100 O2 Delivery Room Air (BENJA DEY MD) Vital Signs Capillary Refill : Less Than 3 Seconds (URIEL SMALL APRN) Height/Weight/BMI Height: 5'7.00" Weight: 180lbs. 3.2oz. 81.096015ub; 31.00 BMI Method:Stated General Appearance: WD/WN, no apparent distress HEENT: PERRL/EOMI, normal ENT inspection, TMs normal, pharynx normal Neck: non-tender, full range of motion, supple, normal inspection Respiratory: chest non-tender, lungs clear, normal breath sounds, no respi ratory distress Cardiovascular: regular rate, rhythm Gastrointestinal: normal bowel sounds, soft, tenderness Extremities: normal range of motion, non-tender Neurologic/Psychiatric: no motor/sensory deficits, alert, normal mood/affect, oriented x 3 Skin: normal color, warm/dry Exam Comments 3 well approximated laparoscopy sites noted to the abdomen; subxiphoid and suprapubic sites clean dry and intact; periumbilical incision does have some dried serosanguineous drainage noted; abdomen is slightly distended but no rigidity is noted (URIEL SMALL APRN) Progress/Results/Core Measures Results/Orders Lab Results Laboratory Tests Test 07/24/22 16:18 Range/Units White Blood Count 7.0 4.3-11.0 10^3/uL Red Blood Count 3.52 L 3.80-5.11 10^6/uL Hemoglobin 10.9 L 11.5-16.0 g/dL Hematocrit 33 L 35-52 % Mean Corpuscular Volume 92 80-99 fL Mean Corpuscular Hemoglobin 31 25-34 pg Mean Corpuscular Hemoglobin Concent 34 32-36 g/dL Red Cell Distribution Width 13.0 10.0-14.5 % Platelet Count 303 130-400 10^3/uL Mean Platelet Volume 9.2 9.0-12.2 fL Immature Granulocyte % (Auto) 0 % Neutrophils (%) (Auto) 81 H 42-75 % Lymphocytes (%) (Auto) 13 12-44 % Monocytes (%) (Auto) 6 0-12 % Eosinophils (%) (Auto) 0 0-10 % Basophils (%) (Auto) 0 0-10 % Neutrophils # (Auto) 5.6 1.8-7.8 10^3/uL Lymphocytes # (Auto) 0.9 L 1.0-4.0 10^3/uL Monocytes # (Auto) 0.4 0.0-1.0 10^3/uL Eosinophils # (Auto) 0.0 0.0-0.3 10^3/uL Basophils # (Auto) 0.0 0.0-0.1 10^3/uL Immature Granulocyte # (Auto) 0.0 0.0-0.1 10^3/uL Sodium Level 138 135-145 MMOL/L Potassium Level 3.9 3.6-5.0 MMOL/L Chloride Level 101 98-107 MMOL/L Carbon Dioxide Level 23 21-32 MMOL/L Anion Gap 14 5-14 MMOL/L Blood Urea Nitrogen 10 7-18 MG/DL Creatinine 0.65 0.60-1.30 MG/DL Estimat Glomerular Filtration Rate 104 BUN/Creatinine Ratio 15 Glucose Level 143 H 70-105 MG/DL Calcium Level 9.6 8.5-10.1 MG/DL Corrected Calcium 9.9 8.5-10.1 MG/DL Total Bilirubin 0.3 0.1-1.0 MG/DL Aspartate Amino Transf (AST/SGOT) 16 5-34 U/L Alanine Aminotransferase (ALT/SGPT) 20 0-55 U/L Alkaline Phosphatase 86 40-136 U/L Total Protein 6.9 6.4-8.2 GM/DL Albumin 3.6 3.2-4.5 GM/DL (BENJA DEY MD) Vital Signs/I&O 07/24/22 07/24/22 16:01 17:25 Temp 36.5 Pulse 83 80 Resp 18 16 B/P (MAP) 117/76 (90) 116/60 Pulse Ox 100 96 O2 Delivery Room Air (BENJA DEY MD) Blood Pressure Mean: 90 Progress Progress Note : Progress Note Patient is nontoxic and well-hydrated on exam. No adventitious lung sounds or increased work of breathing noted. Vital signs are reassuring. Abdomen is very slightly distended but there is no rigidity. Abdomen is diffusely tender to palpation as expected postsurgically. Order placed for CBC, CMP, IV line insertion, morphine injection, and ODT Zofran. CBC is largely unremarkable other than very mild anemia as expected in the postsurgical period. CMP without any significant metabolic derangements. Patient had significant improvement in symptoms after the Zofran and morphine. I spoke with her surgeon Dr. Stone who stated the tip of the patient's appendix was quite necrotic when he removed it. He did not notice any ariadna perforation however he feels like a short course of antibiotics is warranted given her increase in pain. Due to her penicillin allergy she will be treated with a short course of ciprofloxacin and metronidazole. She will also be given a pre scription for antiemetics. I discussed the importance of taking the antiemetics waiting 15 to 20 minutes and then taking the analgesia. I also discussed it may decrease the risk of nausea to try to have something small on her stomach when she did take the hydrocodone. Follow-up with Dr. Stone as needed. Return precautions for urgent symptomology discussed. Patient verbalized un derstanding. (URIEL SMALL APRN) Consults : Consulting Physician: ANISA STONE MD (URIEL SMALL APRN) Departure Impression Primary Impression: Postoperative abdominal pain Disposition: HOME, SELF-CARE Condition: Stable Departure-Patient Inst. Decision time for Depature: 17:10 (URIEL SMALL APRN) Referrals: CHANDANA DEY MD (PCP) Primary Care Physician [facility]/ (Family) Primary Care Physician Patient Instructions: Abdominal Pain, Adult ED Scripts Ondansetron (Ondansetron Odt) 4 Mg Tab.rapdis 4 MG SL Q4H PRN for NAUSEA/VOMITING for 5 Days, #20 TAB 0 Refills Prov: URIEL SMALL APRN 07/24/22 Ciprofloxacin HCl (Ciprofloxacin HCl) 500 Mg Tablet 500 MG PO BID for 7 Days, #14 TAB 0 Refills Prov: URIEL SMALL APRN 07/24/22 Metronidazole (Metronidazole) 500 Mg Tablet 500 MG PO Q8H for 7 Days, #21 TAB 0 Refills Prov: URIEL SMALL APRN 07/24/22 ATTENDING PHYSICIAN NOTE: I was physically present as attending physician in the emergency department during the care of this patient, but I was not directly involved in the decision making or delivery of care for this patient. (BENJA DEY MD) URIEL SMALL APRN Jul 24, 2022 16:09 BENJA DEY MD Jul 26, 2022 08:33
[2022-07-24] MEDS ORDERED: ONDANSETRON 4 MG (ZOFRAN) ORAL DISSOLVE TAB PO ONE (16:15)
[2022-07-24 16:28] LABS: BASOPHILS % (AUTO) 0 % (0-10); EOSINOPHILS % (AUTO) 0 % (0-10); HEMATOCRIT 33 % (35-52); HEMOGLOBIN 10.9 g/dL (11.5-16.0); LYMPHOCYTES # (AUTO) 0.9 10^3/uL (1.0-4.0); LYMPHOCYTES % (AUTO) 13 % (12-44); MEAN CORPUSCULAR HEMOGLOBIN 31 pg (25-34); MEAN CORPUSCULAR HGB CONC 34 g/dL (32-36); MEAN CORPUSCULAR VOLUME 92 fL (80-99); MEAN PLATELET VOLUME 9.2 fL (9.0-12.2); MONOCYTES # (AUTO) 0.4 10^3/uL (0.0-1.0); MONOCYTES % (AUTO) 6 % (0-12); NEUTROPHILS # (AUTO) 5.6 10^3/uL (1.8-7.8); NEUTROPHILS % (AUTO) 81 % (42-75); PLATELET COUNT 303 10^3/uL (130-400)
[2022-07-24 16:40] LABS: ALBUMIN 3.6 GM/DL (3.2-4.5); POTASSIUM 3.9 MMOL/L (3.6-5.0)
[2022-07-24 16:41] LABS: CALCIUM 9.6 MG/DL (8.5-10.1)
[2022-07-24 16:43] LABS: TOTAL PROTEIN 6.9 GM/DL (6.4-8.2)
[2022-07-24 16:44] LABS: BILIRUBIN,TOTAL 0.3 MG/DL (0.1-1.0)
[2022-07-24 16:46] LABS: CREATININE SERUM 0.65 MG/DL (0.60-1.30)
[2022-07-24] MEDS ORDERED: CIPR500T5 PO (17:17)
[2022-07-24] MEDS ORDERED: METR-145 PO (17:17)
[2022-07-24] MEDS ORDERED: ONDA4TAB11 SL (17:17)
[2022-07-24 17:25] VITALS: BP 116/60
== END 2022-07-24 17:24 | disposition home or self-care (01) ==
LOC: EDUNIT# 15:54 → ER 15:56
DX: G89.18 Other acute postprocedural pain (principal); R10.84 Generalized abdominal pain; D64.9 Anemia, unspecified; F17.290 Nicotine dependence, other tobacco product, uncomplicated; E11.9 Type 2 diabetes mellitus without complications; Z79.4 Long term (current) use of insulin; Z88.0 Allergy status to penicillin
CPT/HCPCS: 36415; 80053; 85025; 99283